=== PATIENT | female | born 1960 | race American Indian/Alaskan Native ===

== ENCOUNTER 2019-03-24 11:59 | Inpatient (IN) | payer MEDICARE ==
[2019-03-24] MEDS ORDERED: ASPIRIN PO ONE (12:19)
--- NOTE | 2019-03-24 13:04 | XRay Report ---
CHEST 1 VIEW INDICATION: Chest Pain COMPARISON: 08/04/2016 FINDINGS: Support devices: None Heart: Mild cardiomegaly, unchanged. Lungs/Pleura: Mild interstitial disease with small bilateral pleural effusions, suggesting mild conge stive failure. IMPRESSION: 1. Mild cardiomegaly and congestive failure. Signer Name: Dave Hinojosa MD Signed: 03/24/2019 12:59 PM Workstation Name: [id number]
[2019-03-24 13:16] LABS: Basophils % (Auto) 0.3 % (0.0-1.8); Eosinophils % (Auto) 1.4 % (0.0-4.3); Hemoglobin 8.3 gm/dl (10.1-14.3); Lymphocytes # (Auto) 0.3 K/mm3 (1.2-5.4); Lymphocytes % (Auto) 8.9 % (13.4-35.0); Mean Corpuscular HGB Conc 32 % (30-34); Mean Corpuscular Volume 93 fl (79-97); Monocytes # (Auto) 0.3 K/mm3 (0.0-0.8); Monocytes % (Auto) 7.6 % (0.0-7.3); Platelet Count 116 K/mm3 (140-440); Red Blood Count 2.79 M/mm3 (3.65-5.03); Red Cell Distribution Width 15.9 % (13.2-15.2)
--- NOTE | 2019-03-24 13:36 | Emergency Department Report ---
ED Chest Pain HPI - General Chief Complaint: Chest Pain Stated Complaint: CHEST PAIN Time Seen by Provider: 03/24/19 13:03 Source: patient Mode of arrival: Stretcher Limitations: No Limitations - History of Present Illness Initial Comments: 59-year-old female with ESRD, CHF, CAD with stents presents to ED with complaint of chest pain. Patient reports onset of chest pain this morning while she was in the shower. States it was sharp, became worse at dialysis. Patient states she received one hour of dialysis and was sent to the ER. Patient states chest pain currently resolved, also reports shortness of breath. Patient reports she was last dialyzed 4 days ago. Renal: Dr Richar SCHRADER Complaint: chest pain -: This morning Onset: other (while taking a shower) Pain Location: left chest Pain Radiation: none Severity: moderate Severity scale (0 -10): 10 Quality: sharp Consistency: now resolved Improves With: nothing Worsens With: nothing re: dyspnea. denies: nausea, vomting - Related Data Home Medications Medication Instructions Recorded Confirmed Last Taken Gabapentin [Neurontin] 300 mg PO TID 08/20/13 06/17/16 10/09/15 Sertraline [Zoloft] 50 mg PO DAILY 03/09/14 06/17/16 10/09/15 Aspirin [Aspirin BABY CHEW TAB] 81 mg PO QDAY 08/21/15 06/17/16 10/09/15 Insulin Aspart [NovoLOG Flexpen] 10 unit SQ TID 08/21/15 06/17/16 10/09/15 Insulin Glargine,Hum.rec.anlog 20 unit SQ QHS 08/21/15 06/17/16 10/09/15 [Lantus Solostar] Carvedilol [Coreg] 6.25 mg PO BID 10/09/15 06/17/16 10/09/15 Gemfibrozil [Lopid] 600 mg PO BID 10/09/15 06/17/16 10/09/15 Simvastatin [Zocor TAB] 40 mg PO QHS 10/09/15 06/17/16 10/09/15 Losartan [Cozaar] 100 mg PO QDAY 06/17/16 06/17/16 Unknown Previous Rx's Medication Instructions Recorded Last Taken Type levETIRAcetam [Keppra TAB] 500 mg PO BID tablet 08/24/15 10/09/15 Rx NIFEdipine XL [Procardia Xl] 60 mg PO QDAY #30 tablet 06/28/16 Unknown Rx hydrALAZINE [Apresoline TAB] 100 mg PO TID #90 tab 06/28/16 Unknown Rx predniSONE [Deltasone] 20 mg PO QDAY #10 tab 06/28/16 Unknown Rx oxyCODONE /ACETAMINOPHEN [Percocet 1 tab PO Q6HR PRN #20 tablet 08/04/16 Unknown Rx 5/325 mg] Allergies Allergy/AdvReac Type Severity Reaction Status Date / Time No Known Allergies Allergy Unverified 10/09/15 20:10 Heart Score - HEART Score History: Slightly suspicious EKG: Non-specific Age: 45-65 Risk factors: > 3 risk factors or hx of atherosclerotic disease Troponin: 1-3x normal limit HEART Score: 5 ED Review of Systems ROS: Stated complaint: CHEST PAIN Other details as noted in HPI Comment: All other systems reviewed and negative Constitutional: denies: chills, fever Respiratory: shortness of breath Cardiovascular: chest pain Gastrointestinal: denies: nausea, vomiting ED Past Medical Hx - Past Medical History Hx Hypertension: Yes (2011) Hx CVA: Yes (x4, 8 TIAs) Hx Congestive Heart Failure: Yes Hx Diabetes: Yes Hx Renal Disease: Yes (dialysis) Hx Arthritis: Yes Hx Headaches / Migraines: Yes Hx Seizures: Yes Hx Asthma: Yes Hx COPD: No Hx HIV: No - Surgical History Hx Breast Surgery: Yes (reduction (1979)) Additional Surgical History: breast reduction 1979, av fistula left arm - Social History Smoking Status: Unknown if ever smoked - Medications Home Medications: Home Medications Medication Instructions Recorded Confirmed Last Taken Type Gabapentin [Neurontin] 300 mg PO TID 08/20/13 06/17/16 10/09/15 History Sertraline [Zoloft] 50 mg PO DAILY 03/09/14 06/17/16 10/09/15 History Aspirin [Aspirin BABY CHEW TAB] 81 mg PO QDAY 08/21/15 06/17/16 10/09/15 History Insulin Aspart [NovoLOG Flexpen] 10 unit SQ TID 08/21/15 06/17/16 10/09/15 History Insulin Glargine,Hum.rec.anlog 20 unit SQ QHS 08/21/15 06/17/16 10/09/15 History [Lantus Solostar] levETIRAcetam [Keppra TAB] 500 mg PO BID tablet 08/24/15 06/17/16 10/09/15 Rx Carvedilol [Coreg] 6.25 mg PO BID 10/09/15 06/17/16 10/09/15 History Gemfibrozil [Lopid] 600 mg PO BID 10/09/15 06/17/16 10/09/15 History Simvastatin [Zocor TAB] 40 mg PO QHS 10/09/15 06/17/16 10/09/15 History Losartan [Cozaar] 100 mg PO QDAY 06/17/16 06/17/16 Unknown History NIFEdipine XL [Procardia Xl] 60 mg PO QDAY #30 tablet 06/28/16 Unknown Rx hydrALAZINE [Apresoline TAB] 100 mg PO TID #90 tab 06/28/16 Unknown Rx predniSONE [Deltasone] 20 mg PO QDAY #10 tab 06/28/16 Unknown Rx oxyCODONE /ACETAMINOPHEN [Percocet 1 tab PO Q6HR PRN #20 tablet 08/04/16 Unknown Rx 5/325 mg] ED Physical Exam - General Limitations: No Limitations General appearance: alert, in no apparent distress - Head Head exam: Present: atraumatic, normocephalic - Eye Eye exam: Present: normal appearance, PERRL, EOMI - ENT ENT exam: Present: mucous membranes moist - Neck Neck exam: Present: normal inspection - Respiratory Respiratory exam: Present: normal lung sounds bilaterally. Absent: respiratory distress - Cardiovascular Cardiovascular Exam: Present: regular rate, normal rhythm - GI/Abdominal GI/Abdominal exam: Present: soft. Absent: distended, tenderness - Extremities Exam Extremities exam: Present: normal inspection - Neurological Exam Neurological exam: Present: alert, oriented X3 - Psychiatric Psychiatric exam: Present: normal affect, normal mood - Skin Skin exam: Present: warm, dry, intact, normal color ED Course Vital Signs 03/24/19 03/24/19 03/24/19 12:15 13:15 14:15 Temperature 97.7 F Pulse Rate 85 80 Respiratory 19 16 16 Rate Blood Pressure 154/58 144/68 135/66 [Right] O2 Sat by Pulse 100 100 100 Oximetry 03/24/19 03/24/19 03/24/19 15:15 17:33 18:00 Temperature 98.2 F Pulse Rate 82 92 H 78 Respiratory 16 14 16 Rate Blood Pressure 151/72 133/103 145/88 [Right] O2 Sat by Pulse 100 100 100 Oximetry 03/24/19 19:15 Temperature 98.2 F Pulse Rate 84 Respiratory 13 Rate Blood Pressure 140/61 [Right] O2 Sat by Pulse 100 Oximetry ED Medical Decision Making - Lab Data Result diagrams: 03/24/19 13:04 03/24/19 13:04 - EKG Data -: EKG Interpreted by Me EKG shows normal: sinus rhythm, intervals, QRS complexes, ST-T waves Rate: normal - EKG Data Interpretation: no acute changes - Radiology Data Radiology results: report reviewed, image reviewed - Medical Decision Making - chest pain today, sent from dialysis, dialyzed x 1 hr - no resp distress, O2 sats normal - EKG shows no ST changes, trop elevated, however could also be due to renal function - remainder of labs unremarkable, including potassium - will admit to hospitalist for further workup - Differential Diagnosis ACS, pulm edema, pneumonia Critical care attestation.: If time is entered above; I have spent that time in minutes in the direct care of this critically ill patient, excluding procedure time. ED Disposition Clinical Impression: Acute chest pain, Pulmonary edema, ESRD (end stage renal disease) Disposition: OP ADMIT IP TO THIS HOSP Is pt being admited?: Yes Condition: Stable Time of Disposition: 16:24
[2019-03-24] MEDS ORDERED: BABY ASPIRIN PO ONE (14:17)
[2019-03-24] MEDS ORDERED: BABY ASPIRIN ONE (14:21)
[2019-03-24 14:24] LABS: Chol/HDL Ratio 2.41 %
[2019-03-24] MEDS ORDERED: PERCOCET 5/325 PO PRN ×2 (20:46→20:48)
[2019-03-24] MEDS ORDERED: ZOFRAN IV PRN (20:48)
[2019-03-24] MEDS ORDERED: REGLAN IV PRN (20:48)
[2019-03-24] MEDS ORDERED: DILAUDID IV PRN (20:48)
[2019-03-24] MEDS ORDERED: SODIUM CHLORIDE FLUSH SYRINGE 10 ML IV PRN (20:48)
[2019-03-24] MEDS ORDERED: TYLENOL PO PRN (20:48)
[2019-03-24] MEDS: ZOLOFT PO SCH (22:45)
[2019-03-24] MEDS: COREG PO SCH (22:45)
[2019-03-24] MEDS: LOPID PO SCH (22:45)
[2019-03-24] MEDS: PEPCID IV SCH (22:45)
[2019-03-24] MEDS: KEPPRA PO SCH (22:45)
[2019-03-24] MEDS: COZAAR PO SCH (22:45)
[2019-03-24] MEDS: NEURONTIN PO SCH (22:51)
[2019-03-24] MEDS ORDERED: HEPARIN/ 0.45% NACL-25,000 UNIT/500 ML 25,000 UNIT/500 ML BAG IV SCH (23:45)
[2019-03-25] MEDS: SODIUM CHLORIDE FLUSH SYRINGE 10 ML IV SCH ×3 (00:33→22:25)
[2019-03-25 00:41] LABS: Hematocrit 24.9 % (30.3-42.9); Hemoglobin 7.9 gm/dl (10.1-14.3)
[2019-03-25 00:54] LABS: INR 1.12 (0.87-1.13)
--- NOTE | 2019-03-25 03:36 | Event Note ---
Date: 03/24/19 See H/p in reports Chest pain r/o [place]
[2019-03-25] MEDS ORDERED: PROAIR IH PRN (03:39)
[2019-03-25] MEDS ORDERED: PROVENTIL IH PRN (03:51)
--- NOTE | 2019-03-25 03:51 | History and Physical Report ---
CHIEF COMPLAINT: Left-sided chest pain, 1-day duration. HISTORY OF PRESENT ILLNESS: A 59-year-old female with history of end-stage renal disease, CHF, coronary artery disease with stents, presents with chest pain of 1-day duration. Chest pain is sharp, became worse at dialysis center and the dialysis was stopped and was sent to the Emergency Room. No diaphoresis, no palpitations. No radiation. Pain is 6 on a scale of 1-10. No recent travel. No orthopnea. PAST MEDICAL HISTORY: As mentioned, peripheral neuropathy, insulin-dependent diabetes, hypertension, hyperlipidemia. PAST SURGICAL HISTORY: Breast reduction in 1979; AV fistula, left arm. SOCIAL HISTORY: Does not smoke. FAMILY HISTORY: Hypertension. CURRENT MEDICATIONS: On the chart including Lantus and regular insulin. Also, Keppra 500 b.i.d. REVIEW OF SYSTEMS: Significant for chest pain on the left side. Otherwise, review of systems negative. PHYSICAL EXAMINATION: GENERAL: Young elderly female, cooperative during examination. VITAL SIGNS: Blood pressure is 128/62, temperature is 97.9, pulse is 89, sats are 96%. HEENT: Unremarkable. Pupils equal and reactive. NECK: Supple, no lymphadenopathy, no thyromegaly. LUNGS: Clear to auscultation and percussion. Good air entry. CARDIOVASCULAR: S1, S2 heard. No gallop, no murmur, no rub. Apical impulse in left fifth intercostal space and midclavicular line. ABDOMEN: Soft and benign. No hepatosplenomegaly. No guarding, no rigidity. Hernial orifices are normal. EXTREMITIES: Good pedal pulses. No pedal edema. CENTRAL NERVOUS SYSTEM: Alert and oriented x 4, nonfocal exam. SKIN: Normal. LABORATORY DATA: Chest x-ray shows mild cardiomegaly and congestive failure. Otherwise, negative. EKG shows sinus tachycardia, no acute ST-T wave changes. Labs are significant for hemoglobin of 8.3, hematocrit of 26. White count of 3.3, platelet count of 115,000. Electrolytes are normal. BUN and creatinine is 42 and 6.3. Troponin is elevated at 0.123. BNP is more than 35,000. ASSESSMENT AND PLAN: 1. Chest pain, rule out myocardial infarction, chest pain protocol. 2. End-stage renal disease, on dialysis. Continue hemodialysis. 3. Insulin-dependent diabetes. Continue home insulin and coverage. 4. Chronic obstructive pulmonary disease. Continue albuterol. 5. Hyperlipidemia. Continue atorvastatin. 6. Coronary artery disease. Continue Plavix. 7. Congestive heart failure. The patient may need extra ultrafiltration. 8. Muscle spasms. Continue tizanidine. 9. Glaucoma. Continue Travatan eyedrops. 10. Deep venous thrombosis prophylaxis, 5000 q. 12. In summary, the patient has chest pain, rule out myocardial infarction, chest pain protocol. JOB# [id number] VSM/NTS
[2019-03-25 06:14] LABS: Hematocrit 22.4 % (30.3-42.9); Hemoglobin 7.3 gm/dl (10.1-14.3); Mean Corpuscular HGB Conc 33 % (30-34); Mean Corpuscular Volume 93 fl (79-97); Red Blood Count 2.42 M/mm3 (3.65-5.03); Red Cell Distribution Width 15.6 % (13.2-15.2)
[2019-03-25 06:27] LABS: Albumin 3.1 g/dL (3.9-5); Calcium 8.5 mg/dL (8.4-10.2)
[2019-03-25 06:44] LABS: Platelet Count 90 K/mm3 (140-440)
[2019-03-25] MEDS ORDERED: PERCOCET 5/325 PO PRN (07:00)
[2019-03-25] MEDS ORDERED: LEXISCAN IV ONE (07:12)
[2019-03-25] MEDS ORDERED: APRESOLINE PO SCH (08:00)
[2019-03-25] MEDS: HumaLOG SUB-Q SCH ×3 (08:09→17:22)
[2019-03-25 08:49] LABS: Basophils % (Manual) 0 % (0.0-1.8); Total Cells Counted 100
[2019-03-25 08:50] LABS: Anisocytosis Few; Ovalocytes Few; Platelet Estimate Consistent w Auto
[2019-03-25] MEDS ORDERED: ZOFRAN ONE (09:57)
[2019-03-25] MEDS ORDERED: PLAVIX PO SCH (10:00)
[2019-03-25] MEDS ORDERED: AMPHOJEL PO SCH (10:00)
[2019-03-25] MEDS ORDERED: DORZOLAMIDE OP SCH (10:00)
[2019-03-25] MEDS ORDERED: TIMOLOL OP SCH (10:00)
[2019-03-25] MEDS ORDERED: HEPARIN SUB-Q SCH (10:00)
[2019-03-25] MEDS: LOPID PO SCH ×2 (11:13→22:24)
[2019-03-25] MEDS: ROCALTROL PO SCH (11:13)
[2019-03-25] MEDS: DELTASONE PO SCH (11:14)
[2019-03-25] MEDS: BABY ASPIRIN PO SCH (11:15)
[2019-03-25] MEDS: PHOSLO PO SCH ×3 (11:16→18:30)
[2019-03-25] MEDS: KEPPRA PO SCH (11:16)
[2019-03-25] MEDS: NEURONTIN PO SCH ×3 (11:16→22:29)
[2019-03-25] MEDS: ZOLOFT PO SCH (11:17)
[2019-03-25] MEDS: PEPCID IV SCH (11:18)
--- NOTE | 2019-03-25 11:31 | Event Note ---
Date: 03/25/19 Stress test reviewed - EF of 42% and negative for ischemia or infarct. Vida Bennett NP / Elenita Snyder MD
[2019-03-25] MEDS: APRESOLINE PO SCH ×2 (12:34→22:24)
[2019-03-25] MEDS: COREG PO SCH ×2 (12:34→22:24)
[2019-03-25] MEDS: COZAAR PO SCH (12:34)
[2019-03-25] MEDS: PROCARDIA XL PO SCH (12:34)
--- NOTE | 2019-03-25 14:57 | Progress Note ---
Assessment and Plan Assessment and plan: Patient is a 59 yo woman with a history of ESRD on HD, diastolic CHF, CVA, CAD with shents, hypertension, IDDM, hypertension, dyslipidemia and peripheral neuropathy who presented with chest pains. Chest pains: negative stress but EF 42%, normal EF 50-55% on prior ECHO Suspected Acute Systolic heart failure with new Cardiomyopathy: consult Cardiology ESRD on HD: Nephrology consulted, needing HD Diarrhea: Ordered Imodium Suspected non onset nonischemic Cardiomyopathy New pancytopenia: consult Dr. Byrne, d/c heparin sq h/o Seizures but patient taken off keppra by pcp h/o CVA Disposition: continue inpatient care, evaluate the pancytopenia, evaluate the new onset Cardiomyopathy, Anticipate discharge in 1-2 days History Interval history: Patient was seen and examined. Follow-up on current diagnosis CP. No overnight events reported to me. Patient denies any chest pain, shortness breath, nausea/vomiting or severe headaches. Imaging, nursing note, chart, labs and old chart reviewed. Discussed with patient. She c/o diarrhea Gen: thin frail, chronic disable appearing, NAD, Awake, Alert, Orientated HEENT: NCAT, EOMI, PERRL, OP Clear Neck: supple, no adenopathy, no thyromegaly, no JVD CVS/Heart: RRR, normal S1S2, pulses present bilaterally Chest/Lungs: CTA B, Symmetrical chest expansion, good air entry bilaterally GI/Abdomen: soft, NTND, good bowel sounds, no guarding or rebound /Bladder: no suprapubic tenderness, no CVA or paraspinal tenderness Extermity/Skin: no c/c/e, no obvious rash MSK: FROM x 4 Neuro: CN 2-12 grossly intact, no new focal deficits Psych: calm Hospitalist Physical - Constitutional Vitals: Temp Pulse Resp BP Pulse Ox 97.3 F L 78 18 139/64 98 03/25/19 11:24 03/25/19 11:24 03/25/19 11:24 03/25/19 11:24 03/25/19 11:24 Results - Labs CBC & Chem 7: 03/25/19 04:59 03/25/19 04:59 Labs: Laboratory Last Values WBC 1.8 K/mm3 (4.5-11.0) L* 03/25/19 04:59 RBC 2.42 M/mm3 (3.65-5.03) L 03/25/19 04:59 Hgb 7.3 gm/dl (10.1-14.3) L 03/25/19 04:59 Hct 22.4 % (30.3-42.9) L 03/25/19 04:59 MCV 93 fl (79-97) 03/25/19 04:59 MCH 30 pg (28-32) 03/25/19 04:59 MCHC 33 % (30-34) 03/25/19 04:59 RDW 15.6 % (13.2-15.2) H 03/25/19 04:59 Plt Count 90 K/mm3 (140-440) L 03/25/19 04:59 Lymph % (Auto) 8.9 % (13.4-35.0) L 03/24/19 13:04 Sunflower % (Auto) 7.6 % (0.0-7.3) H 03/24/19 13:04 Eos % (Auto) 1.4 % (0.0-4.3) 03/24/19 13:04 Baso % (Auto) 0.3 % (0.0-1.8) 03/24/19 13:04 Lymph # 0.3 K/mm3 (1.2-5.4) L 03/24/19 13:04 Sunflower # 0.3 K/mm3 (0.0-0.8) 03/24/19 13:04 Eos # 0.0 K/mm3 (0.0-0.4) 03/24/19 13:04 Baso # 0.0 K/mm3 (0.0-0.1) 03/24/19 13:04 Add Manual Diff Complete 03/25/19 04:59 Total Counted 100 03/25/19 04:59 Seg Neutrophils % 81.8 % (40.0-70.0) H 03/24/19 13:04 Seg Neuts % (Manual) 76.0 % (40.0-70.0) H 03/25/19 04:59 0 % 03/25/19 04:59 16.0 % (13.4-35.0) 03/25/19 04:59 Reactive Lymphs % (Man) 0 % 03/25/19 04:59 4.0 % (0.0-7.3) 03/25/19 04:59 3.0 % (0.0-4.3) 03/25/19 04:59 0 % (0.0-1.8) 03/25/19 04:59 1.0 % 03/25/19 04:59 0 % 03/25/19 04:59 0 % 03/25/19 04:59 0 % 03/25/19 04:59 Nucleated RBC % Not Reportable 03/25/19 04:59 Seg Neutrophils # 2.7 K/mm3 (1.8-7.7) 03/24/19 13:04 Seg Neutrophils # Man 1.4 K/mm3 (1.8-7.7) L 03/25/19 04:59 Band Neutrophils # 0.0 K/mm3 03/25/19 04:59 0.3 K/mm3 (1.2-5.4) L 03/25/19 04:59 Abs React Lymphs (Man) 0.0 K/mm3 03/25/19 04:59 0.1 K/mm3 (0.0-0.8) 03/25/19 04:59 0.1 K/mm3 (0.0-0.4) 03/25/19 04:59 0.0 K/mm3 (0.0-0.1) 03/25/19 04:59 0.0 K/mm3 03/25/19 04:59 0.0 K/mm3 03/25/19 04:59 0.0 K/mm3 03/25/19 04:59 Blast Cells # 0.0 K/mm3 03/25/19 04:59 WBC Morphology Not Reportable 03/25/19 04:59 Hypersegmented Neuts Not Reportable 03/25/19 04:59 Hyposegmented Neuts Not Reportable 03/25/19 04:59 Hypogranular Neuts Not Reportable 03/25/19 04:59 Not Reportable 03/25/19 04:59 Not Reportable 03/25/19 04:59 Not Reportable 03/25/19 04:59 Not Reportable 03/25/19 04:59 Not Reportable 03/25/19 04:59 Not Reportable 03/25/19 04:59 Consistent w auto 03/25/19 04:59 Not Reportable 03/25/19 04:59 Plt Clumps, EDTA Not Reportable 03/25/19 04:59 Not Reportable 03/25/19 04:59 Not Reportable 03/25/19 04:59 Not Reportable 03/25/19 04:59 Plt Morphology Comment Not Reportable 03/25/19 04:59 RBC Morphology Not Reportable 03/25/19 04:59 Dimorphic RBCs Not Reportable 03/25/19 04:59 Not Reportable 03/25/19 04:59 Not Reportable 03/25/19 04:59 Not Reportable 03/25/19 04:59 Few 03/25/19 04:59 Not Reportable 03/25/19 04:59 Not Reportable 03/25/19 04:59 Not Reportable 03/25/19 04:59 Not Reportable 03/25/19 04:59 Not Reportable 03/25/19 04:59 Not Reportable 03/25/19 04:59 Not Reportable 03/25/19 04:59 Few 03/25/19 04:59 Not Reportable 03/25/19 04:59 Not Reportable 03/25/19 04:59 Not Reportable 03/25/19 04:59 Not Reportable 03/25/19 04:59 Not Reportable 03/25/19 04:59 Not Reportable 03/25/19 04:59 Not Reportable 03/25/19 04:59 Acanthocytes (Spur) Not Reportable 03/25/19 04:59 Rouleaux Not Reportable 03/25/19 04:59 Not Reportable 03/25/19 04:59 Not Reportable 03/25/19 04:59 Not Reportable 03/25/19 04:59 Not Reportable 03/25/19 04:59 Hem Pathologist Commnt No 03/25/19 04:59 PT 14.1 Sec. (12.2-14.9) 03/25/19 00:15 INR 1.12 (0.87-1.13) 03/25/19 00:15 APTT 29.0 Sec. (24.2-36.6) 03/25/19 00:15 Sodium 143 mmol/L (137-145) 03/25/19 04:59 Potassium 4.2 mmol/L (3.6-5.0) 03/25/19 04:59 Chloride 102.5 mmol/L (98-107) 03/25/19 04:59 Carbon Dioxide 25 mmol/L (22-30) 03/25/19 04:59 20 mmol/L 03/25/19 04:59 BUN 51 mg/dL (7-17) H 03/25/19 04:59 7.5 mg/dL (0.7-1.2) H 03/25/19 04:59 Estimated GFR 7 ml/min 03/25/19 04:59 7 % 03/25/19 04:59 Glucose 142 mg/dL (65-100) H 03/25/19 04:59 POC Glucose 131 (70-105) H 03/24/19 21:59 4.5 % (4-6) 03/24/19 13:04 Calcium 8.5 mg/dL (8.4-10.2) 03/25/19 04:59 0.30 mg/dL (0.1-1.2) 03/25/19 04:59 AST 11 units/L (5-40) 03/25/19 04:59 ALT 9 units/L (7-56) 03/25/19 04:59 109 units/L (35-129) 03/25/19 04:59 0.150 ng/mL (0.00-0.029) H* 03/25/19 04:59 NT-Pro-B Natriuret Pep > 55100 pg/mL (0-900) H 03/24/19 13:04 5.6 g/dL (6.3-8.2) L 03/25/19 04:59 3.1 g/dL (3.9-5) L 03/25/19 04:59 1.2 % 03/25/19 04:59 Triglycerides 112 mg/dL (2-149) 03/24/19 13:04 Cholesterol 128 mg/dL (50-199) 03/24/19 13:04 68 mg/dL (50-130) 03/24/19 13:04 53 mg/dL (40-59) 03/24/19 13:04 2.41 % 03/24/19 13:04 Active Medications - Current Medications Current Medications: Generic Name Dose Route Start Last Admin Trade Name Freq PRN Reason Stop Dose Admin Acetaminophen 650 mg 03/24/19 20:48 Tylenol PO Q4H PRN Pain MILD(1-3)/Fever >100.5/MCDANIEL Albuterol 2.5 mg 03/25/19 03:51 Proventil IH QIDRT PRN Shortness Of Breath Aspirin 81 mg 03/25/19 10:00 03/25/19 11:15 Baby Aspirin PO 81 mg QDAY LENCHO Administration Atorvastatin Calcium 10 mg 03/25/19 22:00 Lipitor PO QHS LENCHO Calcitriol 0.5 mcg 03/25/19 10:00 03/25/19 11:13 Rocaltrol PO 0.5 mcg DAILY LENCHO Administration Calcium Acetate 1,334 mg 03/25/19 08:00 03/25/19 13:31 Phoslo PO 1,334 mg TIDWM LENCHO Administration Carvedilol 6.25 mg 03/24/19 22:00 03/25/19 12:34 Coreg PO Not Given BID LENCHO Clopidogrel Bisulfate 75 mg 03/25/19 10:00 03/25/19 11:16 Plavix PO 75 mg QDAY LENCHO Administration Famotidine 20 mg 03/24/19 22:00 03/25/19 11:18 Pepcid IV 20 mg QAM LENCHO Administration Gabapentin 300 mg 03/24/19 23:30 03/25/19 13:32 Neurontin PO 300 mg TID LENCHO Administration Gemfibrozil 600 mg 03/24/19 22:00 03/25/19 11:13 Lopid PO 600 mg BID LENCHO Administration Hydralazine HCl 50 mg 03/25/19 10:00 03/25/19 12:34 Apresoline PO Not Given BID [facility] Hydromorphone HCl 0.5 mg 03/24/19 20:48 Dilaudid IV Q3H PRN Pain , Severe (7-10) Insulin Glargine 20 units 03/25/19 22:00 Lantus SUB-Q QHS [facility] Insulin Human Lispro 10 unit 03/25/19 08:00 03/25/19 12:35 Humalog SUB-Q Not Given TIDDIAB [facility] Latanoprost 1 drops 03/25/19 22:00 Latanoprost 0.005% OU QHS [facility] Loperamide HCl 4 mg 03/25/19 14:41 Imodium A-D PO 03/25/19 14:42 ONCE ONE Losartan Potassium 100 mg 08/13/19 21:00 03/25/19 12:34 Cozaar PO Not Given QDAY LENCHO Metoclopramide HCl 5 mg 03/24/19 20:48 Reglan IV Q6H PRN Nausea And Vomiting Miscellaneous Medication 1 each 03/25/19 10:00 Dorzolamide/Timolol/Pf [Dorzolamide-Timolol 2%-0.5%] OP BID LENCHO Nifedipine 60 mg 03/25/19 10:00 03/25/19 12:34 Procardia Xl PO Not Given QDAY [facility] Ondansetron HCl 4 mg 03/24/19 20:48 03/25/19 09:58 Zofran IV 4 mg Q8H PRN Administration Nausea And Vomiting Oxycodone/Acetaminophen 1 tab 03/25/19 07:00 Percocet 5/325 PO Q6H PRN Pain (4-6) Prednisone 20 mg 03/25/19 10:00 03/25/19 11:14 Deltasone PO 20 mg QDAY LENCHO Administration Sertraline HCl 50 mg 03/24/19 21:00 03/25/19 11:17 Zoloft PO 50 mg DAILY LENCHO Administration Sodium Chloride 10 ml 03/24/19 22:00 03/25/19 11:27 Sodium Chloride Flush Syringe 10 Ml IV 10 ml BID LENCHO Administration Sodium Chloride 10 ml 03/24/19 20:48 Sodium Chloride Flush Syringe 10 Ml IV PRN PRN LINE FLUSH
--- NOTE | 2019-03-25 15:21 | Consultation ---
History of Present Illness - Reason for Consult Consult date: 03/25/19 Medications and Allergies Allergies Allergy/AdvReac Type Severity Reaction Status Date / Time No Known Allergies Allergy Unverified 10/09/15 20:10 Home Medications Medication Instructions Recorded Confirmed Last Taken Type Gabapentin [Neurontin] 300 mg PO BID PRN 08/20/13 03/24/19 10/09/15 History Aspirin [Aspirin BABY CHEW TAB] 81 mg PO QDAY 08/21/15 03/24/19 03/23/19 08:00 History Carvedilol [Coreg] 6.25 mg PO BID 10/09/15 03/24/19 10/09/15 History ALBUTEROL Inhaler (OR & NICU) 2 puff IH QID PRN 03/24/19 03/24/19 Unknown History [Proair] Aluminum Hydroxide [Amphojel] 320 mg PO BID 03/24/19 03/24/19 Unknown History AtorvaSTATin [Lipitor] 10 mg PO QHS 03/24/19 03/24/19 Unknown History Calcitriol [Rocaltrol] 0.5 mcg PO DAILY 03/24/19 03/24/19 Unknown History Calcium Acetate 1,334 mg PO TID 03/24/19 03/25/19 Unknown History Clopidogrel [Plavix] 75 mg PO QDAY 03/24/19 03/25/19 Unknown History Dorzolamide/Timolol/Pf 1 each OP BID 03/24/19 03/25/19 Unknown History [Dorzolamide-Timolol 2%-0.5%] Hydralazine HCl 50 mg PO BID 03/24/19 03/25/19 Unknown History Omeprazole 40 mg PO DAILY 03/24/19 03/25/19 Unknown History Travoprost [Travatan Z] 5 ml OP QHS 03/24/19 03/25/19 Unknown History tiZANidine [Zanaflex 4mg TAB] 4 mg PO QHS 03/24/19 03/25/19 Unknown History Active Meds: Active Medications Acetaminophen (Tylenol) 650 mg PO Q4H PRN PRN Reason: Pain MILD(1-3)/Fever >100.5/MCDANIEL Albuterol (Proventil) 2.5 mg IH QIDRT PRN PRN Reason: Shortness Of Breath Aspirin (Baby Aspirin) 81 mg PO QDAY LENCHO Last Admin: 03/25/19 11:15 Dose: 81 mg Documented by: Atorvastatin Calcium (Lipitor) 10 mg PO QHS [facility] Calcitriol (Rocaltrol) 0.5 mcg PO DAILY [facility] Last Admin: 03/25/19 11:13 Dose: 0.5 mcg Documented by: Calcium Acetate (Phoslo) 1,334 mg PO TIDWM [facility] Last Admin: 03/25/19 13:31 Dose: 1,334 mg Documented by: Carvedilol (Coreg) 6.25 mg PO BID [facility] Last Admin: 03/25/19 12:34 Dose: Not Given Documented by: Clopidogrel Bisulfate (Plavix) 75 mg PO QDAY [facility] Last Admin: 03/25/19 11:16 Dose: 75 mg Documented by: Famotidine (Pepcid) 20 mg IV QAM [facility] Last Admin: 03/25/19 11:18 Dose: 20 mg Documented by: Gabapentin (Neurontin) 300 mg PO TID [facility] Last Admin: 03/25/19 13:32 Dose: 300 mg Documented by: Gemfibrozil (Lopid) 600 mg PO BID [facility] Last Admin: 03/25/19 11:13 Dose: 600 mg Documented by: Hydralazine HCl (Apresoline) 50 mg PO BID [facility] Last Admin: 03/25/19 12:34 Dose: Not Given Documented by: Hydromorphone HCl (Dilaudid) 0.5 mg IV Q3H PRN PRN Reason: Pain , Severe (7-10) Insulin Glargine (Lantus) 20 units SUB-Q QHS [facility] Insulin Human Lispro ([facility]) [facility] Last Admin: 03/25/19 12:35 Dose: Not Given Documented by: Latanoprost (Latanoprost 0.005%) 1 drops OU QHS [facility] Loperamide HCl (Imodium A-D) 4 mg PO ONCE ONE Stop: 03/25/19 15:31 Losartan Potassium (Cozaar) 100 mg PO QDAY [facility] Last Admin: 03/25/19 12:34 Dose: Not Given Documented by: Metoclopramide HCl (Reglan) 5 mg IV Q6H PRN PRN Reason: Nausea And Vomiting Miscellaneous Medication (Dorzolamide/Timolol/Pf [Dorzolamide-Timolol 2%-0.5%]) 1 each OP BID [facility] Nifedipine (Procardia Xl) 60 mg PO QDAY [facility] Last Admin: 03/25/19 12:34 Dose: Not Given Documented by: Ondansetron HCl (Zofran) 4 mg IV Q8H PRN PRN Reason: Nausea And Vomiting Last Admin: 03/25/19 09:58 Dose: 4 mg Documented by: Oxycodone/Acetaminophen (Percocet 5/325) 1 tab PO Q6H PRN PRN Reason: Pain (4-6) Prednisone (Deltasone) 20 mg PO QDAY [facility] Last Admin: 03/25/19 11:14 Dose: 20 mg Documented by: Sertraline HCl (Zoloft) 50 mg PO DAILY [facility] Last Admin: 03/25/19 11:17 Dose: 50 mg Documented by: Sodium Chloride (Sodium Chloride Flush Syringe 10 Ml) 10 ml IV BID [facility] Last Admin: 03/25/19 11:27 Dose: 10 ml Documented by: Sodium Chloride (Sodium Chloride Flush Syringe 10 Ml) 10 ml IV PRN PRN PRN Reason: LINE FLUSH Exam - Vital Signs Vital signs: Vital Signs Temp Pulse Resp BP Pulse Ox 97.7 F 85 19 154/58 100 03/24/19 12:15 03/24/19 12:15 03/24/19 12:15 03/24/19 12:15 03/24/19 12:15 Results - Lab Results 03/25/19 04:59 03/25/19 04:59 Most recent lab results Calcium 8.5 mg/dL (8.4-10.2) 03/25/19 04:59
[2019-03-25] MEDS ORDERED: IMODIUM A-D PO ONE (15:30)
--- NOTE | 2019-03-25 16:04 | Event Note ---
Date: 03/25/[address] Batista regarding patient and surgical consult. Patient with hx of ESRD now on HD. Previously on PD which was placed by [facility]. Pt was to follow up for removal of catheter. At some point however, PD catheter tubing was cut or broken and clamp was placed on it at outside hospital ER. Pt came to [facility] with chest pain and is being evaluated for this. She has hx of CAD with stenting. Stress test negative and EF 45%. Currently on plavix. PD catheter needs to be removed. Will need to hold plavix for at least 5 days prior to removal. Discussed with Dr. Rice. Will see and examine patient in am.
[2019-03-25] MEDS ORDERED: NACL 0.9% 100 ML IV PRN (16:10)
[2019-03-25 19:00] LABS: Hepatitis B Surface Antigen Non-Reactive (Negative); Hepatitis C Virus Antibody Non-Reactive (NonReactive)
[2019-03-25] MEDS ORDERED: ZANAFLEX PO SCH (22:00)
[2019-03-25] MEDS ORDERED: PRAVACHOL PO SCH (22:00)
[2019-03-25] MEDS ORDERED: LANTUS SUB-Q SCH (22:00)
[2019-03-25] MEDS: LATANOPROST 0.005% OU SCH (22:25)
--- NOTE | 2019-03-26 02:17 | Treadmill Report ---
CARDIAC IMAGING REPORT INDICATION FOR PROCEDURE: Chest pain. Informed consent was obtained. Rest and stress nuclear cardiac images were performed following the intravenous administration of technetium-99m Myoview per protocol. Vasodilator stress was achieved with the intravenous administration of 0.4 mg of Lexiscan per protocol. Images were acquired in a 180-degree arc from 45 degrees CORBIN to 45 degrees LPO. After data acquisition and reconstruction, the images were processed and reoriented into the vertical long, horizontal long, and horizontal short axis slices. A polar color map of the horizontal short axis slices was generated and reviewed. The rotating planar images reviewed in cinematic format on the computer console. Gated SPECT imaging demonstrates a post-stress left ventricular ejection fraction of 42%. The left ventricle is diffusely mildly hypokinetic. Left ventricular systolic thickening appears grossly normal. Myocardial perfusion imaging demonstrates no significant cavity change between stress and rest. No significant stress induced perfusion defects are seen. Nuclear cardiac imaging demonstrates mild post-stress left ventricular systolic dysfunction with no significant evidence for myocardial ischemia or necrosis. JOB# [id number] IFEOMA/SHANNAN
--- NOTE | 2019-03-26 07:36 | Consultation ---
History of Present Illness Consult date: 03/26/19 Chief complaint: PD catheter - History of present illness History of present illness: 59 yo F with ESRD now on HD, CAD with stents who presented to hospital with chest pain, fluid overload. The patient was on PD since 2017 but has been transitioned to HD and no longer is using peritoneal dialysis catheter. She states that last week she was trying to remove the steristrip around the tubing and cut the tubing by mistake. She has a clamp on the catheter since. She states the skin near the catheter exit site is sore. She denies abdominal pain, n/v. Surgery consulted to evaluate patient for PD catheter removal. She states she has been off of plavix for at least 1 year and it was stopped by her conveyor tender. She did get one dose yesterday. Past History Past Medical History: CAD, COPD, dialysis, ESRD Past Surgical History: Other (cardiac cath with stents, PD catheter, fistula) Social history: no significant social history Family history: no significant family history Medications and Allergies Allergies Allergy/AdvReac Type Severity Reaction Status Date / Time No Known Allergies Allergy Unverified 10/09/15 20:10 Home Medications Medication Instructions Recorded Confirmed Last Taken Type Gabapentin [Neurontin] 300 mg PO BID PRN 08/20/13 03/24/19 10/09/15 History Aspirin [Aspirin BABY CHEW TAB] 81 mg PO QDAY 08/21/15 03/24/19 03/23/19 08:00 History Carvedilol [Coreg] 6.25 mg PO BID 10/09/15 03/24/19 10/09/15 History ALBUTEROL Inhaler (OR & NICU) 2 puff IH QID PRN 03/24/19 03/24/19 Unknown History [Proair] Aluminum Hydroxide [Amphojel] 320 mg PO BID 03/24/19 03/24/19 Unknown History AtorvaSTATin [Lipitor] 10 mg PO QHS 03/24/19 03/24/19 Unknown History Calcitriol [Rocaltrol] 0.5 mcg PO DAILY 03/24/19 03/24/19 Unknown History Calcium Acetate 1,334 mg PO TID 03/24/19 03/25/19 Unknown History Clopidogrel [Plavix] 75 mg PO QDAY 03/24/19 03/25/19 Unknown History Dorzolamide/Timolol/Pf 1 each OP BID 03/24/19 03/25/19 Unknown History [Dorzolamide-Timolol 2%-0.5%] Hydralazine HCl 50 mg PO BID 03/24/19 03/25/19 Unknown History Omeprazole 40 mg PO DAILY 03/24/19 03/25/19 Unknown History Travoprost [Travatan Z] 5 ml OP QHS 03/24/19 03/25/19 Unknown History tiZANidine [Zanaflex 4mg TAB] 4 mg PO QHS 03/24/19 03/25/19 Unknown History Active Meds: Active Medications Acetaminophen (Tylenol) 650 mg PO Q4H PRN PRN Reason: Pain MILD(1-3)/Fever >100.5/MCDANIEL Albuterol (Proventil) 2.5 mg IH QIDRT PRN PRN Reason: Shortness Of Breath Aspirin (Baby Aspirin) 81 mg PO QDAY [facility] Last Admin: 03/25/19 11:15 Dose: 81 mg Documented by: Atorvastatin Calcium (Lipitor) 10 mg PO QHS [facility] Last Admin: 03/25/19 22:24 Dose: 10 mg Documented by: Calcitriol (Rocaltrol) 0.5 mcg PO DAILY [facility] Last Admin: 03/25/19 11:13 Dose: 0.5 mcg Documented by: Calcium Acetate (Phoslo) 1,334 mg PO TIDWM [facility] Last Admin: 03/25/19 18:30 Dose: Not Given Documented by: Carvedilol (Coreg) 6.25 mg PO BID [facility] Last Admin: 03/25/19 22:24 Dose: 6.25 mg Documented by: Clopidogrel Bisulfate (Plavix) 75 mg PO QDAY [facility] Last Admin: 03/25/19 11:16 Dose: 75 mg Documented by: Famotidine (Pepcid) 20 mg IV QAM [facility] Last Admin: 03/25/19 11:18 Dose: 20 mg Documented by: Gabapentin (Neurontin) 300 mg PO TID [facility] Last Admin: 03/25/19 22:29 Dose: 300 mg Documented by: Gemfibrozil (Lopid) 600 mg PO BID [facility] Last Admin: 03/25/19 22:24 Dose: 600 mg Documented by: Hydralazine HCl (Apresoline) 50 mg PO BID [facility] Last Admin: 03/25/19 22:24 Dose: 50 mg Documented by: Hydromorphone HCl (Dilaudid) 0.5 mg IV Q3H PRN PRN Reason: Pain , Severe (7-10) Sodium Chloride (Nacl 0.9%) 100 mls @ 999 mls/hr IV GREY PRN PRN Reason: Hypotension Insulin Glargine (Lantus) 20 units SUB-Q QHS [facility] Last Admin: 03/25/19 22:25 Dose: Not Given Documented by: Insulin Human Lispro (Humalog) 10 unit SUB-Q TIDDIAB [facility] Last Admin: 03/25/19 17:22 Dose: Not Given Documented by: Latanoprost (Latanoprost 0.005%) 1 drops OU QHS [facility] Last Admin: 03/25/19 22:25 Dose: Not Given Documented by: Losartan Potassium (Cozaar) 100 mg PO QDAY [facility] Last Admin: 03/25/19 12:34 Dose: Not Given Documented by: Metoclopramide HCl (Reglan) 5 mg IV Q6H PRN PRN Reason: Nausea And Vomiting Miscellaneous Medication (Dorzolamide/Timolol/Pf [Dorzolamide-Timolol 2%-0.5%]) 1 each OP BID [facility] Nifedipine (Procardia Xl) 60 mg PO QDAY [facility] Last Admin: 03/25/19 12:34 Dose: Not Given Documented by: Ondansetron HCl (Zofran) 4 mg IV Q8H PRN PRN Reason: Nausea And Vomiting Last Admin: 03/25/19 09:58 Dose: 4 mg Documented by: Oxycodone/Acetaminophen (Percocet 5/325) 1 tab PO Q6H PRN PRN Reason: Pain (4-6) Prednisone (Deltasone) 20 mg PO QDAY [facility] Last Admin: 03/25/19 11:14 Dose: 20 mg Documented by: Sertraline HCl (Zoloft) 50 mg PO DAILY [facility] Last Admin: 03/25/19 11:17 Dose: 50 mg Documented by: Sodium Chloride (Sodium Chloride Flush Syringe 10 Ml) 10 ml IV BID [facility] Last Admin: 03/25/19 22:25 Dose: 10 ml Documented by: Sodium Chloride (Sodium Chloride Flush Syringe 10 Ml) 10 ml IV PRN PRN PRN Reason: LINE FLUSH Review of Systems All systems: negative (10 pt ROS performed and negative except for that listed in HPI) Exam Vital Signs Temp Pulse Resp BP Pulse Ox 97.7 F 85 19 154/58 100 03/24/19 12:15 03/24/19 12:15 03/24/19 12:15 03/24/19 12:15 03/24/19 12:15 Narrative exam: Gen: AAOx3. NAD ENT: no scleral icterus or conjunctival pallor CV: S1, S2+ Resp; even and unlabored Abd; soft, NT, ND. PD catheter exit site LLQ with clamp on tubing. No erythema or drainage from tract. Ext: no c/c/e Results - Labs 03/25/19 04:59 03/25/19 04:59 Abnormal lab results 03/25/19 Range/Units 04:59 Seg Neuts % (Manual) 76.0 H (40.0-70.0) % Seg Neutrophils # Man 1.4 L (1.8-7.7) K/mm3 Lymphocytes # (Manual) 0.3 L (1.2-5.4) K/mm3 Assessment and Plan 59 yo F with 1. broken PD catheter 2. ESRD on HD 3. CAD Plan: 1. stress test negative, EF 42% 2. on plavix in hospital, only one dose received yesterday. Will need to be held prior to any surgical intervention. Discussed with Dr. Rice 3. HD per nephro 4. Timing of removal of PD catheter will depend on if plavix can be held and if medically stable to undergo anesthesia. Thank you, please call with questions.
[2019-03-26] MEDS: PHOSLO PO SCH ×3 (08:27→17:39)
[2019-03-26] MEDS: NEURONTIN PO SCH ×3 (08:28→21:49)
[2019-03-26] MEDS: HumaLOG SUB-Q SCH ×2 (08:29→14:02)
--- NOTE | 2019-03-26 08:39 | Event Note ---
Date: 03/26/19 [id number]
--- NOTE | 2019-03-26 08:56 | Progress Note ---
Assessment and Plan Impression: * End stage renal disease on hemodialysis * Pulmonary edema * Chest pain * Malfunctioning PD catheter * Anemia secondary to ESRD * Secondary hyperPTH Plan: * Patient is s/p HD yesterday. Will plan for HD again today * UF as tolerated * Surgery following - needs PD cathteter removed prior to discharge * Cardiology recommendations reviewed * Dose medications for renal function * Epogen TIW prn * Renal diet Subjective Date of service: 03/26/19 Interval history: Patient reports breathing has improved Objective - Vital Signs Vital signs: Vital Signs - 12hr 03/25/19 03/25/19 03/25/19 21:25 21:42 22:00 Temperature 98.0 F 98.8 F Pulse Rate 80 81 73 Respiratory 16 16 20 Rate Blood Pressure 147/71 162/70 O2 Sat by Pulse 92 98 Oximetry 03/25/19 03/26/19 22:24 03:45 Temperature 97.8 F Pulse Rate 80 71 Respiratory 16 Rate Blood Pressure 147/71 112/57 O2 Sat by Pulse 96 Oximetry - General Appearance General appearance: well-developed, well-nourished EENT: ATNC Respiratory: Present: Clear to Ascultation Cardiology: regular Gastrointestinal: normal, no tenderness, no distended Integumentary: no rash, warm and dry Psychiatric: cooperative - Lab 03/27/19 04:10 03/25/19 04:59 Most recent lab results Calcium 8.5 mg/dL (8.4-10.2) 03/25/19 04:59 Medications & Allergies - Medications Allergies/Adverse Reactions: Allergies No Known Allergies Allergy (Unverified 10/09/15 20:10) Home Medications: Home Medications Medication Instructions Recorded Confirmed Last Taken Type Gabapentin [Neurontin] 300 mg PO BID PRN 08/20/13 03/24/19 10/09/15 History Aspirin [Aspirin BABY CHEW TAB] 81 mg PO QDAY 08/21/15 03/24/19 03/23/19 08:00 History Carvedilol [Coreg] 6.25 mg PO BID 10/09/15 03/24/19 10/09/15 History ALBUTEROL Inhaler (OR & NICU) 2 puff IH QID PRN 03/24/19 03/24/19 Unknown History [Proair] Aluminum Hydroxide [Amphojel] 320 mg PO BID 03/24/19 03/24/19 Unknown History AtorvaSTATin [Lipitor] 10 mg PO QHS 03/24/19 03/24/19 Unknown History Calcitriol [Rocaltrol] 0.5 mcg PO DAILY 03/24/19 03/24/19 Unknown History Calcium Acetate 1,334 mg PO TID 03/24/19 03/25/19 Unknown History Clopidogrel [Plavix] 75 mg PO QDAY 03/24/19 03/25/19 Unknown History Dorzolamide/Timolol/Pf 1 each OP BID 03/24/19 03/25/19 Unknown History [Dorzolamide-Timolol 2%-0.5%] Hydralazine HCl 50 mg PO BID 03/24/19 03/25/19 Unknown History Omeprazole 40 mg PO DAILY 03/24/19 03/25/19 Unknown History Travoprost [Travatan Z] 5 ml OP QHS 03/24/19 03/25/19 Unknown History tiZANidine [Zanaflex 4mg TAB] 4 mg PO QHS 03/24/19 03/25/19 Unknown History Active Medications: Generic Name Dose Route Start Last Admin Trade Name Freq PRN Reason Stop Dose Admin Acetaminophen 650 mg 03/24/19 20:48 Tylenol PO Q4H PRN Pain MILD(1-3)/Fever >100.5/MCDANIEL Albuterol 2.5 mg 03/25/19 03:51 Proventil IH QIDRT PRN Shortness Of Breath Aspirin 81 mg 03/25/19 10:00 03/25/19 11:15 Baby Aspirin PO 81 mg QDAY [facility] Administration Atorvastatin Calcium 10 mg 03/25/19 22:00 03/25/19 22:24 Lipitor PO 10 mg QHS [facility] Administration Calcitriol 0.5 mcg 03/25/19 10:00 03/25/19 11:13 Rocaltrol PO 0.5 mcg DAILY [facility] Administration Calcium Acetate 1,334 mg 03/25/19 08:00 03/26/19 08:27 Phoslo PO 1,334 mg TIDWM [facility] Administration Carvedilol 6.25 mg 03/24/19 22:00 03/25/19 22:24 Coreg PO 6.25 mg BID [facility] Administration Clopidogrel Bisulfate 75 mg 03/25/19 10:00 03/25/19 11:16 Plavix PO 75 mg QDAY [facility] Administration Famotidine 20 mg 03/24/19 22:00 03/25/19 11:18 Pepcid IV 20 mg QAM [facility] Administration Gabapentin 300 mg 03/24/19 23:30 03/26/19 08:28 Neurontin PO 300 mg TID [facility] Administration Gemfibrozil 600 mg 03/24/19 22:00 03/25/19 22:24 Lopid PO 600 mg BID [facility] Administration Hydralazine HCl 50 mg 03/25/19 10:00 03/25/19 22:24 Apresoline PO 50 mg BID [facility] Administration Hydromorphone HCl 0.5 mg 03/24/19 20:48 Dilaudid IV Q3H PRN Pain , Severe (7-10) Sodium Chloride 100 mls @ 999 mls/hr 03/25/19 16:10 Nacl 0.9% IV GREY PRN Hypotension Insulin Glargine 20 units 03/25/19 22:00 03/25/19 22:25 Lantus SUB-Q Not Given QHS [facility] Insulin Human Lispro 10 unit 03/25/19 08:00 03/26/19 08:29 Humalog SUB-Q Not Given [facility] Latanoprost 1 drops 03/25/19 22:00 03/25/19 22:25 Latanoprost 0.005% OU Not Given QHS [facility] Losartan Potassium 100 mg 03/24/19 21:00 03/25/19 12:34 Cozaar PO Not Given QDAY [facility] Metoclopramide HCl 5 mg 03/24/19 20:48 Reglan IV Q6H PRN Nausea And Vomiting Miscellaneous Medication 1 each 03/25/19 10:00 Dorzolamide/Timolol/Pf [Dorzolamide-Timolol 2%-0.5%] OP BID [facility] Nifedipine 60 mg 03/25/19 10:00 03/25/19 12:34 Procardia Xl PO Not Given QDAY [facility] Ondansetron HCl 4 mg 03/24/19 20:48 03/25/19 09:58 Zofran IV 4 mg Q8H PRN Administration Nausea And Vomiting Oxycodone/Acetaminophen 1 tab 03/25/19 07:00 Percocet 5/325 PO Q6H PRN Pain (4-6) Prednisone 20 mg 03/25/19 10:00 03/25/19 11:14 Deltasone PO 20 mg QDAY [facility] Administration Sertraline HCl 50 mg 03/24/19 21:00 03/25/19 11:17 Zoloft PO 50 mg DAILY [facility] Administration Sodium Chloride 10 ml 03/24/19 22:00 03/25/19 22:25 Sodium Chloride Flush Syringe 10 Ml IV 10 ml BID [facility] Administration Sodium Chloride 10 ml 03/24/19 20:48 Sodium Chloride Flush Syringe 10 Ml IV PRN PRN LINE FLUSH
[2019-03-26] MEDS ORDERED: NACL 0.9% 100 ML IV PRN (10:00)
--- NOTE | 2019-03-26 12:49 | Consultation ---
History of Present Illness Consult date: 03/26/19 Consult reason: pre op evaluation History of present illness: This is a 59-year old woman with a of coronary artery disease status post PCI at [facility] in 2017, ejection fraction 45% by cardiac cath. Patient also has hypertension and end stage renal disease. She is now admitted chest pain. In addition, while hospitalized, patient complained of soreness near the PD catheter exit site. Patient was on peritoneal dialysis but has been transitioned to HD and no longer is using peritoneal dialysis catheter. She awaits PD catheter removal. A cardiac consultation has been requested for recommendation of plavix stoppage before surgical intervention. Patient reports she no longer takes Plavix. In fact, patient reports this was stopped by her electric relay tester over a year ago. She is currently chest pain free. She denies unusual shortness of breath and palpitations. A stress thallium done this admission reports no ischemia with an ejection fraction of 42%. Past History Past Medical History: CAD, COPD, dialysis, ESRD Past Surgical History: Other (cardiac cath with stents, PD catheter, fistula) Social history: no significant social history Family history: no significant family history Medications and Allergies Allergies Allergy/AdvReac Type Severity Reaction Status Date / Time No Known Allergies Allergy Unverified 10/09/15 20:10 Home Medications Medication Instructions Recorded Confirmed Last Taken Type Gabapentin [Neurontin] 300 mg PO BID PRN 08/20/13 03/24/19 10/09/15 History Aspirin [Aspirin BABY CHEW TAB] 81 mg PO QDAY 08/21/15 03/24/19 03/23/19 08:00 History Carvedilol [Coreg] 6.25 mg PO BID 10/09/15 03/24/19 10/09/15 History ALBUTEROL Inhaler (OR & NICU) 2 puff IH QID PRN 03/24/19 03/24/19 Unknown History [Proair] Aluminum Hydroxide [Amphojel] 320 mg PO BID 03/24/19 03/24/19 Unknown History AtorvaSTATin [Lipitor] 10 mg PO QHS 03/24/19 03/24/19 Unknown History Calcitriol [Rocaltrol] 0.5 mcg PO DAILY 03/24/19 03/24/19 Unknown History Calcium Acetate 1,334 mg PO TID 03/24/19 03/25/19 Unknown History Clopidogrel [Plavix] 75 mg PO QDAY 03/24/19 03/25/19 Unknown History Dorzolamide/Timolol/Pf 1 each OP BID 03/24/19 03/25/19 Unknown History [Dorzolamide-Timolol 2%-0.5%] Hydralazine HCl 50 mg PO BID 03/24/19 03/25/19 Unknown History Omeprazole 40 mg PO DAILY 03/24/19 03/25/19 Unknown History Travoprost [Travatan Z] 5 ml OP QHS 03/24/19 03/25/19 Unknown History tiZANidine [Zanaflex 4mg TAB] 4 mg PO QHS 03/24/19 03/25/19 Unknown History Active Meds: Active Medications Acetaminophen (Tylenol) 650 mg PO Q4H PRN PRN Reason: Pain MILD(1-3)/Fever >100.5/MCDANIEL Albuterol (Proventil) 2.5 mg IH QIDRT PRN PRN Reason: Shortness Of Breath Aspirin (Baby Aspirin) 81 mg PO QDAY [facility] Last Admin: 03/25/19 11:15 Dose: 81 mg Documented by: Atorvastatin Calcium (Lipitor) 10 mg PO QHS [facility] Last Admin: 03/25/19 22:24 Dose: 10 mg Documented by: Calcitriol (Rocaltrol) 0.5 mcg PO DAILY [facility] Last Admin: 03/25/19 11:13 Dose: 0.5 mcg Documented by: Calcium Acetate (Phoslo) 1,334 mg PO TIDWM [facility] Last Admin: 03/26/19 08:27 Dose: 1,334 mg Documented by: Carvedilol (Coreg) 6.25 mg PO BID [facility] Last Admin: 03/25/19 22:24 Dose: 6.25 mg Documented by: Famotidine (Pepcid) 20 mg IV QAM [facility] Last Admin: 03/25/19 11:18 Dose: 20 mg Documented by: Gabapentin (Neurontin) 300 mg PO TID [facility] Last Admin: 03/26/19 08:28 Dose: 300 mg Documented by: Gemfibrozil (Lopid) 600 mg PO BID [facility] Last Admin: 03/25/19 22:24 Dose: 600 mg Documented by: Hydralazine HCl (Apresoline) 50 mg PO BID [facility] Last Admin: 03/25/19 22:24 Dose: 50 mg Documented by: Hydromorphone HCl (Dilaudid) 0.5 mg IV Q3H PRN PRN Reason: Pain , Severe (7-10) Sodium Chloride (Nacl 0.9%) 100 mls @ 999 mls/hr IV GREY PRN PRN Reason: Hypotension Insulin Glargine (Lantus) 20 units SUB-Q QHS [facility] Last Admin: 03/25/19 22:25 Dose: Not Given Documented by: Insulin Human Lispro (Humalog) 10 unit SUB-Q TIDDIAB [facility] Last Admin: 03/26/19 08:29 Dose: Not Given Documented by: Latanoprost (Latanoprost 0.005%) 1 drops OU QHS [facility] Last Admin: 03/25/19 22:25 Dose: Not Given Documented by: Losartan Potassium (Cozaar) 100 mg PO QDAY [facility] Last Admin: 03/25/19 12:34 Dose: Not Given Documented by: Metoclopramide HCl (Reglan) 5 mg IV Q6H PRN PRN Reason: Nausea And Vomiting Miscellaneous Medication (Dorzolamide/Timolol/Pf [Dorzolamide-Timolol 2%-0.5%]) 1 each OP BID [facility] Nifedipine (Procardia Xl) 60 mg PO QDAY [facility] Last Admin: 03/25/19 12:34 Dose: Not Given Documented by: Ondansetron HCl (Zofran) 4 mg IV Q8H PRN PRN Reason: Nausea And Vomiting Last Admin: 03/25/19 09:58 Dose: 4 mg Documented by: Oxycodone/Acetaminophen (Percocet 5/325) 1 tab PO Q6H PRN PRN Reason: Pain (4-6) Prednisone (Deltasone) 20 mg PO QDAY [facility] Last Admin: 03/25/19 11:14 Dose: 20 mg Documented by: Sertraline HCl (Zoloft) 50 mg PO DAILY [facility] Last Admin: 03/25/19 11:17 Dose: 50 mg Documented by: Sodium Chloride (Sodium Chloride Flush Syringe 10 Ml) 10 ml IV BID [facility] Last Admin: 03/25/19 22:25 Dose: 10 ml Documented by: Sodium Chloride (Sodium Chloride Flush Syringe 10 Ml) 10 ml IV PRN PRN PRN Reason: LINE FLUSH Physical Examination Vital Signs Temp Pulse Resp BP Pulse Ox 97.7 F 85 19 154/58 100 03/24/19 12:15 03/24/19 12:15 03/24/19 12:15 03/24/19 12:15 03/24/19 12:15 General appearance: no acute distress HEENT: Positive: PERRL Neck: Positive: trachea midline Cardiac: Positive: Reg Rate and Rhythm Lungs: Positive: Decreased Breath Sounds Neuro: Positive: Grossly Intact Results 03/25/19 04:59 03/25/19 04:59 Assessment and Plan Chest pain MPI done this admission reports no ischemia with an ejection fraction of 42%. ESRD on HD Broken PD catheter Hx of CAD Hypertension
--- NOTE | 2019-03-26 13:31 | Event Note ---
Date: 03/26/19 Patient is a 59-year-old woman with end-stage renal disease, previously on peritoneal dialysis, but now on hemodialysis. She was admitted to the hospital 3 days ago with symptoms of headache, atypical chest pain and shortness of breath. A thallium myocardial perfusion scan ordered by the medical service was completed and was negative. Cardiology consultation is requested today, to comment on stoppage of patient's Plavix therapy in anticipation of removal of her peritoneal dialysis catheter. On my history taken from the patient, she states that she no longer takes Plavix, it was discontinued more than a year ago by her director of recruitment and admissions at [place]. She has a history of coronary artery disease and underwent coronary stent placement to the right coronary artery in 2017. Presumably Plavix was stopped after she completed a guideline directed duration of therapy. Currently, she takes only a baby aspirin and no anticoagulants. Recommendations: No cardiac contraindications to removal of PD catheter, patient is not on Plavix therapy, continue other recommended therapies for her coronary disease.
[2019-03-26] MEDS: COZAAR PO SCH (14:01)
[2019-03-26] MEDS: BABY ASPIRIN PO SCH (14:01)
[2019-03-26] MEDS: APRESOLINE PO SCH ×2 (14:01→21:49)
[2019-03-26] MEDS: COREG PO SCH ×2 (14:01→21:48)
[2019-03-26] MEDS: SODIUM CHLORIDE FLUSH SYRINGE 10 ML IV SCH ×2 (14:02→21:50)
[2019-03-26] MEDS: ZOLOFT PO SCH (14:02)
[2019-03-26] MEDS: LOPID PO SCH (14:02)
[2019-03-26] MEDS: DELTASONE PO SCH (14:02)
[2019-03-26] MEDS: PROCARDIA XL PO SCH (14:02)
[2019-03-26] MEDS: ROCALTROL PO SCH (14:02)
[2019-03-26] MEDS: PEPCID IV SCH (14:02)
--- NOTE | 2019-03-26 15:10 | Progress Note ---
Assessment and Plan Assessment and plan: Patient is a 59 yo woman with a history of ESRD on HD, diastolic CHF, CVA, CAD with shents, hypertension, prior IDDM, hypertension, dyslipidemia and peripheral neuropathy who presented with chest pains. Chest pains, suspected costochondritis: negative stress but EF 42%, normal EF 50-55% on prior ECHO Acute Systolic heart failure with new Cardiomyopathy and h/o chronic diastolic heart failure: consult Cardiology, input noted ESRD on HD: Nephrology consulted, needing HD PD catheter malfunction, pt cut it and PHH clamped it was scissors: to be removed tomorrow Diarrhea: Ordered Imodium x 1, helped Non onset nonischemic Cardiomyopathy: medical management per Cardiology New pancytopenia: consult Dr. Byrne, d/c heparin sq h/o Seizures but patient taken off keppra by pcp h/o CVA Disposition: continue inpatient care, evaluate the pancytopenia, await Heme/Onc recommendation, repeat CBC, remove PD catheter tomorrow and Anticipate discharge soon after [facility], we went over her med list. Patient has admitted in the past of giving her medication to her brother. Home health went into the home and wasn't comfortable with that situation. It appears she shares medication with different family members History Interval history: Patient was seen and examined. Follow-up on current diagnosis CP. No overnight events reported to me. Patient denies any chest pain, shortness breath, nausea/vomiting or severe headaches. Imaging, nursing note, chart, labs and old chart reviewed. Discussed with patient. She c/o diarrhea resolved Hospitalist Physical - Physical exam Narrative exam: Gen: thin frail, chronic disable appearing, NAD, Awake, Alert, Orientated HEENT: NCAT, EOMI, PERRL, OP Clear Neck: supple, no adenopathy, no thyromegaly, no JVD CVS/Heart: RRR, normal S1S2, pulses present bilaterally Chest/Lungs: CTA B, Symmetrical chest expansion, good air entry bilaterally GI/Abdomen: soft, NTND, good bowel sounds, no guarding or rebound /Bladder: no suprapubic tenderness, no CVA or paraspinal tenderness Extermity/Skin: no c/c/e, no obvious rash MSK: FROM x 4 Neuro: CN 2-12 grossly intact, no new focal deficits Psych: calm - Constitutional Vitals: Temp Pulse Resp BP Pulse Ox 122.0 F H 81 16 136/66 99 03/26/19 09:24 03/26/19 09:24 03/26/19 09:24 03/26/19 09:24 03/26/19 09:24 General appearance: Present: no acute distress Results - Labs CBC & Chem 7: 03/25/19 04:59 03/25/19 04:59 Labs: Laboratory Last Values WBC 1.8 K/mm3 (4.5-11.0) L* 03/25/19 04:59 RBC 2.42 M/mm3 (3.65-5.03) L 03/25/19 04:59 Hgb 7.3 gm/dl (10.1-14.3) L 03/25/19 04:59 Hct 22.4 % (30.3-42.9) L 03/25/19 04:59 MCV 93 fl (79-97) 03/25/19 04:59 MCH 30 pg (28-32) 03/25/19 04:59 MCHC 33 % (30-34) 03/25/19 04:59 RDW 15.6 % (13.2-15.2) H 03/25/19 04:59 Plt Count 90 K/mm3 (140-440) L 03/25/19 04:59 Lymph % (Auto) 8.9 % (13.4-35.0) L 03/24/19 13:04 [place] % (Auto) 7.6 % (0.0-7.3) H 03/24/19 13:04 Eos % (Auto) 1.4 % (0.0-4.3) 03/24/19 13:04 Baso % (Auto) 0.3 % (0.0-1.8) 03/24/19 13:04 Lymph # 0.3 K/mm3 (1.2-5.4) L 03/24/19 13:04 [place] # 0.3 K/mm3 (0.0-0.8) 03/24/19 13:04 Eos # 0.0 K/mm3 (0.0-0.4) 03/24/19 13:04 Baso # 0.0 K/mm3 (0.0-0.1) 03/24/19 13:04 Add Manual Diff Complete 03/25/19 04:59 Total Counted 100 03/25/19 04:59 Seg Neutrophils % 81.8 % (40.0-70.0) H 03/24/19 13:04 Seg Neuts % (Manual) 76.0 % (40.0-70.0) H 03/25/19 04:59 0 % 03/25/19 04:59 16.0 % (13.4-35.0) 03/25/19 04:59 Reactive Lymphs % (Man) 0 % 03/25/19 04:59 4.0 % (0.0-7.3) 03/25/19 04:59 3.0 % (0.0-4.3) 03/25/19 04:59 0 % (0.0-1.8) 03/25/19 04:59 1.0 % 03/25/19 04:59 0 % 03/25/19 04:59 0 % 03/25/19 04:59 0 % 03/25/19 04:59 Nucleated RBC % Not Reportable 03/25/19 04:59 Seg Neutrophils # 2.7 K/mm3 (1.8-7.7) 03/24/19 13:04 Seg Neutrophils # Man 1.4 K/mm3 (1.8-7.7) L 03/25/19 04:59 Band Neutrophils # 0.0 K/mm3 03/25/19 04:59 0.3 K/mm3 (1.2-5.4) L 03/25/19 04:59 Abs React Lymphs (Man) 0.0 K/mm3 03/25/19 04:59 0.1 K/mm3 (0.0-0.8) 03/25/19 04:59 0.1 K/mm3 (0.0-0.4) 03/25/19 04:59 0.0 K/mm3 (0.0-0.1) 03/25/19 04:59 0.0 K/mm3 03/25/19 04:59 0.0 K/mm3 03/25/19 04:59 0.0 K/mm3 03/25/19 04:59 Blast Cells # 0.0 K/mm3 03/25/19 04:59 WBC Morphology Not Reportable 03/25/19 04:59 Hypersegmented Neuts Not Reportable 03/25/19 04:59 Hyposegmented Neuts Not Reportable 03/25/19 04:59 Hypogranular Neuts Not Reportable 03/25/19 04:59 Not Reportable 03/25/19 04:59 Not Reportable 03/25/19 04:59 Not Reportable 03/25/19 04:59 Not Reportable 03/25/19 04:59 Not Reportable 03/25/19 04:59 Not Reportable 03/25/19 04:59 Consistent w auto 03/25/19 04:59 Not Reportable 03/25/19 04:59 Plt Clumps, EDTA Not Reportable 03/25/19 04:59 Not Reportable 03/25/19 04:59 Not Reportable 03/25/19 04:59 Not Reportable 03/25/19 04:59 Plt Morphology Comment Not Reportable 03/25/19 04:59 RBC Morphology Not Reportable 03/25/19 04:59 Dimorphic RBCs Not Reportable 03/25/19 04:59 Not Reportable 03/25/19 04:59 Not Reportable 03/25/19 04:59 Not Reportable 03/25/19 04:59 Few 03/25/19 04:59 Not Reportable 03/25/19 04:59 Not Reportable 03/25/19 04:59 Not Reportable 03/25/19 04:59 Not Reportable 03/25/19 04:59 Not Reportable 03/25/19 04:59 Not Reportable 03/25/19 04:59 Not Reportable 03/25/19 04:59 Few 03/25/19 04:59 Not Reportable 03/25/19 04:59 Not Reportable 03/25/19 04:59 Not Reportable 03/25/19 04:59 Not Reportable 03/25/19 04:59 Not Reportable 03/25/19 04:59 Not Reportable 03/25/19 04:59 Not Reportable 03/25/19 04:59 Acanthocytes (Spur) Not Reportable 03/25/19 04:59 Rouleaux Not Reportable 03/25/19 04:59 Not Reportable 03/25/19 04:59 Not Reportable 03/25/19 04:59 Not Reportable 03/25/19 04:59 Not Reportable 03/25/19 04:59 Hem Pathologist Commnt No 03/25/19 04:59 PT 14.1 Sec. (12.2-14.9) 03/25/19 00:15 INR 1.12 (0.87-1.13) 03/25/19 00:15 APTT 29.0 Sec. (24.2-36.6) 03/25/19 00:15 Sodium 143 mmol/L (137-145) 03/25/19 04:59 Potassium 4.2 mmol/L (3.6-5.0) 03/25/19 04:59 Chloride 102.5 mmol/L (98-107) 03/25/19 04:59 Carbon Dioxide 25 mmol/L (22-30) 03/25/19 04:59 20 mmol/L 03/25/19 04:59 BUN 51 mg/dL (7-17) H 03/25/19 04:59 7.5 mg/dL (0.7-1.2) H 03/25/19 04:59 Estimated GFR 7 ml/min 03/25/19 04:59 7 % 03/25/19 04:59 Glucose 142 mg/dL (65-100) H 03/25/19 04:59 POC Glucose 116 (70-105) H 03/26/19 07:50 4.5 % (4-6) 03/24/19 13:04 Calcium 8.5 mg/dL (8.4-10.2) 03/25/19 04:59 0.30 mg/dL (0.1-1.2) 03/25/19 04:59 AST 11 units/L (5-40) 03/25/19 04:59 ALT 9 units/L (7-56) 03/25/19 04:59 109 units/L (35-129) 03/25/19 04:59 0.150 ng/mL (0.00-0.029) H* 03/25/19 04:59 NT-Pro-B Natriuret Pep > 85879 pg/mL (0-900) H 03/24/19 13:04 5.6 g/dL (6.3-8.2) L 03/25/19 04:59 3.1 g/dL (3.9-5) L 03/25/19 04:59 1.2 % 03/25/19 04:59 Triglycerides 112 mg/dL (2-149) 03/24/19 13:04 Cholesterol 128 mg/dL (50-199) 03/24/19 13:04 68 mg/dL (50-130) 03/24/19 13:04 53 mg/dL (40-59) 03/24/19 13:04 2.41 % 03/24/19 13:04 Hepatitis A IgM Ab Non-reactive (NonReactive) 03/25/19 17:55 Hep Bs Antigen Non-reactive (Negative) 03/25/19 17:55 Hep B Core IgM Ab Non-reactive (NonReactive) 03/25/19 17:55 Non-reactive (NonReactive) 03/25/19 17:55 Active Medications - Current Medications Current Medications: Generic Name Dose Route Start Last Admin Trade Name Freq PRN Reason Stop Dose Admin Acetaminophen 650 mg 03/24/19 20:48 Tylenol PO Q4H PRN Pain MILD(1-3)/Fever >100.5/MCDANIEL Albuterol 2.5 mg 03/25/19 03:51 Proventil IH QIDRT PRN Shortness Of Breath Aspirin 81 mg 03/25/19 10:00 03/26/19 14:01 Baby Aspirin PO Not Given QDAY [facility] Atorvastatin Calcium 10 mg 03/25/19 22:00 03/25/19 22:24 Lipitor PO 10 mg QHS [facility] Administration Calcitriol 0.5 mcg 03/25/19 10:00 03/26/19 14:02 Rocaltrol PO Not Given DAILY [facility] Calcium Acetate 1,334 mg 03/25/19 08:00 03/26/19 14:35 Phoslo PO 1,334 mg TIDWM [facility] Administration Carvedilol 6.25 mg 03/24/19 22:00 03/26/19 14:01 Coreg PO Not Given BID [facility] Gabapentin 300 mg 03/24/19 23:30 03/26/19 14:35 Neurontin PO 300 mg TID [facility] Administration Hydralazine HCl 50 mg 03/25/19 10:00 03/26/19 14:01 Apresoline PO Not Given BID [facility] Hydromorphone HCl 0.5 mg 03/24/19 20:48 Dilaudid IV Q3H PRN Pain , Severe (7-10) Sodium Chloride 100 mls @ 999 mls/hr 03/26/19 10:00 Nacl 0.9% IV GREY PRN Hypotension Latanoprost 1 drops 03/25/19 22:00 03/25/19 22:25 Latanoprost 0.005% OU Not Given QHS [facility] Metoclopramide HCl 5 mg 03/24/19 20:48 Reglan IV Q6H PRN Nausea And Vomiting Miscellaneous Medication 1 each 03/25/19 10:00 Dorzolamide/Timolol/Pf [Dorzolamide-Timolol 2%-0.5%] OP BID [facility] Ondansetron HCl 4 mg 03/24/19 20:48 03/25/19 09:58 Zofran IV 4 mg Q8H PRN Administration Nausea And Vomiting Oxycodone/Acetaminophen 1 tab 03/25/19 07:00 Percocet 5/325 PO Q6H PRN Pain (4-6) Sodium Chloride 10 ml 03/24/19 22:00 03/26/19 14:02 Sodium Chloride Flush Syringe 10 Ml IV Not Given BID [facility] Sodium Chloride 10 ml 03/24/19 20:48 Sodium Chloride Flush Syringe 10 Ml IV PRN PRN LINE FLUSH
[2019-03-26 16:07] LABS: Hematocrit 25.5 % (30.3-42.9); Hemoglobin 8.1 gm/dl (10.1-14.3); Mean Corpuscular Volume 94 fl (79-97); Red Blood Count 2.72 M/mm3 (3.65-5.03)
[2019-03-26 16:08] LABS: Mean Corpuscular HGB Conc 32 % (30-34); Platelet Count 79 K/mm3 (140-440); Red Cell Distribution Width 15.7 % (13.2-15.2)
[2019-03-26] MEDS ORDERED: NACL 0.9 (PRIMING MACHINE ONLY DIALYSIS) MC ONE (19:26)
[2019-03-26] MEDS: LATANOPROST 0.005% OU SCH (21:49)
--- NOTE | 2019-03-27 00:22 | Consultation ---
REFERRED BY: Dr. Rice. REASON FOR CONSULTATION: Anemia, leukopenia, thrombocytopenia. HISTORY OF PRESENT ILLNESS: I saw the patient, a 59-year-old female in the medical floor. The patient came to the hospital. The patient has end-stage renal disease, heart failure, coronary artery disease with stents. She came to the hospital with chest pain while at dialysis center. Dialysis was stopped and she was sent here. The patient in the past was on PD and now she is on hemodialysis. The patient says she has been on dialysis since 2016. The patient told me that a few months ago she was found to have low blood count, but she has not seen a leadite heater. The labs from 2018 showed mild thrombocytopenia. Otherwise, white cell hemoglobin were normal. During this admission, the patient has been seen by Nephrology team and surgical team. The patient also had shortness of breath. At this time, no headache, no visual disturbances, no ear discharge. The patient had nausea issues. No abdominal pain, no diarrhea, no dysuria. No seizure or syncope or loss of consciousness. No fever. Chest pain and shortness of breath present. At this time, no nausea. ALLERGIES: None. HOME MEDICATIONS: Include Neurontin, Zoloft, aspirin, insulin, gemfibrozil, simvastatin, losartan. PAST MEDICAL HISTORY: The patient was on Keppra and hydralazine. PAST MEDICAL HISTORY: As above. Neuropathy, diabetes, hypertension, hyperlipidemia. SURGICAL HISTORY: Breast reduction surgery in 1979. PAST SURGICAL HISTORY: AV fistula, left arm. SOCIAL HISTORY: Does not smoke. FAMILY HISTORY: Hypertension. PHYSICAL EXAMINATION: VITAL SIGNS: Temperature 97, pulse 71, respirations 16, BP 112/57. HEENT: Pallor present. No icterus. NECK: No neck lymph nodes. HEART: S1, S2. LUNGS: Clear to auscultation anteriorly. ABDOMEN: Soft. PD catheter seen. Left arm dialysis access seen. No calf tenderness. NEUROLOGIC: Alert, awake. LABORATORY DATA: White cell 1.8, hemoglobin 7.3, MCV 93, platelet 90. Potassium 4.2, creatinine 7.5, calcium 8.5, bilirubin 0.3. Trend of white cell count shows white cell count was normal in July 2016, it was 3.6 on April 2018. Hemoglobin was 11 in 2018. Before that she was anemic and then again she is anemic at this admission. Platelet count was 174 in July 2016 and 120 in April 2018. RADIOLOGY: Chest x-ray was done. ASSESSMENT AND PLAN: 1. Anemia, leukopenia, thrombocytopenia. As per the patient, this has been present for a few months when I reviewed the notes. There has been some cytopenias since 2018. The patient with end-stage renal disease, usually gets Procrit with dialysis. This may be a marrow issue. This needs to be investigated as an inpatient or an outpatient. 2. At this time, neutrophil count is 1.4. We will follow. 3. History of chest pain being treated for same. The patient has a history of myocardial infarction. 4. Diabetes. 5. Chronic obstructive pulmonary disease. 6. Hyperlipidemia. 7. End-stage renal disease, on dialysis. 8. Congestive heart failure. 9. Glaucoma. 10. We will do deficiency investigations for the anemia and follow the patient. JOB# [id number] ANN-MARIE/SHANNAN
[2019-03-27 05:08] LABS: Hematocrit 28.2 % (30.3-42.9); Hemoglobin 9.1 gm/dl (10.1-14.3); Mean Corpuscular HGB Conc 32 % (30-34); Mean Corpuscular Volume 93 fl (79-97); Platelet Count 100 K/mm3 (140-440); Red Blood Count 3.03 M/mm3 (3.65-5.03); Red Cell Distribution Width 15.5 % (13.2-15.2)
[2019-03-27 05:12] LABS: INR 1.1 (0.87-1.13)
[2019-03-27 05:45] LABS: Iron 57 ug/dL (37-170); Total Iron Binding Capacity 210 mcg/dL (250-450)
--- NOTE | 2019-03-27 06:59 | Hem/Onc Progress Note ---
Assessment and Plan 1. Anemia, leukopenia, thrombocytopenia. As per the patient, this has been present for a few months when I reviewed the notes. There has been some cytopenias since 2018. The patient with end-stage renal disease, usually gets Procrit with dialysis. This may be a marrow issue. This needs to be investigated as an inpatient or an outpatient. 2. At this time, neutrophil count is 1.4. We will follow. 3. History of chest pain being treated for same. The patient has a history of myocardial infarction. 4. Diabetes. 5. Chronic obstructive pulmonary disease. 6. Hyperlipidemia. 7. End-stage renal disease, on dialysis. 8. Congestive heart failure. 9. Glaucoma. plan for PD cath procedure CT in 2018 had shown splenomegaly - Patient Problems (1) Thrombocytopenia Current Visit: Yes Status: Acute Subjective Date of service: 03/27/19 Objective - Exam Narrative Exam: Pain - none General appearance appears better Performance status limited self care Eyes - no icterus ENT no thrush LNs cervical not palpable Neck - normal ROM Respiratory SOB Breath sounds - CTA CVS S1 S2 + Extremities normal temperature General GI Soft Rectal deferred female - deferred Skin warm Musculoskeletal moving normal Neurologically no focal deficit - Constitutional Vitals: Last Vital Signs Temp 98.3 F 03/27/19 04:37 Pulse 82 03/27/19 04:36 Resp 18 03/27/19 04:36 BP 118/89 03/27/19 04:36 Pulse Ox 98 03/27/19 04:36 - Labs Lab Results: Laboratory Results - last 24 hr 03/25/19 03/25/19 03/25/19 08:07 12:40 21:35 WBC RBC Hgb Hct MCV MCH MCHC RDW Plt Count PT INR POC Glucose 108 H 115 H 110 H Iron TIBC Ferritin Vitamin B12 03/26/19 03/26/19 03/26/19 07:50 15:27 16:12 WBC 2.4 L RBC 2.72 L Hgb 8.1 L Hct 25.5 L MCV 94 MCH 30 MCHC 32 RDW 15.7 H Plt Count 79 L PT INR POC Glucose 116 H 125 H Iron TIBC Ferritin Vitamin B12 03/26/19 03/27/19 03/27/19 21:22 04:10 04:10 WBC RBC Hgb Hct MCV MCH MCHC RDW Plt Count PT INR POC Glucose 126 H Iron 57 TIBC 210 L Ferritin 1084.0 H Vitamin B12 03/27/19 03/27/19 03/27/19 04:10 04:10 04:10 WBC 2.1 L RBC 3.03 L Hgb 9.1 L Hct 28.2 L MCV 93 MCH 30 MCHC 32 RDW 15.5 H Plt Count 100 L PT 13.9 INR 1.10 POC Glucose Iron TIBC Ferritin Vitamin B12 2000 H Medications & Allergies - Medications Allergies/Adverse Reactions: Allergies No Known Allergies Allergy (Unverified 10/09/15 20:10) Home Medications: Home Medications Medication Instructions Recorded Confirmed Last Taken Type RX: Gabapentin [Neurontin] 300 mg PO BID PRN 08/20/13 03/24/19 10/09/15 History RX: Aspirin [Aspirin BABY CHEW TAB] 81 mg PO QDAY 08/21/15 03/24/19 03/23/19 08:00 History RX: Carvedilol [Coreg] 6.25 mg PO BID 10/09/15 03/24/19 10/09/15 History ALBUTEROL Inhaler (OR & NICU) 2 puff IH QID PRN 03/24/19 03/24/19 Unknown History [Proair] Aluminum Hydroxide [Amphojel] 320 mg PO BID 03/24/19 03/24/19 Unknown History AtorvaSTATin [Lipitor] 10 mg PO QHS 03/24/19 03/24/19 Unknown History Calcitriol [Rocaltrol] 0.5 mcg PO DAILY 03/24/19 03/24/19 Unknown History Clopidogrel [Plavix] 75 mg PO QDAY 03/24/19 03/25/19 Unknown History Dorzolamide/Timolol/Pf 1 each OP BID 03/24/19 03/25/19 Unknown History [Dorzolamide-Timolol 2%-0.5%] RX: Calcium Acetate 1,334 mg PO TID 03/24/19 03/25/19 Unknown History RX: Hydralazine HCl 50 mg PO BID 03/24/19 03/25/19 Unknown History RX: Omeprazole 40 mg PO DAILY 03/24/19 03/25/19 Unknown History Travoprost [Travatan Z] 5 ml OP QHS 03/24/19 03/25/19 Unknown History tiZANidine [Zanaflex 4mg TAB] 4 mg PO QHS 03/24/19 03/25/19 Unknown History Active Medications: Generic Name Dose Route Start Last Admin Trade Name Freq PRN Reason Stop Dose Admin Acetaminophen 650 mg 03/24/19 20:48 Tylenol PO Q4H PRN Pain MILD(1-3)/Fever >100.5/MCDANIEL Albuterol 2.5 mg 03/25/19 03:51 Proventil IH QIDRT PRN Shortness Of Breath Aspirin 81 mg 03/25/19 10:00 03/26/19 14:01 Baby Aspirin PO Not Given QDAY [facility] Atorvastatin Calcium 10 mg 03/25/19 22:00 03/26/19 21:49 Lipitor PO 10 mg QHS [facility] Administration Calcitriol 0.5 mcg 03/25/19 10:00 03/26/19 14:02 Rocaltrol PO Not Given DAILY [facility] Calcium Acetate 1,334 mg 03/25/19 08:00 03/26/19 17:39 Phoslo PO 1,334 mg TIDWM [facility] Administration Carvedilol 6.25 mg 03/24/19 22:00 03/26/19 21:48 Coreg PO 6.25 mg BID [facility] Administration Gabapentin 300 mg 03/24/19 23:30 03/26/19 21:49 Neurontin PO 300 mg TID [facility] Administration Hydralazine HCl 50 mg 03/25/19 10:00 03/26/19 21:49 Apresoline PO 50 mg BID [facility] Administration Hydromorphone HCl 0.5 mg 03/24/19 20:48 Dilaudid IV Q3H PRN Pain , Severe (7-10) Sodium Chloride 100 mls @ 999 mls/hr 03/26/19 10:00 Nacl 0.9% IV GREY PRN Hypotension Latanoprost 1 drops 03/25/19 22:00 03/26/19 21:49 Latanoprost 0.005% OU 1 drops QHS [facility] Administration Metoclopramide HCl 5 mg 03/24/19 20:48 Reglan IV Q6H PRN Nausea And Vomiting Miscellaneous Medication 1 each 03/25/19 10:00 Dorzolamide/Timolol/Pf [Dorzolamide-Timolol 2%-0.5%] OP BID [facility] Ondansetron HCl 4 mg 03/24/19 20:48 03/25/19 09:58 Zofran IV 4 mg Q8H PRN Administration Nausea And Vomiting Oxycodone/Acetaminophen 1 tab 03/25/19 07:00 Percocet 5/325 PO Q6H PRN Pain (4-6) Sodium Chloride 10 ml 03/24/19 22:00 03/26/19 21:50 Sodium Chloride Flush Syringe 10 Ml IV 10 ml BID [facility] Administration Sodium Chloride 10 ml 03/24/19 20:48 Sodium Chloride Flush Syringe 10 Ml IV PRN PRN LINE FLUSH
[2019-03-27] MEDS: NEURONTIN PO SCH ×3 (07:32→21:04)
[2019-03-27] MEDS: PHOSLO PO SCH ×3 (07:32→18:20)
--- NOTE | 2019-03-27 08:24 | Ultrasound Report ---
ULTRASOUND ABDOMEN, COMPLETE INDICATION: pancytopenai - for liver ans spleen eval. COMPARISON: CT abdomen pelvis without contrast dated 2017. FINDINGS: Pancreas: No significant abnormality. Abdominal Aorta: No significant abnormality. IVC: No significant abnormality. Liver: The liver measures 16.3 cm in length. No significant abnormality. Normal hepatopedal blood fl ow in the main portal vein. Gallbladder: A small amount of sludge and at least one gallstone measuring up to 1 cm is identified w ithin the gallbladder. There is mild nonspecific gallbladder wall thickening measuring 3.7 mm which i s probably secondary to ascites.. Bile ducts: No significant abnormality. Common bile duct measures 5.5 mm. Kidneys: Right: 7.8 cm in length. The right kidney is atrophic but no focal lesion or obstruction. Left: 7.2 cm in length. The left kidney is atrophic but no focal lesion or obstruction. Spleen: There is borderline to mild splenomegaly measuring up to 13 cm in length.. Free fluid: Small ascites is identified.. Additional Findings: Small right pleural effusion is partially imaged.. IMPRESSION: Cholelithiasis. No convincing findings of acute cholecystitis. Chronic renal parenchymal disease. Small ascites and small right pleural effusion. Borderline to mild splenomegaly.. Signer Name: Torey Pierson Jr, MD Signed: 03/27/2019 8:20 AM Workstation Name: [id number]
[2019-03-27] MEDS: ROCALTROL PO SCH (09:46)
[2019-03-27] MEDS: BABY ASPIRIN PO SCH (09:46)
[2019-03-27] MEDS: COREG PO SCH ×2 (09:46→21:03)
[2019-03-27] MEDS: APRESOLINE PO SCH ×2 (09:46→21:04)
[2019-03-27] MEDS: SODIUM CHLORIDE FLUSH SYRINGE 10 ML IV SCH ×2 (09:58→21:05)
--- NOTE | 2019-03-27 10:16 | Progress Note ---
Assessment and Plan Chest pain, atypical MPI done this admission reports no ischemia with an ejection fraction of 42%. Pancytopenia ESRD on previously on peritoneal dialysis but now on hemodialysis Broken PD catheter Hx of CAD Hypertension Recommend: No cardiac contraindications to removal of PD catheter. Patient is not on Plavix therapy. Continue other recommended therapies for her coronary disease. Subjective Date of service: 03/27/19 Interval history: Patient has no cardiac complaints. Objective Vital Signs Temp Pulse Resp BP Pulse Ox 03/27/19 07:58 18 100 03/27/19 07:19 98.4 F 79 16 134/57 96 03/27/19 04:37 98.3 F 03/27/19 04:36 82 18 118/89 98 03/26/19 22:44 98.5 F 03/26/19 22:43 74 18 130/57 97 03/26/19 22:00 74 03/26/19 20:34 98.7 F 03/26/19 20:33 82 20 138/57 99 03/26/19 15:59 75 96 03/26/19 13:25 98.2 F 78 18 119/62 03/26/19 13:00 80 112/60 03/26/19 12:45 82 110/60 03/26/19 12:30 80 102/59 03/26/19 12:15 68 104/58 03/26/19 12:00 68 104/56 03/26/19 11:45 74 122/69 03/26/19 11:30 76 120/62 03/26/19 11:15 73 128/66 03/26/19 11:00 69 125/62 03/26/19 10:45 71 135/76 03/26/19 10:30 72 140/73 - Physical Examination General: No Apparent Distress HEENT: Positive: PERRL Neck: Positive: trachea midline Cardiac: Positive: Reg Rate and Rhythm Lungs: Positive: Decreased Breath Sounds Neuro: Positive: Grossly Intact Extremities: Absent: edema - Labs and Meds Coagulation 03/27/19 Range/Units 04:10 PT 13.9 (12.2-14.9) Sec. INR 1.10 (0.87-1.13) CBC 03/26/19 03/27/19 Range/Units 15:27 04:10 WBC 2.4 L 2.1 L (4.5-11.0) K/mm3 RBC 2.72 L 3.03 L (3.65-5.03) M/mm3 Hgb 8.1 L 9.1 L (10.1-14.3) gm/dl Hct 25.5 L 28.2 L (30.3-42.9) % Plt Count 79 L 100 L (140-440) K/mm3
[2019-03-27] MEDS ORDERED: ceFAZolin 2 GM in NACL 0.9% 100 ML IV ONE (11:30)
--- NOTE | 2019-03-27 11:50 | Anesthesia Consultation ---
Anesthesia Consult and Med Hx Date of service: 03/27/19 - Airway Anesthetic Teeth Evaluation: Dentures, Partials ROM Head & Neck: Adequate Mental/Hyoid Distance: Adequate Mallampati Class: Class III Intubation Access Assessment: Possibly Difficult - Pulmonary Exam CTA: Yes - Cardiac Exam Cardiac Exam: RRR - Pre-Operative Health Status ASA Pre-Surgery Classification: ASA3 Proposed Anesthetic Plan: General - Pulmonary Hx Smoking: Yes (Quit 2011) Hx Respiratory Symptoms: No COPD: Yes (inhalers prn) - Cardiovascular System Hx Hypertension: Yes Hx Coronary Artery Disease: Yes Hx Heart Attack/AMI: Yes (2017) Hx Percutaneous Transluminal Coronary Angioplasty (PTCA): Yes (x3 in 2017) Hx Cardia Arrhythmia: No Hx Pacemaker: No Hx Internal Defibrillator: No - Central Nervous System Hx Seizures: Yes (last seizure 2015; no longer on AEDs) CVA: Yes (x 3; most recent 1988 with residual L sided weakness) Hx Back Pain: Yes - Endocrine Hx End Stage Renal Disease: Yes (last HD 03/25/19) Hx Liver Disease: No Hx Non-Insulin Dependent Diabetes: Yes Hx Thyroid Disease: No - Hematic Hx Anemia: Yes (pancytopenia; followed by heme/onc) - Other Systems Hx Obesity: No - Additional Comments Anesthesia Medical History Comments: No hx anesthetic complications. Presented with CP this admission which was determined to be noncardiac in nature. Stress test this admission negative for ischemia with EF 42%.
--- NOTE | 2019-03-27 11:50 | Anesthesia Day of Surgery ---
Anesthesia Day of Surgery - Day of Surgery Patient Examined: Yes Patient H&P Reviewed: Yes Patient is NPO: Yes Beta Blockers: Yes
[2019-03-27] MEDS ORDERED: NACL 0.9% 1000 ML 1,000 ML IV SCH (12:00)
[2019-03-27] MEDS ORDERED: SUBLIMAZE IV PRN (12:00)
[2019-03-27] MEDS ORDERED: NACL 0.9% 1000 ML 1,000 ML ONE (12:18)
[2019-03-27 12:26] LABS: Calcium 9.2 mg/dL (8.4-10.2)
[2019-03-27] MEDS ORDERED: XYLOCAINE 1%/ EPI 1:100,000 INFILTRATI ONE ×3 (13:09→13:52)
[2019-03-27] MEDS ORDERED: MARCAINE 0.5% INFILTRATI ONE ×3 (13:09→13:52)
[2019-03-27] MEDS ORDERED: DIPRIVAN 10 MG/ML IV ONE (13:23)
[2019-03-27] MEDS ORDERED: XYLOCAINE MPF 2% ONE (13:23)
[2019-03-27] MEDS ORDERED: SUBLIMAZE ONE (13:23)
[2019-03-27] MEDS ORDERED: VERSED ONE (13:40)
[2019-03-27] MEDS ORDERED: NACL 0.9% IR ONE (13:52)
[2019-03-27] MEDS ORDERED: ZOFRAN ONE (13:54)
--- NOTE | 2019-03-27 13:59 | Progress Note ---
Assessment and Plan Impression: * End stage renal disease on hemodialysis * Pulmonary edema * Chest pain * Malfunctioning PD catheter * Anemia secondary to ESRD * Secondary hyperPTH Plan: * Patient is s/p HD on Sat and * No acute indication for HD today * Will plan for HD tomorrow - UF as tolerated * Surgery to remove PD catheter today * Cardiology recommendations reviewed * Dose medications for renal function * Epogen TIW prn * Renal diet Subjective Date of service: 03/27/19 Interval history: Patient off the floor at time of visit. Vital signs, labs, nursing notes, MD notes reviewed. Objective - Vital Signs Vital signs: Vital Signs - 12hr 03/27/19 03/27/19 03/27/19 04:36 04:37 07:19 Temperature 98.3 F 98.4 F Pulse Rate 82 79 Respiratory 18 16 Rate Blood Pressure 118/89 134/57 O2 Sat by Pulse 98 96 Oximetry 03/27/19 03/27/19 03/27/19 07:58 10:00 11:56 Temperature 97.3 F L Pulse Rate 75 79 Respiratory 18 18 Rate Blood Pressure 148/67 O2 Sat by Pulse 100 96 Oximetry 03/27/19 12:20 Temperature 97.3 F L Pulse Rate 79 Respiratory 18 Rate Blood Pressure 148/67 O2 Sat by Pulse 96 Oximetry - Lab 03/28/19 03:46 03/28/19 03:46 Most recent lab results Calcium 9.2 mg/dL (8.4-10.2) 03/27/19 11:27 Medications & Allergies - Medications Allergies/Adverse Reactions: Allergies No Known Allergies Allergy (Unverified 10/09/15 20:10) Home Medications: Home Medications Medication Instructions Recorded Confirmed Last Taken Type Gabapentin [Neurontin] 300 mg PO BID PRN 08/20/13 03/24/19 10/09/15 History Aspirin [Aspirin BABY CHEW TAB] 81 mg PO QDAY 08/21/15 03/24/19 03/23/19 08:00 History Carvedilol [Coreg] 6.25 mg PO BID 10/09/15 03/24/19 10/09/15 History ALBUTEROL Inhaler (OR & NICU) 2 puff IH QID PRN 03/24/19 03/24/19 Unknown History [Proair] Aluminum Hydroxide [Amphojel] 320 mg PO BID 03/24/19 03/24/19 Unknown History AtorvaSTATin [Lipitor] 10 mg PO QHS 03/24/19 03/24/19 Unknown History Calcitriol [Rocaltrol] 0.5 mcg PO DAILY 03/24/19 03/24/19 Unknown History Calcium Acetate 1,334 mg PO TID 03/24/19 03/25/19 Unknown History Clopidogrel [Plavix] 75 mg PO QDAY 03/24/19 03/25/19 Unknown History Dorzolamide/Timolol/Pf 1 each OP BID 03/24/19 03/25/19 Unknown History [Dorzolamide-Timolol 2%-0.5%] Hydralazine HCl 50 mg PO BID 03/24/19 03/25/19 Unknown History Omeprazole 40 mg PO DAILY 03/24/19 03/25/19 Unknown History Travoprost [Travatan Z] 5 ml OP QHS 03/24/19 03/25/19 Unknown History tiZANidine [Zanaflex 4mg TAB] 4 mg PO QHS 03/24/19 03/25/19 Unknown History Active Medications: Generic Name Dose Route Start Last Admin Trade Name Freq PRN Reason Stop Dose Admin Acetaminophen 650 mg 03/24/19 20:48 Tylenol PO Q4H PRN Pain MILD(1-3)/Fever >100.5/MCDANIEL Albuterol 2.5 mg 03/25/19 03:51 Proventil IH QIDRT PRN Shortness Of Breath Aspirin 81 mg 03/25/19 10:00 03/27/19 09:46 Baby Aspirin PO Not Given QDAY [facility] Atorvastatin Calcium 10 mg 03/25/19 22:00 03/26/19 21:49 Lipitor PO 10 mg QHS [facility] Administration Calcitriol 0.5 mcg 03/25/19 10:00 03/27/19 09:46 Rocaltrol PO Not Given DAILY [facility] Calcium Acetate 1,334 mg 03/25/19 08:00 03/27/19 07:32 Phoslo PO Not Given TIDWM [facility] Carvedilol 6.25 mg 03/24/19 22:00 03/27/19 09:46 Coreg PO Not Given BID [facility] Fentanyl 50 mcg 03/27/19 12:00 Sublimaze IV 03/27/19 18:00 Q5MIN PRN Pain , Severe (7-10) Gabapentin 300 mg 03/24/19 23:30 03/27/19 07:32 Neurontin PO Not Given TID [facility] Hydralazine HCl 50 mg 03/25/19 10:00 03/27/19 09:46 Apresoline PO Not Given BID [facility] Hydromorphone HCl 0.5 mg 03/24/19 20:48 Dilaudid IV Q3H PRN Pain , Severe (7-10) Sodium Chloride 100 mls @ 999 mls/hr 03/26/19 10:00 Nacl 0.9% IV GREY PRN Hypotension Sodium Chloride 1,000 mls @ 42 mls/hr 03/27/19 12:00 Nacl 0.9% 1000 Ml IV DIRECT [facility] Latanoprost 1 drops 03/25/19 22:00 03/26/19 21:49 Latanoprost 0.005% OU 1 drops QHS [facility] Administration Metoclopramide HCl 5 mg 03/24/19 20:48 Reglan IV Q6H PRN Nausea And Vomiting Miscellaneous Medication 1 each 03/25/19 10:00 Dorzolamide/Timolol/Pf [Dorzolamide-Timolol 2%-0.5%] OP BID [facility] Ondansetron HCl 4 mg 03/24/19 20:48 03/25/19 09:58 Zofran IV 4 mg Q8H PRN Administration Nausea And Vomiting Oxycodone/Acetaminophen 1 tab 03/25/19 07:00 Percocet 5/325 PO Q6H PRN Pain (4-6) Sodium Chloride 10 ml 03/24/19 22:00 03/27/19 09:58 Sodium Chloride Flush Syringe 10 Ml IV 10 ml BID [facility] Administration Sodium Chloride 10 ml 03/24/19 20:48 Sodium Chloride Flush Syringe 10 Ml IV PRN PRN LINE FLUSH
--- NOTE | 2019-03-27 15:22 | Post Operative Note ---
Date of procedure: 03/27/19 Pre-op diagnosis: malfunctioning peritoneal dialysis catheter Post-op diagnosis: same Findings: complete removal of peritoneal dialysis catheter in 3 pieces Procedure: removal of peritoneal dialysis catheter Anesthesia: RACHA, local Surgeon: SUGAR BEAR Community Living Coach: MOMO MARSHALL Estimated blood loss: other (200cc) Pathology: list (peritoneal dialysis catheter - 3 parts) Specimen disposition: to lab Condition: stable Disposition: PACU
--- NOTE | 2019-03-27 17:25 | Progress Note ---
Assessment and Plan Assessment and plan: Patient is a 59 yo woman with a history of ESRD on HD, diastolic CHF, CVA, CAD with shents, hypertension, prior IDDM, hypertension, dyslipidemia and peripheral neuropathy who presented with chest pains. Chest pains, suspected costochondritis: negative stress but EF 42%, normal EF 50-55% on prior ECHO Acute Systolic heart failure with new Cardiomyopathy and h/o chronic diastolic heart failure: consult Cardiology, input noted ESRD on HD: Nephrology consulted, needing HD PD catheter malfunction, pt cut it and PHH clamped it was scissors: to be removed tomorrow Diarrhea: Ordered Imodium x 1, helped Non onset nonischemic Cardiomyopathy: medical management per Cardiology Pancytopenia: consult Dr. Byrne, input noted, not new, needs bone marrow biopsy, I called PCP, to follow up outpatient h/o Seizures but patient taken off keppra by pcp h/o CVA Disposition: continue inpatient care, evaluate the pancytopenia, await Heme/Onc recommendation, repeat CBC, remove PD catheter tomorrow and Anticipate discharge soon after d/w her PCP from [phone] Freed, we went over her med list. Patient has admitted in the past of giving her medication to her brother. Home health went into the home and wasn't comfortable with that situation. It appears she shares medication with different family members History Interval history: Patient was seen and examined. Follow-up on current diagnosis CP. No overnight events reported to me. Patient denies any chest pain, shortness breath, nausea/vomiting or severe headaches. Imaging, nursing note, chart, labs and old chart reviewed. Discussed with patient. She c/o diarrhea resolved Hospitalist Physical - Physical exam Narrative exam: Gen: thin frail, chronic disable appearing, NAD, Awake, Alert, Orientated HEENT: NCAT, EOMI, PERRL, OP Clear Neck: supple, no adenopathy, no thyromegaly, no JVD CVS/Heart: RRR, normal S1S2, pulses present bilaterally Chest/Lungs: CTA B, Symmetrical chest expansion, good air entry bilaterally GI/Abdomen: soft, NTND, good bowel sounds, no guarding or rebound /Bladder: no suprapubic tenderness, no CVA or paraspinal tenderness Extermity/Skin: no c/c/e, no obvious rash MSK: FROM x 4 Neuro: CN 2-12 grossly intact, no new focal deficits Psych: calm - Constitutional Vitals: Temp Pulse Resp BP Pulse Ox 97.4 F L 73 13 160/71 100 03/27/19 15:29 03/27/19 16:00 03/27/19 16:00 03/27/19 16:00 03/27/19 16:00 General appearance: Present: no acute distress Results - Labs CBC & Chem 7: 03/27/19 04:10 03/27/19 11:27 Labs: Laboratory Last Values WBC 2.1 K/mm3 (4.5-11.0) L 03/27/19 04:10 RBC 3.03 M/mm3 (3.65-5.03) L 03/27/19 04:10 Hgb 9.1 gm/dl (10.1-14.3) L 03/27/19 04:10 POC Hgb 8.5 (12-17) L 03/27/19 12:23 Hct 28.2 % (30.3-42.9) L 03/27/19 04:10 POC Hct 25 (38-51) L 03/27/19 12:23 MCV 93 fl (79-97) 03/27/19 04:10 MCH 30 pg (28-32) 03/27/19 04:10 MCHC 32 % (30-34) 03/27/19 04:10 RDW 15.5 % (13.2-15.2) H 03/27/19 04:10 Plt Count 100 K/mm3 (140-440) L 03/27/19 04:10 Lymph % (Auto) 8.9 % (13.4-35.0) L 03/24/19 13:04 [place] % (Auto) 7.6 % (0.0-7.3) H 03/24/19 13:04 Eos % (Auto) 1.4 % (0.0-4.3) 03/24/19 13:04 Baso % (Auto) 0.3 % (0.0-1.8) 03/24/19 13:04 Lymph # 0.3 K/mm3 (1.2-5.4) L 03/24/19 13:04 [place] # 0.3 K/mm3 (0.0-0.8) 03/24/19 13:04 Eos # 0.0 K/mm3 (0.0-0.4) 03/24/19 13:04 Baso # 0.0 K/mm3 (0.0-0.1) 03/24/19 13:04 Add Manual Diff Complete 03/25/19 04:59 Total Counted 100 03/25/19 04:59 Seg Neutrophils % 81.8 % (40.0-70.0) H 03/24/19 13:04 Seg Neuts % (Manual) 76.0 % (40.0-70.0) H 03/25/19 04:59 0 % 03/25/19 04:59 16.0 % (13.4-35.0) 03/25/19 04:59 Reactive Lymphs % (Man) 0 % 03/25/19 04:59 4.0 % (0.0-7.3) 03/25/19 04:59 3.0 % (0.0-4.3) 03/25/19 04:59 0 % (0.0-1.8) 03/25/19 04:59 1.0 % 03/25/19 04:59 0 % 03/25/19 04:59 0 % 03/25/19 04:59 0 % 03/25/19 04:59 Nucleated RBC % Not Reportable 03/25/19 04:59 Seg Neutrophils # 2.7 K/mm3 (1.8-7.7) 03/24/19 13:04 Seg Neutrophils # Man 1.4 K/mm3 (1.8-7.7) L 03/25/19 04:59 Band Neutrophils # 0.0 K/mm3 03/25/19 04:59 0.3 K/mm3 (1.2-5.4) L 03/25/19 04:59 Abs React Lymphs (Man) 0.0 K/mm3 03/25/19 04:59 0.1 K/mm3 (0.0-0.8) 03/25/19 04:59 0.1 K/mm3 (0.0-0.4) 03/25/19 04:59 0.0 K/mm3 (0.0-0.1) 03/25/19 04:59 0.0 K/mm3 03/25/19 04:59 0.0 K/mm3 03/25/19 04:59 0.0 K/mm3 03/25/19 04:59 Blast Cells # 0.0 K/mm3 03/25/19 04:59 WBC Morphology Not Reportable 03/25/19 04:59 Hypersegmented Neuts Not Reportable 03/25/19 04:59 Hyposegmented Neuts Not Reportable 03/25/19 04:59 Hypogranular Neuts Not Reportable 03/25/19 04:59 Not Reportable 03/25/19 04:59 Not Reportable 03/25/19 04:59 Not Reportable 03/25/19 04:59 Not Reportable 03/25/19 04:59 Not Reportable 03/25/19 04:59 Not Reportable 03/25/19 04:59 Consistent w auto 03/25/19 04:59 Not Reportable 03/25/19 04:59 Plt Clumps, EDTA Not Reportable 03/25/19 04:59 Not Reportable 03/25/19 04:59 Not Reportable 03/25/19 04:59 Not Reportable 03/25/19 04:59 Plt Morphology Comment Not Reportable 03/25/19 04:59 RBC Morphology Not Reportable 03/25/19 04:59 Dimorphic RBCs Not Reportable 03/25/19 04:59 Not Reportable 03/25/19 04:59 Not Reportable 03/25/19 04:59 Not Reportable 03/25/19 04:59 Few 03/25/19 04:59 Not Reportable 03/25/19 04:59 Not Reportable 03/25/19 04:59 Not Reportable 03/25/19 04:59 Not Reportable 03/25/19 04:59 Not Reportable 03/25/19 04:59 Not Reportable 03/25/19 04:59 Not Reportable 03/25/19 04:59 Few 03/25/19 04:59 Not Reportable 03/25/19 04:59 Not Reportable 03/25/19 04:59 Not Reportable 03/25/19 04:59 Not Reportable 03/25/19 04:59 Not Reportable 03/25/19 04:59 Not Reportable 03/25/19 04:59 Not Reportable 03/25/19 04:59 Acanthocytes (Spur) Not Reportable 03/25/19 04:59 Rouleaux Not Reportable 03/25/19 04:59 Not Reportable 03/25/19 04:59 Not Reportable 03/25/19 04:59 Not Reportable 03/25/19 04:59 Not Reportable 03/25/19 04:59 Hem Pathologist Commnt No 03/25/19 04:59 PT 13.9 Sec. (12.2-14.9) 03/27/19 04:10 INR 1.10 (0.87-1.13) 03/27/19 04:10 APTT 29.0 Sec. (24.2-36.6) 03/25/19 00:15 POC Sodium 141 mmol/L (138-146) 03/27/19 12:23 POC Potassium 4.7 (3.5-4.9) 03/27/19 12:23 POC Chloride 101 (98-109) 03/27/19 12:23 Sodium 142 mmol/L (137-145) 03/27/19 11:27 Potassium 5.0 mmol/L (3.6-5.0) 03/27/19 11:27 Chloride 101.1 mmol/L (98-107) 03/27/19 11:27 Carbon Dioxide 30 mmol/L (22-30) 03/27/19 11:27 16 mmol/L 03/27/19 11:27 POC BUN 33 mg/dl (8-26) H 03/27/19 12:23 BUN 32 mg/dL (7-17) H 03/27/19 11:27 6.1 mg/dL (0.7-1.2) H 03/27/19 11:27 Estimated GFR 8 ml/min 03/27/19 11:27 5 % 03/27/19 11:27 Glucose 83 mg/dL (65-100) 03/27/19 11:27 POC Glucose 89 (70-105) 03/27/19 16:48 4.5 % (4-6) 03/24/19 13:04 Calcium 9.2 mg/dL (8.4-10.2) 03/27/19 11:27 Iron 57 ug/dL (37-170) 03/27/19 04:10 TIBC 210 mcg/dL (250-450) L 03/27/19 04:10 1084.0 ng/mL (13.0-400.0) H 03/27/19 04:10 0.30 mg/dL (0.1-1.2) 03/25/19 04:59 AST 11 units/L (5-40) 03/25/19 04:59 ALT 9 units/L (7-56) 03/25/19 04:59 109 units/L (35-129) 03/25/19 04:59 0.150 ng/mL (0.00-0.029) H* 03/25/19 04:59 NT-Pro-B Natriuret Pep > 53556 pg/mL (0-900) H 03/24/19 13:04 5.6 g/dL (6.3-8.2) L 03/25/19 04:59 3.1 g/dL (3.9-5) L 03/25/19 04:59 1.2 % 03/25/19 04:59 Triglycerides 112 mg/dL (2-149) 03/24/19 13:04 Cholesterol 128 mg/dL (50-199) 03/24/19 13:04 68 mg/dL (50-130) 03/24/19 13:04 53 mg/dL (40-59) 03/24/19 13:04 2.41 % 03/24/19 13:04 Vitamin B12 2000 pg/mL (211-911) H 03/27/19 04:10 3.82 ng/mL (7.3-26.0) L 03/27/19 04:10 Hepatitis A IgM Ab Non-reactive (NonReactive) 03/25/19 17:55 Hep Bs Antigen Non-reactive (Negative) 03/25/19 17:55 Hep B Core IgM Ab Non-reactive (NonReactive) 03/25/19 17:55 Non-reactive (NonReactive) 03/25/19 17:55 Blood Type O POSITIVE 03/27/19 04:10 Antibody Screen Negative 03/27/19 04:10 Active Medications - Current Medications Current Medications: Generic Name Dose Route Start Last Admin Trade Name Freq PRN Reason Stop Dose Admin Acetaminophen 650 mg 03/24/19 20:48 Tylenol PO Q4H PRN Pain MILD(1-3)/Fever >100.5/MCDANIEL Albuterol 2.5 mg 03/25/19 03:51 Proventil IH QIDRT PRN Shortness Of Breath Aspirin 81 mg 03/25/19 10:00 03/27/19 09:46 Baby Aspirin PO Not Given QDAY [facility] Atorvastatin Calcium 10 mg 03/25/19 22:00 03/26/19 21:49 Lipitor PO 10 mg QHS [facility] Administration Calcitriol 0.5 mcg 03/25/19 10:00 03/27/19 09:46 Rocaltrol PO Not Given DAILY [facility] Calcium Acetate 1,334 mg 03/25/19 08:00 03/27/19 16:46 Phoslo PO Not Given TIDWM [facility] Carvedilol 6.25 mg 03/24/19 22:00 03/27/19 09:46 Coreg PO Not Given BID [facility] Fentanyl 50 mcg 03/27/19 12:00 Sublimaze IV 03/27/19 18:00 Q5MIN PRN Pain , Severe (7-10) Gabapentin 300 mg 03/24/19 23:30 03/27/19 16:47 Neurontin PO Not Given TID [facility] Hydralazine HCl 50 mg 03/25/19 10:00 03/27/19 09:46 Apresoline PO Not Given BID [facility] Hydromorphone HCl 0.5 mg 03/24/19 20:48 Dilaudid IV Q3H PRN Pain , Severe (7-10) Sodium Chloride 100 mls @ 999 mls/hr 03/26/19 10:00 Nacl 0.9% IV GREY PRN Hypotension Sodium Chloride 1,000 mls @ 42 mls/hr 03/27/19 12:00 03/27/19 12:17 Nacl 0.9% 1000 Ml IV 42 mls/hr DIRECT [facility] Administration Latanoprost 1 drops 03/25/19 22:00 03/26/19 21:49 Latanoprost 0.005% OU 1 drops QHS [facility] Administration Metoclopramide HCl 5 mg 03/24/19 20:48 Reglan IV Q6H PRN Nausea And Vomiting Miscellaneous Medication 1 each 03/25/19 10:00 Dorzolamide/Timolol/Pf [Dorzolamide-Timolol 2%-0.5%] OP BID [facility] Ondansetron HCl 4 mg 03/24/19 20:48 03/25/19 09:58 Zofran IV 4 mg Q8H PRN Administration Nausea And Vomiting Oxycodone/Acetaminophen 1 tab 03/25/19 07:00 Percocet 5/325 PO Q6H PRN Pain (4-6) Sodium Chloride 10 ml 03/24/19 22:00 03/27/19 09:58 Sodium Chloride Flush Syringe 10 Ml IV 10 ml BID [facility] Administration Sodium Chloride 10 ml 03/24/19 20:48 Sodium Chloride Flush Syringe 10 Ml IV PRN PRN LINE FLUSH
--- NOTE | 2019-03-27 17:36 | Operative Report ---
PREOPERATIVE DIAGNOSIS: Malfunctioning peritoneal dialysis catheter. POSTOPERATIVE DIAGNOSIS: Malfunctioning peritoneal dialysis catheter. FINDINGS: Complete removal of peritoneal dialysis catheter in 3 pieces. PROCEDURE: Removal of peritoneal dialysis catheter. ANESTHESIA: LMA and local. SURGEON: Tete Suárez DO. CUE WORKER: Jorge Rodriguez MD ESTIMATED BLOOD LOSS: 200 mL. PATHOLOGY: Peritoneal dialysis catheter 3 parts. SPECIMEN DISPOSITION: To lab. CONDITION ON DISPOSITION: The patient is stable to PACU. HISTORY OF PRESENT ILLNESS AND INDICATION: The patient is a 59-year-old female who has end-stage renal disease, previously on peritoneal dialysis. The patient was switched over to hemodialysis via a fistula and therefore is no longer using her PD catheter. Upon trying to redress the area and remove some Steri-Strips, the patient accidentally cut the PD catheter near the skin and since then it has been clamped. She was admitted to the hospital with fluid overload and chest pain and has been worked up for this and treated for it appropriately. She had a stress test, which was negative and showed an EF of 42%. Surgery was consulted for removal of the peritoneal dialysis catheter once the patient was medically optimized and stable. The risk was deemed acceptable to proceed with removal of PD catheter. All risks, benefits, and alternatives of surgery were discussed with the patient. Consent obtained. PROCEDURE IN DETAIL: The patient was identified in preoperative area and taken back to the operating room and placed on the operating table in supine position. After anesthesia was induced, the abdomen was prepped and draped in the usual sterile fashion. A timeout was performed. The peritoneal dialysis catheter was prepped into our field with Betadine. After timeout was performed, a hemostat was applied to the catheter that was coming out of the skin and it was cut in order to remove the clamp from the field. A local anesthetic was infiltrated into the skin and subcutaneous tissue at the intended incision site just below the umbilicus where the peritoneal cuff was. An incision was made at this area using a 15 blade through which dissection was carried down through the skin and subcutaneous tissue using Bovie electrocautery. Once the tissue was cleared away from the catheter, it was followed down to the subcutaneous cuff. This was freed from the surrounding tissue using electrocautery. Two clamps were placed on the catheter and the catheter cut in between. The catheter that was coming out of the skin was then removed completely and passed off the table as a specimen. The peritoneal cuff was then slowly and meticulously dissected from the surrounding tissue and the remainder of the intraabdominal portion of the catheter was then removed completely and passed off table as specimen. Upon removing the entire catheter, there was bleeding from inside the wound. A very thorough inspection revealed that the bleeding was coming from below the fascia from the muscle. Therefore, the incision was extended by approximately 4 cm and the fascia opened in order to better visualize the bleeding. At first attempts were made to use Surgicel and pressure to control the bleeding because 1 specific location could not be identified; however, this did not completely stop the bleeding. Therefore, a meticulous search was carried on to find the source of bleeding, which was found to be a vein located running along the muscle fibers. This was grasped with a right angle and ligated using a 2-0 Vicryl suture LigaSure. The bleeding had completely stopped. The wound was irrigated until the irrigant returned clear. Fibrillar was placed over top of the muscle and the fascia closed over this using a running 0 Vicryl stitch. The subcutaneous tissue was irrigated and the irrigant returned clear. There was no bleeding seen in subcutaneous tissue or skin. Fibrillar was placed above the fascia as well. The skin was then closed in a layered fashion with the deep dermal layer closed with interrupted 3-0 Vicryl sutures and the skin closed with 4-0 Monocryl subcuticular running stitch and skin glue. The catheter exit site in the skin in the left lower quadrant was covered with 4 x 4 gauze and a Tegaderm. At the end of the case, all sponge, instrument, sharp counts were correct x 2. The patient remained stable for the entire procedure. The patient was taken to the PACU in stable condition. JOB# [id number] VERONICA/SHANNAN
--- NOTE | 2019-03-27 18:06 | Post Anesthesia Evaluation ---
- Post Anesthesia Evaluation Patient Participated: Yes Airway Patent: Yes Stable Respiratory Function: Yes Nausea/Vomiting: No Temp > 96.8F: Yes Pain Manageable: Yes Adequeate Hydration: Yes Anesthesia Complications: No
[2019-03-27] MEDS: LATANOPROST 0.005% OU SCH (21:04)
--- NOTE | 2019-03-27 23:41 | Progress Note ---
Assessment and Plan Chest pain, atypical MPI done this admission reports no ischemia with an ejection fraction of 42%. Pancytopenia ESRD on previously on peritoneal dialysis but now on hemodialysis Broken PD catheter Hx of CAD Hypertension Recommend: Continue other recommended therapies for her coronary disease. No further cardiac recommendations at this time. Thank you for the consult. Please re-consult as needed. Subjective Date of service: 03/28/19 Interval history: No acute events. Resting comfortably. No chest pain or SOB. Objective Vital Signs Temp Pulse Resp BP Pulse Ox 03/27/19 22:00 18 03/27/19 20:11 97.9 F 78 16 116/55 100 03/27/19 16:36 72 15 125/51 100 03/27/19 16:00 73 13 160/71 100 03/27/19 15:50 73 12 164/67 100 03/27/19 15:45 75 13 159/68 100 03/27/19 15:40 74 12 157/68 100 03/27/19 15:35 75 14 164/70 100 03/27/19 15:29 97.4 F L 76 16 157/64 100 03/27/19 12:20 97.3 F L 79 18 148/67 96 03/27/19 11:56 97.3 F L 79 18 148/67 96 03/27/19 10:00 75 03/27/19 07:58 18 100 03/27/19 07:19 98.4 F 79 16 134/57 96 03/27/19 04:37 98.3 F 03/27/19 04:36 82 18 118/89 98 - Physical Examination General: No Apparent Distress HEENT: Positive: PERRL Neck: Positive: trachea midline Neuro: Positive: Grossly Intact Extremities: Absent: edema - Labs and Meds Coagulation 03/27/19 Range/Units 04:10 PT 13.9 (12.2-14.9) Sec. INR 1.10 (0.87-1.13) CBC 03/27/19 Range/Units 04:10 WBC 2.1 L (4.5-11.0) K/mm3 RBC 3.03 L (3.65-5.03) M/mm3 Hgb 9.1 L (10.1-14.3) gm/dl Hct 28.2 L (30.3-42.9) % Plt Count 100 L (140-440) K/mm3 Comprehensive Metabolic Panel 03/27/19 Range/Units 11:27 Sodium 142 (137-145) mmol/L Potassium 5.0 (3.6-5.0) mmol/L Chloride 101.1 (98-107) mmol/L Carbon Dioxide 30 (22-30) mmol/L BUN 32 H (7-17) mg/dL Creatinine 6.1 H (0.7-1.2) mg/dL Glucose 83 (65-100) mg/dL Calcium 9.2 (8.4-10.2) mg/dL
[2019-03-28 05:13] LABS: Hematocrit 23.6 % (30.3-42.9); Hemoglobin 7.5 gm/dl (10.1-14.3); Mean Corpuscular HGB Conc 32 % (30-34); Mean Corpuscular Volume 94 fl (79-97); Red Blood Count 2.51 M/mm3 (3.65-5.03); Red Cell Distribution Width 15.3 % (13.2-15.2)
[2019-03-28 05:27] LABS: Calcium 8.9 mg/dL (8.4-10.2); Platelet Count 97 K/mm3 (140-440)
[2019-03-28] MEDS ORDERED: NACL 0.9% 100 ML IV PRN (06:32)
[2019-03-28] MEDS: PHOSLO PO SCH ×3 (08:00→17:00)
[2019-03-28] MEDS: NEURONTIN PO SCH ×2 (08:00→14:00)
[2019-03-28] MEDS: SODIUM CHLORIDE FLUSH SYRINGE 10 ML IV SCH (10:00)
[2019-03-28] MEDS: APRESOLINE PO SCH (10:19)
[2019-03-28] MEDS: BABY ASPIRIN PO SCH (10:19)
[2019-03-28] MEDS: COREG PO SCH (10:19)
[2019-03-28] MEDS: ROCALTROL PO SCH (10:20)
--- NOTE | 2019-03-28 13:50 | Progress Note ---
Assessment and Plan Impression: * End stage renal disease on hemodialysis * Pulmonary edema * Chest pain * Malfunctioning PD catheter s/p removal * Anemia secondary to ESRD * Secondary hyperPTH Plan: * Will plan for HD today - UF as tolerated * Resume MWF schedule next week * Cardiology recommendations reviewed * Dose medications for renal function * Epogen TIW prn * Renal diet Subjective Date of service: 03/28/19 Interval history: Patient reports abdominal tenderness s/p PD catheter removal. Otherwise, she has no complaints. Breathing is better. Objective - Vital Signs Vital signs: Vital Signs - 12hr 03/28/19 03/28/19 03/28/19 03:59 04:03 07:59 Temperature 98.9 F 99.5 F 98.1 F Pulse Rate 75 106 H 78 Respiratory 16 16 16 Rate Blood Pressure 124/59 112/73 130/62 O2 Sat by Pulse 100 100 92 Oximetry 03/28/19 03/28/19 03/28/19 10:00 12:26 12:51 Temperature 98.0 F Pulse Rate 74 79 Respiratory 20 16 20 Rate Blood Pressure 144/63 O2 Sat by Pulse 99 Oximetry - General Appearance General appearance: well-developed, well-nourished EENT: ATNC Neck: supple Respiratory: Present: Clear to Ascultation Cardiology: regular, S1S2 Gastrointestinal: no distended Integumentary: no rash Neurologic: no focal deficit, alert and oriented x3 Psychiatric: cooperative - Lab 03/28/19 03:46 03/28/19 03:46 Most recent lab results Calcium 8.9 mg/dL (8.4-10.2) 03/28/19 03:46 Medications & Allergies - Medications Allergies/Adverse Reactions: Allergies No Known Allergies Allergy (Unverified 10/09/15 20:10) Home Medications: Home Medications Medication Instructions Recorded Confirmed Last Taken Type Gabapentin [Neurontin] 300 mg PO BID PRN 08/20/13 03/24/19 10/09/15 History Aspirin [Aspirin BABY CHEW TAB] 81 mg PO QDAY 08/21/15 03/24/19 03/23/19 08:00 History Carvedilol [Coreg] 6.25 mg PO BID 10/09/15 03/24/19 10/09/15 History ALBUTEROL Inhaler (OR & NICU) 2 puff IH QID PRN 03/24/19 03/24/19 Unknown History [Proair] Aluminum Hydroxide [Amphojel] 320 mg PO BID 03/24/19 03/24/19 Unknown History AtorvaSTATin [Lipitor] 10 mg PO QHS 03/24/19 03/24/19 Unknown History Calcitriol [Rocaltrol] 0.5 mcg PO DAILY 03/24/19 03/24/19 Unknown History Calcium Acetate 1,334 mg PO TID 03/24/19 03/25/19 Unknown History Clopidogrel [Plavix] 75 mg PO QDAY 03/24/19 03/25/19 Unknown History Dorzolamide/Timolol/Pf 1 each OP BID 03/24/19 03/25/19 Unknown History [Dorzolamide-Timolol 2%-0.5%] Hydralazine HCl 50 mg PO BID 03/24/19 03/25/19 Unknown History Omeprazole 40 mg PO DAILY 03/24/19 03/25/19 Unknown History Travoprost [Travatan Z] 5 ml OP QHS 03/24/19 03/25/19 Unknown History tiZANidine [Zanaflex 4mg TAB] 4 mg PO QHS 03/24/19 03/25/19 Unknown History Active Medications: Generic Name Dose Route Start Last Admin Trade Name Freq PRN Reason Stop Dose Admin Acetaminophen 650 mg 03/24/19 20:48 Tylenol PO Q4H PRN Pain MILD(1-3)/Fever >100.5/MCDANIEL Albuterol 2.5 mg 03/25/19 03:51 Proventil IH QIDRT PRN Shortness Of Breath Aspirin 81 mg 03/25/19 10:00 03/28/19 10:19 Baby Aspirin PO Not Given QDAY LENCHO Atorvastatin Calcium 10 mg 03/25/19 22:00 03/27/19 21:03 Lipitor PO 10 mg QHS LENCHO Administration Calcitriol 0.5 mcg 03/25/19 10:00 03/28/19 10:20 Rocaltrol PO Not Given DAILY [facility] Calcium Acetate 1,334 mg 03/25/19 08:00 03/28/19 12:52 Phoslo PO Not Given TIDWM [facility] Carvedilol 6.25 mg 03/24/19 22:00 03/28/19 10:19 Coreg PO Not Given BID [facility] Gabapentin 300 mg 03/24/19 23:30 03/28/19 08:00 Neurontin PO Not Given TID LENCHO Hydralazine HCl 50 mg 03/25/19 10:00 03/28/19 10:19 Apresoline PO Not Given BID LENCHO Hydromorphone HCl 0.5 mg 03/24/19 20:48 Dilaudid IV Q3H PRN Pain , Severe (7-10) Sodium Chloride 100 mls @ 999 mls/hr 03/26/19 10:00 Nacl 0.9% IV GREY PRN Hypotension Sodium Chloride 1,000 mls @ 42 mls/hr 03/27/19 12:00 03/27/19 12:17 Nacl 0.9% 1000 Ml IV 42 mls/hr DIRECT LENCHO Administration Latanoprost 1 drops 03/25/19 22:00 03/27/19 21:04 Latanoprost 0.005% OU 1 drops QHS LENCHO Administration Metoclopramide HCl 5 mg 03/24/19 20:48 Reglan IV Q6H PRN Nausea And Vomiting Miscellaneous Medication 1 each 03/25/19 10:00 Dorzolamide/Timolol/Pf [Dorzolamide-Timolol 2%-0.5%] OP BID LENCHO Ondansetron HCl 4 mg 03/24/19 20:48 03/25/19 09:58 Zofran IV 4 mg Q8H PRN Administration Nausea And Vomiting Oxycodone/Acetaminophen 1 tab 03/25/19 07:00 03/28/19 12:51 Percocet 5/325 PO 1 tab Q6H PRN Administration Pain (4-6) Sodium Chloride 10 ml 03/24/19 22:00 03/28/19 10:00 Sodium Chloride Flush Syringe 10 Ml IV 10 ml BID LENCHO Administration Sodium Chloride 10 ml 03/24/19 20:48 Sodium Chloride Flush Syringe 10 Ml IV PRN PRN LINE FLUSH
--- NOTE | 2019-03-28 15:37 | Discharge Summary ---
Providers - Providers Date of Admission: 03/25/19 14:15 Date of discharge: 03/28/19 Attending physician: CONSTANCE RIVERA 03/24/19 20:51 Consult to Physician [CONS] Routine Comment: Consulting Provider: SUZAN LOGAN Physician Instructions: Reason For Exam: esrd 03/25/19 14:42 Consult to Physician [CONS] Routine Comment: Consulting Provider: KAMALJIT BYRNE Physician Instructions: Reason For Exam: pancytopenia 03/25/19 16:01 Consult to Physician [CONS] Routine Comment: Consulting Provider: ADRIANNE DIAMOND Physician Instructions: Reason For Exam: new CMP? Can we stop plavix to remove PD cath? 03/25/19 16:09 Consult to Physician [CONS] Routine Comment: Consulting Provider: SUGAR BEAR Physician Instructions: Reason For Exam: PD Catheter removal Hospitalization Condition: Stable Hospital course: Patient is a 59 yo woman with a history of ESRD on HD, diastolic CHF, CVA, CAD with shents, hypertension, prior IDDM, hypertension, dyslipidemia and peripheral neuropathy who presented with chest pains. Chest pains, suspected costochondritis: negative stress but EF 42%, normal EF 50-55% on prior ECHO Acute Systolic heart failure with new Cardiomyopathy and h/o chronic diastolic heart failure: consult Cardiology, input noted ESRD on HD: Nephrology consulted, needing HD PD catheter malfunction, s/p Removal 03/27/19 Diarrhea: Ordered Imodium x 1, helped Non onset nonischemic Cardiomyopathy: medical management per Cardiology Pancytopenia: consult Dr. Byrne, input noted, not new, needs bone marrow biopsy, I called PCP, and pt can walk-in on Saturday between 7-10am h/o Seizures but patient taken off keppra by pcp h/o CVA Disposition: home d/w [phone] [address], we went over her med list. Patient has admitted in the past of giving her medication to her brother. Home health went into the home and wasn't comfortable with that situation. It appears she shares medication with different family members Bone Marrow biopsy to be set up thru PCP Disposition: TO HOME OR SELFCARE Time spent for discharge: 35 minutes Core Measure Documentation - Palliative Care Palliative Care/ Comfort Measures: Not Applicable - Core Measures Any of the following diagnoses?: none - VTE Discharge Requirements Deep Vein Thrombosis/Pulmonary Embolism Present on Admission: No Has pt received <5 days of overlap therapy or INR<2.0: No Anticoagulant overlap therapy prescribed at discharge: No Contraindication No Overlap Therapy order at DC: Not Indicated Exam - Physical Exam Narrative exam: Gen: thin frail, chronic disable appearing, NAD, Awake, Alert, Orientated HEENT: NCAT, EOMI, PERRL, OP Clear Neck: supple, no adenopathy, no thyromegaly, no JVD CVS/Heart: RRR, normal S1S2, pulses present bilaterally Chest/Lungs: CTA B, Symmetrical chest expansion, good air entry bilaterally GI/Abdomen: soft, NTND, good bowel sounds, no guarding or rebound /Bladder: no suprapubic tenderness, no CVA or paraspinal tenderness Extermity/Skin: no c/c/e, no obvious rash MSK: FROM x 4 Neuro: CN 2-12 grossly intact, no new focal deficits Psych: calm - Constitutional Vitals: Temp Pulse Resp BP Pulse Ox 98.4 F 80 18 121/63 99 03/28/19 13:40 03/28/19 14:30 03/28/19 13:40 03/28/19 14:30 03/28/19 12:26 Plan Activity: other (no strenous activities) Diet: low salt Follow up with: JACQUES SAPP [Other] - 3-5 Days Prescriptions: oxyCODONE /ACETAMINOPHEN [Percocet 5/325 mg] 1 tab PO Q6H PRN #15 tablet PRN Reason: Pain , Severe (7-10)
[2019-03-28 17:23] VITALS: BP 163/66
== END 2019-03-28 19:29 | disposition home or self-care (01) | DRG 981 ==
LOC: ED 11:59 → 4A 16:28 → INTOOBSV 16:28 → 4A 18:14 → OBSVTOIN 03-25 14:15
PROVIDERS: ADMIT Internal Medicine; ATTEND Internal Medicine
PROC: 5A1D70Z Performance of Urinary Filtration, Intermittent, Less than 6 Hours Per Day (ICD-10-PCS; 2019-03-25)
PROC: 5A1D70Z Performance of Urinary Filtration, Intermittent, Less than 6 Hours Per Day (ICD-10-PCS; 2019-03-26)
PROC: 0WPG03Z Removal of Infusion Device from Peritoneal Cavity, Open Approach (ICD-10-PCS; principal; 2019-03-27)
PROC: 5A1D70Z Performance of Urinary Filtration, Intermittent, Less than 6 Hours Per Day (ICD-10-PCS; 2019-03-27)
DX: T85.611A Breakdown (mechanical) of intraperitoneal dialysis catheter, initial encounter (principal); N18.6 End stage renal disease; I50.43 Acute on chronic combined systolic (congestive) and diastolic (congestive) heart failure; I13.2 Hypertensive heart and chronic kidney disease with heart failure and with stage 5 chronic kidney disease, or end stage renal disease; D61.818 Other pancytopenia; I42.8 Other cardiomyopathies; N25.81 Secondary hyperparathyroidism of renal origin; I69.354 Hemiplegia and hemiparesis following cerebral infarction affecting left non-dominant side; M94.0 Chondrocostal junction syndrome [Tietze]; J44.9 Chronic obstructive pulmonary disease, unspecified; I25.10 Atherosclerotic heart disease of native coronary artery without angina pectoris; M19.90 Unspecified osteoarthritis, unspecified site; G43.909 Migraine, unspecified, not intractable, without status migrainosus; E78.5 Hyperlipidemia, unspecified; M62.838 Other muscle spasm; Y83.8 Other surgical procedures as the cause of abnormal reaction of the patient, or of later complication, without mention of misadventure at the time of the procedure; H40.9 Unspecified glaucoma; E11.40 Type 2 diabetes mellitus with diabetic neuropathy, unspecified; E11.22 Type 2 diabetes mellitus with diabetic chronic kidney disease; D63.1 Anemia in chronic kidney disease; I27.20 Pulmonary hypertension, unspecified; D72.818 Other decreased white blood cell count; Z99.2 Dependence on renal dialysis; Z87.891 Personal history of nicotine dependence; I25.2 Old myocardial infarction; Z95.5 Presence of coronary angioplasty implant and graft; Z79.82 Long term (current) use of aspirin; Z79.899 Other long term (current) drug therapy; Z79.4 Long term (current) use of insulin; Z82.49 Family history of ischemic heart disease and other diseases of the circulatory system; Y92.89 Other specified places as the place of occurrence of the external cause
CPT/HCPCS: 36415; 71045; 76700; 78452; 80048; 80053; 80061; 80074; 82607; 82728; 82747; 82803; 82962; 83036; 83550; 83880; 84484; 85007; 85014; 85018; 85025; 85027; 85049; 85610; 85730; 86850; 86900; 86901; 88302; 93005; 93010; 93017; 94640; 96374; G0378; A9270-GY; A9502; J0690; J1644; J1815; J2250; J2405; J2704; J2785; J3010; J7030; J7512

== ENCOUNTER 2019-04-20 13:25 | Emergency (ER) | payer MEDICARE ==
[2019-04-20 14:27] LABS: Basophils % (Auto) 0.5 % (0.0-1.8); Eosinophils # (Auto) 0.1 K/mm3 (0.0-0.4); Hemoglobin 9.1 gm/dl (10.1-14.3); Lymphocytes # (Auto) 0.3 K/mm3 (1.2-5.4); Lymphocytes % (Auto) 7.6 % (13.4-35.0); Mean Corpuscular HGB Conc 32 % (30-34); Mean Corpuscular Volume 93 fl (79-97); Monocytes # (Auto) 0.4 K/mm3 (0.0-0.8); Monocytes % (Auto) 11.1 % (0.0-7.3); Red Blood Count 3.02 M/mm3 (3.65-5.03); Red Cell Distribution Width 16.4 % (13.2-15.2)
[2019-04-20 14:28] LABS: Platelet Count 93 K/mm3 (140-440)
--- NOTE | 2019-04-20 14:32 | Emergency Department Report ---
ED Chest Pain HPI - General Chief Complaint: Chest Pain Stated Complaint: CHEST PAIN N/V Time Seen by Provider: 04/20/19 14:04 Source: patient, EMS Mode of arrival: Stretcher Limitations: No Limitations - History of Present Illness Initial Comments: 59-year-old female with history of CHF, ESRD presents to ED with chest pain during dialysis. Patient states she began having sharp chest pains was in dialysis. Patient states she had 15 minutes of dialysis remaining. Patient reports chest pain lasted for approximately 20 minutes, however solved after they discontinued dialysis. Patient states this is happened multiple times during dialysis, believes she had too much fluid removed. Patient currently denies chest pain at this time. Denies any shortness of breath, nausea, vomiting, diaphoresis. MD Complaint: chest pain -: This afternoon Onset: during rest (while undergoing dialysis) Pain Location: left chest Pain Radiation: none Severity: moderate Severity scale (0 -10): 7 Quality: sharp Consistency: now resolved Improves With: nothing Worsens With: nothing re: denies: nausea, vomting, diaphoresis, dyspnea - Related Data Home Medications Medication Instructions Recorded Confirmed Last Taken Gabapentin [Neurontin] 300 mg PO BID PRN 08/20/13 04/20/19 04/20/19 Aspirin [Aspirin BABY CHEW TAB] 81 mg PO QDAY 08/21/15 04/20/19 04/20/19 Carvedilol [Coreg] 6.25 mg PO BID 10/09/15 04/20/19 04/20/19 AtorvaSTATin [Lipitor] 10 mg PO QHS 03/24/19 04/20/19 04/20/19 Calcitriol [Rocaltrol] 0.5 mcg PO DAILY 03/24/19 04/20/19 04/20/19 Calcium Acetate 1,334 mg PO TID 03/24/19 04/20/19 04/20/19 Clopidogrel [Plavix] 75 mg PO QDAY 03/24/19 04/20/19 04/20/19 Dorzolamide/Timolol/Pf 1 each OP BID 03/24/19 04/20/19 04/19/19 [Dorzolamide-Timolol 2%-0.5%] Hydralazine HCl 50 mg PO BID 03/24/19 04/20/19 04/20/19 Omeprazole 40 mg PO DAILY 08/04/20/19 04/20/19 Travoprost [Travatan Z 0.004%] 5 ml OP QHS 03/24/19 04/20/19 04/20/19 Previous Rx's Medication Instructions Recorded Last Taken Type Acetaminophen [Acetaminophen TAB] 2 tab PO Q4H PRN #15 tablet 03/28/19 04/19/19 Rx Allergies Allergy/AdvReac Type Severity Reaction Status Date / Time No Known Allergies Allergy Unverified 10/09/15 20:10 Heart Score - HEART Score History: Slightly suspicious EKG: Normal Age: 45-65 Risk factors: > 3 risk factors or hx of atherosclerotic disease Troponin: 1-3x normal limit HEART Score: 4 ED Review of Systems ROS: Stated complaint: CHEST PAIN N/V Other details as noted in HPI Comment: All other systems reviewed and negative Constitutional: denies: chills, fever Respiratory: denies: shortness of breath Cardiovascular: chest pain Gastrointestinal: denies: nausea, vomiting ED Past Medical Hx - Past Medical History Previous Medical History?: Yes Hx Hypertension: Yes Hx CVA: Yes (x4, 8 TIAs) Hx Heart Attack/AMI: Yes (2017) Hx Congestive Heart Failure: Yes Hx Diabetes: Yes Hx Liver Disease: No Hx Renal Disease: Yes Hx Arthritis: Yes Hx Headaches / Migraines: Yes Hx Seizures: Yes Hx Asthma: Yes Hx COPD: Yes (inhalers prn) Hx HIV: No - Surgical History Hx Coronary Stent: Yes (x 3) Hx Pacemaker: No Hx Internal Defibrillator: No Hx Breast Surgery: Yes (reduction (1979)) Additional Surgical History: breast reduction 1979, av fistula left arm - Social History Smoking Status: Never Smoker Substance Use Type: None - Medications Home Medications: Home Medications Medication Instructions Recorded Confirmed Last Taken Type Gabapentin [Neurontin] 300 mg PO BID PRN 08/20/13 04/20/19 04/20/19 History Aspirin [Aspirin BABY CHEW TAB] 81 mg PO QDAY 08/21/15 04/20/19 04/20/19 History Carvedilol [Coreg] 6.25 mg PO BID 10/09/15 04/20/19 04/20/19 History AtorvaSTATin [Lipitor] 10 mg PO QHS 03/24/19 04/20/19 04/20/19 History Calcitriol [Rocaltrol] 0.5 mcg PO DAILY 03/24/19 04/20/19 04/20/19 History Calcium Acetate 1,334 mg PO TID 03/24/19 04/20/19 04/20/19 History Clopidogrel [Plavix] 75 mg PO QDAY 03/24/19 04/20/19 04/20/19 History Dorzolamide/Timolol/Pf 1 each OP BID 03/24/19 04/20/19 04/19/19 History [Dorzolamide-Timolol 2%-0.5%] Hydralazine HCl 50 mg PO BID 03/24/19 04/20/19 04/20/19 History Omeprazole 40 mg PO DAILY 03/24/19 04/20/19 04/20/19 History Travoprost [Travatan Z 0.004%] 5 ml OP QHS 03/24/19 04/20/19 04/20/19 History Acetaminophen [Acetaminophen TAB] 2 tab PO Q4H PRN #15 tablet 03/28/19 04/20/19 04/19/19 Rx ED Physical Exam - General Limitations: No Limitations General appearance: alert, in no apparent distress - Head Head exam: Present: atraumatic, normocephalic - Eye Eye exam: Present: normal appearance, PERRL, EOMI - ENT ENT exam: Present: mucous membranes moist - Neck Neck exam: Present: normal inspection - Respiratory Respiratory exam: Present: normal lung sounds bilaterally. Absent: respiratory distress - Cardiovascular Cardiovascular Exam: Present: regular rate, normal rhythm - GI/Abdominal GI/Abdominal exam: Present: soft. Absent: distended, tenderness - Extremities Exam Extremities exam: Present: normal inspection - Neurological Exam Neurological exam: Present: alert, oriented X3 - Psychiatric Psychiatric exam: Present: normal affect, normal mood - Skin Skin exam: Present: warm, dry, intact, normal color ED Course Vital Signs 04/20/19 04/20/19 04/20/19 13:46 13:49 14:00 Temperature 98.1 F Pulse Rate 92 H 92 H 89 Respiratory 15 20 18 Rate Blood Pressure 169/71 Blood Pressure 169/71 [Right] O2 Sat by Pulse 100 86 Oximetry 04/20/19 04/20/19 04/20/19 14:16 14:30 14:46 Temperature Pulse Rate 89 89 89 Respiratory 18 18 19 Rate Blood Pressure 168/78 168/78 168/78 Blood Pressure [Right] O2 Sat by Pulse 86 85 Oximetry 04/20/19 04/20/19 04/20/19 15:00 15:15 15:30 Temperature Pulse Rate 86 88 85 Respiratory 15 19 17 Rate Blood Pressure 174/80 168/78 153/77 Blood Pressure [Right] O2 Sat by Pulse 99 99 93 Oximetry 04/20/19 04/20/19 04/20/19 15:45 16:00 16:15 Temperature Pulse Rate 85 89 86 Respiratory 19 20 18 Rate Blood Pressure 153/77 158/78 158/78 Blood Pressure [Right] O2 Sat by Pulse 88 92 88 Oximetry 04/20/19 04/20/19 04/20/19 16:30 16:45 17:00 Temperature Pulse Rate 86 89 88 Respiratory 18 21 18 Rate Blood Pressure 161/75 161/75 144/69 Blood Pressure [Right] O2 Sat by Pulse 91 90 93 Oximetry 04/20/19 04/20/19 04/20/19 17:15 17:30 17:45 Temperature Pulse Rate 85 84 91 H Respiratory 17 18 25 H Rate Blood Pressure 144/69 153/69 153/69 Blood Pressure [Right] O2 Sat by Pulse 90 94 95 Oximetry ED Medical Decision Making - Lab Data Result diagrams: 04/20/19 14:01 04/20/19 14:01 - EKG Data -: EKG Interpreted by Mi EKG shows normal: sinus rhythm, axis, QRS complexes, ST-T waves Rate: normal - EKG Data Interpretation: no acute changes, LVH - Radiology Data Radiology results: report reviewed, image reviewed - Medical Decision Making 59-year-old female with chest pain during dialysis. Chest pain currently resolved. EKG shows ST changes. Patient had same occurrence of chest pain last month. At that time she underwent stress testing on 03/25/19 which was normal. Troponin was elevated at that time, similar to today's levels. Troponin elevation likely due to patient's renal disease given her normal stress test last month. Patient has history of CAD with stents. States today's pain was not similar character to what she experienced when she had to have her stents placed. Since patient is pain-free, vitals are stable, and she had a normal stress test less than one month ago with discharge at this time. Patient advised to follow with her hand engraver at [facility]. - Differential Diagnosis atypical chest pain, ACS, pulm edema Critical care attestation.: If time is entered above; I have spent that time in minutes in the direct care of this critically ill patient, excluding procedure time. ED Disposition Clinical Impression: Chest pain Disposition: DC-01 TO HOME OR SELFCARE Is pt being admited?: No Condition: Stable Instructions: Chest Pain (ED) Referrals: PRIMARY CARE, [Primary Care Provider] - 3-5 Days Time of Disposition: 17:28
[2019-04-20 14:46] LABS: Calcium 8.9 mg/dL (8.4-10.2)
--- NOTE | 2019-04-20 15:00 | XRay Report ---
CHEST 1 VIEW INDICATION: chest pain. COMPARISON: 03/24/2019 FINDINGS: Support devices: None. Heart: Mild cardiomegaly is stable. Lungs/Pleura: Bilateral pulmonary venous congestion has decreased by 50%. No evidence for pleural eff usion, infiltrate or pneumothorax. Additional findings: None. IMPRESSION: Mild cardiomegaly and pulmonary venous congestion which has improved slightly since 03/24/2019. Signer Name: Torey Pierson Jr, MD Signed: 04/20/2019 2:56 PM Workstation Name: [id number]
[2019-04-20 15:02] LABS: Chol/HDL Ratio 2.84 %
[2019-04-20 18:00] VITALS: BP 153/69
== END 2019-04-20 18:00 | disposition home or self-care (01) ==
LOC: ED 13:25
DX: R07.89 Other chest pain (principal); I11.0 Hypertensive heart disease with heart failure; I50.9 Heart failure, unspecified; I25.2 Old myocardial infarction; M19.90 Unspecified osteoarthritis, unspecified site; G43.909 Migraine, unspecified, not intractable, without status migrainosus; J44.9 Chronic obstructive pulmonary disease, unspecified; Z95.5 Presence of coronary angioplasty implant and graft; Z98.890 Other specified postprocedural states; Z86.73 Personal history of transient ischemic attack (TIA), and cerebral infarction without residual deficits; Z79.899 Other long term (current) drug therapy
CPT/HCPCS: 36415; 71045; 80048; 80061; 84484; 85025; 93005; 93010

== ENCOUNTER 2019-07-15 10:29 | Observation (INO) | payer MEDICARE ==
--- NOTE | 2019-07-15 10:40 | Emergency Department Report ---
HPI - General Time Seen by Provider: 07/15/19 10:35 - HPI HPI: 59-year-old -[place] female presents to the emergency department via EMS from her dialysis center after the patient had a fall out of bed this morning and subsequently the dialysis center would not perform her dialysis. The patient's that she fell from the bed to the floor while she was sleeping. She says that she did hit her head but denies any loss of consciousness. She also hit her neck and her left hip and says that she has some mild discomfort in these areas. The neck pain only occurs when the patient is turning her head. She has a past medical history of hypertension, diabetes, CHF and end-stage renal disease on hemodialysis on Saturday/Saturday/Saturday. She did not have dialysis on Saturday. Her mechanic assistant is Dr. Batista. ED Past Medical Hx - Past Medical History Hx Hypertension: Yes Hx CVA: Yes (x4, 8 TIAs) Hx Heart Attack/AMI: Yes (2017) Hx Congestive Heart Failure: Yes Hx Diabetes: Yes Hx Liver Disease: No Hx Renal Disease: Yes Hx Arthritis: Yes Hx Headaches / Migraines: Yes Hx Seizures: Yes Hx Asthma: Yes Hx COPD: Yes (inhalers prn) Hx HIV: No - Surgical History Hx Coronary Stent: Yes (x 3) Hx Pacemaker: No Hx Internal Defibrillator: No Hx Breast Surgery: Yes (reduction (1979)) Additional Surgical History: breast reduction 1979, av fistula left arm - Social History Smoking Status: Never Smoker Substance Use Type: None - Medications Home Medications: Home Medications Medication Instructions Recorded Confirmed Last Taken Type Aspirin EC [Halfprin EC] 81 mg PO QDAY 07/15/19 07/15/19 Unknown History Calcium Acetate 667 mg PO TID 07/15/19 07/15/19 Unknown History Clopidogrel [Plavix] 75 mg PO QDAY 07/15/19 07/15/19 Unknown History Ipratropium (Nf) [Atrovent] 2 puff IH Q6HR 07/15/19 07/15/19 Unknown History Sertraline [Zoloft] 50 mg PO QDAY 07/15/19 07/15/19 Unknown History Simvastatin 40 mg PO QHS 07/15/19 07/15/19 Unknown History Torsemide [Demadex] 20 mg PO QDAY 07/15/19 07/15/19 Unknown History carvediloL [Coreg] 12.5 mg PO BID 07/15/19 07/15/19 Unknown History hydrALAZINE [Apresoline] 25 mg PO BID 07/15/19 07/15/19 Unknown History oxyCODONE /ACETAMINOPHEN [Percocet 1 tab PO Q6HR PRN 07/15/19 07/15/19 Unknown History 5/325] ED Review of Systems ROS: Stated complaint: NECK AND SHOULDER PAIN Other details as noted in HPI Comment: All other systems reviewed and negative Constitutional: denies: chills, fever Eyes: denies: eye pain, vision change Respiratory: denies: cough, shortness of breath Cardiovascular: denies: chest pain, palpitations Gastrointestinal: denies: abdominal pain, vomiting Genitourinary: denies: dysuria, discharge Musculoskeletal: arthralgia. denies: back pain, joint swelling Skin: denies: rash, lesions Neurological: denies: headache, weakness, numbness, paresthesias Physical Exam - Physical Exam Physical Exam: GENERAL: The patient is well-developed well-nourished. HENT: Normocephalic. Atraumatic. Patient has moist mucous membranes. EYES: Extraocular motions are intact. Pupils equal reactive to light bilaterally. NECK: Supple. Trachea is midline. There is no midline tenderness to palpation, step-off or deformity. CHEST/LUNGS: Clear to auscultation. There is no respiratory distress noted. HEART/CARDIOVASCULAR: Regular. There is no tachycardia. There is no murmur. ABDOMEN: Abdomen is soft, nontender. Patient has normal bowel sounds. SKIN: Skin is warm and dry. NEURO: The patient is awake, alert, and oriented. The patient is cooperative. The patient has no focal neurologic deficits. Normal speech. Cranial nerves II through XII grossly intact. MUSCULOSKELETAL: There is some tenderness to palpation to the left hip but no obvious deformity. There is no limitation range of motion. There is a patent left upper extremity dialysis fistula. ED Course - Consultations Consultation #1: I spoke to the patient's mechanic assistant, Dr. Batista, who will arrange for the patient to have dialysis and has requested for the patient to receive a CT scan of the head without contrast. 07/15/19 14:03 ED Medical Decision Making - Lab Data Result diagrams: 07/15/19 11:05 07/15/19 11:05 - Radiology Data Radiology results: report reviewed, image reviewed interpreted by me: X-ray of the cervical spine does not show any fracture, subluxation, or any acute process. X-ray of the left hip does not show any fracture, dislocation, or any acute process. CT HEAD WITHOUT CONTRAST INDICATION / CLINICAL INFORMATION: head trauma, fall. TECHNIQUE: All CT scans at this location are performed using CT dose reduction for ALARA by means of automated exposure control. COMPARISON: Head CT 05/03/2018. FINDINGS: HEMORRHAGE: No evidence of intracranial hemorrhage or extra-axial fluid collection. EXTRA-AXIAL SPACES: Cortical sulci, sylvian fissures and basilar cisterns have an unremarkable appearance. VENTRICULAR SYSTEM: The ventricular system is of normal size and configuration. CEREBRAL PARENCHYMA: No areas of abnormal brain parenchymal attenuation are identified. There is no indication of recent infarction. MIDLINE SHIFT OR HERNIATION: There is no mass effect. CEREBELLUM / BRAINSTEM: Brainstem and cerebellum have an unremarkable appearance. INTRACRANIAL VESSELS:No abnormalities are identified on this noncontrast head CT. ORBITS: visualized portions of the orbits have an unremarkable appearance. SOFT TISSUES of HEAD: No significant abnormality. CA LVARIUM: Evaluation of bone windows reveals no abnormalities. PARANASAL SINUSES / MASTOID AIR CELLS: Paranasal sinuses are free from inflammatory mucosal disease. Mastoid air cells are normally pneumatized. ADDITIONAL FINDINGS: None. IMPRESSION: 1. No abnormality identified on head CT without contrast. No interval change. Evaluation neurologist with - Medical Decision Making This patient presents to the emergency department after she fell out of bed onto the floor and hit her head, neck and hip. She went to get dialysis but would not receive dialysis secondary to her fall. She presents awake, alert, oriented, with complaints of some left lateral neck pain and left hip pain. X- rays were done of the cervical spine and left hip that did not show any fracture, subluxation, dislocation or any acute process. Patient's labs show renal failure with hyperkalemia with potassium 6.1. Hyperkalemia cocktail, minus Kayexalate, was given to the patient. Nephrology was contacted and consult. The patient did have a CT scan of the head without contrast that did not show any bleed, shift, mass, ischemia, or any other acute process. The patient was accepted for admission by the hospitalist, Dr. Coyle. - Differential Diagnosis hip fracture, contusion, hyperkalemia, muscle strain Critical Care Time: No Critical care attestation.: If time is entered above; I have spent that time in minutes in the direct care of this critically ill patient, excluding procedure time. ED Disposition Clinical Impression: ESRD needing dialysis, Hyperkalemia Fall from bed Qualifiers: Encounter type: initial encounter Qualified Code(s): W06.XXXA - Fall from bed, initial encounter Hypertension Qualifiers: Hypertension type: essential hypertension Qualified Code(s): I10 - Essential (primary) hypertension Disposition: OP ADMIT IP TO THIS HOSP Is pt being admited?: Yes Condition: Fair Time of Disposition: 14:07
--- NOTE | 2019-07-15 11:39 | XRay Report ---
CERVICAL SPINE, 4 VIEWS INDICATION: neck pain, fall. COMPARISON: None. IMPRESSION: Normal alignment. Mild degenerative disc disease is identified at C3-4 and C4-5. Modera te degenerative disc disease is identified at C5-6. No acute osseous or soft tissue abnormality. Inc idental left C7 cervical rib is noted measuring approximately 4-5 cm in length. LEFT HIP, 2 VIEWS INDICATION: neck pain, fall. COMPARISON: None. IMPRESSION: No acute osseous or soft tissue abnormality. No significant DJD. Signer Name: Torey Pierson Jr, MD Signed: 07/15/2019 11:35 AM Workstation Name: [id number]
[2019-07-15 11:41] LABS: Basophils % (Auto) 0.7 % (0.0-1.8); Eosinophils # (Auto) 0.1 K/mm3 (0.0-0.4); Eosinophils % (Auto) 1.6 % (0.0-4.3); Hematocrit 35.2 % (30.3-42.9); Lymphocytes # (Auto) 0.3 K/mm3 (1.2-5.4); Lymphocytes % (Auto) 6.5 % (13.4-35.0); Mean Corpuscular HGB Conc 31 % (30-34); Mean Corpuscular Volume 91 fl (79-97); Monocytes # (Auto) 0.4 K/mm3 (0.0-0.8); Monocytes % (Auto) 7.6 % (0.0-7.3); Platelet Count 153 K/mm3 (140-440); Red Blood Count 3.86 M/mm3 (3.65-5.03); Red Cell Distribution Width 17.4 % (13.2-15.2)
[2019-07-15 11:58] LABS: Calcium 9.3 mg/dL (8.4-10.2)
[2019-07-15] MEDS ORDERED: INSULIN REGULAR, HUMAN 100 UNITS/1 ML IV ONE (12:09)
[2019-07-15] MEDS ORDERED: DEXTROSE 50% IN WATER (25GM) 50 ML SYRINGE IV ONE (12:10)
[2019-07-15] MEDS ORDERED: ALBUTEROL 2.5 MG/3 ML NEBU IH ONE (12:10)
[2019-07-15] MEDS ORDERED: SODIUM CHLORIDE 0.9% 100 ML IV PRN (12:40)
--- NOTE | 2019-07-15 12:43 | Consultation ---
History of Present Illness - Reason for Consult Consult date: 07/15/19 end stage renal disease - History of Present Illness Mrs. Walker is a 59yo with ESRD on HD TTS who presented to the ED w/ hx of fall w/ head injury. Patient fell out of bed, hitting her head, neck and left hip. Labs in the ED were notable BUN 92, K 6.1. Her last dialysis treatment was on Saturday. Past History Past Medical History: anemia, CAD, ESRD, hypertension Past Surgical History: Other (PD catheter placement/removal, AV access creation) Social history: no significant social history Family history: no significant family history Medications and Allergies Allergies Allergy/AdvReac Type Severity Reaction Status Date / Time No Known Allergies Allergy Unverified 10/09/15 20:10 Home Medications Medication Instructions Recorded Confirmed Last Taken Type Aspirin EC [Halfprin EC] 81 mg PO QDAY 07/15/19 07/15/19 Unknown History Calcium Acetate 667 mg PO TID 07/15/19 07/15/19 Unknown History Clopidogrel [Plavix] 75 mg PO QDAY 07/15/19 07/15/19 Unknown History Ipratropium (Nf) [Atrovent] 2 puff IH Q6HR 07/15/19 07/15/19 Unknown History Sertraline [Zoloft] 50 mg PO QDAY 07/15/19 07/15/19 Unknown History Simvastatin 40 mg PO QHS 07/15/19 07/15/19 Unknown History Torsemide [Demadex] 20 mg PO QDAY 07/15/19 07/15/19 Unknown History carvediloL [Coreg] 12.5 mg PO BID 07/15/19 07/15/19 Unknown History hydrALAZINE [Apresoline] 25 mg PO BID 07/15/19 07/15/19 Unknown History oxyCODONE /ACETAMINOPHEN [Percocet 1 tab PO Q6HR PRN 07/15/19 07/15/19 Unknown History 5/325] Active Meds: Active Medications Calcium Gluconate 1,000 mg/ (Sodium Chloride) 110 mls @ 660 mls/hr IV ONCE ONE Stop: 07/15/19 13:18 Review of Systems All systems: negative Exam - Vital Signs Vital signs: Vital Signs Resp BP Pulse Ox 16 160/100 98 07/15/19 10:38 07/15/19 10:38 07/15/19 10:38 - General Appearance General appearance: well-developed, well-nourished EENT: ATNC Respiratory: Clear to Ascultation Heart: regular, S1S2 Gastrointestinal: Present: normal. Absent: tenderness, distended Integumentary: no rash, warm and dry Neurologic: no focal deficit, alert and oriented x3 Musculoskeletal: Present: other (no edema) Psychiatric: cooperative Results - Lab Results 07/15/19 11:05 07/15/19 11:05 Most recent lab results Calcium 9.3 mg/dL (8.4-10.2) 07/15/19 11:05 Assessment and Plan Impression: * End stage renal disease on hemodialysis * Hyperkalemia * Azotemia * Metabolic acidosis * Hypertension * Hx of CAD * Anemia secondary to ESRD * Secondary hyperPTH Plan: * Will plan for HD today - UF as tolerated * Resume TTS schedule tomorrow * Cardiology recommendations reviewed * Dose medications for renal function * Epogen TIW prn * Renal diet * Need for compliance addressed with patient
[2019-07-15] MEDS ORDERED: CALCIUM GLUCONATE 1,000 MG in SODIUM CHLORIDE 0.9% 100 ML IV ONE (13:09)
--- NOTE | 2019-07-15 13:53 | Cat Scan Report ---
CT HEAD WITHOUT CONTRAST INDICATION / CLINICAL INFORMATION: head trauma, fall. TECHNIQUE: All CT scans at this location are performed using CT dose reduction for ALARA by means of automated e xposure control. COMPARISON: Head CT 05/03/2018. FINDINGS: HEMORRHAGE: No evidence of intracranial hemorrhage or extra-axial fluid collection. EXTRA-AXIAL SPACES: Cortical sulci, sylvian fissures and basilar cisterns have an unremarkable appear ance. VENTRICULAR SYSTEM: The ventricular system is of normal size and configuration. CEREBRAL PARENCHYMA: No areas of abnormal brain parenchymal attenuation are identified. There is no i ndication of recent infarction. MIDLINE SHIFT OR HERNIATION: There is no mass effect. CEREBELLUM / BRAINSTEM: Brainstem and cerebellum have an unremarkable appearance. INTRACRANIAL VESSELS:No abnormalities are identified on this noncontrast head CT. ORBITS: visualized portions of the orbits have an unremarkable appearance. SOFT TISSUES of HEAD: No significant abnormality. CALVARIUM: Evaluation of bone windows reveals no abnormalities. PARANASAL SINUSES / MASTOID AIR CELLS: Paranasal sinuses are free from inflammatory mucosal disease. Mastoid air cells are normally pneumatized. ADDITIONAL FINDINGS: None. IMPRESSION: 1. No abnormality identified on head CT without contrast. No interval change. Signer Name: Chris Vargas MD Signed: 07/15/2019 1:48 PM Workstation Name: [id number] / [email or web address]
[2019-07-15 14:27] LABS: Hepatitis C Virus Antibody Non-Reactive (NonReactive)
[2019-07-15 15:15] LABS: Hepatitis B Surface Antigen Non-Reactive (Negative)
--- NOTE | 2019-07-15 20:15 | History and Physical Report ---
History of Present Illness Date of examination: 07/15/19 Date of admission: 07/15/19 12:53 Chief complaint: Shortness of breath secondary to missed hemodialysis Fall from bed this morning History of present illness: 59-year-old -[place] male comes to the emergency room for Missed dialysis. Patient apparently had dialysis on 07/10/2019. Missed hemo dialysis on 07/13/2019. Patient went to the dialysis center and because of her missed dialysis was sent here for medical clearance. Patient also fell from the bed while she was sleeping and hit her head. No loss of consciousness. Has some pain in the neck region.Shortness of breath present. No chest pain. No recent travel. Patient undergoes hemodialysis on Saturday. Patient has history of cerebrovascular accident, coronary artery disease,congestive heart failure and end-stage renal disease. Past Medical History Hypertension: Yes CVA: Yes (x4, 8 TIAs) Heart Attack/AMI: Yes (2017) Congestive Heart Failure: Yes Diabetes: Yes Renal Disease: Yes Arthritis: Yes Headaches / Migraines: Yes Seizures: Yes Asthma: Yes COPD: Yes (inhalers prn) Surgical History Coronary Stent: Yes (x 3) Breast Surgery: Yes (reduction (1979)) Additional Surgical History: breast reduction 1979, av fistula left arm Social History Smoking Status: Never Smoker Substance Use Type: None Family history Htn Medications Home Medications: Home Medications Medication Instructions Recorded Confirmed Last Taken Type Aspirin EC [Halfprin EC] 81 mg PO QDAY 07/15/19 07/15/19 Unknown History Calcium Acetate 667 mg PO TID 07/15/19 07/15/19 Unknown History Clopidogrel [Plavix] 75 mg PO QDAY 07/15/19 07/15/19 Unknown History Ipratropium (Nf) [Atrovent] 2 puff IH Q6HR 07/15/19 07/15/19 Unknown History Sertraline [Zoloft] 50 mg PO QDAY 07/15/19 07/15/19 Unknown History Simvastatin 40 mg PO QHS 07/15/19 07/15/19 Unknown History Torsemide [Demadex] 20 mg PO QDAY 07/15/19 07/15/19 Unknown History carvediloL [Coreg] 12.5 mg PO BID 07/15/19 07/15/19 Unknown History hydrALAZINE [Apresoline] 25 mg PO BID 07/15/19 07/15/19 Unknown History oxyCODONE /ACETAMINOPHEN [Percocet 1 tab PO Q6HR PRN 07/15/19 07/15/19 Unknown History ] Review of Systems ROS: Stated complaint: NECK AND SHOULDER PAIN Other details as noted in HPI Comment: All other systems reviewed and negative Constitutional: denies: chills, fever Eyes: denies: eye pain, vision change Respiratory: denies: cough, shortness of breath Cardiovascular: denies: chest pain, palpitations Gastrointestinal: denies: abdominal pain, vomiting Genitourinary: denies: dysuria, discharge Musculoskeletal: arthralgia. denies: back pain, joint swelling Skin: denies: rash, lesions Neurological: denies: headache, weakness, numbness, paresthesias Past History Past Medical History: anemia, CAD, ESRD, hypertension Past Surgical History: Other (PD catheter placement/removal, AV access creation) Social history: no significant social history Family history: no significant family history Medications and Allergies Allergies Allergy/AdvReac Type Severity Reaction Status Date / Time No Known Allergies Allergy Unverified 10/09/15 20:10 Home Medications Medication Instructions Recorded Confirmed Last Taken Type Aspirin EC [Halfprin EC] 81 mg PO QDAY 07/15/19 07/15/19 Unknown History Calcium Acetate 667 mg PO TID 07/15/19 07/15/19 Unknown History Clopidogrel [Plavix] 75 mg PO QDAY 07/15/19 07/15/19 Unknown History Ipratropium (Nf) [Atrovent] 2 puff IH Q6HR 07/15/19 07/15/19 Unknown History Sertraline [Zoloft] 50 mg PO QDAY 07/15/19 07/15/19 Unknown History Simvastatin 40 mg PO QHS 07/15/19 07/15/19 Unknown History Torsemide [Demadex] 20 mg PO QDAY 07/15/19 07/15/19 Unknown History carvediloL [Coreg] 12.5 mg PO BID 07/15/19 07/15/19 Unknown History hydrALAZINE [Apresoline] 25 mg PO BID 07/15/19 07/15/19 Unknown History oxyCODONE /ACETAMINOPHEN [Percocet 1 tab PO Q6HR PRN 07/15/19 07/15/19 Unknown History 5/325] Active Meds: Active Medications Sodium Chloride (Nacl 0.9%) 100 mls @ 999 mls/hr IV GREY PRN PRN Reason: Hypotension Exam - Constitutional Vitals: Temp Pulse Resp BP Pulse Ox 98.0 F 88 18 162/75 94 07/15/19 19:18 07/15/19 19:18 07/15/19 19:18 07/15/19 19:18 07/15/19 12:30 General appearance: Present: mild distress, well-nourished - EENT Eyes: Present: PERRL ENT: hearing intact, clear oral mucosa - Neck Neck: Present: supple, normal ROM - Respiratory Respiratory effort: normal Respiratory: bilateral: CTA - Cardiovascular Heart rate: 78 Rhythm: regular Heart Sounds: Present: S1 & S2. Absent: rub, click - Extremities Extremities: pulses symmetrical, No edema Peripheral Pulses: within normal limits - Abdominal General gastrointestinal: Present: soft, non-tender, non-distended, normal bowel sounds Female genitourinary: Present: normal - Rectal Rectal Exam: deferred - Integumentary Integumentary: Present: clear, warm, dry - Musculoskeletal Musculoskeletal: gait normal, strength equal bilaterally - Psychiatric Psychiatric: appropriate mood/affect, intact judgment & insight - Neurologic Neurologic: CNII-XII intact, moves all extremities - Allied Health Allied health notes reviewed: nursing, case management Results - Labs CBC & Chem 7: 07/15/19 11:05 07/15/19 11:05 Labs: Laboratory Last Values WBC 5.3 K/mm3 (4.5-11.0) 07/15/19 11:05 RBC 3.86 M/mm3 (3.65-5.03) 07/15/19 11:05 Hgb 11.0 gm/dl (10.1-14.3) 07/15/19 11:05 Hct 35.2 % (30.3-42.9) 07/15/19 11:05 MCV 91 fl (79-97) 07/15/19 11:05 MCH 28 pg (28-32) 07/15/19 11:05 MCHC 31 % (30-34) 07/15/19 11:05 RDW 17.4 % (13.2-15.2) H 07/15/19 11:05 Plt Count 153 K/mm3 (140-440) 07/15/19 11:05 Lymph % (Auto) 6.5 % (13.4-35.0) L 07/15/19 11:05 [place] % (Auto) 7.6 % (0.0-7.3) H 07/15/19 11:05 Eos % (Auto) 1.6 % (0.0-4.3) 07/15/19 11:05 Baso % (Auto) 0.7 % (0.0-1.8) 07/15/19 11:05 Lymph # 0.3 K/mm3 (1.2-5.4) L 07/15/19 11:05 [place] # 0.4 K/mm3 (0.0-0.8) 07/15/19 11:05 Eos # 0.1 K/mm3 (0.0-0.4) 07/15/19 11:05 Baso # 0.0 K/mm3 (0.0-0.1) 07/15/19 11:05 Seg Neutrophils % 83.6 % (40.0-70.0) H 07/15/19 11:05 Seg Neutrophils # 4.4 K/mm3 (1.8-7.7) 07/15/19 11:05 Sodium 141 mmol/L (137-145) 07/15/19 11:05 Potassium 6.1 mmol/L (3.6-5.0) H* 07/15/19 11:05 Chloride 97.7 mmol/L (98-107) L 07/15/19 11:05 Carbon Dioxide 14 mmol/L (22-30) L 07/15/19 11:05 Anion Gap 35 mmol/L 07/15/19 11:05 BUN 92 mg/dL (7-17) H 07/15/19 11:05 Creatinine 13.8 mg/dL (0.7-1.2) H 07/15/19 11:05 Estimated GFR 3 ml/min 07/15/19 11:05 BUN/Creatinine Ratio 7 % 07/15/19 11:05 Glucose 100 mg/dL (65-100) 07/15/19 11:05 Calcium 9.3 mg/dL (8.4-10.2) 07/15/19 11:05 Hepatitis A IgM Ab Non-reactive (NonReactive) 07/15/19 13:31 Hep Bs Antigen Non-reactive (Negative) 07/15/19 13:31 Hep B Core IgM Ab Non-reactive (NonReactive) 07/15/19 13:31 Hepatitis C Antibody Non-reactive (NonReactive) 07/15/19 13:31 Short CBC 07/15/19 Range/Units 11:05 WBC 5.3 (4.5-11.0) K/mm3 Hgb 11.0 (10.1-14.3) gm/dl Hct 35.2 (30.3-42.9) % Plt Count 153 (140-440) K/mm3 BMP 07/15/19 11:05 Sodium 141 Potassium 6.1 H* Chloride 97.7 L Carbon Dioxide 14 L BUN 92 H Creatinine 13.8 H Glucose 100 Calcium 9.3 - Imaging and Cardiology Imaging and Cardiology: CT head No acute findings Hip x-ray No acute findings C-spine x-rays No acute findings Assessment and Plan Advance Directives: Yes (full code) VTE prophylaxis?: Chemical Plan of care discussed with patient/family: Yes - Patient Problems (1) Volume overload Current Visit: Yes Status: Acute Plan to address problem: Secondary to missed hemodialysis Patient admitted because of the shortness of breath and outpatient hemodialysis not doing the dialysis and needing medical clearance. (2) Hyperkalemia Current Visit: Yes Status: Acute Plan to address problem: Patient going for emergent hemodialysis Patient also received IV calcium gluconate Check BMP after hemodialysis for potassium level (3) ESRD needing dialysis Current Visit: Yes Status: Acute Plan to address problem: Patient going for emergent hemodialysis Nephrology consulted (4) Fall from bed Current Visit: Yes Status: Acute Qualifiers: Encounter type: initial encounter Qualified Code(s): W06.XXXA - Fall from bed, initial encounter Plan to address problem: No fractures. Patient had multiple imaging studies and all are negative (5) Hypertension Current Visit: Yes Status: Chronic Qualifiers: Hypertension type: essential hypertension Qualified Code(s): I10 - Essential (primary) hypertension Plan to address problem: Continue antihypertensives Continue blood pressure medications as necessary (6) Acute exacerbation of CHF (congestive heart failure) Current Visit: Yes Status: Acute Qualifiers: Heart failure type: diastolic Qualified Code(s): I50.33 - Acute on chronic diastolic (congestive) heart failure Plan to address problem: Diastolic failure secondary to volume overload Echo was not ordered (7) COPD (chronic obstructive pulmonary disease) Current Visit: Yes Status: Chronic Qualifiers: Emphysema type: unspecified Plan to address problem: Continue duo nebs (8) Coronary artery disease Current Visit: Yes Status: Chronic Qualifiers: Coronary Disease-Associated Artery/Lesion type: [place] artery [place] vs. transplanted heart: [place] heart Plan to address problem: Continue Plavix (9) Hyperlipidemia Current Visit: Yes Status: Chronic Qualifiers: Hyperlipidemia type: mixed hyperlipidemia Qualified Code(s): E78.2 - Mixed hyperlipidemia Plan to address problem: Continue simvastatin 40 mg by mouth daily at bedtime (10) Depression Current Visit: Yes Status: Chronic Qualifiers: Depression Type: unspecified Qualified Code(s): F32.9 - Major depressive disorder, single episode, unspecified Plan to address problem: Continue Seroquel 50 mg once a day (11) DVT prophylaxis Current Visit: Yes Status: Acute Plan to address problem: On heparin 5000 every 12 and GI prophylaxis
[2019-07-15] MEDS ORDERED: oxyCODONE /ACETAMINOPHEN 5-325MG TAB PO PRN (20:33)
[2019-07-15] MEDS ORDERED: ONDANSETRON 4 MG/2 ML INJ IV PRN (20:36)
[2019-07-15] MEDS ORDERED: HYDROmorphone 1 MG/1 ML INJ IV PRN (20:36)
[2019-07-15] MEDS ORDERED: METOCLOPRAMIDE 10 MG/2 ML INJ IV PRN (20:36)
[2019-07-15] MEDS ORDERED: ACETAMINOPHEN 325 MG TAB PO PRN (20:36)
[2019-07-15] MEDS ORDERED: NON-FORMULARY EACH (Torsemide [Demadex] 20 MG) PO SCH (20:45)
[2019-07-15] MEDS ORDERED: NON-FORMULARY EACH (Ipratropium (Nf) 2 PUFF) IH SCH (20:45)
[2019-07-15] MEDS ORDERED: NON-FORMULARY EACH (Simvastatin [Simvastatin] 40 MG) PO SCH (22:00)
[2019-07-15] MEDS ORDERED: PRAVASTATIN 80 MG TAB PO SCH (22:00)
[2019-07-15] MEDS: CLOPIDOGREL 75 MG TAB PO SCH (22:18)
[2019-07-15] MEDS: ASPIRIN EC 81 MG TAB PO SCH (22:18)
[2019-07-15] MEDS: hydrALAZINE 25 MG TAB PO SCH (22:19)
[2019-07-15] MEDS: SERTRALINE 50 MG TAB PO SCH (22:19)
[2019-07-15] MEDS: carvediloL 12.5 MG TAB PO SCH (22:20)
[2019-07-15] MEDS: TORSEMIDE 10 MG TAB PO SCH (22:21)
[2019-07-16 05:49] LABS: Basophils % (Auto) 0.7 % (0.0-1.8); Eosinophils # (Auto) 0.1 K/mm3 (0.0-0.4); Eosinophils % (Auto) 2.3 % (0.0-4.3); Hematocrit 32.6 % (30.3-42.9); Hemoglobin 10.4 gm/dl (10.1-14.3); Lymphocytes # (Auto) 0.3 K/mm3 (1.2-5.4); Lymphocytes % (Auto) 8.7 % (13.4-35.0); Mean Corpuscular HGB Conc 32 % (30-34); Mean Corpuscular Volume 88 fl (79-97); Monocytes # (Auto) 0.5 K/mm3 (0.0-0.8); Monocytes % (Auto) 11.5 % (0.0-7.3); Platelet Count 156 K/mm3 (140-440); Red Cell Distribution Width 17.2 % (13.2-15.2)
[2019-07-16 06:14] LABS: Albumin 3.8 g/dL (3.9-5); BUN/Creatinine Ratio 5; Blood Urea Nitrogen 34 mg/dL (7-17); Hemolysis Index 2
[2019-07-16] MEDS: IPRATROPIUM 0.02% NEBU 2.5 ML IH SCH ×3 (06:18→13:34)
[2019-07-16 06:19] LABS: Alanine Aminotransferase < 5 units/L (7-56)
[2019-07-16] MEDS: TORSEMIDE 10 MG TAB PO SCH (06:42)
[2019-07-16] MEDS ORDERED: CALCIUM ACETATE 667 MG PO SCH (08:00)
[2019-07-16] MEDS: CALCIUM ACETATE 667 MG CAP PO SCH ×2 (08:30→14:02)
--- NOTE | 2019-07-16 09:32 | Progress Note ---
Assessment and Plan Impression: * End stage renal disease on hemodialysis * Hyperkalemia * Azotemia * Metabolic acidosis * Hypertension * Hx of CAD * Anemia secondary to ESRD * Secondary hyperPTH Plan: * Will plan for HD today - UF as tolerated * Continue TTS schedule * Dose medications for renal function * Epogen TIW prn * Renal diet * Need for compliance addressed with patient Subjective Date of service: 07/16/19 Interval history: Patient seen on dialysis. She has no complaints today. Objective - Vital Signs Vital signs: Vital Signs - 12hr 07/15/19 07/15/19 07/15/19 22:09 22:19 22:20 Temperature 98.1 F Pulse Rate 92 H 92 H Respiratory 16 Rate Blood Pressure 102/53 102/53 102/53 O2 Sat by Pulse 94 Oximetry 07/16/19 04:59 Temperature 99.2 F Pulse Rate Respiratory 16 Rate Blood Pressure 139/77 O2 Sat by Pulse Oximetry - General Appearance General appearance: well-developed, well-nourished EENT: ATNC Respiratory: Present: Clear to Ascultation Cardiology: regular, S1S2 Gastrointestinal: normal, no tenderness, no distended Integumentary: no rash, warm and dry Neurologic: no focal deficit, alert and oriented x3 Musculoskeletal: other (no edema) Psychiatric: cooperative - Lab 07/16/19 05:06 07/16/19 05:06 Most recent lab results Calcium 9.0 mg/dL (8.4-10.2) 07/16/19 05:06 Medications & Allergies - Medications Allergies/Adverse Reactions: Allergies No Known Allergies Allergy (Unverified 10/09/15 20:10) Home Medications: Home Medications Medication Instructions Recorded Confirmed Last Taken Type Aspirin EC [Halfprin EC] 81 mg PO QDAY 07/15/19 07/15/19 Unknown History Calcium Acetate 667 mg PO TID 07/15/19 07/15/19 Unknown History Clopidogrel [Plavix] 75 mg PO QDAY 07/15/19 07/15/19 Unknown History Ipratropium (Nf) [Atrovent] 2 puff IH Q6HR 07/15/19 07/15/19 Unknown History Sertraline [Zoloft] 50 mg PO QDAY 07/15/19 07/15/19 Unknown History carvediloL [Coreg] 12.5 mg PO BID 07/15/19 07/15/19 Unknown History hydrALAZINE [Apresoline] 25 mg PO BID 07/15/19 07/15/19 Unknown History oxyCODONE /ACETAMINOPHEN [Percocet 1 tab PO Q6HR PRN 07/15/19 07/15/19 Unknown History 5/325] Active Medications: Generic Name Dose Route Start Last Admin Trade Name Freq PRN Reason Stop Dose Admin Acetaminophen 650 mg 07/15/19 20:36 Tylenol PO Q4H PRN Pain MILD(1-3)/Fever >100.5/MCDANIEL Aspirin 81 mg 07/15/19 21:00 07/15/19 22:18 Halfprin Ec PO 81 mg QDAY [facility] Administration Calcium Acetate 667 mg 07/16/19 08:00 07/16/19 08:30 Phoslo PO 667 mg TID LENCHO Administration Carvedilol 12.5 mg 07/15/19 22:00 07/15/19 22:20 Coreg PO Not Given BID [facility] Clopidogrel Bisulfate 75 mg 07/15/19 21:00 07/15/19 22:18 Plavix PO 75 mg QDAY LENCHO Administration Hydralazine HCl 25 mg 07/15/19 22:00 07/15/19 22:19 Apresoline PO Not Given BID LENCHO Hydromorphone HCl 0.5 mg 07/15/19 20:36 Dilaudid IV Q3H PRN Pain , Severe (7-10) Sodium Chloride 100 mls @ 999 mls/hr 07/15/19 12:40 Nacl 0.9% IV GREY PRN Hypotension Ipratropium [place] 0.5 mg 07/15/19 22:00 07/16/19 08:11 Atrovent IH 0.5 mg Q6HRT LENCHO Administration Metoclopramide HCl 10 mg 07/15/19 20:36 Reglan IV Q6H PRN Nausea And Vomiting Ondansetron HCl 4 mg 07/15/19 20:36 Zofran IV Q3H PRN Nausea And Vomiting Oxycodone/Acetaminophen 1 tab 07/15/19 20:33 Percocet 5/325 PO Q6HR PRN PAIN Pravastatin Sodium 80 mg 07/15/19 22:00 07/15/19 22:18 Pravachol PO 80 mg QHS LENCHO Administration Sertraline HCl 50 mg 07/15/19 21:00 07/15/19 22:19 Zoloft PO Not Given QDAY LENCHO Sodium Chloride 10 ml 07/15/19 22:00 07/15/19 22:29 Sodium Chloride Flush Syringe 10 Ml IV 10 ml BID LENCHO Administration Sodium Chloride 10 ml 07/15/19 20:36 Sodium Chloride Flush Syringe 10 Ml IV PRN PRN LINE FLUSH Torsemide 20 mg 07/15/19 22:00 07/16/19 06:42 Demadex PO Not Given DAILY@0600 LENCHO
[2019-07-16] MEDS ORDERED: SODIUM CHLORIDE 0.9% 100 ML IV PRN (10:00)
--- NOTE | 2019-07-16 13:53 | Discharge Summary ---
Providers - Providers Date of Admission: 07/15/19 12:53 Date of discharge: 07/16/19 Attending physician: DAREN CONROY 07/15/19 Consult to Physician [CONS] Routine Comment: Consulting Provider: SUZAN LOGAN Physician Instructions: Reason For Exam: ESRD Hospitalization Reason for admission: Shortness of breath/Missed HD/Fall Condition: Fair Pertinent studies: CT head, Hip xray CXR Cervical spine Xray Hospital course: 59-year-old -[place] male comes to the emergency room for Missed dialysis. Patient apparently had dialysis on 07/10/2019. Missed hemodialysis on 07/13/2019. Patient went to the dialysis center and because of her missed dialysis was sent here for medical clearance. Patient also fell from the bed while she was sleeping and hit her head. No loss of consciousness. Has some pain in the neck region.Shortness of breath present. No chest pain. No recent travel. Patient undergoes hemodialysis on Saturday. Patient has history of cerebrovascular accident, coronary artery disease,congestive heart failure and end-stage renal disease. Patient was evaluated by nephrology,received emergency HD. Had h/o fall,no external injuries, Xrays and CT scans neg for acute injury. Stable at discharge. Discharge Diagnosis: --Volume overload Current Visit: Yes Status: Acute Secondary to missed hemodialysis Received HD --Hyperkalemia: resolved Current Visit: Yes Status: Acute Patient received emergent hemodialysis Patient also received IV calcium gluconate --ESRD needing dialysis Current Visit: Yes Status: Acute Patient received emergent hemodialysis Nephrology evaluated --Fall from bed Current Visit: Yes Status: Acute No fractures. Patient had multiple imaging studies and all are negative -- Hypertension Current Visit: Yes Status: Chronic Continue antihypertensives Continue blood pressure medications --Acute exacerbation of CHF (congestive heart failure) Current Visit: Yes Status: Acute Diastolic failure secondary to volume overload cont current management --COPD (chronic obstructive pulmonary disease) Current Visit: Yes Status: Chronic Continue duo nebs --Coronary artery disease Current Visit: Yes Status: Chronic Continue Plavix --Hyperlipidemia Current Visit: Yes Status: Chronic Continue simvastatin 40 mg daily at bedtime --Depression Current Visit: Yes Status: Chronic Continue Seroquel 50 mg once a day -- DVT prophylaxis Current Visit: Yes Status: Acute On heparin 5000 every 12 and GI prophylaxis Stable at discharge Disposition: TO HOME OR SELFCARE Time spent for discharge: 32min Core Measure Documentation - Palliative Care Palliative Care/ Comfort Measures: Not Applicable - Core Measures Any of the following diagnoses?: none Exam - Constitutional Vitals: Temp Pulse Resp BP Pulse Ox 98.7 F 93 H 18 147/83 94 07/16/19 09:15 07/16/19 11:30 07/16/19 09:15 07/16/19 11:30 07/15/19 22:09 General appearance: Present: no acute distress, well-nourished - EENT Eyes: Present: PERRL, EOM intact - Neck Neck: Present: supple, normal ROM - Respiratory Respiratory effort: normal Respiratory: bilateral: diminished, negative: rales, rhonchi, wheezing - Cardiovascular Rhythm: regular Heart Sounds: Present: S1 & S2 - Extremities Extremities: no ischemia, No edema - Abdominal General gastrointestinal: Present: soft, non-tender, non-distended, normal bowel sounds - Integumentary Integumentary: Present: clear, warm - Musculoskeletal Musculoskeletal: strength equal bilaterally - Psychiatric Psychiatric: appropriate mood/affect, cooperative - Neurologic Neurologic: CNII-XII intact, moves all extremities Plan Activity: advance as tolerated Diet: renal Additional Instructions: Follow Nephrology and hemodialysis per schedule. Advised to comply with dialysis, follow-up visits and diet Follow up with: OLLIE POLLOCK [Other] - 3-5 Days Prescriptions: Torsemide [Demadex] 20 mg PO DAILY@0600 #30 tablet Simvastatin 40 mg PO QHS #30 tablet
[2019-07-16] MEDS: carvediloL 12.5 MG TAB PO SCH (14:02)
[2019-07-16] MEDS: CLOPIDOGREL 75 MG TAB PO SCH (14:02)
[2019-07-16] MEDS: ASPIRIN EC 81 MG TAB PO SCH (14:02)
[2019-07-16] MEDS: SERTRALINE 50 MG TAB PO SCH (14:03)
[2019-07-16] MEDS: hydrALAZINE 25 MG TAB PO SCH (14:03)
[2019-07-16 14:04] VITALS: BP 120/64
== END 2019-07-16 16:30 | disposition home or self-care (01) ==
LOC: ED 10:29 → 3A 12:53
PROVIDERS: ADMIT Internal Medicine; ATTEND Internal Medicine
DX: I13.2 Hypertensive heart and chronic kidney disease with heart failure and with stage 5 chronic kidney disease, or end stage renal disease (principal); E11.22 Type 2 diabetes mellitus with diabetic chronic kidney disease; N18.6 End stage renal disease; I50.9 Heart failure, unspecified; D63.1 Anemia in chronic kidney disease; E87.5 Hyperkalemia; E78.5 Hyperlipidemia, unspecified; R79.89 Other specified abnormal findings of blood chemistry; I25.10 Atherosclerotic heart disease of native coronary artery without angina pectoris; E87.70 Fluid overload, unspecified; I25.2 Old myocardial infarction; M19.90 Unspecified osteoarthritis, unspecified site; G43.909 Migraine, unspecified, not intractable, without status migrainosus; J44.9 Chronic obstructive pulmonary disease, unspecified; E87.2 Acidosis; Z86.73 Personal history of transient ischemic attack (TIA), and cerebral infarction without residual deficits; Z99.2 Dependence on renal dialysis; Z95.5 Presence of coronary angioplasty implant and graft; Z79.82 Long term (current) use of aspirin; Z79.899 Other long term (current) drug therapy; W06.XXXA Fall from bed, initial encounter; Y92.89 Other specified places as the place of occurrence of the external cause; Y93.89 Activity, other specified
CPT/HCPCS: 36415; 70450; 72040; 73502; 80048; 80053; 80074; 82962; 85025; 94640; 96374; 96375; 99284; A9270; G0378; J0610; G0257; J1815

== ENCOUNTER 2019-08-05 20:48 | Inpatient (IN) | payer MEDICARE ==
[2019-08-05] MEDS ORDERED: ONDANSETRON 4 MG/2 ML INJ IV ONE ×2 (21:00→23:11)
[2019-08-05] MEDS ORDERED: ONDANSETRON 4 MG/2 ML INJ ONE ×2 (21:02→23:42)
[2019-08-05 21:19] LABS: Basophils % (Auto) 0.6 % (0.0-1.8); Eosinophils # (Auto) 0.1 K/mm3 (0.0-0.4); Eosinophils % (Auto) 3.1 % (0.0-4.3); Hematocrit 35.5 % (30.3-42.9); Hemoglobin 11.2 gm/dl (10.1-14.3); Lymphocytes # (Auto) 0.3 K/mm3 (1.2-5.4); Lymphocytes % (Auto) 9.1 % (13.4-35.0); Mean Corpuscular HGB Conc 32 % (30-34); Mean Corpuscular Volume 89 fl (79-97); Monocytes # (Auto) 0.3 K/mm3 (0.0-0.8); Monocytes % (Auto) 8.8 % (0.0-7.3); Platelet Count 139 K/mm3 (140-440); Red Blood Count 3.99 M/mm3 (3.65-5.03); Red Cell Distribution Width 18.2 % (13.2-15.2)
--- NOTE | 2019-08-05 21:28 | XRay Report ---
CHEST 1 VIEW INDICATION: Weakness. COMPARISON: 04/20/2019. FINDINGS: Support devices: None. Heart: Stable cardiomegaly. Lungs/Pleura: Lung volumes are diminished. No significant edema, effusion or infiltrate. Additional findings: None. IMPRESSION: 1. Stable cardiomegaly. 2. Diminished lung volumes. Signer Name: Dheeraj Fink MD Signed: 08/05/2019 9:24 PM Workstation Name: [id number]
[2019-08-05 21:30] LABS: INR 1.12 (0.87-1.13); Partial Thromboplastin Time 30.8 Sec. (24.2-36.6)
[2019-08-05 21:36] LABS: Creatine Kinase MB 2.6 ng/mL (0.0-4.0)
[2019-08-05 21:37] LABS: Albumin 4.2 g/dL (3.9-5); BUN/Creatinine Ratio 5; Blood Urea Nitrogen 31 mg/dL (7-17); Calcium 9.7 mg/dL (8.4-10.2); Hemolysis Index 1
--- NOTE | 2019-08-05 21:43 | Emergency Department Report ---
HPI - General Chief Complaint: Nausea/Vomiting/Diarrhea Time Seen by Provider: 08/05/19 20:59 - HPI HPI: 59 year-old female presents to the emergency department by EMS from home with nausea, vomiting and lethargy. The patient is oriented to person, place, time but she is immediately sleeping if not continuously stimulated or redirected. Originally EMS found her sitting up on the side of the bed vomiting, which was what the call was for originally. The patient has a past history of end-stage renal disease on hemodialysis on Saturday/ Saturday/Saturday. The patient has not had dialysis since at least last Saturday. She did not receive anything for her symptoms and round. She denies any chest pain, shortness of breath, abdominal pain. There is some report that the patient took some baclofen for some chronic back pain. ED Past Medical Hx - Past Medical History Previous Medical History?: Yes Hx Hypertension: Yes Hx CVA: Yes (x4, 8 TIAs) Hx Heart Attack/AMI: Yes (2017) Hx Congestive Heart Failure: Yes Hx Diabetes: Yes Hx Liver Disease: No Hx Renal Disease: Yes Hx Arthritis: Yes Hx Headaches / Migraines: Yes Hx Seizures: Yes Hx Asthma: Yes Hx COPD: Yes (inhalers prn) Hx HIV: No - Surgical History Past Surgical History?: Yes Hx Coronary Stent: Yes (x 3) Hx Pacemaker: No Hx Internal Defibrillator: No Hx Breast Surgery: Yes (reduction (1979)) Additional Surgical History: breast reduction 1979, av fistula left arm - Social History Smoking Status: Unknown if ever smoked Substance Use Type: None - Medications Home Medications: Home Medications Medication Instructions Recorded Confirmed Last Taken Type Aspirin EC [Halfprin EC] 81 mg PO QDAY 07/15/19 08/05/19 Unknown History Calcium Acetate 667 mg PO TID 07/15/19 07/15/19 Unknown History Clopidogrel [Plavix] 75 mg PO QDAY 07/15/19 08/05/19 Unknown History Ipratropium (Nf) [Atrovent HFA 2 puff IH Q6HR 07/15/19 07/15/19 Unknown History 17MCG/PUFF] Sertraline [Zoloft] 50 mg PO QDAY 07/15/19 08/05/19 Unknown History carvediloL [Coreg] 12.5 mg PO BID 07/15/19 08/05/19 Unknown History hydrALAZINE [Apresoline TAB] 25 mg PO BID 07/15/19 08/05/19 Unknown History oxyCODONE /ACETAMINOPHEN [Percocet 1 tab PO Q6HR PRN 07/15/19 07/15/19 Unknown History 5/325 mg] Simvastatin 40 mg PO QHS #30 tablet 07/16/19 08/05/19 Unknown Rx Torsemide [Demadex] 20 mg PO DAILY@0600 #30 tablet 07/16/19 Unknown Rx ED Review of Systems ROS: Stated complaint: N/A LETHARGIC Other details as noted in HPI Comment: All other systems reviewed and negative Constitutional: denies: chills, fever Eyes: denies: eye pain ENT: denies: ear pain, throat pain Respiratory: denies: cough, shortness of breath Cardiovascular: denies: chest pain, palpitations Gastrointestinal: nausea, vomiting Genitourinary: denies: dysuria, discharge Skin: denies: rash, lesions Neurological: other (lethargy). denies: headache Physical Exam - Physical Exam Physical Exam: GENERAL: The patient is well-developed well-nourished. HEENT: Normocephalic. Atraumatic. Patient has moist mucous membranes. EYES: Pupils equal and reactive to light bilaterally. NECK: Supple. Trachea is midline CHEST/LUNGS: Clear to auscultation. There is no respiratory distress noted. HEART/CARDIOVASCULAR: Regular. There is no tachycardia. ABDOMEN: Abdomen is soft, nontender. Patient has normal bowel sounds. There is no abdominal distention. SKIN: Skin is warm and dry. NEURO: The patient is very sleepy and lethargic. She is arousable and once aw kyrie she is oriented to person place and time. However she will immediately fall back asleep if not continuously stimulated. Withdraws from painful stimuli. MUSCULOSKELETAL: There is no obvious deformity. There is no evidence of acute injury. ED Course - Consultations Consultation #1: The patient was seen by the telemedicine neurologist, Dr. Macias, immediately after the patient had a CT of the head without contrast. He did his evaluation and did not find any focal deficits and agrees that the patient could be showing signs of some type of metabolic process or could be secondary to sedation from her baclofen. He does not recommend TPA at this time. 08/06/19 03:01 Consultation #2: I spoke to the instrument adjuster executive relations specialist for the heart, Dr. Brady, who agrees with the plan for trending troponins after the patient had a elevated troponin level. No immediate intervention necessary. 08/06/19 03:02 ED Medical Decision Making - Lab Data Result diagrams: 08/05/19 21:09 08/05/19 21:09 - EKG Data -: EKG Interpreted by Me EKG shows normal: sinus rhythm, axis (left axis deviation), intervals, QRS complexes (LVH), ST-T waves Rate: tachycardia (104 bpm) - EKG Data When compared to previous EKG there are: previous EKG unavailable Interpretation: other (sinus tachycardia at 104 bpm, left axis deviation, LVH) - Radiology Data Radiology results: report reviewed, image reviewed interpreted by me: Chest x-ray does not show any pneumonia, pneumothorax, focal consolidation, pleural effusions, or any other acute process. CT head/brain wo con INDICATION / CLINICAL INFORMATION: Stroke symptoms. TECHNIQUE: All CT scans at this location are performed using CT dose reduction for ALARA by means of automated exposure control. COMPARISON: 07/15/2019 F INDINGS: No intracranial hemorrhage or abnormal extra-axial fluid collection. No evidence of territorial infarction or mass effect. The ventricular system and basilar cisterns are normal. Brainstem appears normal. Visualized paranasal sinuses and osseous structures are normal. IMPRESSION: 1. No acute intracranial abnormality. - Medical Decision Making This patient presents with the complaint of nausea and vomiting but appears very sleepy and lethargic. The patient is arousable and once awake she is oriented but will immediately follow back asleep if not stimulated. EMS had reported the patient had some type of change in mental status that occurred within the past hour prior to presentation. For this reason a code stroke was ordered. CT scan of the head without contrast did not show any bleed or large territorial infarct. As per the consultation section, the patient was seen by telemedicine neurology. No TPA and symptoms are more likely to be from a metabolic process or from the patient taking some baclofen without the ability to renally excrete this medication. The patient's labs are mostly unremarkable except for the end- stage renal disease and a positive troponin level. There is no complaint of any chest pain. EKG did not show any ST elevation VT. The patient had a negative stress test 3 months ago. Cardiology was contacted and they agree with the plan for trending troponins. Vital signs stable throughout her ED course including being afebrile. Patient will be admitted hospital for further evaluation and treatment was accepted for admission by the hospitalist, Dr Dean. - Differential Diagnosis CVA, Uremia, Hyperammonemia, Hypoglycemia Critical Care Time: No Critical care attestation.: If time is entered above; I have spent that time in minutes in the direct care of this critically ill patient, excluding procedure time. ED Disposition Clinical Impression: ESRD (end stage renal disease), Intractable nausea and vomiting Altered mental state Qualifiers: Altered mental status type: unspecified Qualified Code(s): R41.82 - Altered mental status, unspecified Disposition: [id number] OP ADMIT IP TO THIS HOSP Is pt being admited?: Yes Condition: Fair Time of Disposition: 23:13
[2019-08-05 21:52] LABS: Alanine Aminotransferase < 5 units/L (7-56)
--- NOTE | 2019-08-05 21:53 | Cat Scan Report ---
CT head/brain wo con INDICATION / CLINICAL INFORMATION: Stroke symptoms. TECHNIQUE: All CT scans at this location are performed using CT dose reduction for ALARA by means of automated e xposure control. COMPARISON: 07/15/2019 FINDINGS: No intracranial hemorrhage or abnormal extra-axial fluid collection. No evidence of territorial infarction or mass effect. The ventricular system and basilar cisterns are normal. Brainstem appears normal. Visualized paranasal sinuses and osseous structures are normal. IMPRESSION: 1. No acute intracranial abnormality. COMMUNICATION: Time of Communication: 2045 Licensed Practitioner Receiving Report: Dr Lopez Signer Name: Allan Patel MD Signed: 08/05/2019 9:49 PM Workstation Name: [id number]
[2019-08-05 22:05] LABS: LDL Cholesterol,Direct 109 mg/dL (50-130)
--- NOTE | 2019-08-05 22:20 | Emergency Department Report ---
ED Neuro Deficit HPI - General Chief Complaint: Nausea/Vomiting/Diarrhea Stated Complaint: N/V LETHARGIC Time Seen by Provider: 08/05/19 20:59 Source: patient, RN/MD, EMS Mode of arrival: Stretcher Limitations: Other - History of Present Illness Initial Comments: [facility] TeleStroke Metrics: LKW: Reportedly 1930 Door Time: 2047 [facility] Contacted: 2057 [facility] at Bedside: 2115 NIHSS: 2130 Decision on Alteplase: Not to give as her presentation is not classic for an acute ischemic stroke. There could be more of an underlying toxic metabolic process occurring. Interventional Candidate: Not a candidate as her symptoms are not consistent with a large vessel proximal occlusion. Chief Complaint: Altered mental status and nausea/vomiting HPI: Asked to see this patient in emergent telemedicine consultation utilizing interactive audio and video technologies. Consultation was performed with assistance of ancillary / medical staff at bedside. Verbal consent to perform the examination with telemedicine was obtained. Patient agreed to proceed with the consultation for acute stroke protocol. 59-year-old right-handed -[place]oz[place] female who was brought to the emergency room by EMS for lethargy, weakness, and nausea and vomiting. Patient currently takes aspirin and Plavix. She reports a history of 3 strokes and 6 TIAs in the past that has left her with some chronic left-sided weakness. Patient also reports a history of possible seizures, but is currently not taking any seizure medications. Review of the medical records showed that the patient had a similar presentation of shortness of breath and fall back on 07/15/2019. She had missed her dialysis. She was subsequently discharged the next day. According to the ER team, EMS was called after family was concerned about the patient having lethargy, weakness, and nausea and vomiting. When EMS initially arrived, she was alert oriented x3. As she was coming into the ER, she became progressively more lethargic. They noted that at baseline, she is alert oriented x3 and is very sharp. Upon initial evaluation by the ER attending, the patient was globally weak but appeared to have more weakness on the left side. She continued to be lethargic. Therefore, a stroke alert was initiated. ER team also reported that family had noted the patient recently taking baclofen within the last 8 hours. Patient also noted that she did not go to dialysis today. Her last dialysis was apparently on Saturday. Upon my examination, the patient was lethargic but arousable. She required repeated stimulation in order to keep her awake for a few minutes. She would quickly fall back asleep. She was able to tell me the year and that she is in the hospital. With appropriate and aggressive stimulation, she was eventually able to lift up her left arm and left leg. She is globally weak symmetrically on the right side and left side. She also has mild slurred speech. Head CT is negative. Blood pressure is elevated in the 190s. Case was discussed with Dr. Lopez of the emergency room. At this point, given the patient's nonfocal exam and clinical history, it was decided not to give the patient IV alteplase as her presentation could be more due to a toxic metabolic process rather than an acute ischemic stroke. PMH: Patient reports 3 strokes and 6 TIAs in the past that has left her with some chronic left-sided weakness; possible seizure disorder; diabetes mellitus; hypertension; hyperlipidemia; depression; COPD; coronary artery disease with prior [place]; end-stage renal disease with hemodialysis on Saturday/Saturday/Saturday. SOC: Negative x3. Patient smoked before in the past. She lives with family. FMH: Significant for hypertension. ROS: 13 point review of systems were reviewed with the patient, and are all negative with the exception of the aforementioned in the history of present illness. VS: Pulse 94, respiration 15, blood pressure 190/91, weight 72 kg Exam: Patient is in no apparent distress. Patient appears as stated age. No obvious acute respiratory or cardiac distress. Patient is well groomed and well-nourished. 1a- LOC: Not keenly responsive - 2 1b- LOC questions: Answers both questions correctly - 0 1c- LOC commands- Performs both tasks correctly- 0 2- Gaze: Normal; no gaze paresis or gaze deviation - 0 3- Visual Alberto: normal, no Visual field deficit - 0 4- Facial movements: no facial palsy - 0 5- Upper limb motor bilateral arm drifts - 4 6- Lower limb motor bilateral leg drifts - 4 7- Limb Coordination: absent ataxia - 0 8- Sensory: no sensory loss - 0 9- Language - No aphasia - 0 10- Speech - Mild dysarthria - 1 11- Neglect / Extinction - none found - 0 NIHSS score: 11 Diagnostic Data: CT of the head showed no acute intracranial process WBC 3.6, hemoglobin 9.2, platelets 139, coagulation studies within normal limits, sodium 140, potassium 3.9, BUN 31, creatinine 6.7, glucose 125 Medical Data Reviewed: 1.Data?reviewed include clinical labs, radiology,?and medical tests; 2.Tests?results discussed w/performing or interpreting physician; 3.Obtaining/reviewing old medical records; 4.Obtaining?case history from another source; 5.Independent?review of image, tracing, or specimen. Medical Decision Making: - Extensive number of diagnosis or management options are considered below. - Extensive amount of complex data reviewed. - High risk of complication and/or morbidity or mortality are associated with differential diagnostic considerations below. - There may be?uncertain?outcome and increased probability of prolonged functional impairment or high probability of severe prolonged functional impairment associated with some of these differential diagnosis. Differential Diagnosis for Stroke: 1.?Cardioembolic?stroke 2. Small vessel disease/lacune 3. Thromboembolic, [id number] mechanism 4.?Hypercoagulable?state-related infarct 5. Transient ischemic attack 6. Thrombotic mechanism, large artery disease Assessment: 1. Altered mental status 2. End-stage renal disease 3. Hypertension 4. Chronic systolic congestive heart failure 5. COPD 6. Coronary artery disease with prior [place] 7. Hyperlipidemia 8. Depression 9. Diabetes mellitus 10. Prior stroke and TIAs 11. Possible seizure disorder Recommendations: Patient can be admitted to the hospital for further work-up of her symptoms. To consider the possibility of baclofen toxicity as family noted she did take some baclofen today. Patient's lethargy could be due to her baclofen in the setting of her end-stage renal disease. She also did not go to dialysis today. Check MRI brain without contrast to rule out any acute intracranial process. Check echocardiogram to gauge her cardiac function. Maintain the patient on telemetry to look for paroxysmal atrial fibrillation. Check carotid ultrasound. Continue the patient on a baby aspirin and Plavix. Further metabolic and infectious work-up per primary team. Continue supportive care. Plan of care was discussed with the patient. Thank you for allowing [facility] to participate in the care of your patient. Please call me, Dr. Macias, with any questions at [phone]. Case discussed with the ER staff and Dr. Lopez. Critical Care notation: I was called to see this critical patient emergently. I personally evaluated this critical patient for acute stroke evaluation, and determining their eligibility for IV Alteplase and interventional therapies. I have spent approximately 35 minutes with the patient, including time at bedside, time discussing the case with other physicians, reviewing plan of care, and time independently reviewing the records and scans. - Related Data Home Medications: Home Medications Medication Instructions Recorded Confirmed Last Taken Aspirin EC [Halfprin EC] 81 mg PO QDAY 07/15/19 08/05/19 Unknown Calcium Acetate 667 mg PO TID 07/15/19 07/15/19 Unknown Clopidogrel [Plavix] 75 mg PO QDAY 07/15/19 08/05/19 Unknown Ipratropium (Nf) [Atrovent HFA 2 puff IH Q6HR 07/15/19 07/15/19 Unknown 17MCG/PUFF] Sertraline [Zoloft] 50 mg PO QDAY 07/15/19 08/05/19 Unknown carvediloL [Coreg] 12.5 mg PO BID 07/15/19 08/05/19 Unknown hydrALAZINE [Apresoline TAB] 25 mg PO BID 07/15/19 08/05/19 Unknown oxyCODONE /ACETAMINOPHEN [Percocet 1 tab PO Q6HR PRN 07/15/19 07/15/19 Unknown 5/325 mg] Previous Rx's Medication Instructions Recorded Last Taken Type Simvastatin 40 mg PO QHS #30 tablet 07/16/19 Unknown Rx Torsemide [Demadex] 20 mg PO DAILY@0600 #30 tablet 07/16/19 Unknown Rx Allergies/Adverse Reactions: Allergies Allergy/AdvReac Type Severity Reaction Status Date / Time No Known Allergies Allergy Unverified 10/09/15 20:10 ED Review of Systems ROS: Stated complaint: N/A LETHARGIC Other details as noted in HPI Constitutional: denies: chills, fever Eyes: denies: eye pain ENT: denies: ear pain, throat pain Respiratory: denies: cough, shortness of breath Cardiovascular: denies: chest pain, palpitations Gastrointestinal: nausea, vomiting Genitourinary: denies: dysuria, discharge Skin: denies: rash, lesions Neurological: other (lethargy). denies: headache ED Past Medical Hx - Past Medical History Previous Medical History?: Yes Hx Hypertension: Yes Hx CVA: Yes (x4, 8 TIAs) Hx Heart Attack/AMI: Yes (2017) Hx Congestive Heart Failure: Yes Hx Diabetes: Yes Hx Liver Disease: No Hx Renal Disease: Yes Hx Arthritis: Yes Hx Headaches / Migraines: Yes Hx Seizures: Yes Hx Asthma: Yes Hx COPD: Yes (inhalers prn) Hx HIV: No - Surgical History Past Surgical History?: Yes Hx Coronary Stent: Yes (x 3) Hx Pacemaker: No Hx Internal Defibrillator: No Hx Breast Surgery: Yes (reduction (1979)) Additional Surgical History: breast reduction 1979, av fistula left arm - Social History Smoking Status: Unknown if ever smoked Substance Use Type: None - Medications Home Medications: Home Medications Medication Instructions Recorded Confirmed Last Taken Type Aspirin EC [Halfprin EC] 81 mg PO QDAY 07/15/19 08/05/19 Unknown History Calcium Acetate 667 mg PO TID 07/15/19 07/15/19 Unknown History Clopidogrel [Plavix] 75 mg PO QDAY 07/15/19 08/05/19 Unknown History Ipratropium (Nf) [Atrovent HFA 2 puff IH Q6HR 07/15/19 07/15/19 Unknown History 17MCG/PUFF] Sertraline [Zoloft] 50 mg PO QDAY 07/15/19 08/05/19 Unknown History carvediloL [Coreg] 12.5 mg PO BID 07/15/19 08/05/19 Unknown History hydrALAZINE [Apresoline TAB] 25 mg PO BID 07/15/19 08/05/19 Unknown History oxyCODONE /ACETAMINOPHEN [Percocet 1 tab PO Q6HR PRN 07/15/19 07/15/19 Unknown History 5/325 mg] Simvastatin 40 mg PO QHS #30 tablet 07/16/19 08/05/19 Unknown Rx Torsemide [Demadex] 20 mg PO DAILY@0600 #30 tablet 07/16/19 Unknown Rx ED Neuro Physical Exam - General Limitations: Other Suspected Stroke: No - Lab Data Result diagrams: 08/05/19 21:09 08/05/19 21:09 Lab Results 08/05/19 08/05/19 08/05/19 Range/Units 21:09 21:09 21:09 WBC 3.6 L (4.5-11.0) K/mm3 RBC 3.99 (3.65-5.03) M/mm3 Hgb 11.2 (10.1-14.3) gm/dl Hct 35.5 (30.3-42.9) % MCV 89 (79-97) fl MCH 28 (28-32) pg MCHC 32 (30-34) % RDW 18.2 H (13.2-15.2) % Plt Count 139 L (140-440) K/mm3 Lymph % (Auto) 9.1 L (13.4-35.0) % [place] % (Auto) 8.8 H (0.0-7.3) % Eos % (Auto) 3.1 (0.0-4.3) % Baso % (Auto) 0.6 (0.0-1.8) % Lymph # 0.3 L (1.2-5.4) K/mm3 [place] # 0.3 (0.0-0.8) K/mm3 Eos # 0.1 (0.0-0.4) K/mm3 Baso # 0.0 (0.0-0.1) K/mm3 Seg Neutrophils % 78.4 H (40.0-70.0) % Seg Neutrophils # 2.9 (1.8-7.7) K/mm3 PT 14.6 (12.2-14.9) Sec. INR 1.12 (0.87-1.13) APTT 30.8 (24.2-36.6) Sec. Sodium 140 (137-145) mmol/L Potassium 3.9 (3.6-5.0) mmol/L Chloride 95.6 L (98-107) mmol/L Carbon Dioxide 26 (22-30) mmol/L Anion Gap 22 mmol/L BUN 31 H (7-17) mg/dL Creatinine 6.7 H (0.7-1.2) mg/dL Estimated GFR 8 ml/min BUN/Creatinine Ratio 5 % Glucose 125 H (65-100) mg/dL Lactic Acid (0.7-2.0) mmol/L Calcium 9.7 (8.4-10.2) mg/dL Total Bilirubin 0.50 (0.1-1.2) mg/dL AST 12 (5-40) units/L ALT < 5 L (7-56) units/L Alkaline Phosphatase 77 (35-129) units/L Ammonia (25-60) umol/L Total Creatine Kinase 41 (30-135) units/L CK-MB (CK-2) 2.6 (0.0-4.0) ng/mL CK-MB (CK-2) Rel Index 6.3 H (0-4) Troponin T 0.178 H* (0.00-0.029) ng/mL Total Protein 7.9 (6.3-8.2) g/dL Albumin 4.2 (3.9-5) g/dL Albumin/Globulin Ratio 1.1 % Triglycerides 146 (2-149) mg/dL Cholesterol 178 (50-199) mg/dL LDL Cholesterol Direct 109 (50-130) mg/dL TSH (0.270-4.200) mlU/mL 08/05/19 08/05/19 08/05/19 Range/Units 21:09 21:09 21:09 WBC (4.5-11.0) K/mm3 RBC (3.65-5.03) M/mm3 Hgb (10.1-14.3) gm/dl Hct (30.3-42.9) % MCV (79-97) fl MCH (28-32) pg MCHC (30-34) % RDW (13.2-15.2) % Plt Count (140-440) K/mm3 Lymph % (Auto) (13.4-35.0) % [place] % (Auto) (0.0-7.3) % Eos % (Auto) (0.0-4.3) % Baso % (Auto) (0.0-1.8) % Lymph # (1.2-5.4) K/mm3 [place] # (0.0-0.8) K/mm3 Eos # (0.0-0.4) K/mm3 Baso # (0.0-0.1) K/mm3 Seg Neutrophils % (40.0-70.0) % Seg Neutrophils # (1.8-7.7) K/mm3 PT (12.2-14.9) Sec. INR (0.87-1.13) APTT (24.2-36.6) Sec. Sodium (137-145) mmol/L Potassium (3.6-5.0) mmol/L Chloride (98-107) mmol/L Carbon Dioxide (22-30) mmol/L Anion Gap mmol/L BUN (7-17) mg/dL Creatinine (0.7-1.2) mg/dL Estimated GFR ml/min BUN/Creatinine Ratio % Glucose (65-100) mg/dL Lactic Acid 0.90 (0.7-2.0) mmol/L Calcium (8.4-10.2) mg/dL Total Bilirubin (0.1-1.2) mg/dL AST (5-40) units/L ALT (7-56) units/L Alkaline Phosphatase (35-129) units/L Ammonia 46.0 (25-60) umol/L Total Creatine Kinase (30-135) units/L CK-MB (CK-2) (0.0-4.0) ng/mL CK-MB (CK-2) Rel Index (0-4) Troponin T (0.00-0.029) ng/mL Total Protein (6.3-8.2) g/dL Albumin (3.9-5) g/dL Albumin/Globulin Ratio % Triglycerides (2-149) mg/dL Cholesterol (50-199) mg/dL LDL Cholesterol Direct (50-130) mg/dL TSH 4.530 H (0.270-4.200) mlU/mL Critical care attestation.: If time is entered above; I have spent that time in minutes in the direct care o f this critically ill patient, excluding procedure time. ED Disposition Clinical Impression: Altered mental state Disposition: OP ADMIT IP TO THIS HOSP Is pt being admited?: Yes Does the pt Need Aspirin: Yes Condition: Stable Referrals: LB LUCIO MD [Primary Care Provider] - 3-5 Days
[2019-08-06] MEDS ORDERED: ACETAMINOPHEN 325 MG TAB PO PRN (00:25)
[2019-08-06] MEDS ORDERED: MORPHINE 2 MG/1 ML INJ IV PRN ×2 (00:25)
[2019-08-06] MEDS ORDERED: MAGNESIUM HYDROXIDE (MOM) ORAL LIQD UDC PO PRN (00:25)
[2019-08-06] MEDS ORDERED: DEXTROSE 50% IN WATER (25GM) 50 ML SYRINGE IV PRN (00:25)
[2019-08-06] MEDS ORDERED: NITROGLYCERIN 0.4 MG TAB SUBL SL PRN (00:25)
--- NOTE | 2019-08-06 01:34 | History and Physical Report ---
History of Present Illness Date of examination: 08/05/19 Date of admission: 08/05/19 23:14 Chief complaint: Nausea and vomiting History of present illness: 59-year-old -Maldivian female with known history of end-stage renal disease on dialysis Saturday and Saturday was brought into the emergency room today with complaints of nausea and vomiting. Patient appears confused and could not give a very good history because of her mental status. She has been lethargic, there has been no history of fever or chills, there has been no history of chest pain. She has not had a dialysis since Saturday. There is remote history that she took some baclofen for chronic back pain. Family members were not available during the course of this history and physical. Past History Past Medical History: arthritis, COPD, diabetes, dialysis, ESRD, heart failure, stroke Past Surgical History: Other (Breast reduction, coronary stent placement, AV fistula placement in the left arm) Social history: no significant social history Family history: no significant family history Medications and Allergies Allergies Allergy/AdvReac Type Severity Reaction Status Date / Time No Known Allergies Allergy Unverified 10/09/15 20:10 Home Medications Medication Instructions Recorded Confirmed Last Taken Type Aspirin EC [Halfprin EC] 81 mg PO QDAY 07/15/19 08/05/19 Unknown History Calcium Acetate 667 mg PO TID 07/15/19 07/15/19 Unknown History Clopidogrel [Plavix] 75 mg PO QDAY 07/15/19 08/05/19 Unknown History Ipratropium (Nf) [Atrovent HFA 2 puff IH Q6HR 07/15/19 07/15/19 Unknown History 17MCG/PUFF] Sertraline [Zoloft] 50 mg PO QDAY 07/15/19 08/05/19 Unknown History carvediloL [Coreg] 12.5 mg PO BID 07/15/19 08/05/19 Unknown History hydrALAZINE [Apresoline TAB] 25 mg PO BID 07/15/19 08/05/19 Unknown History oxyCODONE /ACETAMINOPHEN [Percocet 1 tab PO Q6HR PRN 07/15/19 07/15/19 Unknown History 5/325 mg] Simvastatin 40 mg PO QHS #30 tablet 07/16/19 08/05/19 Unknown Rx Torsemide [Demadex] 20 mg PO DAILY@0600 #30 tablet 07/16/19 Unknown Rx Active Meds: Active Medications Acetaminophen (Tylenol) 650 mg PO Q4H PRN PRN Reason: Pain MILD(1-3)/Fever >100.5/MCDANIEL Aspirin (Ecotrin) 325 mg PO QDAY [facility] Dextrose (D50w (25gm) Syringe) 50 ml IV Q30MIN PRN; Protocol PRN Reason: Hypoglycemia Insulin Human Lispro (Humalog) 0 unit SUB-Q ACHS LENCHO; Protocol Magnesium Hydroxide (Milk Of Magnesia) 30 ml PO Q4H PRN PRN Reason: Constipation Morphine Sulfate (Morphine) 2 mg IV Q5MIN PRN PRN Reason: Chest Pain unrelieved by NTG Morphine Sulfate (Morphine) 2 mg IV Q4H PRN PRN Reason: Pain, Moderate (4-6) Nitroglycerin (Nitrostat) 0.4 mg SL Q5M PRN PRN Reason: Chest Pain Ondansetron HCl (Zofran) 4 mg IV Q8H PRN PRN Reason: Nausea And Vomiting Sodium Chloride (Sodium Chloride Flush Syringe 10 Ml) 10 ml IV PRN PRN PRN Reason: LINE FLUSH Sodium Chloride (Sodium Chloride Flush Syringe 10 Ml) 10 ml IV BID LENCHO Sodium Chloride (Sodium Chloride Flush Syringe 10 Ml) 10 ml IV PRN PRN PRN Reason: LINE FLUSH Review of Systems ROS unobtainable: due to mental status Gastrointestinal: abdominal pain, nausea, vomiting Exam - Constitutional Vitals: Temp Pulse Resp BP Pulse Ox 84 13 167/83 93 08/06/19 00:15 08/06/19 00:15 08/06/19 00:15 08/06/19 00:15 General appearance: Present: no acute distress, well-nourished - EENT Eyes: Present: PERRL, EOM intact ENT: hearing intact, clear oral mucosa, dentition normal - Neck Neck: Present: supple, normal ROM - Respiratory Respiratory effort: normal Respiratory: bilateral: CTA - Cardiovascular Rhythm: regular Heart Sounds: Present: S1 & S2 - Extremities Extremities: no ischemia, pulses intact, pulses symmetrical, No edema, Full ROM Peripheral Pulses: within normal limits - Abdominal General gastrointestinal: Present: soft, non-tender, non-distended - Integumentary Integumentary: Present: clear, warm, dry - Musculoskeletal Musculoskeletal: strength equal bilaterally - Psychiatric Psychiatric: appropriate mood/affect, cooperative, other (Appears slightly confused) - Neurologic Neurologic: CNII-XII intact, moves all extremities Results - Labs CBC & Chem 7: 08/05/19 21:09 08/05/19 21:09 Labs: Abnormal lab results 08/05/19 08/05/19 08/05/19 Range/Units 21:09 21:09 21:09 WBC 3.6 L (4.5-11.0) K/mm3 RDW 18.2 H (13.2-15.2) % Plt Count 139 L (140-440) K/mm3 Lymph % (Auto) 9.1 L (13.4-35.0) % [place] % (Auto) 8.8 H (0.0-7.3) % Lymph # 0.3 L (1.2-5.4) K/mm3 Seg Neutrophils % 78.4 H (40.0-70.0) % Chloride 95.6 L (98-107) mmol/L BUN 31 H (7-17) mg/dL Creatinine 6.7 H (0.7-1.2) mg/dL Glucose 125 H (65-100) mg/dL ALT < 5 L (7-56) units/L CK-MB (CK-2) Rel Index 6.3 H (0-4) Troponin T 0.178 H* (0.00-0.029) ng/mL TSH 4.530 H (0.270-4.200) mlU/mL Assessment and Plan - Patient Problems (1) Altered mental state Current Visit: Yes Status: Acute Qualifiers: Altered mental status type: unspecified Qualified Code(s): R41.82 - Altered mental status, unspecified (2) ESRD (end stage renal disease) Current Visit: Yes Status: Acute Plan to address problem: We will place a consult to nephrology for dialysis. (3) Intractable nausea and vomiting Current Visit: Yes Status: Acute Plan to address problem: Etiology is unclear however patient has been placed on IV Zofran as needed. (4) Elevated troponin Current Visit: No Status: Acute Plan to address problem: Patient has chronically elevated troponin. There has been no EKG changes. Results were discussed with the on-call cultural historian by the ER physician and recommendation is to trend the troponin levels. (5) Hypertension Current Visit: No Status: Chronic Qualifiers: Hypertension type: essential hypertension Qualified Code(s): I10 - Esse ntial (primary) hypertension Plan to address problem: We will monitor vital signs closely and continue routine home medications. 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 (7) DVT prophylaxis Current Visit: No Status: Acute Plan to address problem: Patient placed on subcutaneous heparin. (8) Full code status Current Visit: Yes Status: Acute
[2019-08-06 05:43] LABS: Chol/HDL Ratio 4.04 %; HDL Cholesterol 44 mg/dL (40-59)
[2019-08-06] MEDS: ONDANSETRON 4 MG/2 ML INJ IV PRN ×2 (06:55→23:06)
[2019-08-06] MEDS ORDERED: CALCIUM ACETATE 667 MG PO SCH (08:00)
[2019-08-06 10:17] LABS: Calcium 9.7 mg/dL (8.4-10.2)
--- NOTE | 2019-08-06 10:50 | Consultation ---
History of Present Illness - Reason for Consult end stage renal disease - History of Present Illness 59-year-old lady with medical history significant for end-stage renal disease on hemodialysis Saturday via a left arm AV fistula admitted with confusion and there was some concern that she had taken baclofen. Apparently has also missed dialysis Review of systems unobtainable as patient is confused Past History Past Medical History: arthritis, COPD, diabetes, dialysis, ESRD, heart failure, stroke Past Surgical History: Other (Breast reduction, coronary stent placement, AV fistula placement in the left arm) Social history: no significant social history Family history: no significant family history Medications and Allergies Allergies Allergy/AdvReac Type Severity Reaction Status Date / Time No Known Allergies Allergy Unverified 10/09/15 20:10 Home Medications Medication Instructions Recorded Confirmed Last Taken Type Aspirin EC [Halfprin EC] 81 mg PO QDAY 07/15/19 08/05/19 Unknown History Calcium Acetate 667 mg PO TID 07/15/19 07/15/19 Unknown History Clopidogrel [Plavix] 75 mg PO QDAY 07/15/19 08/05/19 Unknown History Ipratropium (Nf) [Atrovent HFA 2 puff IH Q6HR 07/15/19 07/15/19 Unknown History 17MCG/PUFF] Sertraline [Zoloft] 50 mg PO QDAY 07/15/19 08/05/19 Unknown History carvediloL [Coreg] 12.5 mg PO BID 07/15/19 08/05/19 Unknown History hydrALAZINE [Apresoline TAB] 25 mg PO BID 07/15/19 08/05/19 Unknown History oxyCODONE /ACETAMINOPHEN [Percocet 1 tab PO Q6HR PRN 07/15/19 07/15/19 Unknown History 5/325 mg] Simvastatin 40 mg PO QHS #30 tablet 07/16/19 08/05/19 Unknown Rx Torsemide [Demadex] 20 mg PO DAILY@0600 #30 tablet 07/16/19 Unknown Rx Active Meds: Active Medications Acetaminophen (Tylenol) 650 mg PO Q4H PRN PRN Reason: Pain MILD(1-3)/Fever >100.5/MCDANIEL Aspirin (Halfprin Ec) 81 mg PO QDAY [facility] Calcium Acetate (Phoslo) 667 mg PO TIDWM [facility] Carvedilol (Coreg) .5 mg PO BID [facility] Clopidogrel Bisulfate (Plavix) 75 mg PO QDAY [facility] Dextrose (D50w (25gm) Syringe) 50 ml IV Q30MIN PRN; Protocol PRN Reason: Hypoglycemia Heparin Sodium (Porcine) (Heparin) 5,000 unit SUB-Q Q8HR [facility] Hydralazine HCl (Apresoline) 25 mg PO BID [facility] Insulin Human Lispro (Humalog) 0 unit SUB-Q ACHS [facility]; Protocol Magnesium Hydroxide (Milk Of Magnesia) 30 ml PO Q4H PRN PRN Reason: Constipation Morphine Sulfate (Morphine) 2 mg IV Q5MIN PRN PRN Reason: Chest Pain unrelieved by NTG Morphine Sulfate (Morphine) 2 mg IV Q4H PRN PRN Reason: Pain, Moderate (4-6) Nitroglycerin (Nitrostat) 0.4 mg SL Q5M PRN PRN Reason: Chest Pain Ondansetron HCl (Zofran) 4 mg IV Q8H PRN PRN Reason: Nausea And Vomiting Last Admin: 08/06/19 06:55 Dose: 4 mg Documented by: Pravastatin Sodium (Pravachol) 80 mg PO QHS [facility] Sertraline HCl (Zoloft) 50 mg PO QDAY [facility] Sodium Chloride (Sodium Chloride Flush Syringe 10 Ml) 10 ml IV PRN PRN PRN Reason: LINE FLUSH Sodium Chloride (Sodium Chloride Flush Syringe 10 Ml) 10 ml IV BID [facility] Review of Systems ROS unobtainable: due to mental status Exam - Vital Signs Vital signs: Vital Signs Resp Pulse Ox 18 97 08/05/19 21:04 08/05/19 21:04 - General Appearance General appearance: chronically ill, frail EENT: ATNC, PERRL, mucous membranes dry Respiratory: Clear to Ascultation Heart: regular Gastrointestinal: Present: normal, normoactive bowel sounds Neurologic: alert and oriented x3, CN 3-12 intact Psychiatric: mood/affect appropriate Results - Lab Results 08/05/19 21:09 08/06/19 09:06 Most recent lab results Calcium 9.7 mg/dL (8.4-10.2) 08/06/19 09:06 Assessment and Plan - Patient Problems (1) ESRD needing dialysis Current Visit: No Status: Acute Plan to address problem: end-stage renal disease We'll initiate dialysis (2) Type 2 diabetes mellitus Onset Date: 04/03/16 Current Visit: No Status: Chronic Qualifiers: Diabetes mellitus 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
--- NOTE | 2019-08-06 13:20 | Consultation ---
History of Present Illness Consult date: 08/06/19 Consult reason: elevated troponin History of present illness: Patient is a 59-year-old woman with end-stage renal disease on hemodialysis. She was admitted to this hospital with chief complaints of persistent nausea and vomiting and weakness. In the emergency room, she was reported as have been actively vomiting. There was no chest pain, no shortness of breath, no palpitations, no lower extremity edema. No active cardiac complaints. Cardiology consultation was requested for the finding of an isolated, mild increase in troponin level of 0.17. On review of the patient's records, the troponin has been persistently elevated at a similar level on all hospital visits since 2016. The patient's creatinine is 6.7, end-stage renal disease on hemodialysis. Previous cardiac workup includes a recent Lexiscan thallium stress test done just 4 months ago, reported negative. Prior to that an echocardiogram in January 2016 showed well preserved left ventricle systolic function with ejection fraction 55-60%. ECG on presentation showed normal sinus rhythm, with left ventricular hypertrophy by voltage criteria, with mild repolarization T-wave abnormalities. Past History Past Medical History: arthritis, COPD, diabetes, dialysis, ESRD, heart failure, hypertension, stroke Past Surgical History: Other (Breast reduction, coronary stent placement, AV fistula placement in the left arm) Social history: no significant social history Family history: no significant family history Medications and Allergies Allergies Allergy/AdvReac Type Severity Reaction Status Date / Time No Known Allergies Allergy Unverified 10/09/15 20:10 Home Medications Medication Instructions Recorded Confirmed Last Taken Type Aspirin EC [Halfprin EC] 81 mg PO QDAY 07/15/19 08/05/19 Unknown History Calcium Acetate 667 mg PO TID 07/15/19 07/15/19 Unknown History Clopidogrel [Plavix] 75 mg PO QDAY 07/15/19 08/05/19 Unknown History Ipratropium (Nf) [Atrovent HFA 2 puff IH Q6HR 07/15/19 07/15/19 Unknown History 17MCG/PUFF] Sertraline [Zoloft] 50 mg PO QDAY 07/15/19 08/05/19 Unknown History carvediloL [Coreg] 12.5 mg PO BID 07/15/19 08/05/19 Unknown History hydrALAZINE [Apresoline TAB] 25 mg PO BID 07/15/19 08/05/19 Unknown History oxyCODONE /ACETAMINOPHEN [Percocet 1 tab PO Q6HR PRN 07/15/19 07/15/19 Unknown History 5/325 mg] Simvastatin 40 mg PO QHS #30 tablet 07/16/19 08/05/19 Unknown Rx Torsemide [Demadex] 20 mg PO DAILY@0600 #30 tablet 07/16/19 Unknown Rx Active Meds: Active Medications Acetaminophen (Tylenol) 650 mg PO Q4H PRN PRN Reason: Pain MILD(1-3)/Fever >100.5/MCDANIEL Aspirin (Halfprin Ec) 81 mg PO QDAY [facility] Calcium Acetate (Phoslo) 667 mg PO TIDWM [facility] Carvedilol (Coreg) 12.5 mg PO BID [facility] Clopidogrel Bisulfate (Plavix) 75 mg PO QDAY [facility] Dextrose (D50w (25gm) Syringe) 50 ml IV Q30MIN PRN; Protocol PRN Reason: Hypoglycemia Heparin Sodium (Porcine) (Heparin) 5,000 unit SUB-Q Q8HR [facility] Hydralazine HCl (Apresoline) 25 mg PO BID [facility] Insulin Human Lispro (Humalog) 0 unit SUB-Q ACHS [facility]; Protocol Magnesium Hydroxide (Milk Of Magnesia) 30 ml PO Q4H PRN PRN Reason: Constipation Morphine Sulfate (Morphine) 2 mg IV Q5MIN PRN PRN Reason: Chest Pain unrelieved by NTG Morphine Sulfate (Morphine) 2 mg IV Q4H PRN PRN Reason: Pain, Moderate (4-6) Nitroglycerin (Nitrostat) 0.4 mg SL Q5M PRN PRN Reason: Chest Pain Ondansetron HCl (Zofran) 4 mg IV Q8H PRN PRN Reason: Nausea And Vomiting Last Admin: 08/06/19 06:55 Dose: 4 mg Documented by: Pravastatin Sodium (Pravachol) 80 mg PO QHS [facility] Sertraline HCl (Zoloft) 50 mg PO QDAY [facility] Sodium Chloride (Sodium Chloride Flush Syringe 10 Ml) 10 ml IV PRN PRN PRN Reason: LINE FLUSH Sodium Chloride (Sodium Chloride Flush Syringe 10 Ml) 10 ml IV BID [facility] Review of Systems Cardiovascular: no chest pain, no orthopnea, no palpitations, no rapid/irregular heart beat, no edema, no syncope, no lightheadedness, no shortness of breath Physical Examination Vital Signs Resp Pulse Ox 18 97 08/05/19 21:04 08/05/19 21:04 General appearance: no acute distress HEENT: Positive: PERRL Neck: Positive: neck supple Cardiac: Positive: Reg Rate and Rhythm Lungs: Positive: Decreased Breath Sounds Neuro: Positive: Grossly Intact, Weakness Abdomen: Positive: Soft Female genitourinary: deferred Extremities: Absent: normal Results 08/05/19 21:09 08/06/19 09:06 Cardiac Enzymes 08/05/19 Range/Units 21:09 AST 12 (5-40) units/L CK-MB (CK-2) 2.6 (0.0-4.0) ng/mL Coagulation 08/05/19 Range/Units 21:09 PT 14.6 (12.2-14.9) Sec. INR 1.12 (0.87-1.13) APTT 30.8 (24.2-36.6) Sec. Lipids 08/05/19 Range/Units 21:09 Triglycerides 146 (2-149) mg/dL Cholesterol 178 (50-199) mg/dL HDL Cholesterol 44 (40-59) mg/dL Cholesterol/HDL Ratio 4.04 % CBC 08/05/19 Range/Units 21:09 WBC 3.6 L (4.5-11.0) K/mm3 RBC 3.99 (3.65-5.03) M/mm3 Hgb 11.2 (10.1-14.3) gm/dl Hct 35.5 (30.3-42.9) % Plt Count 139 L (140-440) K/mm3 Lymph # 0.3 L (1.2-5.4) K/mm3 [place] # 0.3 (0.0-0.8) K/mm3 Eos # 0.1 (0.0-0.4) K/mm3 Baso # 0.0 (0.0-0.1) K/mm3 Comprehensive Metabolic Panel 08/05/19 08/06/19 Range/Units 21:09 09:06 Sodium 140 145 (137-145) mmol/L Potassium 3.9 4.5 (3.6-5.0) mmol/L Chloride 95.6 L 96.5 L (98-107) mmol/L Carbon Dioxide 26 26 (22-30) mmol/L BUN 31 H 38 H (7-17) mg/dL Creatinine 6.7 H 7.5 H (0.7-1.2) mg/dL Glucose 125 H 90 (65-100) mg/dL Calcium 9.7 9.7 (8.4-10.2) mg/dL AST 12 (5-40) units/L ALT < 5 L (7-56) units/L Alkaline Phosphatase 77 (35-129) units/L Total Protein 7.9 (6.3-8.2) g/dL Albumin 4.2 (3.9-5) g/dL EKG interpretations - Telemetry EKG Rhythm: Sinus Rhythm Assessment and Plan - Patient Problems (1) Elevated troponin Current Visit: Yes Status: Acute Plan to address problem: Patient has a chronic mild elevation in troponin levels, likely due to underlying end-stage renal disease. On this presentation with nausea and vomiting, there are no cardiac complaints and no active clinical cardiac issues. No further cardiac workup is indicated, we'll follow intermittently.
--- NOTE | 2019-08-06 14:29 | Progress Note ---
Assessment and Plan / Acute toxic encephalopathy senia from baclofen, cont to provide supportive care /ESRD (end stage renal disease) placed a consult to nephrology for dialysis - HD today / Intractable nausea and vomiting Etiology is unclear however patient has been placed on IV Zofran as needed. GI consulted / Elevated troponin Patient has chronically elevated troponin. There has been no EKG changes. Results were discussed with the on-call weekend caregiver by the ER physician and recommendation is to trend the troponin levels. / Hypertension We will monitor vital signs closely and continue routine home medications. / Type 2 diabetes mellitus We will monitor Accu-Cheks. /DVT prophylaxis Patient placed on subcutaneous heparin. / Full code status Subjective Date of service: 08/06/19 Interval history: patient sen and examined appears lethargic, does not respond Objective - Exam Narrative Exam: General appearance: Present: no acute distress, sleepy - EENT Eyes: Present: PERRL, EOM intact ENT: hearing intact, clear oral mucosa, dentition normal - Neck Neck: Present: supple, normal ROM - Respiratory Respiratory effort: normal Respiratory: bilateral: CTA - Cardiovascular Rhythm: regular Heart Sounds: Present: S1 & S2 - Extremities Extremities: no ischemia, pulses intact, pulses symmetrical, No edema, Full ROM Peripheral Pulses: within normal limits - Abdominal General gastrointestinal: Present: soft, non-tender, non-distended - Integumentary Integumentary: Present: clear, warm, dry - Musculoskeletal Musculoskeletal: strength equal bilaterally - Psychiatric Psychiatric: unable to assess - Neurologic Neurologic: moves all extremities, drowsy - Constitutional Vitals: Vital Signs - 12hr 08/06/19 08/06/19 08/06/19 02:34 03:01 05:05 Temperature 98 F Pulse Rate 75 78 Respiratory 20 Rate Blood Pressure Blood Pressure 208/96 [Left] Blood Pressure [Right] O2 Sat by Pulse 98 94 Oximetry 08/06/19 08/06/19 08/06/19 06:20 08:23 10:00 Temperature 98.2 F Pulse Rate 72 70 Respiratory 18 Rate Blood Pressure Blood Pressure [Left] Blood Pressure 188/92 170/71 [Right] O2 Sat by Pulse 99 Oximetry 08/06/19 14:00 Temperature Pulse Rate 84 Respiratory Rate Blood Pressure 125/80 Blood Pressure [Left] Blood Pressure [Right] O2 Sat by Pulse Oximetry - Labs CBC & Chem 7: 08/07/19 07:23 08/06/19 09:06 Labs: Abnormal lab results 08/05/19 08/05/19 08/05/19 Range/Units 21:09 21:09 21:09 WBC 3.6 L (4.5-11.0) K/mm3 RDW 18.2 H (13.2-15.2) % Plt Count 139 L (140-440) K/mm3 Lymph % (Auto) 9.1 L (13.4-35.0) % [place] % (Auto) 8.8 H (0.0-7.3) % Lymph # 0.3 L (1.2-5.4) K/mm3 Seg Neutrophils % 78.4 H (40.0-70.0) % Chloride 95.6 L (98-107) mmol/L BUN 31 H (7-17) mg/dL Creatinine 6.7 H (0.7-1.2) mg/dL Glucose 125 H (65-100) mg/dL ALT < 5 L (7-56) units/L CK-MB (CK-2) Rel Index 6.3 H (0-4) Troponin T 0.178 H* (0.00-0.029) ng/mL TSH 4.530 H (0.270-4.200) mlU/mL 08/06/19 08/06/19 Range/Units 09:06 09:06 WBC (4.5-11.0) K/mm3 RDW (13.2-15.2) % Plt Count (140-440) K/mm3 Lymph % (Auto) (13.4-35.0) % [place] % (Auto) (0.0-7.3) % Lymph # (1.2-5.4) K/mm3 Seg Neutrophils % (40.0-70.0) % Chloride 96.5 L (98-107) mmol/L BUN 38 H (7-17) mg/dL Creatinine 7.5 H (0.7-1.2) mg/dL Glucose (65-100) mg/dL ALT (7-56) units/L CK-MB (CK-2) Rel Index (0-4) Troponin T 0.172 H* (0.00-0.029) ng/mL TSH (0.270-4.200) mlU/mL
[2019-08-06] MEDS ORDERED: NON-FORMULARY EACH (Simvastatin [Simvastatin] 40 MG) PO SCH (22:00)
[2019-08-06] MEDS: INSULIN LISPRO 100 UNIT/ML SUB-Q SCH (22:07)
[2019-08-06] MEDS ORDERED: PANTOPRAZOLE 80 MG in SODIUM CHLORIDE 0.9% 100 ML IV SCH (23:45)
[2019-08-07] MEDS: HEPARIN 5,000 UNIT/1 ML VIAL SUB-Q SCH ×3 (00:47→21:52)
[2019-08-07] MEDS: hydrALAZINE 25 MG TAB PO SCH ×4 (01:47→21:54)
[2019-08-07] MEDS: carvediloL 12.5 MG TAB PO SCH ×3 (01:48→21:53)
[2019-08-07] MEDS: PRAVASTATIN 80 MG TAB PO SCH ×2 (01:49→21:51)
[2019-08-07] MEDS: CALCIUM ACETATE 667 MG CAP PO SCH ×4 (08:35→18:13)
[2019-08-07] MEDS: INSULIN LISPRO 100 UNIT/ML SUB-Q SCH ×4 (08:35→21:53)
[2019-08-07 08:44] LABS: Basophils % (Auto) 0.5 % (0.0-1.8); Eosinophils # (Auto) 0.1 K/mm3 (0.0-0.4); Eosinophils % (Auto) 2.8 % (0.0-4.3); Hematocrit 32.7 % (30.3-42.9); Hemoglobin 10.4 gm/dl (10.1-14.3); Lymphocytes # (Auto) 0.5 K/mm3 (1.2-5.4); Lymphocytes % (Auto) 11.1 % (13.4-35.0); Mean Corpuscular HGB Conc 32 % (30-34); Mean Corpuscular Volume 88 fl (79-97); Monocytes # (Auto) 0.4 K/mm3 (0.0-0.8); Monocytes % (Auto) 9.7 % (0.0-7.3); Platelet Count 140 K/mm3 (140-440); Red Blood Count 3.73 M/mm3 (3.65-5.03); Red Cell Distribution Width 18.5 % (13.2-15.2)
[2019-08-07 08:54] LABS: INR 1.15 (0.87-1.13); Partial Thromboplastin Time 30.1 Sec. (24.2-36.6)
--- NOTE | 2019-08-07 09:14 | Progress Note ---
Assessment and Plan ESRD on HD Nausea, vomiting on IV protonix Chronic non-specific troponin elevation in the setting of renal failure Mariam 2019 - no ischemia Echo 07/2016 - normal LVEF Abnormal ECG Recommendations: Continue current management No need for further cardiac work-up Subjective Date of service: 08/07/19 Principal diagnosis: Nausea and vomiting Interval history: Patient denies chest pain or shortness of breath this morning No cardiac events overnight Objective Vital Signs Temp Pulse Resp BP BP Pulse Ox 08/07/19 05:05 98.0 F 90 18 155/80 100 08/07/19 01:48 88 151/72 08/07/19 01:47 88 151/72 08/06/19 23:09 83 18 148/78 97 08/06/19 21:40 100 08/06/19 20:00 98.3 F 88 18 151/72 100 08/06/19 19:48 89 08/06/19 18:00 72 08/06/19 17:59 98 08/06/19 16:50 97.9 F 72 18 164/84 08/06/19 16:30 73 132/70 08/06/19 16:15 70 130/65 08/06/19 16:00 78 155/78 08/06/19 15:45 88 161/87 08/06/19 15:30 76 87/58 08/06/19 15:15 80 101/71 08/06/19 15:00 81 128/75 08/06/19 14:45 77 86/53 08/06/19 14:30 80 130/78 08/06/19 14:00 84 125/80 08/06/19 12:55 97.8 F 87 20 213/100 08/06/19 10:00 70 - Physical Examination HEENT: Positive: PERRL Neck: Positive: neck supple Cardiac: Positive: Reg Rate and Rhythm, Systolic Murmur Lungs: Positive: Normal Exam Neuro: Positive: Grossly Intact, Weakness Abdomen: Positive: Soft Extremities: Absent: normal - Labs and Meds Coagulation 08/07/19 Range/Units 07:22 PT 14.9 (12.2-14.9) Sec. INR 1.15 H (0.87-1.13) APTT 30.1 (24.2-36.6) Sec. CBC 08/07/19 Range/Units 07:23 WBC 4.4 L (4.5-11.0) K/mm3 RBC 3.73 (3.65-5.03) M/mm3 Hgb 10.4 (10.1-14.3) gm/dl Hct 32.7 (30.3-42.9) % Plt Count 140 (140-440) K/mm3 Lymph # 0.5 L (1.2-5.4) K/mm3 [place] # 0.4 (0.0-0.8) K/mm3 Eos # 0.1 (0.0-0.4) K/mm3 Baso # 0.0 (0.0-0.1) K/mm3 Comprehensive Metabolic Panel 08/06/19 Range/Units 09:06 Sodium 145 (137-145) mmol/L Potassium 4.5 (3.6-5.0) mmol/L Chloride 96.5 L (98-107) mmol/L Carbon Dioxide 26 (22-30) mmol/L BUN 38 H (7-17) mg/dL Creatinine 7.5 H (0.7-1.2) mg/dL Glucose 90 (65-100) mg/dL Calcium 9.7 (8.4-10.2) mg/dL
[2019-08-07] MEDS ORDERED: ASPIRIN EC 325 MG TAB PO SCH (10:00)
[2019-08-07] MEDS: SERTRALINE 50 MG TAB PO SCH (11:10)
[2019-08-07] MEDS: ASPIRIN EC 81 MG TAB PO SCH (11:10)
[2019-08-07] MEDS: CLOPIDOGREL 75 MG TAB PO SCH (11:10)
--- NOTE | 2019-08-07 11:33 | Gastroenterology Consultation ---
<LAURIE ALICIA - Last Filed: 08/07/19 12:11> History of Present Illness - Reason for Consult Consult date: 08/07/19 coffee-ground emesis Requesting physician: FLOR CADENA - History of Present Illness Patient is a 59y/o female with PMH of ESRD on HD, arthritis, COPD, CAD, CHF, HTN, DM, seizure disorder, and CVA/TIAs who presented to ED with AMS and N/V. She was admitted and currently being treated for acute encephalopathy and elevated troponin (cardiology following). GI has been consulted for coffee- ground emesis. This morning patient was resting in bed w/o acute distress. Noted to be somnolent but oriented upon exam. Admits to N/V yesterday to which she states she believes was associated with her having seizures while at home with black emesis which has now resolved with no episodes of vomiting today or signs of bleeding. Denies abdominal pain, hematemesis, melena, or hematochezia. Takes Plavix and ASA at home but no reported hx of GI bleeding, PUD, or liver disease. No prior EGD. Patient is previously known to our group from a colon cancer screening in 2017 with colonoscopy revealing polyps. Past History Past Medical History: other (as per HPI) Past Surgical History: Other (Breast reduction, coronary stent placement, AV fistula placement in the left arm) Social history: no significant social history Family history: hypertension Medications and Allergies Allergies Allergy/AdvReac Type Severity Reaction Status Date / Time No Known Allergies Allergy Unverified 10/09/15 20:10 Home Medications Medication Instructions Recorded Confirmed Last Taken Type Aspirin EC [Halfprin EC] 81 mg PO QDAY 07/15/19 08/05/19 Unknown History Calcium Acetate 667 mg PO TID 07/15/19 07/15/19 Unknown History Clopidogrel [Plavix] 75 mg PO QDAY 07/15/19 08/05/19 Unknown History Ipratropium (Nf) [Atrovent HFA 2 puff IH Q6HR 07/15/19 07/15/19 Unknown History 17MCG/PUFF] Sertraline [Zoloft] 50 mg PO QDAY 07/15/19 08/05/19 Unknown History carvediloL [Coreg] 12.5 mg PO BID 07/15/19 08/05/19 Unknown History hydrALAZINE [Apresoline TAB] 25 mg PO BID 07/15/19 08/05/19 Unknown History oxyCODONE /ACETAMINOPHEN [Percocet 1 tab PO Q6HR PRN 07/15/19 07/15/19 Unknown History 5/325 mg] Simvastatin 40 mg PO QHS #30 tablet 07/16/19 08/05/19 Unknown Rx Torsemide [Demadex] 20 mg PO DAILY@0600 #30 tablet 07/16/19 Unknown Rx Active Meds: Active Medications Acetaminophen (Tylenol) 650 mg PO Q4H PRN PRN Reason: Pain MILD(1-3)/Fever >100.5/MCDANIEL Aspirin (Halfprin Ec) 81 mg PO QDAY [facility] Last Admin: 08/07/19 11:10 Dose: 81 mg Documented by: Calcium Acetate (Phoslo) 667 mg PO TIDWM [facility] Last Admin: 08/07/19 11:30 Dose: 667 mg Documented by: Carvedilol (Coreg) 12.5 mg PO BID [facility] Last Admin: 08/07/19 11:16 Dose: 12.5 mg Documented by: Clopidogrel Bisulfate (Plavix) 75 mg PO QDAY [facility] Last Admin: 08/07/19 11:10 Dose: 75 mg Documented by: Dextrose (D50w (25gm) Syringe) 50 ml IV Q30MIN PRN; Protocol PRN Reason: Hypoglycemia Heparin Sodium (Porcine) (Heparin) 5,000 unit SUB-Q Q8HR [facility] Last Admin: 08/07/19 00:47 Dose: 5,000 unit Documented by: Hydralazine HCl (Apresoline) 25 mg PO BID [facility] Last Admin: 08/07/19 11:20 Dose: 25 mg Documented by: Pantoprazole Sodium 80 mg/ (Sodium Chloride) 100 mls @ 10 mls/hr IV DIRECT [facility] Last Admin: 08/07/19 00:40 Dose: 8 mg/hr, 10 mls/hr Documented by: Insulin Human Lispro (Humalog) 0 unit SUB-Q ACHS [facility]; Protocol Last Admin: 08/07/19 08:35 Dose: Not Given Documented by: Magnesium Hydroxide (Milk Of Magnesia) 30 ml PO Q4H PRN PRN Reason: Constipation Morphine Sulfate (Morphine) 2 mg IV Q5MIN PRN PRN Reason: Chest Pain unrelieved by NTG Morphine Sulfate (Morphine) 2 mg IV Q4H PRN PRN Reason: Pain, Moderate (4-6) Nitroglycerin (Nitrostat) 0.4 mg SL Q5M PRN PRN Reason: Chest Pain Ondansetron HCl (Zofran) 4 mg IV Q8H PRN PRN Reason: Nausea And Vomiting Last Admin: 08/06/19 23:06 Dose: 4 mg Documented by: Pravastatin Sodium (Pravachol) 80 mg PO QHS [facility] Last Admin: 08/07/19 01:49 Dose: Not Given Documented by: Sertraline HCl (Zoloft) 50 mg PO QDAY [facility] Last Admin: 08/07/19 11:10 Dose: 50 mg Documented by: Sodium Chloride (Sodium Chloride Flush Syringe 10 Ml) 10 ml IV PRN PRN PRN Reason: LINE FLUSH Last Admin: 08/07/19 01:01 Dose: 10 ml Documented by: Sodium Chloride (Sodium Chloride Flush Syringe 10 Ml) 10 ml IV BID [facility] Last Admin: 08/07/19 11:11 Dose: 10 ml Documented by: medications reviewed/updated as required Review of Systems - Review of Systems All systems: negative Gastrointestinal: coffee ground emesis Exam - Constitutional Vital Signs: Temp Pulse Resp BP Pulse Ox 98.2 F 90 20 149/79 100 08/07/19 11:15 08/07/19 11:20 08/07/19 11:15 08/07/19 11:20 08/07/19 11:15 General appearance: no acute distress, other (somnolent) - EENT ENT: hearing intact - Respiratory Respiratory effort: normal Respiratory: bilateral: diminished - Cardiovascular Rhythm: regular - Gastrointestinal General gastrointestinal: Present: soft, non-tender, non-distended, normal bowel sounds - Integumentary Integumentary: Present: warm, dry - Neurologic Neurological: alert and oriented x3 - Labs CBC & Chem 7: 08/07/19 07:23 08/06/19 09:06 Lab Results: Laboratory Results - last 24 hr 08/06/19 08/07/19 08/07/19 22:11 07:22 07:23 WBC 4.4 L RBC 3.73 Hgb 10.4 Hct 32.7 MCV 88 MCH 28 MCHC 32 RDW 18.5 H Plt Count 140 Lymph % (Auto) 11.1 L [place] % (Auto) 9.7 H Eos % (Auto) 2.8 Baso % (Auto) 0.5 Lymph # 0.5 L [place] # 0.4 Eos # 0.1 Baso # 0.0 Seg Neutrophils % 75.9 H Seg Neutrophils # 3.3 PT 14.9 INR 1.15 H APTT 30.1 POC Glucose 88 08/07/19 07:59 WBC RBC Hgb Hct MCV MCH MCHC RDW Plt Count Lymph % (Auto) [place] % (Auto) Eos % (Auto) Baso % (Auto) Lymph # [place] # Eos # Baso # Seg Neutrophils % Seg Neutrophils # PT INR APTT POC Glucose 86 Assessment and Plan 1.coffee-ground emesis -H/H WNL; continue to monitor H/H and transfuse as needed (currently on plavix and ASA) -patient reports N/V yesterday associated with having seizures at home with black colored emesis. N/V has now resolved with no episodes of vomiting or signs of bleeding today. Denies abdominal pain, hematemesis, melena, or hematochezia. -no plan for EGD at this time, will consider based on clinical course -okay to start on liquids today, advance diet as tolerated -okay to d/c protonix drip and transition to BID -continue supportive care -will follow <PAIGE CALHOUN - Last Filed: 08/07/19 17:56> Medications and Allergies Active Meds: Active Medications Acetaminophen (Tylenol) 650 mg PO Q4H PRN PRN Reason: Pain MILD(1-3)/Fever >100.5/MCDANIEL Aspirin (Halfprin Ec) 81 mg PO QDAY [facility] Last Admin: 08/07/19 11:10 Dose: 81 mg Documented by: Calcium Acetate (Phoslo) 667 mg PO TIDWM [facility] Last Admin: 08/07/19 11:30 Dose: 667 mg Documented by: Carvedilol (Coreg) 12.5 mg PO BID [facility] Last Admin: 08/07/19 11:16 Dose: 12.5 mg Documented by: Clopidogrel Bisulfate (Plavix) 75 mg PO QDAY [facility] Last Admin: 08/07/19 11:10 Dose: 75 mg Documented by: Dextrose (D50w (25gm) Syringe) 50 ml IV Q30MIN PRN; Protocol PRN Reason: Hypoglycemia Heparin Sodium (Porcine) (Heparin) 5,000 unit SUB-Q Q8HR [facility] Last Admin: 08/07/19 14:20 Dose: 5,000 unit Documented by: Hydralazine HCl (Apresoline) 25 mg PO BID [facility] Last Admin: 08/07/19 11:20 Dose: 25 mg Documented by: Insulin Human Lispro (Humalog) 0 unit SUB-Q ACHS [facility]; Protocol Last Admin: 08/07/19 13:17 Dose: Not Given Documented by: Levetiracetam (Keppra) 500 mg PO BID [facility] Loperamide HCl (Imodium A-D) 2 mg PO Q2H PRN PRN Reason: Diarrhea Magnesium Hydroxide (Milk Of Magnesia) 30 ml PO Q4H PRN PRN Reason: Constipation Morphine Sulfate (Morphine) 2 mg IV Q5MIN PRN PRN Reason: Chest Pain unrelieved by NTG Morphine Sulfate (Morphine) 2 mg IV Q4H PRN PRN Reason: Pain, Moderate (4-6) Nitroglycerin (Nitrostat) 0.4 mg SL Q5M PRN PRN Reason: Chest Pain Ondansetron HCl (Zofran) 4 mg IV Q8H PRN PRN Reason: Nausea And Vomiting Last Admin: 08/06/19 23:06 Dose: 4 mg Documented by: Pantoprazole Sodium (Protonix) 40 mg IV BID [facility] Pravastatin Sodium (Pravachol) 80 mg PO QHS [facility] Last Admin: 08/07/19 01:49 Dose: Not Given Documented by: Sertraline HCl (Zoloft) 50 mg PO QDAY [facility] Last Admin: 08/07/19 11:10 Dose: 50 mg Documented by: Sodium Chloride (Sodium Chloride Flush Syringe 10 Ml) 10 ml IV PRN PRN PRN Reason: LINE FLUSH Last Admin: 08/07/19 01:01 Dose: 10 ml Documented by: Sodium Chloride (Sodium Chloride Flush Syringe 10 Ml) 10 ml IV BID [facility] Last Admin: 08/07/19 11:11 Dose: 10 ml Documented by: Exam - Constitutional Vital Signs: Temp Pulse Resp BP Pulse Ox 98.2 F 90 20 149/79 100 08/07/19 11:15 08/07/19 11:20 08/07/19 12:00 08/07/19 11:20 08/07/19 15:44 - Labs CBC & Chem 7: 08/07/19 07:23 08/06/19 09:06 Lab Results: Laboratory Results - last 24 hr 08/06/19 08/07/19 08/07/19 22:11 07:22 07:23 WBC 4.4 L RBC 3.73 Hgb 10.4 Hct 32.7 MCV 88 MCH 28 MCHC 32 RDW 18.5 H Plt Count 140 Lymph % (Auto) 11.1 L [place] % (Auto) 9.7 H Eos % (Auto) 2.8 Baso % (Auto) 0.5 Lymph # 0.5 L [place] # 0.4 Eos # 0.1 Baso # 0.0 Seg Neutrophils % 75.9 H Seg Neutrophils # 3.3 PT 14.9 INR 1.15 H APTT 30.1 POC Glucose 88 08/07/19 08/07/19 08/07/19 07:59 11:24 17:09 WBC RBC Hgb Hct MCV MCH MCHC RDW Plt Count Lymph % (Auto) [place] % (Auto) Eos % (Auto) Baso % (Auto) Lymph # [place] # Eos # Baso # Seg Neutrophils % Seg Neutrophils # PT INR APTT POC Glucose 86 71 103 Assessment and Plan Patient seen and examined, agree with the advanced practitioners assessment and plan with the following additions: Patient clinically improving in terms of upper GI symptoms EGD not required she is reporting significant diarrhea, will order stool studies to rule out infection
[2019-08-07] MEDS ORDERED: LOPERAMIDE 2 MG/10 ML ORAL LIQD PO PRN (17:00)
--- NOTE | 2019-08-07 17:01 | Progress Note ---
Assessment and Plan / Acute toxic encephalopathy - resolved likely from baclofen, cont to provide supportive care /ESRD (end stage renal disease) placed a consult to nephrology for dialysis s/p HD / Intractable nausea and vomiting Etiology is unclear however patient has been placed on IV Zofran as needed. GI consulted, now tolerating diet /diarrhea, stool study ordered, doubt infectious / Elevated troponin Patient has chronically elevated troponin. There has been no EKG changes. Results were discussed with the on-call nuclear medicine physician by the ER physician and recommendation is to trend the troponin levels. / Hypertension We will monitor vital signs closely and continue routine home medications. / Type 2 diabetes mellitus We will monitor Accu-Cheks with SSI. /H/o seizure, cannot tell home meds, will place on keppra /DVT prophylaxis Patient placed on subcutaneous heparin. /moderate malnutrition - dietary advice given / Full code status Disposition: home when PT clears and medically remains stable tomorrow Subjective Date of service: 08/07/19 Principal diagnosis: Nausea and vomiting Interval history: patient sen and examined Alert and oriented today tolerating diet, but c/o loose stool PT eval pending Objective - Exam Narrative Exam: General appearance: Present: no acute distress, malnourished - EENT Eyes: Present: PERRL, EOM intact ENT: hearing intact, clear oral mucosa, dentition normal - Neck Neck: Present: supple, normal ROM - Respiratory Respiratory effort: normal Respiratory: bilateral: CTA - Cardiovascular Rhythm: regular Heart Sounds: Present: S1 & S2 - Extremities Extremities: no ischemia, pulses intact, pulses symmetrical, No edema, Full ROM Peripheral Pulses: within normal limits - Abdominal General gastrointestinal: Present: soft, non-tender, non-distended - Integumentary Integumentary: Present: clear, warm, dry - Musculoskeletal Musculoskeletal: strength equal bilaterally - Psychiatric Psychiatric: cooperative - Neurologic Neurologic: moves all extremities, AAOx 3 - Constitutional Vitals: Vital Signs - 12hr 08/07/19 08/07/19 08/07/19 05:05 08:46 10:00 Temperature 98.0 F 97.0 F L Pulse Rate 90 89 89 Respiratory 18 20 Rate Blood Pressure 155/80 142/72 O2 Sat by Pulse 100 98 Oximetry 08/07/19 08/07/19 08/07/19 11:11 11:15 11:16 Temperature 98.2 F Pulse Rate 90 90 90 Respiratory 20 Rate Blood Pressure 149/79 149/79 149/79 O2 Sat by Pulse 100 Oximetry 08/07/19 08/07/19 08/07/19 11:20 12:00 15:44 Temperature Pulse Rate 90 Respiratory 20 Rate Blood Pressure 149/79 O2 Sat by Pulse 100 Oximetry - Labs CBC & Chem 7: 08/07/19 07:23 08/06/19 09:06 Labs: Abnormal lab results 08/07/19 08/07/19 Range/Units 07:22 07:23 WBC 4.4 L (4.5-11.0) K/mm3 RDW 18.5 H (13.2-15.2) % Lymph % (Auto) 11.1 L (13.4-35.0) % [place] % (Auto) 9.7 H (0.0-7.3) % Lymph # 0.5 L (1.2-5.4) K/mm3 Seg Neutrophils % 75.9 H (40.0-70.0) % INR 1.15 H (0.87-1.13)
[2019-08-07] MEDS ORDERED: LOPERAMIDE 2 MG/10 ML ORAL LIQD ONE (18:00)
--- NOTE | 2019-08-07 18:02 | Progress Note ---
Assessment and Plan - Patient Problems (1) ESRD needing dialysis Current Visit: No Status: Acute Plan to address problem: end-stage renal disease Continue hemodialysis Saturday (2) Type 2 diabetes mellitus Onset Date: 04/03/16 Current Visit: No Status: Chronic Qualifiers: Diabetes mellitus terminologist insulin use: with terminologist use Diabetes mellitus complication detail: with nephropathy Plan to address problem: Diabetes mellitus type 2 Continue medications Monitor fingerstick (3) Hypertension Current Visit: No Status: Chronic Qualifiers: Hypertension type: essential hypertension Qualified Code(s): I10 - Essential (primary) hypertension Plan to address problem: Hypertension uncontrolled Optimize volume status Continue medications (4) Encephalopathy Current Visit: Yes Status: Acute Plan to address problem: Encephalopathy query related to baclofen Much improved continue dialysis Subjective Principal diagnosis: Nausea and vomiting Interval history: 59-year-old lady with medical history significant for end-stage renal disease on hemodialysis Saturday via a left arm AV fistula admitted with confusion and there was some concern that she had taken baclofen. Apparently has also missed dialysis Review of systems unobtainable as patient is confused Patient since been much more appropriate mental status much improved family at bedside family at bedside denies any shortness of breath denies any orthopnea Objective - Vital Signs Vital signs: Vital Signs - 12hr 08/07/19 08/07/19 08/07/19 08:46 10:00 11:11 Temperature 97.0 F L Pulse Rate 89 89 90 Respiratory 20 Rate Blood Pressure 142/72 149/79 O2 Sat by Pulse 98 Oximetry 08/07/19 08/07/19 08/07/19 11:15 11:16 11:20 Temperature 98.2 F Pulse Rate 90 90 90 Respiratory 20 Rate Blood Pressure 149/79 149/79 149/79 O2 Sat by Pulse 100 Oximetry 08/07/19 08/07/19 12:00 15:44 Temperature Pulse Rate Respiratory 20 Rate Blood Pressure O2 Sat by Pulse 100 Oximetry - General Appearance General appearance: well-developed, well-nourished EENT: ATNC, PERRL Neck: no JVD Respiratory: Present: Clear to Ascultation Cardiology: regular, S1S2 Gastrointestinal: normal, normoactive bowel sounds Integumentary: no rash Neurologic: alert and oriented x3, CN 3-12 intact Psychiatric: mood/affect appropriate - Lab 08/07/19 07:23 08/06/19 09:06 Most recent lab results Calcium 9.7 mg/dL (8.4-10.2) 08/06/19 09:06 - Imaging Chest x-ray: image reviewed (chest x-ray reviewed) Medications & Allergies - Medications Allergies/Adverse Reactions: Allergies No Known Allergies Allergy (Unverified 10/09/15 20:10) Home Medications: Home Medications Medication Instructions Recorded Confirmed Last Taken Type Aspirin EC [Halfprin EC] 81 mg PO QDAY 07/15/19 08/05/19 Unknown History Calcium Acetate 667 mg PO TID 07/15/19 07/15/19 Unknown History Clopidogrel [Plavix] 75 mg PO QDAY 07/15/19 08/05/19 Unknown History Ipratropium (Nf) [Atrovent HFA 2 puff IH Q6HR 07/15/19 07/15/19 Unknown History 17MCG/PUFF] Sertraline [Zoloft] 50 mg PO QDAY 07/15/19 08/05/19 Unknown History carvediloL [Coreg] 12.5 mg PO BID 07/15/19 08/05/19 Unknown History hydrALAZINE [Apresoline TAB] 25 mg PO BID 07/15/19 08/05/19 Unknown History oxyCODONE /ACETAMINOPHEN [Percocet 1 tab PO Q6HR PRN 07/15/19 07/15/19 Unknown History 5/325 mg] Simvastatin 40 mg PO QHS #30 tablet 07/16/19 08/05/19 Unknown Rx Torsemide [Demadex] 20 mg PO DAILY@0600 #30 tablet 07/16/19 Unknown Rx Active Medications: Generic Name Dose Route Start Last Admin Trade Name Freq PRN Reason Stop Dose Admin Acetaminophen 650 mg 08/06/19 00:25 Tylenol PO Q4H PRN Pain MILD(1-3)/Fever >100.5/MCDANIEL Aspirin 81 mg 08/06/19 10:00 08/07/19 11:10 Halfprin Ec PO 81 mg QDAY [facility] Administration Calcium Acetate 667 mg 08/06/19 08:00 08/07/19 11:30 Phoslo PO 667 mg TIDWM [facility] Administration Carvedilol 12.5 mg 08/06/19 10:00 08/07/19 11:16 Coreg PO 12.5 mg BID [facility] Administration Clopidogrel Bisulfate 75 mg 08/06/19 10:00 08/07/19 11:10 Plavix PO 75 mg QDAY [facility] Administration Dextrose 50 ml 08/06/19 00:25 D50w (25gm) Syringe IV Q30MIN PRN Hypoglycemia Protocol Heparin Sodium (Porcine) 5,000 unit 08/06/19 14:00 08/07/19 14:20 Heparin SUB-Q 5,000 unit Q8HR [facility] Administration Hydralazine HCl 25 mg 08/06/19 10:00 08/07/19 11:20 Apresoline PO 25 mg BID [facility] Administration Insulin Human Lispro 0 unit 08/06/19 07:30 08/07/19 13:17 Humalog SUB-Q Not Given ACHS [facility] Protocol Levetiracetam 500 mg 08/07/19 22:00 Keppra PO BID [facility] Loperamide HCl 2 mg 08/07/19 17:00 Imodium A-D PO Q2H PRN Diarrhea Magnesium Hydroxide 30 ml 08/06/19 00:25 Milk Of Magnesia PO Q4H PRN Constipation Morphine Sulfate 2 mg 08/06/19 00:25 Morphine IV Q5MIN PRN Chest Pain unrelieved by NTG Morphine Sulfate 2 mg 08/06/19 00:25 Morphine IV Q4H PRN Pain, Moderate (4-6) Nitroglycerin 0.4 mg 08/06/19 00:25 Nitrostat SL Q5M PRN Chest Pain Ondansetron HCl 4 mg 08/06/19 00:25 08/06/19 23:06 Zofran IV 4 mg Q8H PRN Administration Nausea And Vomiting Pantoprazole Sodium 40 mg 08/07/19 22:00 Protonix IV BID [facility] Pravastatin Sodium 80 mg 08/06/19 22:00 08/07/19 01:49 Pravachol PO Not Given QHS [facility] Sertraline HCl 50 mg 08/06/19 10:00 08/07/19 11:10 Zoloft PO 50 mg QDAY [facility] Administration Sodium Chloride 10 ml 08/06/19 00:25 08/07/19 01:01 Sodium Chloride Flush Syringe 10 Ml IV 10 ml PRN PRN Administration LINE FLUSH Sodium Chloride 10 ml 08/06/19 10:00 08/07/19 11:11 Sodium Chloride Flush Syringe 10 Ml IV 10 ml BID [facility] Administration
[2019-08-07] MEDS: levETIRAcetam 500 MG TAB PO SCH (21:51)
[2019-08-07] MEDS ORDERED: PANTOPRAZOLE 40 MG INJ IV SCH (22:00)
[2019-08-08] MEDS: HEPARIN 5,000 UNIT/1 ML VIAL SUB-Q SCH ×3 (05:27→14:52)
[2019-08-08] MEDS: CALCIUM ACETATE 667 MG CAP PO SCH ×3 (08:00→17:53)
[2019-08-08] MEDS: INSULIN LISPRO 100 UNIT/ML SUB-Q SCH ×3 (08:00→17:26)
[2019-08-08] MEDS ORDERED: PANTOPRAZOLE 40 MG TAB PO SCH (10:00)
[2019-08-08] MEDS: hydrALAZINE 25 MG TAB PO SCH (10:00)
[2019-08-08] MEDS ORDERED: MORPHINE 2 MG/1 ML INJ IV PRN (10:01)
--- NOTE | 2019-08-08 10:06 | Gastroenterology Progress Note ---
Assessment and Plan - Patient Problems (1) Coffee ground emesis Current Visit: Yes Status: Acute Plan to address problem: - Resolved with stable hct; no indication for EGD. - OK to continue ASA and plavix with daily protonix. - Will advance to renal diet. (2) Diarrhea Current Visit: Yes Status: Acute Plan to address problem: - Colonoscopy 2017 negative; C diff ordered but not collected. - Unclear amount (patient not a good historian). - Would continue to hold abx since afebrile with normal WBC. - Will re-assess after being on regular diet. Subjective Date of service: 08/08/19 Principal diagnosis: CGE, Diarrhea Interval history: The patient's N/V has resolved, and she tolerated a liquid diet. She has no blood in the stools, but says she continues to have diarrhea. No blood in the stools, and she can not quantify amount. C diff not collected yet. Objective - Constitutional Vitals: Temp Pulse Resp BP Pulse Ox 98.2 F 83 18 114/60 84 08/08/19 08:05 08/08/19 08:05 08/08/19 08:05 08/08/19 08:05 08/08/19 08:05 General appearance: no acute distress - Respiratory Respiratory effort: normal Respiratory: bilateral: CTA - Cardiovascular Rhythm: regular Heart Sounds: Present: S1 & S2 - Gastrointestinal General gastrointestinal: Present: soft, non-tender, non-distended - Labs CBC & Chem 7: 08/07/19 07:23 08/06/19 09:06 Labs: Laboratory Results - last 24 hr 08/07/19 08/07/19 08/07/19 11:24 17:09 20:17 POC Glucose 71 103 104 08/08/19 08:14 POC Glucose 88
[2019-08-08] MEDS: ASPIRIN EC 81 MG TAB PO SCH ×2 (14:57→14:59)
[2019-08-08] MEDS: levETIRAcetam 500 MG TAB PO SCH (14:57)
[2019-08-08] MEDS: CLOPIDOGREL 75 MG TAB PO SCH ×2 (14:57→14:59)
[2019-08-08] MEDS: SERTRALINE 50 MG TAB PO SCH ×2 (14:57→14:59)
[2019-08-08] MEDS: carvediloL 12.5 MG TAB PO SCH ×2 (14:57→14:58)
--- NOTE | 2019-08-08 16:20 | Discharge Summary ---
Providers - Providers Date of Admission: 08/06/19 14:00 Date of discharge: 08/08/19 Attending physician: DIYA LO 08/06/19 00:25 Consult to Physician [CONS] Routine Comment: Consulting Provider: GILDA HENSLEY Physician Instructions: Reason For Exam: ESRD ON DIALYSIS M,W,F. 08/06/19 00:27 Consult to Cardiology [CONS] Routine Consulting Provider: ADRIANNE DIAMOND Reason For Exam: ELEVATED TROPONIN 08/06/19 23:36 Consult to Physician [CONS] Routine Comment: Consulting Provider: ALEC CADENA Physician Instructions: Reason For Exam: coffee ground emesis Primary care physician: LI ROSENBAUM Hospitalization Condition: Fair Hospital course: Discharge diagnosis: / Acute toxic encephalopathy - resolved likely from baclofen, cont to provide supportive care CT head unremarkable /ESRD (end stage renal disease) placed a consult to nephrology for dialysis s/p HD / Intractable nausea and vomiting Etiology is unclear however patient has been placed on IV Zofran as needed. GI consulted, now tolerating diet /diarrhea, stool study ordered, doubt infectious / Elevated troponin Patient has chronically elevated troponin. There has been no EKG changes. Results were discussed with the on-call screen cutter and trimmer by the ER physician and recommendation is to trend the troponin levels. / Hypertension We will monitor vital signs closely and continue routine home medications. / Type 2 diabetes mellitus We will monitor Accu-Cheks with SSI. /H/o seizure, cannot tell home meds, will place on keppra /DVT prophylaxis Patient placed on subcutaneous heparin. /moderate malnutrition - dietary advice given / Full code status Disposition: home with Physical exam General appearance: Present: no acute distress, malnourished - EENT Eyes: Present: PERRL, EOM intact ENT: hearing intact, clear oral mucosa, dentition normal - Neck Neck: Present: supple, normal ROM - Respiratory Respiratory effort: normal Respiratory: bilateral: CTA - Cardiovascular Rhythm: regular Heart Sounds: Present: S1 & S2 - Extremities Extremities: no ischemia, pulses intact, pulses symmetrical, No edema, Full ROM Peripheral Pulses: within normal limits - Abdominal General gastrointestinal: Present: soft, non-tender, non-distended - Integumentary Integumentary: Present: clear, warm, dry - Musculoskeletal Musculoskeletal: strength equal bilaterally - Psychiatric Psychiatric: cooperative - Neurologic Neurologic: moves all extremities, AAOx 3 Disposition: DC/TX-06 HOME UNDER HOME [facility] Time spent for discharge: 34 minutes Core Measure Documentation - Palliative Care Palliative Care/ Comfort Measures: Not Applicable - Core Measures Any of the following diagnoses?: none Exam - Physical Exam Narrative exam: General appearance: Present: no acute distress, malnourished - EENT Eyes: Present: PERRL, EOM intact ENT: hearing intact, clear oral mucosa, dentition normal - Neck Neck: Present: supple, normal ROM - Respiratory Respiratory effort: normal Respiratory: bilateral: CTA - Cardiovascular Rhythm: regular Heart Sounds: Present: S1 & S2 - Extremities Extremities: no ischemia, pulses intact, pulses symmetrical, No edema, Full ROM Peripheral Pulses: within normal limits - Abdominal General gastrointestinal: Present: soft, non-tender, non-distended - Integumentary Integumentary: Present: clear, warm, dry - Musculoskeletal Musculoskeletal: strength equal bilaterally - Psychiatric Psychiatric: cooperative - Neurologic Neurologic: moves all extremities, AAOx 3 - Constitutional Vitals: Temp Pulse Resp BP Pulse Ox 98.4 F 72 18 138/75 98 08/08/19 09:28 08/08/19 13:00 08/08/19 09:28 08/08/19 13:00 08/08/19 10:00 Plan Activity: advance as tolerated Weight Bearing Status: Weight Bear as Tolerated Diet: renal Special Instructions: restrict fluid intake to (1.2 L daily) Follow up with: LB LUCIO MD [Referring] - 3-5 Days EDWIN PORTILLO MD [Staff Physician] - 7 Days Prescriptions: levETIRAcetam [Keppra TAB] 500 mg PO BID #60 tablet
--- NOTE | 2019-08-08 16:32 | Progress Note ---
Assessment and Plan - Patient Problems (1) ESRD needing dialysis Current Visit: No Status: Acute Plan to address problem: end-stage renal disease Continue hemodialysis Saturday (2) Type 2 diabetes mellitus Onset Date: 04/03/16 Current Visit: No Status: Chronic Qualifiers: Diabetes mellitus vegetable cutter insulin use: with vegetable cutter use Diabetes mellitus complication detail: with nephropathy Plan to address problem: Diabetes mellitus type 2 Continue medications Monitor fingerstick (3) Hypertension Current Visit: No Status: Chronic Qualifiers: Hypertension type: essential hypertension Qualified Code(s): I10 - Essential (primary) hypertension Plan to address problem: Hypertension uncontrolled Optimize volume status Continue medications (4) Encephalopathy Current Visit: Yes Status: Acute Plan to address problem: Encephalopathy query related to baclofen Much improved continue dialysis Subjective Principal diagnosis: Nausea and vomiting Interval history: 59-year-old lady with medical history significant for end-stage renal disease on hemodialysis Saturday via a left arm AV fistula admitted with confusion and there was some concern that she had taken baclofen. Apparently has also missed dialysis Review of systems unobtainable as patient is confused Patient since been much more appropriate mental status much improved Tolerated dialysis today Denies any shortness of breath Objective - Vital Signs Vital signs: Vital Signs - 12hr 08/08/19 08/08/19 08/08/19 04:51 08:05 09:28 Temperature 97.9 F 98.2 F 98.4 F Pulse Rate 83 83 82 Respiratory 18 18 18 Rate Blood Pressure 149/71 114/60 152/75 O2 Sat by Pulse 99 84 Oximetry 08/08/19 08/08/19 08/08/19 09:45 10:00 10:15 Temperature Pulse Rate 81 83 75 Respiratory Rate Blood Pressure 143/72 139/76 119/63 O2 Sat by Pulse 98 Oximetry 08/08/19 08/08/19 08/08/19 10:30 10:45 11:00 Temperature Pulse Rate 75 76 76 Respiratory Rate Blood Pressure 129/69 138/73 129/72 O2 Sat by Pulse Oximetry 08/08/19 08/08/19 08/08/19 11:15 11:30 11:45 Temperature Pulse Rate 73 76 75 Respiratory Rate Blood Pressure 136/73 142/74 134/73 O2 Sat by Pulse Oximetry 08/08/19 08/08/19 08/08/19 12:00 12:15 12:30 Temperature Pulse Rate 82 73 75 Respiratory Rate Blood Pressure 105/64 131/69 119/64 O2 Sat by Pulse Oximetry 08/08/19 08/08/19 12:45 13:00 Temperature Pulse Rate 76 72 Respiratory Rate Blood Pressure 114/61 138/75 O2 Sat by Pulse Oximetry - General Appearance General appearance: well-developed, well-nourished EENT: ATNC, PERRL, mucous membranes moist Neck: no JVD Respiratory: Present: Clear to Ascultation Cardiology: regular, S1S2 Gastrointestinal: normal, normoactive bowel sounds Integumentary: no rash Neurologic: alert and oriented x3, CN 3-12 intact Psychiatric: mood/affect appropriate - Lab 08/07/19 07:23 08/06/19 09:06 Most recent lab results Calcium 9.7 mg/dL (8.4-10.2) 08/06/19 09:06 - Imaging Chest x-ray: image reviewed (reviewed chest x-ray ) Medications & Allergies - Medications Allergies/Adverse Reactions: Allergies No Known Allergies Allergy (Unverified 10/09/15 20:10) Home Medications: Home Medications Medication Instructions Recorded Confirmed Last Taken Type Aspirin EC [Halfprin EC] 81 mg PO QDAY 07/15/19 08/05/19 Unknown History Calcium Acetate 667 mg PO TID 07/15/19 08/08/19 Unknown History Clopidogrel [Plavix] 75 mg PO QDAY 07/15/19 08/05/19 Unknown History Ipratropium (Nf) [Atrovent HFA 2 puff IH Q6HR 07/15/19 08/08/19 Unknown History 17MCG/PUFF] Sertraline [Zoloft] 50 mg PO QDAY 07/15/19 08/05/19 Unknown History carvediloL [Coreg] 12.5 mg PO BID 07/15/19 08/05/19 Unknown History hydrALAZINE [Apresoline TAB] 25 mg PO BID 07/15/19 08/05/19 Unknown History Simvastatin 40 mg PO QHS #30 tablet 07/16/19 08/05/19 Unknown Rx levETIRAcetam [Keppra TAB] 500 mg PO BID #60 tablet 08/08/19 Unknown Rx Active Medications: Generic Name Dose Route Start Last Admin Trade Name Freq PRN Reason Stop Dose Admin Acetaminophen 650 mg 08/06/19 00:25 Tylenol PO Q4H PRN Pain MILD(1-3)/Fever >100.5/MCDANIEL Aspirin 81 mg 08/06/19 10:00 08/08/19 14:59 Halfprin Ec PO 81 mg QDAY [facility] Administration Calcium Acetate 667 mg 08/06/19 08:00 08/08/19 12:56 Phoslo PO Not Given TIDWM [facility] Carvedilol 12.5 mg 08/06/19 10:00 08/08/19 14:58 Coreg PO 12.5 mg BID [facility] Administration Clopidogrel Bisulfate 75 mg 08/06/19 10:00 08/08/19 14:59 Plavix PO 75 mg QDAY [facility] Administration Dextrose 50 ml 08/06/19 00:25 D50w (25gm) Syringe IV Q30MIN PRN Hypoglycemia Protocol Heparin Sodium (Porcine) 5,000 unit 08/06/19 14:00 08/08/19 14:52 Heparin SUB-Q Not Given Q8HR [facility] Hydralazine HCl 25 mg 08/06/19 10:00 08/08/19 10:00 Apresoline PO Not Given BID [facility] Insulin Human Lispro 0 unit 08/06/19 07:30 08/08/19 12:43 Humalog SUB-Q Not Given [facility] Protocol Levetiracetam 500 mg 08/07/19 22:00 08/08/19 14:57 Keppra PO 500 mg BID [facility] Administration Loperamide HCl 2 mg 08/07/19 17:00 08/07/19 18:12 Imodium A-D PO 2 mg Q2H PRN Administration Diarrhea Magnesium Hydroxide 30 ml 08/06/19 00:25 Milk Of Magnesia PO Q4H PRN Constipation Morphine Sulfate 2 mg 08/06/19 00:25 Morphine IV Q5MIN PRN Chest Pain unrelieved by NTG Morphine Sulfate 1 mg 08/08/19 10:01 Morphine IV Q6H PRN Pain, Moderate (4-6) Nitroglycerin 0.4 mg 08/06/19 00:25 Nitrostat SL Q5M PRN Chest Pain Ondansetron HCl 4 mg 08/06/19 00:25 08/06/19 23:06 Zofran IV 4 mg Q8H PRN Administration Nausea And Vomiting Pantoprazole Sodium 40 mg 08/08/19 10:00 08/08/19 14:57 Protonix PO 40 mg QDAY [facility] Administration Pravastatin Sodium 80 mg 08/06/19 22:00 08/07/19 21:51 Pravachol PO 80 mg QHS [facility] Administration Sertraline HCl 50 mg 08/06/19 10:00 08/08/19 14:59 Zoloft PO 50 mg QDAY [facility] Administration Sodium Chloride 10 ml 08/06/19 00:25 08/07/19 01:01 Sodium Chloride Flush Syringe 10 Ml IV 10 ml PRN PRN Administration LINE FLUSH Sodium Chloride 10 ml 08/06/19 10:00 08/08/19 14:58 Sodium Chloride Flush Syringe 10 Ml IV 10 ml BID [facility] Administration
[2019-08-08 16:34] VITALS: BP 99/59
[2019-08-08] MEDS ORDERED: SODIUM CHLORIDE*PRIMING MACHINE ONLY FOR DIALYSIS MC ONE (23:26)
== END 2019-08-08 18:31 | disposition home health service (06) | DRG 91 ==
LOC: ED 20:48 → 4A 23:14 → OBSVTOIN 08-06 14:00
PROVIDERS: ADMIT Internal Medicine Geriatric Medicine; ATTEND Internal Medicine
PROC: 5A1D70Z Performance of Urinary Filtration, Intermittent, Less than 6 Hours Per Day (ICD-10-PCS; principal; 2019-08-06)
PROC: 5A1D70Z Performance of Urinary Filtration, Intermittent, Less than 6 Hours Per Day (ICD-10-PCS; 2019-08-08)
DX: G92 Toxic encephalopathy (principal); N18.6 End stage renal disease; I13.2 Hypertensive heart and chronic kidney disease with heart failure and with stage 5 chronic kidney disease, or end stage renal disease; E44.0 Moderate protein-calorie malnutrition; M19.90 Unspecified osteoarthritis, unspecified site; J44.9 Chronic obstructive pulmonary disease, unspecified; E11.22 Type 2 diabetes mellitus with diabetic chronic kidney disease; I50.9 Heart failure, unspecified; G40.909 Epilepsy, unspecified, not intractable, without status epilepticus; T42.8X5A Adverse effect of antiparkinsonism drugs and other central muscle-tone depressants, initial encounter; G89.29 Other chronic pain; R94.31 Abnormal electrocardiogram [ECG] [EKG]; E78.5 Hyperlipidemia, unspecified; F32.9 Major depressive disorder, single episode, unspecified; G43.909 Migraine, unspecified, not intractable, without status migrainosus; M54.9 Dorsalgia, unspecified; Z86.73 Personal history of transient ischemic attack (TIA), and cerebral infarction without residual deficits; Z95.5 Presence of coronary angioplasty implant and graft; Z99.2 Dependence on renal dialysis; Z79.82 Long term (current) use of aspirin; Z79.899 Other long term (current) drug therapy; Z82.49 Family history of ischemic heart disease and other diseases of the circulatory system; Y92.9 Unspecified place or not applicable; Z68.27 Body mass index [BMI] 27.0-27.9, adult; I25.2 Old myocardial infarction
CPT/HCPCS: 36415; 70450; 71045; 80048; 80053; 80061; 80320; 82140; 82550; 82553; 82962; 84443; 84484; 85025; 85610; 85730; 93005; 93010; 94760; G0378; A9270-GY; C9113; G0480; J1644; J2405; J7030

== ENCOUNTER 2019-10-23 12:39 | Emergency (ER) | payer MEDICARE ==
[2019-10-23 13:12] VITALS: BP 157/75
--- NOTE | 2019-10-23 13:18 | Event Note ---
Date: 10/23/19 Medical screening note: 59-year-old female, end-stage renal disease on hemodialysis, history of ascites, coming in with 1 to 2 weeks of abdominal swelling and reported pain. On initial assessment she is afebrile, with reassuring vital signs, speaking on a cellular phone, with no obvious crackles or rales, not hypoxic, with no abdominal tender ness. She does appear to have ascites in her abdomen clinically, but it is not tense and it is not tender. Check basic laboratory studies, EKG, x-ray of the chest, reassess. Nephrology: Dr. Batista Vital Signs 10/23/19 13:08 Temperature 97.6 F Pulse Rate 85 Respiratory 21 Rate Blood Pressure 157/75 Blood Pressure 157/75 [Right] O2 Sat by Pulse 100 Oximetry
--- NOTE | 2019-10-23 13:37 | XRay Report ---
CHEST 1 VIEW 10/23/2019 1:13 PM INDICATION / CLINICAL INFORMATION: chronic ascites, fluid overload. COMPARISON: One view of the chest from 08/05/2019. FINDINGS: SUPPORT DEVICES: None. HEART / MEDIASTINUM: Cardiomegaly has improved. LUNGS / PLEURA: No significant pulmonary or pleural abnormality. No pneumothorax. ADDITIONAL FINDINGS: No significant additional findings. IMPRESSION: 1. No acute abnormality of the chest. 2. Interval improvement of cardiomegaly. Signer Name: Kei Cesar MD Signed: 10/23/2019 1:32 PM Workstation Name: [id number]
[2019-10-23 13:45] LABS: Hematocrit 36.7 % (30.3-42.9); Hemoglobin 11.7 gm/dl (10.1-14.3); Mean Corpuscular HGB Conc 32 % (30-34); Mean Corpuscular Volume 88 fl (79-97); Red Blood Count 4.16 M/mm3 (3.65-5.03); Red Cell Distribution Width 17.4 % (13.2-15.2)
[2019-10-23 13:54] LABS: Platelet Count 93 K/mm3 (140-440)
[2019-10-23 13:56] LABS: INR 1.1 (0.87-1.13)
[2019-10-23] MEDS ORDERED: oxyCODONE /ACETAMINOPHEN 5-325MG TAB PO ONE (13:56)
[2019-10-23 13:57] LABS: Partial Thromboplastin Time 32.1 Sec. (24.2-36.6)
[2019-10-23 14:07] LABS: Albumin 3.8 g/dL (3.9-5); BUN/Creatinine Ratio 4; Blood Urea Nitrogen 29 mg/dL (7-17); Calcium 9.2 mg/dL (8.4-10.2); Hemolysis Index 1
[2019-10-23 14:08] LABS: Alanine Aminotransferase < 5 units/L (7-56)
--- NOTE | 2019-10-23 14:17 | Emergency Department Report ---
ED Abdominal Pain HPI - General Chief Complaint: Abdominal Pain Stated Complaint: ABD PAIN/N/V Time Seen by Provider: 10/23/19 13:30 Source: EMS Mode of arrival: Ambulatory Limitations: No Limitations - History of Present Illness Initial Comments: 59-year-old female with past medical history of end-stage renal disease on dialysis Saturday, Saturday, Saturday, CHF, COPD, CAD with stent, and other chronic medical conditions presents to the hospital complaining of abdominal distention and needing to have a paracentesis. Patient has had recurrent ascites requiring paracentesis this year. This is her third episode currently. Last paracentesis was done 3 weeks ago by [facility] and then it was performed at [place] prior to that. Patient states they are currently investigating the cause of her paracentesis and she is scheduled to have more tests performed. Patient received all but 30 minutes of her dialysis today. She complains of generalized abdominal pain and dyspnea on exertion. No fever reported. City Driver: Dr. Batista Severity scale (0 -10): 8 - Related Data Home Medications Medication Instructions Recorded Confirmed Last Taken Aspirin EC [Halfprin EC] 81 mg PO QDAY 07/15/19 08/05/19 Unknown Calcium Acetate 667 mg PO TID 07/15/19 08/08/19 Unknown Clopidogrel [Plavix] 75 mg PO QDAY 07/15/19 08/05/19 Unknown Ipratropium (Nf) [Atrovent HFA 2 puff IH Q6HR 07/15/19 08/08/19 Unknown 17MCG/PUFF] Sertraline [Zoloft] 50 mg PO QDAY 07/15/19 08/05/19 Unknown carvediloL [Coreg] 12.5 mg PO BID 07/15/19 08/05/19 Unknown hydrALAZINE [Apresoline TAB] 25 mg PO BID 07/15/19 08/05/19 Unknown Previous Rx's Medication Instructions Recorded Last Taken Type Simvastatin 40 mg PO QHS #30 tablet 07/16/19 Unknown Rx levETIRAcetam [Keppra TAB] 500 mg PO BID #60 tablet 08/08/19 Unknown Rx Allergies Allergy/AdvReac Type Severity Reaction Status Date / Time No Known Allergies Allergy Unverified 10/09/15 20:10 ED Review of Systems ROS: Stated complaint: ABD PAIN/N/V Other details as noted in HPI Comment: All other systems reviewed and negative ED Past Medical Hx - Past Medical History Previous Medical History?: Yes Hx Hypertension: Yes Hx CVA: Yes (x4, 8 TIAs) Hx Heart Attack/AMI: Yes (2017) Hx Congestive Heart Failure: Yes Hx Diabetes: Yes Hx Liver Disease: No Hx Renal Disease: Yes Hx Arthritis: Yes Hx Headaches / Migraines: Yes Hx Seizures: Yes Hx Asthma: Yes Hx COPD: Yes (inhalers prn) Hx HIV: No - Surgical History Past Surgical History?: Yes Hx Coronary Stent: Yes (x 3) Hx Pacemaker: No Hx Internal Defibrillator: No Hx Breast Surgery: Yes (reduction (1979)) Additional Surgical History: breast reduction 1979, av fistula left arm - Social History Smoking Status: Former Smoker Substance Use Type: None - Medications Home Medications: Home Medications Medication Instructions Recorded Confirmed Last Taken Type Aspirin EC [Halfprin EC] 81 mg PO QDAY 07/15/19 08/05/19 Unknown History Calcium Acetate 667 mg PO TID 07/15/19 08/08/19 Unknown History Clopidogrel [Plavix] 75 mg PO QDAY 07/15/19 08/05/19 Unknown History Ipratropium (Nf) [Atrovent HFA 2 puff IH Q6HR 07/15/19 08/08/19 Unknown History 17MCG/PUFF] Sertraline [Zoloft] 50 mg PO QDAY 07/15/19 08/05/19 Unknown History carvediloL [Coreg] 12.5 mg PO BID 07/15/19 08/05/19 Unknown History hydrALAZINE [Apresoline TAB] 25 mg PO BID 07/15/19 08/05/19 Unknown History Simvastatin 40 mg PO QHS #30 tablet 07/16/19 08/05/19 Unknown Rx levETIRAcetam [Keppra TAB] 500 mg PO BID #60 tablet 08/08/19 Unknown Rx ED Physical Exam - General Limitations: No Limitations - Other Other exam information: General: No acute distress Head: Atraumatic Eyes: normal appearance ENT: Moist mucous membranes Neck: Normal appearance, no midline tenderness Chest: Clear to auscultation bilaterally CV: Regular rate and rhythm Abdomen: Soft, distended abdomen, generalized tenderness, no rebound or guarding Back: Normal inspection Extremity: Normal inspection, full range of motion Neuro: Alert O x 3, no facial asymmetry, speech clear, no gross motor sensory deficit Psych: Appropriate behavior Skin: No rash ED Course Vital Signs 10/23/19 10/23/19 10/23/19 13:08 13:38 14:09 Temperature 97.6 F Pulse Rate 85 Respiratory 21 18 18 Rate Blood Pressure 157/75 Blood Pressure 157/75 [Right] O2 Sat by Pulse 100 99 Oximetry ED Medical Decision Making - Lab Data Result diagrams: 10/23/19 13:24 10/23/19 13:24 Lab Results 10/23/19 10/23/19 10/23/19 Range/Units 13:24 13:24 13:24 WBC 2.7 L (4.5-11.0) K/mm3 RBC 4.16 (3.65-5.03) M/mm3 Hgb 11.7 (10.1-14.3) gm/dl Hct 36.7 (30.3-42.9) % MCV 88 (79-97) fl MCH 28 (28-32) pg MCHC 32 (30-34) % RDW 17.4 H (13.2-15.2) % Plt Count 93 L (140-440) K/mm3 PT 14.3 (12.2-14.9) Sec. INR 1.10 (0.87-1.13) APTT 32.1 (24.2-36.6) Sec. Sodium 139 (137-145) mmol/L Potassium 3.6 (3.6-5.0) mmol/L Chloride 96.4 L (98-107) mmol/L Carbon Dioxide 28 (22-30) mmol/L Anion Gap 18 mmol/L BUN 29 H (7-17) mg/dL Creatinine 7.3 H (0.7-1.2) mg/dL Estimated GFR 7 ml/min BUN/Creatinine Ratio 4 % Glucose 89 (65-100) mg/dL Calcium 9.2 (8.4-10.2) mg/dL Magnesium 1.90 (1.7-2.3) mg/dL Total Bilirubin 0.80 (0.1-1.2) mg/dL AST 10 (5-40) units/L ALT < 5 L (7-56) units/L Alkaline Phosphatase 63 (35-129) units/L Total Creatine Kinase 37 (30-135) units/L Total Protein 7.0 (6.3-8.2) g/dL Albumin 3.8 L (3.9-5) g/dL Albumin/Globulin Ratio 1.2 % - Medical Decision Making pt feeling better after paracentesis and states 5.4 L was removed. Patient was given 1 dose of Percocet prior to procedure. Post paracentesis vitals are stable and patient will be discharged pt has chronic intermittent thrombocytopenia - Differential Diagnosis Ascites, liver failure, CHF, renal failure Critical Care Time: No Critical care attestation.: If time is entered above; I have spent that time in minutes in the direct care of this critically ill patient, excluding procedure time. ED Disposition Clinical Impression: Ascites, S/P abdominal paracentesis, End stage renal disease on dialysis Disposition: - TO HOME OR SELFCARE Is pt being admited?: No Does the pt Need Aspirin: No Condition: Stable Instructions: Ascites (ED) Additional Instructions: Follow-up with your doctor or doctor/clinic provided. Return if symptoms worsen as indicated by your discharge instructions. Referrals: JORJE SCHULZ MD [Primary Care Provider] - 3-5 Days Time of Disposition: 17:05
--- NOTE | 2019-10-23 15:51 | Procedure Note ---
Date of procedure: 10/23/19 Pre-op diagnosis: ascites Post-op diagnosis: same Procedure: US paracentesis Findings: ascites Anesthesia: local Surgeon: JOSÉ MIGUEL CHAVIS Estimated blood loss: none Pathology: none Specimen disposition: discarded Condition: stable Disposition: other (back to ER)
--- NOTE | 2019-10-28 12:00 | Ultrasound Report ---
ULTRASOUND-GUIDED PARACENTESIS HISTORY: abd distention, hx of recurrent ascities. PROCEDURE: The risks (including but not limited to bleeding, infection, and bowel injury) and benefi ts were explained to the patient and informed consent was obtained. A time out procedure was perform ed. Ultrasound was used to evaluate the abdomen and locate the largest ascites fluid pocket. Once the sk in was marked, the procedure site was prepped and draped in the usual sterile fashion and lidocaine w as used for local anesthesia. A skin fuad was made and a 5 Portuguese centesis catheter was placed. The patient was monitored closely throughout the procedure, and a total of 4900 mL of clear yellow fluid was aspirated. No labs were ordered. The patient tolerated the procedure well with no complications. IMPRESSION: Successful ultrasound-guided paracentesis as described. Signer Name: Torey Pierson Jr, MD Signed: 10/23/2019 4:07 PM Workstation Name: [id number]
== END 2019-10-23 17:45 | disposition home or self-care (01) ==
LOC: ED 12:39
DX: R18.8 Other ascites (principal); E13.22 Other specified diabetes mellitus with diabetic chronic kidney disease; I13.2 Hypertensive heart and chronic kidney disease with heart failure and with stage 5 chronic kidney disease, or end stage renal disease; I50.9 Heart failure, unspecified; N18.6 End stage renal disease; Z99.2 Dependence on renal dialysis; J44.9 Chronic obstructive pulmonary disease, unspecified; G43.909 Migraine, unspecified, not intractable, without status migrainosus; M19.90 Unspecified osteoarthritis, unspecified site; Z95.818 Presence of other cardiac implants and grafts; Z79.899 Other long term (current) drug therapy
CPT/HCPCS: 36415; 49083; 71045; 80053; 82550; 83735; 85027; 85610; 85730

== ENCOUNTER 2019-11-03 22:59 | Observation (INO) | payer MEDICARE ==
[2019-11-03] MEDS ORDERED: ASPIRIN 325 MG TAB PO ONE (23:23)
[2019-11-04 00:19] LABS: Basophils % (Auto) 1.1 % (0.0-1.8); Eosinophils # (Auto) 0.4 K/mm3 (0.0-0.4); Eosinophils % (Auto) 9.4 % (0.0-4.3); Hematocrit 35.2 % (30.3-42.9); Hemoglobin 11.1 gm/dl (10.1-14.3); Lymphocytes # (Auto) 0.5 K/mm3 (1.2-5.4); Lymphocytes % (Auto) 12.6 % (13.4-35.0); Mean Corpuscular HGB Conc 32 % (30-34); Mean Corpuscular Volume 89 fl (79-97); Monocytes # (Auto) 0.4 K/mm3 (0.0-0.8); Monocytes % (Auto) 10.7 % (0.0-7.3); Platelet Count 126 K/mm3 (140-440); Red Blood Count 3.95 M/mm3 (3.65-5.03); Red Cell Distribution Width 17.7 % (13.2-15.2)
--- NOTE | 2019-11-04 00:30 | XRay Report ---
CHEST 1 VIEW 11/03/2019 11:15 PM INDICATION / CLINICAL INFORMATION: Chest Pain. COMPARISON: 10/23/19 FINDINGS: SUPPORT DEVICES: None. HEART / MEDIASTINUM: Heart is upper normal size for AP portable technique. LUNGS / PLEURA: No significant pulmonary or pleural abnormality. No pneumothorax. ADDITIONAL FINDINGS: No significant additional findings. IMPRESSION: 1. No acute findings. No change. Signer Name: Dior Mccauley MD Signed: 11/04/2019 12:26 AM Workstation Name: [id number]
[2019-11-04 00:43] LABS: Calcium 9.1 mg/dL (8.4-10.2)
[2019-11-04 01:38] LABS: Chol/HDL Ratio 3.65 %
--- NOTE | 2019-11-04 03:21 | Emergency Department Report ---
ED Shortness of Breath HPI - General Chief Complaint: Dyspnea/Respdistress Stated Complaint: SOB Time Seen by Provider: 11/04/19 03:10 Source: patient Mode of arrival: Wheelchair Limitations: No Limitations - History of Present Illness Initial Comments: Patient is a 15-year-old female that presents emergency room with complaints of shortness of breath and abdominal distention and swelling. Patient states she has a history of ascites and feels like she needs to be tapped. Patient states that her shortness of breath and abdominal pain are better with rest and worse with palpation and movement. Patient states she has a past medical history of CHF, CT, hypertension, ascites, kidney disease on dialysis, seizures, arthritis, asthma, COPD, CVA, TIA, diabetes. Patient states her dialysis goes Saturday and she is compliant with her dialysis schedule. Patient states her abdominal pain is a 10 out of 10. Patient states her pain is worsening. Patient states that the pain is intolerable and generally when the pain gets this back she needs to be tapped. Patient denies fever. Patient denies cough. Patient denies chest pain. Patient denies recent travel. Patient denies recent international travel. Patient denies exposure to the novel coronavirus. Patient denies sick contacts. Patient denies fever and chills. Patient denies cough. Patient denies diarrhea. Patient denies coming in contact with anybody with symptoms of the novel coronavirus. Complaint: shortness of breath -: Sudden Severity: severe Pain Scale: 10 Quality: stabbing Consistency: constant Improves With: rest Worsens With: exertion, movement, other Known History Of: congestive heart failure Associated Symptoms: orhopnia Treatments Prior to Arrival: none - Related Data Home Oxygen Therapy: No Home Medications Medication Instructions Recorded Confirmed Last Taken Aspirin EC [Halfprin EC] 81 mg PO QDAY 07/15/19 08/05/19 Unknown Calcium Acetate 667 mg PO TID 07/15/19 08/08/19 Unknown Clopidogrel [Plavix] 75 mg PO QDAY 07/15/19 08/05/19 Unknown Ipratropium (Nf) [Atrovent HFA 2 puff IH Q6HR 07/15/19 08/08/19 Unknown 17MCG/PUFF] Sertraline [Zoloft] 50 mg PO QDAY 07/15/19 08/05/19 Unknown carvediloL [Coreg] 12.5 mg PO BID 07/15/19 08/05/19 Unknown hydrALAZINE [Apresoline TAB] 25 mg PO BID 07/15/19 08/05/19 Unknown Previous Rx's Medication Instructions Recorded Last Taken Type Simvastatin 40 mg PO QHS #30 tablet 07/16/19 Unknown Rx levETIRAcetam [Keppra TAB] 500 mg PO BID #60 tablet 08/08/19 Unknown Rx Allergies Allergy/AdvReac Type Severity Reaction Status Date / Time No Known Allergies Allergy Unverified 10/09/15 20:10 ED Review of Systems ROS: Stated complaint: SOB Other details as noted in HPI Constitutional: denies: chills, fever Eyes: denies: eye pain, eye discharge, vision change ENT: denies: ear pain, throat pain Respiratory: shortness of breath, SOB with exertion, SOB at rest. denies: cough, wheezing Cardiovascular: denies: chest pain, palpitations Endocrine: no symptoms reported Gastrointestinal: abdominal pain. denies: nausea, vomiting, diarrhea Genitourinary: denies: urgency, dysuria, discharge Musculoskeletal: denies: back pain, joint swelling, arthralgia Skin: denies: rash, lesions Neurological: denies: headache, weakness, paresthesias Psychiatric: denies: anxiety, depression Hematological/Lymphatic: denies: easy bleeding, easy bruising ED Past Medical Hx - Past Medical History Previous Medical History?: Yes Hx Hypertension: Yes Hx CVA: Yes (x4, 8 TIAs) Hx Heart Attack/AMI: Yes (2017) Hx Congestive Heart Failure: Yes Hx Diabetes: Yes Hx Liver Disease: No Hx Renal Disease: Yes Hx Arthritis: Yes Hx Headaches / Migraines: Yes Hx Seizures: Yes Hx Asthma: Yes Hx COPD: Yes (inhalers prn) Hx HIV: No - Surgical History Past Surgical History?: Yes Hx Coronary Stent: Yes (x 3) Hx Pacemaker: No Hx Internal Defibrillator: No Hx Breast Surgery: Yes (reduction (1979)) Additional Surgical History: breast reduction 1979, av fistula left arm - Family History Family history: no significant - Social History Smoking Status: Never Smoker Substance Use Type: None - Medications Home Medications: Home Medications Medication Instructions Recorded Confirmed Last Taken Type Aspirin EC [Halfprin EC] 81 mg PO QDAY 07/15/19 08/05/19 Unknown History Calcium Acetate 667 mg PO TID 07/15/19 08/08/19 Unknown History Clopidogrel [Plavix] 75 mg PO QDAY 07/15/19 08/05/19 Unknown History Ipratropium (Nf) [Atrovent HFA 2 puff IH Q6HR 07/15/19 08/08/19 Unknown History 17MCG/PUFF] Sertraline [Zoloft] 50 mg PO QDAY 07/15/19 08/05/19 Unknown History carvediloL [Coreg] 12.5 mg PO BID 07/15/19 08/05/19 Unknown History hydrALAZINE [Apresoline TAB] 25 mg PO BID 07/15/19 08/05/19 Unknown History Simvastatin 40 mg PO QHS #30 tablet 07/16/19 08/05/19 Unknown Rx levETIRAcetam [Keppra TAB] 500 mg PO BID #60 tablet 08/08/19 Unknown Rx ED Physical Exam - General Limitations: No Limitations General appearance: alert, in no apparent distress - Head Head exam: Present: atraumatic, normocephalic - Eye Eye exam: Present: normal appearance - ENT ENT exam: Present: mucous membranes moist - Neck Neck exam: Present: normal inspection - Respiratory Respiratory exam: Present: normal lung sounds bilaterally. Absent: respiratory distress - Cardiovascular Cardiovascular Exam: Present: regular rate, normal rhythm. Absent: systolic murmur, diastolic murmur, rubs, gallop - GI/Abdominal GI/Abdominal exam: Present: soft, distended, tenderness, normal bowel sounds - Extremities Exam Extremities exam: Present: normal inspection - Back Exam Back exam: Present: normal inspection - Neurological Exam Neurological exam: Present: alert, oriented X3 - Psychiatric Psychiatric exam: Present: normal affect, normal mood - Skin Skin exam: Present: warm, dry, intact, normal color. Absent: rash ED Course Vital Signs 11/03/19 11/04/19 11/04/19 23:17 03:34 03:46 Temperature 98.6 F Pulse Rate 87 81 Respiratory 18 15 15 Rate Blood Pressure 160/80 Blood Pressure 191/91 [Left] O2 Sat by Pulse 96 98 99 Oximetry - Reevaluation(s) Reevaluation #1: I discussed all results with patient. I discussed plan of care with patient. Patient agrees with plan of care and admission. Patient to be admitted to the hospitalist service. Patient still complaining of severe pain. Patient will be given Dilaudid and have an IV placed. 11/04/19 03:57 Reevaluation #2: Patient states the pain is improved. 11/04/19 04:42 - Consultations Consultation #1: Hospitalist consulted for admission. Hospitalist to admit patient. Bridge orders placed. 11/04/19 03:57 ED Medical Decision Making - Lab Data Result diagrams: 11/03/19 23:51 11/03/19 23:51 - EKG Data -: EKG Interpreted by Me EKG shows normal: sinus rhythm, axis, intervals, QRS complexes, ST-T waves Rate: normal - Radiology Data Radiology results: report reviewed, image reviewed CHEST 1 VIEW 11/03/2019 11:15 PM INDICATION / CLINICAL INFORMATION: Chest Pain. COMPARISON: 10/23/19 FINDINGS: SUPPORT DEVICES: None. HEART / MEDIASTINUM: Heart is upper normal size for AP portable technique. LUNGS / PLEURA: No significant pulmonary or pleural abnormality. No pneumothorax. ADDITIONAL FINDINGS: No significant additional findings. IMPRESSION: 1. No acute findings. No change. - Medical Decision Making Patient is a 59-year-old female that presents emergency room with complaints of shortness of breath, abdominal pain and abdominal distention. Patient by request for fluid volume overload in the abdominal cavity and ascites. Patient admitted to the hospitalist service. Patient's chest x-ray is negative for CHF findings. Patient chest x-ray negative for acute findings. Patient's EKG is within normal limits. Patient's labs are consistent with end-stage renal disease. Patient admitted to the hospitalist service for therapeutic and ultrasound-guided paracentesis. - Differential Diagnosis Ascites, shortness of breath, CHF, ACS, abdominal pain Critical Care Time: Yes Critical care time in (mins) excluding proc time.: 35 Critical care attestation.: If time is entered above; I have spent that time in minutes in the direct care of this critically ill patient, excluding procedure time. Critical Care Time: 35 minutes ED Disposition Clinical Impression: ESRD (end stage renal disease), SOB (shortness of breath) Ascites Qualifiers: Ascites type: other type Qualified Code(s): R18.8 - Other ascites Volume overload Qualifiers: Hypervolemia type: unspecified Qualified Code(s): E87.70 - Fluid overload, unspecified Abdominal pain Qualifiers: Abdominal location: generalized Qualified Code(s): R10.84 - Generalized abdominal pain Disposition: DC-09 OP ADMIT IP TO THIS HOSP Is pt being admited?: Yes Does the pt Need Aspirin: No Condition: Critical Time of Disposition: 03:57
[2019-11-04] MEDS ORDERED: HYDROmorphone 1 MG/1 ML INJ IV ONE (03:53)
[2019-11-04] MEDS ORDERED: ONDANSETRON 4 MG/2 ML INJ IV PRN (05:24)
[2019-11-04] MEDS ORDERED: ACETAMINOPHEN 325 MG TAB PO PRN (05:24)
[2019-11-04] MEDS ORDERED: DEXTROSE 50% IN WATER (25GM) 50 ML SYRINGE IV PRN (05:24)
--- NOTE | 2019-11-04 05:30 | History and Physical Report ---
History of Present Illness History of present illness: 59-year-old woman with multiple medical problems including end-stage renal disease on dialysis, CHF, hypertension, diabetes, coronary artery disease, seizure, CVA comes emergency room for evaluation. She stated she had increased abdominal girth, discomfort over the last few days and needs to be tapped. Last time she was tapped was 1/2 weeks ago. Patient will be admitted for paracentesi s currently evaluation of elevated cardiac enzymes Review Of Systems: Constitutional: no weight loss, fever, chills Ears, eyes, nose, mouth and throat: no nasal congestion, no nasal discharge, no sinus pressure, blurry vision, diplopia Neck: No neck pain or rigidity. Cardiovascular: No palpitations, chest pain Respiratory: No shortness of breath, cough Gastrointestinal: No hematochezia Genitourinary : no dysuria, frequency Musculoskeletal: no muscle ache , joint pain Integumentary: no rash, no pruritis Neurological: no parathesias, focal weakness Endocrine: no cold or heat intolerance, no polyuria or polydipsia Hematologic/Lymphatic: no easy bruising, no easy bleeding, no gland swelling Allergic/Immunologic: no urticaria, no angioedema. PAST MEDICAL HISTORY: End-stage renal disease on dialysis, CHF, hypertension, diabetes, coronary artery disease, seizure, CVA PAST SURGICAL HISTORY: AV fistula, cataract extraction, breast reduction SOCIAL HISTORY: Denies alcohol, tobacco, drugs FAMILY HISTORY: Hypertension Medications and Allergies Allergies Allergy/AdvReac Type Severity Reaction Status Date / Time No Known Allergies Allergy Unverified 10/09/15 20:10 Home Medications Medication Instructions Recorded Confirmed Last Taken Type Aspirin EC [Halfprin EC] 81 mg PO QDAY 07/15/19 08/05/19 Unknown History Calcium Acetate 667 mg PO TID 07/15/19 08/08/19 Unknown History Clopidogrel [Plavix] 75 mg PO QDAY 07/15/19 08/05/19 Unknown History Ipratropium (Nf) [Atrovent HFA 2 puff IH Q6HR 07/15/19 08/08/19 Unknown History 17MCG/PUFF] Sertraline [Zoloft] 50 mg PO QDAY 07/15/19 08/05/19 Unknown History carvediloL [Coreg] 12.5 mg PO BID 07/15/19 08/05/19 Unknown History hydrALAZINE [Apresoline TAB] 25 mg PO BID 07/15/19 08/05/19 Unknown History Simvastatin 40 mg PO QHS #30 tablet 07/16/19 08/05/19 Unknown Rx levETIRAcetam [Keppra TAB] 500 mg PO BID #60 tablet 08/08/19 Unknown Rx Active Meds: Active Medications Acetaminophen (Tylenol) 650 mg PO Q4H PRN PRN Reason: Pain MILD(1-3)/Fever >100.5/MCDANIEL Dextrose (D50w (25gm) Syringe) 50 ml IV Q30MIN PRN; Protocol PRN Reason: Hypoglycemia Enoxaparin Sodium (Enoxaparin) 30 mg SUB-Q QDAY LENCHO Hydralazine HCl (Apresoline) 5 mg IV Q6H PRN PRN Reason: Hypertension Insulin Human Lispro (Humalog) 0 unit SUB-Q ACHS LENCHO; Protocol Ondansetron HCl (Zofran) 4 mg IV Q8H PRN PRN Reason: Nausea And Vomiting Oxycodone/Acetaminophen (Percocet 5/325) 1 tab PO Q6H PRN PRN Reason: Pain, Moderate (4-6) Sodium Chloride (Sodium Chloride Flush Syringe 10 Ml) 10 ml IV BID LENCHO Sodium Chloride (Sodium Chloride Flush Syringe 10 Ml) 10 ml IV PRN PRN PRN Reason: LINE FLUSH Exam - Physical Exam Narrative exam: Gen. appearance: Patient lying in bed, no apparent distress HEENT: Normocephalic, atraumatic, pupils equally round and reactive to light, extraocular movement intact, and no sclericterus,. No JVD or thyromegaly or nodule,neck supple, no carotid bruit ,mucous membranes moist, no exudate or erythema Heart: S1, S2, regular rate and rhythm Lungs: Clear bilaterally, breathing comfortable Abdomen: Positive bowel sounds, nontender, nondistended, no organomegaly Extremity: no edema, cyanosis, clubbing Skin: No rash, nodules, warm, dry Neuro: Cranial nerves II to XII intact, speech is fluent, moves extremities, sensory intact - Constitutional Vitals: Temp Pulse Resp BP Pulse Ox 98.6 F 81 15 191/91 99 11/03/19 23:17 11/04/19 03:34 11/04/19 03:46 11/04/19 03:34 11/04/19 03:46 Results - Labs CBC & Chem 7: 11/03/19 23:51 11/03/19 23:51 Labs: Abnormal lab results 11/03/19 11/03/19 11/04/19 Range/Units 23:51 23:51 02:21 WBC 3.8 L (4.5-11.0) K/mm3 RDW 17.7 H (13.2-15.2) % Plt Count 126 L (140-440) K/mm3 Lymph % (Auto) 12.6 L (13.4-35.0) % [place] % (Auto) 10.7 H (0.0-7.3) % Eos % (Auto) 9.4 H (0.0-4.3) % Lymph # 0.5 L (1.2-5.4) K/mm3 BUN 48 H (7-17) mg/dL Creatinine 9.6 H (0.7-1.2) mg/dL Troponin T 0.181 H* 0.178 H* (0.00-0.029) ng/mL Triglycerides 203 H (2-149) mg/dL - Imaging and Cardiology EKG: image reviewed Chest x-ray: report reviewed Assessment and Plan Assessment Abdominal discomfort with ascites Check ultrasound of the abdomen, consult interventional radiology for paracentesis Percocet for pain End-stage renal disease Consult nephrology for dialysis Elevated troponin, chronic Check cardiac enzymes, status post stress test last year which was negative Hypertension IV hydralazine for blood pressure control, restart outpatient medication diabetes mellitus We will monitor Accu-Cheks, start sliding scale seizure, restart outpatient medications DVT prophylaxis
[2019-11-04 06:16] LABS: Creatine Kinase MB 3.2 ng/mL (0.0-4.0)
--- NOTE | 2019-11-04 06:52 | Ultrasound Report ---
ULTRASOUND ABDOMEN, COMPLETE INDICATION / CLINICAL INFORMATION: pain. History of recurrent ascites. COMPARISON: Ultrasound dated 10/23/19 FINDINGS: PANCREAS: Not well visualized due to bowel gas. ABDOMINAL AORTA: No significant abnormality. IVC: No significant abnormality. LIVER: No significant abnormality. GALLBLADDER: Small gallstone, unchanged. No definite gallbladder wall thickening. BILE DUCTS: No significant abnormality. Common bile duct measures 1.7 mm. KIDNEYS: Right: Small and echogenic. No hydronephrosis. Left: Small and echogenic. No hydronephrosis. SPLEEN: Borderline splenomegaly measuring 12.6 cm in length. FREE FLUID: Small amount of free fluid in the abdomen. ADDITIONAL FINDINGS: None. IMPRESSION: 1. Borderline splenomegaly with small amount of ascites, unchanged. 2. Cholelithiasis, unchanged. 3. Small, echogenic kidneys characteristic of medical renal disease. No hydronephrosis. Signer Name: Dior Mccauley MD Signed: 11/04/2019 6:48 AM Workstation Name: [id number]
[2019-11-04] MEDS ORDERED: ASPIRIN 325 MG TAB ONE (07:08)
[2019-11-04] MEDS: INSULIN LISPRO 100 UNIT/ML SUB-Q SCH ×4 (07:53→23:53)
[2019-11-04] MEDS ORDERED: ENOXAPARIN 30 MG/0.3 ML INJ SUB-Q SCH (10:00)
[2019-11-04] MEDS: hydrALAZINE 20 MG/1 ML INJ IV PRN (10:56)
[2019-11-04] MEDS ORDERED: SODIUM CHLORIDE 0.9% 100 ML IV PRN (11:12)
--- NOTE | 2019-11-04 11:20 | Consultation ---
History of Present Illness - Reason for Consult end stage renal disease - History of Present Illness This is a 59 year-old woman with ESRD who presents for shortness of breath, ascites. Patient usually dialyzes MWF at [facility]. Last HD 11/01. Denies any recent issues with HD, including dizziness, lightheadedness, cramping, chest pain on HD. Currently, patient denies any new issues including access issues, nausea, vomiting, headaches. Does have shortness of breath and abdominal swelling, no lower extremity swelling noted. Past History Past Medical History: CAD, ESRD Past Surgical History: No surgical history Social history: no significant social history Family history: no significant family history Medications and Allergies Allergies Allergy/AdvReac Type Severity Reaction Status Date / Time No Known Allergies Allergy Unverified 10/09/15 20:10 Home Medications Medication Instructions Recorded Confirmed Last Taken Type Aspirin EC [Halfprin EC] 81 mg PO QDAY 07/15/19 11/04/19 11/03/19 History Calcium Acetate 667 mg PO TID 07/15/19 11/04/19 11/03/19 History Clopidogrel [Plavix] 75 mg PO QDAY 07/15/19 11/04/19 11/03/19 History Ipratropium (Nf) [Atrovent HFA 2 puff IH Q6HR 07/15/19 11/04/19 Unknown History 17MCG/PUFF] Sertraline [Zoloft] 50 mg PO QDAY 07/15/19 11/04/19 11/03/19 History carvediloL [Coreg] 12.5 mg PO BID 07/15/19 11/04/19 11/03/19 History hydrALAZINE [Apresoline TAB] 25 mg PO BID 07/15/19 11/04/19 11/03/19 History Simvastatin 40 mg PO QHS #30 tablet 07/16/19 11/04/19 11/02/19 Rx levETIRAcetam [Keppra TAB] 500 mg PO BID #60 tablet 08/08/19 11/04/19 11/03/19 Rx Active Meds: Active Medications Acetaminophen (Tylenol) 650 mg PO Q4H PRN PRN Reason: Pain MILD(1-3)/Fever >100.5/MCDANIEL Dextrose (D50w (25gm) Syringe) 0 ml IV Q30MIN PRN; Protocol PRN Reason: Hypoglycemia Hydralazine HCl (Apresoline) 5 mg IV Q6H PRN PRN Reason: Hypertension Last Admin: 11/04/19 10:56 Dose: 5 mg Documented by: Sodium Chloride (Nacl 0.9%) 100 mls @ 999 mls/hr IV GREY PRN PRN Reason: Hypotension Insulin Human Lispro (Humalog) 0 unit SUB-Q ACHS LENCHO; Protocol Last Admin: 11/04/19 07:53 Dose: Not Given Documented by: Ondansetron HCl (Zofran) 4 mg IV Q8H PRN PRN Reason: Nausea And Vomiting Oxycodone/Acetaminophen (Percocet 5/325) 1 tab PO Q6H PRN PRN Reason: Pain, Moderate (4-6) Sodium Chloride (Sodium Chloride Flush Syringe 10 Ml) 10 ml IV BID [facility] Last Admin: 11/04/19 10:56 Dose: 10 ml Documented by: Sodium Chloride (Sodium Chloride Flush Syringe 10 Ml) 10 ml IV PRN PRN PRN Reason: LINE FLUSH Review of Systems All systems: negative (as per HPI) Exam - Vital Signs Vital signs: Vital Signs Temp Pulse Resp BP Pulse Ox 98.6 F 87 18 160/80 96 11/03/19 23:17 11/03/19 23:17 11/03/19 23:17 11/03/19 23:17 11/03/19 23:17 - Physical Exam Narrative exam: Constitutional: no acute distress Head: NC/AT Neck: supple Lungs: clear to auscultation CV: RRR, no M/R/G Abdomen: soft, non-tender, bowel sounds present, ascites noted Back: nontender Extremities: no edema, pulses WNL Skin: intact Neuro: no focal deficits, alert and oriented x4 Results - Lab Results 11/03/19 23:51 11/03/19 23:51 Most recent lab results Calcium 9.1 mg/dL (8.4-10.2) 11/03/19 23:51 Assessment and Plan This is a 59 year old woman who presents with ascites, shortness of breath # ESRD: will continue HD today per MWF schedule; no known cardiac abnormality noted with HD, but will monitor closely - daily labs - renally dose meds - avoid nephrotoxins - renal diet # Anemia: last hemoglobin 11.1, no CAITLYN indication # Tropinemia: follow, hold HD if concern for acute coronary syndrome prn # Ascites: potential paracentesis, appreciate IR # HTN: UF as tolerated. BP high, continue home meds # Secondary Hyperparathyroidism: continue home binders as needed
--- NOTE | 2019-11-04 11:22 | Progress Note ---
Assessment and Plan Assessment and plan: --Worsening ascites Follow abdominal ultrasound, CT/US-guided paracentesis Pain management --End-stage renal disease; on hemodialysis HD per schedule nephrology consulted --Elevated troponin, chronic/NSTEMI 2 Nonspecific elevation of troponins, stress test negative last year Closely monitor consult cardiology if needed --Hypertension; moderate control Continue current antihypertensives and PRN medications --Type II diabetes mellitus Accu-Chek sliding scale coverage ADA diet Insulin as needed --History of seizure disorder; Seizure precautions, resume antiepileptic medications Supportive care --DVT prophylaxis; SCDs, Lovenox held pending procedure Monitor closely and adjust management as needed Advance care 35 minutes History Interval history: Patient seen and examined medical records reviewed Patient was admitted with worsening ascites Scheduled for ultrasound-guided abdominal paracentesis today Patient complains of mild shortness of breath Hospitalist Physical - Constitutional Vitals: Temp Pulse Resp BP Pulse Ox 97.6 F 81 21 195/88 98 11/04/19 10:23 11/04/19 10:23 11/04/19 10:23 11/04/19 10:23 11/04/19 10:23 General appearance: Present: mild distress, well-nourished - EENT Eyes: Present: PERRL, EOM intact - Neck Neck: Present: supple, normal ROM - Respiratory Respiratory effort: normal Respiratory: bilateral: diminished, rales, negative: rhonchi, wheezing - Cardiovascular Rhythm: regular Heart Sounds: Present: S1 & S2 - Extremities Extremities: no ischemia Extremity abnormal: edema - Abdominal General gastrointestinal: soft, non-tender, distended, normal bowel sounds, other (Ascites) - Integumentary Integumentary: Present: clear, warm - Psychiatric Psychiatric: appropriate mood/affect, cooperative - Neurologic Neurologic: moves all extremities Results - Labs CBC & Chem 7: 11/03/19 23:51 11/03/19 23:51 Labs: Laboratory Last Values WBC 3.8 K/mm3 (4.5-11.0) L 11/03/19 23:51 RBC 3.95 M/mm3 (3.65-5.03) 11/03/19 23:51 Hgb 11.1 gm/dl (10.1-14.3) 11/03/19 23:51 Hct 35.2 % (30.3-42.9) 11/03/19 23:51 MCV 89 fl (79-97) 11/03/19 23:51 MCH 28 pg (28-32) 11/03/19 23:51 MCHC 32 % (30-34) 11/03/19 23:51 RDW 17.7 % (13.2-15.2) H 11/03/19 23:51 Plt Count 126 K/mm3 (140-440) L 11/03/19 23:51 Lymph % (Auto) 12.6 % (13.4-35.0) L 11/03/19 23:51 [place] % (Auto) 10.7 % (0.0-7.3) H 11/03/19 23:51 Eos % (Auto) 9.4 % (0.0-4.3) H 11/03/19 23:51 Baso % (Auto) 1.1 % (0.0-1.8) 11/03/19 23:51 Lymph # 0.5 K/mm3 (1.2-5.4) L 11/03/19 23:51 [place] # 0.4 K/mm3 (0.0-0.8) 11/03/19 23:51 Eos # 0.4 K/mm3 (0.0-0.4) 11/03/19 23:51 Baso # 0.0 K/mm3 (0.0-0.1) 11/03/19 23:51 Seg Neutrophils % 66.2 % (40.0-70.0) 11/03/19 23:51 Seg Neutrophils # 2.5 K/mm3 (1.8-7.7) 11/03/19 23:51 Sodium 141 mmol/L (137-145) 11/03/19 23:51 Potassium 4.8 mmol/L (3.6-5.0) 11/03/19 23:51 Chloride 99.2 mmol/L (98-107) 11/03/19 23:51 Carbon Dioxide 25 mmol/L (22-30) 11/03/19 23:51 Anion Gap 22 mmol/L 11/03/19 23:51 BUN 48 mg/dL (7-17) H 11/03/19 23:51 Creatinine 9.6 mg/dL (0.7-1.2) H 11/03/19 23:51 Estimated GFR 5 ml/min 11/03/19 23:51 BUN/Creatinine Ratio 5 % 11/03/19 23:51 Glucose 98 mg/dL (65-100) 11/03/19 23:51 POC Glucose 81 (70-105) 11/04/19 08:03 Calcium 9.1 mg/dL (8.4-10.2) 11/03/19 23:51 Total Creatine Kinase 46 units/L (30-135) 11/04/19 05:30 CK-MB (CK-2) 3.2 ng/mL (0.0-4.0) 11/04/19 05:30 CK-MB (CK-2) Rel Index 6.9 (0-4) H 11/04/19 05:30 Troponin T 0.180 ng/mL (0.00-0.029) H* 11/04/19 05:30 Triglycerides 203 mg/dL (2-149) H 11/03/19 23:51 Cholesterol 168 mg/dL (50-199) 11/03/19 23:51 LDL Cholesterol Direct 104 mg/dL (50-130) 11/03/19 23:51 HDL Cholesterol 46 mg/dL (40-59) 11/03/19 23:51 Cholesterol/HDL Ratio 3.65 % 11/03/19 23:51 [place]/IV: Voiding Method Toilet Active Medications - Current Medications Current Medications: Generic Name Dose Route Start Last Admin Trade Name Freq PRN Reason Stop Dose Admin Acetaminophen 650 mg 11/04/19 05:24 Tylenol PO Q4H PRN Pain MILD(1-3)/Fever >100.5/MCDANIEL Dextrose 0 ml 11/04/19 05:24 D50w (25gm) Syringe IV Q30MIN PRN Hypoglycemia Protocol Hydralazine HCl 5 mg 11/04/19 05:28 11/04/19 10:56 Apresoline IV 5 mg Q6H PRN Administration Hypertension Sodium Chloride 100 mls @ 999 mls/hr 11/04/19 11:12 Nacl 0.9% IV GREY PRN Hypotension Insulin Human Lispro 0 unit 11/04/19 07:30 11/04/19 07:53 Humalog SUB-Q Not Given ACHS LENCHO Protocol Ondansetron HCl 4 mg 11/04/19 05:24 Zofran IV Q8H PRN Nausea And Vomiting Oxycodone/Acetaminophen 1 tab 11/04/19 05:24 Percocet 5/325 PO Q6H PRN Pain, Moderate (4-6) Sodium Chloride 10 ml 11/04/19 10:00 11/04/19 10:56 Sodium Chloride Flush Syringe 10 Ml IV 10 ml BID LENCHO Administration Sodium Chloride 10 ml 11/04/19 05:24 Sodium Chloride Flush Syringe 10 Ml IV PRN PRN LINE FLUSH
[2019-11-04 13:50] LABS: Creatine Kinase MB 3.1 ng/mL (0.0-4.0)
[2019-11-04 13:53] LABS: Hepatitis B Surface Antigen Non-Reactive (Negative); Hepatitis C Virus Antibody Non-Reactive (NonReactive)
[2019-11-04] MEDS ORDERED: SODIUM CHLORIDE*PRIMING MACHINE ONLY FOR DIALYSIS MC ONE (19:02)
[2019-11-04] MEDS: oxyCODONE /ACETAMINOPHEN 5-325MG TAB PO PRN (22:25)
[2019-11-05 06:43] LABS: Basophils % (Auto) 1.4 % (0.0-1.8); Eosinophils # (Auto) 0.3 K/mm3 (0.0-0.4); Eosinophils % (Auto) 10.3 % (0.0-4.3); Hematocrit 31.8 % (30.3-42.9); Hemoglobin 10.2 gm/dl (10.1-14.3); Lymphocytes # (Auto) 0.5 K/mm3 (1.2-5.4); Lymphocytes % (Auto) 16.7 % (13.4-35.0); Mean Corpuscular HGB Conc 32 % (30-34); Mean Corpuscular Volume 89 fl (79-97); Monocytes # (Auto) 0.4 K/mm3 (0.0-0.8); Monocytes % (Auto) 12.3 % (0.0-7.3); Platelet Count 101 K/mm3 (140-440); Red Blood Count 3.58 M/mm3 (3.65-5.03); Red Cell Distribution Width 17.2 % (13.2-15.2)
[2019-11-05 07:05] LABS: Calcium 8.7 mg/dL (8.4-10.2)
[2019-11-05] MEDS: INSULIN LISPRO 100 UNIT/ML SUB-Q SCH ×2 (08:00→13:27)
[2019-11-05] MEDS: oxyCODONE /ACETAMINOPHEN 5-325MG TAB PO PRN (09:31)
--- NOTE | 2019-11-05 11:41 | Progress Note ---
Assessment and Plan Assessment and plan: Abdominal paracentesis today --Worsening ascites Follow abdominal ultrasound, CT/US-guided paracentesis Pain management --End-stage renal disease; on hemodialysis HD per schedule nephrology consulted --Elevated troponin, chronic/NSTEMI 2 Nonspecific elevation of troponins, stress test negative last year Closely monitor consult cardiology if needed --Hypertension; moderate control Continue current antihypertensives and PRN medications --Type II diabetes mellitus Accu-Chek sliding scale coverage ADA diet Insulin as needed --History of seizure disorder; Seizure precautions, resume antiepileptic medications Supportive care --DVT prophylaxis; SCDs, Lovenox held pending procedure Monitor closely and adjust management as needed Advance care 35 minutes Hospitalist Physical - Constitutional Vitals: Temp Pulse Resp BP Pulse Ox 98.4 F 89 18 164/91 97 11/05/19 08:16 11/05/19 08:16 11/05/19 08:16 11/05/19 08:16 11/05/19 09:48 General appearance: Present: mild distress, well-nourished Results - Labs CBC & Chem 7: 11/05/19 05:24 11/05/19 05:24 Labs: Laboratory Last Values WBC 2.9 K/mm3 (4.5-11.0) L 11/05/19 05:24 RBC 3.58 M/mm3 (3.65-5.03) L 11/05/19 05:24 Hgb 10.2 gm/dl (10.1-14.3) 11/05/19 05:24 Hct 31.8 % (30.3-42.9) 11/05/19 05:24 MCV 89 fl (79-97) 11/05/19 05:24 MCH 29 pg (28-32) 11/05/19 05:24 MCHC 32 % (30-34) 11/05/19 05:24 RDW 17.2 % (13.2-15.2) H 11/05/19 05:24 Plt Count 101 K/mm3 (140-440) L 11/05/19 05:24 Lymph % (Auto) 16.7 % (13.4-35.0) 11/05/19 05:24 [place] % (Auto) 12.3 % (0.0-7.3) H 11/05/19 05:24 Eos % (Auto) 10.3 % (0.0-4.3) H 11/05/19 05:24 Baso % (Auto) 1.4 % (0.0-1.8) 11/05/19 05:24 Lymph # 0.5 K/mm3 (1.2-5.4) L 11/05/19 05:24 [place] # 0.4 K/mm3 (0.0-0.8) 11/05/19 05:24 Eos # 0.3 K/mm3 (0.0-0.4) 11/05/19 05:24 Baso # 0.0 K/mm3 (0.0-0.1) 11/05/19 05:24 Seg Neutrophils % 59.3 % (40.0-70.0) 11/05/19 05:24 Seg Neutrophils # 1.7 K/mm3 (1.8-7.7) L 11/05/19 05:24 Sodium 142 mmol/L (137-145) 11/05/19 05:24 Potassium 4.4 mmol/L (3.6-5.0) 11/05/19 05:24 Chloride 99.8 mmol/L (98-107) 11/05/19 05:24 Carbon Dioxide 24 mmol/L (22-30) 11/05/19 05:24 Anion Gap 23 mmol/L 11/05/19 05:24 BUN 29 mg/dL (7-17) H 11/05/19 05:24 Creatinine 7.1 mg/dL (0.7-1.2) H 11/05/19 05:24 Estimated GFR 7 ml/min 11/05/19 05:24 BUN/Creatinine Ratio 4 % 11/05/19 05:24 Glucose 77 mg/dL (65-100) 11/05/19 05:24 POC Glucose 92 (70-105) 11/04/19 22:14 Calcium 8.7 mg/dL (8.4-10.2) 11/05/19 05:24 Total Creatine Kinase 37 units/L (30-135) 11/04/19 12:57 CK-MB (CK-2) 3.1 ng/mL (0.0-4.0) 11/04/19 12:57 CK-MB (CK-2) Rel Index 8.3 (0-4) H 11/04/19 12:57 Troponin T 0.163 ng/mL (0.00-0.029) H* 11/04/19 12:57 Triglycerides 203 mg/dL (2-149) H 11/03/19 23:51 Cholesterol 168 mg/dL (50-199) 11/03/19 23:51 LDL Cholesterol Direct 104 mg/dL (50-130) 11/03/19 23:51 HDL Cholesterol 46 mg/dL (40-59) 11/03/19 23:51 Cholesterol/HDL Ratio 3.65 % 11/03/19 23:51 Hepatitis A IgM Ab Non-reactive (NonReactive) 11/04/19 12:57 Hep Bs Antigen Non-reactive (Negative) 11/04/19 12:57 Hep B Core IgM Ab Non-reactive (NonReactive) 11/04/19 12:57 Hepatitis C Antibody Non-reactive (NonReactive) 11/04/19 12:57 [place]/IV: Voiding Method Toilet IV Catheter Type [Left Upper INT / Saline Lock arm] IV Catheter Type [Right AV fistula Forearm] Active Medications - Current Medications Current Medications: Generic Name Dose Route Start Last Admin Trade Name Freq PRN Reason Stop Dose Admin Acetaminophen 650 mg 11/04/19 05:24 Tylenol PO Q4H PRN Pain MILD(1-3)/Fever >100.5/MCDANIEL Dextrose 0 ml 11/04/19 05:24 D50w (25gm) Syringe IV Q30MIN PRN Hypoglycemia Protocol Hydralazine HCl 5 mg 11/04/19 05:28 11/04/19 10:56 Apresoline IV 5 mg Q6H PRN Administration Hypertension Sodium Chloride 100 mls @ 999 mls/hr 11/04/19 11:12 Nacl 0.9% IV GREY PRN Hypotension Insulin Human Lispro 0 unit 11/04/19 07:30 11/05/19 08:00 Humalog SUB-Q Not Given ACHS [facility] Protocol Ondansetron HCl 4 mg 11/04/19 05:24 Zofran IV Q8H PRN Nausea And Vomiting Oxycodone/Acetaminophen 1 tab 11/04/19 05:24 11/05/19 09:31 Percocet 5/325 PO 1 tab Q6H PRN Administration Pain, Moderate (4-6) Sodium Chloride 10 ml 11/04/19 10:00 11/05/19 09:33 Sodium Chloride Flush Syringe 10 Ml IV 10 ml BID LENCHO Administration Sodium Chloride 10 ml 11/04/19 05:24 Sodium Chloride Flush Syringe 10 Ml IV PRN PRN LINE FLUSH Nutrition/Malnutrition Assess - Dietary Evaluation Nutrition/Malnutrition Findings: Nutrition Notes Start: 11/04/19 12:36 Freq: Status: Active Protocol: Document 11/04/19 12:36 LM (Rec: 11/04/19 12:42 LM [id number]) Nutrition Notes Need for Assessment generated from: MD Order,automatic driller and reamer,MST Initial or Follow up Brief Note Current Diagnosis CKD (stage V CKD),Diabetes, Heart Failure,Stroke Other Pertinent Diagnosis seizures, ascites Current Diet cardiac/consisent CHO and renal Labs/Tests BG 83 Pertinent Medications Reviewed Height 5 ft 9 in Weight 63.957 kg [place] Body Weight (kg) 65.90 BMI 20.8 Weight change and time frame 49% wt loss in 3 years Weight Status Appropriate Subjective/Other Information MD consult for decreased PO intakes, ONS. RN screen for difficulty chewing and MST. 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 Pt stated she has had no recent wt loss but weighed 275 in 2016. Pt stated she has maintained her current wt and no longer losing wt. Pt denied any difficulty chewing or swallowing. Per chart, pt ate 100% of breakfast this AM. Nutrition Intervention Change Diet Order: Renal/cardiac Revisit per MD consult or patient Sign Off request:
--- NOTE | 2019-11-05 12:36 | Procedure Note ---
Date of procedure: 11/05/19 Pre-op diagnosis: ascites Post-op diagnosis: same Procedure: US paracentesis Findings: moderate ascites Anesthesia: local Surgeon: JOSÉ MIGUEL CHAVIS Estimated blood loss: none Pathology: none Specimen disposition: discarded Condition: stable Disposition: floor
[2019-11-05] MEDS: hydrALAZINE 20 MG/1 ML INJ IV PRN (13:00)
--- NOTE | 2019-11-05 13:18 | Progress Note ---
Objective - Vital Signs Vital signs: Vital Signs - 12hr 11/05/19 11/05/19 11/05/19 01:43 01:44 08:16 Temperature 98.4 F 98.4 F Pulse Rate 78 78 89 Respiratory 18 18 Rate Blood Pressure 132/72 164/91 O2 Sat by Pulse 98 99 98 Oximetry 11/05/19 11/05/19 09:00 09:48 Temperature Pulse Rate Respiratory Rate Blood Pressure O2 Sat by Pulse 98 97 Oximetry - Lab 11/05/19 05:24 11/05/19 05:24 Most recent lab results Calcium 8.7 mg/dL (8.4-10.2) 11/05/19 05:24 Medications & Allergies - Medications Allergies/Adverse Reactions: Allergies No Known Allergies Allergy (Unverified 10/09/15 20:10) Home Medications: Home Medications Medication Instructions Recorded Confirmed Last Taken Type Aspirin EC [Halfprin EC] 81 mg PO QDAY 07/15/19 11/04/19 11/03/19 History Calcium Acetate 667 mg PO TID 07/15/19 11/04/19 11/03/19 History Clopidogrel [Plavix] 75 mg PO QDAY 07/15/19 11/04/19 11/03/19 History Ipratropium (Nf) [Atrovent HFA 2 puff IH Q6HR 07/15/19 11/04/19 Unknown History 17MCG/PUFF] Sertraline [Zoloft] 50 mg PO QDAY 07/15/19 11/04/19 11/03/19 History carvediloL [Coreg] 12.5 mg PO BID 07/15/19 11/04/19 11/03/19 History hydrALAZINE [Apresoline TAB] 25 mg PO BID 07/15/19 11/04/19 11/03/19 History Simvastatin 40 mg PO QHS #30 tablet 07/16/19 11/04/19 11/02/19 Rx levETIRAcetam [Keppra TAB] 500 mg PO BID #60 tablet 08/08/19 11/04/19 11/03/19 Rx Active Medications: Generic Name Dose Route Start Last Admin Trade Name Freq PRN Reason Stop Dose Admin Acetaminophen 650 mg 11/04/19 05:24 Tylenol PO Q4H PRN Pain MILD(1-3)/Fever >100.5/MCDANIEL Dextrose 0 ml 11/04/19 05:24 D50w (25gm) Syringe IV Q30MIN PRN Hypoglycemia Protocol Hydralazine HCl 5 mg 11/04/19 05:28 11/04/19 10:56 Apresoline IV 5 mg Q6H PRN Administration Hypertension Sodium Chloride 100 mls @ 999 mls/hr 11/04/19 11:12 Nacl 0.9% IV GREY PRN Hypotension Insulin Human Lispro 0 unit 11/04/19 07:30 11/05/19 08:00 Humalog SUB-Q Not Given ACHS [facility] Protocol Ondansetron HCl 4 mg 11/04/19 05:24 Zofran IV Q8H PRN Nausea And Vomiting Oxycodone/Acetaminophen 1 tab 11/04/19 05:24 11/05/19 09:31 Percocet 5/325 PO 1 tab Q6H PRN Administration Pain, Moderate (4-6) Sodium Chloride 10 ml 11/04/19 10:00 11/05/19 09:33 Sodium Chloride Flush Syringe 10 Ml IV 10 ml BID LENCHO Administration Sodium Chloride 10 ml 11/04/19 05:24 Sodium Chloride Flush Syringe 10 Ml IV PRN PRN LINE FLUSH
--- NOTE | 2019-11-05 13:28 | Discharge Summary ---
Providers - Providers Date of Admission: 11/04/19 04:20 Date of discharge: 11/05/19 Attending physician: DAREN CONROY 11/04/19 05:24 Consult to Physician [CONS] Routine Comment: Consulting Provider: KERRY BURROWS Physician Instructions: Reason For Exam: hd 11/04/19 05:27 Consult to Interventional Radiology [CONS] Routine Consulting Provider: PAIGE PACHECO Reason For Exam: paracentesis Place consult to:: Dr. Pacheco Notified:: Lucy Phone number called:: Was contact made?: Yes If yes, spoke with:: Darinel-office Time called:: 09:47 11/04/19 11:17 Consult to Dietitian/Nutrition [CONS] Routine Physician Instructions: Reason For Exam: Reason for Consult: decreased PO intake Primary care physician: [facility] Hospitalization Reason for admission: Worsening ascites/fluid overload Condition: Stable Pertinent studies: Abdominal ultrasound; borderline splenomegaly small amount of ascites cholelithiasis echogenic kidneys medical renal disease no hydronephrosis Procedures: Ultrasound-guided paracentesis; removal of 5.1 L peritoneal fluid Hospital course: 59-year-old woman with multiple medical problems including end-stage renal disease on dialysis, CHF, hypertension, diabetes, coronary artery disease, seizure, CVA comes emergency room for evaluation. She stated she had increased abdominal girth, discomfort over the last few days and needs to be tapped. Last time she was tapped was 1/2 weeks ago. Patient will be admitted for paracentesis currently evaluation of elevated cardiac enzymes Patient was admitted evaluated by nephrology had hemodialysis, patient underwent ultrasound-guided abdominal paracentesis and removal of 5.1 L of peritoneal fluid, tolerated the procedure well Today patient is comfortable no new complaints vital signs stable physical examination unremarkable Hemodynamically stable at discharge advised to follow primary care physician, nephrology, GI per schedule Discharge diagnosis: and management --Worsening ascites/fluid overload Follow abdominal ultrasound, US-guided paracentesis therapeutic removal of 5.1 L peritoneal fluid --End-stage renal disease; on hemodialysis HD per schedule nephrology consulted --Elevated troponin, chronic/NSTEMI 2 Nonspecific elevation of troponins, stress test negative last year Closely monitor consult cardiology if needed --Hypertension; moderate control Continue current antihypertensives and PRN medications --Type II diabetes mellitus Accu-Chek sliding scale coverage ADA diet Insulin as needed --History of seizure disorder; Seizure precautions, resume antiepileptic medications Supportive care --DVT prophylaxis; SCDs, Lovenox held pending procedure Stable at discharge Disposition: JALEN TO HOME OR SELFCARE Time spent for discharge: 32 min Core Measure Documentation - Palliative Care Palliative Care/ Comfort Measures: Not Applicable - Core Measures Any of the following diagnoses?: none Exam - Constitutional Vitals: Temp Pulse Resp BP Pulse Ox 98.4 F 89 18 164/91 97 11/05/19 08:16 11/05/19 08:16 11/05/19 08:16 11/05/19 08:16 11/05/19 09:48 General appearance: Present: no acute distress, well-nourished - EENT Eyes: Present: PERRL, EOM intact - Neck Neck: Present: supple, normal ROM - Respiratory Respiratory effort: normal Respiratory: bilateral: diminished, negative: rales, rhonchi, wheezing - Cardiovascular Rhythm: regular Heart Sounds: Present: S1 & S2 - Extremities Extremities: no ischemia, No edema - Abdominal General gastrointestinal: Present: soft, non-tender, non-distended, normal bowel sounds, other (Ascites ) - Integumentary Integumentary: Present: clear, warm - Musculoskeletal Musculoskeletal: strength equal bilaterally - Psychiatric Psychiatric: appropriate mood/affect, cooperative - Neurologic Neurologic: CNII-XII intact, moves all extremities Plan Activity: advance as tolerated Diet: low salt Additional Instructions: Follow renal, hemodialysis per schedule MWF. Advised to follow primary care physician, GI per schedule Follow up with: JORJE SCHULZ MD [Primary Care Provider] - 3-5 Days NIDIA WATSON MD [Staff Physician] - 7 Days
--- NOTE | 2019-11-05 13:57 | Ultrasound Report ---
ULTRASOUND-GUIDED PARACENTESIS HISTORY: Ascites. PROCEDURE: The risks (including but not limited to bleeding, infection, and bowel injury) and benefi ts were explained to the patient and informed consent was obtained. A time out procedure was perform ed. Ultrasound was used to evaluate the abdomen and locate the largest ascites fluid pocket. Once the sk in was marked, the procedure site was prepped and draped in the usual sterile fashion and lidocaine w as used for local anesthesia. A skin fuad was made and a 5 [place] centesis catheter was placed. The patient was monitored closely throughout the procedure, and a total of 5100 mL of clear yellow fluid was aspirated. No labs were ordered. The patient tolerated the procedure well with no complications. IMPRESSION: Successful ultrasound-guided paracentesis as described. Signer Name: Torey Pierson Jr, MD Signed: 11/05/2019 1:53 PM Workstation Name: [id number]
[2019-11-05 16:09] VITALS: BP 151/66
== END 2019-11-05 16:18 | disposition home or self-care (01) ==
LOC: ED 22:59 → INTOOBSV 11-04 04:20 → 3A 11-04 04:20 → 4A 11-04 09:00
PROVIDERS: ADMIT Internal Medicine; ATTEND Internal Medicine
DX: R18.8 Other ascites (principal); E87.70 Fluid overload, unspecified; I13.2 Hypertensive heart and chronic kidney disease with heart failure and with stage 5 chronic kidney disease, or end stage renal disease; E11.22 Type 2 diabetes mellitus with diabetic chronic kidney disease; N18.6 End stage renal disease; I50.9 Heart failure, unspecified; R79.89 Other specified abnormal findings of blood chemistry; R56.9 Unspecified convulsions; I25.10 Atherosclerotic heart disease of native coronary artery without angina pectoris; M19.90 Unspecified osteoarthritis, unspecified site; J44.9 Chronic obstructive pulmonary disease, unspecified; Z86.73 Personal history of transient ischemic attack (TIA), and cerebral infarction without residual deficits; Z98.49 Cataract extraction status, unspecified eye; Z95.5 Presence of coronary angioplasty implant and graft; Z79.82 Long term (current) use of aspirin; Z79.899 Other long term (current) drug therapy
CPT/HCPCS: 36415; 49083; 71045; 76700; 80048; 80061; 80074; 82550; 82553; 82962; 84484; 85025; 93005; 93010; 96374; 96375; 96376; 99291; G0257; G0378; J0360; J1170; J7030

== ENCOUNTER 2019-11-14 21:58 | Emergency (ER) | payer MEDICARE ==
[2019-11-14] MEDS ORDERED: oxyCODONE /ACETAMINOPHEN 5-325MG TAB PO ONE (22:37)
--- NOTE | 2019-11-14 23:00 | XRay Report ---
CHEST 1 VIEW INDICATION / CLINICAL INFORMATION: esrd abd pain. COMPARISON: 11/04/2019 FINDINGS: SUPPORT DEVICES: None. HEART / MEDIASTINUM: No significant abnormality. LUNGS / PLEURA: No significant pulmonary or pleural abnormality. No pneumothorax. ADDITIONAL FINDINGS: No significant additional findings. IMPRESSION: 1. No acute findings. Signer Name: Allan Patel MD Signed: 11/14/2019 10:55 PM Workstation Name: [id number]
[2019-11-14 23:13] LABS: Calcium 8.9 mg/dL (8.4-10.2)
--- NOTE | 2019-11-14 23:28 | Emergency Department Report ---
ED General Adult HPI - General Chief complaint: Dyspnea/Respdistress Stated complaint: ABD SWELLING Time Seen by Provider: 11/14/19 22:28 Source: patient, EMS ( EMS documentation not available at time of chart dictation ), RN notes reviewed, old records reviewed Mode of arrival: Ambulatory Limitations: No Limitations - History of Present Illness Initial comments: Nephrology: Dr. Batista The patient is a 59-year-old female. I have evaluated her in the past. Her past medical history includes end-stage renal disease on hemodialysis, CHF, hypertension, diabetes, heart disease, seizure, stroke,. She was admitted to this hospital at the end of October for fluid overload requiring ultrasound-guided paracentesis. Please see her discharge summary. The patient receives hemodialysis currently Saturday, Saturday, Saturday, received hemodialysis yesterday, which was of normal length and duration. She comes in today with a complaint of gradual abdominal swelling, pressure and discomfort, present for approximately the past day and a half. She denies additional injuries, and denies additional complaints. There is no complaint of cough, fever, or exposure to coronavirus. I contacted her private priest, Dr. Batista, And she informed me that the patient was set up to follow-up with outpatient gastroenterology, Dr. Calhoun, for elective outpatient paracenteses. For unclear reasons, the patient was informed by her primary care doctor that she did not need to follow-up, and therefore, the patient canceled her appointment. -: days(s) Location: abdomen Severity scale (0 -10): 6 Quality: aching Consistency: constant Improves with: medication, rest, other (Paracentesis) Worsens with: other (Palpation) - Related Data Home Medications Medication Instructions Recorded Confirmed Last Taken Aspirin EC [Halfprin EC] 81 mg PO QDAY 07/15/19 11/04/19 11/03/19 Calcium Acetate 667 mg PO TID 07/15/19 11/04/19 11/03/19 Clopidogrel [Plavix] 75 mg PO QDAY 07/15/19 11/04/19 11/03/19 Ipratropium (Nf) [Atrovent HFA 2 puff IH Q6HR 07/15/19 11/04/19 Unknown 17MCG/PUFF] Sertraline [Zoloft] 50 mg PO QDAY 07/15/19 11/04/19 11/03/19 carvediloL [Coreg] 12.5 mg PO BID 07/15/19 11/04/19 11/03/19 hydrALAZINE [Apresoline TAB] 25 mg PO BID 07/15/19 11/04/19 11/03/19 Previous Rx's Medication Instructions Recorded Last Taken Type Simvastatin 40 mg PO QHS #30 tablet 07/16/19 11/02/19 Rx levETIRAcetam [Keppra TAB] 500 mg PO BID #60 tablet 08/08/19 11/03/19 Rx Allergies Allergy/AdvReac Type Severity Reaction Status Date / Time No Known Allergies Allergy Unverified 10/09/15 20:10 ED Review of Systems ROS: Stated complaint: ABD SWELLING Other details as noted in HPI Constitutional: denies: fever Eyes: denies: eye discharge ENT: denies: congestion Respiratory: denies: wheezing Cardiovascular: denies: syncope Gastrointestinal: abdominal pain. denies: nausea, vomiting, diarrhea, constipation, hematemesis, melena Genitourinary: as per HPI. denies: urgency Musculoskeletal: as per HPI Skin: as per HPI Neurological: as per HPI Psychiatric: as per HPI Hematological/Lymphatic: as per HPI ED Past Medical Hx - Past Medical History Previous Medical History?: Yes Hx Hypertension: Yes Hx CVA: Yes (x4, 8 TIAs) Hx Heart Attack/AMI: Yes (2017) Hx Congestive Heart Failure: Yes Hx Diabetes: Yes Hx Liver Disease: No Hx Renal Disease: Yes (dialysis 2015) Hx Arthritis: Yes Hx Headaches / Migraines: Yes Hx Seizures: Yes Hx Asthma: Yes Hx COPD: Yes (inhalers prn) Hx HIV: No - Surgical History Past Surgical History?: Yes Hx Coronary Stent: Yes (x 3) Hx Pacemaker: No Hx Internal Defibrillator: No Hx Breast Surgery: Yes (reduction (1979)) Additional Surgical History: breast reduction 1979, av fistula left arm - Social History Smoking Status: Never Smoker Substance Use Type: None - Medications Home Medications: Home Medications Medication Instructions Recorded Confirmed Last Taken Type Aspirin EC [Halfprin EC] 81 mg PO QDAY 07/15/19 11/04/19 11/03/19 History Calcium Acetate 667 mg PO TID 07/15/19 11/04/19 11/03/19 History Clopidogrel [Plavix] 75 mg PO QDAY 07/15/19 11/04/19 11/03/19 History Ipratropium (Nf) [Atrovent HFA 2 puff IH Q6HR 07/15/19 11/04/19 Unknown History 17MCG/PUFF] Sertraline [Zoloft] 50 mg PO QDAY 07/15/19 11/04/19 11/03/19 History carvediloL [Coreg] 12.5 mg PO BID 07/15/19 11/04/19 11/03/19 History hydrALAZINE [Apresoline TAB] 25 mg PO BID 07/15/19 11/04/19 11/03/19 History Simvastatin 40 mg PO QHS #30 tablet 07/16/19 11/04/19 11/02/19 Rx levETIRAcetam [Keppra TAB] 500 mg PO BID #60 tablet 08/08/19 11/04/19 11/03/19 Rx ED Physical Exam - General Limitations: No Limitations General appearance: alert - Head Head exam: Present: atraumatic, normocephalic - Eye Eye exam: Present: normal appearance, EOMI. Absent: nystagmus - ENT ENT exam: Present: normal exam, normal orophraynx, mucous membranes moist, normal external ear exam - Neck Neck exam: Present: normal inspection, full ROM - Respiratory Respiratory exam: Present: normal lung sounds bilaterally. Absent: respiratory distress, wheezes, stridor, decreased breath sounds - Cardiovascular Cardiovascular Exam: Present: regular rate, normal rhythm, normal heart sounds. Absent: bradycardia, tachycardia, irregular rhythm, systolic murmur, diastolic murmur, rubs, gallop - GI/Abdominal GI/Abdominal exam: Present: soft, distended. Absent: tenderness, guarding, rebound, rigid, pulsatile mass - Extremities Exam Extremities exam: Present: normal inspection (Left upper extremity fistula, without redness, pus or streaking), full ROM, other (2+ pulses noted in the bilateral upper and lower extremities. There is no palpable cord. negative Homans sign. Muscular compartments are soft. The pelvis is stable.). Absent: pedal edema, calf tenderness - Back Exam Back exam: Present: normal inspection. Absent: tenderness, CVA tenderness (R), CVA tenderness (L), paraspinal tenderness, vertebral tenderness - Neurological Exam Neurological exam: Present: alert, other (There is no facial droop. The tongue is midline. Extraocular movements are intact bilaterally. There is 5 out of 5 strength in bilateral upper and lower extremities. Sensation is intact to light touch bilateral upper and lower extremities. ). Absent: motor sensory deficit - Psychiatric Psychiatric exam: Present: anxious - Skin Skin exam: Present: warm, dry, intact, normal color. Absent: rash ED Course Vital Signs 11/14/19 11/14/19 11/14/19 22:24 22:43 22:44 Temperature Pulse Rate 90 88 Respiratory 18 21 21 Rate Blood Pressure 190/90 O2 Sat by Pulse 95 99 98 Oximetry 11/14/19 11/14/19 11/14/19 22:45 23:15 23:36 Temperature 98.3 F Pulse Rate 86 Respiratory 17 13 Rate Blood Pressure 189/91 171/79 O2 Sat by Pulse 98 96 Oximetry - Reevaluation(s) Reevaluation #1: 11/14/19 23:37 Feeling improved. Blood pressure improved, 153/75. Discussed need to follow-up as an outpatient with gastroenterology. Patient endorsed understanding. ED Medical Decision Making - Lab Data Result diagrams: 11/14/19 22:42 Vital Signs 11/14/19 11/14/19 11/14/19 22:24 22:43 22:44 Pulse Rate 90 88 Respiratory 18 21 21 Rate Blood Pressure 190/90 O2 Sat by Pulse 95 99 98 Oximetry 11/14/19 22:45 Pulse Rate 86 Respiratory 17 Rate Blood Pressure 189/91 O2 Sat by Pulse 98 Oximetry - EKG Data -: EKG Interpreted by Ak EKG shows normal: sinus rhythm Rate: normal - EKG Data When compared to previous EKG there are: no significant change 11/14/19 23:23 The EKG today shows a sinus rhythm, 84 bpm, normal axis, QTC 466 ms, left ventricular hypertrophy, atrial enlargement, unchanged from prior EKG from October 2019. This EKG is not a STEMI. - Radiology Data Radiology results: report reviewed, image reviewed Print Report Referring Physician: RAYNE ROCHA Patient Name: JOSE MCNAIR Date of : 1960 Sex: Female Report Date: 2019-11-14 Report Status: Finalized Findings [address] [place] [address] XRay Report Signed Patient: JOSE MCNAIR MR#: [id number] : 1960 Acct:[id number] Age/Sex: 59 / F ADM Date: 11/14/19 Loc: ED Attending Dr: Ordering Physician: RAYNE ROCHA MD Date of Service: 11/14/19 Procedure(s): XR chest 1V ap Accession Number(s): [id number] cc: RAYNE ROCHA MD Fluoro Time In Minutes: CHEST 1 VIEW INDICATION / CLINICAL INFORMATION: esrd abd pain. COMPARISON: 11/04/2019 FINDINGS: SUPPORT DEVICES: None. HEART / MEDIASTINUM: No significant abnormality. LUNGS / PLEURA: No significant pulmonary or pleural abnormality. No pneumothorax. ADDITIONAL FINDINGS: No significant additional fi ndings. IMPRESSION: 1. No acute findings. Signer Name: Allan Patel MD Signed: 11/14/2019 10:55 PM Workstation Name: [id number] Transcribed By: [place] Dictated By: Allan Patel MD Electronically Authenticated By: Allan Patel MD Signed Date/Time: 11/14/192254 DD/ 54 TD/TT: - Medical Decision Making Differential diagnosis, including but not limited to: Recurrent ascites, end- stage renal disease Assessment and plan: 59-year-old female who is afebrile with reassuring vital signs with the exception of chronic hypertension, please reference the [employer] clinical policy on hypertension which is not acutely symptomatic, presenting with recurrent abdominal ascites. She does not have significant tenderness, rebound or guarding. Her exam is very unlikely to be consistent with spontaneous bacterial periton itis, and therefore, she does not require an emergent paracentesis. Patient arrived after hours, and at the moment, interventional radiology is not available to perform a large-volume paracentesis. She is saturating well, not hypoxic, with clear lungs, does not require emergent paracentesis or meet criteria for hospitalization at this time. The patient will be provided with the contact information of the local gastroenterology practice, and she will need to arrange outpatient follow-up for semi-elective paracentesis. Critical care attestation.: If time is entered above; I have spent that time in minutes in the direct care of this critically ill patient, excluding procedure time. ED Disposition Clinical Impression: ESRD (end stage renal disease) Ascites Qualifiers: Ascites type: other type Qualified Code(s): R18.8 - Other ascites Disposition: TO HOME OR SELFCARE Is pt being admited?: No Does the pt Need Aspirin: No Condition: Stable Additional Instructions: Continue current outpatient medications. Contact gastroenterology practice on Saturday to arrange outpatient follow-up for outpatient paracentesis/fluid drainage. Rest, avoid heavy lifting, and avoid strenuous physical activities. Return to the emergency room right away with new, worsened or different symptoms, or symptoms not present on the initial emergency room evaluation. Referrals: PAIGE CALHOUN MD [Staff Physician] - 3-5 Days [facility] [Provider Group] - 3-5 Days
[2019-11-14 23:30] VITALS: BP 171/79
== END 2019-11-15 | disposition home or self-care (01) ==
LOC: ED 21:58
DX: E11.22 Type 2 diabetes mellitus with diabetic chronic kidney disease (principal); I13.2 Hypertensive heart and chronic kidney disease with heart failure and with stage 5 chronic kidney disease, or end stage renal disease; I50.9 Heart failure, unspecified; N18.6 End stage renal disease; G40.909 Epilepsy, unspecified, not intractable, without status epilepticus; R18.8 Other ascites; J45.909 Unspecified asthma, uncomplicated; K21.9 Gastro-esophageal reflux disease without esophagitis; Z90.49 Acquired absence of other specified parts of digestive tract; Z79.82 Long term (current) use of aspirin; Z79.899 Other long term (current) drug therapy
CPT/HCPCS: 36415; 71045; 80048; 82550; 83735; 93005; 93010

== ENCOUNTER 2019-12-01 07:00 | Emergency (ER) | payer MEDICARE ==
--- NOTE | 2019-12-01 07:56 | Emergency Department Report ---
HPI - General Chief Complaint: Abdominal Pain Time Seen by Provider: 12/01/19 07:43 - HPI HPI: 59-year-old -[place] female presents to the emergency department via EMS from dialysis with a complaint of some abdominal pain and "I think I need to get another tap." Patient has a history of abdominal ascites and says that she last got a paracentesis done here. The patient says she thought it was about 2 weeks ago but it appears to be at the end of October. There is some record that the patient has been told to follow-up outpatient with gastroenterology for elective paracentesis but she has not done so. The patient completed about 1 hour of di alysis today. She also has a past medical history of CHF, COPD, CVA, diabetes, migraine headaches, coronary artery disease with MS, hypertension and is end- stage renal disease on hemodialysis on Saturday/Saturday/Saturday. Her athletic scout is Dr. Batista. ED Past Medical Hx - Past Medical History Hx Hypertension: Yes Hx CVA: Yes (x4, 8 TIAs) Hx Heart Attack/AMI: Yes (2017) Hx Congestive Heart Failure: Yes Hx Diabetes: Yes Hx Liver Disease: No Hx Renal Disease: Yes (dialysis 2015) Hx Arthritis: Yes Hx Headaches / Migraines: Yes Hx Seizures: Yes Hx Asthma: Yes Hx COPD: Yes (inhalers prn) Hx HIV: No - Surgical History Hx Coronary Stent: Yes (x 3) Hx Pacemaker: No Hx Internal Defibrillator: No Hx Breast Surgery: Yes (reduction (1979)) Additional Surgical History: breast reduction 1979, av fistula left arm - Social History Smoking Status: Never Smoker - Medications Home Medications: Home Medications Medication Instructions Recorded Confirmed Last Taken Type Albuterol Sulfate [Proair 90 mcg IH Q6HR 12/01/19 12/01/19 Unknown History Digihaler] Aspirin EC [Halfprin EC] 81 mg PO QDAY 12/01/19 12/01/19 Unknown History AtorvaSTATin [Lipitor] 20 mg PO QHS 12/01/19 12/01/19 Unknown History Brimonidine Tartrate/Timolol 10 ml OP BID 12/01/19 12/01/19 Unknown History [Combigan 0.2%-0.5% Eye Drops] Calcium Acetate 2,001 mg PO TID 12/01/19 12/01/19 Unknown History Calcium Carbonate [Tums 500MG CHEW] 750 mg PO QHS 12/01/19 12/01/19 Unknown History Clopidogrel [Plavix] 75 mg PO QDAY 12/01/19 12/01/19 Unknown History Fluticasone [Flonase] 1 spray NS QDAY 12/01/19 12/01/19 Unknown History Gabapentin [Neurontin] 600 mg PO TID 12/01/19 12/01/19 Unknown History Hydralazine HCl 50 mg PO BID 12/01/19 12/01/19 Unknown History Losartan [Cozaar] 25 mg PO QDAY 12/01/19 12/01/19 Unknown History Mirtazapine [Remeron 15mg TAB] 15 mg PO QHS 12/01/19 12/01/19 Unknown History Omeprazole 40 mg PO QDAY 12/01/19 12/01/19 Unknown History Ondansetron [Zofran ODT TAB] 8 mg PO Q8HR PRN 12/01/19 12/01/19 Unknown History Torsemide [Demadex] 20 mg PO QDAY 12/01/19 12/01/19 Unknown History calcitrioL [Rocaltrol] 1 mcg PO QDAY 12/01/19 12/01/19 Unknown History carvediloL [Coreg] 12.5 mg PO BID 12/01/19 12/01/19 Unknown History levETIRAcetam [Keppra XR TAB] 500 mg PO QDAY 12/01/19 12/01/19 Unknown History traMADoL [Ultram 50 MG tab] 50 mg PO Q6HR PRN #10 tablet 12/01/19 Unknown Rx ED Review of Systems ROS: Stated complaint: ABD PAIN Other details as noted in HPI Comment: All other systems reviewed and negative Constitutional: denies: chills, fever Eyes: denies: eye pain, vision change ENT: denies: ear pain, throat pain Respiratory: denies: cough, shortness of breath Cardiovascular: denies: chest pain, palpitations Gastrointestinal: abdominal pain. denies: vomiting Genitourinary: denies: dysuria, discharge Musculoskeletal: denies: back pain, arthralgia Skin: denies: rash, lesions Neurological: denies: headache, weakness Physical Exam - Physical Exam Vital Signs: Vital Signs 12/01/19 12/01/19 07:30 07:33 Temperature 97.7 F Pulse Rate 78 88 Respiratory 18 18 Rate Blood Pressure 145/79 129/77 [Right] O2 Sat by Pulse 100 95 Oximetry Physical Exam: GENERAL: The patient is well-developed well-nourished. HENT: Normocephalic. Atraumatic. Patient has moist mucous membranes. EYES: Extraocular motions are intact. NECK: Supple. Trachea is midline. CHEST/LUNGS: Clear to auscultation. There is no respiratory distress noted. HEART/CARDIOVASCULAR: Regular. There is no tachycardia. ABDOMEN: Abdomen is soft. Mild generalized tenderness to palpation. No guarding. Patient has normal bowel sounds. Fluid heard to auscultation of the abdomen concerning for ascites. SKIN: Skin is warm and dry. NEURO: The patient is awake, alert, and oriented. The patient is cooperative. The patient has no focal neurologic deficits. Normal speech. MUSCULOSKELETAL: There is no tenderness or deformity. There is no evidence of acute injury. ED Course Vital Signs 12/01/19 12/01/19 07:30 07:33 Temperature 97.7 F Pulse Rate 78 88 Respiratory 18 18 Rate Blood Pressure 145/79 129/77 [Right] O2 Sat by Pulse 100 95 Oximetry - Consultations Consultation #1: 12/01/19 11:[address] Clemons, the athletic scout on-call for [facility] nephrology. He is familiar with this patient. He agrees that the patient does not appear to require emergent dialysis and can follow-up outpatient with her normal dialysis schedule. He also is aware that the patient has been noncompliant with her outpatient follow-up with gastroenterology for recurrent paracentesis. ED Medical Decision Making - Lab Data Result diagrams: 12/01/19 Unknown 12/01/19 Unknown - Radiology Data Radiology results: report reviewed, image reviewed interpreted by me: Abdominal x-ray shows nonspecific nonobstructive bowel gas. ULTRASOUND ABDOMEN, COMPLETE INDICATION: abd pain. COMPARISON: None available. FINDINGS: Pancreas: Normal. Abdominal Aorta: Normal. IVC: Normal. Liver: Measures 14 cm in length and is heterogeneous in texture and slightly nodular. No focal liver mass seen. Gallbladder: Wall is slightly thickened at 4 mm. A gallstone is present. Bile ducts: Normal. Common Bile Duct measures 3.1 mm. Right Kidney: Markedly atrophic Left Kidney: Markedly atrophic as well. Spleen: Only measures 10 cm and is unremarkable. Free fluid: Large volume ascites is s een. Additional Findings: None. IMPRESSION: 1. Findings suggest cirrhosis with portal hypertension although the spleen is nonenlarged. Gallstone is seen and I suspect the wall thickening may be due to the surrounding ascites. Kidneys are atrophic as well. - Medical Decision Making This patient presents to the emergency department with complaint of some abdom inal pain that started while she was getting dialysis this morning and the complaint of needing a paracentesis for her cirrhosis with recurrent ascites. Patient's labs have been unremarkable except for the renal insufficiency consistent with her end-stage renal disease. No hyperkalemia. Abdominal x-ray was read as concern for some ascites. Abdominal ultrasound once again shows liver cirrhosis with ascites. I spoke to the patient's athletic scout who does not feel that the patient needs emergent dialysis at this point and can follow- up outpatient from a nephrology standpoint. The patient has a history of noncompliance with follow-up with gastroenterology for elective outpatient paracentesis. At first, I was going to attempt to get a ultrasound paracentesis completed through the emergency department. However the interventional radiologist did not feel comfortable doing the ultrasound at this time secondary to the patient's thrombocytopenia and history of being on Plavix. The patient had said that she thought she was off Plavix for the past week but we could not confirm this. Although patient does have the apparent ascites, she does not appear to require any emergent paracentesis and can follow-up outpatient. She has once again been given the referral information for [facility]. She is also been instructed to return to the emergency department immediately with any worsening of her symptoms or with any acute distress. The patient acknowledges understanding and agrees with the plan. Critical Care Time: No Critical care attestation.: If time is entered above; I have spent that time in minutes in the direct care of this critically ill patient, excluding procedure time. ED Disposition Clinical Impression: ESRD on dialysis, Thrombocytopenia Abdominal ascites Qualifiers: Ascites type: other type Qualified Code(s): R18.8 - Other ascites Disposition: DC-01 TO HOME OR SELFCARE Is pt being admited?: No Condition: Stable Instructions: Ascites (ED), Abdominal Pain (ED), Thrombocytopenia (ED), End- Stage Kidney Disease (ED) Additional Instructions: Please follow-up with your primary care physician in the next few days. Please follow-up with Dr. Calhoun and/or 1 of the physicians at [facility] for outpatient paracentesis and further evaluation of your cirrhosis. Return to the emergency department immediately with any worsening of your symptoms or any acute distress. You have been prescribed a medication that is sedating and therefore should not be taken prior to driving, working, and responsible for children and in no way should be mixed with alcohol of any quantity. Prescriptions: traMADoL [Ultram 50 MG tab] 50 mg PO Q6HR PRN #10 tablet PRN Reason: Pain Referrals: PAIGE CALHOUN MD [Staff Physician] - 2-3 Days Time of Disposition: 11:14
[2019-12-01 08:10] LABS: Basophils % (Auto) 0.8 % (0.0-1.8); Eosinophils # (Auto) 0.1 K/mm3 (0.0-0.4); Hematocrit 41.9 % (30.3-42.9); Hemoglobin 13.6 gm/dl (10.1-14.3); Lymphocytes # (Auto) 0.3 K/mm3 (1.2-5.4); Lymphocytes % (Auto) 11.8 % (13.4-35.0); Mean Corpuscular HGB Conc 33 % (30-34); Mean Corpuscular Volume 88 fl (79-97); Monocytes # (Auto) 0.2 K/mm3 (0.0-0.8); Red Blood Count 4.75 M/mm3 (3.65-5.03); Red Cell Distribution Width 16.7 % (13.2-15.2)
[2019-12-01 08:14] LABS: Platelet Count 88 K/mm3 (140-440)
--- NOTE | 2019-12-01 08:24 | XRay Report ---
ABDOMEN 3 VIEW(S) INDICATION / CLINICAL INFORMATION: Abd pain. COMPARISON: 11/14/2019 FINDINGS: TUBES / LINES: None. BOWEL GAS PATTERN: General paucity of bowel gas with suggestion of ascites. Nonobstructive bowel gas pattern. FREE AIR / EXTRALUMINAL GAS: None seen. ADDITIONAL FINDINGS: No significant additional findings. IMPRESSION: 1. Findings suggestive of ascites with nonobstructive bowel gas pattern. Signer Name: Rui Landis MD Signed: 12/01/2019 8:20 AM Workstation Name: [id number]
[2019-12-01 08:33] LABS: Albumin 3.2 g/dL (3.9-5); BUN/Creatinine Ratio 3; Bilirubin,Direct 0.2 mg/dL (0-0.2); Blood Urea Nitrogen 21 mg/dL (7-17); Calcium 9.1 mg/dL (8.4-10.2); Hemolysis Index 7
[2019-12-01 08:58] LABS: Alanine Aminotransferase < 5 units/L (7-56)
[2019-12-01] MEDS ORDERED: oxyCODONE /ACETAMINOPHEN 5-325MG TAB PO ONE (09:31)
--- NOTE | 2019-12-01 11:07 | Ultrasound Report ---
ULTRASOUND ABDOMEN, COMPLETE INDICATION: abd pain. COMPARISON: None available. FINDINGS: Pancreas: Normal. Abdominal Aorta: Normal. IVC: Normal. Liver: Measures 14 cm in length and is heterogeneous in texture and slightly nodular. No focal liver mass seen. Gallbladder: Wall is slightly thickened at 4 mm. A gallstone is present. Bile ducts: Normal. Common Bile Duct measures 3.1 mm. Right Kidney: Markedly atrophic Left Kidney: Markedly atrophic as well. Spleen: Only measures 10 cm and is unremarkable. Free fluid: Large volume ascites is seen. Additional Findings: None. IMPRESSION: 1. Findings suggest cirrhosis with portal hypertension although the spleen is nonenlarged. Gallstone is seen and I suspect the wall thickening may be due to the surrounding ascites. Kidneys are atrophic as well. Signer Name: Lewis Perales MD Signed: 12/01/2019 11:03 AM Workstation Name: [id number]
[2019-12-01 11:49] VITALS: BP 138/80
== END 2019-12-01 12:11 | disposition home or self-care (01) ==
LOC: ED 07:00
DX: I13.2 Hypertensive heart and chronic kidney disease with heart failure and with stage 5 chronic kidney disease, or end stage renal disease (principal); N18.6 End stage renal disease; E11.22 Type 2 diabetes mellitus with diabetic chronic kidney disease; I50.9 Heart failure, unspecified; R18.8 Other ascites; D69.6 Thrombocytopenia, unspecified; M19.90 Unspecified osteoarthritis, unspecified site; J44.9 Chronic obstructive pulmonary disease, unspecified; G43.909 Migraine, unspecified, not intractable, without status migrainosus; Z86.69 Personal history of other diseases of the nervous system and sense organs; Z98.890 Other specified postprocedural states; Z86.73 Personal history of transient ischemic attack (TIA), and cerebral infarction without residual deficits; Z79.899 Other long term (current) drug therapy; Z99.2 Dependence on renal dialysis
CPT/HCPCS: 36415; 74019; 76700; 80048; 80076; 83690; 85025

== ENCOUNTER 2020-04-19 13:50 | Observation (INO) | payer MEDICARE ==
[2020-04-19 14:58] LABS: Basophils % (Auto) 0.5 % (0.0-1.8); Eosinophils % (Auto) 0.3 % (0.0-4.3); Hematocrit 22.4 % (30.3-42.9); Hemoglobin 7.2 gm/dl (10.1-14.3); Lymphocytes # (Auto) 0.3 K/mm3 (1.2-5.4); Lymphocytes % (Auto) 7.3 % (13.4-35.0); Mean Corpuscular HGB Conc 32 % (30-34); Mean Corpuscular Volume 86 fl (79-97); Monocytes # (Auto) 0.3 K/mm3 (0.0-0.8); Platelet Count 265 K/mm3 (140-440); Red Blood Count 2.61 M/mm3 (3.65-5.03); Red Cell Distribution Width 16.5 % (13.2-15.2)
[2020-04-19 15:17] LABS: Albumin 1.7 g/dL (3.9-5); Blood Urea Nitrogen 70 mg/dL (7-17); Hemolysis Index 3
[2020-04-19 15:29] LABS: Alanine Aminotransferase < 5 units/L (7-56); BUN/Creatinine Ratio 5
[2020-04-19] MEDS ORDERED: ONDANSETRON 4 MG/2 ML INJ IV ONE (17:25)
--- NOTE | 2020-04-19 17:29 | Emergency Department Report ---
ED General Adult HPI - General Chief complaint: Medical Clearance Stated complaint: DIALYSIS Time Seen by Provider: 04/19/20 17:16 Source: patient Mode of arrival: Ambulatory Limitations: No Limitations - History of Present Illness Initial comments: Patient is 60 years old female with history of end-stage renal disease on hemodialysis. Patient presented to the ER stating that she missed 2 dialysis session because she had history of nausea vomiting and diarrhea. Patient stated that she went to her dialysis center today and they asked her to come to the ER. Patient denied any fever or chills. No chest pain but she is having some shortness of breath. - Related Data Home Medications Medication Instructions Recorded Confirmed Last Taken Brimonidine Tartrate/Timolol 10 ml OP BID 12/01/19 02/21/20 01/18/20 [Combigan 0.2%-0.5% Eye Drops] Fluticasone [Flonase] 1 spray NS QDAY 12/01/19 02/21/20 01/18/20 Previous Rx's Medication Instructions Recorded Last Taken Type Albuterol Sulfate [Proair 90 mcg IH Q6HR 30 Days 02/02/20 Unknown Rx Digihaler] Aspirin EC [Halfprin EC] 81 mg PO QDAY #30 tablet 02/02/20 02/20/20 Rx AtorvaSTATin [Lipitor] 40 mg PO QHS #30 tablet 02/02/20 02/20/20 Rx Calcium Acetate 2,001 mg PO TID #90 02/02/20 02/20/20 Rx Calcium Carbonate [Tums 500MG CHEW] 750 mg PO QHS #30 02/02/20 02/20/20 Rx Clopidogrel [Plavix] 75 mg PO QDAY #30 02/02/20 02/19/20 Rx Gabapentin [Neurontin] 800 mg PO TID #90 tab 02/02/20 02/20/20 Rx Hydralazine HCl 50 mg PO BID #60 tab 02/02/20 02/20/20 Rx Losartan [Cozaar] 50 mg PO QDAY #30 tablet 02/02/20 02/20/20 Rx Metoprolol [Lopressor TAB] 25 mg PO BID #60 tablet 02/02/20 02/20/20 Rx Mirtazapine [Remeron 15mg TAB] 15 mg PO QHS #30 tab 02/02/20 02/20/20 Rx Ondansetron [Zofran ODT TAB] 8 mg PO Q8HR PRN #20 tab 02/02/20 02/20/20 Rx Torsemide [Demadex] 20 mg PO QDAY #30 tab 02/02/20 02/20/20 Rx calcitrioL [Rocaltrol] 1 mcg PO QDAY #30 cap 02/02/20 02/20/20 Rx levETIRAcetam [Keppra TAB] 500 mg PO BID #60 tablet 02/02/20 02/20/20 Rx Allergies Allergy/AdvReac Type Severity Reaction Status Date / Time No Known Allergies Allergy Verified 01/19/20 05:43 ED Review of Systems ROS: Stated complaint: DIALYSIS Other details as noted in HPI Comment: All other systems reviewed and negative Constitutional: denies: chills, fever Respiratory: shortness of breath. denies: cough, SOB with exertion Cardiovascular: denies: chest pain Gastrointestinal: nausea, vomiting, diarrhea. denies: abdominal pain Musculoskeletal: denies: back pain Neurological: denies: headache, weakness, numbness, paresthesias, confusion, abnormal gait ED Past Medical Hx - Past Medical History Hx Hypertension: Yes Hx CVA: Yes (x4, 6TIAs) Hx Heart Attack/AMI: Yes Hx Congestive Heart Failure: Yes Hx Diabetes: Yes Hx Liver Disease: No Hx Renal Disease: Yes (dialysis 2015, , and Sat) Hx Arthritis: Yes Hx Headaches / Migraines: Yes Hx Seizures: Yes Hx Asthma: Yes Hx COPD: Yes Hx HIV: No - Surgical History Hx Coronary Stent: Yes Hx Pacemaker: No Hx Internal Defibrillator: No Hx Breast Surgery: Yes (breast reduction 1979) Additional Surgical History: breast reduction 1979, av fistula left arm - Social History Smoking Status: Never Smoker - Medications Home Medications: Home Medications Medication Instructions Recorded Confirmed Last Taken Type Brimonidine Tartrate/Timolol 10 ml OP BID 12/01/19 02/21/20 01/18/20 History [Combigan 0.2%-0.5% Eye Drops] Fluticasone [Flonase] 1 spray NS QDAY 12/01/19 02/21/20 01/18/20 History Albuterol Sulfate [Proair 90 mcg IH Q6HR 30 Days 02/02/20 02/21/20 Unknown Rx Digihaler] Aspirin EC [Halfprin EC] 81 mg PO QDAY #30 tablet 02/02/20 02/21/20 02/20/20 Rx AtorvaSTATin [Lipitor] 40 mg PO QHS #30 tablet 02/02/20 02/21/20 02/20/20 Rx Calcium Acetate 2,001 mg PO TID #90 02/02/20 02/21/20 02/20/20 Rx Calcium Carbonate [Tums 500MG CHEW] 750 mg PO QHS #30 02/02/20 02/21/20 02/20/20 Rx Clopidogrel [Plavix] 75 mg PO QDAY #30 02/02/20 02/21/20 02/19/20 Rx Gabapentin [Neurontin] 800 mg PO TID #90 tab 02/02/20 02/21/20 02/20/20 Rx Hydralazine HCl 50 mg PO BID #60 tab 02/02/20 02/21/20 02/20/20 Rx Losartan [Cozaar] 50 mg PO QDAY #30 tablet 02/02/20 02/21/20 02/20/20 Rx Metoprolol [Lopressor TAB] 25 mg PO BID #60 tablet 02/02/20 02/21/20 02/20/20 Rx Mirtazapine [Remeron 15mg TAB] 15 mg PO QHS #30 tab 02/02/20 02/21/20 02/20/20 Rx Ondansetron [Zofran ODT TAB] 8 mg PO Q8HR PRN #20 tab 02/02/20 02/21/20 02/20/20 Rx Torsemide [Demadex] 20 mg PO QDAY #30 tab 02/02/20 02/21/20 02/20/20 Rx calcitrioL [Rocaltrol] 1 mcg PO QDAY #30 cap 02/02/20 02/21/20 02/20/20 Rx levETIRAcetam [Keppra TAB] 500 mg PO BID #60 tablet 02/02/20 02/21/20 02/20/20 Rx ED Physical Exam - General Limitations: No Limitations General appearance: alert, in no apparent distress - Head Head exam: Present: atraumatic, normocephalic, normal inspection - Eye Eye exam: Present: normal appearance, PERRL - ENT ENT exam: Present: normal exam, normal orophraynx, mucous membranes moist - Neck Neck exam: Present: normal inspection, full ROM. Absent: tenderness, meningismus, lymphadenopathy, thyromegaly - Respiratory Respiratory exam: Present: normal lung sounds bilaterally - Cardiovascular Cardiovascular Exam: Present: regular rate, normal rhythm, normal heart sounds - GI/Abdominal GI/Abdominal exam: Present: soft, normal bowel sounds. Absent: distended, tenderness, guarding, rebound, rigid, organomegaly, mass, bruit, pulsatile mass, hernia - Extremities Exam Extremities exam: Present: normal inspection, full ROM, normal capillary refill. Absent: pedal edema, calf tenderness - Back Exam Back exam: Present: normal inspection, full ROM. Absent: CVA tenderness (R), CVA tenderness (L) - Neurological Exam Neurological exam: Present: alert, oriented X3, CN II-XII intact, normal gait, reflexes normal - Psychiatric Psychiatric exam: Present: normal mood - Skin Skin exam: Present: warm, intact, normal color ED Course Vital Signs 04/19/20 13:55 Temperature 98.0 F Pulse Rate 89 Respiratory 16 Rate Blood Pressure 145/71 O2 Sat by Pulse 100 Oximetry ED Medical Decision Making - Lab Data Result diagrams: 04/19/20 14:41 04/19/20 14:41 - Medical Decision Making Patient is 60 years old female with history of end-stage renal disease on hemodialysis. Patient presented to the ER stating that she missed 2 dialysis session because she had history of nausea vomiting and diarrhea. Patient stated that she went to her dialysis center today and they asked her to come to the ER. Patient denied any fever or chills. No chest pain but she is having some shortness of breath. Patient is symptomatic with shortness of breath. Patient given Zofran for nausea and vomiting. I discussed the patient with Dr. 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 I discussed the patient with Dr. Coyle, he agreed to admit the patient to medical service for further management. Critical Care Time: Yes Critical care time in (mins) excluding proc time.: 30 Critical care attestation.: If time is entered above; I have spent that time in minutes in the direct care of this critically ill patient, excluding procedure time. ED Disposition Clinical Impression: End-stage renal disease needing dialysis, Volume overload, Shortness of breath, Acute hyperkalemia Disposition: DC-[id number] OP ADMIT IP TO THIS HOSP Is pt being admited?: Yes Condition: Stable
[2020-04-19] MEDS ORDERED: SODIUM CHLORIDE 0.9% 100 ML IV PRN (18:27)
[2020-04-19] MEDS ORDERED: ONDANSETRON 8 MG ODT TAB PO PRN (19:11)
[2020-04-19] MEDS ORDERED: oxyCODONE /ACETAMINOPHEN 5-325MG TAB PO PRN (19:13)
[2020-04-19] MEDS ORDERED: ALBUTEROL SULFATE 90 MCG IH SCH (19:15)
[2020-04-19] MEDS ORDERED: NON-FORMULARY EACH (Torsemide [Demadex] 20 MG) PO SCH (19:15)
[2020-04-19] MEDS: LOSARTAN 50 MG TAB PO SCH (19:38)
[2020-04-19] MEDS ORDERED: ALBUTEROL 2.5 MG/3 ML NEBU IH PRN (19:56)
[2020-04-19] MEDS ORDERED: NON-FORMULARY EACH (Gabapentin [Neurontin] 800 MG) PO SCH (20:00)
[2020-04-19] MEDS ORDERED: CALCIUM ACETATE 2001 MG PO SCH (20:00)
[2020-04-19 20:21] LABS: Hepatitis B Surface Antigen Non-Reactive (Negative); Hepatitis C Virus Antibody Non-Reactive (NonReactive)
[2020-04-19] MEDS ORDERED: NON-FORMULARY EACH (Hydralazine Hcl [Hydralazine Hcl] 50 MG) PO SCH (22:00)
[2020-04-19] MEDS: TORSEMIDE 10 MG TAB PO SCH (23:49)
[2020-04-19] MEDS: MIRTAZAPINE 15 MG TAB PO SCH (23:50)
[2020-04-19] MEDS: FAMOTIDINE 10 MG TAB PO SCH (23:50)
[2020-04-19] MEDS: levETIRAcetam 500 MG TAB PO SCH (23:50)
[2020-04-19] MEDS: hydrALAZINE 25 MG TAB PO SCH (23:51)
[2020-04-19] MEDS: METOPROLOL TARTRATE 25 MG TAB PO SCH (23:51)
[2020-04-19] MEDS: GABAPENTIN 400 MG CAP PO SCH (23:56)
[2020-04-19] MEDS: COMBIGAN 0.2-0.5% OPHTH SOLN OU SCH (23:56)
[2020-04-20] MEDS: ONDANSETRON 4 MG/2 ML INJ IV PRN ×2 (00:02→21:34)
[2020-04-20] MEDS: ACETAMINOPHEN 325 MG TAB PO PRN ×2 (04:34→23:52)
[2020-04-20 07:30] LABS: Basophils % (Auto) 0.4 % (0.0-1.8); Eosinophils % (Auto) 0.2 % (0.0-4.3); Hemoglobin 6.5 gm/dl (10.1-14.3); Lymphocytes # (Auto) 0.2 K/mm3 (1.2-5.4); Lymphocytes % (Auto) 4.8 % (13.4-35.0); Mean Corpuscular HGB Conc 33 % (30-34); Mean Corpuscular Volume 85 fl (79-97); Monocytes # (Auto) 0.4 K/mm3 (0.0-0.8); Monocytes % (Auto) 7.1 % (0.0-7.3); Platelet Count 231 K/mm3 (140-440); Red Blood Count 2.34 M/mm3 (3.65-5.03); Red Cell Distribution Width 16.3 % (13.2-15.2)
--- NOTE | 2020-04-20 07:40 | History and Physical Report ---
History of Present Illness Date of examination: 04/19/20 Date of admission: 04/19/20 18:23 Chief complaint: Shortness of breath and orthopnea for 1 day History of present illness: 60-year-old female comes in for shortness of breath. Patient has missed 2 dialysis sessions. Patient missed her dialysis because of nausea vomiting and diarrhea. Patient went to her dialysis center and they requested her to come to the emergency room for emergent hemodialysis and for medical clearance. No chest pain. Shortness of breath on exertion and orthopnea present. No fever or chills. No exposure to coronavirus. - Past Medical History Hx Hypertension: Yes Hx CVA: Yes (x4, 6TIAs) Hx Heart Attack/AMI: Yes Hx Congestive Heart Failure: Yes Hx Diabetes: Yes Hx Renal Disease: Yes (dialysis 2015, , and Sat) Hx Arthritis: Yes Hx Headaches / Migraines: Yes Hx Seizures: Yes Hx Asthma: Yes Hx COPD: Yes - Surgical History Coronary Stent: Yes Breast Surgery: Yes (breast reduction 1979) Additional Surgical History: breast reduction 1979, av fistula left arm - Social History Smoking Status: Never Smoker Family history Htn - Medications Home Medications: Home Medications Medication Instructions Recorded Confirmed Last Taken Type Brimonidine Tartrate/Timolol 10 ml OP BID 12/01/19 02/21/20 01/18/20 History [Combigan 0.2%-0.5% Eye Drops] Fluticasone [Flonase] 1 spray NS QDAY 12/01/19 02/21/20 01/18/20 History Albuterol Sulfate [Proair 90 mcg IH Q6HR 30 Days 02/02/20 02/21/20 Unknown Rx Digihaler] Aspirin EC [Halfprin EC] 81 mg PO QDAY #30 tablet 02/02/20 02/21/20 02/20/20 Rx AtorvaSTATin [Lipitor] 40 mg PO QHS #30 tablet 02/02/20 02/21/20 02/20/20 Rx Calcium Acetate 2,001 mg PO TID #90 02/02/20 02/21/20 02/20/20 Rx Calcium Carbonate [Tums 500MG CHEW] 750 mg PO QHS #30 02/02/20 02/21/20 02/20/20 Rx Clopidogrel [Plavix] 75 mg PO QDAY #30 02/02/20 02/21/20 02/19/20 Rx Gabapentin [Neurontin] 800 mg PO TID #90 tab 02/02/20 02/21/20 02/20/20 Rx Hydralazine HCl 50 mg PO BID #60 tab 02/02/20 02/21/20 02/20/20 Rx Losartan [Cozaar] 50 mg PO QDAY #30 tablet 02/02/20 02/21/20 02/20/20 Rx Metoprolol [Lopressor TAB] 25 mg PO BID #60 tablet 02/02/20 02/21/20 02/20/20 Rx Mirtazapine [Remeron 15mg TAB] 15 mg PO QHS #30 tab 02/02/20 02/21/20 02/20/20 Rx Ondansetron [Zofran ODT TAB] 8 mg PO Q8HR PRN #20 tab 02/02/20 02/21/20 02/20/20 Rx Torsemide [Demadex] 20 mg PO QDAY #30 tab 02/02/20 02/21/20 02/20/20 Rx calcitrioL [Rocaltrol] 1 mcg PO QDAY #30 cap 02/02/20 02/21/20 02/20/20 Rx levETIRAcetam [Keppra TAB] 500 mg PO BID #60 tablet 02/02/20 02/21/20 02/20/20 Rx Review of Systems ROS: Stated complaint: DIALYSIS Other details as noted in HPI Comment: All other systems reviewed and negative Constitutional: denies: chills, fever Respiratory: shortness of breath. denies: cough, SOB with exertion Cardiovascular: denies: chest pain Gastrointestinal: nausea, vomiting, diarrhea. denies: abdominal pain Musculoskeletal: denies: back pain Neurological: denies: headache, weakness, numbness, paresthesias, confusion, abnormal gait Medications and Allergies Allergies Allergy/AdvReac Type Severity Reaction Status Date / Time No Known Allergies Allergy Verified 01/19/20 05:43 Home Medications Medication Instructions Recorded Confirmed Last Taken Type Brimonidine Tartrate/Timolol 10 ml OP BID 12/01/19 04/20/20 01/18/20 History [Combigan 0.2%-0.5% Eye Drops] Fluticasone [Flonase] 1 spray NS QDAY 12/01/19 04/20/20 01/18/20 History Albuterol Sulfate [Proair 90 mcg IH Q6HR 30 Days 02/02/20 04/20/20 Unknown Rx Digihaler] Aspirin EC [Halfprin EC] 81 mg PO QDAY #30 tablet 02/02/20 04/20/20 02/20/20 Rx AtorvaSTATin [Lipitor] 40 mg PO QHS #30 tablet 02/02/20 04/20/20 02/20/20 Rx Calcium Acetate 2,001 mg PO TID #90 02/02/20 04/20/20 02/20/20 Rx Calcium Carbonate [Tums 500MG CHEW] 750 mg PO QHS #30 02/02/20 04/20/20 02/20/20 Rx Clopidogrel [Plavix] 75 mg PO QDAY #30 02/02/20 04/20/20 02/19/20 Rx Gabapentin [Neurontin] 800 mg PO TID #90 tab 02/02/20 04/20/20 02/20/20 Rx Hydralazine HCl 50 mg PO BID #60 tab 02/02/20 04/20/20 02/20/20 Rx Losartan [Cozaar] 50 mg PO QDAY #30 tablet 02/02/20 04/20/20 02/20/20 Rx Metoprolol [Lopressor TAB] 25 mg PO BID #60 tablet 02/02/20 04/20/20 02/20/20 Rx Mirtazapine [Remeron 15mg TAB] 15 mg PO QHS #30 tab 02/02/20 04/20/20 02/20/20 Rx Ondansetron [Zofran ODT TAB] 8 mg PO Q8HR PRN #20 tab 02/02/20 04/20/20 02/20/20 Rx Torsemide [Demadex] 20 mg PO QDAY #30 tab 02/02/20 04/20/20 02/20/20 Rx calcitrioL [Rocaltrol] 1 mcg PO QDAY #30 cap 02/02/20 04/20/20 02/20/20 Rx levETIRAcetam [Keppra TAB] 500 mg PO BID #60 tablet 02/02/20 04/20/20 02/20/20 Rx Active Meds: Active Medications Acetaminophen (Tylenol) 650 mg PO Q4H PRN PRN Reason: Pain MILD(1-3)/Fever >100.5/MCDANIEL Last Admin: 04/20/20 04:34 Dose: 650 mg Documented by: Albuterol (Proventil) 2.5 mg IH Q4HRT PRN PRN Reason: Shortness Of Breath Aspirin (Halfprin Ec) 81 mg PO QDAY [facility] Atorvastatin Calcium (Lipitor) 40 mg PO QHS [facility] Last Admin: 04/19/20 23:48 Dose: 40 mg Documented by: Brimonidine/Timolol (Combigan 0.2-0.5%) 1 drops OU BID [facility] Last Admin: 04/19/20 23:56 Dose: 1 drops Documented by: Calcitriol (Rocaltrol) 1 mcg PO QDAY [facility] Calcium Acetate (Phoslo) 2,001 mg PO TIDWM [facility] Clopidogrel Bisulfate (Plavix) 75 mg PO QDAY [facility] Famotidine (Pepcid) 10 mg PO BID [facility] Last Admin: 04/19/20 23:50 Dose: 10 mg Documented by: Fluticasone Propionate (Flonase) 50 mcg NS QDAY [facility] Gabapentin (Gabapentin) 800 mg PO TID [facility] Last Admin: 04/19/20 23:56 Dose: 800 mg Documented by: Hydralazine HCl (Apresoline) 50 mg PO BID [facility] Last Admin: 04/19/20 23:51 Dose: 50 mg Documented by: Hydromorphone HCl (Dilaudid) 0.5 mg IV Q3H PRN PRN Reason: Pain , Severe (7-10) Sodium Chloride (Nacl 0.9%) 100 mls @ 999 mls/hr IV GREY PRN PRN Reason: Hypotension Levetiracetam (Keppra) 500 mg PO BID [facility] Last Admin: 04/19/20 23:50 Dose: 500 mg Documented by: Losartan Potassium (Cozaar) 50 mg PO QDAY [facility] Last Admin: 04/19/20 19:38 Dose: Not Given Documented by: Metoprolol Tartrate (Metoprolol) 25 mg PO BID [facility] Last Admin: 04/19/20 23:51 Dose: 25 mg Documented by: Mirtazapine (Remeron) 15 mg PO QHS [facility] Last Admin: 04/19/20 23:50 Dose: 15 mg Documented by: Ondansetron HCl (Zofran Odt) 8 mg PO Q8HR PRN PRN Reason: Nausea Ondansetron HCl (Zofran) 4 mg IV Q8H PRN PRN Reason: Nausea And Vomiting Last Admin: 04/20/20 00:02 Dose: 4 mg Documented by: Oxycodone/Acetaminophen (Percocet 5/325) 1 tab PO Q6H PRN PRN Reason: Pain, Moderate (4-6) Sodium Chloride (Sodium Chloride Flush Syringe 10 Ml) 10 ml IV BID [facility] Last Admin: 04/19/20 23:50 Dose: 10 ml Documented by: Sodium Chloride (Sodium Chloride Flush Syringe 10 Ml) 10 ml IV PRN PRN PRN Reason: LINE FLUSH Torsemide (Demadex) 20 mg PO QDAY [facility] Last Admin: 04/19/20 23:49 Dose: 20 mg Documented by: Exam - Constitutional Vitals: Temp Pulse Resp BP Pulse Ox 100.1 F H 101 H 18 110/60 97 04/20/20 04:03 04/20/20 04:03 04/20/20 05:34 04/20/20 04:03 04/20/20 04:03 General appearance: Present: mild distress, well-nourished - EENT Eyes: Present: PERRL ENT: hearing intact, clear oral mucosa - Neck Neck: Present: supple, normal ROM - Respiratory Respiratory effort: normal Respiratory: bilateral: CTA, rales - Cardiovascular Heart rate: 78 Rhythm: regular Heart Sounds: Present: S1 & S2. Absent: rub, click - Extremities Extremities: pulses symmetrical, No edema Peripheral Pulses: within normal limits - Abdominal General gastrointestinal: Present: soft, non-tender, non-distended, normal bowel sounds Female genitourinary: Present: normal - Integumentary Integumentary: Present: clear, warm, dry - Musculoskeletal Musculoskeletal: gait normal, strength equal bilaterally - Psychiatric Psychiatric: appropriate mood/affect, intact judgment & insight - Neurologic Neurologic: CNII-XII intact, moves all extremities - Allied Health Allied health notes reviewed: nursing, case management HEART Score - HEART Score History: Highly suspicious Age: 45-65 Troponin: 1-3x normal limit - Critical Actions Critical Actions: 4-6 pts:12-16.6% risk of adverse cardiac event. Should be admitted Results - Labs CBC & Chem 7: 04/20/20 06:38 04/19/20 14:41 Labs: Laboratory Last Values WBC 5.1 K/mm3 (4.5-11.0) 04/20/20 06:38 RBC 2.34 M/mm3 (3.65-5.03) L 04/20/20 06:38 Hgb 6.5 gm/dl (10.1-14.3) L 04/20/20 06:38 Hct 22.4 % (30.3-42.9) L 04/19/20 14:41 MCV 85 fl (79-97) 04/20/20 06:38 MCH 28 pg (28-32) 04/20/20 06:38 MCHC 33 % (30-34) 04/20/20 06:38 RDW 16.3 % (13.2-15.2) H 04/20/20 06:38 Plt Count 231 K/mm3 (140-440) 04/20/20 06:38 Lymph % (Auto) 4.8 % (13.4-35.0) L 04/20/20 06:38 [place] % (Auto) 7.1 % (0.0-7.3) 04/20/20 06:38 Eos % (Auto) 0.2 % (0.0-4.3) 04/20/20 06:38 Baso % (Auto) 0.4 % (0.0-1.8) 04/20/20 06:38 Lymph # 0.2 K/mm3 (1.2-5.4) L 04/20/20 06:38 [place] # 0.4 K/mm3 (0.0-0.8) 04/20/20 06:38 Eos # 0.0 K/mm3 (0.0-0.4) 04/20/20 06:38 Baso # 0.0 K/mm3 (0.0-0.1) 04/20/20 06:38 Seg Neutrophils % 87.5 % (40.0-70.0) H 04/20/20 06:38 Seg Neutrophils # 4.5 K/mm3 (1.8-7.7) 04/20/20 06:38 Sodium 137 mmol/L (137-145) 04/19/20 14:41 Potassium 5.4 mmol/L (3.6-5.0) H 04/19/20 14:41 Chloride 95.6 mmol/L (98-107) L 04/19/20 14:41 Carbon Dioxide 25 mmol/L (22-30) 04/19/20 14:41 Anion Gap 22 mmol/L 04/19/20 14:41 BUN 70 mg/dL (7-17) H 04/19/20 14:41 Creatinine 13.9 mg/dL (0.6-1.2) H 04/19/20 14:41 Estimated GFR 3 ml/min 04/19/20 14:41 BUN/Creatinine Ratio 5 % 04/19/20 14:41 Glucose 93 mg/dL (65-100) 04/19/20 14:41 Calcium 8.0 mg/dL (8.4-10.2) L 04/19/20 14:41 Total Bilirubin 0.40 mg/dL (0.1-1.2) 04/19/20 14:41 AST 9 units/L (5-40) 04/19/20 14:41 ALT < 5 units/L (7-56) L 04/19/20 14:41 Alkaline Phosphatase 68 units/L (35-129) 04/19/20 14:41 Total Protein 5.8 g/dL (6.3-8.2) L 04/19/20 14:41 Albumin 1.7 g/dL (3.9-5) L 04/19/20 14:41 Albumin/Globulin Ratio 0.4 % 04/19/20 14:41 Hepatitis A IgM Ab Non-reactive (NonReactive) 04/19/20 19:02 Hep Bs Antigen Non-reactive (Negative) 04/19/20 19:02 Hep B Core IgM Ab Non-reactive (NonReactive) 04/19/20 19:02 Hepatitis C Antibody Non-reactive (NonReactive) 04/19/20 19:02 - Imaging and Cardiology EKG: report reviewed [place]/IV: IV Catheter Type [Left Upper INT / Saline Lock arm] Assessment and Plan Advance Directives: Yes (Full code) VTE prophylaxis?: Chemical Plan of care discussed with patient/family: Yes - Patient Problems (1) Acute exacerbation of CHF (congestive heart failure) Current Visit: No Status: Acute Qualifiers: Heart failure type: diastolic Qualified Code(s): I50.33 - Acute on chronic diastolic (congestive) heart failure Plan to address problem: Secondary to volume overload and missed hemodialysis Increase ultrafiltration during hemodialysis Counseled about compliance with hemodialysis Echocardiogram was not ordered (2) Volume overload Current Visit: Yes Status: Acute Qualifiers: Hypervolemia type: unspecified Qualified Code(s): E87.70 - Fluid overload, unspecified Plan to address problem: Secondary to missed hemodialysis Increase ultrafiltration during hemodialysis Nephrology consulted (3) Acute hyperkalemia Current Visit: Yes Status: Acute Plan to address problem: Patient is going for hemodialysis Also IV calcium gluconate (4) DVT prophylaxis Current Visit: No Status: Acute Plan to address problem: Heparin and GI prophylaxis (5) Hyperlipidemia Current Visit: No Status: Chronic Qualifiers: Hyperlipidemia type: mixed hyperlipidemia Qualified Code(s): E78.2 - Mixed hyperlipidemia Plan to address problem: Continue statins (6) Hypertension Current Visit: Yes Status: Chronic Qualifiers: Hypertension type: essential hypertension Qualified Code(s): I10 - Essential (primary) hypertension Plan to address problem: Continue antihypertensives (7) Seizure disorder Current Visit: Yes Status: Chronic Plan to address problem: Continue Keppra (8) ESRD needing dialysis Current Visit: Yes Status: Chronic Plan to address problem: Continue hemodialysis
[2020-04-20 07:48] LABS: Albumin 1.8 g/dL (3.9-5); Blood Urea Nitrogen 30 mg/dL (7-17); Calcium 7.6 mg/dL (8.4-10.2); Hemolysis Index 3
[2020-04-20 07:54] LABS: Hematocrit 19.8 % (30.3-42.9)
[2020-04-20 07:55] LABS: Alanine Aminotransferase < 5 units/L (7-56); BUN/Creatinine Ratio 4
[2020-04-20] MEDS ORDERED: SODIUM CHLORIDE 0.9% 500 ML 500 ML IV NR (08:03)
[2020-04-20] MEDS ORDERED: CALCIUM GLUCONATE 2,000 MG in SODIUM CHLORIDE 0.9% 100 ML IV ONE (08:30)
[2020-04-20] MEDS ORDERED: FUROSEMIDE 40 MG/4 ML INJ IV SCH (09:00)
[2020-04-20] MEDS: FLUTICASONE PROPIONATE NASAL SPRAY 16 GM NS SCH (09:26)
[2020-04-20] MEDS: COMBIGAN 0.2-0.5% OPHTH SOLN OU SCH ×2 (09:26→22:43)
[2020-04-20] MEDS: GABAPENTIN 400 MG CAP PO SCH ×3 (09:27→22:43)
[2020-04-20] MEDS: ASPIRIN EC 81 MG TAB PO SCH (09:28)
[2020-04-20] MEDS: FAMOTIDINE 10 MG TAB PO SCH ×2 (09:28→22:44)
[2020-04-20] MEDS: levETIRAcetam 500 MG TAB PO SCH ×2 (09:29→22:43)
[2020-04-20] MEDS: TORSEMIDE 10 MG TAB PO SCH (09:29)
[2020-04-20] MEDS: CALCIUM ACETATE 667 MG CAP PO SCH ×3 (09:29→17:27)
[2020-04-20] MEDS: CALCITRIOL 0.5 MCG CAP PO SCH (09:29)
[2020-04-20] MEDS: CLOPIDOGREL 75 MG TAB PO SCH (09:29)
[2020-04-20] MEDS: LOSARTAN 50 MG TAB PO SCH (09:30)
[2020-04-20] MEDS: hydrALAZINE 25 MG TAB PO SCH ×2 (09:30→22:41)
--- NOTE | 2020-04-20 12:31 | Consultation ---
History of Present Illness - Reason for Consult Consult date: 04/20/20 end stage renal disease - History of Present Illness This is a 60 year-old woman with ESRD who presents for missed HD, presented with dyspnea, uremia. Patient usually dialyzes // at [facility]. Last HD 04/12/2020. Denies any recent issues with HD, including dizziness, lightheadedness, cramping, chest pain on HD. Missed several sessions and began feeling poorly, was sent to ED by HD unit as she had missed so many sessions and was unstable. Had ED last night without issues. Currently, patient denies any issues including dyspnea, edema, access issues, nausea, vomiting, headaches. Past History Past Medical History: diabetes, ESRD, hypertension Past Surgical History: No surgical history Social history: no significant social history Family history: no significant family history Medications and Allergies Allergies Allergy/AdvReac Type Severity Reaction Status Date / Time No Known Allergies Allergy Verified 01/19/20 05:43 Home Medications Medication Instructions Recorded Confirmed Last Taken Type Brimonidine Tartrate/Timolol 10 ml OP BID 12/01/19 04/20/20 01/18/20 History [Combigan 0.2%-0.5% Eye Drops] Fluticasone [Flonase] 1 spray NS QDAY 12/01/19 04/20/20 01/18/20 History Albuterol Sulfate [Proair 90 mcg IH Q6HR 30 Days 02/02/20 04/20/20 Unknown Rx Digihaler] Aspirin EC [Halfprin EC] 81 mg PO QDAY #30 tablet 02/02/20 04/20/20 02/20/20 Rx AtorvaSTATin [Lipitor] 40 mg PO QHS #30 tablet 02/02/20 04/20/20 02/20/20 Rx Calcium Acetate 2,001 mg PO TID #90 02/02/20 04/20/20 02/20/20 Rx Calcium Carbonate [Tums 500MG CHEW] 750 mg PO QHS #30 02/02/20 04/20/20 02/20/20 Rx Clopidogrel [Plavix] 75 mg PO QDAY #30 02/02/20 04/20/20 02/19/20 Rx Gabapentin [Neurontin] 800 mg PO TID #90 tab 02/02/20 04/20/20 02/20/20 Rx Hydralazine HCl 50 mg PO BID #60 tab 02/02/20 04/20/20 02/20/20 Rx Losartan [Cozaar] 50 mg PO QDAY #30 tablet 02/02/20 04/20/20 02/20/20 Rx Metoprolol [Lopressor TAB] 25 mg PO BID #60 tablet 02/02/20 04/20/20 02/20/20 Rx Mirtazapine [Remeron 15mg TAB] 15 mg PO QHS #30 tab 02/02/20 04/20/20 02/20/20 Rx Ondansetron [Zofran ODT TAB] 8 mg PO Q8HR PRN #20 tab 02/02/20 04/20/20 02/20/20 Rx Torsemide [Demadex] 20 mg PO QDAY #30 tab 02/02/20 04/20/20 02/20/20 Rx calcitrioL [Rocaltrol] 1 mcg PO QDAY #30 cap 02/02/20 04/20/20 02/20/20 Rx levETIRAcetam [Keppra TAB] 500 mg PO BID #60 tablet 02/02/20 04/20/20 02/20/20 Rx Active Meds: Active Medications Acetaminophen (Tylenol) 650 mg PO Q4H PRN PRN Reason: Pain MILD(1-3)/Fever >100.5/MCDANIEL Last Admin: 04/20/20 04:34 Dose: 650 mg Documented by: Albuterol (Proventil) 2.5 mg IH Q4HRT PRN PRN Reason: Shortness Of Breath Aspirin (Halfprin Ec) 81 mg PO QDAY [facility] Last Admin: 04/20/20 09:28 Dose: 81 mg Documented by: Atorvastatin Calcium (Lipitor) 40 mg PO QHS [facility] Last Admin: 04/19/20 23:48 Dose: 40 mg Documented by: Brimonidine/Timolol (Combigan 0.2-0.5%) 1 drops OU BID [facility] Last Admin: 04/20/20 09:26 Dose: 1 drops Documented by: Calcitriol (Rocaltrol) 1 mcg PO QDAY [facility] Last Admin: 04/20/20 09:29 Dose: 1 mcg Documented by: Calcium Acetate (Phoslo) 2,001 mg PO TIDWM [facility] Last Admin: 04/20/20 09:29 Dose: Not Given Documented by: Clopidogrel Bisulfate (Plavix) 75 mg PO QDAY [facility] Last Admin: 04/20/20 09:29 Dose: 75 mg Documented by: Famotidine (Pepcid) 10 mg PO BID [facility] Last Admin: 04/20/20 09:28 Dose: 10 mg Documented by: Fluticasone Propionate (Flonase) 50 mcg NS QDAY [facility] Last Admin: 04/20/20 09:26 Dose: 50 mcg Documented by: Gabapentin (Gabapentin) 800 mg PO TID [facility] Last Admin: 04/20/20 09:27 Dose: 800 mg Documented by: Hydralazine HCl (Apresoline) 50 mg PO BID [facility] Last Admin: 04/20/20 09:30 Dose: Not Given Documented by: Hydromorphone HCl (Dilaudid) 0.5 mg IV Q3H PRN PRN Reason: Pain , Severe (7-10) Sodium Chloride (Nacl 0.9%) 100 mls @ 999 mls/hr IV GREY PRN PRN Reason: Hypotension Sodium Chloride (Nacl 0.9% 500 Ml) 500 mls @ 0 mls/hr IV ONCE NR Stop: 04/20/20 15:00 Levetiracetam (Keppra) 500 mg PO BID [facility] Last Admin: 04/20/20 09:29 Dose: 500 mg Documented by: Losartan Potassium (Cozaar) 50 mg PO QDAY [facility] Last Admin: 04/20/20 09:30 Dose: Not Given Documented by: Metoprolol Tartrate (Metoprolol) 25 mg PO BID [facility] Last Admin: 04/19/20 23:51 Dose: 25 mg Documented by: Mirtazapine (Remeron) 15 mg PO QHS [facility] Last Admin: 04/19/20 23:50 Dose: 15 mg Documented by: Ondansetron HCl (Zofran Odt) 8 mg PO Q8HR PRN PRN Reason: Nausea Ondansetron HCl (Zofran) 4 mg IV Q8H PRN PRN Reason: Nausea And Vomiting Last Admin: 04/20/20 00:02 Dose: 4 mg Documented by: Oxycodone/Acetaminophen (Percocet 5/325) 1 tab PO Q6H PRN PRN Reason: Pain, Moderate (4-6) Sodium Chloride (Sodium Chloride Flush Syringe 10 Ml) 10 ml IV BID [facility] Last Admin: 04/20/20 09:30 Dose: 10 ml Documented by: Sodium Chloride (Sodium Chloride Flush Syringe 10 Ml) 10 ml IV PRN PRN PRN Reason: LINE FLUSH Torsemide (Demadex) 20 mg PO QDAY [facility] Last Admin: 04/20/20 09:29 Dose: 20 mg Documented by: Review of Systems All systems: negative (as per HPI) Exam - Vital Signs Vital signs: Vital Signs Temp Pulse Resp BP Pulse Ox 98.0 F 89 16 145/71 100 04/19/20 13:55 04/19/20 13:55 04/19/20 13:55 04/19/20 13:55 04/19/20 13:55 - Physical Exam Narrative exam: Constitutional: no acute distress, sleeping but arousable Head: NC/AT Neck: supple Lungs: clear to auscultation CV: RRR, no M/R/G Abdomen: soft, non-tender, bowel sounds present Back: nontender Extremities: no edema, pulses WNL Skin: intact Neuro: no focal deficits, alert and oriented x4 Results - Lab Results 04/20/20 06:38 04/20/20 06:38 Most recent lab results Calcium 7.6 mg/dL (8.4-10.2) L 04/20/20 06:38 Assessment and Plan This is a 60 year old woman who presents with shortness of breath after missed HD. # ESRD: s/p emergently last evening for hyperkalemia, volume overload, uremia. Lytes improved. Continue HD // or prn, no need for additional HD today - daily labs - renally dose meds - avoid nephrotoxins - renal diet # Anemia: last hemoglobin 7.2->6.5, continue ESAs with HD. PRBCs prn per primary # HTN: UF as tolerated. BP reasonable, borderline soft today # Secondary Hyperparathyroidism: continue home binders as needed
[2020-04-20] MEDS: METOPROLOL TARTRATE 25 MG TAB PO SCH ×2 (13:30→22:41)
[2020-04-20 13:39] LABS: Hematocrit 21.3 % (30.3-42.9)
--- NOTE | 2020-04-20 14:22 | Progress Note ---
Assessment and Plan - Patient Problems (1) Anemia in chronic kidney disease Current Visit: Yes Status: Chronic Qualifiers: Chronic kidney disease stage: on chronic dialysis Qualified Code(s): N18.6 - End stage renal disease; D63.1 - Anemia in chronic kidney disease; Z99.2 - Dependence on renal dialysis Plan to address problem: -Anemia noted on 04/20 of hemoglobin of 6.5 -Stat type and cross and transfusion of 1 unit PRBC -We will obtain post transfusion hemoglobin -Trend CBC -Nephrology restarted on Epogen (2) Acute hyperkalemia Current Visit: Yes Status: Resolved Plan to address problem: - s/p emergent diet dialysis 04/20 and IV calcium gluconate -Trend BMP -Treat as needed (3) Volume overload Current Visit: Yes Status: Acute Qualifiers: Hypervolemia type: unspecified Qualified Code(s): E87.70 - Fluid overload, unspecified Plan to address problem: - Secondary to missed hemodialysis - s/p emergent dialysis overnight on 04/20 - Nephrology consulted (4) ESRD needing dialysis Current Visit: Yes Status: Chronic Plan to address problem: -Nephrology consulted -Patient receives HD Saturday, , Saturday -HD per renal team -Restarted on calcium binders and Epogen (5) Diarrhea Current Visit: No Status: Chronic Plan to address problem: -Patient complains of diarrhea which has been ongoing for several months. -Lomotil as needed started (6) Hypertension Current Visit: Yes Status: Chronic Qualifiers: Hypertension type: essential hypertension Qualified Code(s): I10 - Essential (primary) hypertension Plan to address problem: -Resume home antihypertensives -Blood pressure monitoring per protocol -IV labetalol as needed for SBP greater than 160 (7) Seizure disorder Current Visit: Yes Status: Chronic Plan to address problem: -Continue home antiepileptic regimen -Seizure precautions (8) CHF (congestive heart failure) Current Visit: No Status: Acute Plan to address problem: -Acute exacerbation secondary to volume overload and missed hemodialysis -Received emergent HD overnight on 04/20 -Echocardiogram not needed at this time -Restarted on BB, diuretic, ARB (9) Hyperlipidemia Current Visit: No Status: Chronic Qualifiers: Hyperlipidemia type: mixed hyperlipidemia Qualified Code(s): E78.2 - Mixed hyperlipidemia Plan to address problem: -Continue statin therapy (10) DVT prophylaxis Current Visit: No Status: Acute Plan to address problem: -Heparin subcu -SCDs to bilateral lower extremities while in bed History Interval history: 60-year-old female with HTN, CVA x4, TIAs, CHF with coronary stents, DM, CKD on HD TThS, arthritis, seizures, asthma, COPD presents the emergency department on 04/19 for shortness of breath after missing 2 HD sessions due to nausea, vomiting and diarrhea. She arrived for dialysis on 04/19 and the dialysis center requested for the patient to present to the emergency department for emergent dialysis and medical clearance. Work-up in the emergency department revealed hyperkalemia and she was giving IV calcium gluconate and received emergent dialysis. Nephrology was consulted in the emergency department and she received emergent HD overnight on 04/20. This morning she is anemic with a hemoglobin of 6.5 and she will be transfused was used with 1 unit PRBC. Posttransfusion hemoglobin to be obtained by RN. On exam she complains of diarrhea as she had 2 loose bowel movements this morning however this diarrhea has been going on for several months and her PCP was aware. 04/20: Emergent dialysis, calcium gluconate Hospitalist Physical - Constitutional Vitals: Temp Pulse Resp BP Pulse Ox 98.7 F 94 H 18 134/69 96 04/20/20 07:37 04/20/20 13:30 04/20/20 10:00 04/20/20 13:30 04/20/20 10:00 General appearance: Present: mild distress, cachectic - EENT Eyes: Present: PERRL ENT: hearing intact - Neck Neck: Present: supple, normal ROM - Respiratory Respiratory effort: normal Respiratory: bilateral: CTA - Cardiovascular Rhythm: regular Heart Sounds: Present: S1 & S2. Absent: systolic murmur, diastolic murmur - Extremities Extremities: no ischemia, pulses intact, pulses symmetrical, normal temperature, normal color, Full ROM Extremity abnormal: edema (trace) Peripheral Pulses: within normal limits - Abdominal General gastrointestinal: non-tender, non-distended, normal bowel sounds - Integumentary Integumentary: Present: clear, warm, dry - Psychiatric Psychiatric: cooperative - Neurologic Neurologic: CNII-XII intact, no focal deficits, moves all extremities HEART Score - HEART Score Age: 45-65 Troponin: 1-3x normal limit - Critical Actions Critical Actions: 4-6 pts:12-16.6% risk of adverse cardiac event. Should be admitted Results - Labs CBC & Chem 7: 04/20/20 13:14 04/20/20 06:38 Labs: Laboratory Last Values WBC 5.1 K/mm3 (4.5-11.0) 04/20/20 06:38 RBC 2.34 M/mm3 (3.65-5.03) L 04/20/20 06:38 Hgb 7.0 gm/dl (10.1-14.3) L 04/20/20 13:14 Hct 21.3 % (30.3-42.9) L 04/20/20 13:14 MCV 85 fl (79-97) 04/20/20 06:38 MCH 28 pg (28-32) 04/20/20 06:38 MCHC 33 % (30-34) 04/20/20 06:38 RDW 16.3 % (13.2-15.2) H 04/20/20 06:38 Plt Count 231 K/mm3 (140-440) 04/20/20 06:38 Lymph % (Auto) 4.8 % (13.4-35.0) L 04/20/20 06:38 [place] % (Auto) 7.1 % (0.0-7.3) 04/20/20 06:38 Eos % (Auto) 0.2 % (0.0-4.3) 04/20/20 06:38 Baso % (Auto) 0.4 % (0.0-1.8) 04/20/20 06:38 Lymph # 0.2 K/mm3 (1.2-5.4) L 04/20/20 06:38 [place] # 0.4 K/mm3 (0.0-0.8) 04/20/20 06:38 Eos # 0.0 K/mm3 (0.0-0.4) 04/20/20 06:38 Baso # 0.0 K/mm3 (0.0-0.1) 04/20/20 06:38 Seg Neutrophils % 87.5 % (40.0-70.0) H 04/20/20 06:38 Seg Neutrophils # 4.5 K/mm3 (1.8-7.7) 04/20/20 06:38 Sodium 142 mmol/L (137-145) 04/20/20 06:38 Potassium 4.3 mmol/L (3.6-5.0) D 04/20/20 06:38 Chloride 101.2 mmol/L (98-107) 04/20/20 06:38 Carbon Dioxide 30 mmol/L (22-30) 04/20/20 06:38 Anion Gap 15 mmol/L 04/20/20 06:38 BUN 30 mg/dL (7-17) H 04/20/20 06:38 Creatinine 7.9 mg/dL (0.6-1.2) H 04/20/20 06:38 Estimated GFR 6 ml/min 04/20/20 06:38 BUN/Creatinine Ratio 4 % 04/20/20 06:38 Glucose 108 mg/dL (65-100) H 04/20/20 06:38 Calcium 7.6 mg/dL (8.4-10.2) L 04/20/20 06:38 Total Bilirubin 0.50 mg/dL (0.1-1.2) 04/20/20 06:38 AST 8 units/L (5-40) 04/20/20 06:38 ALT < 5 units/L (7-56) L 04/20/20 06:38 Alkaline Phosphatase 61 units/L (35-129) 04/20/20 06:38 Total Protein 4.7 g/dL (6.3-8.2) L 04/20/20 06:38 Albumin 1.8 g/dL (3.9-5) L 04/20/20 06:38 Albumin/Globulin Ratio 0.6 % 04/20/20 06:38 Hepatitis A IgM Ab Non-reactive (NonReactive) 04/19/20 19:02 Hep Bs Antigen Non-reactive (Negative) 04/19/20 19:02 Hep B Core IgM Ab Non-reactive (NonReactive) 04/19/20 19:02 Hepatitis C Antibody Non-reactive (NonReactive) 04/19/20 19:02 Blood Type O POSITIVE 04/20/20 13:08 Crossmatch See Detail 04/20/20 13:08 [place]/IV: IV Catheter Type [Left Upper INT / Saline Lock arm] Active Medications - Current Medications Current Medications: Generic Name Dose Route Start Last Admin Trade Name Freq PRN Reason Stop Dose Admin Acetaminophen 650 mg 04/19/20 19:13 04/20/20 04:34 Tylenol PO 650 mg Q4H PRN Administration Pain MILD(1-3)/Fever >100.5/MCDANIEL Albuterol 2.5 mg 04/19/20 19:56 Proventil IH Q4HRT PRN Shortness Of Breath Aspirin 81 mg 04/20/20 10:00 04/20/20 09:28 Halfprin Ec PO 81 mg QDAY LENCHO Administration Atorvastatin Calcium 40 mg 04/19/20 22:00 04/19/20 23:48 Lipitor PO 40 mg QHS LENCHO Administration Brimonidine/Timolol 1 drops 04/19/20 22:00 04/20/20 09:26 Combigan 0.2-0.5% OU 1 drops BID LENCHO Administration Calcitriol 1 mcg 04/20/20 10:00 04/20/20 09:29 Rocaltrol PO 1 mcg QDAY LENCHO Administration Calcium Acetate 2,001 mg 04/20/20 08:00 04/20/20 13:00 Phoslo PO 2,001 mg TIDWM LENCHO Administration Clopidogrel Bisulfate 75 mg 04/20/20 10:00 04/20/20 09:29 Plavix PO 75 mg QDAY LENCHO Administration Famotidine 10 mg 04/19/20 22:00 04/20/20 09:28 Pepcid PO 10 mg BID LENCHO Administration Fluticasone Propionate 50 mcg 04/20/20 10:00 04/20/20 09:26 Flonase NS 50 mcg QDAY LENCHO Administration Gabapentin 800 mg 04/19/20 22:00 04/20/20 13:30 Gabapentin PO 800 mg TID LENCHO Administration Hydralazine HCl 50 mg 04/19/20 22:00 04/20/20 09:30 Apresoline PO Not Given BID LENCHO Hydromorphone HCl 0.5 mg 04/19/20 19:13 Dilaudid IV Q3H PRN Pain , Severe (7-10) Sodium Chloride 100 mls @ 999 mls/hr 04/19/20 18:27 Nacl 0.9% IV GREY PRN Hypotension Sodium Chloride 500 mls @ 0 mls/hr 04/20/20 08:03 Nacl 0.9% 500 Ml IV 04/20/20 15:00 ONCE NR As Directed Levetiracetam 500 mg 04/19/20 22:00 04/20/20 09:29 Keppra PO 500 mg BID LENCHO Administration Losartan Potassium 50 mg 04/19/20 20:00 04/20/20 09:30 Cozaar PO Not Given QDAY LENCHO Metoprolol Tartrate 25 mg 04/19/20 22:00 04/20/20 13:30 Metoprolol PO 25 mg BID LENCHO Administration Mirtazapine 15 mg 04/19/20 22:00 04/19/20 23:50 Remeron PO 15 mg QHS LENCHO Administration Ondansetron HCl 8 mg 04/19/20 19:11 Zofran Odt PO Q8HR PRN Nausea Ondansetron HCl 4 mg 04/19/20 19:13 04/20/20 00:02 Zofran IV 4 mg Q8H PRN Administration Nausea And Vomiting Oxycodone/Acetaminophen 1 tab 04/19/20 19:13 Percocet 5/325 PO Q6H PRN Pain, Moderate (4-6) Sodium Chloride 10 ml 04/19/20 22:00 04/20/20 09:30 Sodium Chloride Flush Syringe 10 Ml IV 10 ml BID LENCHO Administration Sodium Chloride 10 ml 04/19/20 19:13 Sodium Chloride Flush Syringe 10 Ml IV PRN PRN LINE FLUSH Torsemide 20 mg 04/19/20 22:00 04/20/20 09:29 Demadex PO 20 mg QDAY LENCHO Administration
[2020-04-20] MEDS ORDERED: LOPERAMIDE 2 MG CAP PO PRN (15:00)
[2020-04-20] MEDS ORDERED: SODIUM CHLORIDE 0.9% 500 ML 500 ML IV ONE (16:29)
[2020-04-20] MEDS: MIRTAZAPINE 15 MG TAB PO SCH (22:45)
[2020-04-20 22:53] LABS: % Iron Saturation 32.98 %
[2020-04-21] MEDS ORDERED: SODIUM CHLORIDE 0.9% 500 ML 500 ML IV ONE (04:30)
[2020-04-21] MEDS ORDERED: SODIUM CHLORIDE 0.9% 500 ML 500 ML ONE (04:42)
[2020-04-21 06:27] LABS: Hematocrit 20.9 % (30.3-42.9); Hemoglobin 6.8 gm/dl (10.1-14.3); Mean Corpuscular HGB Conc 32 % (30-34); Mean Corpuscular Volume 87 fl (79-97); Platelet Count 197 K/mm3 (140-440); Red Cell Distribution Width 15.9 % (13.2-15.2)
[2020-04-21 06:42] LABS: Calcium 7.8 mg/dL (8.4-10.2)
[2020-04-21] MEDS ORDERED: SODIUM CHLORIDE 0.9% 500 ML 500 ML IV SCH (08:00)
--- NOTE | 2020-04-21 08:31 | Progress Note ---
Subjective Interval history: Patient was seen today for follow-up of multiple renal related issues around 9:30 in the morning No complaints of any chest pain pressure or shortness of breath Interdisciplinary notes that also reviewed Events of 24 hours vitals labs intake output medications were reviewed Past medical history: Reviewed Family history: Reviewed Social history: Reviewed Allergies: Reviewed Physical examination: Vitals: Reviewed HEENT: No pallor or icterus oral mucosa moist patient uses a wig Neck: Supple no JVD no thyromegaly Chest: Bilateral clear to auscultation anteriorly Heart: Regular rate and rhythm S1-S2 heard no S3-S4 Abdomen: Soft nontender no voluntary guarding rigidity rebound Extremity: Dry skin less than 1+ peripheral edema fistula appears to be normal no swelling Psychiatric: No evidence of agitation and aggression noted Dermatology: No petechial rashes Labs and x-rays: Reviewed from today Assessment and plan End-stage renal disease: Patient is currently on maintenance hemodialysis on Saturday schedule patients last dialysis was on April 12 and hence missed several days of dialysis , she will continue a Saturday dialysis while here Issues with noncompliance with dialysis: Adequately counseled and educated, rn social work needs to follow up with dialysis facility Hemodialysis nurse to ultrafiltrate as tolerated, systolic blood pressure must be kept above 100, heart rate below 100 Anemia in end-stage renal disease to monitor hemoglobin and hematocrit pe riodically erythropoietin as needed, further workup may be required depending on the hemoglobin, her hemoglobin is currently at 6.5 which could be due to dialysis status, nutritional, rule out any deficiency of iron B12 folic acid Bone mineral disorder and secondary hyperparathyroidism: Monitor phosphorus and PTH level periodically Dialysis Access: Currently working well no acute issues noted Diet and nutrition: Patient advised to maintain 1200 cc fluid restriction needs to be on protein: She will benefit from dietitian evaluation Mild hyperkalemia potassium was 5.4 repeat potassium was 4.3 after dialysis Current lab results were explained to the patient at length in simple Swazi and patient does have clear understanding All dialysis-related questions have been answered to the patient More than 35 minutes were spent in direct patient care today at the bedside, Patient was adequately counseled and educated regarding all the renal related issues Laboratory studies, have been explained to the patient All questions were answered and simple [place] We'll continue to follow and make recommendation for renal standpoint Objective - Vital Signs Vital signs: Vital Signs - 12hr 04/20/20 04/20/20 04/20/20 20:45 23:42 23:52 Temperature 98.0 F 100.4 F H Pulse Rate 96 H 89 Respiratory 18 18 18 Rate Blood Pressure 148/80 Blood Pressure 117/62 [Right] O2 Sat by Pulse 96 96 Oximetry 04/21/20 04/21/20 04/21/20 04:32 04:52 05:02 Temperature 98.4 F 98.1 F Pulse Rate 89 83 80 Respiratory 18 16 18 Rate Blood Pressure Blood Pressure 68/48 90/56 101/57 [Right] O2 Sat by Pulse 91 100 100 Oximetry 04/21/20 05:33 Temperature Pulse Rate 77 Respiratory 16 Rate Blood Pressure Blood Pressure 91/56 [Right] O2 Sat by Pulse 100 Oximetry - Lab 04/21/20 15:03 04/21/20 05:45 Most recent lab results Calcium 7.8 mg/dL (8.4-10.2) L 04/21/20 05:45 Medications & Allergies - Medications Allergies/Adverse Reactions: Allergies No Known Allergies Allergy (Verified 01/19/20 05:43) Home Medications: Home Medications Medication Instructions Recorded Confirmed Last Taken Type Brimonidine Tartrate/Timolol 10 ml OP BID 12/01/19 04/20/20 01/18/20 History [Combigan 0.2%-0.5% Eye Drops] Fluticasone [Flonase] 1 spray NS QDAY 12/01/19 04/20/20 01/18/20 History Albuterol Sulfate [Proair 90 mcg IH Q6HR 30 Days 02/02/20 04/20/20 Unknown Rx Digihaler] Calcium Acetate 2,001 mg PO TID #90 02/02/20 04/20/20 02/20/20 Rx Calcium Carbonate [Tums 500MG CHEW] 750 mg PO QHS #30 02/02/20 04/20/20 02/20/20 Rx Gabapentin [Neurontin] 800 mg PO TID #90 tab 02/02/20 04/20/20 02/20/20 Rx Hydralazine HCl 50 mg PO BID #60 tab 02/02/20 04/20/20 02/20/20 Rx Mirtazapine [Remeron 15mg TAB] 15 mg PO QHS #30 tab 02/02/20 04/20/2002/19/20 Rx Ondansetron [Zofran ODT TAB] 8 mg PO Q8HR PRN #20 tab 02/02/20 04/20/20 02/20/20 Rx Torsemide [Demadex] 20 mg PO QDAY #30 tab 02/02/20 04/20/20 02/20/20 Rx Acetaminophen [Acetaminophen TAB] 650 mg PO Q4H PRN tablet 04/21/20 Unknown Rx Aspirin EC [Halfprin EC] 81 mg PO QDAY #30 tablet 04/21/20 Unknown Rx AtorvaSTATin [Lipitor] 40 mg PO QHS #30 tablet 04/21/20 Unknown Rx Calcium Acetate [Phoslo] 2,001 mg PO TIDWM #30 capsule 04/21/20 Unknown Rx Clopidogrel [Plavix] 75 mg PO QDAY #30 tab 04/21/20 Unknown Rx Epoetin Hiro 20,000 Unit [Procrit] 20,000 unit IV GREY vial 04/21/20 Unknown Rx Gabapentin 800 mg PO TID #120 capsule 04/21/20 Unknown Rx Loperamide [Imodium] 2 mg PO Q4HR PRN #24 capsule 04/21/20 Unknown Rx Losartan [Cozaar] 50 mg PO QDAY #30 tablet 04/21/20 Unknown Rx Metoprolol [Lopressor TAB] 12.5 mg PO BID #60 tablet 04/21/20 Unknown Rx Torsemide [Demadex] 20 mg PO QDAY tablet 04/21/20 Unknown Rx calcitrioL [Rocaltrol] 1 mcg PO QDAY #30 cap 04/21/20 Unknown Rx hydrALAZINE [Apresoline TAB] 50 mg PO BID #120 tablet 04/21/20 Unknown Rx levETIRAcetam [Keppra TAB] 500 mg PO BID #60 tablet 04/21/20 Unknown Rx Active Medications: Generic Name Dose Route Start Last Admin Trade Name Freq PRN Reason Stop Dose Admin Acetaminophen 650 mg 04/19/20 19:13 04/20/20 23:52 Tylenol PO 650 mg Q4H PRN Administration Pain MILD(1-3)/Fever >100.5/MCDANIEL Albuterol 2.5 mg 04/19/20 19:56 Proventil IH Q4HRT PRN Shortness Of Breath Aspirin 81 mg 04/20/20 10:00 04/20/20 09:28 Halfprin Ec PO 81 mg QDAY LENCHO Administration Atorvastatin Calcium 40 mg 04/19/20 22:00 04/20/20 22:44 Lipitor PO 40 mg QHS LENCHO Administration Brimonidine/Timolol 1 drops 04/19/20 22:00 04/20/20 22:43 Combigan 0.2-0.5% OU 1 drops BID LENCHO Administration Calcitriol 1 mcg 04/20/20 10:00 04/20/20 09:29 Rocaltrol PO 1 mcg QDAY LENCHO Administration Calcium Acetate 2,001 mg 04/20/20 08:00 04/20/20 17:27 Phoslo PO 2,001 mg TIDWM LENCHO Administration Clopidogrel Bisulfate 75 mg 04/20/20 10:00 04/20/20 09:29 Plavix PO 75 mg QDAY LENCHO Administration Epoetin Hiro 20,000 unit 04/21/20 15:00 Procrit IV GREY LENCHO Famotidine 10 mg 04/19/20 22:00 04/20/20 22:44 Pepcid PO 10 mg BID LENCHO Administration Fluticasone Propionate 50 mcg 04/20/20 10:00 04/20/20 09:26 Flonase NS 50 mcg QDAY LENCHO Administration Gabapentin 800 mg 04/19/20 22:00 04/20/20 22:43 Gabapentin PO 800 mg TID LENCHO Administration Hydralazine HCl 50 mg 04/19/20 22:00 04/20/20 22:41 Apresoline PO 50 mg BID LENCHO Administration Hydromorphone HCl 0.5 mg 04/19/20 19:13 Dilaudid IV Q3H PRN Pain , Severe (7-10) Sodium Chloride 100 mls @ 999 mls/hr 04/19/20 18:27 Nacl 0.9% IV GREY PRN Hypotension Sodium Chloride 500 mls @ 0 mls/hr 04/21/20 08:00 Nacl 0.9% 500 Ml IV 04/21/20 18:00 ONCE LENCHO As Directed Labetalol HCl 10 mg 04/20/20 15:00 Labetalol IV Q4H PRN Hypertension Levetiracetam 500 mg 04/19/20 22:00 04/20/20 22:43 Keppra PO 500 mg BID LENCHO Administration Loperamide HCl 2 mg 04/20/20 15:00 Imodium PO Q2H PRN Diarrhea Losartan Potassium 50 mg 04/19/20 20:00 04/20/20 09:30 Cozaar PO Not Given QDAY LENCHO Metoprolol Tartrate 12.5 mg 04/21/20 10:00 Metoprolol PO BID LENCHO Mirtazapine 15 mg 04/19/20 22:00 04/20/20 22:45 Remeron PO 15 mg QHS LENCHO Administration Ondansetron HCl 8 mg 04/19/20 19:11 Zofran Odt PO Q8HR PRN Nausea Ondansetron HCl 4 mg 04/19/20 19:13 04/20/20 21:34 Zofran IV 4 mg Q8H PRN Administration Nausea And Vomiting Oxycodone/Acetaminophen 1 tab 04/19/20 19:13 Percocet 5/325 PO Q6H PRN Pain, Moderate (4-6) Sodium Chloride 10 ml 04/19/20 22:00 04/20/20 22:45 Sodium Chloride Flush Syringe 10 Ml IV 10 ml BID LENCHO Administration Sodium Chloride 10 ml 04/19/20 19:13 Sodium Chloride Flush Syringe 10 Ml IV PRN PRN LINE FLUSH Torsemide 20 mg 04/19/20 22:00 04/20/20 09:29 Demadex PO 20 mg QDAY LENCHO Administration
[2020-04-21] MEDS: HYDROmorphone 1 MG/1 ML INJ IV PRN ×2 (09:10→15:50)
[2020-04-21] MEDS: METOPROLOL TARTRATE 25 MG TAB PO SCH ×2 (09:10→22:32)
[2020-04-21] MEDS: ASPIRIN EC 81 MG TAB PO SCH (09:10)
[2020-04-21] MEDS: FAMOTIDINE 10 MG TAB PO SCH ×2 (09:10→22:32)
[2020-04-21] MEDS: levETIRAcetam 500 MG TAB PO SCH ×2 (09:10→22:33)
[2020-04-21] MEDS: FLUTICASONE PROPIONATE NASAL SPRAY 16 GM NS SCH (09:10)
[2020-04-21] MEDS: TORSEMIDE 10 MG TAB PO SCH (09:30)
[2020-04-21] MEDS: LOSARTAN 50 MG TAB PO SCH (09:30)
[2020-04-21] MEDS: hydrALAZINE 25 MG TAB PO SCH ×2 (09:30→22:31)
[2020-04-21] MEDS: COMBIGAN 0.2-0.5% OPHTH SOLN OU SCH ×2 (09:30→22:33)
[2020-04-21] MEDS ORDERED: EPOETIN ALFA 20,000 UNIT/1 ML INJ IV SCH (11:00)
[2020-04-21] MEDS ORDERED: EPOETIN ALFA 20,000 UNIT/1 ML INJ ONE (11:11)
[2020-04-21] MEDS ORDERED: SODIUM CHLORIDE 0.9% 250ML 250 ML ONE (11:31)
[2020-04-21 15:36] LABS: Hematocrit 31.4 % (30.3-42.9); Hemoglobin 10.1 gm/dl (10.1-14.3)
--- NOTE | 2020-04-21 15:42 | Discharge Summary ---
Providers - Providers Date of Admission: 04/19/20 18:23 Attending physician: DAREN CONROY 04/19/20 18:19 Consult to Physician [CONS] Stat Comment: Consulting Provider: VIVEK HANLEY Physician Instructions: Reason For Exam: End-stage renal disease needing dialysis Primary care physician: F[employer]ER[employer] FINISHER Hospitalization Reason for admission: Volume overload Condition: Stable Hospital course: 60-year-old female with HTN, CVA x4, TIAs, CHF with coronary stents, DM, CKD on HD TThS, arthritis, seizures, asthma, COPD presents the emergency department on 04/19 for shortness of breath after missing 2 HD sessions due to nausea, vomiting and diarrhea. She arrived for dialysis on 04/19 and the dialysis center requested for the patient to present to the emergency department for emergent dialysis and medical clearance. Work-up in the emergency department revealed hyperkalemia and she was giving IV calcium gluconate and received emergent dialysis. Nephrology was consulted in the emergency department and she received emergent HD overnight on 04/20. In the morning on 04/20 her H&H was 6.5/19.8. She received 1 unit PRBC and her posttransfusion H&H was 7.0/21.3. However on 04/21 her H&H is back down to 6.8/20.9 and she received 1 unit PRBC with HD. Posttransfusion H&H is ----. She has remained hemodynamically stable despite he r persistent anemia which is likely iron deficiency anemia coupled with anemia of chronic disease. Patient was restarted on her home Epogen. She will be discharged and resume her Saturday, , Saturday hemodialysis schedule. Please follow-up with your primary care physician within 1 to 2 weeks of discharge and follow-up with the transport driver and hemodialysis clinic as scheduled. (1) Anemia in chronic kidney disease Current Visit: Yes Status: Chronic Qualifiers: Chronic kidney disease stage: on chronic dialysis Qualified Code(s): N18.6 - End stage renal disease; D63.1 - Anemia in chronic kidney disease; Z99.2 - Dependence on renal dialysis Plan to address problem: -Anemia noted on 04/20 of hemoglobin of 6.5 and s/p transfusion of 1 unit PRBC and posttransfusion hemoglobin is 7.0 -On 04/21 hemoglobin and hematocrit 6.8/20.9 and status post transfusion of 1 unit PRBC -Anemia likely iron deficiency anemia superimposed on anemia of chronic disease and will continue her Epogen (2) Acute hyperkalemia Current Visit: Yes Status: Resolved Plan to address problem: - s/p emergent diet dialysis 04/20 and IV calcium gluconate (3) Volume overload Current Visit: Yes Status: Solved Qualifiers: Hypervolemia type: unspecified Qualified Code(s): E87.70 - Fluid overload, unspecified Plan to address problem: - Secondary to missed hemodialysis s/p emergent dialysis overnight on 04/20 - Will be discharged and reassume her outpatient Saturday, , Saturday hemodialysis schedule (4) ESRD needing dialysis Current Visit: Yes Status: Chronic Plan to address problem: - We will be discharged to assume her Saturday, , Saturday hemodialysis schedule - Restarted on calcium binders and Epogen (5) Diarrhea Current Visit: No Status: Chronic Plan to address problem: - Patient complains of diarrhea which has been ongoing for several months. - Lomotil as needed - Follow-up with primary care physician within 1 to 2 weeks of discharge (6) Hypertension Current Visit: Yes Status: Chronic Qualifiers: Hypertension type: essential hypertension Qualified Code(s): I10 - Essential (primary) hypertension Plan to address problem: - Please resume your antihypertensive regimen - Blood pressure monitoring per primary care physician (7) Seizure disorder Current Visit: Yes Status: Chronic Plan to address problem: - Continue home antiepileptic regimen (8) CHF (congestive heart failure) Current Visit: No Status: Acute Plan to address problem: - Acute exacerbation secondary to volume overload and missed hemodialysis - Received emergent HD overnight on 04/20 - Echocardiogram not needed at this time - Restarted on BB, diuretic, ARB (9) Hyperlipidemia Current Visit: No Status: Chronic Qualifiers: Hyperlipidemia type: mixed hyperlipidemia Qualified Code(s): E78.2 - Mixed hyperlipidemia Plan to address problem: - Continue statin therapy Disposition: - TO HOME OR SELFCARE Time spent for discharge: 40 Core Measure Documentation - Palliative Care Palliative Care/ Comfort Measures: Not Applicable - Core Measures Any of the following diagnoses?: history only Exam - Constitutional Vitals: Temp Pulse Resp BP Pulse Ox 98.2 F 85 20 133/63 100 04/21/20 14:00 04/21/20 14:00 04/21/20 14:00 04/21/20 14:00 04/21/20 05:33 General appearance: Present: no acute distress - EENT Eyes: Present: PERRL, EOM intact ENT: hearing intact, poor dentition - Neck Neck: Present: normal ROM - Respiratory Respiratory effort: normal Respiratory: bilateral: CTA - Cardiovascular Rhythm: regular Heart Sounds: Present: S1 & S2. Absent: systolic murmur, diastolic murmur - Extremities Extremities: no ischemia, pulses intact, pulses symmetrical, No edema, normal temperature, normal color, Full ROM Peripheral Pulses: within normal limits - Abdominal General gastrointestinal: Present: non-tender, non-distended, normal bowel sounds - Integumentary Integumentary: Present: clear, warm, dry - Musculoskeletal Musculoskeletal: strength equal bilaterally - Psychiatric Psychiatric: appropriate mood/affect, cooperative - Neurologic Neurologic: CNII-XII intact, no focal deficits, moves all extremities Plan Activity: advance as tolerated Diet: renal Special Instructions: record daily weights, record daily BP diary Additional Instructions: Please report to your nearest emergency department or contact your primary care physician if you experience worsening symptoms. Please resume your HD schedule. Please follow-up with your primary care physician with in 1 to 2 weeks of discharge. Follow-up with your transport driver as needed. Follow up with: PRIMARY CARE, [Primary Care Provider] - 7 Days NIDIA WATSON MD [Staff Physician] - 7 Days Prescriptions: AtorvaSTATin [Lipitor] 40 mg PO QHS #30 tablet hydrALAZINE [Apresoline TAB] 50 mg PO BID #120 tablet Losartan [Cozaar] 50 mg PO QDAY #30 tablet Gabapentin 800 mg PO TID #120 capsule Aspirin EC [Halfprin EC] 81 mg PO QDAY #30 tablet Loperamide [Imodium] 2 mg PO Q4HR PRN #24 capsule PRN Reason: Diarrhea levETIRAcetam [Keppra TAB] 500 mg PO BID #60 tablet Metoprolol [Lopressor TAB] 12.5 mg PO BID #60 tablet Calcium Acetate [Phoslo] 2,001 mg PO TIDWM #30 capsule Clopidogrel [Plavix] 75 mg PO QDAY #30 tab calcitrioL [Rocaltrol] 1 mcg PO QDAY #30 cap
[2020-04-21] MEDS: CALCITRIOL 0.5 MCG CAP PO SCH (15:50)
[2020-04-21] MEDS: CLOPIDOGREL 75 MG TAB PO SCH (15:50)
[2020-04-21] MEDS: CALCIUM ACETATE 667 MG CAP PO SCH ×3 (18:00→19:18)
[2020-04-21] MEDS: GABAPENTIN 400 MG CAP PO SCH ×2 (19:17→22:32)
[2020-04-21 22:09] VITALS: BP 103/58
[2020-04-21] MEDS: MIRTAZAPINE 15 MG TAB PO SCH (22:32)
== END 2020-04-21 23:35 | disposition home or self-care (01) ==
LOC: ED 13:50 → 4A 18:23
PROVIDERS: ADMIT Internal Medicine; ATTEND Internal Medicine
DX: I13.2 Hypertensive heart and chronic kidney disease with heart failure and with stage 5 chronic kidney disease, or end stage renal disease (principal); E11.22 Type 2 diabetes mellitus with diabetic chronic kidney disease; N18.6 End stage renal disease; I50.33 Acute on chronic diastolic (congestive) heart failure; D63.1 Anemia in chronic kidney disease; E87.70 Fluid overload, unspecified; E87.5 Hyperkalemia; E78.2 Mixed hyperlipidemia; N25.81 Secondary hyperparathyroidism of renal origin; G40.909 Epilepsy, unspecified, not intractable, without status epilepticus; J44.9 Chronic obstructive pulmonary disease, unspecified; R19.7 Diarrhea, unspecified; M19.90 Unspecified osteoarthritis, unspecified site; I25.2 Old myocardial infarction; G43.909 Migraine, unspecified, not intractable, without status migrainosus; Z86.73 Personal history of transient ischemic attack (TIA), and cerebral infarction without residual deficits; Z91.15 Patient's noncompliance with renal dialysis; Z99.2 Dependence on renal dialysis; Z79.82 Long term (current) use of aspirin; Z79.51 Long term (current) use of inhaled steroids; Z79.02 Long term (current) use of antithrombotics/antiplatelets; Z79.899 Other long term (current) drug therapy
CPT/HCPCS: 36415; 36430; 80048; 80053; 80074; 82607; 82728; 82747; 83540; 83550; 85018; 85025; 85027; 85045; 86850; 86900; 86901; 86920; 96374; 96375; 96376; 99291; A9270; G0257; G0378; J0610; J1170; J2405; J7040; J7050; P9016; J0885

== ENCOUNTER 2020-05-17 05:56 | Observation (INO) | payer MEDICARE ==
[2020-05-17 06:53] LABS: Hematocrit 22.5 % (30.3-42.9); Hemoglobin 7.3 gm/dl (10.1-14.3); Mean Corpuscular HGB Conc 33 % (30-34); Mean Corpuscular Volume 85 fl (79-97); Platelet Count 110 K/mm3 (140-440); Red Blood Count 2.66 M/mm3 (3.65-5.03); Red Cell Distribution Width 19.3 % (13.2-15.2)
[2020-05-17 07:07] LABS: INR 1.23 (0.87-1.13)
[2020-05-17 07:08] LABS: Partial Thromboplastin Time 34.6 Sec. (24.2-36.6)
[2020-05-17 07:15] LABS: Albumin 2.6 g/dL (3.9-5); Blood Urea Nitrogen 67 mg/dL (7-17); Calcium 8.3 mg/dL (8.4-10.2); Hemolysis Index 11
[2020-05-17 07:18] LABS: Alanine Aminotransferase < 5 units/L (7-56); BUN/Creatinine Ratio 6
--- NOTE | 2020-05-17 11:57 | Emergency Department Report ---
ED General Adult HPI - General Chief complaint: Nausea/Vomiting/Diarrhea Stated complaint: VOMITING X'S 3 DAYS Time Seen by Provider: 05/17/20 09:41 Source: patient Mode of arrival: Wheelchair Limitations: Physical Limitation - History of Present Illness Initial comments: The patient presents to the emergency department with a chief complaint of nausea and vomiting that has been present for the last 4 days. Patient denies any abdominal pain, chest pain, or shortness of breath. Patient states that her last dialysis treatment was last Saturday which would be the 11 May. -: days(s) (5) Severity scale (0 -10): 0 Consistency: constant, now resolved Improves with: none Worsens with: none Associated Symptoms: denies other symptoms Treatments Prior to Arrival: none - Related Data Home Medications Medication Instructions Recorded Confirmed Last Taken Brimonidine Tartrate/Timolol 10 ml OP BID 12/01/19 04/20/20 01/18/20 [Combigan 0.2%-0.5% Eye Drops] Fluticasone [Flonase] 1 spray NS QDAY 12/01/19 04/20/20 01/18/20 Previous Rx's Medication Instructions Recorded Last Taken Type Albuterol Sulfate [Proair 90 mcg IH Q6HR 30 Days 02/02/20 Unknown Rx Digihaler] Calcium Acetate 2,001 mg PO TID #90 02/02/20 02/20/20 Rx Calcium Carbonate [Tums 500MG CHEW] 750 mg PO QHS #30 02/02/20 02/20/20 Rx Gabapentin [Neurontin] 800 mg PO TID #90 tab 02/02/20 02/20/20 Rx Hydralazine HCl 50 mg PO BID #60 tab 02/02/20 02/20/20 Rx Mirtazapine [Remeron 15mg TAB] 15 mg PO QHS #30 tab 02/02/20 02/20/20 Rx Ondansetron [Zofran ODT TAB] 8 mg PO Q8HR PRN #20 tab 02/02/20 02/20/20 Rx Torsemide [Demadex] 20 mg PO QDAY #30 tab 02/02/20 02/20/20 Rx Acetaminophen [Acetaminophen TAB] 650 mg PO Q4H PRN tablet 04/21/20 Unknown Rx Aspirin EC [Halfprin EC] 81 mg PO QDAY #30 tablet 04/21/20 Unknown Rx AtorvaSTATin [Lipitor] 40 mg PO QHS #30 tablet 04/21/20 Unknown Rx Calcium Acetate [Phoslo] 2,001 mg PO TIDWM #30 capsule 04/21/20 Unknown Rx Clopidogrel [Plavix] 75 mg PO QDAY #30 tab 04/21/20 Unknown Rx Epoetin Hiro 20,000 Unit [Procrit] 20,000 unit IV GREY vial 04/21/20 Unknown Rx Gabapentin 800 mg PO TID #120 capsule 04/21/20 Unknown Rx Loperamide [Imodium] 2 mg PO Q4HR PRN #24 capsule 04/21/20 Unknown Rx Losartan [Cozaar] 50 mg PO QDAY #30 tablet 04/21/20 Unknown Rx Metoprolol [Lopressor TAB] 12.5 mg PO BID #60 tablet 04/21/20 Unknown Rx Torsemide [Demadex] 20 mg PO QDAY tablet 04/21/20 Unknown Rx calcitrioL [Rocaltrol] 1 mcg PO QDAY #30 cap 04/21/20 Unknown Rx hydrALAZINE [Apresoline TAB] 50 mg PO BID #120 tablet 04/21/20 Unknown Rx levETIRAcetam [Keppra TAB] 500 mg PO BID #60 tablet 04/21/20 Unknown Rx Allergies Allergy/AdvReac Type Severity Reaction Status Date / Time No Known Allergies Allergy Verified 01/19/20 05:43 ED Review of Systems ROS: Stated complaint: VOMITING X'S 3 DAYS Other details as noted in HPI Comment: All other systems reviewed and negative Constitutional: denies: chills, fever Eyes: denies: eye pain, eye discharge, vision change ENT: denies: ear pain, throat pain Respiratory: denies: cough, shortness of breath, wheezing Cardiovascular: denies: chest pain, palpitations Endocrine: no symptoms reported Gastrointestinal: nausea. denies: abdominal pain, diarrhea Genitourinary: denies: urgency, dysuria, discharge Musculoskeletal: denies: back pain, joint swelling, arthralgia Skin: denies: rash, lesions Neurological: denies: headache, weakness, paresthesias Psychiatric: denies: anxiety, depression Hematological/Lymphatic: denies: easy bleeding, easy bruising ED Past Medical Hx - Past Medical History Previous Medical History?: Yes Hx Hypertension: Yes Hx CVA: Yes (x4, 6TIAs) Hx Heart Attack/AMI: Yes Hx Congestive Heart Failure: Yes Hx Diabetes: Yes Hx Liver Disease: No Hx Renal Disease: Yes (dialysis 2015, , and Sat) Hx Arthritis: Yes Hx Headaches / Migraines: Yes Hx Seizures: Yes Hx Asthma: Yes Hx COPD: Yes Hx HIV: No - Surgical History Past Surgical History?: Yes Hx Coronary Stent: Yes Hx Pacemaker: No Hx Internal Defibrillator: No Hx Breast Surgery: Yes (breast reduction 1979) Additional Surgical History: breast reduction 1979, av fistula left arm - Social History Smoking Status: Former Smoker Substance Use Type: None - Medications Home Medications: Home Medications Medication Instructions Recorded Confirmed Last Taken Type Brimonidine Tartrate/Timolol 10 ml OP BID 12/01/19 04/20/20 01/18/20 History [Combigan 0.2%-0.5% Eye Drops] Fluticasone [Flonase] 1 spray NS QDAY 12/01/19 04/20/20 01/18/20 History Albuterol Sulfate [Proair 90 mcg IH Q6HR 30 Days 02/02/20 04/20/20 Unknown Rx Digihaler] Calcium Acetate 2,001 mg PO TID #90 02/02/20 04/20/20 02/20/20 Rx Calcium Carbonate [Tums 500MG CHEW] 750 mg PO QHS #30 02/02/20 04/20/20 02/20/20 Rx Gabapentin [Neurontin] 800 mg PO TID #90 tab 02/02/20 04/20/20 02/20/20 Rx Hydralazine HCl 50 mg PO BID #60 tab 02/02/20 04/20/20 02/20/20 Rx Mirtazapine [Remeron 15mg TAB] 15 mg PO QHS #30 tab 02/02/20 04/20/20 02/20/20 Rx Ondansetron [Zofran ODT TAB] 8 mg PO Q8HR PRN #20 tab 02/02/20 04/20/20 02/20/20 Rx Torsemide [Demadex] 20 mg PO QDAY #30 tab 02/02/20 04/20/20 02/20/20 Rx Acetaminophen [Acetaminophen TAB] 650 mg PO Q4H PRN tablet 04/21/20 Unknown Rx Aspirin EC [Halfprin EC] 81 mg PO QDAY #30 tablet 04/21/20 Unknown Rx AtorvaSTATin [Lipitor] 40 mg PO QHS #30 tablet 04/21/20 Unknown Rx Calcium Acetate [Phoslo] 2,001 mg PO TIDWM #30 capsule 04/21/20 Unknown Rx Clopidogrel [Plavix] 75 mg PO QDAY #30 tab 04/21/20 Unknown Rx Epoetin Hiro 20,000 Unit [Procrit] 20,000 unit IV GREY vial 04/21/20 Unknown Rx Gabapentin 800 mg PO TID #120 capsule 04/21/20 Unknown Rx Loperamide [Imodium] 2 mg PO Q4HR PRN #24 capsule 04/21/20 Unknown Rx Losartan [Cozaar] 50 mg PO QDAY #30 tablet 04/21/20 Unknown Rx Metoprolol [Lopressor TAB] 12.5 mg PO BID #60 tablet 04/21/20 Unknown Rx Torsemide [Demadex] 20 mg PO QDAY tablet 04/21/20 Unknown Rx calcitrioL [Rocaltrol] 1 mcg PO QDAY #30 cap 04/21/20 Unknown Rx hydrALAZINE [Apresoline TAB] 50 mg PO BID #120 tablet 04/21/20 Unknown Rx levETIRAcetam [Keppra TAB] 500 mg PO BID #60 tablet 04/21/20 Unknown Rx ED Physical Exam - General Limitations: Physical Limitation General appearance: alert, in no apparent distress - Head Head exam: Present: atraumatic, normocephalic - Eye Eye exam: Present: normal appearance, PERRL, EOMI - ENT ENT exam: Present: mucous membranes moist - Neck Neck exam: Present: normal inspection - Respiratory Respiratory exam: Present: normal lung sounds bilaterally, rales. Absent: respiratory distress - Cardiovascular Cardiovascular Exam: Present: regular rate, normal rhythm. Absent: systolic murmur, diastolic murmur, rubs, gallop - GI/Abdominal GI/Abdominal exam: Present: soft, normal bowel sounds. Absent: distended, tenderness - Extremities Exam Extremities exam: Present: normal inspection - Back Exam Back exam: Present: normal inspection - Neurological Exam Neurological exam: Present: alert, oriented X3, CN II-XII intact. Absent: motor sensory deficit - Psychiatric Psychiatric exam: Present: normal affect, normal mood - Skin Skin exam: Present: warm, dry, intact, normal color. Absent: rash ED Course Vital Signs 05/17/20 05/17/20 05:59 09:16 Temperature 97.7 F Pulse Rate 90 81 Respiratory 18 18 Rate Blood Pressure 171/81 Blood Pressure 173/85 [Right] O2 Sat by Pulse 98 99 Oximetry ED Medical Decision Making - Lab Data Result diagrams: 05/17/20 06:39 05/17/20 06:39 Lab Results 05/17/20 05/17/20 05/17/20 Range/Units 06:39 06:39 06:39 WBC 3.7 L (4.5-11.0) K/mm3 RBC 2.66 L (3.65-5.03) M/mm3 Hgb 7.3 L (10.1-14.3) gm/dl Hct 22.5 L (30.3-42.9) % MCV 85 (79-97) fl MCH 28 (28-32) pg MCHC 33 (30-34) % RDW 19.3 H (13.2-15.2) % Plt Count 110 L (140-440) K/mm3 PT 15.8 H (12.2-14.9) Sec. INR 1.23 H (0.87-1.13) APTT 34.6 (24.2-36.6) Sec. Sodium 140 (137-145) mmol/L Potassium 3.4 L (3.6-5.0) mmol/L Chloride 102.6 (98-107) mmol/L Carbon Dioxide 23 (22-30) mmol/L Anion Gap 18 mmol/L BUN 67 H (7-17) mg/dL Creatinine 11.0 H (0.6-1.2) mg/dL Estimated GFR 4 ml/min BUN/Creatinine Ratio 6 % Glucose 91 (65-100) mg/dL Calcium 8.3 L (8.4-10.2) mg/dL Total Bilirubin 0.50 (0.1-1.2) mg/dL AST 10 (5-40) units/L ALT < 5 L (7-56) units/L Alkaline Phosphatase 87 (35-129) units/L Total Protein 6.7 (6.3-8.2) g/dL Albumin 2.6 L (3.9-5) g/dL Albumin/Globulin Ratio 0.6 % - Radiology Data Radiology results: report reviewed - Medical Decision Making Discussed plan of care with patient Spoke to the nurse practitioner from nephrology and orders will be placed for dialysis Critical care attestation.: If time is entered above; I have spent that time in minutes in the direct care of this critically ill patient, excluding procedure time. ED Disposition Clinical Impression: Volume overload, End stage renal disease on dialysis Disposition: OP ADMIT IP TO THIS HOSP Is pt being admited?: Yes Does the pt Need Aspirin: No Condition: Fair Referrals: REGGIE MOJICA MD [Primary Care Provider] - 3-5 Days
--- NOTE | 2020-05-17 12:10 | XRay Report ---
CHEST 1 VIEW INDICATION / CLINICAL INFORMATION: cough. COMPARISON: 02/22/2020 FINDINGS: SUPPORT DEVICES: None. HEART / MEDIASTINUM: No significant abnormality. LUNGS / PLEURA: Pleural-parenchymal disease in the right lung base. Subsegmental atelectasis in the l eft lung base No pneumothorax. ADDITIONAL FINDINGS: No significant additional findings. 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
[2020-05-17] MEDS ORDERED: SODIUM CHLORIDE 0.9% 100 ML IV PRN (12:30)
[2020-05-17] MEDS ORDERED: LOPERAMIDE 2 MG CAP PO PRN ×2 (20:00→22:35)
[2020-05-17] MEDS ORDERED: FLUTICASONE PROPIONATE NASAL SPRAY 16 GM NS PRN (22:35)
[2020-05-17] MEDS ORDERED: ALBUTEROL SULFATE 90 MCG IH PRN (22:35)
[2020-05-17] MEDS ORDERED: ONDANSETRON 8 MG ODT TAB PO PRN (22:35)
[2020-05-17] MEDS ORDERED: ACETAMINOPHEN 325 MG TAB PO PRN ×2 (22:35→22:43)
[2020-05-17] MEDS ORDERED: ONDANSETRON 4 MG/2 ML INJ IV PRN (22:43)
[2020-05-17] MEDS ORDERED: oxyCODONE /ACETAMINOPHEN 5-325MG TAB PO PRN (22:43)
[2020-05-17] MEDS ORDERED: HYDROmorphone 1 MG/1 ML INJ IV PRN (22:43)
--- NOTE | 2020-05-17 22:51 | History and Physical Report ---
History of Present Illness Date of examination: 05/17/20 Date of admission: 05/17/20 12:17 Chief complaint: Nausea and vomiting for 4 days History of present illness: 60-year-old female with history of end-stage renal disease comes in for nausea and vomiting for 4 days. Patient missed dialysis for 1 week. Last dialysis was last Saturday. Which was 11 May. Shortness of breath present. Orthopnea present. No fever or chills. No exposure to coronavirus. No syncope or seizures. No abdominal pain. - Past Medical History Previous Medical History?: Yes Hx Hypertension: Yes Hx CVA: Yes (x4, 6TIAs) Hx Heart Attack/AMI: Yes Hx Congestive Heart Failure: Yes Hx Diabetes: Yes Hx Renal Disease: Yes (dialysis 2015, , and Sat) Hx Arthritis: Yes Hx Headaches / Migraines: Yes Hx Seizures: Yes Hx Asthma: Yes Hx COPD: Yes - Surgical History Past Surgical History?: Yes Hx Coronary Stent: Yes Hx Internal Defibrillator: No Hx Breast Surgery: Yes (breast reduction 1979) Additional Surgical History: breast reduction 1979, av fistula left arm - Social History Smoking Status: Former Smoker Substance Use Type: None Family history Htn Review of Systems ROS: Stated complaint: VOMITING X'S 3 DAYS Other details as noted in HPI Comment: All other systems reviewed and negative Constitutional: denies: chills, fever Eyes: denies: eye pain, eye discharge, vision change ENT: denies: ear pain, throat pain Respiratory: denies: cough, shortness of breath, wheezing Cardiovascular: denies: chest pain, palpitations Endocrine: no symptoms reported Gastrointestinal: nausea. denies: abdominal pain, diarrhea Genitourinary: denies: urgency, dysuria, discharge Musculoskeletal: denies: back pain, joint swelling, arthralgia Skin: denies: rash, lesions Neurological: denies: headache, weakness, paresthesias Psychiatric: denies: anxiety, depression Hematological/Lymphatic: denies: easy bleeding, easy bruising Medications and Allergies Allergies Allergy/AdvReac Type Severity Reaction Status Date / Time No Known Allergies Allergy Verified 01/19/20 05:43 Home Medications Medication Instructions Recorded Confirmed Last Taken Type Fluticasone [Flonase] 1 spray NS QDAY PRN 12/01/19 05/17/20 01/18/20 History Calcium Carbonate [Tums 500MG CHEW] 750 mg PO QHS #30 02/02/20 05/17/20 02/20/20 Rx Gabapentin [Neurontin] 800 mg PO TID #90 tab 02/02/20 05/17/20 02/20/20 Rx Mirtazapine [Remeron 15mg TAB] 15 mg PO QHS #30 tab 02/02/20 05/17/20 02/20/20 Rx Acetaminophen [Acetaminophen TAB] 650 mg PO Q4H PRN tablet 04/21/20 05/17/20 Unknown Rx Aspirin EC [Halfprin EC] 81 mg PO QDAY #30 tablet 04/21/20 05/17/20 Unknown Rx AtorvaSTATin [Lipitor] 40 mg PO QHS #30 tablet 04/21/20 05/17/20 Unknown Rx Calcium Acetate [Phoslo] 2,001 mg PO TIDWM #30 capsule 04/21/20 05/17/20 Unknown Rx Clopidogrel [Plavix] 75 mg PO QDAY #30 tab 04/21/20 05/17/20 Unknown Rx Epoetin Hiro 20,000 Unit [Procrit] 20,000 unit IV GREY vial 04/21/20 05/17/20 Unknown Rx Loperamide [Imodium] 2 mg PO Q4HR PRN #24 capsule 04/21/20 05/17/20 Unknown Rx Losartan [Cozaar] 50 mg PO QDAY #30 tablet 04/21/20 05/17/20 Unknown Rx Metoprolol [Lopressor TAB] 12.5 mg PO BID #60 tablet 04/21/20 05/17/20 Unknown Rx Torsemide [Demadex] 20 mg PO QDAY tablet 04/21/20 05/17/20 Unknown Rx calcitrioL [Rocaltrol] 1 mcg PO QDAY #30 cap 04/21/20 05/17/20 Unknown Rx hydrALAZINE [Apresoline TAB] 50 mg PO BID #120 tablet 04/21/20 05/17/20 Unknown Rx levETIRAcetam [Keppra TAB] 500 mg PO BID #60 tablet 04/21/20 05/17/20 Unknown Rx Albuterol Sulfate [Proair 90 mcg IH Q6HR PRN 05/17/20 05/17/20 Unknown History Digihaler] Ondansetron [Zofran ODT TAB] 8 mg PO Q8HR PRN 05/17/20 05/17/20 Unknown History Active Meds: Active Medications Acetaminophen (Tylenol) 650 mg PO Q4H PRN PRN Reason: Pain MILD(1-3)/Fever >100.5/MCDANIEL Acetaminophen (Tylenol) 650 mg PO Q4H PRN PRN Reason: Pain MILD(1-3)/Fever >100.5/MCDANIEL Aspirin (Halfprin Ec) 81 mg PO QDAY COUNT [facility]CLUDES [facility] Atorvastatin Calcium (Lipitor) 40 mg PO QHS COUNT INCLUDES [facility] Calcitriol (Rocaltrol) 1 mcg PO QDAY COUNT INCLUDES [facility] Calcium Acetate (Phoslo) 2,001 mg PO TIDWM COUNT INCLUDES [facility] Calcium Carbonate/Glycine (Tums) 750 mg PO QHS COUNT INCLUDES [facility] Clopidogrel Bisulfate (Plavix) 75 mg PO QDAY COUNT INCLUDES [facility] Famotidine (Pepcid) 10 mg PO BID COUNT INCLUDES [facility] Fluticasone Propionate (Flonase) 50 mcg NS QDAY PRN PRN Reason: Nasal Congestion Heparin Sodium (Porcine) (Heparin) 5,000 unit SUB-Q Q12HR COUNT INCLUDES [facility] Hydralazine HCl (Apresoline) 50 mg PO BID COUNT INCLUDES [facility] Hydromorphone HCl (Dilaudid) 0.5 mg IV Q3H PRN PRN Reason: Pain , Severe (7-10) Sodium Chloride (Nacl 0.9%) 100 mls @ 999 mls/hr IV GREY PRN PRN Reason: Hypotension Levetiracetam (Keppra) 500 mg PO BID COUNT INCLUDES [facility] Loperamide HCl (Imodium) 2 mg PO Q12HR PRN PRN Reason: Diarrhea Last Admin: 05/17/20 21:45 Dose: 2 mg Documented by: Loperamide HCl (Imodium) 2 mg PO Q4HR PRN PRN Reason: Diarrhea Losartan Potassium (Cozaar) 50 mg PO QDAY COUNT INCLUDES [facility] Metoprolol Tartrate (Metoprolol) 12.5 mg PO BID COUNT INCLUDES [facility] Mirtazapine (Remeron) 15 mg PO QHS COUNT INCLUDES [facility] Miscellaneous Medication (Albuterol Sulfate [Proair Digihaler]) 90 mcg IH Q6HR PRN PRN Reason: Congestion Miscellaneous Medication (Gabapentin [Neurontin]) 800 mg PO TID COUNT INCLUDES [facility] Ondansetron HCl (Zofran Odt) 8 mg PO Q8HR PRN PRN Reason: Nausea Ondansetron HCl (Zofran) 4 mg IV Q8H PRN PRN Reason: Nausea And Vomiting Oxycodone/Acetaminophen (Percocet 5/325) 1 tab PO Q6H PRN PRN Reason: Pain, Moderate (4-6) Sodium Chloride (Sodium Chloride Flush Syringe 10 Ml) 10 ml IV BID [facility] Sodium Chloride (Sodium Chloride Flush Syringe 10 Ml) 10 ml IV PRN PRN PRN Reason: LINE FLUSH Torsemide (Demadex) 20 mg PO QDAY [facility] Exam - Constitutional Vitals: Temp Pulse Resp BP Pulse Ox 98.1 F 86 20 146/71 99 05/17/20 21:25 05/17/20 21:25 05/17/20 21:25 05/17/20 21:25 05/17/20 21:25 General appearance: Present: mild distress, well-nourished - EENT Eyes: Present: PERRL ENT: hearing intact, clear oral mucosa - Neck Neck: Present: supple, normal ROM - Respiratory Respiratory effort: normal Respiratory: bilateral: CTA, rales - Cardiovascular Heart rate: 78 Rhythm: regular Heart Sounds: Present: S1 & S2. Absent: rub, click - Extremities Extremities: pulses symmetrical, No edema Peripheral Pulses: within normal limits - Abdominal General gastrointestinal: Present: soft, non-tender, non-distended, normal bowel sounds Female genitourinary: Present: normal - Integumentary Integumentary: Present: clear, warm, dry - Musculoskeletal Musculoskeletal: gait normal, strength equal bilaterally - Psychiatric Psychiatric: appropriate mood/affect, intact judgment & insight - Neurologic Neurologic: CNII-XII intact, moves all extremities - Allied Health Allied health notes reviewed: nursing, case management HEART Score - HEART Score History: Moderately suspicious Age: > 65 Risk factors: > 3 risk factors or hx of atherosclerotic disease Troponin: 1-3x normal limit - Critical Actions Critical Actions: 4-6 pts:12-16.6% risk of adverse cardiac event. Should be admitted Results - Labs CBC & Chem 7: 05/17/20 06:39 05/17/20 06:39 Labs: Laboratory Last Values WBC 3.7 K/mm3 (4.5-11.0) L 05/17/20 06:39 RBC 2.66 M/mm3 (3.65-5.03) L 05/17/20 06:39 Hgb 7.3 gm/dl (10.1-14.3) L 05/17/20 06:39 Hct 22.5 % (30.3-42.9) L 05/17/20 06:39 MCV 85 fl (79-97) 05/17/20 06:39 MCH 28 pg (28-32) 05/17/20 06:39 MCHC 33 % (30-34) 05/17/20 06:39 RDW 19.3 % (13.2-15.2) H 05/17/20 06:39 Plt Count 110 K/mm3 (140-440) L 05/17/20 06:39 PT 15.8 Sec. (12.2-14.9) H 05/17/20 06:39 INR 1.23 (0.87-1.13) H 05/17/20 06:39 APTT 34.6 Sec. (24.2-36.6) 05/17/20 06:39 Sodium 140 mmol/L (137-145) 05/17/20 06:39 Potassium 3.4 mmol/L (3.6-5.0) L 05/17/20 06:39 Chloride 102.6 mmol/L (98-107) 05/17/20 06:39 Carbon Dioxide 23 mmol/L (22-30) 05/17/20 06:39 Anion Gap 18 mmol/L 05/17/20 06:39 BUN 67 mg/dL (7-17) H 05/17/20 06:39 Creatinine 11.0 mg/dL (0.6-1.2) H 05/17/20 06:39 Estimated GFR 4 ml/min 05/17/20 06:39 BUN/Creatinine Ratio 6 % 05/17/20 06:39 Glucose 91 mg/dL (65-100) 05/17/20 06:39 Calcium 8.3 mg/dL (8.4-10.2) L 05/17/20 06:39 Total Bilirubin 0.50 mg/dL (0.1-1.2) 05/17/20 06:39 AST 10 units/L (5-40) 05/17/20 06:39 ALT < 5 units/L (7-56) L 05/17/20 06:39 Alkaline Phosphatase 87 units/L (35-129) 05/17/20 06:39 Total Protein 6.7 g/dL (6.3-8.2) 05/17/20 06:39 Albumin 2.6 g/dL (3.9-5) L 05/17/20 06:39 Albumin/Globulin Ratio 0.6 % 05/17/20 06:39 Short CBC 05/17/20 Range/Units 06:39 WBC 3.7 L (4.5-11.0) K/mm3 Hgb 7.3 L (10.1-14.3) gm/dl Hct 22.5 L (30.3-42.9) % Plt Count 110 L (140-440) K/mm3 BMP 05/17/20 06:39 Sodium 140 Potassium 3.4 L Chloride 102.6 Carbon Dioxide 23 BUN 67 H Creatinine 11.0 H Glucose 91 Calcium 8.3 L Liver Function 05/17/20 Range/Units 06:39 Total Bilirubin 0.50 (0.1-1.2) mg/dL AST 10 (5-40) units/L ALT < 5 L (7-56) units/L Alkaline Phosphatase 87 (35-129) units/L Albumin 2.6 L (3.9-5) g/dL - Imaging and Cardiology EKG: report reviewed Chest x-ray: report reviewed Imaging and Cardiology: Chest x-ray IMPRESSION: Pleural-parenchymal disease has developed in the right lung base since 02/22/2020 with subsegmental atelectasis in the left lung base [place]/IV: IV Catheter Type [Right INT / Saline Lock Antecubital] Assessment and Plan Advance Directives: Yes (Full code) VTE prophylaxis?: Chemical Plan of care discussed with patient/family: Yes - Patient Problems (1) Acute exacerbation of CHF (congestive heart failure) Current Visit: No Status: Chronic Qualifiers: Heart failure type: combined systolic and diastolic Qualified Code(s): I50.43 - Acute on chronic combined systolic (congestive) and diastolic (congestive) heart failure Plan to address problem: Secondary to volume overload Hemodialysis for increased ultrafiltration (2) Volume overload Current Visit: Yes Status: Acute Qualifiers: Plan to address problem: Patient to get emergent hemodialysis today (3) End stage renal disease on dialysis Current Visit: Yes Status: Chronic Plan to address problem: Continue hemodialysis (4) Hypertension Current Visit: No Status: Chronic Qualifiers: Hypertension type: essential hypertension Qualified Code(s): I10 - Essential (primary) hypertension Plan to address problem: Continue antihypertensives (5) Seizure disorder Current Visit: No Status: Chronic Plan to address problem: Continue antibiotics epileptic drugs (6) COPD (chronic obstructive pulmonary disease) Current Visit: Yes Status: Chronic Qualifiers: COPD type: unspecified COPD Qualified Code(s): J44.9 - Chronic obstructive pulmonary disease, unspecified Plan to address problem: Continue bronchodilators (7) Peripheral neuropathy Current Visit: Yes Status: Chronic Qualifiers: Peripheral neuropathy type: polyneuropathy, unspecified Qualified Code(s): G62.9 - Polyneuropathy, unspecified Plan to address problem: Continue gabapentin (8) Coronary artery disease Current Visit: Yes Status: Chronic Qualifiers: Coronary Disease-Associated Artery/Lesion type: [place] artery [place] vs. transplanted heart: [place] heart Plan to address problem: Continue Plavix and isosorbide (9) DVT prophylaxis Current Visit: Yes Status: Acute Plan to address problem: On heparin and GI prophylaxis (10) Discharge planning issues Current Visit: Yes Status: Acute Plan to address problem: Patient in observation status If not discharged tomorrow-changed to inpatient status
[2020-05-17] MEDS ORDERED: ALBUTEROL 8.5 GM MDI INHALATION IH PRN (23:08)
[2020-05-17] MEDS: levETIRAcetam 500 MG TAB PO SCH (23:11)
[2020-05-17] MEDS: hydrALAZINE 25 MG TAB PO SCH (23:12)
[2020-05-17] MEDS: HEPARIN 5,000 UNIT/1 ML VIAL SUB-Q SCH (23:15)
[2020-05-18] MEDS ORDERED: ALBUTEROL 2.5 MG/3 ML NEBU IH PRN (07:53)
[2020-05-18] MEDS ORDERED: GABAPENTIN 400 MG CAP PO SCH (08:00)
[2020-05-18] MEDS ORDERED: METOPROLOL TARTRATE 25 MG TAB PO SCH (08:00)
--- NOTE | 2020-05-18 08:51 | Consultation ---
History of Present Illness - Reason for Consult Consult date: 05/18/20 end stage renal disease Medications and Allergies Allergies Allergy/AdvReac Type Severity Reaction Status Date / Time No Known Allergies Allergy Verified 01/19/20 05:43 Home Medications Medication Instructions Recorded Confirmed Last Taken Type Fluticasone [Flonase] 1 spray NS QDAY PRN 12/01/19 05/17/20 01/18/20 History Calcium Carbonate [Tums 500MG CHEW] 750 mg PO QHS #30 02/02/20 05/17/20 02/20/20 Rx Gabapentin [Neurontin] 800 mg PO TID #90 tab 02/02/20 05/17/20 02/20/20 Rx Mirtazapine [Remeron 15mg TAB] 15 mg PO QHS #30 tab 02/02/20 05/17/20 02/20/20 Rx Acetaminophen [Acetaminophen TAB] 650 mg PO Q4H PRN tablet 04/21/20 05/17/20 Unknown Rx Aspirin EC [Halfprin EC] 81 mg PO QDAY #30 tablet 04/21/20 05/17/20 Unknown Rx AtorvaSTATin [Lipitor] 40 mg PO QHS #30 tablet 04/21/20 05/17/20 Unknown Rx Calcium Acetate [Phoslo] 2,001 mg PO TIDWM #30 capsule 04/21/20 05/17/20 Unknown Rx Clopidogrel [Plavix] 75 mg PO QDAY #30 tab 04/21/20 05/17/20 Unknown Rx Epoetin Hiro 20,000 Unit [Procrit] 20,000 unit IV GREY vial 04/21/20 05/17/20 Unknown Rx Loperamide [Imodium] 2 mg PO Q4HR PRN #24 capsule 04/21/20 05/17/20 Unknown Rx Losartan [Cozaar] 50 mg PO QDAY #30 tablet 04/21/20 05/17/20 Unknown Rx Metoprolol [Lopressor TAB] 12.5 mg PO BID #60 tablet 04/21/20 05/17/20 Unknown Rx Torsemide [Demadex] 20 mg PO QDAY tablet 04/21/20 05/17/20 Unknown Rx calcitrioL [Rocaltrol] 1 mcg PO QDAY #30 cap 04/21/20 05/17/20 Unknown Rx hydrALAZINE [Apresoline TAB] 50 mg PO BID #120 tablet 04/21/20 05/17/20 Unknown Rx levETIRAcetam [Keppra TAB] 500 mg PO BID #60 tablet 04/21/20 05/17/20 Unknown Rx Albuterol Sulfate [Proair 90 mcg IH Q6HR PRN 05/17/20 05/17/20 Unknown History Digihaler] Ondansetron [Zofran ODT TAB] 8 mg PO Q8HR PRN 05/17/20 05/17/20 Unknown History Active Meds: Active Medications Acetaminophen (Tylenol) 650 mg PO Q4H PRN PRN Reason: Pain MILD(1-3)/Fever >100.5/MCDANIEL Albuterol (Proventil) 2.5 mg IH Q6HRT PRN PRN Reason: Shortness Of Breath Aspirin (Halfprin Ec) 81 mg PO QDAY [facility] Atorvastatin Calcium (Lipitor) 40 mg PO QHS [facility] Calcitriol (Rocaltrol) 1 mcg PO QDAY [facility] Calcium Acetate (Phoslo) 2,001 mg PO TIDWM [facility] Calcium Carbonate/Glycine (Tums) 750 mg PO QHS [facility] Clopidogrel Bisulfate (Plavix) 75 mg PO QDAY [facility] Famotidine (Pepcid) 10 mg PO BID [facility] Fluticasone Propionate (Flonase) 50 mcg NS QDAY PRN PRN Reason: Nasal Congestion Gabapentin (Gabapentin) 800 mg PO TID [facility] Heparin Sodium (Porcine) (Heparin) 5,000 unit SUB-Q Q12HR [facility] Last Admin: 05/17/20 23:15 Dose: Not Given Documented by: Hydralazine HCl (Apresoline) 50 mg PO BID [facility] Last Admin: 05/17/20 23:12 Dose: 50 mg Documented by: Hydromorphone HCl (Dilaudid) 0.5 mg IV Q3H PRN PRN Reason: Pain , Severe (7-10) Sodium Chloride (Nacl 0.9%) 100 mls @ 999 mls/hr IV GREY PRN PRN Reason: Hypotension Levetiracetam (Keppra) 500 mg PO BID [facility] Last Admin: 05/17/20 23:11 Dose: 500 mg Documented by: Loperamide HCl (Imodium) 2 mg PO Q4H PRN PRN Reason: Diarrhea Losartan Potassium (Cozaar) 50 mg PO QDAY [facility] Metoprolol Tartrate (Metoprolol) 12.5 mg PO BID@0800,1700 [facility] Mirtazapine (Remeron) 15 mg PO QHS [facility] Ondansetron HCl (Zofran Odt) 8 mg PO Q8H PRN PRN Reason: Nausea Ondansetron HCl (Zofran) 4 mg IV Q8H PRN PRN Reason: Nausea And Vomiting Oxycodone/Acetaminophen (Percocet 5/325) 1 tab PO Q6H PRN PRN Reason: Pain, Moderate (4-6) Sodium Chloride (Sodium Chloride Flush Syringe 10 Ml) 10 ml IV BID [facility] Sodium Chloride (Sodium Chloride Flush Syringe 10 Ml) 10 ml IV PRN PRN PRN Reason: LINE FLUSH Torsemide (Demadex) 20 mg PO QDAY [facility] Exam - Vital Signs Vital signs: Vital Signs Temp Pulse Resp BP Pulse Ox 97.7 F 90 18 171/81 98 05/17/20 05:59 05/17/20 05:59 05/17/20 05:59 05/17/20 05:59 05/17/20 05:59 Results - Lab Results 05/17/20 06:39 05/17/20 06:39 Most recent lab results Calcium 8.3 mg/dL (8.4-10.2) L 05/17/20 06:39
[2020-05-18] MEDS: CALCIUM ACETATE 667 MG CAP PO SCH ×2 (09:45→12:52)
[2020-05-18] MEDS: hydrALAZINE 25 MG TAB PO SCH (09:46)
[2020-05-18] MEDS: levETIRAcetam 500 MG TAB PO SCH (09:46)
[2020-05-18] MEDS: HEPARIN 5,000 UNIT/1 ML VIAL SUB-Q SCH (09:46)
[2020-05-18 09:50] LABS: Hematocrit 21.1 % (30.3-42.9); Mean Corpuscular HGB Conc 33 % (30-34); Mean Corpuscular Volume 83 fl (79-97); Red Blood Count 2.53 M/mm3 (3.65-5.03); Red Cell Distribution Width 19.2 % (13.2-15.2)
[2020-05-18 09:57] LABS: Platelet Count 91 K/mm3 (140-440)
[2020-05-18] MEDS ORDERED: FAMOTIDINE 10 MG TAB PO SCH (10:00)
[2020-05-18] MEDS ORDERED: CALCITRIOL 0.5 MCG CAP PO SCH (10:00)
[2020-05-18] MEDS ORDERED: LOSARTAN 50 MG TAB PO SCH (10:00)
[2020-05-18] MEDS ORDERED: ASPIRIN EC 81 MG TAB PO SCH (10:00)
[2020-05-18] MEDS ORDERED: CLOPIDOGREL 75 MG TAB PO SCH (10:00)
[2020-05-18] MEDS ORDERED: TORSEMIDE 10 MG TAB PO SCH (10:00)
[2020-05-18 10:07] LABS: Alanine Aminotransferase < 5 units/L (7-56); Albumin 2.8 g/dL (3.9-5); BUN/Creatinine Ratio 5; Blood Urea Nitrogen 30 mg/dL (7-17); Calcium 8.3 mg/dL (8.4-10.2); Hemolysis Index 0
--- NOTE | 2020-05-18 10:07 | Discharge Summary ---
Providers - Providers Date of Admission: 05/17/20 12:17 Date of discharge: 05/18/20 Attending physician: DIYA LO 05/17/20 12:04 Consult to Physician [CONS] Routine Comment: Consulting Provider: VIVEK HANLEY Physician Instructions: Reason For Exam: esrd/dialysis Primary care physician: REGGIE JEFFERSON MD Hospitalization Condition: Fair Disposition: DC-01 TO HOME OR SELFCARE Time spent for discharge: 34 minutes Core Measure Documentation - Palliative Care Palliative Care/ Comfort Measures: Not Applicable Exam - Constitutional Vitals: Temp Pulse Resp BP Pulse Ox 98.5 F 88 20 124/63 98 05/18/20 04:15 05/18/20 04:15 05/18/20 04:15 05/18/20 04:15 05/18/20 04:15 Plan Activity: advance as tolerated Weight Bearing Status: Non-Weight Bearing Diet: renal Special Instructions: restrict fluid intake to (1.5 l perday) Follow up with: REGGIE MOJICA MD [Primary Care Provider] - 3-5 Days
[2020-05-18 11:49] LABS: Anisocytosis Few; Basophils % (Manual) 0 % (0.0-1.8); Hypochromasia 1+; Platelet Estimate Consistent w Auto; Total Cells Counted 100
--- NOTE | 2020-05-18 12:46 | XRay Report ---
XR chest 1V ap INDICATION / CLINICAL INFORMATION: SOB. COMPARISON: Radiograph from yesterday. FINDINGS: SUPPORT DEVICES: Unchanged. HEART / MEDIASTINUM: Unchanged. LUNGS / PLEURA: Persistent but improving effusions. Persistent pulmonary vascular congestion. Right b asilar parenchymal opacity. No pneumothorax. ADDITIONAL FINDINGS: No significant additional findings. IMPRESSION: 1. Persistent but improving effusions 2. Bibasilar opacity is likely atelectasis versus airspace disease. Signer Name: Stef Magana MD Signed: 05/18/2020 12:42 PM Workstation Name: [id number]
[2020-05-18 14:00] VITALS: BP 119/64
[2020-05-18 15:27] LABS: Hepatitis B Surface Antigen Non-Reactive (Negative); Hepatitis C Virus Antibody Non-Reactive (NonReactive)
[2020-05-18] MEDS ORDERED: CALCIUM CARBONATE 500 MG TAB CHEW PO SCH (22:00)
[2020-05-18] MEDS ORDERED: MIRTAZAPINE 15 MG TAB PO SCH (22:00)
== END 2020-05-18 14:48 | disposition home or self-care (01) ==
LOC: ED 05:56 → 3A 12:17
PROVIDERS: ADMIT Internal Medicine; ATTEND Internal Medicine
DX: I13.2 Hypertensive heart and chronic kidney disease with heart failure and with stage 5 chronic kidney disease, or end stage renal disease (principal); I50.9 Heart failure, unspecified; N18.6 End stage renal disease; E87.70 Fluid overload, unspecified; J44.9 Chronic obstructive pulmonary disease, unspecified; G40.909 Epilepsy, unspecified, not intractable, without status epilepticus; I25.10 Atherosclerotic heart disease of native coronary artery without angina pectoris; G62.9 Polyneuropathy, unspecified; M19.90 Unspecified osteoarthritis, unspecified site; G43.909 Migraine, unspecified, not intractable, without status migrainosus; Z86.73 Personal history of transient ischemic attack (TIA), and cerebral infarction without residual deficits; Z99.2 Dependence on renal dialysis; Z98.890 Other specified postprocedural states; Z95.1 Presence of aortocoronary bypass graft; Z87.891 Personal history of nicotine dependence; Z79.82 Long term (current) use of aspirin; Z79.899 Other long term (current) drug therapy
CPT/HCPCS: 36415; 71045; 80053; 80074; 83036; 85007; 85025; 85027; 85610; 85730; 87641; 96372; 99284; G0378; J1644; Q0162

== ENCOUNTER 2020-10-28 12:38 | Emergency (ER) | payer MEDICARE ==
--- NOTE | 2020-10-28 13:08 | Emergency Department Report ---
ED Shortness of Breath HPI - General Stated Complaint: ABD PAIN Time Seen by Provider: 10/28/20 12:48 - History of Present Illness Initial Comments: 60-year-old female, history of ESRD ([facility] dialysis), CHF (EF less than 35%), pulmonary hypertension, depression, diabetes, CAD with stents, COPD (not on home oxygen), chronic diarrhea, presents to ED with shortness of breath. Patient was seen at her PCPs office today and sent to the ER for shortness of breath. Patient normally gets scheduled paracentesis every 2 weeks, however she missed her appointment 3 days ago. She also missed her dialysis appointment on yesterday because she states she was in too much pain secondary to her abdominal distention, so she did not go to dialysis. Patient was last dialyzed 3 days ago. Patient reports she feels short of breath because "there is too much fluid on my stomach." PCP called EMS for evaluation of shortness of breath. She was given nitroglycerin in the office by PCP for possible ACS. Patient denies any fever or cough, chest pain, known exposure to anyone who is tested positive for COVID-19. Patient states she has not yet received her COVID-19 vaccine. Complaint: shortness of breath -: days(s) (2) Severity: moderate Quality: other (Fullness) Consistency: constant Improves With: nothing Worsens With: nothing Known History Of: COPD Treatments Prior to Arrival: oxygen, nitroglycerin - Related Data Home Oxygen Therapy: No Home Medications Medication Instructions Recorded Confirmed Last Taken Fluticasone [Flonase] 1 spray NS QDAY PRN 12/01/19 05/17/20 01/18/20 Albuterol Sulfate [Proair 90 mcg IH Q6HR PRN 05/17/20 05/17/20 Unknown Digihaler] Previous Rx's Medication Instructions Recorded Last Taken Type Calcium Carbonate [Tums 500MG CHEW] 750 mg PO QHS #30 02/02/20 02/20/20 Rx Gabapentin [Neurontin] 800 mg PO TID #90 tab 02/02/20 02/20/20 Rx Mirtazapine [Remeron 15mg TAB] 15 mg PO QHS #30 tab 02/02/20 02/20/20 Rx Acetaminophen [Acetaminophen TAB] 650 mg PO Q4H PRN tablet 04/21/20 Unknown Rx Aspirin EC [Halfprin EC] 81 mg PO QDAY #30 tablet 04/21/20 Unknown Rx AtorvaSTATin [Lipitor] 40 mg PO QHS #30 tablet 04/21/20 Unknown Rx Calcium Acetate [Phoslo] 2,001 mg PO TIDWM #30 capsule 04/21/20 Unknown Rx Clopidogrel [Plavix] 75 mg PO QDAY #30 tab 04/21/20 Unknown Rx Epoetin Hiro 20,000 Unit [Procrit] 20,000 unit IV GREY vial 04/21/20 Unknown Rx Loperamide [Imodium] 2 mg PO Q4HR PRN #24 capsule 04/21/20 Unknown Rx Losartan [Cozaar] 50 mg PO QDAY #30 tablet 04/21/20 Unknown Rx Metoprolol [Lopressor TAB] 12.5 mg PO BID #60 tablet 04/21/20 Unknown Rx Torsemide [Demadex] 20 mg PO QDAY tablet 04/21/20 Unknown Rx calcitrioL [Rocaltrol] 1 mcg PO QDAY #30 cap 04/21/20 Unknown Rx hydrALAZINE [Apresoline TAB] 50 mg PO BID #120 tablet 04/21/20 Unknown Rx levETIRAcetam [Keppra TAB] 500 mg PO BID #60 tablet 04/21/20 Unknown Rx Azithromycin [Zithromax Z-TIMOTHY] 250 mg PO DAILY #6 tab 05/18/20 Unknown Rx Ondansetron [Zofran ODT TAB] 8 mg PO Q8HR PRN #10 05/18/20 Unknown Rx oxyCODONE /ACETAMINOPHEN [Percocet 1 tab PO Q6H PRN #10 tablet 05/18/20 Unknown Rx 5/325 mg] Allergies Allergy/AdvReac Type Severity Reaction Status Date / Time No Known Allergies Allergy Verified 01/19/20 05:43 ED Review of Systems ROS: Stated complaint: ABD PAIN Other details as noted in HPI Comment: All other systems reviewed and negative Constitutional: denies: chills, fever Respiratory: shortness of breath. denies: cough Cardiovascular: denies: chest pain Gastrointestinal: abdominal pain. denies: nausea, vomiting Musculoskeletal: other (Denies lower extremity swelling) ED Past Medical Hx - Past Medical History Hx Hypertension: Yes Hx CVA: Yes (x4, 6TIAs) Hx Heart Attack/AMI: Yes Hx Congestive Heart Failure: Yes Hx Diabetes: Yes Hx Liver Disease: No Hx Renal Disease: Yes (dialysis 2015 Tue, Thur, and Sat) Hx Sickle Cell Disease: No Hx Arthritis: Yes Hx Headaches / Migraines: Yes Hx Seizures: Yes Hx Asthma: Yes Hx COPD: Yes Hx HIV: No - Surgical History Hx Coronary Stent: Yes Hx Pacemaker: No Hx Internal Defibrillator: No Hx Breast Surgery: Yes (breast reduction 1979) Additional Surgical History: breast reduction 1979, av fistula left arm - Social History Smoking Status: Former Smoker - Medications Home Medications: Home Medications Medication Instructions Recorded Confirmed Last Taken Type Fluticasone [Flonase] 1 spray NS QDAY PRN 12/01/19 05/17/20 01/18/20 History Calcium Carbonate [Tums 500MG CHEW] 750 mg PO QHS #30 02/02/20 05/17/20 02/20/20 Rx Gabapentin [Neurontin] 800 mg PO TID #90 tab 02/02/20 05/17/20 02/20/20 Rx Mirtazapine [Remeron 15mg TAB] 15 mg PO QHS #30 tab 02/02/20 05/17/20 02/20/20 Rx Acetaminophen [Acetaminophen TAB] 650 mg PO Q4H PRN tablet 04/21/20 05/17/20 Unknown Rx Aspirin EC [Halfprin EC] 81 mg PO QDAY #30 tablet 04/21/20 05/17/20 Unknown Rx AtorvaSTATin [Lipitor] 40 mg PO QHS #30 tablet 04/21/20 05/17/20 Unknown Rx Calcium Acetate [Phoslo] 2,001 mg PO TIDWM #30 capsule 04/21/20 05/17/20 Unknown Rx Clopidogrel [Plavix] 75 mg PO QDAY #30 tab 04/21/20 05/17/20 Unknown Rx Epoetin Hiro 20,000 Unit [Procrit] 20,000 unit IV GREY vial 04/21/20 05/17/20 Unknown Rx Loperamide [Imodium] 2 mg PO Q4HR PRN #24 capsule 04/21/20 05/17/20 Unknown Rx Losartan [Cozaar] 50 mg PO QDAY #30 tablet 04/21/20 05/17/20 Unknown Rx Metoprolol [Lopressor TAB] 12.5 mg PO BID #60 tablet 04/21/20 05/17/20 Unknown Rx Torsemide [Demadex] 20 mg PO QDAY tablet 04/21/20 05/17/20 Unknown Rx calcitrioL [Rocaltrol] 1 mcg PO QDAY #30 cap 04/21/20 05/17/20 Unknown Rx hydrALAZINE [Apresoline TAB] 50 mg PO BID #120 tablet 04/21/20 05/17/20 Unknown Rx levETIRAcetam [Keppra TAB] 500 mg PO BID #60 tablet 04/21/20 05/17/20 Unknown Rx Albuterol Sulfate [Proair 90 mcg IH Q6HR PRN 05/17/20 05/17/20 Unknown History Digihaler] Azithromycin [Zithromax Z-TIMOTHY] 250 mg PO DAILY #6 tab 05/18/20 Unknown Rx Ondansetron [Zofran ODT TAB] 8 mg PO Q8HR PRN #10 05/18/20 Unknown Rx oxyCODONE /ACETAMINOPHEN [Percocet 1 tab PO Q6H PRN #10 tablet 05/18/20 Unknown Rx 5/325 mg] ED Physical Exam - General General appearance: alert, in no apparent distress - Head Head exam: Present: atraumatic, normocephalic - Eye Eye exam: Present: normal appearance, EOMI - ENT ENT exam: Present: mucous membranes moist - Neck Neck exam: Present: normal inspection - Respiratory Respiratory exam: Present: normal lung sounds bilaterally. Absent: respiratory distress - Cardiovascular Cardiovascular Exam: Present: regular rate, normal rhythm - GI/Abdominal GI/Abdominal exam: Present: soft, distended (Mild distention noted). Absent: tenderness - Extremities Exam Extremities exam: Present: normal inspection. Absent: pedal edema, calf tenderness - Neurological Exam Neurological exam: Present: alert, oriented X3 - Psychiatric Psychiatric exam: Present: normal affect, normal mood - Skin Skin exam: Present: warm, dry, intact, normal color ED Course Vital Signs 10/28/20 10/28/20 13:00 14:31 Temperature 98.2 F Pulse Rate 77 83 Respiratory 23 15 Rate Blood Pressure 156/77 160/77 O2 Sat by Pulse 99 97 Oximetry ED Medical Decision Making - Lab Data Result diagrams: 10/28/20 13:33 10/28/20 13:33 - EKG Data -: EKG Interpreted by Tn EKG shows normal: sinus rhythm, axis, intervals, QRS complexes Rate: normal - EKG Data Interpretation: other (old inferior infarct; T wave inversions I, aVL) - Radiology Data Radiology results: report reviewed, image reviewed - Medical Decision Making 60-year-old female with end-stage renal disease and ascites presents to ED with shortness of breath. Patient reports she has been feeling short of breath due to some abdominal distention since she was unable to have her scheduled paracentesis 3 days ago. Patient has some mild abdominal distention on exam. Abdomen is nontender. Chest x-ray shows small to moderate right pleural effusion, however, patient is in no respiratory distress, O2 sats are normal. Patient reports that she has a dialysis appointment tomorrow and says she usually feels much better after dialysis. Patient does not meet criteria for emergent dialysis at this time as her O2 sats are normal, she is in no respiratory distress, and her potassium is normal. Patient does have elevated troponin, however, patient has chronically elevated troponin ranging from 0.16- 0.18. Her level today is within her baseline troponin level. This is likely secondary to her renal failure. EKG shows no ST changes. Patient has no chest pain. Patient is comfortable with discharge at this time, in fact, she is asking to go home. Patient advised not to miss dialysis tomorrow. Advised patient to contact her PCP to reschedule her paracentesis. Return precautions given. - Differential Diagnosis Pulmonary edema, ACS, ascites Critical care attestation.: If time is entered above; I have spent that time in minutes in the direct care of this critically ill patient, excluding procedure time. ED Disposition Clinical Impression: Dyspnea, End stage renal disease on dialysis Disposition: TO HOME OR SELFCARE Is pt being admited?: No Condition: Stable Referrals: REGGIE MOJICA MD [Primary Care Provider] - 3-5 Days
--- NOTE | 2020-10-28 13:48 | XRay Report ---
CHEST 1 VIEW 10/28/2020 1:12 PM INDICATION / CLINICAL INFORMATION: SOB. COMPARISON: One view of the chest from 05/18/2020. FINDINGS: SUPPORT DEVICES: None. HEART / MEDIASTINUM: Stable. LUNGS / PLEURA: Small to moderate right pleural effusion with associated atelectasis. The lungs are o therwise clear. No pneumothorax. ADDITIONAL FINDINGS: No significant additional findings. IMPRESSION: Small to moderate right pleural effusion with associated atelectasis. Signer Name: Kei Cesar MD Signed: 10/28/2020 1:43 PM Workstation Name: [id number]
[2020-10-28 14:07] LABS: Hematocrit 29.3 % (30.3-42.9); Hemoglobin 9.2 gm/dl (10.1-14.3); Mean Corpuscular HGB Conc 31 % (30-34); Mean Corpuscular Volume 83 fl (79-97); Red Blood Count 3.55 M/mm3 (3.65-5.03)
[2020-10-28 14:08] LABS: Platelet Count 90 K/mm3 (140-440); Red Cell Distribution Width 21.6 % (13.2-15.2)
[2020-10-28 14:10] LABS: INR 1.24 (0.87-1.13)
[2020-10-28 14:11] LABS: Partial Thromboplastin Time 32.6 Sec. (24.2-36.6)
[2020-10-28 14:23] LABS: Calcium 8.7 mg/dL (8.4-10.2)
[2020-10-28 14:27] LABS: Albumin 3.8 g/dL (3.9-5); Bilirubin,Direct 0.3 mg/dL (0-0.2)
[2020-10-28 14:52] LABS: Alanine Aminotransferase < 5 units/L (7-56)
[2020-10-28 15:21] VITALS: BP 153/73
[2020-10-28 15:23] LABS: Chol/HDL Ratio 2.58 %; HDL Cholesterol 43 mg/dL (40-59); LDL Cholesterol,Direct 63 mg/dL (50-130)
[2020-10-28 17:34] LABS: Anisocytosis 1+; Hypochromasia 1+; Total Cells Counted 100
[2020-10-28 17:36] LABS: Large Platelets Rare
[2020-10-28 17:37] LABS: Ovalocytes Few; Tear Drop Cells Rare
[2020-10-28 17:38] LABS: Helmet Cells Rare; Platelet Estimate Consistent w Auto
--- NOTE | 2020-10-29 10:36 | Electrocardiograph Report ---
[facility] Test Date: 2020-10-28 Test Time: 14:56:54 Pat Name: JOSE MCNAIR Department: Room: Gender: F Supervisor Pastry: GERMÁN : 1960 Requested By: CURTIS LUDWIG Order Number: [id number] Reading MD: Ariel Cisse Measurements Intervals [place] Rate: 86 P: 32 GA: 203 QRS: -13 QRSD: 104 T: 121 QT: 398 QTc: 476 Interpretive Statements Sinus rhythm Inferior infarct, old Nonspecific T abnormalities, lateral leads No previous ECG available for comparison Electronically Signed On 10-29-2020 7:35:44 PDT by Ariel Cisse
== END 2020-10-28 15:21 | disposition home or self-care (01) ==
LOC: ED 12:38
DX: E11.22 Type 2 diabetes mellitus with diabetic chronic kidney disease (principal); I13.2 Hypertensive heart and chronic kidney disease with heart failure and with stage 5 chronic kidney disease, or end stage renal disease; I50.9 Heart failure, unspecified; N18.6 End stage renal disease; R06.00 Dyspnea, unspecified; I25.2 Old myocardial infarction; R56.9 Unspecified convulsions; M19.91 Primary osteoarthritis, unspecified site; J44.9 Chronic obstructive pulmonary disease, unspecified; Z99.2 Dependence on renal dialysis; Z98.890 Other specified postprocedural states; Z87.891 Personal history of nicotine dependence; Z79.2 Long term (current) use of antibiotics; Z79.899 Other long term (current) drug therapy
CPT/HCPCS: 36415; 71045; 80048; 80061; 80076; 83880; 84484; 85007; 85025; 85610; 85730; 93005

== ENCOUNTER 2021-01-05 20:40 | Inpatient (IN) | payer MEDICARE ==
--- NOTE | 2021-01-05 21:02 | Emergency Department Report ---
HPI - General Time Seen by Provider: 01/05/21 20:52 - HPI HPI: This is a 60-year-old -Luxembourger female who presents to the emergency department via EMS from home with a complaint of shortness of breath, generalized weakness, lower extremity and abdominal swelling, after missing her last 3 dialysis appointments. The patient has a past medical history of end- stage renal disease on hemodialysis on Saturday//Saturday, COPD on 2 L oxygen via nasal cannula, CHF, hypertension, seizures, CAD, peripheral neuropathy. Patient says that she was discharged from [facility] a few weeks ago and since discharge she has been feeling too weak to move and therefore missed dialysis. She denies any fever, chest pain, nausea, vomiting. Her odd ticket clerk is Dr Batista. ED Past Medical Hx - Past Medical History Hx Hypertension: Yes Hx CVA: Yes (x4, 6TIAs) Hx Heart Attack/AMI: Yes Hx Congestive Heart Failure: Yes Hx Diabetes: Yes Hx Liver Disease: No Hx Renal Disease: Yes (dialysis 2015, , and Sat) Hx Sickle Cell Disease: No Hx Arthritis: Yes Hx Headaches / Migraines: Yes Hx Seizures: Yes Hx Asthma: Yes Hx COPD: Yes Hx HIV: No - Surgical History Hx Coronary Stent: Yes Hx Pacemaker: No Hx Internal Defibrillator: No Hx Breast Surgery: Yes (breast reduction 1979) Additional Surgical History: breast reduction 1979, av fistula left arm - Social History Smoking Status: Former Smoker - Medications Home Medications: Home Medications Medication Instructions Recorded Confirmed Last Taken Type Fluticasone [Flonase] 1 spray NS QDAY PRN 12/01/19 05/17/20 01/18/20 History Calcium Carbonate [Tums 500MG CHEW] 750 mg PO QHS #30 02/02/20 05/17/20 02/20/20 Rx Gabapentin [Neurontin] 800 mg PO TID #90 tab 02/02/20 05/17/20 02/20/20 Rx Mirtazapine [Remeron 15mg TAB] 15 mg PO QHS #30 tab 02/02/20 05/17/20 02/20/20 Rx Acetaminophen [Acetaminophen TAB] 650 mg PO Q4H PRN tablet 04/21/20 05/17/20 Unknown Rx Aspirin EC [Halfprin EC] 81 mg PO QDAY #30 tablet 04/21/20 05/17/20 Unknown Rx AtorvaSTATin [Lipitor] 40 mg PO QHS #30 tablet 04/21/20 05/17/20 Unknown Rx Calcium Acetate [Phoslo] 2,001 mg PO TIDWM #30 capsule 04/21/20 05/17/20 Unknown Rx Clopidogrel [Plavix] 75 mg PO QDAY #30 tab 04/21/20 05/17/20 Unknown Rx Epoetin Hiro 20,000 Unit [Procrit] 20,000 unit IV GREY vial 04/21/20 05/17/20 Unknown Rx Loperamide [Imodium] 2 mg PO Q4HR PRN #24 capsule 04/21/20 05/17/20 Unknown Rx Losartan [Cozaar] 50 mg PO QDAY #30 tablet 04/21/20 05/17/20 Unknown Rx Metoprolol [Lopressor TAB] 12.5 mg PO BID #60 tablet 04/21/20 05/17/20 Unknown Rx Torsemide [Demadex] 20 mg PO QDAY tablet 04/21/20 05/17/20 Unknown Rx calcitrioL [Rocaltrol] 1 mcg PO QDAY #30 cap 04/21/20 05/17/20 Unknown Rx hydrALAZINE [Apresoline TAB] 50 mg PO BID #120 tablet 04/21/20 05/17/20 Unknown Rx levETIRAcetam [Keppra TAB] 500 mg PO BID #60 tablet 04/21/20 05/17/20 Unknown Rx Albuterol Sulfate [Proair 90 mcg IH Q6HR PRN 05/17/20 05/17/20 Unknown History Digihaler] Azithromycin [Zithromax Z-TIMOTHY] 250 mg PO DAILY #6 tab 05/18/20 Unknown Rx Ondansetron [Zofran ODT TAB] 8 mg PO Q8HR PRN #10 05/18/20 Unknown Rx oxyCODONE /ACETAMINOPHEN [Percocet 1 tab PO Q6H PRN #10 tablet 05/18/20 Unknown Rx 5/325 mg] ED Review of Systems ROS: Stated complaint: SOB/MISS DIALYSIS Other details as noted in HPI Comment: All other systems reviewed and negative Constitutional: denies: chills, fever Eyes: denies: eye pain, vision change ENT: denies: ear pain, throat pain Respiratory: orthopnea, shortness of breath. denies: cough Cardiovascular: denies: chest pain, palpitations Gastrointestinal: abdominal pain. denies: vomiting Genitourinary: denies: dysuria, discharge Musculoskeletal: denies: back pain, arthralgia Skin: denies: rash, lesions Neurological: denies: headache, numbness, paresthesias Physical Exam - Physical Exam Physical Exam: GENERAL: The patient is well-developed well-nourished. HENT: Normocephalic. Atraumatic. Patient has moist mucous membranes. EYES: Extraocular motions are intact. NECK: Supple. Trachea is midline. CHEST/LUNGS: Coarse breaths sounds throughout the chest. There is no respiratory distress noted. HEART/CARDIOVASCULAR: Regular. There is no tachycardia. There is no murmur. ABDOMEN: Abdomen is soft, nontender. Bowel sounds are heard but there also sounds consistent with ascites. Mild abdominal distention. SKIN: Skin is warm and dry. NEURO: The patient is awake, alert, and cooperative. The patient has no focal neurologic deficits. Normal speech. MUSCULOSKELETAL: There is no tenderness or deformity. There is no limitation range of motion. ED Course - Consultations Consultation #1: 01/05/21 21:56 I spoke to the patient's odd ticket clerk, Dr. Batista, who would like the patient admitted to the hospitalist service and they will provide dialysis tomorrow. ED Medical Decision Making - Lab Data Result diagrams: 01/05/21 21:12 01/05/21 21:12 Lab Results 01/05/21 01/05/21 Range/Units 21:12 21:12 WBC 1.9 L* (4.5-11.0) K/mm3 RBC 2.69 L (3.65-5.03) M/mm3 Hgb 7.6 L (10.1-14.3) gm/dl Hct 23.3 L (30.3-42.9) % MCV 87 (79-97) fl MCH 28 (28-32) pg MCHC 32 (30-34) % RDW 21.3 H (13.2-15.2) % Plt Count 81 L (140-440) K/mm3 Add Manual Diff Complete Total Counted 100 Seg Neuts % (Manual) 63.0 (40.0-70.0) % Lymphocytes % (Manual) 21.0 (13.4-35.0) % Monocytes % (Manual) 10.0 H (0.0-7.3) % Eosinophils % (Manual) 4.0 (0.0-4.3) % Basophils % (Manual) 2.0 H (0.0-1.8) % Nucleated RBC % Not Reportable Seg Neutrophils # Man 1.2 L (1.8-7.7) K/mm3 Band Neutrophils # 0.0 K/mm3 Lymphocytes # (Manual) 0.4 L (1.2-5.4) K/mm3 Abs React Lymphs (Man) 0.0 K/mm3 Monocytes # (Manual) 0.2 (0.0-0.8) K/mm3 Eosinophils # (Manual) 0.1 (0.0-0.4) K/mm3 Basophils # (Manual) 0.0 (0.0-0.1) K/mm3 Metamyelocytes # 0.0 K/mm3 Myelocytes # 0.0 K/mm3 Promyelocytes # 0.0 K/mm3 Blast Cells # 0.0 K/mm3 WBC Morphology Not Reportable Hypersegmented Neuts Not Reportable Hyposegmented Neuts Not Reportable Hypogranular Neuts Not Reportable Smudge Cells Not Reportable Toxic Granulation Not Reportable Toxic Vacuolation Not Reportable Dohle Bodies Not Reportable Pelger-Huet Anomaly Not Reportable Graciela Rods Not Reportable Platelet Estimate Not Reportable Clumped Platelets Not Reportable Plt Clumps, EDTA Not Reportable Large Platelets Rare Giant Platelets Not Reportable Platelet Satelliting Not Reportable Plt Morphology Comment Not Reportable RBC Morphology Not Reportable Dimorphic RBCs Not Reportable Polychromasia Not Reportable Hypochromasia 1+ Poikilocytosis Not Reportable Anisocytosis 1+ Microcytosis Rare Macrocytosis Not Reportable Spherocytes Not Reportable Pappenheimer Bodies Not Reportable Sickle Cells Not Reportable Target Cells Not Reportable Tear Drop Cells Rare Ovalocytes Few Helmet Cells Not Reportable [place] Bodies Not Reportable [place] Rings Not Reportable [place] Cells Not Reportable Bite Cells Not Reportable Crenated Cell Not Reportable Elliptocytes Not Reportable Acanthocytes (Spur) Not Reportable Rouleaux Not Reportable Hemoglobin C Crystals Not Reportable Schistocytes Not Reportable Malaria parasites Not Reportable Enrrique Bodies Not Reportable Hem Pathologist Commnt No Sodium 137 (137-145) mmol/L Potassium 4.2 (3.6-5.0) mmol/L Chloride 96.3 L (98-107) mmol/L Carbon Dioxide 23 (22-30) mmol/L Anion Gap 22 mmol/L BUN 51 H (7-17) mg/dL Creatinine 13.3 H (0.6-1.2) mg/dL Estimated GFR 3 ml/min BUN/Creatinine Ratio 4 % Glucose 80 (65-100) mg/dL Calcium 7.9 L (8.4-10.2) mg/dL Magnesium 2.00 (1.7-2.3) mg/dL Total Bilirubin 0.40 (0.1-1.2) mg/dL AST 10 (5-40) units/L ALT < 5 L (7-56) units/L Alkaline Phosphatase 96 (35-129) units/L Total Protein 7.1 (6.3-8.2) g/dL Albumin 3.2 L (3.9-5) g/dL Albumin/Globulin Ratio 0.8 % - EKG Data -: EKG Interpreted by Me EKG shows normal: sinus rhythm, axis (Left axis deviation), intervals (Slightly prolonged QTC), QRS complexes (Q waves to the inferior and anterior leads), ST-T waves (Some flattening of the T waves) Rate: normal - EKG Data When compared to previous EKG there are: no significant change Interpretation: unchanged when compared t (10/28/20) - Radiology Data Radiology results: image reviewed interpreted by me: Chest x-ray shows some pulmonary vascular congestion and bilateral pleural effusions. No pneumothorax. - Medical Decision Making This patient presents to the emergency department with a complaint of some shortness of breath and generalized weakness after missing her last 3 dialysis sessions. Chest x-ray shows pulmonary vascular congestion and bilateral pleural effusions. On examination the patient also has coarse breath sounds, as well as some sounds of fluid within the abdomen most likely consistent with some ascites. She does not appear in any respiratory or acute distress. Patient's labs shows leukopenia, thrombocytopenia, and renal insufficiency consistent with her end-stage renal disease on hemodialysis. No hyperkalemia at this time. Nephrology was contacted and consulted. She does not require emergent dialysis this evening but will get dialysis tomorrow. Patient was accepted for admission by the hospitalist, Dr. Mcgrath. Critical Care Time: No Critical care attestation.: If time is entered above; I have spent that time in minutes in the direct care of this critically ill patient, excluding procedure time. ED Disposition Clinical Impression: ESRD needing dialysis, Pancytopenia, Pleural effusion Anemia in CKD (chronic kidney disease) Qualifiers: Chronic kidney disease stage: on chronic dialysis Qualified Code(s): N18.6 - End stage renal disease; D63.1 - Anemia in chronic kidney disease; Z99.2 - Dependence on renal dialysis Volume overload Qualifiers: Hypervolemia type: unspecified Qualified Code(s): E87.70 - Fluid overload, unspecified Hypertension Qualifiers: Hypertension type: renovascular hypertension Qualified Code(s): I15.0 - Renovascular hypertension Disposition: -09 OP ADMIT IP TO THIS HOSP Is pt being admited?: Yes Condition: Fair Time of Disposition: 22:15
[2021-01-05 21:39] LABS: Hematocrit 23.3 % (30.3-42.9); Hemoglobin 7.6 gm/dl (10.1-14.3); Mean Corpuscular HGB Conc 32 % (30-34); Mean Corpuscular Volume 87 fl (79-97); Red Blood Count 2.69 M/mm3 (3.65-5.03)
[2021-01-05 21:44] LABS: Albumin 3.2 g/dL (3.9-5); BUN/Creatinine Ratio 4; Blood Urea Nitrogen 51 mg/dL (7-17); Calcium 7.9 mg/dL (8.4-10.2); Hemolysis Index 3
[2021-01-05 21:45] LABS: Alanine Aminotransferase < 5 units/L (7-56)
--- NOTE | 2021-01-05 21:46 | XRay Report ---
CHEST / ABDOMEN 3 VIEW INDICATION / CLINICAL INFORMATION: SOB, Abd Pain. COMPARISON: Prior chest radiograph 10/28/2020. FINDINGS: SUPPORT DEVICES: None. HEART / MEDIASTINUM: Stable. LUNGS / PLEURA: Minimally improved right lung base pleural parenchymal opacification. New small left pleural effusion. No confluent infiltrates. No pneumothorax. Linear line over the right upper hemitho rax felt to represent overlying skin fold. TUBES / LINES: None. BOWEL GAS PATTERN: Nonobstructive bowel gas pattern. There is a paucity of bowel gas. FREE AIR / EXTRALUMINAL GAS: None seen. ADDITIONAL FINDINGS: Vascular calcifications are noted over the abdomen and pelvis. Moderate/severe l umbar spondylosis. IMPRESSION: 1. Persistent moderate-sized right-sided pleural effusion with associated compressive atelectasis, mi nimally improved since prior exam. 2. New small left pleural effusion and associated compressive atelectasis. 3. Nonobstructive bowel gas pattern. Signer Name: Ld Marquis MD Signed: 01/05/2021 9:41 PM Workstation Name: [id number]
[2021-01-05 22:04] LABS: Platelet Count 81 K/mm3 (140-440); Red Cell Distribution Width 21.3 % (13.2-15.2)
[2021-01-05] MEDS ORDERED: ACETAMINOPHEN 325 MG TAB PO PRN (22:28)
[2021-01-05] MEDS ORDERED: ONDANSETRON 4 MG/2 ML INJ IV PRN (22:28)
[2021-01-05] MEDS ORDERED: hydrALAZINE 20 MG/1 ML INJ IV PRN (22:31)
[2021-01-05] MEDS ORDERED: FLUTICASONE PROPIONATE NASAL SPRAY 16 GM NS PRN (22:31)
[2021-01-05] MEDS ORDERED: NON-FORMULARY EACH (Albuterol Sulfate [Proair Digihaler] 90 MCG Aer.Pw.Bas) IH PRN (22:31)
[2021-01-05] MEDS ORDERED: oxyCODONE /ACETAMINOPHEN 5-325MG TAB PO PRN (22:31)
--- NOTE | 2021-01-05 22:38 | History and Physical Report ---
History of Present Illness Date of examination: 01/05/21 Date of admission: 01/05/21 Chief complaint: Shortness of breath Generalized weakness Lower extremity swelling History of present illness: 60-year-old -[place] female with past medical history of hypertension, end-stage renal disease on dialysis diabetes congestive heart failure seizures, CAD, peripheral neuropathy CVA was brought to the emergency department via EMS from home with a complaint of shortness of breath, generalized weakness, lower extremity and abdominal swelling, after missing her last 3 dialysis appointments. Patient says that she was discharged from [facility] a few weeks ago and since discharge she has been feeling too weak to move and therefore missed dialysis. She denies any fever, chest pain, nausea, vomiting. Her filling machine tender is Dr Batista. \ The emergency room patient is found to have BUN of 51 and creatinine 13.3. Patient WBC is 1.9, hemoglobin 7.6 Past History Past Medical History: arthritis, COPD, diabetes, ESRD, heart failure, hypertension, renal failure, seizures, stroke, other (Asthma) Medications and Allergies Allergies Allergy/AdvReac Type Severity Reaction Status Date / Time No Known Allergies Allergy Verified 01/19/20 05:43 Home Medications Medication Instructions Recorded Confirmed Last Taken Type Fluticasone [Flonase] 1 spray NS QDAY PRN 12/01/19 05/17/20 01/18/20 History Calcium Carbonate [Tums 500MG CHEW] 750 mg PO QHS #30 02/02/20 05/17/20 02/20/20 Rx Gabapentin [Neurontin] 800 mg PO TID #90 tab 02/02/20 05/17/20 02/20/20 Rx Mirtazapine [Remeron 15mg TAB] 15 mg PO QHS #30 tab 02/02/20 05/17/20 02/20/20 Rx Acetaminophen [Acetaminophen TAB] 650 mg PO Q4H PRN tablet 04/21/20 05/17/20 Unknown Rx Aspirin EC [Halfprin EC] 81 mg PO QDAY #30 tablet 04/21/20 05/17/20 Unknown Rx AtorvaSTATin [Lipitor] 40 mg PO QHS #30 tablet 04/21/20 05/17/20 Unknown Rx Calcium Acetate [Phoslo] 2,001 mg PO TIDWM #30 capsule 04/21/20 05/17/20 Unknown Rx Clopidogrel [Plavix] 75 mg PO QDAY #30 tab 04/21/20 05/17/20 Unknown Rx Epoetin Malaika 20,000 Unit [Procrit] 20,000 unit IV GREY vial 04/21/20 05/17/20 Unknown Rx Loperamide [Imodium] 2 mg PO Q4HR PRN #24 capsule 04/21/20 05/17/20 Unknown Rx Losartan [Cozaar] 50 mg PO QDAY #30 tablet 04/21/20 05/17/20 Unknown Rx Metoprolol [Lopressor TAB] 12.5 mg PO BID #60 tablet 04/21/20 05/17/20 Unknown Rx Torsemide [Demadex] 20 mg PO QDAY tablet 04/21/20 05/17/20 Unknown Rx calcitrioL [Rocaltrol] 1 mcg PO QDAY #30 cap 04/21/20 05/17/20 Unknown Rx hydrALAZINE [Apresoline TAB] 50 mg PO BID #120 tablet 04/21/20 05/17/20 Unknown Rx levETIRAcetam [Keppra TAB] 500 mg PO BID #60 tablet 04/21/20 05/17/20 Unknown Rx Albuterol Sulfate [Proair 90 mcg IH Q6HR PRN 05/17/20 05/17/20 Unknown History Digihaler] Azithromycin [Zithromax Z-TIMOTHY] 250 mg PO DAILY #6 tab 05/18/20 Unknown Rx Ondansetron [Zofran ODT TAB] 8 mg PO Q8HR PRN #10 05/18/20 Unknown Rx oxyCODONE /ACETAMINOPHEN [Percocet 1 tab PO Q6H PRN #10 tablet 05/18/20 Unknown Rx 5/325 mg] Active Meds: Active Medications Acetaminophen (Acetaminophen 325 Mg Tab) 650 mg PO Q4H PRN PRN Reason: Pain MILD(1-3)/Fever >100.5/MCDANIEL Aspirin (Aspirin Ec 81 Mg Tab) 81 mg PO QDAY LENCHO Atorvastatin Calcium (Atorvastatin 40 Mg Tab) 40 mg PO QHS LENCHO Azithromycin (Azithromycin 250 Mg Tab) 250 mg PO DAILY LENCHO; Protocol Calcitriol (Calcitriol 0.5 Mcg Cap) 1 mcg PO QDAY [facility] Calcium Acetate (Calcium Acetate 667 Mg Cap) 2,001 mg PO TIDWM [facility] Calcium Carbonate/Glycine (Calcium Carbonate 500 Mg Tab Chew) 750 mg PO QHS LNECHO Clopidogrel Bisulfate (Clopidogrel 75 Mg Tab) 75 mg PO QDAY LENCHO Famotidine (Famotidine 20 Mg Tab) 20 mg PO BID [facility] Heparin Sodium (Porcine) (Heparin 5,000 Unit/1 Ml Vial) 5,000 unit SUB-Q Q8HR LENCHO Hydralazine HCl (Hydralazine 20 Mg/1 Ml Inj) 10 mg IV Q6H PRN PRN Reason: htn Miscellaneous Medication (Albuterol Sulfate [Proair Digihaler]) 90 mcg IH Q6HR PRN PRN Reason: Congestion Miscellaneous Medication (Epoetin Malaika 20,000 Unit [Procrit]) 20,000 unit IV GREY LENCHO Ondansetron HCl (Ondansetron 4 Mg/2 Ml Inj) 4 mg IV Q8H PRN PRN Reason: Nausea And Vomiting Sodium Chloride (Sodium Chloride 0.9% 10 Ml Flush Syringe) 10 ml IV BID LENCHO Sodium Chloride (Sodium Chloride 0.9% 10 Ml Flush Syringe) 10 ml IV PRN PRN PRN Reason: LINE FLUSH Review of Systems Cardiovascular: edema, shortness of breath, dyspnea on exertion Respiratory: shortness of breath, dyspnea on exertion Gastrointestinal: other (Abdominal swelling) Exam - Constitutional Vitals: Temp Pulse Resp BP Pulse Ox 98.1 F 84 20 153/73 98 01/05/21 20:58 01/05/21 21:48 01/05/21 21:46 01/05/21 21:46 01/05/21 21:46 General appearance: Present: no acute distress, well-nourished - EENT Eyes: Present: PERRL ENT: hearing intact, clear oral mucosa - Neck Neck: Present: supple, normal ROM - Respiratory Respiratory effort: normal Respiratory: bilateral: rales - Cardiovascular Heart Sounds: Present: S1 & S2. Absent: rub, click - Extremities Extremities: pulses symmetrical, No edema Extremity abnormal: edema Peripheral Pulses: within normal limits - Abdominal General gastrointestinal: Present: soft, non-tender, non-distended, normal bowel sounds Female genitourinary: Present: normal - Integumentary Integumentary: Present: clear, warm, dry - Musculoskeletal Musculoskeletal: gait normal, strength equal bilaterally - Psychiatric Psychiatric: appropriate mood/affect, intact judgment & insight - Neurologic Neurologic: CNII-XII intact, moves all extremities Results - Labs CBC & Chem 7: 01/05/21 21:12 01/05/21 21:12 Labs: Laboratory Last Values WBC 1.9 K/mm3 (4.5-11.0) L* 01/05/21 21:12 RBC 2.69 M/mm3 (3.65-5.03) L 01/05/21 21:12 Hgb 7.6 gm/dl (10.1-14.3) L 01/05/21 21:12 Hct 23.3 % (30.3-42.9) L 01/05/21 21:12 MCV 87 fl (79-97) 01/05/21 21:12 MCH 28 pg (28-32) 01/05/21 21:12 MCHC 32 % (30-34) 01/05/21 21:12 RDW 21.3 % (13.2-15.2) H 01/05/21 21:12 Plt Count 81 K/mm3 (140-440) L 01/05/21 21:12 Sodium 137 mmol/L (137-145) 01/05/21 21:12 Potassium 4.2 mmol/L (3.6-5.0) 01/05/21 21:12 Chloride 96.3 mmol/L (98-107) L 01/05/21 21:12 Carbon Dioxide 23 mmol/L (22-30) 01/05/21 21:12 Anion Gap 22 mmol/L 01/05/21 21:12 BUN 51 mg/dL (7-17) H 01/05/21 21:12 Creatinine 13.3 mg/dL (0.6-1.2) H 01/05/21 21:12 Estimated GFR 3 ml/min 01/05/21 21:12 BUN/Creatinine Ratio 4 % 01/05/21 21:12 Glucose 80 mg/dL (65-100) 01/05/21 21:12 Calcium 7.9 mg/dL (8.4-10.2) L 01/05/21 21:12 Magnesium 2.00 mg/dL (1.7-2.3) 01/05/21 21:12 Total Bilirubin 0.40 mg/dL (0.1-1.2) 01/05/21 21:12 AST 10 units/L (5-40) 01/05/21 21:12 ALT < 5 units/L (7-56) L 01/05/21 21:12 Alkaline Phosphatase 96 units/L (35-129) 01/05/21 21:12 Total Protein 7.1 g/dL (6.3-8.2) 01/05/21 21:12 Albumin 3.2 g/dL (3.9-5) L 01/05/21 21:12 Albumin/Globulin Ratio 0.8 % 01/05/21 21:12 - Imaging and Cardiology Chest x-ray: report reviewed Abdominal x-ray: report reviewed Assessment and Plan VTE prophylaxis?: Chemical Plan of care discussed with patient/family: Yes - Patient Problems (1) ESRD needing dialysis Current Visit: Yes Status: Chronic Plan to address problem: Admit the patient to the medical telemetry. Put the patient on renal diet. Oxygen per nasal cannula 3 to per minute. DuoNeb by nebulizer every 4 hours as needed. Will consult nephrology for dialysis in the morning. Recheck BMP in the morning (2) Volume overload Current Visit: Yes Status: Acute Qualifiers: Plan to address problem: Oxygen per nasal cannula 3 to per minute. DuoNeb by nebulizer every 4 hours as needed. Demadex 20 mg p.o. daily consult nephrology for dialysis in the morning. Recheck BMP in the morning (3) Pleural effusion Current Visit: Yes Status: Acute Plan to address problem: Demadex 20 mg p.o. daily consult nephrology for dialysis in the morning. Rec heck BMP in the morning. If needed will consult pulmonary in the morning (4) Pancytopenia Current Visit: Yes Status: Acute Plan to address problem: Patient is pancytopenic. Which is chronic. We will monitor the patient closely. Recheck CBC in the morning (5) Abdominal pain Current Visit: No Status: Acute Qualifiers: Abdominal location: generalized Qualified Code(s): R10.84 - Generalized abdominal pain Plan to address problem: Tylenol 650 mg p.o. every 6 as needed. Pepcid 20 mg p.o. twice daily. Oxycodone 1 tablet p.o. every 6 hours as needed (6) SOB (shortness of breath) Current Visit: No Status: Acute Plan to address problem: Oxygen per nasal cannula 3 to per minute. DuoNeb by nebulizer every 4 hours as needed. Demadex 20 mg p.o. daily consult nephrology for dialysis in the morning. (7) CHF (congestive heart failure) Current Visit: No Status: Acute Plan to address problem: Demadex 20 mg p.o. daily. Fluid restriction consult nephrology for dialysis in the morning. Recheck BMP in the morning (8) Anemia in chronic kidney disease Current Visit: Yes Status: Chronic Qualifiers: Plan to address problem: Anemia most likely from the chronic kidney disease. Epoetin malaika 20,000 unit IV with dialysis. Recheck CBC in the morning (9) CVA (cerebral vascular accident) Current Visit: Yes Status: Acute Plan to address problem: Stable. Aspirin 81 mg p.o. daily, Plavix 75 mg p.o. daily. Lipitor 40 mg p.o. daily (10) Hypertension Current Visit: Yes Status: Chronic Qualifiers: Plan to address problem: Hydralazine 50 mg p.o. twice daily, hydralazine 10 mg IV every 6 hours as needed. Metoprolol 12.5 mg p.o. twice daily losartan 50 mg p.o. daily. We will monitor the blood pressure closely (11) DVT prophylaxis Current Visit: Yes Status: Acute
[2021-01-05 22:56] LABS: Anisocytosis 1+; Hypochromasia 1+; Large Platelets Rare; Ovalocytes Few; Tear Drop Cells Rare; Total Cells Counted 100
[2021-01-06] MEDS ORDERED: ALBUTEROL 2.5 MG/3 ML NEBU IH PRN (02:00)
[2021-01-06] MEDS ORDERED: ALBUMIN HUMAN 25% (25 GM/100 ML) INJ IV PRN (05:12)
[2021-01-06] MEDS ORDERED: EPOETIN ALFA-EPBX 20,000 UNIT/1 ML VIAL IV PRN (05:12)
[2021-01-06] MEDS ORDERED: SODIUM CHLORIDE 0.9% 100 ML IV PRN (05:12)
[2021-01-06] MEDS: HEPARIN 5,000 UNIT/1 ML VIAL SUB-Q SCH ×3 (05:30→22:03)
--- NOTE | 2021-01-06 06:30 | Consultation ---
History of Present Illness - Reason for Consult Consult date: 01/06/21 end stage renal disease Requesting physician: THEODORA GAITAN - History of Present Illness This is a 60-year-old -[place] female who presents to the emergency department via EMS from home with a complaint of shortness of breath, generalized weakness, lower extremity and abdominal swelling, after missing her last 3 dialysis appointments. The patient has a past medical history of end- stage renal disease on hemodialysis on Saturday//Saturday, COPD on 2 L oxygen via nasal cannula, CHF, hypertension, seizures, CAD, peripheral neuropathy. Patient says that she was discharged from [facility] a few weeks ago and since discharge she has been feeling too weak to move and t herefore missed dialysis. She denies any fever, chest pain, nausea, vomiting. Her peanut vendor is Dr Batista. - Past Medical History Hx Hypertension: Yes Hx CVA: Yes (x4, 6TIAs) Hx Heart Attack/AMI: Yes Hx Congestive Heart Failure: Yes Hx Diabetes: Yes Hx Liver Disease: No Hx Renal Disease: Yes (dialysis 2015, , and Sat) Hx Sickle Cell Disease: No Hx Arthritis: Yes Hx Headaches / Migraines: Yes Hx Seizures: Yes Hx Asthma: Yes Hx COPD: Yes Hx HIV: No - Surgical History Hx Coronary Stent: Yes Hx Pacemaker: No Hx Internal Defibrillator: No Hx Breast Surgery: Yes (breast reduction 1979) Additional Surgical History: breast reduction 1979, av fistula left arm - Social History Smoking Status: Former Smoker ROS: Stated complaint: SOB/MISS DIALYSIS Other details as noted in HPI Comment: All other systems reviewed and negative Constitutional: denies: chills, fever Eyes: denies: eye pain, vision change ENT: denies: ear pain, throat pain Respiratory: orthopnea, shortness of breath. denies: cough Cardiovascular: denies: chest pain, palpitations Gastrointestinal: abdominal pain. denies: vomiting Genitourinary: denies: dysuria, discharge Musculoskeletal: denies: back pain, arthralgia Skin: denies: rash, lesions Neurological: denies: headache, numbness, paresthesias Past History Past Medical History: arthritis, COPD, diabetes, ESRD, heart failure, hypertension, renal failure, seizures, stroke, other (Asthma) Medications and Allergies Allergies Allergy/AdvReac Type Severity Reaction Status Date / Time No Known Allergies Allergy Verified 01/19/20 05:43 Home Medications Medication Instructions Recorded Confirmed Last Taken Type Fluticasone [Flonase] 1 spray NS QDAY PRN 12/01/19 05/17/20 01/18/20 History Calcium Carbonate [Tums 500MG CHEW] 750 mg PO QHS #30 02/02/20 05/17/20 02/20/20 Rx Gabapentin [Neurontin] 800 mg PO TID #90 tab 02/02/20 05/17/20 02/20/20 Rx Mirtazapine [Remeron 15mg TAB] 15 mg PO QHS #30 tab 02/02/20 05/17/20 02/20/20 Rx Acetaminophen [Acetaminophen TAB] 650 mg PO Q4H PRN tablet 04/21/20 05/17/20 Unknown Rx Aspirin EC [Halfprin EC] 81 mg PO QDAY #30 tablet 04/21/20 05/17/20 Unknown Rx AtorvaSTATin [Lipitor] 40 mg PO QHS #30 tablet 04/21/20 05/17/20 Unknown Rx Calcium Acetate [Phoslo] 2,001 mg PO TIDWM #30 capsule 04/21/20 05/17/20 Unknown Rx Clopidogrel [Plavix] 75 mg PO QDAY #30 tab 04/21/20 05/17/20 Unknown Rx Epoetin Hiro 20,000 Unit [Procrit] 20,000 unit IV GREY vial 04/21/20 05/17/20 Unknown Rx Loperamide [Imodium] 2 mg PO Q4HR PRN #24 capsule 04/21/20 05/17/20 Unknown Rx Losartan [Cozaar] 50 mg PO QDAY #30 tablet 04/21/20 05/17/20 Unknown Rx Metoprolol [Lopressor TAB] 12.5 mg PO BID #60 tablet 04/21/20 05/17/20 Unknown Rx Torsemide [Demadex] 20 mg PO QDAY tablet 04/21/20 05/17/20 Unknown Rx calcitrioL [Rocaltrol] 1 mcg PO QDAY #30 cap 04/21/20 05/17/20 Unknown Rx hydrALAZINE [Apresoline TAB] 50 mg PO BID #120 tablet 04/21/20 05/17/20 Unknown Rx levETIRAcetam [Keppra TAB] 500 mg PO BID #60 tablet 04/21/20 05/17/20 Unknown Rx Albuterol Sulfate [Proair 90 mcg IH Q6HR PRN 05/17/20 05/17/20 Unknown History Digihaler] Azithromycin [Zithromax Z-TIMOTHY] 250 mg PO DAILY #6 tab 05/18/20 Unknown Rx Ondansetron [Zofran ODT TAB] 8 mg PO Q8HR PRN #10 05/18/20 Unknown Rx oxyCODONE /ACETAMINOPHEN [Percocet 1 tab PO Q6H PRN #10 tablet 05/18/20 Unknown Rx 5/325 mg] Active Meds: Active Medications Acetaminophen (Acetaminophen 325 Mg Tab) 650 mg PO Q4H PRN PRN Reason: Pain MILD(1-3)/Fever >100.5/MCDANIEL Albumin Human (Albumin Human 25% (25 Gm/100 Ml) Inj) 25 gm IV GREY PRN PRN Reason: Hypotension Albuterol (Albuterol 2.5 Mg/3 Ml Nebu) 2.5 mg IH Q6HRT PRN PRN Reason: Shortness Of Breath Aspirin (Aspirin Ec 81 Mg Tab) 81 mg PO QDAY [facility] Atorvastatin Calcium (Atorvastatin 40 Mg Tab) 40 mg PO QHS [facility] Azithromycin (Azithromycin 250 Mg Tab) 250 mg PO DAILY LENCHO; Protocol Calcitriol (Calcitriol 0.5 Mcg Cap) 1 mcg PO QDAY [facility] Calcium Acetate (Calcium Acetate 667 Mg Cap) 2,001 mg PO TIDWM [facility] Calcium Carbonate/Glycine (Calcium Carbonate 500 Mg Tab Chew) 750 mg PO QHS [facility] Clopidogrel Bisulfate (Clopidogrel 75 Mg Tab) 75 mg PO QDAY [facility] Famotidine (Famotidine 20 Mg Tab) 20 mg PO QAM [facility] Fluticasone Propionate (Fluticasone Propionate Nasal [place] 16 Gm) 50 mcg NS QDAY PRN PRN Reason: Nasal Congestion Gabapentin (Gabapentin 400 Mg Cap) 800 mg PO TID [facility] Heparin Sodium (Porcine) (Heparin 5,000 Unit/1 Ml Vial) 5,000 unit SUB-Q Q8HR [facility] Last Admin: 01/06/21 05:30 Dose: 5,000 unit Documented by: Hydralazine HCl (Hydralazine 20 Mg/1 Ml Inj) 10 mg IV Q6H PRN PRN Reason: htn Hydralazine HCl (Hydralazine 25 Mg Tab) 50 mg PO BID [facility] Sodium Chloride (Nacl 0.9%) 100 mls @ 999 mls/hr IV GREY PRN PRN Reason: Hypotension Levetiracetam (Levetiracetam 500 Mg Tab) 500 mg PO BID [facility] Loperamide HCl (Loperamide 2 Mg Cap) 2 mg PO Q4H PRN PRN Reason: Diarrhea Losartan Potassium (Losartan 50 Mg Tab) 50 mg PO QDAY [facility] Metoprolol Tartrate (Metoprolol Tartrate 25 Mg Tab) 12.5 mg PO BID@0800,1700 [facility] Mirtazapine (Mirtazapine 15 Mg Tab) 15 mg PO QHS [facility] Ondansetron HCl (Ondansetron 4 Mg/2 Ml Inj) 4 mg IV Q8H PRN PRN Reason: Nausea And Vomiting Last Admin: 01/06/21 05:29 Dose: 4 mg Documented by: Oxycodone/Acetaminophen (Oxycodone /Acetaminophen 5-325mg Tab) 1 tab PO Q6H PRN PRN Reason: Pain, Moderate (4-6) Sodium Chloride (Sodium Chloride 0.9% 10 Ml Flush Syringe) 10 ml IV BID LENCHO Sodium Chloride (Sodium Chloride 0.9% 10 Ml Flush Syringe) 10 ml IV PRN PRN PRN Reason: LINE FLUSH Torsemide (Torsemide 10 Mg Tab) 20 mg PO QDAY [facility] Exam - Vital Signs Vital signs: Vital Signs Temp Pulse Resp BP Pulse Ox 98.1 F 88 18 159/96 97 01/05/21 20:58 01/05/21 20:58 01/05/21 20:58 01/05/21 20:58 01/05/21 20:58 - Physical Exam Narrative exam: GENERAL: The patient is well-developed well-nourished. HENT: Normocephalic. Atraumatic. Patient has moist mucous membranes. EYES: Extraocular motions are intact. NECK: Supple. Trachea is midline. CHEST/LUNGS: Coarse breaths sounds throughout the chest. There is no respiratory distress noted. HEART/CARDIOVASCULAR: Regular. There is no tachycardia. There is no murmur. ABDOMEN: Abdomen is soft, nontender. Bowel sounds are heard but there also sounds consistent with ascites. Mild abdominal distention. SKIN: Skin is warm and dry. NEURO: The patient is awake, alert, and cooperative. The patient has no focal neurologic deficits. Normal speech. MUSCULOSKELETAL: There is no tenderness or deformity. There is no limitation range of motion. Results - Lab Results 01/05/21 21:12 01/05/21 21:12 Most recent lab results Calcium 7.9 mg/dL (8.4-10.2) L 01/05/21 21:12 Magnesium 2.00 mg/dL (1.7-2.3) 01/05/21 21:12 Assessment and Plan Impression: * End stage renal disease * Anemia secondary to ESRD * htn * shortness of breath * Secondary hyperparathyroidism * Medical noncompliance Plan: * Continue hemodialysis today and q TTHST * stress compliance with medical therapy * UF as tolerated * Epogen TIW prn * neurontin dose is too high, reduced to 100mg tid * Renal diet * ok to dc after hd from renal standpoint
[2021-01-06 06:50] LABS: Hematocrit 21.7 % (30.3-42.9); Hemoglobin 7.1 gm/dl (10.1-14.3); Mean Corpuscular HGB Conc 32 % (30-34); Mean Corpuscular Volume 87 fl (79-97); Red Blood Count 2.51 M/mm3 (3.65-5.03)
[2021-01-06 06:56] LABS: Platelet Count 75 K/mm3 (140-440); Red Cell Distribution Width 21.2 % (13.2-15.2)
[2021-01-06 07:09] LABS: Calcium 7.7 mg/dL (8.4-10.2)
[2021-01-06] MEDS ORDERED: GABAPENTIN 400 MG CAP PO SCH (08:00)
[2021-01-06] MEDS: LOPERAMIDE 2 MG CAP PO PRN ×2 (09:06→12:43)
[2021-01-06] MEDS ORDERED: AZITHROMYCIN 250 MG TAB PO SCH (10:00)
[2021-01-06 10:58] LABS: Hepatitis B Surface Antigen Non-Reactive (Negative); Hepatitis C Virus Antibody Non-Reactive (NonReactive)
[2021-01-06 11:50] LABS: Anisocytosis 1+; Hypochromasia 1+; Platelet Estimate Consistent w Auto; Total Cells Counted 100
[2021-01-06] MEDS: CALCIUM ACETATE 667 MG CAP PO SCH ×3 (12:32→17:06)
[2021-01-06] MEDS: hydrALAZINE 25 MG TAB PO SCH ×2 (12:32→22:17)
[2021-01-06] MEDS: GABAPENTIN 100 MG CAP PO SCH ×3 (12:32→22:02)
[2021-01-06] MEDS: TORSEMIDE 10 MG TAB PO SCH (12:32)
[2021-01-06] MEDS: LOSARTAN 50 MG TAB PO SCH (12:32)
[2021-01-06] MEDS: FAMOTIDINE 20 MG TAB PO SCH (12:33)
[2021-01-06] MEDS: METOPROLOL TARTRATE 25 MG TAB PO SCH ×2 (12:33→17:06)
[2021-01-06] MEDS: ASPIRIN EC 81 MG TAB PO SCH (12:33)
[2021-01-06] MEDS: CLOPIDOGREL 75 MG TAB PO SCH (12:33)
[2021-01-06] MEDS: levETIRAcetam 500 MG TAB PO SCH ×2 (12:33→22:02)
--- NOTE | 2021-01-06 13:37 | Electrocardiograph Report ---
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
[2021-01-06] MEDS: CALCITRIOL 0.5 MCG CAP PO SCH (15:22)
--- NOTE | 2021-01-06 17:00 | Progress Note ---
Assessment and Plan Assessment and plan: --Severe leukopenia; WBC 1.7 Severe pancytopenia, patient is symptomatic Generalized weakness unable to get up Severe cachexia, not feeling well Supportive care Hematology consult[in-house cardiology coordinator not available] closely monitor serial numbers, adjust as needed Neupogen and blood transfusion if needed Neutropenia precautions --ESRD needing dialysis Current Visit: Yes Status: Chronic Hemodialysis per schedule, Nephrology following Patient strongly counseled the importance of wearing to the treatment plan specially dialysis patient verbalized understanding --Volume overload missed dialysis Current Visit: Yes Status: Acute oxygen titrate O2 sats to more than 90% Treat underlying cause dialysis per schedule -- Pleural effusion Current Visit: Yes Status: Acute . Diuretics Demadex 20 mg p.o. daily consult nephrology for dialysis in the morning. Recheck BMP in the morning. If needed will consult pulmonary in the morning -- Abdominal pain Current Visit: No Status: Acute Tylenol 650 mg p.o. every 6 as needed. Pepcid 20 mg p.o. twice daily. Oxycodone 1 tablet p.o. every 6 hours as needed -- SOB (shortness of breath) Current Visit: No Status: Acute Oxygen per nasal cannula 3 to per minute. DuoNeb by nebulizer every 4 hours as needed. Demadex 20 mg p.o. daily consult nephrology for dialysis in the morning. --History of CHF (congestive heart failure) Current Visit: No Status: Acute Demadex 20 mg p.o. daily. Fluid restriction consult nephrology for dialysis in the morning. Recheck BMP in the morning -- Anemia in chronic kidney disease Current Visit: Yes Status: Chronic Closely monitor H&H, transfuse as needed, Epogen during dialysis --History of CVA (cerebral vascular accident) Current Visit: Yes Status: Subacute Plan to address problem: Aspirin Plavix and Lipitor Neuro work-up if needed --Hypertension Current Visit: Yes Status: Chronic Hydralazine 50 mg p.o. twice daily, hydralazine 10 mg IV every 6 hours as needed. Metoprolol 12.5 mg p.o. twice daily losartan 50 mg p.o. daily. We will monitor the blood pressure closely -- DVT prophylaxis Current Visit: Yes Status: Acute Closely monitor the patient and adjust the management as needed Plan of care reviewed with the patient and her nurse Note ; patient has severe pancytopenia, severe neutropenia Associated with severe weakness and dizziness Patient is chronically ill looking, may need more than 2 nights of observation Evaluation and management Please neutropenia precautions Consult hematology if telemetry cardiology coordinator are available History Interval history: I have seen and examined the patient at the bedside Patient's chart and medications reviewed Patient complains of severe generalized weakness, unable to get out of the bed Patient has severe leukopenia, neutropenia Patient is cachectic chronically ill looking In mild distress Vital signs noted Hospitalist Physical - Constitutional Vitals: Temp Pulse Resp BP Pulse Ox 98.6 F 99 H 19 128/63 84 01/06/21 15:54 01/06/21 15:54 01/06/21 15:54 01/06/21 15:54 01/06/21 15:54 General appearance: Present: mild distress, cachectic, other (Complaints of severe generalized weakness) - EENT Eyes: Present: PERRL ( cachexia), EOM intact - Neck Neck: Present: supple, normal ROM - Respiratory Respiratory effort: normal Respiratory: bilateral: diminished, negative: rales, rhonchi, wheezing - Cardiovascular Rhythm: regular Heart Sounds: Present: S1 & S2 - Extremities Extremities: no ischemia, No edema - Abdominal General gastrointestinal: soft, non-tender, non-distended, normal bowel sounds - Integumentary Integumentary: Present: clear, warm - Psychiatric Psychiatric: appropriate mood/affect, cooperative - Neurologic Neurologic: CNII-XII intact, moves all extremities Results - Labs CBC & Chem 7: 01/06/21 06:36 01/06/21 06:36 Labs: Laboratory Last Values WBC 1.7 K/mm3 (4.5-11.0) L* 01/06/21 06:36 RBC 2.51 M/mm3 (3.65-5.03) L 01/06/21 06:36 Hgb 7.1 gm/dl (10.1-14.3) L 01/06/21 06:36 Hct 21.7 % (30.3-42.9) L 01/06/21 06:36 MCV 87 fl (79-97) 01/06/21 06:36 MCH 28 pg (28-32) 01/06/21 06:36 MCHC 32 % (30-34) 01/06/21 06:36 RDW 21.2 % (13.2-15.2) H 01/06/21 06:36 Plt Count 75 K/mm3 (140-440) L 01/06/21 06:36 Add Manual Diff Complete 01/06/21 06:36 Total Counted 100 01/06/21 06:36 Seg Neuts % (Manual) 73.0 % (40.0-70.0) H 01/06/21 06:36 Lymphocytes % (Manual) 13.0 % (13.4-35.0) L 01/06/21 06:36 Reactive Lymphs % (Man) 1.0 % 01/06/21 06:36 Monocytes % (Manual) 4.0 % (0.0-7.3) 01/06/21 06:36 Eosinophils % (Manual) 9.0 % (0.0-4.3) H 01/06/21 06:36 Basophils % (Manual) 2.0 % (0.0-1.8) H 01/05/21 21:12 Nucleated RBC % Not Reportable 01/06/21 06:36 Seg Neutrophils # Man 1.2 K/mm3 (1.8-7.7) L 01/06/21 06:36 Band Neutrophils # 0.0 K/mm3 01/06/21 06:36 Lymphocytes # (Manual) 0.2 K/mm3 (1.2-5.4) L 01/06/21 06:36 Abs React Lymphs (Man) 0.0 K/mm3 01/06/21 06:36 Monocytes # (Manual) 0.1 K/mm3 (0.0-0.8) 01/06/21 06:36 Eosinophils # (Manual) 0.2 K/mm3 (0.0-0.4) 01/06/21 06:36 Basophils # (Manual) 0.0 K/mm3 (0.0-0.1) 01/06/21 06:36 Metamyelocytes # 0.0 K/mm3 01/06/21 06:36 Myelocytes # 0.0 K/mm3 01/06/21 06:36 Promyelocytes # 0.0 K/mm3 01/06/21 06:36 Blast Cells # 0.0 K/mm3 01/06/21 06:36 WBC Morphology Not Reportable 01/06/21 06:36 Hypersegmented Neuts Not Reportable 01/06/21 06:36 Hyposegmented Neuts Not Reportable 01/06/21 06:36 Hypogranular Neuts Not Reportable 01/06/21 06:36 Smudge Cells Not Reportable 01/06/21 06:36 Toxic Granulation Not Reportable 01/06/21 06:36 Toxic Vacuolation Not Reportable 01/06/21 06:36 Dohle Bodies Not Reportable 01/06/21 06:36 Pelger-Huet Anomaly Not Reportable 01/06/21 06:36 Graciela Rods Not Reportable 01/06/21 06:36 Platelet Estimate Consistent w auto 01/06/21 06:36 Clumped Platelets Not Reportable 01/06/21 06:36 Plt Clumps, EDTA Not Reportable 01/06/21 06:36 Large Platelets Not Reportable 01/06/21 06:36 Giant Platelets Not Reportable 01/06/21 06:36 Platelet Satelliting Not Reportable 01/06/21 06:36 Plt Morphology Comment Not Reportable 01/06/21 06:36 RBC Morphology Not Reportable 01/06/21 06:36 Dimorphic RBCs Not Reportable 01/06/21 06:36 Polychromasia Not Reportable 01/06/21 06:36 Hypochromasia 1+ 01/06/21 06:36 Poikilocytosis Not Reportable 01/06/21 06:36 Anisocytosis 1+ 01/06/21 06:36 Microcytosis Few 01/06/21 06:36 Macrocytosis Not Reportable 01/06/21 06:36 Spherocytes Not Reportable 01/06/21 06:36 Pappenheimer Bodies Not Reportable 01/06/21 06:36 Sickle Cells Not Reportable 01/06/21 06:36 Target Cells Not Reportable 01/06/21 06:36 Tear Drop Cells Not Reportable 01/06/21 06:36 Ovalocytes Not Reportable 01/06/21 06:36 Helmet Cells Not Reportable 01/06/21 06:36 [place] Bodies Not Reportable 01/06/21 06:36 [place] Rings Not Reportable 01/06/21 06:36 [place] Cells Not Reportable 01/06/21 06:36 Bite Cells Not Reportable 01/06/21 06:36 Crenated Cell Not Reportable 01/06/21 06:36 Elliptocytes Not Reportable 01/06/21 06:36 Acanthocytes (Spur) Not Reportable 01/06/21 06:36 Rouleaux Not Reportable 01/06/21 06:36 Hemoglobin C Crystals Not Reportable 01/06/21 06:36 Schistocytes Not Reportable 01/06/21 06:36 Malaria parasites Not Reportable 01/06/21 06:36 Enrrique Bodies Not Reportable 01/06/21 06:36 Hem Pathologist Commnt No 01/06/21 06:36 Sodium 139 mmol/L (137-145) 01/06/21 06:36 Potassium 4.2 mmol/L (3.6-5.0) 01/06/21 06:36 Chloride 99.0 mmol/L (98-107) 01/06/21 06:36 Carbon Dioxide 25 mmol/L (22-30) 01/06/21 06:36 Anion Gap 19 mmol/L 01/06/21 06:36 BUN 52 mg/dL (7-17) H 01/06/21 06:36 Creatinine 13.1 mg/dL (0.6-1.2) H 01/06/21 06:36 Estimated GFR 4 ml/min 01/06/21 06:36 BUN/Creatinine Ratio 4 % 01/06/21 06:36 Glucose 81 mg/dL (65-100) 01/06/21 06:36 Calcium 7.7 mg/dL (8.4-10.2) L 01/06/21 06:36 Magnesium 2.00 mg/dL (1.7-2.3) 01/05/21 21:12 Total Bilirubin 0.40 mg/dL (0.1-1.2) 01/05/21 21:12 AST 10 units/L (5-40) 01/05/21 21:12 ALT < 5 units/L (7-56) L 01/05/21 21:12 Alkaline Phosphatase 96 units/L (35-129) 01/05/21 21:12 Total Protein 7.1 g/dL (6.3-8.2) 01/05/21 21:12 Albumin 3.2 g/dL (3.9-5) L 01/05/21 21:12 Albumin/Globulin Ratio 0.8 % 01/05/21 21:12 Nasal Screen MRSA (PCR) Negative (Negative) 01/06/21 Unknown Hepatitis A IgM Ab Non-reactive (NonReactive) 01/06/21 09:01 Hep Bs Antigen Non-reactive (Negative) 01/06/21 09:01 Hep B Core IgM Ab Non-reactive (NonReactive) 01/06/21 09:01 Hepatitis C Antibody Non-reactive (NonReactive) 01/06/21 09:01 Active Medications - Current Medications Current Medications: Generic Name Dose Route Start Last Admin Trade Name Freq PRN Reason Stop Dose Admin Acetaminophen 650 mg 01/05/21 22:28 Acetaminophen 325 Mg Tab PO Q4H PRN Pain MILD(1-3)/Fever >100.5/MCDANIEL Albumin Human 25 gm 01/06/21 05:12 Albumin Human 25% (25 Gm/100 Ml) Inj IV GREY PRN Hypotension Albuterol 2.5 mg 01/06/21 02:00 Albuterol 2.5 Mg/3 Ml Nebu IH Q6HRT PRN Shortness Of Breath Aspirin 81 mg 01/06/21 10:00 01/06/21 12:33 Aspirin Ec 81 Mg Tab PO 81 mg QDAY LENCHO Administration Atorvastatin Calcium 40 mg 01/06/21 22:00 Atorvastatin 40 Mg Tab PO QHS LENCHO Azithromycin 250 mg 01/07/21 10:00 Azithromycin 250 Mg Tab PO 01/10/21 10:01 DAILY LENCHO Protocol Calcitriol 1 mcg 01/06/21 10:00 01/06/21 15:22 Calcitriol 0.5 Mcg Cap PO 1 mcg QDAY LENCHO Administration Calcium Acetate 2,001 mg 01/06/21 08:00 01/06/21 15:23 Calcium Acetate 667 Mg Cap PO Not Given TIDWM LENCHO Calcium Carbonate/Glycine 750 mg 01/06/21 22:00 Calcium Carbonate 500 Mg Tab Chew PO QHS LENCHO Clopidogrel Bisulfate 75 mg 01/06/21 10:00 01/06/21 12:33 Clopidogrel 75 Mg Tab PO 75 mg QDAY LENCHO Administration Diphenoxylate HCl/Atropine 2 tab 01/06/21 08:56 Diphenoxylate/Atropine Tab PO Q4H PRN Diarrhea Famotidine 20 mg 01/06/21 10:00 01/06/21 12:33 Famotidine 20 Mg Tab PO 20 mg QAM LENCHO Administration Fluticasone Propionate 50 mcg 01/05/21 22:31 Fluticasone Propionate Nasal [place] 16 Gm NS QDAY PRN Nasal Congestion Gabapentin 100 mg 01/06/21 14:00 01/06/21 15:23 Gabapentin 100 Mg Cap PO Not Given Q8HR LENCHO Heparin Sodium (Porcine) 5,000 unit 01/06/21 06:00 01/06/21 15:23 Heparin 5,000 Unit/1 Ml Vial SUB-Q 5,000 unit Q8HR LENCHO Administration Hydralazine HCl 10 mg 01/05/21 22:31 Hydralazine 20 Mg/1 Ml Inj IV Q6H PRN htn Hydralazine HCl 50 mg 01/06/21 10:00 01/06/21 12:32 Hydralazine 25 Mg Tab PO 50 mg BID LENCHO Administration Sodium Chloride 100 mls @ 999 mls/hr 01/06/21 05:12 Nacl 0.9% IV GREY PRN Hypotension Levetiracetam 500 mg 01/06/21 10:00 01/06/21 12:33 Levetiracetam 500 Mg Tab PO 500 mg BID LENCHO Administration Loperamide HCl 2 mg 01/05/21 22:31 01/06/21 12:43 Loperamide 2 Mg Cap PO 2 mg Q4H PRN Administration Diarrhea Losartan Potassium 50 mg 01/06/21 10:00 01/06/21 12:32 Losartan 50 Mg Tab PO 50 mg QDAY LENCHO Administration Metoprolol Tartrate 12.5 mg 01/06/21 08:00 01/06/21 12:33 Metoprolol Tartrate 25 Mg Tab PO 12.5 mg BID@0800,1700 LENCHO Administration Mirtazapine 15 mg 01/06/21 22:00 Mirtazapine 15 Mg Tab PO QHS LENCHO Ondansetron HCl 4 mg 01/05/21 22:28 01/06/21 05:29 Ondansetron 4 Mg/2 Ml Inj IV 4 mg Q8H PRN Administration Nausea And Vomiting Oxycodone/Acetaminophen 1 tab 01/05/21 22:31 Oxycodone /Acetaminophen 5-325mg Tab PO Q6H PRN Pain, Moderate (4-6) Sodium Chloride 10 ml 01/06/21 10:00 01/06/21 15:23 Sodium Chloride 0.9% 10 Ml Flush Syringe IV 10 ml BID LENCHO Administration Sodium Chloride 10 ml 01/05/21 22:28 Sodium Chloride 0.9% 10 Ml Flush Syringe IV PRN PRN LINE FLUSH Torsemide 20 mg 01/06/21 10:00 01/06/21 12:32 Torsemide 10 Mg Tab PO 20 mg QDAY LENCHO Administration Nutrition/Malnutrition Assess - Dietary Evaluation Nutrition/Malnutrition Findings: Nutrition Notes Start: 01/06/21 08:59 Freq: Status: Active Protocol: Document 01/06/21 08:59 CW (Rec: 01/06/21 09:06 CW [id number]) Nutrition Notes Need for Assessment generated from: MST Initial or Follow up Brief Note Current Diagnosis CKD (stage V CKD),COPD, Coronary Artery Disease, Diabetes,Hypertension,Heart Failure,Hyperlipidemia Other Pertinent Diagnosis on HD, h/o CVA Current Diet Renal diet Labs/Tests BUN 52 Cr 13.1 Pertinent Medications Zofran Height 5 ft 9 in Weight 71.5 kg [place] Body Weight (kg) 65.90 BMI 23.3 Weight change and time frame weight stable from last visit on 10/28/2020 (69kg) Weight Status Appropriate Subjective/Other Information RN screen for MST. Pt OOB at time of visit for HD. RN reports that pt is having nausea and diarrhea but ate 50 % of breakfast prior to HD. GI Symptoms Nausea,Diarrhea Skin Integrity/Comment Intact Minimum of two criteria No Reduced [employer] Strength Measurably Reduced (severe) Is patient on ventilator? No Is Patient Ambulatory and/or Out of Bed Yes REE-([facility]-ambulatory/OOB) [ [id number]] Calculation Used for Recommendations [facility] Additional Notes protein needs: 86g (>1.2 g/ kgBW) fluid needs: 1000 - 1500 ml or per MD order Nutrition Intervention Change Diet Order: Continue Renal diet Goal #1 Meet at least 75% of kcal and protein needs via PO Anticipated Discharge Needs: Renal Consistent Carbohydrate Diet Follow-Up By: 01/09/21 Additional Comments F/U for MST assessment and intakes
[2021-01-06] MEDS ORDERED: MIRTAZAPINE 15 MG TAB PO SCH (22:00)
[2021-01-06] MEDS ORDERED: CALCIUM CARBONATE 500 MG TAB CHEW PO SCH (22:00)
[2021-01-06] MEDS: DIPHENOXYLATE/ATROPINE TAB PO PRN (22:01)
[2021-01-07] MEDS: GABAPENTIN 100 MG CAP PO SCH ×2 (05:02→16:58)
[2021-01-07] MEDS: HEPARIN 5,000 UNIT/1 ML VIAL SUB-Q SCH ×2 (05:02→16:58)
[2021-01-07 06:16] LABS: Basophils % (Auto) 0.4 % (0.0-1.8); Eosinophils % (Auto) 1.3 % (0.0-4.3); Hematocrit 25.1 % (30.3-42.9); Lymphocytes # (Auto) 0.4 K/mm3 (1.2-5.4); Lymphocytes % (Auto) 10.7 % (13.4-35.0); Mean Corpuscular HGB Conc 32 % (30-34); Mean Corpuscular Volume 87 fl (79-97); Monocytes # (Auto) 0.3 K/mm3 (0.0-0.8); Monocytes % (Auto) 8.8 % (0.0-7.3); Red Blood Count 2.88 M/mm3 (3.65-5.03)
[2021-01-07 06:30] LABS: Platelet Count 77 K/mm3 (140-440); Red Cell Distribution Width 21.8 % (13.2-15.2)
[2021-01-07 06:32] LABS: Albumin 3.6 g/dL (3.9-5); Blood Urea Nitrogen 35 mg/dL (7-17); Calcium 8.7 mg/dL (8.4-10.2); Hemolysis Index 1
[2021-01-07 06:35] LABS: Alanine Aminotransferase < 5 units/L (7-56); BUN/Creatinine Ratio 4
[2021-01-07] MEDS: CALCIUM ACETATE 667 MG CAP PO SCH ×3 (08:43→18:09)
[2021-01-07] MEDS: METOPROLOL TARTRATE 25 MG TAB PO SCH ×2 (08:44→16:59)
[2021-01-07] MEDS: DIPHENOXYLATE/ATROPINE TAB PO PRN (08:50)
--- NOTE | 2021-01-07 09:37 | Progress Note ---
Assessment and Plan Assessment and plan: --Febrile illness; T-max 101.2 in the setting of pancytopenia Closely monitor for any new episodes of fever Oliveira PCR test requested Continue symptomatic management Follow cultures, if patient has persistent fever None empiric antibiotics and cultures --Severe leukopenia; WBC 1.7 -improved to 3.2 Severe pancytopenia, Patient received Neupogen yesterday 1 dose We will closely monitor cell counts Patient will see stapler machine upon discharge as outpatient Generalized weakness unable to get up Severe cachexia, not feeling well --ESRD needing dialysis Current Visit: Yes Status: Chronic Hemodialysis per schedule, Nephrology following Patient strongly counseled the importance of wearing to the treatment plan specially dialysis patient verbalized understanding --Volume overload missed dialysis Current Visit: Yes Status: Acute oxygen titrate O2 sats to more than 90% Treat underlying cause dialysis per schedule -- Pleural effusion Current Visit: Yes Status: Acute . Diuretics Demadex 20 mg p.o. daily consult nephrology for dialysis in the morning. Recheck BMP in the morning. If needed will consult pulmonary in the morning -- Abdominal pain Current Visit: No Status: Acute Tylenol 650 mg p.o. every 6 as needed. Pepcid 20 mg p.o. twice daily. Oxycodone 1 tablet p.o. every 6 hours as needed -- SOB (shortness of breath) Current Visit: No Status: Acute Oxygen per nasal cannula 3 to per minute. DuoNeb by nebulizer every 4 hours as needed. Demadex 20 mg p.o. daily consult nephrology for dialysis in the morning. --History of CHF (congestive heart failure) Current Visit: No Status: Acute Demadex 20 mg p.o. daily. Fluid restriction consult nephrology for dialysis in the morning. Recheck BMP in the morning -- Anemia in chronic kidney disease Current Visit: Yes Status: Chronic Closely monitor H&H, transfuse as needed, Epogen during dialysis --History of CVA (cerebral vascular accident) Current Visit: Yes Status: Subacute Plan to address problem: Aspirin Plavix and Lipitor Neuro work-up if needed --Hypertension Current Visit: Yes Status: Chronic Hydralazine 50 mg p.o. twice daily, hydralazine 10 mg IV every 6 hours as need ed. Metoprolol 12.5 mg p.o. twice daily losartan 50 mg p.o. daily. We will monitor the blood pressure closely -- DVT prophylaxis Current Visit: Yes Status: Acute Closely monitor the patient and adjust the management as needed Plan of care reviewed with the patient and her nurse Note ; patient has severe pancytopenia, severe neutropenia Associated with severe weakness and dizziness Patient is chronically ill looking, may need more than 2 nights of observation Evaluation and management Please neutropenia precautions Consult hematology if telemetry stapler machine are available 01/07/2021; patient spiked temperature of 101.2 Leukocytosis improved after Neupogen We will closely monitor the patient follow cultures Possible discharge in 1 to 2 days if stable History Interval history: Patient is scheduled for hemodialysis in the dialysis unit No overnight events reported by the nursing staff Vital signs reviewed Hospitalist Physical - Constitutional Vitals: Temp Pulse Resp BP Pulse Ox 101.5 F H 113 H 20 131/74 94 01/07/21 03:35 01/07/21 03:35 01/07/21 03:59 01/07/21 03:35 01/07/21 03:35 General appearance: Present: mild distress, cachectic, other (Complaints of severe generalized weakness) - EENT Eyes: Present: PERRL, EOM intact - Neck Neck: Present: supple, normal ROM - Respiratory Respiratory effort: normal Respiratory: bilateral: diminished, negative: rales, rhonchi, wheezing - Cardiovascular Rhythm: regular Heart Sounds: Present: S1 & S2 - Extremities Extremities: no ischemia, No edema - Abdominal General gastrointestinal: soft, non-tender, non-distended, normal bowel sounds - Integumentary Integumentary: Present: clear, warm - Psychiatric Psychiatric: appropriate mood/affect, cooperative - Neurologic Neurologic: moves all extremities Results - Labs CBC & Chem 7: 01/07/21 04:59 01/07/21 04:59 Labs: Laboratory Last Values WBC 3.7 K/mm3 (4.5-11.0) L 01/07/21 04:59 RBC 2.88 M/mm3 (3.65-5.03) L 01/07/21 04:59 Hgb 8.0 gm/dl (10.1-14.3) L 01/07/21 04:59 Hct 25.1 % (30.3-42.9) L 01/07/21 04:59 MCV 87 fl (79-97) 01/07/21 04:59 MCH 28 pg (28-32) 01/07/21 04:59 MCHC 32 % (30-34) 01/07/21 04:59 RDW 21.8 % (13.2-15.2) H 01/07/21 04:59 Plt Count 77 K/mm3 (140-440) L 01/07/21 04:59 Lymph % (Auto) 10.7 % (13.4-35.0) L 01/07/21 04:59 [place] % (Auto) 8.8 % (0.0-7.3) H 01/07/21 04:59 Eos % (Auto) 1.3 % (0.0-4.3) 01/07/21 04:59 Baso % (Auto) 0.4 % (0.0-1.8) 01/07/21 04:59 Lymph # (Auto) 0.4 K/mm3 (1.2-5.4) L 01/07/21 04:59 [place] # (Auto) 0.3 K/mm3 (0.0-0.8) 01/07/21 04:59 Eos # (Auto) 0.0 K/mm3 (0.0-0.4) 01/07/21 04:59 Baso # (Auto) 0.0 K/mm3 (0.0-0.1) 01/07/21 04:59 Add Manual Diff Complete 01/06/21 06:36 Total Counted 100 01/06/21 06:36 Seg Neutrophils % 78.8 % (40.0-70.0) H 01/07/21 04:59 Seg Neuts % (Manual) 73.0 % (40.0-70.0) H 01/06/21 06:36 Lymphocytes % (Manual) 13.0 % (13.4-35.0) L 01/06/21 06:36 Reactive Lymphs % (Man) 1.0 % 01/06/21 06:36 Monocytes % (Manual) 4.0 % (0.0-7.3) 01/06/21 06:36 Eosinophils % (Manual) 9.0 % (0.0-4.3) H 01/06/21 06:36 Basophils % (Manual) 2.0 % (0.0-1.8) H 01/05/21 21:12 Nucleated RBC % Not Reportable 01/06/21 06:36 Seg Neutrophils # 2.9 K/mm3 (1.8-7.7) 01/07/21 04:59 Seg Neutrophils # Man 1.2 K/mm3 (1.8-7.7) L 01/06/21 06:36 Band Neutrophils # 0.0 K/mm3 01/06/21 06:36 Lymphocytes # (Manual) 0.2 K/mm3 (1.2-5.4) L 01/06/21 06:36 Abs React Lymphs (Man) 0.0 K/mm3 01/06/21 06:36 Monocytes # (Manual) 0.1 K/mm3 (0.0-0.8) 01/06/21 06:36 Eosinophils # (Manual) 0.2 K/mm3 (0.0-0.4) 01/06/21 06:36 Basophils # (Manual) 0.0 K/mm3 (0.0-0.1) 01/06/21 06:36 Metamyelocytes # 0.0 K/mm3 01/06/21 06:36 Myelocytes # 0.0 K/mm3 01/06/21 06:36 Promyelocytes # 0.0 K/mm3 01/06/21 06:36 Blast Cells # 0.0 K/mm3 01/06/21 06:36 WBC Morphology Not Reportable 01/06/21 06:36 Hypersegmented Neuts Not Reportable 01/06/21 06:36 Hyposegmented Neuts Not Reportable 01/06/21 06:36 Hypogranular Neuts Not Reportable 01/06/21 06:36 Smudge Cells Not Reportable 01/06/21 06:36 Toxic Granulation Not Reportable 01/06/21 06:36 Toxic Vacuolation Not Reportable 01/06/21 06:36 Dohle Bodies Not Reportable 01/06/21 06:36 Pelger-Huet Anomaly Not Reportable 01/06/21 06:36 Graciela Rods Not Reportable 01/06/21 06:36 Platelet Estimate Consistent w auto 01/06/21 06:36 Clumped Platelets Not Reportable 01/06/21 06:36 Plt Clumps, EDTA Not Reportable 01/06/21 06:36 Large Platelets Not Reportable 01/06/21 06:36 Giant Platelets Not Reportable 01/06/21 06:36 Platelet Satelliting Not Reportable 01/06/21 06:36 Plt Morphology Comment Not Reportable 01/06/21 06:36 RBC Morphology Not Reportable 01/06/21 06:36 Dimorphic RBCs Not Reportable 01/06/21 06:36 Polychromasia Not Reportable 01/06/21 06:36 Hypochromasia 1+ 01/06/21 06:36 Poikilocytosis Not Reportable 01/06/21 06:36 Anisocytosis 1+ 01/06/21 06:36 Microcytosis Few 01/06/21 06:36 Macrocytosis Not Reportable 01/06/21 06:36 Spherocytes Not Reportable 01/06/21 06:36 Pappenheimer Bodies Not Reportable 01/06/21 06:36 Sickle Cells Not Reportable 01/06/21 06:36 Target Cells Not Reportable 01/06/21 06:36 Tear Drop Cells Not Reportable 01/06/21 06:36 Ovalocytes Not Reportable 01/06/21 06:36 Helmet Cells Not Reportable 01/06/21 06:36 [place] Bodies Not Reportable 01/06/21 06:36 [place] Rings Not Reportable 01/06/21 06:36 [place] Cells Not Reportable 01/06/21 06:36 Bite Cells Not Reportable 01/06/21 06:36 Crenated Cell Not Reportable 01/06/21 06:36 Elliptocytes Not Reportable 01/06/21 06:36 Acanthocytes (Spur) Not Reportable 01/06/21 06:36 Rouleaux Not Reportable 01/06/21 06:36 Hemoglobin C Crystals Not Reportable 01/06/21 06:36 Schistocytes Not Reportable 01/06/21 06:36 Malaria parasites Not Reportable 01/06/21 06:36 Enrrique Bodies Not Reportable 01/06/21 06:36 Hem Pathologist Commnt No 01/06/21 06:36 Sodium 139 mmol/L (137-145) 01/07/21 04:59 Potassium 4.0 mmol/L (3.6-5.0) 01/07/21 04:59 Chloride 98.5 mmol/L (98-107) 01/07/21 04:59 Carbon Dioxide 28 mmol/L (22-30) 01/07/21 04:59 Anion Gap 17 mmol/L 01/07/21 04:59 BUN 35 mg/dL (7-17) H 01/07/21 04:59 Creatinine 9.4 mg/dL (0.6-1.2) H 01/07/21 04:59 Estimated GFR 5 ml/min 01/07/21 04:59 BUN/Creatinine Ratio 4 % 01/07/21 04:59 Glucose 102 mg/dL (65-100) H 01/07/21 04:59 Calcium 8.7 mg/dL (8.4-10.2) 01/07/21 04:59 Magnesium 1.70 mg/dL (1.7-2.3) 01/07/21 04:59 Total Bilirubin 0.50 mg/dL (0.1-1.2) 01/07/21 04:59 AST 11 units/L (5-40) 01/07/21 04:59 ALT < 5 units/L (7-56) L 01/07/21 04:59 Alkaline Phosphatase 90 units/L (35-129) 01/07/21 04:59 Total Protein 7.4 g/dL (6.3-8.2) 01/07/21 04:59 Albumin 3.6 g/dL (3.9-5) L 01/07/21 04:59 Albumin/Globulin Ratio 0.9 % 01/07/21 04:59 Nasal Screen MRSA (PCR) Negative (Negative) 01/06/21 Unknown Hepatitis A IgM Ab Non-reactive (NonReactive) 01/06/21 09:01 Hep Bs Antigen Non-reactive (Negative) 01/06/21 09:01 Hep B Core IgM Ab Non-reactive (NonReactive) 01/06/21 09:01 Hepatitis C Antibody Non-reactive (NonReactive) 01/06/21 09:01 Microbiology: Microbiology 01/07/21 04:59 Peripheral/Venous Blood Culture - Preliminary Culture in Progress 01/07/21 05:30 Peripheral/Venous Blood Culture - Preliminary Culture in Progress Active Medications - Current Medications Current Medications: Generic Name Dose Route Start Last Admin Trade Name Freq PRN Reason Stop Dose Admin Acetaminophen 650 mg 01/05/21 22:28 01/07/21 03:59 Acetaminophen 325 Mg Tab PO 650 mg Q4H PRN Administration Pain MILD(1-3)/Fever >100.5/MCDANIEL Albumin Human 25 gm 05/28/21 05:12 Albumin Human 25% (25 Gm/100 Ml) Inj IV GREY PRN Hypotension Albuterol 2.5 mg 01/06/21 02:00 Albuterol 2.5 Mg/3 Ml Nebu IH Q6HRT PRN Shortness Of Breath Aspirin 81 mg 01/06/21 10:00 01/06/21 12:33 Aspirin Ec 81 Mg Tab PO 81 mg QDAY LENCHO Administration Atorvastatin Calcium 40 mg 01/06/21 22:00 01/06/21 22:01 Atorvastatin 40 Mg Tab PO 40 mg QHS LENCHO Administration Azithromycin 250 mg 01/07/21 10:00 Azithromycin 250 Mg Tab PO 01/10/21 10:01 DAILY [facility] Protocol Calcitriol 1 mcg 01/06/21 10:00 01/06/21 15:22 Calcitriol 0.5 Mcg Cap PO 1 mcg QDAY LENCHO Administration Calcium Acetate 2,001 mg 01/06/21 08:00 01/07/21 08:43 Calcium Acetate 667 Mg Cap PO 2,001 mg TIDWM LENCHO Administration Calcium Carbonate/Glycine 750 mg 01/06/21 22:00 01/06/21 22:03 Calcium Carbonate 500 Mg Tab Chew PO 750 mg QHS LENCHO Administration Clopidogrel Bisulfate 75 mg 01/06/21 10:00 01/06/21 12:33 Clopidogrel 75 Mg Tab PO 75 mg QDAY LENCHO Administration Diphenoxylate HCl/Atropine 2 tab 01/06/21 08:56 01/07/21 08:50 Diphenoxylate/Atropine Tab PO 2 tab Q4H PRN Administration Diarrhea Famotidine 20 mg 01/06/21 10:00 01/06/21 12:33 Famotidine 20 Mg Tab PO 20 mg QAM LENCHO Administration Fluticasone Propionate 50 mcg 01/05/21 22:31 Fluticasone Propionate Nasal [place] 16 Gm NS QDAY PRN Nasal Congestion Gabapentin 100 mg 01/06/21 14:00 01/07/21 05:02 Gabapentin 100 Mg Cap PO 100 mg Q8HR LENCHO Administration Heparin Sodium (Porcine) 5,000 unit 01/06/21 06:00 01/07/21 05:02 Heparin 5,000 Unit/1 Ml Vial SUB-Q 5,000 unit Q8HR LENCHO Administration Hydralazine HCl 10 mg 01/05/21 22:31 Hydralazine 20 Mg/1 Ml Inj IV Q6H PRN htn Hydralazine HCl 50 mg 01/06/21 10:00 01/06/21 22:17 Hydralazine 25 Mg Tab PO 50 mg BID LENCHO Administration Sodium Chloride 100 mls @ 999 mls/hr 01/06/21 05:12 Nacl 0.9% IV GREY PRN Hypotension Levetiracetam 500 mg 01/06/21 10:00 01/06/21 22:02 Levetiracetam 500 Mg Tab PO 500 mg BID LENCHO Administration Loperamide HCl 2 mg 01/05/21 22:31 01/06/21 12:43 Loperamide 2 Mg Cap PO 2 mg Q4H PRN Administration Diarrhea Losartan Potassium 50 mg 01/06/21 10:00 01/06/21 12:32 Losartan 50 Mg Tab PO 50 mg QDAY LENCHO Administration Metoprolol Tartrate 12.5 mg 01/06/21 08:00 01/07/21 08:44 Metoprolol Tartrate 25 Mg Tab PO 12.5 mg BID@0800,1700 LENCHO Administration Mirtazapine 15 mg 01/06/21 22:00 01/06/21 22:01 Mirtazapine 15 Mg Tab PO 15 mg QHS LENCHO Administration Ondansetron HCl 4 mg 01/05/21 22:28 01/06/21 05:29 Ondansetron 4 Mg/2 Ml Inj IV 4 mg Q8H PRN Administration Nausea And Vomiting Oxycodone/Acetaminophen 1 tab 01/05/21 22:31 Oxycodone /Acetaminophen 5-325mg Tab PO Q6H PRN Pain, Moderate (4-6) Sodium Chloride 10 ml 01/06/21 10:00 01/06/21 22:09 Sodium Chloride 0.9% 10 Ml Flush Syringe IV 10 ml BID LENCHO Administration Sodium Chloride 10 ml 01/05/21 22:28 Sodium Chloride 0.9% 10 Ml Flush Syringe IV PRN PRN LINE FLUSH Tbo-Filgrastim 480 mcg 01/07/21 10:00 Tbo-Filgrastim 480 Mcg/0.8 Ml SUB-Q DAILY LENCHO Torsemide 20 mg 01/06/21 10:00 01/06/21 12:32 Torsemide 10 Mg Tab PO 20 mg QDAY LENCHO Administration Nutrition/Malnutrition Assess - Dietary Evaluation Nutrition/Malnutrition Findings: Nutrition Notes Start: 01/06/21 08:59 Freq: Status: Active Protocol: Document 01/06/21 08:59 CW (Rec: 01/06/21 09:06 CW [id number]) Nutrition Notes Need for Assessment generated from: MST Initial or Follow up Brief Note Current Diagnosis CKD (stage V CKD),COPD, Coronary Artery Disease, Diabetes,Hypertension,Heart Failure,Hyperlipidemia Other Pertinent Diagnosis on HD, h/o CVA Current Diet Renal diet Labs/Tests BUN 52 Cr 13.1 Pertinent Medications Zofran Height 5 ft 9 in Weight 71.5 kg [place] Body Weight (kg) 65.90 BMI 23.3 Weight change and time frame weight stable from last visit on 10/28/2020 (69kg) Weight Status Appropriate Subjective/Other Information RN screen for MST. Pt OOB at time of visit for HD. RN reports that pt is having nausea and diarrhea but ate 50 % of breakfast prior to HD. GI Symptoms Nausea,Diarrhea Skin Integrity/Comment Intact Minimum of two criteria No Reduced [employer] Analyst Strength Measurably Reduced (severe) Is patient on ventilator? No Is Patient Ambulatory and/or Out of Bed Yes REE-(Rose-St. Jeor-ambulatory/OOB) [ [id number] [id number]] Calculation Used for Recommendations Rose-St Jeor Additional Notes protein needs: 86g (>1.2 g/ kgBW) fluid needs: 1000 - 1500 ml or per MD order Nutrition Intervention Change Diet Order: Continue Renal diet Goal #1 Meet at least 75% of kcal and protein needs via PO Anticipated Discharge Needs: Renal Consistent Carbohydrate Diet Follow-Up By: 01/09/21 Additional Comments F/U for MST assessment and intakes
--- NOTE | 2021-01-07 09:47 | Event Note ---
Date: 01/07/21 I called patient's NOK/Daughter: Alicia Romeoj luis: [phone]. Discussed in detail tests and reports patient's condition, 101 temperature this morning, and her pancytopenia , treatment and discharge planning. In the setting of 101 degrees fever and pancytopenia, we would like to closely monitor next 24 hours and if stable plan discharge tomorrow. Ms. Vargas agreed with the plan, I also encouraged her to call back if she has any new questions or concerns
[2021-01-07] MEDS ORDERED: TBO-FILGRASTIM 480 MCG/0.8 ML SUB-Q SCH (10:00)
[2021-01-07] MEDS ORDERED: AZITHROMYCIN 250 MG TAB PO SCH (10:00)
--- NOTE | 2021-01-07 10:46 | Progress Note ---
Assessment and Plan Impression: * End stage renal disease * Anemia secondary to ESRD * htn * fever * shortness of breath * Secondary hyperparathyroidism * Medical noncompliance Plan: * Continue hemodialysis q TTHST * stress compliance with medical therapy * fever noted, workup per primary team * abx for PNA vs pleural effusion * rec covid testing * UF as tolerated * Epogen TIW prn * neurontin dose is too high, reduced to 100mg tid * Renal diet Subjective Date of service: 01/07/21 Principal diagnosis: esrd Interval history: resting in bed today Objective - Exam Narrative Exam: GENERAL: The patient is well-developed well-nourished. HENT: Normocephalic. Atraumatic. Patient has moist mucous membranes. EYES: Extraocular motions are intact. NECK: Supple. Trachea is midline. CHEST/LUNGS: Coarse breaths sounds throughout the chest. There is no respiratory distress noted. HEART/CARDIOVASCULAR: Regular. There is no tachycardia. There is no murmur. ABDOMEN: Abdomen is soft, nontender. Bowel sounds are heard but there also sounds consistent with ascites. Mild abdominal distention. SKIN: Skin is warm and dry. NEURO: The patient is awake, alert, and cooperative. The patient has no focal neurologic deficits. Normal speech. MUSCULOSKELETAL: There is no tenderness or deformity. There is no limitation range of motion. - Vital Signs Vital signs: Vital Signs - 12hr 01/07/21 01/07/21 03:35 03:59 Temperature 101.5 F H Pulse Rate 113 H Respiratory 18 20 Rate Blood Pressure 131/74 O2 Sat by Pulse 94 Oximetry - Lab 01/07/21 04:59 01/07/21 04:59 Most recent lab results Calcium 8.7 mg/dL (8.4-10.2) 01/07/21 04:59 Magnesium 1.70 mg/dL (1.7-2.3) 01/07/21 04:59 Medications & Allergies - Medications Allergies/Adverse Reactions: Allergies No Known Allergies Allergy (Verified 01/19/20 05:43) Home Medications: Home Medications Medication Instructions Recorded Confirmed Last Taken Type Fluticasone [Flonase] 1 spray NS QDAY PRN 12/01/19 01/06/21 01/18/20 History Calcium Carbonate [Tums 500MG CHEW] 750 mg PO QHS #30 02/02/20 01/06/21 02/20/20 Rx Gabapentin [Neurontin] 800 mg PO TID #90 tab 02/02/20 01/06/21 02/20/20 Rx Mirtazapine [Remeron 15mg TAB] 15 mg PO QHS #30 tab 02/02/20 01/06/21 02/20/20 Rx Acetaminophen [Acetaminophen TAB] 650 mg PO Q4H PRN tablet 04/21/20 01/06/21 Unknown Rx Aspirin EC [Halfprin EC] 81 mg PO QDAY #30 tablet 04/21/20 01/06/21 Unknown Rx AtorvaSTATin [Lipitor] 40 mg PO QHS #30 tablet 04/21/20 01/06/21 Unknown Rx Calcium Acetate [Phoslo] 2,001 mg PO TIDWM #30 capsule 04/21/20 01/06/21 Unknown Rx Clopidogrel [Plavix] 75 mg PO QDAY #30 tab 04/21/20 01/06/21 Unknown Rx Epoetin Hiro 20,000 Unit [Procrit] 20,000 unit IV GREY vial 04/21/20 01/06/21 Unknown Rx Loperamide [Imodium] 2 mg PO Q4HR PRN #24 capsule 04/21/20 01/06/21 Unknown Rx Losartan [Cozaar] 50 mg PO QDAY #30 tablet 04/21/20 01/06/21 Unknown Rx Metoprolol [Lopressor TAB] 12.5 mg PO BID #60 tablet 04/21/20 01/06/21 Unknown Rx Torsemide [Demadex] 20 mg PO QDAY tablet 04/21/20 01/06/21 Unknown Rx calcitrioL [Rocaltrol] 1 mcg PO QDAY #30 cap 04/21/20 01/06/21 Unknown Rx hydrALAZINE [Apresoline TAB] 50 mg PO BID #120 tablet 04/21/20 01/06/21 Unknown Rx levETIRAcetam [Keppra TAB] 500 mg PO BID #60 tablet 04/21/20 01/06/21 Unknown Rx Albuterol Sulfate [Proair 90 mcg IH Q6HR PRN 05/17/20 01/06/21 Unknown History Digihaler] Azithromycin [Zithromax Z-TIMOTHY] 250 mg PO DAILY #6 tab 05/18/20 01/06/21 Unknown Rx Ondansetron [Zofran ODT TAB] 8 mg PO Q8HR PRN #10 05/18/20 01/06/21 Unknown Rx oxyCODONE /ACETAMINOPHEN [Percocet 1 tab PO Q6H PRN #10 tablet 05/18/20 01/06/21 Unknown Rx 5/325 mg] Active Medications: Generic Name Dose Route Start Last Admin Trade Name Freq PRN Reason Stop Dose Admin Acetaminophen 650 mg 01/05/21 22:28 01/07/21 03:59 Acetaminophen 325 Mg Tab PO 650 mg Q4H PRN Administration Pain MILD(1-3)/Fever >100.5/MCDANIEL Albumin Human 25 gm 01/06/21 05:12 Albumin Human 25% (25 Gm/100 Ml) Inj IV GREY PRN Hypotension Albuterol 2.5 mg 01/06/21 02:00 Albuterol 2.5 Mg/3 Ml Nebu IH Q6HRT PRN Shortness Of Breath Aspirin 81 mg 01/06/21 10:00 01/06/21 12:33 Aspirin Ec 81 Mg Tab PO 81 mg QDAY LENCHO Administration Atorvastatin Calcium 40 mg 01/06/21 22:00 01/06/21 22:01 Atorvastatin 40 Mg Tab PO 40 mg QHS LENCHO Administration Azithromycin 250 mg 01/07/21 10:00 Azithromycin 250 Mg Tab PO 01/10/21 10:01 DAILY [facility] Protocol Calcitriol 1 mcg 01/06/21 10:00 01/06/21 15:22 Calcitriol 0.5 Mcg Cap PO 1 mcg QDAY LENCHO Administration Calcium Acetate 2,001 mg 01/06/21 08:00 01/07/21 08:43 Calcium Acetate 667 Mg Cap PO 2,001 mg TIDWM LENCHO Administration Calcium Carbonate/Glycine 750 mg 01/06/21 22:00 01/06/21 22:03 Calcium Carbonate 500 Mg Tab Chew PO 750 mg QHS LENCHO Administration Clopidogrel Bisulfate 75 mg 01/06/21 10:00 01/06/21 12:33 Clopidogrel 75 Mg Tab PO 75 mg QDAY LENCHO Administration Diphenoxylate HCl/Atropine 2 tab 01/06/21 08:56 01/07/21 08:50 Diphenoxylate/Atropine Tab PO 2 tab Q4H PRN Administration Diarrhea Famotidine 20 mg 01/06/21 10:00 01/06/21 12:33 Famotidine 20 Mg Tab PO 20 mg QAM LENCHO Administration Fluticasone Propionate 50 mcg 01/05/21 22:31 Fluticasone Propionate Nasal [place] 16 Gm NS QDAY PRN Nasal Congestion Gabapentin 100 mg 01/06/21 14:00 01/07/21 05:02 Gabapentin 100 Mg Cap PO 100 mg Q8HR LENCHO Administration Heparin Sodium (Porcine) 5,000 unit 01/06/21 06:00 01/07/21 05:02 Heparin 5,000 Unit/1 Ml Vial SUB-Q 5,000 unit Q8HR LENCHO Administration Hydralazine HCl 10 mg 01/05/21 22:31 Hydralazine 20 Mg/1 Ml Inj IV Q6H PRN htn Hydralazine HCl 50 mg 01/06/21 10:00 01/06/21 22:17 Hydralazine 25 Mg Tab PO 50 mg BID LENCHO Administration Sodium Chloride 100 mls @ 999 mls/hr 01/06/21 05:12 Nacl 0.9% IV GREY PRN Hypotension Levetiracetam 500 mg 01/06/21 10:00 01/06/21 22:02 Levetiracetam 500 Mg Tab PO 500 mg BID LENCHO Administration Loperamide HCl 2 mg 01/05/21 22:31 01/06/21 12:43 Loperamide 2 Mg Cap PO 2 mg Q4H PRN Administration Diarrhea Losartan Potassium 50 mg 01/06/21 10:00 01/06/21 12:32 Losartan 50 Mg Tab PO 50 mg QDAY LENCHO Administration Metoprolol Tartrate 12.5 mg 01/06/21 08:00 01/07/21 08:44 Metoprolol Tartrate 25 Mg Tab PO 12.5 mg BID@0800,1700 LENCHO Administration Mirtazapine 15 mg 01/06/21 22:00 01/06/21 22:01 Mirtazapine 15 Mg Tab PO 15 mg QHS LENCHO Administration Ondansetron HCl 4 mg 01/05/21 22:28 01/06/21 05:29 Ondansetron 4 Mg/2 Ml Inj IV 4 mg Q8H PRN Administration Nausea And Vomiting Oxycodone/Acetaminophen 1 tab 01/05/21 22:31 Oxycodone /Acetaminophen 5-325mg Tab PO Q6H PRN Pain, Moderate (4-6) Sodium Chloride 10 ml 01/06/21 10:00 01/06/21 22:09 Sodium Chloride 0.9% 10 Ml Flush Syringe IV 10 ml BID LENCHO Administration Sodium Chloride 10 ml 01/05/21 22:28 Sodium Chloride 0.9% 10 Ml Flush Syringe IV PRN PRN LINE FLUSH Tbo-Filgrastim 480 mcg 01/07/21 10:00 Tbo-Filgrastim 480 Mcg/0.8 Ml SUB-Q DAILY LENCHO Torsemide 20 mg 01/06/21 10:00 01/06/21 12:32 Torsemide 10 Mg Tab PO 20 mg QDAY LENCHO Administration
[2021-01-07] MEDS: hydrALAZINE 25 MG TAB PO SCH (12:27)
[2021-01-07] MEDS: LOSARTAN 50 MG TAB PO SCH (16:55)
[2021-01-07] MEDS: TORSEMIDE 10 MG TAB PO SCH (16:56)
[2021-01-07] MEDS ORDERED: EPOETIN ALFA-EPBX 20,000 UNIT/1 ML VIAL IV SCH (18:00)
[2021-01-07] MEDS: CLOPIDOGREL 75 MG TAB PO SCH (18:06)
[2021-01-07] MEDS: FAMOTIDINE 20 MG TAB PO SCH (18:06)
[2021-01-07] MEDS: ASPIRIN EC 81 MG TAB PO SCH (18:06)
[2021-01-07] MEDS: CALCITRIOL 0.5 MCG CAP PO SCH (18:07)
[2021-01-07] MEDS: levETIRAcetam 500 MG TAB PO SCH (18:07)
[2021-01-07 22:21] VITALS: BP 144/74
[2021-01-10] MEDS ORDERED: EPOETIN ALFA-EPBX 20,000 UNIT/1 ML VIAL IV SCH (18:00)
[2021-01-12] MEDS ORDERED: EPOETIN ALFA-EPBX 20,000 UNIT/1 ML VIAL IV SCH (18:00)
== END 2021-01-07 21:45 | disposition left against medical advice (07) | DRG 640 ==
LOC: ED 20:40 → 3A 22:15 → OBSVTOIN 01-06 12:09
PROVIDERS: ADMIT Hospitalist; ATTEND Internal Medicine
PROC: 5A1D70Z Performance of Urinary Filtration, Intermittent, Less than 6 Hours Per Day (ICD-10-PCS; principal; 2021-01-06)
PROC: 5A1D70Z Performance of Urinary Filtration, Intermittent, Less than 6 Hours Per Day (ICD-10-PCS; 2021-01-06)
DX: E87.70 Fluid overload, unspecified (principal); N18.6 End stage renal disease; D61.818 Other pancytopenia; J90 Pleural effusion, not elsewhere classified; I13.0 Hypertensive heart and chronic kidney disease with heart failure and stage 1 through stage 4 chronic kidney disease, or unspecified chronic kidney disease; N25.81 Secondary hyperparathyroidism of renal origin; J44.9 Chronic obstructive pulmonary disease, unspecified; I50.9 Heart failure, unspecified; M19.90 Unspecified osteoarthritis, unspecified site; E11.22 Type 2 diabetes mellitus with diabetic chronic kidney disease; G43.909 Migraine, unspecified, not intractable, without status migrainosus; D72.819 Decreased white blood cell count, unspecified; D63.1 Anemia in chronic kidney disease; E11.42 Type 2 diabetes mellitus with diabetic polyneuropathy; I25.10 Atherosclerotic heart disease of native coronary artery without angina pectoris; J45.909 Unspecified asthma, uncomplicated; Z95.5 Presence of coronary angioplasty implant and graft; Z87.891 Personal history of nicotine dependence; Z79.899 Other long term (current) drug therapy; Z91.15 Patient's noncompliance with renal dialysis; Z99.2 Dependence on renal dialysis; Z86.73 Personal history of transient ischemic attack (TIA), and cerebral infarction without residual deficits; I25.2 Old myocardial infarction; Z79.891 Long term (current) use of opiate analgesic; Z79.82 Long term (current) use of aspirin
CPT/HCPCS: 36415; 74022; 80048; 80053; 80074; 83735; 85007; 85025; 87040; 87641; 93005; G0378; J0885; J1644; J2405; U0003

== ENCOUNTER 2021-02-06 05:50 | Emergency (ER) | payer MEDICARE ==
[2021-02-06] MEDS ORDERED: IPRATROPIUM/ALBUTEROL SULFATE 3 ML AMPUL.NEB IH ONE ×2 (06:37→09:04)
--- NOTE | 2021-02-06 06:41 | Emergency Department Report ---
HPI - General Chief Complaint: Altered Mental Status Time Seen by Provider: 02/06/21 06:19 - HPI HPI: 61-year-old female with past medical history significant for hypertension, DM 2, seizure disorder, ESRD on hemodialysis //, CHF, COPD on 2L via NC, and history of multiple prior strokes with frequent visits related to medication nonadherence brought in by EMS for altered mental state and shortness of breath. According to the EMS report, the patient was normal last night at about 11 PM. According to her son she became very confused and barely responsive this morning and this is why EMS was called. She has not missed any of her dialysis appo intments and her last hemodialysis session was Saturday. When EMS arrived, the patient was very somnolent and arousable only to pain. She was noted to have oxygen saturation in the 70s but was found without her home oxygen on. The rest of her vital signs were normal. She was put on nonrebreather with improvement of her O2 sats to 100%. After a period of approximately 10 minutes on nonrebreather, the patient became very responsive and her altered mental state resolved. The patient keeps saying "my ass is hurting" and only intermittently answers my questions. Therefore further details of the HPI are limited due to her current clinical condition. ED Past Medical Hx - Past Medical History Hx Hypertension: Yes Hx CVA: Yes (x4, 6TIAs) Hx Heart Attack/AMI: Yes Hx Congestive Heart Failure: Yes Hx Diabetes: Yes Hx Liver Disease: No Hx Renal Disease: Yes (dialysis 2015, , and Sat) Hx Sickle Cell Disease: No Hx Arthritis: Yes Hx Headaches / Migraines: Yes Hx Seizures: Yes Hx Asthma: Yes Hx COPD: Yes Hx HIV: No - Surgical History Hx Coronary Stent: Yes Hx Pacemaker: No Hx Internal Defibrillator: No Hx Breast Surgery: Yes (breast reduction 1979) Additional Surgical History: breast reduction 1979, av fistula left arm - Social History Smoking Status: Former Smoker - Medications Home Medications: Home Medications Medication Instructions Recorded Confirmed Last Taken Type Fluticasone [Flonase] 1 spray NS QDAY PRN 12/01/19 01/06/21 01/18/20 History Calcium Carbonate [Tums 500MG CHEW] 750 mg PO QHS #30 02/02/20 01/06/21 02/20/20 Rx Gabapentin [Neurontin] 800 mg PO TID #90 tab 02/02/20 01/06/21 02/20/20 Rx Mirtazapine [Remeron 15mg TAB] 15 mg PO QHS #30 tab 02/02/20 01/06/21 02/20/20 Rx Acetaminophen [Acetaminophen TAB] 650 mg PO Q4H PRN tablet 04/21/20 01/06/21 Unknown Rx Aspirin EC [Halfprin EC] 81 mg PO QDAY #30 tablet 04/21/20 01/06/21 Unknown Rx AtorvaSTATin [Lipitor] 40 mg PO QHS #30 tablet 04/21/20 01/06/21 Unknown Rx Calcium Acetate [Phoslo] 2,001 mg PO TIDWM #30 capsule 04/21/20 01/06/21 Unknown Rx Clopidogrel [Plavix] 75 mg PO QDAY #30 tab 04/21/20 01/06/21 Unknown Rx Epoetin Hiro 20,000 Unit [Procrit] 20,000 unit IV GREY vial 04/21/20 01/06/21 Unknown Rx Loperamide [Imodium] 2 mg PO Q4HR PRN #24 capsule 04/21/20 01/06/21 Unknown Rx Losartan [Cozaar] 50 mg PO QDAY #30 tablet 04/21/20 01/06/21 Unknown Rx Metoprolol [Lopressor TAB] 12.5 mg PO BID #60 tablet 04/21/20 01/06/21 Unknown Rx Torsemide [Demadex] 20 mg PO QDAY tablet 04/21/20 01/06/21 Unknown Rx calcitrioL [Rocaltrol] 1 mcg PO QDAY #30 cap 04/21/20 01/06/21 Unknown Rx hydrALAZINE [Apresoline TAB] 50 mg PO BID #120 tablet 04/21/20 01/06/21 Unknown Rx levETIRAcetam [Keppra TAB] 500 mg PO BID #60 tablet 04/21/20 01/06/21 Unknown Rx Albuterol Sulfate [Proair 90 mcg IH Q6HR PRN 05/17/20 01/06/21 Unknown History Digihaler] Azithromycin [Zithromax Z-TIMOTHY] 250 mg PO DAILY #6 tab 05/18/20 01/06/21 Unknown Rx Ondansetron [Zofran ODT TAB] 8 mg PO Q8HR PRN #10 05/18/20 01/06/21 Unknown Rx oxyCODONE /ACETAMINOPHEN [Percocet 1 tab PO Q6H PRN #10 tablet 05/18/20 01/06/21 Unknown Rx 5/325 mg] ED Review of Systems ROS: Stated complaint: MIGUEL,AMS Other details as noted in HPI Comment: Unobtainable due to pts medical conditions Physical Exam - Physical Exam Physical Exam: GENERAL: Patient is lying in a stretcher in the hallway in no acute distress. She does not appear uncomfortable. HEENT: Normocephalic. No obvious signs of trauma. Slightly dry mucous membranes. EYES: Extraocular movements are grossly intact. NECK: Supple. Trachea is midline. LUNGS: Nonlabored breathing. Equal chest rise bilaterally. Globally decreased air entry throughout. HEART/CARDIOVASCULAR: Regular rate and rhythm. No murmurs or rubs. VASCULAR: 2+ peripheral pulses. Cap refill < 2 seconds. LUE fistula with bruit/thrill ABDOMEN: Abdomen is soft and nondistended. There is no significant tenderness, guarding or rebound. SKIN: Skin is warm and dry. Band-Aids noted to the right forearm and right knee NEURO: Patient is awake and alert. She is oriented to self and place but will not answer questions about time and situation. Uncooperative with neuro examination and therefore difficult to discern although emergency dispatcher II-XII appear to be grossly intact. Seen moving all 4 extremities but unable to assess strength. Unable to assess sensory function. Normal speech. MUSCULOSKELETAL: No obvious deformities. No significant tenderness. Normal ROM throughout. SPINE/BACK/SACRUM: Deferred until patient is placed in a room. ED Medical Decision Making - Lab Data Result diagrams: 02/06/21 07:52 02/06/21 07:52 Lab Results 02/06/21 02/06/21 02/06/21 Range/Units 07:52 07:52 07:52 WBC 6.4 (4.5-11.0) K/mm3 RBC 2.85 L (3.65-5.03) M/mm3 Hgb 8.3 L (10.1-14.3) gm/dl Hct 25.9 L (30.3-42.9) % MCV 91 (79-97) fl MCH 29 (28-32) pg MCHC 32 (30-34) % RDW 20.2 H (13.2-15.2) % Plt Count 85 L (140-440) K/mm3 Lymph % (Auto) 7.8 L (13.4-35.0) % [place] % (Auto) 12.0 H (0.0-7.3) % Eos % (Auto) 0.4 (0.0-4.3) % Baso % (Auto) 0.5 (0.0-1.8) % Lymph # (Auto) 0.5 L (1.2-5.4) K/mm3 [place] # (Auto) 0.8 (0.0-0.8) K/mm3 Eos # (Auto) 0.0 (0.0-0.4) K/mm3 Baso # (Auto) 0.0 (0.0-0.1) K/mm3 Seg Neutrophils % 79.3 H (40.0-70.0) % Seg Neutrophils # 5.1 (1.8-7.7) K/mm3 PT 21.9 H (12.2-14.9) Sec. INR 1.85 H (0.87-1.13) APTT 44.5 H (24.2-36.6) Sec. Sodium 136 L (137-145) mmol/L Potassium 4.5 (3.6-5.0) mmol/L Chloride 95.9 L (98-107) mmol/L Carbon Dioxide 24 (22-30) mmol/L Anion Gap 21 mmol/L BUN 51 H (7-17) mg/dL Creatinine 8.2 H (0.6-1.2) mg/dL Estimated GFR 6 ml/min BUN/Creatinine Ratio 6 % Glucose 103 H (65-100) mg/dL Calcium 8.6 (8.4-10.2) mg/dL Magnesium 2.00 (1.7-2.3) mg/dL Total Bilirubin 1.20 (0.1-1.2) mg/dL Direct Bilirubin 0.7 H (0-0.2) mg/dL Indirect Bilirubin 0.5 mg/dL AST 31 (5-40) units/L ALT 17 (7-56) units/L Alkaline Phosphatase 116 (35-129) units/L Troponin T 0.625 H* (0.00-0.029) ng/mL NT-Pro-B Natriuret Pep 87362 H (0-900) pg/mL Total Protein 6.9 (6.3-8.2) g/dL Albumin 3.1 L (3.9-5) g/dL Albumin/Globulin Ratio 0.8 % Triglycerides 86 (2-149) mg/dL Cholesterol 74 (50-199) mg/dL LDL Cholesterol Direct 24 L (50-130) mg/dL HDL Cholesterol 36 L (40-59) mg/dL Cholesterol/HDL Ratio 2.05 % - EKG Data -: EKG Interpreted by Me - EKG Data When compared to previous EKG there are: no significant change 02/06/21 09:32 Normal sinus rhythm. Left axis deviation. Intervals. No ectopy. There are T wave inversions noted in leads I, aVL, and V5-V6, unchanged from prior EKG - Radiology Data XR chest 1V ap INDICATION / CLINICAL INFORMATION: sob. COMPARISON: 01/05/2021 FINDINGS: SUPPORT DEVICES: None HEART /PULMONARY VASCULATURE: Unchanged. LUNGS / PLEURA: Small-moderate right pleural effusion and adjacent atelectasis are unchanged. Left basilar volume loss. No pneumothorax. IMPRESSION: Small- moderate right pleural effusion with adjacent volume loss, unchanged in appearance from prior study from 01/05/2021. Signer Name: Lewis Davis MD Signed: 02/06/2021 7:04 AM Workstation Name: [id number] CT HEAD WITHOUT CONTRAST INDICATION / CLINICAL INFORMATION: AMS came in by EMS.. TECHNIQUE: Axial imaging performed from the skull apex through the skull base without the use of contrast. Sagittal and coronal reformatted images. All CT scans at this location are performed using CT dose reduction for ALARA by means of automated exposure control. COMPARISON: 01/31/2020 FINDINGS: CEREBRAL PARENCHYMA: No significant abnormality. No acute territorial infarct. Minimal nonspecific chronic periventricular white matter changes are stable. No chronic infarct. HEMORRHAGE: None. EXTRA-AXIAL SPACES: Normal in size and morphology for the patient's age. VENTRICULAR SYSTEM: Normal in size and morphology for the patient's age. MIDLINE SHIFT OR HERNIATION: None. CEREBELLUM / BRAINSTEM: No significant abnormality. CALVARIUM: No significant abnormality. ORBITS: Normal as visualized. PARANASAL SINUSES / MASTOID AIR CELLS: Normal as visualized. SOFT TISSUES of HEAD: No significant abnormality. ADDITIONAL FINDINGS: None. IMPRESSION: No acute intracranial abnormality. No change since 01/30/2020. Signer Name: Torey Pierson Jr, MD Signed: 02/06/2021 7:36 AM Workstation Name: [id number] - Medical Decision Making 61-year-old female with very complex medical history including ESRD on HD, multiple prior strokes, and CHF/COPD on 2 L of home oxygen brought in by EMS for altered mental state and shortness of breath. Patient was very altered but was found to be hypoxic with an oxygen saturation in the 70s. Patient was not using her home O2 as prescribed. Patient's mental state improved drastically upon application of nonrebreather with improvement in her O2 sats to the high 90s to 100% after approximately 10 minutes. Fingerstick blood glucose according to EMS was 102. Other than the hypoxia her vitals were normal. On my assessment, the patient is on a stretcher in the hallway awaiting bed placement. She is in no acute distress. Lung auscultation reveals globally decreased air entry throughout. The patient is only answering some of my questions. She keeps repeating "my ass is hurting". Patient is uncooperative with neuro examination although she is oriented to self and place but will not answer questions about time and situation. emergency dispatcher II-XII appear to be grossly intact. Seen moving all 4 extremities but unable to assess strength. Unable to assess sensory function. Normal speech. Given that the patient is acutely alert and responsive now on 2 L nasal cannula, I suspect that her altered mental state earlier today was related to her hypoxia. Nevertheless, because I cannot confirm this because calls to the patient's family are unanswered at this time, we will perform broad work-up including a full set of labs, EKG, chest x-ray, and CT of the head. We will administer duo nebs and continue to monitor closely. At 7:35 AM, I was able to speak with the patient's daughter, Alicia over the telephone. She provides further history. She states that the patient does have baseline dementia and her baseline mental status is slightly confused but she only becomes very confused if her oxygen is low. She stated that the patient was in the hospital ([facility]) 1.5 weeks ago and was diagnosed with a possible heart attack, although she is unsure of the actual diagnosis and the results of the test that were conducted. She says the patient's clinical recruiter is Dr. Whitman but does not remember her electric motor analyst. She states that the patient always complains of her buttock area hurting and this is not abnormal for her. She stated that the patient recently has had no physical symptoms other than this morning when her oxygen was low and she was very confused. It appears as though she is back to her baseline mental state, although we will follow-up with the results of the diagnostic studies. When I went to reassess the patient at 7:48 PM, she is resting comfortably in the bed. She now is answering my questions and is A&O x 4. She is moving all 4 of her extremities equally with appropriate strength for her age although she is globally weak. She denies any physical complaints including recent chest pain, shortness of breath, cough, fever, abdominal pain, or any other physical complaints. The patient's blood pressure is in the 90s systolic. Review of the patient's prior medical records reveals that she has very labile blood pressure ranging anywhere from the 70s systolic to the 150s depending on when measured. We will continue to monitor closely and follow up diagnostic studies to determine appropriate disposition at that time. The patient's chest x-ray reveals cardiomegaly and unchanged right pleural effusion. CT of the head reveals no acute abnormalities. Labs have only partially resulted and reveal slightly elevated coagulation factors. We will follow up remaining results. All labs have resulted with the exception of the CBC at this time. The patient's creatinine is expectedly elevated at 8.2 with BUN of 51. She is noted to have elevated coagulation factors with INR of 1.8, although review of the patient's medical records reveals that it has ran high in the past, 1.2. Nonetheless, this finding would not explain the patient's presentation and it is much better explained by her nonadherence/not using home oxygen resulting in hy poxia. Given that the patient's altered mental status has resolved since she arrived to the emergency department and is satting normally on 2 L nasal cannula, it is unlikely that she will require admission given that she has no physical complaints. The patient's troponin is elevated at 0.625, however, this could be related to renal insufficiency and an episode of prolonged hypoxia. At 9:20 AM, I spoke with Dr. Mixon of cardiology regarding the case. He states that in the context of her having no complaints, and unchanged EKG from prior, he does not feel that this elevated troponin requires further work-up. CBC is resulted in reveals no significant leukocytosis or leukopenia. The patie nt's hemoglobin is at 8.3 which is her baseline. The patient wants to go home. I discussed with the patient's daughter who also agrees that the patient should go home. I informed them about the patient's elevated INR and recommended that she will follow up with her regular doctor in 1 to 2 days. She will be given strict return precautions. Critical Care Time: Yes (35 mins) Critical care time in (mins) excluding proc time.: 35 Critical care attestation.: If time is entered above; I have spent that time in minutes in the direct care of this critically ill patient, excluding procedure time. Critical care time was spent in the evaluation/assessment of critical hypoxemia and altered mental state as well as coordination of care between multiple specialists, review of medical records, request for outside medical records, and discussion with specialists. ED Disposition Clinical Impression: Hypoxemia, Altered mental state, Elevated INR, COPD (chronic obstructive pulmonary disease), Chronic systolic CHF (congestive heart failure) Disposition: DC-01 TO HOME OR SELFCARE Is pt being admited?: No Condition: Stable Instructions: Hypoxia, Hypoxemia, Heart Failure, Self Care, Chronic Obstructive Pulmonary Disease (ED) Additional Instructions: Please always keep home oxygen in place via nasal cannula. Labs revealed an elevated INR of 1.8. Please follow-up with your regular doctor in 1 to 2 days. Return to the emergency department should you develop chest pain, shortness of breath, or any other new concerns. Referrals: PRIMARY CARE, [Primary Care Provider] - 24 Hours
[2021-02-06] MEDS ORDERED: SODIUM CHLORIDE 0.9% 250ML 250 ML IV ONE (07:55)
--- NOTE | 2021-02-06 08:08 | XRay Report ---
XR chest 1V ap INDICATION / CLINICAL INFORMATION: sob. COMPARISON: 01/05/2021 FINDINGS: SUPPORT DEVICES: None HEART /PULMONARY VASCULATURE: Unchanged. LUNGS / PLEURA: Small-moderate right pleural effusion and adjacent atelectasis are unchanged. Left ba silar volume loss. No pneumothorax. IMPRESSION: Small-moderate right pleural effusion with adjacent volume loss, unchanged in appearance from prior s tudy from 01/05/2021. Signer Name: Lewis Davis MD Signed: 02/06/2021 8:04 AM Workstation Name: [id number]
[2021-02-06 08:18] LABS: Basophils % (Auto) 0.5 % (0.0-1.8); Eosinophils % (Auto) 0.4 % (0.0-4.3); Hematocrit 25.9 % (30.3-42.9); Hemoglobin 8.3 gm/dl (10.1-14.3); Lymphocytes # (Auto) 0.5 K/mm3 (1.2-5.4); Lymphocytes % (Auto) 7.8 % (13.4-35.0); Mean Corpuscular HGB Conc 32 % (30-34); Mean Corpuscular Volume 91 fl (79-97); Monocytes # (Auto) 0.8 K/mm3 (0.0-0.8); Red Blood Count 2.85 M/mm3 (3.65-5.03)
[2021-02-06 08:28] LABS: INR 1.85 (0.87-1.13)
[2021-02-06 08:29] LABS: Partial Thromboplastin Time 44.5 Sec. (24.2-36.6)
--- NOTE | 2021-02-06 08:40 | Cat Scan Report ---
CT HEAD WITHOUT CONTRAST INDICATION / CLINICAL INFORMATION: AMS came in by EMS.. TECHNIQUE: Axial imaging performed from the skull apex through the skull base without the use of cont rast. Sagittal and coronal reformatted images. All CT scans at this location are performed using CT dose reduction for ALARA by means of automated exposure control. COMPARISON: 01/31/2020 FINDINGS: CEREBRAL PARENCHYMA: No significant abnormality. No acute territorial infarct. Minimal nonspecific ch ronic periventricular white matter changes are stable. No chronic infarct. HEMORRHAGE: None. EXTRA-AXIAL SPACES: Normal in size and morphology for the patient's age. VENTRICULAR SYSTEM: Normal in size and morphology for the patient's age. MIDLINE SHIFT OR HERNIATION: None. CEREBELLUM / BRAINSTEM: No significant abnormality. CALVARIUM: No significant abnormality. ORBITS: Normal as visualized. PARANASAL SINUSES / MASTOID AIR CELLS: Normal as visualized. SOFT TISSUES of HEAD: No significant abnormality. ADDITIONAL FINDINGS: None. IMPRESSION: No acute intracranial abnormality. No change since 01/30/2020. Signer Name: Torey Pierson Jr, MD Signed: 02/06/2021 8:36 AM Workstation Name: [id number]
[2021-02-06 08:44] LABS: Albumin 3.1 g/dL (3.9-5); Bilirubin,Direct 0.7 mg/dL (0-0.2); Calcium 8.6 mg/dL (8.4-10.2)
[2021-02-06 09:21] LABS: Chol/HDL Ratio 2.05 %
[2021-02-06 09:41] LABS: Platelet Count 85 K/mm3 (140-440); Red Cell Distribution Width 20.2 % (13.2-15.2)
[2021-02-06 10:45] VITALS: BP 113/75
--- NOTE | 2021-02-07 11:13 | Electrocardiograph Report ---
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
== END 2021-02-06 10:45 | disposition home or self-care (01) ==
LOC: ED 05:50
DX: I13.2 Hypertensive heart and chronic kidney disease with heart failure and with stage 5 chronic kidney disease, or end stage renal disease (principal); N18.6 End stage renal disease; E11.22 Type 2 diabetes mellitus with diabetic chronic kidney disease; I50.9 Heart failure, unspecified; J44.9 Chronic obstructive pulmonary disease, unspecified; R09.02 Hypoxemia; R79.1 Abnormal coagulation profile; R41.82 Altered mental status, unspecified; Z79.899 Other long term (current) drug therapy; Z87.891 Personal history of nicotine dependence; Z98.890 Other specified postprocedural states; Z86.73 Personal history of transient ischemic attack (TIA), and cerebral infarction without residual deficits; Z86.69 Personal history of other diseases of the nervous system and sense organs
CPT/HCPCS: 36415; 70450; 71045; 80048; 80061; 80076; 83735; 83880; 84484; 85025; 85610; 85730; 93005; 94640

== ENCOUNTER 2021-02-17 18:11 | Emergency (ER) | payer MEDICARE ==
--- NOTE | 2021-02-17 19:56 | Emergency Department Report ---
ED General Adult HPI - General Chief complaint: Nausea/Vomiting/Diarrhea Stated complaint: NEEDS DIALYSIS Time Seen by Provider: 02/17/21 19:03 Source: EMS Mode of arrival: Stretcher Limitations: No Limitations - History of Present Illness Initial comments: The patient presents to the emergency department chief complaint of shortness of breath that has been present for the last couple of days. Patient states that she receives dialysis on Tuesdays, , Saturdays. Patient states that she has not gone to dialysis for last 2 therapies because of diarrhea. Patient states her shortness of breath has become worse especially with movement. She denies chest pain or abdominal pain. Patient is in no acute distress physically or from a respiratory standpoint during my history -: Gradual Severity scale (0 -10): 1 Quality: aching Consistency: constant Improves with: none Worsens with: none Associated Symptoms: denies other symptoms Treatments Prior to Arrival: none - Related Data Home Medications Medication Instructions Recorded Confirmed Last Taken Fluticasone [Flonase] 1 spray NS QDAY PRN 12/01/19 01/06/21 01/18/20 Albuterol Sulfate [Proair 90 mcg IH Q6HR PRN 05/17/20 01/06/21 Unknown Digihaler] Previous Rx's Medication Instructions Recorded Last Taken Type Calcium Carbonate [Tums 500MG CHEW] 750 mg PO QHS #30 02/02/20 02/20/20 Rx Gabapentin [Neurontin] 800 mg PO TID #90 tab 02/02/20 02/20/20 Rx Mirtazapine [Remeron 15mg TAB] 15 mg PO QHS #30 tab 02/02/20 02/20/20 Rx Acetaminophen [Acetaminophen TAB] 650 mg PO Q4H PRN tablet 04/21/20 Unknown Rx Aspirin EC [Halfprin EC] 81 mg PO QDAY #30 tablet 04/21/20 Unknown Rx AtorvaSTATin [Lipitor] 40 mg PO QHS #30 tablet 04/21/20 Unknown Rx Calcium Acetate [Phoslo] 2,001 mg PO TIDWM #30 capsule 04/21/20 Unknown Rx Clopidogrel [Plavix] 75 mg PO QDAY #30 tab 04/21/20 Unknown Rx Epoetin Hiro 20,000 Unit [Procrit] 20,000 unit IV GREY vial 04/21/20 Unknown Rx Loperamide [Imodium] 2 mg PO Q4HR PRN #24 capsule 04/21/20 Unknown Rx Losartan [Cozaar] 50 mg PO QDAY #30 tablet 04/21/20 Unknown Rx Metoprolol [Lopressor TAB] 12.5 mg PO BID #60 tablet 04/21/20 Unknown Rx Torsemide [Demadex] 20 mg PO QDAY tablet 04/21/20 Unknown Rx calcitrioL [Rocaltrol] 1 mcg PO QDAY #30 cap 04/21/20 Unknown Rx hydrALAZINE [Apresoline TAB] 50 mg PO BID #120 tablet 04/21/20 Unknown Rx levETIRAcetam [Keppra TAB] 500 mg PO BID #60 tablet 04/21/20 Unknown Rx Azithromycin [Zithromax Z-TIMOTHY] 250 mg PO DAILY #6 tab 05/18/20 Unknown Rx Ondansetron [Zofran ODT TAB] 8 mg PO Q8HR PRN #10 05/18/20 Unknown Rx oxyCODONE /ACETAMINOPHEN [Percocet 1 tab PO Q6H PRN #10 tablet 05/18/20 Unknown Rx 5/325 mg] Allergies Allergy/AdvReac Type Severity Reaction Status Date / Time No Known Allergies Allergy Verified 02/06/21 07:54 ED Review of Systems ROS: Stated complaint: NEEDS DIALYSIS Other details as noted in HPI Comment: All other systems reviewed and negative Constitutional: denies: chills, fever Eyes: denies: eye pain, eye discharge, vision change ENT: denies: ear pain, throat pain Respiratory: shortness of breath. denies: cough, wheezing Cardiovascular: denies: chest pain, palpitations Endocrine: no symptoms reported Gastrointestinal: denies: abdominal pain, nausea, diarrhea Genitourinary: denies: urgency, dysuria, discharge Musculoskeletal: denies: back pain, joint swelling, arthralgia Skin: denies: rash, lesions Neurological: denies: headache, weakness, paresthesias Psychiatric: denies: anxiety, depression Hematological/Lymphatic: denies: easy bleeding, easy bruising ED Past Medical Hx - Past Medical History Previous Medical History?: Yes Hx Hypertension: Yes Hx CVA: Yes (x4, 6TIAs) Hx Heart Attack/AMI: Yes Hx Congestive Heart Failure: Yes Hx Diabetes: Yes Hx Liver Disease: No Hx Renal Disease: Yes (dialysis 2015, Thur, and Sat) Hx Sickle Cell Disease: No Hx Arthritis: Yes Hx Headaches / Migraines: Yes Hx Seizures: Yes Hx Asthma: Yes Hx COPD: Yes Hx HIV: No - Surgical History Past Surgical History?: Yes Hx Coronary Stent: Yes Hx Pacemaker: No Hx Internal Defibrillator: No Hx Breast Surgery: Yes (breast reduction 1979) Additional Surgical History: breast reduction 1979, av fistula left arm - Social History Smoking Status: Former Smoker - Medications Home Medications: Home Medications Medication Instructions Recorded Confirmed Last Taken Type Fluticasone [Flonase] 1 spray NS QDAY PRN 12/01/19 01/06/21 01/18/20 History Calcium Carbonate [Tums 500MG CHEW] 750 mg PO QHS #30 02/02/20 01/06/21 02/20/20 Rx Gabapentin [Neurontin] 800 mg PO TID #90 tab 02/02/20 01/06/21 02/20/20 Rx Mirtazapine [Remeron 15mg TAB] 15 mg PO QHS #30 tab 02/02/20 01/06/21 02/20/20 Rx Acetaminophen [Acetaminophen TAB] 650 mg PO Q4H PRN tablet 04/21/20 01/06/21 Unknown Rx Aspirin EC [Halfprin EC] 81 mg PO QDAY #30 tablet 04/21/20 01/06/21 Unknown Rx AtorvaSTATin [Lipitor] 40 mg PO QHS #30 tablet 04/21/20 01/06/21 Unknown Rx Calcium Acetate [Phoslo] 2,001 mg PO TIDWM #30 capsule 04/21/20 01/06/21 Unknown Rx Clopidogrel [Plavix] 75 mg PO QDAY #30 tab 04/21/20 01/06/21 Unknown Rx Epoetin Hiro 20,000 Unit [Procrit] 20,000 unit IV GREY vial 04/21/20 01/06/21 Unknown Rx Loperamide [Imodium] 2 mg PO Q4HR PRN #24 capsule 04/21/20 01/06/21 Unknown Rx Losartan [Cozaar] 50 mg PO QDAY #30 tablet 04/21/20 01/06/21 Unknown Rx Metoprolol [Lopressor TAB] 12.5 mg PO BID #60 tablet 04/21/20 01/06/21 Unknown Rx Torsemide [Demadex] 20 mg PO QDAY tablet 04/21/20 01/06/21 Unknown Rx calcitrioL [Rocaltrol] 1 mcg PO QDAY #30 cap 04/21/20 01/06/21 Unknown Rx hydrALAZINE [Apresoline TAB] 50 mg PO BID #120 tablet 04/21/20 01/06/21 Unknown Rx levETIRAcetam [Keppra TAB] 500 mg PO BID #60 tablet 04/21/20 01/06/21 Unknown Rx Albuterol Sulfate [Proair 90 mcg IH Q6HR PRN 05/17/20 01/06/21 Unknown History Digihaler] Azithromycin [Zithromax Z-TIMOTHY] 250 mg PO DAILY #6 tab 05/18/20 01/06/21 Unknown Rx Ondansetron [Zofran ODT TAB] 8 mg PO Q8HR PRN #10 05/18/20 01/06/21 Unknown Rx oxyCODONE /ACETAMINOPHEN [Percocet 1 tab PO Q6H PRN #10 tablet 05/18/20 01/06/21 Unknown Rx 5/325 mg] ED Physical Exam - General Limitations: No Limitations General appearance: alert, in no apparent distress - Head Head exam: Present: atraumatic, normocephalic - Eye Eye exam: Present: normal appearance, PERRL, EOMI - ENT ENT exam: Present: mucous membranes moist - Neck Neck exam: Present: normal inspection - Respiratory Respiratory exam: Present: rales. Absent: respiratory distress - Cardiovascular Cardiovascular Exam: Present: regular rate, normal rhythm. Absent: systolic murmur, diastolic murmur, rubs, gallop - GI/Abdominal GI/Abdominal exam: Present: soft, normal bowel sounds. Absent: distended, tenderness - Extremities Exam Extremities exam: Present: normal inspection - Back Exam Back exam: Present: normal inspection - Neurological Exam Neurological exam: Present: alert, oriented X3, CN II-XII intact. Absent: motor sensory deficit - Psychiatric Psychiatric exam: Present: normal affect, normal mood - Skin Skin exam: Present: warm, dry, intact, normal color. Absent: rash ED Course Vital Signs 02/17/21 02/17/21 02/17/21 19:23 19:25 19:43 Temperature 98.2 F 98.3 F Pulse Rate 83 84 81 Respiratory 10 L 13 19 Rate Blood Pressure Blood Pressure 137/70 137/57 [Right] O2 Sat by Pulse 100 100 100 Oximetry 02/17/21 02/17/21 21:00 22:00 Temperature Pulse Rate 80 83 Respiratory 17 14 Rate Blood Pressure 137/62 151/70 Blood Pressure [Right] O2 Sat by Pulse 100 100 Oximetry ED Medical Decision Making - Lab Data Result diagrams: 02/17/21 19:47 02/17/21 19:47 Lab Results 02/17/21 02/17/21 02/17/21 Range/Units 19:47 19:47 19:47 WBC 2.5 L (4.5-11.0) K/mm3 RBC 2.72 L (3.65-5.03) M/mm3 Hgb 7.5 L (10.1-14.3) gm/dl Hct 24.2 L (30.3-42.9) % MCV 89 (79-97) fl MCH 28 (28-32) pg MCHC 31 (30-34) % RDW 20.2 H (13.2-15.2) % Plt Count 87 L (140-440) K/mm3 Lymph % (Auto) 13.4 (13.4-35.0) % [place] % (Auto) 11.1 H (0.0-7.3) % Eos % (Auto) 1.7 (0.0-4.3) % Baso % (Auto) 1.0 (0.0-1.8) % Lymph # (Auto) 0.3 L (1.2-5.4) K/mm3 [place] # (Auto) 0.3 (0.0-0.8) K/mm3 Eos # (Auto) 0.0 (0.0-0.4) K/mm3 Baso # (Auto) 0.0 (0.0-0.1) K/mm3 Seg Neutrophils % 72.8 H (40.0-70.0) % Seg Neutrophils # 1.8 (1.8-7.7) K/mm3 PT 17.0 H (12.2-14.9) Sec. INR 1.33 H (0.87-1.13) APTT 35.9 (24.2-36.6) Sec. Sodium 139 (137-145) mmol/L Potassium 4.2 (3.6-5.0) mmol/L Chloride 99.7 (98-107) mmol/L Carbon Dioxide 22 (22-30) mmol/L Anion Gap 22 mmol/L BUN 52 H (7-17) mg/dL Creatinine 11.3 H (0.6-1.2) mg/dL Estimated GFR 4 ml/min BUN/Creatinine Ratio 5 % Glucose 90 (65-100) mg/dL Calcium 7.5 L (8.4-10.2) mg/dL Magnesium 2.00 (1.7-2.3) mg/dL Total Bilirubin 0.60 (0.1-1.2) mg/dL AST 12 (5-40) units/L ALT 5 L (7-56) units/L Alkaline Phosphatase 98 (35-129) units/L Total Protein 6.4 (6.3-8.2) g/dL Albumin 2.9 L (3.9-5) g/dL Albumin/Globulin Ratio 0.8 % - EKG Data -: EKG Interpreted by Pa EKG shows normal: sinus rhythm - EKG Data Interpretation: other (Nonspecific T wave abnormalities) - Radiology Data Radiology results: report reviewed - Medical Decision Making Spoke with Dr. Hensley who is the hand hide stretcher on-call and the patient was rev iewed. Due to the patient having normal potassium levels and not in volume overload the patient can be discharged to have dialysis in the morning. The patient initially was supposed to come to the emergency department just to get labs because she had missed dialysis for total of 5 days. Discussed this plan of care with the patient who states she will follow-up at the dialysis treatment center tomorrow as discussed Critical care attestation.: If time is entered above; I have spent that time in minutes in the direct care of this critically ill patient, excluding procedure time. ED Disposition Clinical Impression: End stage renal disease on dialysis, ESRD needing dialysis Disposition: DC-01 TO HOME OR SELFCARE Is pt being admited?: No Does the pt Need Aspirin: No Condition: Stable Instructions: Dialysis Additional Instructions: return if worse Referrals: PRIMARY CARE, [Primary Care Provider] - 3-5 Days GILDA HENSLEY MD [Staff Physician] - 3-5 Days HAYLEE CUELLO MD [Staff Physician] - 3-5 Days Time of Disposition: 23:06
--- NOTE | 2021-02-17 19:58 | XRay Report ---
CHEST 1 VIEW 02/17/2021 6:50 PM INDICATION / CLINICAL INFORMATION: Shortness of breath. Nausea, vomiting and diarrhea for couple of m onths. COMPARISON: 02/06/21. FINDINGS: SUPPORT DEVICES: None. HEART / MEDIASTINUM: Moderate cardiomegaly is stable. There is mild prominence of the central pulmona ry vessels. LUNGS / PLEURA: Interstitial lung markings are diffusely increased. Mild bibasilar pleuroparenchymal disease is unchanged on the right and mildly increased on the left. No pneumothorax. ADDITIONAL FINDINGS: No significant additional findings. IMPRESSION: Mild congestive heart failure has shown mild increase. Signer Name: Heladio Jackson MD Signed: 02/17/2021 7:54 PM Workstation Name: [id number]
[2021-02-17 20:17] LABS: Eosinophils % (Auto) 1.7 % (0.0-4.3); Hematocrit 24.2 % (30.3-42.9); Hemoglobin 7.5 gm/dl (10.1-14.3); Lymphocytes # (Auto) 0.3 K/mm3 (1.2-5.4); Lymphocytes % (Auto) 13.4 % (13.4-35.0); Mean Corpuscular HGB Conc 31 % (30-34); Mean Corpuscular Volume 89 fl (79-97); Monocytes # (Auto) 0.3 K/mm3 (0.0-0.8); Monocytes % (Auto) 11.1 % (0.0-7.3); Red Blood Count 2.72 M/mm3 (3.65-5.03)
[2021-02-17 20:26] LABS: INR 1.33 (0.87-1.13); Platelet Count 87 K/mm3 (140-440); Red Cell Distribution Width 20.2 % (13.2-15.2)
[2021-02-17 20:27] LABS: Partial Thromboplastin Time 35.9 Sec. (24.2-36.6)
[2021-02-17 20:32] LABS: Albumin 2.9 g/dL (3.9-5); Calcium 7.5 mg/dL (8.4-10.2)
[2021-02-18 00:04] VITALS: BP 141/56
--- NOTE | 2021-02-20 17:46 | Electrocardiograph Report ---
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
== END 2021-02-18 03:35 | disposition home or self-care (01) ==
LOC: ED 18:11
DX: I13.2 Hypertensive heart and chronic kidney disease with heart failure and with stage 5 chronic kidney disease, or end stage renal disease (principal); I50.9 Heart failure, unspecified; N18.6 End stage renal disease; E11.22 Type 2 diabetes mellitus with diabetic chronic kidney disease; I25.2 Old myocardial infarction; J44.9 Chronic obstructive pulmonary disease, unspecified; Z99.2 Dependence on renal dialysis; Z79.899 Other long term (current) drug therapy; Z86.73 Personal history of transient ischemic attack (TIA), and cerebral infarction without residual deficits; Z86.69 Personal history of other diseases of the nervous system and sense organs; Z87.891 Personal history of nicotine dependence; Z98.890 Other specified postprocedural states
CPT/HCPCS: 36415; 71045; 80053; 83735; 85025; 85610; 85730; 93005

== ENCOUNTER 2021-02-28 17:27 | Inpatient (IN) | payer MEDICARE ==
--- NOTE | 2021-02-28 18:01 | Emergency Department Report ---
ED General Adult HPI - General Chief complaint: Dyspnea/Respdistress Stated complaint: MIGUEL PUI?: No Time Seen by Provider: 02/28/21 17:47 Source: patient, EMS ( EMS documentation not available at time of chart dictation ), RN notes reviewed, old records reviewed Mode of arrival: Stretcher Limitations: No Limitations - History of Present Illness Initial comments: The patient is a 61-year-old female. I have evaluated the patient in the past. Her magnetic grinder operator is Dr. Batista. Her past medical history includes end-stage renal disease, on hemodialysis, Saturday, , Saturday, CHF, hypertension, diabetes, heart disease, seizure, stroke, COPD/respiratory failure, on chronic home oxygen. She also has a history of ascites. The patient states she was last dialyzed on Saturday. She states she did not receive dialysis today. She presents to the ER today with a chief complaint of abdominal distention, shortness of breath, and reporting that she has low blood counts. She presented today for hemodialysis, and was referred to this emergency room. The patient denies headache, neck pain, chest pain. She denies hematemesis. She denies dysuria. She typically does not produce urine, but believes that she has recently been producing urine. Positive abdominal distention. She thinks she may have had bloody stool, but she is not certain. Endorses nonspecific diarrhea for 2 months. Reports that an outpatient primary care doctor put her on antibiotics for diarrhea a few weeks ago. Does not recall the name of the antibiotic. States no objections to receiving packed red blood cell transfusion. Her sympto ms are constant. They decreased with rest and with paracentesis. They increased with physical exertion. Reports she received her Covid vaccination. Denies Covid symptomatology. -: Gradual, days(s) Location: abdomen Radiation: non-radiation Consistency: constant Improves with: other Worsens with: other - Related Data Home Medications Medication Instructions Recorded Confirmed Last Taken Fluticasone [Flonase] 1 spray NS QDAY PRN 12/01/19 01/06/21 01/18/20 Albuterol Sulfate [Proair 90 mcg IH Q6HR PRN 05/17/20 01/06/21 Unknown Digihaler] Previous Rx's Medication Instructions Recorded Last Taken Type Calcium Carbonate [Tums 500MG CHEW] 750 mg PO QHS #30 02/02/20 02/20/20 Rx Gabapentin [Neurontin] 800 mg PO TID #90 tab 02/02/20 02/20/20 Rx Mirtazapine [Remeron 15mg TAB] 15 mg PO QHS #30 tab 02/02/20 02/20/20 Rx Acetaminophen [Acetaminophen TAB] 650 mg PO Q4H PRN tablet 04/21/20 Unknown Rx Aspirin EC [Halfprin EC] 81 mg PO QDAY #30 tablet 04/21/20 Unknown Rx AtorvaSTATin [Lipitor] 40 mg PO QHS #30 tablet 04/21/20 Unknown Rx Calcium Acetate [Phoslo] 2,001 mg PO TIDWM #30 capsule 04/21/20 Unknown Rx Clopidogrel [Plavix] 75 mg PO QDAY #30 tab 04/21/20 Unknown Rx Epoetin Hiro 20,000 Unit [Procrit] 20,000 unit IV GREY vial 04/21/20 Unknown Rx Loperamide [Imodium] 2 mg PO Q4HR PRN #24 capsule 04/21/20 Unknown Rx Losartan [Cozaar] 50 mg PO QDAY #30 tablet 04/21/20 Unknown Rx Metoprolol [Lopressor TAB] 12.5 mg PO BID #60 tablet 04/21/20 Unknown Rx Torsemide [Demadex] 20 mg PO QDAY tablet 04/21/20 Unknown Rx calcitrioL [Rocaltrol] 1 mcg PO QDAY #30 cap 04/21/20 Unknown Rx hydrALAZINE [Apresoline TAB] 50 mg PO BID #120 tablet 04/21/20 Unknown Rx levETIRAcetam [Keppra TAB] 500 mg PO BID #60 tablet 04/21/20 Unknown Rx Azithromycin [Zithromax Z-TIMOTHY] 250 mg PO DAILY #6 tab 05/18/20 Unknown Rx Ondansetron [Zofran ODT TAB] 8 mg PO Q8HR PRN #10 05/18/20 Unknown Rx oxyCODONE /ACETAMINOPHEN [Percocet 1 tab PO Q6H PRN #10 tablet 05/18/20 Unknown Rx 5/325 mg] Allergies Allergy/AdvReac Type Severity Reaction Status Date / Time No Known Allergies Allergy Verified 02/06/21 07:54 ED Review of Systems ROS: Stated complaint: MIGUEL Other details as noted in HPI Constitutional: malaise, weakness. denies: fever Eyes: denies: eye discharge ENT: congestion. denies: epistaxis Respiratory: shortness of breath, SOB with exertion, SOB at rest Cardiovascular: edema. denies: chest pain Gastrointestinal: denies: nausea, vomiting, diarrhea, hematemesis, melena Genitourinary: denies: dysuria Musculoskeletal: myalgia Neurological: weakness Hematological/Lymphatic: denies: easy bleeding ED Past Medical Hx - Past Medical History Previous Medical History?: Yes Hx Hypertension: Yes Hx CVA: Yes (x4, 6TIAs) Hx Heart Attack/AMI: Yes Hx Congestive Heart Failure: Yes Hx Diabetes: Yes Hx Liver Disease: No Hx Renal Disease: Yes (dialysis 2015, , and Sat) Hx Sickle Cell Disease: No Hx Arthritis: Yes Hx Headaches / Migraines: Yes Hx Seizures: Yes Hx Asthma: Yes Hx COPD: Yes Hx HIV: No - Surgical History Past Surgical History?: Yes Hx Coronary Stent: Yes Hx Pacemaker: No Hx Internal Defibrillator: No Hx Breast Surgery: Yes (breast reduction 1979) Additional Surgical History: breast reduction 1979, av fistula left arm - Social History Smoking Status: Never Smoker Substance Use Type: None - Medications Home Medications: Home Medications Medication Instructions Recorded Confirmed Last Taken Type Fluticasone [Flonase] 1 spray NS QDAY PRN 12/01/19 01/06/21 01/18/20 History Calcium Carbonate [Tums 500MG CHEW] 750 mg PO QHS #30 02/02/20 01/06/21 02/20/20 Rx Gabapentin [Neurontin] 800 mg PO TID #90 tab 02/02/20 01/06/21 02/20/20 Rx Mirtazapine [Remeron 15mg TAB] 15 mg PO QHS #30 tab 02/02/20 01/06/21 02/20/20 Rx Acetaminophen [Acetaminophen TAB] 650 mg PO Q4H PRN tablet 04/21/20 01/06/21 Unknown Rx Aspirin EC [Halfprin EC] 81 mg PO QDAY #30 tablet 04/21/20 01/06/21 Unknown Rx AtorvaSTATin [Lipitor] 40 mg PO QHS #30 tablet 04/21/20 01/06/21 Unknown Rx Calcium Acetate [Phoslo] 2,001 mg PO TIDWM #30 capsule 04/21/20 01/06/21 Unknown Rx Clopidogrel [Plavix] 75 mg PO QDAY #30 tab 04/21/20 01/06/21 Unknown Rx Epoetin Hiro 20,000 Unit [Procrit] 20,000 unit IV GREY vial 04/21/20 01/06/21 Unknown Rx Loperamide [Imodium] 2 mg PO Q4HR PRN #24 capsule 04/21/20 01/06/21 Unknown Rx Losartan [Cozaar] 50 mg PO QDAY #30 tablet 04/21/20 01/06/21 Unknown Rx Metoprolol [Lopressor TAB] 12.5 mg PO BID #60 tablet 04/21/20 01/06/21 Unknown Rx Torsemide [Demadex] 20 mg PO QDAY tablet 04/21/20 01/06/21 Unknown Rx calcitrioL [Rocaltrol] 1 mcg PO QDAY #30 cap 04/21/20 01/06/21 Unknown Rx hydrALAZINE [Apresoline TAB] 50 mg PO BID #120 tablet 04/21/20 01/06/21 Unknown Rx levETIRAcetam [Keppra TAB] 500 mg PO BID #60 tablet 04/21/20 01/06/21 Unknown Rx Albuterol Sulfate [Proair 90 mcg IH Q6HR PRN 05/17/20 01/06/21 Unknown History Digihaler] Azithromycin [Zithromax Z-TIMOTHY] 250 mg PO DAILY #6 tab 05/18/20 01/06/21 Unknown Rx Ondansetron [Zofran ODT TAB] 8 mg PO Q8HR PRN #10 05/18/20 01/06/21 Unknown Rx oxyCODONE /ACETAMINOPHEN [Percocet 1 tab PO Q6H PRN #10 tablet 05/18/20 01/06/21 Unknown Rx 5/325 mg] ED Physical Exam - General Limitations: Physical Limitation General appearance: alert, anxious, obese - Head Head exam: Present: atraumatic, normocephalic - Eye Eye exam: Present: normal appearance, EOMI. Absent: nystagmus - ENT ENT exam: Present: normal exam, normal orophraynx, mucous membranes moist, normal external ear exam - Neck Neck exam: Present: normal inspection, full ROM. Absent: tenderness, meningismus - Respiratory Respiratory exam: Present: respiratory distress, accessory muscle use. Absent: stridor - Cardiovascular Cardiovascular Exam: Present: regular rate, normal rhythm, normal heart sounds. Absent: bradycardia, tachycardia, irregular rhythm, systolic murmur, diastolic murmur, rubs, gallop - GI/Abdominal GI/Abdominal exam: Present: soft, distended. Absent: tenderness, guarding, rebound, rigid, pulsatile mass - Rectal Rectal exam: Present: normal inspection, normal rectal tone, heme (-) stool, other (Chaperoned by automotive service director Refugio Pennington). Absent: heme (+) stool, black stool - Extremities Exam Extremities exam: Present: normal inspection (Left upper extremity fistula, without redness, pus or streaking, and appropriate thrill), full ROM, pedal edema (1+ edema in the bilateral lower extremities), other (2+ pulses noted in the bilateral upper and lower extremities. There is no palpable cord. negative Homans sign. Muscular compartments are soft. The pelvis is stable.). Absent: calf tenderness - Back Exam Back exam: Present: normal inspection. Absent: tenderness, CVA tenderness (R), CVA tenderness (L), paraspinal tenderness, vertebral tenderness - Neurological Exam Neurological exam: Present: alert, oriented X3, other (No facial droop. Tongue midline. Extraocular movements intact bilaterally. Facial sensation intact to light touch in V1, V2, V3 distribution bilaterally. 5 and a 5 strength in 4 extremities. Sensation intact to light touch in 4 extremities.). Absent: motor sensory deficit - Psychiatric Psychiatric exam: Present: anxious - Skin Skin exam: Present: warm, dry, intact, normal color. Absent: rash ED Course Vital Signs 02/28/21 02/28/21 17:32 17:41 Temperature 97.6 F Pulse Rate 78 80 Respiratory 24 20 Rate Blood Pressure 151/69 [Right] O2 Sat by Pulse 94 100 Oximetry - Reevaluation(s) Reevaluation #1: 02/28/21 19:03 Differential diagnosis, including but not limited to: Anemia of chronic disease, congestive heart failure, chronic COPD, acute ascites, acute fluid overload, electrolyte derangement, azotemia, uremia, hyperkalemia Assessment and plan: 61-year-old female with acute abdominal distention, nontender, with a known history of ascites, who is symptomatically short of breath, and will require urgent, but not emergent paracentesis. Her examination is not suggestive of spontaneous bacterial peritonitis. She is on supplemental oxygen, 4 L at baseline. She is in mild to moderate respiratory distress. X-ray of the chest reviewed and appreciated. Obtain CBC, type and screen, and appropriate laboratory studies. EKG essentially unchanged from prior. I recommended admission to the medical service once initial diagnostics have been resulted. Patient has no objections to receiving packed red blood cell transfusion. All questions answered at this time. Patient amenable to admission. Will discuss with her magnetic grinder operator once her initial diagnostics result. We will arrange admission to the medical servic e once initial diagnostics have resulted. 02/28/21 20:46 Laboratory studies demonstrate baseline microcytic anemia. Chemistry reviewed and appreciated. Patient does not require emergent hemodialysis, or emergent packed red blood cell transfusion. X-ray of the chest is reviewed and appreciated. Discussed patient's history, physical, laboratory studies, physical exam findings, and overall clinical impression with nephrology on-call for the patient's group, Dr. Veras Nephrology will follow in consultation, and make arrangements for hemodialysis. Patient will also require inpatient paracentesis. Hospital physician will be paged to arrange admission to the internal medicine service. Reevaluation #2: 02/28/21 21:19 Dr Maddy Dean to admit to [facility] He requests potassium repletion. 02/28/21 21:33 ED Medical Decision Making - Lab Data Result diagrams: 02/28/21 18:35 02/28/21 18:35 Vital Signs 02/28/21 02/28/21 17:32 17:41 Temperature 97.6 F Pulse Rate 78 80 Respiratory 24 20 Rate Blood Pressure 151/69 [Right] O2 Sat by Pulse 94 100 Oximetry Lab Results 02/28/21 02/28/21 02/28/21 Range/Units 18:35 18:35 18:35 WBC 2.0 L (4.5-11.0) K/mm3 RBC 2.63 L (3.65-5.03) M/mm3 Hgb 7.3 L (10.1-14.3) gm/dl Hct 23.7 L (30.3-42.9) % MCV 90 (79-97) fl MCH 28 (28-32) pg MCHC 31 (30-34) % RDW 21.4 H (13.2-15.2) % Plt Count 59 L (140-440) K/mm3 Add Manual Diff Complete Total Counted 100 Seg Neuts % (Manual) 73.0 H (40.0-70.0) % Lymphocytes % (Manual) 21.0 (13.4-35.0) % Monocytes % (Manual) 5.0 (0.0-7.3) % Eosinophils % (Manual) 1.0 (0.0-4.3) % Nucleated RBC % Not Reportable Seg Neutrophils # Man 1.5 L (1.8-7.7) K/mm3 Band Neutrophils # 0.0 K/mm3 Lymphocytes # (Manual) 0.4 L (1.2-5.4) K/mm3 Abs React Lymphs (Man) 0.0 K/mm3 Monocytes # (Manual) 0.1 (0.0-0.8) K/mm3 Eosinophils # (Manual) 0.0 (0.0-0.4) K/mm3 Basophils # (Manual) 0.0 (0.0-0.1) K/mm3 Metamyelocytes # 0.0 K/mm3 Myelocytes # 0.0 K/mm3 Promyelocytes # 0.0 K/mm3 Blast Cells # 0.0 K/mm3 WBC Morphology Not Reportable Hypersegmented Neuts Not Reportable Hyposegmented Neuts Not Reportable Hypogranular Neuts Not Reportable Smudge Cells Not Reportable Toxic Granulation Not Reportable Toxic Vacuolation Not Reportable Dohle Bodies Not Reportable Pelger-Huet Anomaly Not Reportable Graciela Rods Not Reportable Platelet Estimate Consistent w auto Clumped Platelets Not Reportable Plt Clumps, EDTA Not Reportable Large Platelets Not Reportable Giant Platelets Not Reportable Platelet Satelliting Not Reportable Plt Morphology Comment Not Reportable RBC Morphology Not Reportable Dimorphic RBCs Not Reportable Polychromasia Not Reportable Hypochromasia Not Reportable Poikilocytosis Not Reportable Anisocytosis 1+ Microcytosis Not Reportable Macrocytosis Not Reportable Spherocytes Not Reportable Pappenheimer Bodies Not Reportable Sickle Cells Not Reportable Target Cells Not Reportable Tear Drop Cells Not Reportable Ovalocytes Not Reportable Helmet Cells Not Reportable [place] Bodies Not Reportable [place] Rings Not Reportable [place] Cells Not Reportable Bite Cells Not Reportable Crenated Cell Not Reportable Elliptocytes Not Reportable Acanthocytes (Spur) Not Reportable Rouleaux Not Reportable Hemoglobin C Crystals Not Reportable Schistocytes Not Reportable Malaria parasites Not Reportable Enrrique Bodies Not Reportable Hem Pathologist Commnt No PT 15.8 H (12.2-14.9) Sec. INR 1.21 H (0.87-1.13) Sodium 141 (137-145) mmol/L Potassium 3.2 L (3.6-5.0) mmol/L Chloride 97.0 L (98-107) mmol/L Carbon Dioxide 33 H (22-30) mmol/L Anion Gap 14 mmol/L BUN 18 H (7-17) mg/dL Creatinine 6.2 H (0.6-1.2) mg/dL Estimated GFR 8 ml/min BUN/Creatinine Ratio 3 % Glucose 78 (65-100) mg/dL Calcium 8.6 (8.4-10.2) mg/dL Magnesium 2.00 (1.7-2.3) mg/dL Total Bilirubin 0.80 (0.1-1.2) mg/dL AST 12 (5-40) units/L ALT < 5 L (7-56) units/L Alkaline Phosphatase 87 (35-129) units/L Total Creatine Kinase 38 (30-135) units/L NT-Pro-B Natriuret Pep > 35172 H (0-900) pg/mL Total Protein 6.9 (6.3-8.2) g/dL Albumin 3.6 L (3.9-5) g/dL Albumin/Globulin Ratio 1.1 % Blood Type 02/28/21 Range/Units 18:35 WBC (4.5-11.0) K/mm3 RBC (3.65-5.03) M/mm3 Hgb (10.1-14.3) gm/dl Hct (30.3-42.9) % MCV (79-97) fl MCH (28-32) pg MCHC (30-34) % RDW (13.2-15.2) % Plt Count (140-440) K/mm3 Add Manual Diff Total Counted Seg Neuts % (Manual) (40.0-70.0) % Lymphocytes % (Manual) (13.4-35.0) % Monocytes % (Manual) (0.0-7.3) % Eosinophils % (Manual) (0.0-4.3) % Nucleated RBC % Seg Neutrophils # Man (1.8-7.7) K/mm3 Band Neutrophils # K/mm3 Lymphocytes # (Manual) (1.2-5.4) K/mm3 Abs React Lymphs (Man) K/mm3 Monocytes # (Manual) (0.0-0.8) K/mm3 Eosinophils # (Manual) (0.0-0.4) K/mm3 Basophils # (Manual) (0.0-0.1) K/mm3 Metamyelocytes # K/mm3 Myelocytes # K/mm3 Promyelocytes # K/mm3 Blast Cells # K/mm3 WBC Morphology Hypersegmented Neuts Hyposegmented Neuts Hypogranular Neuts Smudge Cells Toxic Granulation Toxic Vacuolation Dohle Bodies Pelger-Huet Anomaly Graciela Rods Platelet Estimate Clumped Platelets Plt Clumps, EDTA Large Platelets Giant Platelets Platelet Satelliting Plt Morphology Comment RBC Morphology Dimorphic RBCs Polychromasia Hypochromasia Poikilocytosis Anisocytosis Microcytosis Macrocytosis Spherocytes Pappenheimer Bodies Sickle Cells Target Cells Tear Drop Cells Ovalocytes Helmet Cells [place] Bodies [place] Rings [place] Cells Bite Cells Crenated Cell Elliptocytes Acanthocytes (Spur) Rouleaux Hemoglobin C Crystals Schistocytes Malaria parasites Enrrique Bodies Hem Pathologist Commnt PT (12.2-14.9) Sec. INR (0.87-1.13) Sodium (137-145) mmol/L Potassium (3.6-5.0) mmol/L Chloride (98-107) mmol/L Carbon Dioxide (22-30) mmol/L Anion Gap mmol/L BUN (7-17) mg/dL Creatinine (0.6-1.2) mg/dL Estimated GFR ml/min BUN/Creatinine Ratio % Glucose (65-100) mg/dL Calcium (8.4-10.2) mg/dL Magnesium (1.7-2.3) mg/dL Total Bilirubin (0.1-1.2) mg/dL AST (5-40) units/L ALT (7-56) units/L Alkaline Phosphatase (35-129) units/L Total Creatine Kinase (30-135) units/L NT-Pro-B Natriuret Pep (0-900) pg/mL Total Protein (6.3-8.2) g/dL Albumin (3.9-5) g/dL Albumin/Globulin Ratio % Blood Type O POSITIVE Vital Signs 02/28/21 02/28/21 17:32 17:41 Temperature 97.6 F Pulse Rate 78 80 Respiratory 24 20 Rate Blood Pressure 151/69 [Right] O2 Sat by Pulse 94 100 Oximetry - EKG Data -: EKG Interpreted by [place] EKG shows normal: sinus rhythm Rate: normal - EKG Data Interpretation: unchanged when compared t 02/28/21 19:00 The EKG today is interpreted at 18: 16: 11 Sinus rhythm, 80 bpm. Normal axis. WA interval 192 ms. Low voltage globally. Motion artifact. Abnormal EKG. Not a STEMI. There is poor R wave progression. Appears to be unchanged when compared to prior EKG from 02/17/2021 - Radiology Data Radiology results: report reviewed, image reviewed CHEST 1 VIEW 1827 INDICATION / CLINICAL INFORMATION: Dyspnea COMPARISON: 02/17/2021 FINDINGS: SUPPORT DEVICES: None HEART / MEDIASTINUM: Cardiomegaly LUNGS / PLEURA: Congestive changes and pulmonary edema have improved and nearly cleared. Small bilateral pleural effusions are again seen with associated basilar atelectatic changes. No pneumothorax. ADDITIONAL FINDINGS: No significant additional findings. Signer Name: Jason Ivy MD Signed: 02/28/2021 5:33 PM Workstation Name: [email or web address] Critical care attestation.: If time is entered above; I have spent that time in minutes in the direct care of this critically ill patient, excluding procedure time. ED Disposition Clinical Impression: Volume overload, COPD (chronic obstructive pulmonary disease), Ascites, End s tage renal disease on dialysis, Anemia in chronic kidney disease, SOB (shortness of breath), Pleural effusion Disposition: OP ADMIT IP TO THIS HOSP Is pt being admited?: Yes Does the pt Need Aspirin: No Condition: Good Instructions: Chronic Obstructive Pulmonary Disease (ED) Referrals: PRIMARY CARE, [Primary Care Provider] - 3-5 Days
--- NOTE | 2021-02-28 18:38 | XRay Report ---
CHEST 1 VIEW 1825 INDICATION / CLINICAL INFORMATION: Dyspnea COMPARISON: 02/17/2021 FINDINGS: SUPPORT DEVICES: None HEART / MEDIASTINUM: Cardiomegaly LUNGS / PLEURA: Congestive changes and pulmonary edema have improved and nearly cleared. Small bilate ral pleural effusions are again seen with associated basilar atelectatic changes. No pneumothorax. ADDITIONAL FINDINGS: No significant additional findings. Signer Name: Jason Ivy MD Signed: 02/28/2021 6:33 PM Workstation Name: [email or web address]
[2021-02-28 19:16] LABS: Hematocrit 23.7 % (30.3-42.9); Hemoglobin 7.3 gm/dl (10.1-14.3); Mean Corpuscular HGB Conc 31 % (30-34); Mean Corpuscular Volume 90 fl (79-97); Red Blood Count 2.63 M/mm3 (3.65-5.03)
[2021-02-28 19:17] LABS: Platelet Count 59 K/mm3 (140-440); Red Cell Distribution Width 21.4 % (13.2-15.2)
[2021-02-28 19:29] LABS: INR 1.21 (0.87-1.13)
[2021-02-28 19:53] LABS: Anisocytosis 1+; Platelet Estimate Consistent w Auto; Total Cells Counted 100
[2021-02-28 19:54] LABS: Albumin 3.6 g/dL (3.9-5); Blood Urea Nitrogen 18 mg/dL (7-17); Calcium 8.6 mg/dL (8.4-10.2); Hemolysis Index 0
[2021-02-28 19:57] LABS: BUN/Creatinine Ratio 3
[2021-02-28 19:58] LABS: Alanine Aminotransferase < 5 units/L (7-56)
[2021-02-28] MEDS ORDERED: MAGNESIUM HYDROXIDE (MOM) ORAL LIQD UDC PO PRN (22:06)
[2021-02-28] MEDS ORDERED: MORPHINE 2 MG/1 ML INJ IV PRN (22:06)
[2021-02-28] MEDS ORDERED: ACETAMINOPHEN 325 MG TAB PO PRN (22:06)
[2021-02-28] MEDS ORDERED: ONDANSETRON 4 MG/2 ML INJ IV PRN (22:06)
[2021-02-28] MEDS ORDERED: DEXTROSE 50% IN WATER (25GM) 50 ML SYRINGE IV PRN (22:06)
[2021-02-28] MEDS ORDERED: MORPHINE 4 MG/1 ML INJ IV PRN (22:06)
--- NOTE | 2021-02-28 22:16 | History and Physical Report ---
History of Present Illness Date of examination: 02/28/21 Date of admission: 02/28/21 21:33 Chief complaint: Low Hemoglobin History of present illness: 61-year-old -Green[place]ic female with known history of end-stage renal disease on hemodialysis on Tuesdays, and Saturdays, CHF, hypertension, diabetes mellitus, seizure disorder, CVA, COPD on chronic home oxygen presents to the emergency room today with complaint of shortness of breath, abdominal distention and low blood counts. Patient did not receive any dialysis today because of low hemoglobin level of about 6 while at the dialysis center. Patient denies any fever or chills, no headache or dizziness, no nausea or vomiting, no abdominal pain, no hematemesis, no hematochezia and no melena sto ol. Work-up in the emergency room today reveals hemoglobin level of 7.3 and hematocrit of 23.7. Potassium level was low at 3.2. Chest x-ray reveals pulmonary edema has improved. A small bilateral pleural effusions with associated basilar atelectasis. 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 Past History Past Medical History: arthritis, COPD, diabetes, dialysis (2015-SAT,,SAT.), ESRD, hypertension, migraines, seizures, stroke (X4,6 TIAs), other (aSTHMA) Past Surgical History: PTCA, Other (Breast reduction 1979, av fistula left arm) Social history: no significant social history Family history: no significant family history Medications and Allergies Allergies Allergy/AdvReac Type Severity Reaction Status Date / Time No Known Allergies Allergy Verified 02/06/21 07:54 Home Medications Medication Instructions Recorded Confirmed Last Taken Type Fluticasone [Flonase] 1 spray NS QDAY PRN 12/01/19 01/06/21 01/18/20 History Calcium Carbonate [Tums 500MG CHEW] 750 mg PO QHS #30 02/02/20 01/06/21 02/20/20 Rx Gabapentin [Neurontin] 800 mg PO TID #90 tab 02/02/20 01/06/21 02/20/20 Rx Mirtazapine [Remeron 15mg TAB] 15 mg PO QHS #30 tab 02/02/20 01/06/21 02/20/20 Rx Acetaminophen [Acetaminophen TAB] 650 mg PO Q4H PRN tablet 04/21/20 01/06/21 Unknown Rx Aspirin EC [Halfprin EC] 81 mg PO QDAY #30 tablet 04/21/20 01/06/21 Unknown Rx AtorvaSTATin [Lipitor] 40 mg PO QHS #30 tablet 04/21/20 01/06/21 Unknown Rx Calcium Acetate [Phoslo] 2,001 mg PO TIDWM #30 capsule 04/21/20 01/06/21 Unknown Rx Clopidogrel [Plavix] 75 mg PO QDAY #30 tab 04/21/20 01/06/21 Unknown Rx Epoetin Hiro 20,000 Unit [Procrit] 20,000 unit IV GREY vial 04/21/20 01/06/21 Unknown Rx Loperamide [Imodium] 2 mg PO Q4HR PRN #24 capsule 04/21/20 01/06/21 Unknown Rx Losartan [Cozaar] 50 mg PO QDAY #30 tablet 04/21/20 01/06/21 Unknown Rx Metoprolol [Lopressor TAB] 12.5 mg PO BID #60 tablet 04/21/20 01/06/21 Unknown Rx Torsemide [Demadex] 20 mg PO QDAY tablet 04/21/20 01/06/21 Unknown Rx calcitrioL [Rocaltrol] 1 mcg PO QDAY #30 cap 04/21/20 01/06/21 Unknown Rx hydrALAZINE [Apresoline TAB] 50 mg PO BID #120 tablet 04/21/20 01/06/21 Unknown Rx levETIRAcetam [Keppra TAB] 500 mg PO BID #60 tablet 04/21/20 01/06/21 Unknown Rx Albuterol Sulfate [Proair 90 mcg IH Q6HR PRN 05/17/20 01/06/21 Unknown History Digihaler] Azithromycin [Zithromax Z-TIMOTHY] 250 mg PO DAILY #6 tab 05/18/20 01/06/21 Unknown Rx Ondansetron [Zofran ODT TAB] 8 mg PO Q8HR PRN #10 05/18/20 01/06/21 Unknown Rx oxyCODONE /ACETAMINOPHEN [Percocet 1 tab PO Q6H PRN #10 tablet 05/18/20 01/06/21 Unknown Rx 5/325 mg] Active Meds: Active Medications Acetaminophen (Acetaminophen 325 Mg Tab) 650 mg PO Q4H PRN PRN Reason: Pain MILD(1-3)/Fever >100.5/MCDANIEL Dextrose (Dextrose 50% In Water (25gm) 50 Ml Syringe) 50 ml IV Q30MIN PRN; Protocol PRN Reason: Hypoglycemia Insulin Human Lispro (Insulin Lispro 100 Unit/Ml) 0 unit SUB-Q ACHS LENCHO; Protocol Magnesium Hydroxide (Magnesium Hydroxide (Mom) Oral Liqd Udc) 30 ml PO Q4H PRN PRN Reason: Constipation Morphine Sulfate (Morphine 2 Mg/1 Ml Inj) 2 mg IV Q4H PRN PRN Reason: Pain, Moderate (4-6) Morphine Sulfate (Morphine 4 Mg/1 Ml Inj) 4 mg IV Q4H PRN PRN Reason: Pain , Severe (7-10) Ondansetron HCl (Ondansetron 4 Mg/2 Ml Inj) 4 mg IV Q8H PRN PRN Reason: Nausea And Vomiting Sodium Chloride (Sodium Chloride 0.9% 10 Ml Flush Syringe) 10 ml IV BID LENCHO Sodium Chloride (Sodium Chloride 0.9% 10 Ml Flush Syringe) 10 ml IV PRN PRN PRN Reason: LINE FLUSH Review of Systems Constitutional: no fever, no chills Ears, nose, mouth and throat: no nasal congestion, no sore throat Cardiovascular: no chest pain, no palpitations Respiratory: shortness of breath, no cough Gastrointestinal: abdominal pain, no nausea, no vomiting, no diarrhea Genitourinary Female: no pelvic pain, no flank pain, no dysuria, no hematuria Musculoskeletal: no neck pain, no low back pain Integumentary: no rash, no pruritis Neurological: no headaches, no confusion Psychiatric: no anxiety, no depression Endocrine: no polyphagia, no polyuria, no nocturia Exam - Constitutional Vitals: Temp Pulse Resp BP Pulse Ox 97.6 F 80 20 151/69 100 02/28/21 17:41 02/28/21 17:41 02/28/21 17:41 02/28/21 17:32 02/28/21 17:41 General appearance: Present: no acute distress, well-nourished, other (Moderate Pallor) - EENT Eyes: Present: PERRL, EOM intact. Absent: scleral icterus ENT: hearing intact, clear oral mucosa, dentition normal - Neck Neck: Present: supple, normal ROM - Respiratory Respiratory effort: normal Respiratory: bilateral: CTA - Cardiovascular Rhythm: regular Heart Sounds: Present: S1 & S2. Absent: gallop, systolic murmur, diastolic murmur, rub, click - Extremities Extremities: no ischemia, pulses intact, pulses symmetrical, No edema, normal temperature, normal color, Full ROM, abnormal (Left AV fistula) Peripheral Pulses: within normal limits - Abdominal General gastrointestinal: Present: soft, non-tender, distended (Ascites, Palpable thrill), normal bowel sounds. Absent: mass - Integumentary Integumentary: Present: clear, warm, dry. Absent: rash - Musculoskeletal Musculoskeletal: strength equal bilaterally - Psychiatric Psychiatric: appropriate mood/affect, intact judgment & insight, memory intact, cooperative - Neurologic Neurologic: CNII-XII intact, no focal deficits, moves all extremities Results - Labs CBC & Chem 7: 02/28/21 18:35 02/28/21 18:35 Labs: Abnormal lab results 02/28/21 02/28/21 02/28/21 Range/Units 18:35 18:35 18:35 WBC 2.0 L (4.5-11.0) K/mm3 RBC 2.63 L (3.65-5.03) M/mm3 Hgb 7.3 L (10.1-14.3) gm/dl Hct 23.7 L (30.3-42.9) % RDW 21.4 H (13.2-15.2) % Plt Count 59 L (140-440) K/mm3 Seg Neuts % (Manual) 73.0 H (40.0-70.0) % Seg Neutrophils # Man 1.5 L (1.8-7.7) K/mm3 Lymphocytes # (Manual) 0.4 L (1.2-5.4) K/mm3 PT 15.8 H (12.2-14.9) Sec. INR 1.21 H (0.87-1.13) Potassium 3.2 L (3.6-5.0) mmol/L Chloride 97.0 L (98-107) mmol/L Carbon Dioxide 33 H (22-30) mmol/L BUN 18 H (7-17) mg/dL Creatinine 6.2 H (0.6-1.2) mg/dL ALT < 5 L (7-56) units/L NT-Pro-B Natriuret Pep > 54729 H (0-900) pg/mL Albumin 3.6 L (3.9-5) g/dL Assessment and Plan - Patient Problems (1) End stage renal disease on dialysis Current Visit: Yes Status: Chronic Plan to address problem: Patient on dialysis on Saturday, and Saturday. Awaits nephrology evaluation and recommendations. (2) Anemia in chronic kidney disease Current Visit: Yes Status: Chronic Qualifiers: Plan to address problem: We will monitor CBC. Patient will be transfused packed red blood cells if needed. (3) Ascites Current Visit: No Status: Chronic Plan to address problem: Patient to be scheduled for paracentesis. (4) Hypokalemia Current Visit: Yes Status: Acute Plan to address problem: Potassium repleted. We will monitor chemistry. (5) DVT prophylaxis Current Visit: No Status: Acute Plan to address problem: Patient placed on sequential compression device. (6) Full code status Current Visit: No Status: Acute Plan to address problem: Patient is a full code.
[2021-03-01] MEDS: POTASSIUM CHLORIDE ER 20 MEQ TAB PO ONE ×2 (00:50→00:52)
[2021-03-01] MEDS ORDERED: POTASSIUM CHLORIDE ER 20 MEQ TAB PO ONE (01:00)
[2021-03-01 05:50] LABS: Calcium 8.2 mg/dL (8.4-10.2)
[2021-03-01 05:55] LABS: Hematocrit 20.9 % (30.3-42.9); Hemoglobin 6.5 gm/dl (10.1-14.3); Mean Corpuscular HGB Conc 31 % (30-34); Mean Corpuscular Volume 90 fl (79-97); Red Blood Count 2.33 M/mm3 (3.65-5.03)
[2021-03-01 05:57] LABS: Platelet Count 52 K/mm3 (140-440); Red Cell Distribution Width 21.3 % (13.2-15.2)
[2021-03-01 06:13] LABS: INR 1.3 (0.87-1.13)
[2021-03-01 08:00] LABS: Anisocytosis 1+; Band Neutrophils # (Manual) 0.5 K/mm3; Hypochromasia 1+; Ovalocytes 1+; Platelet Estimate Consistent w Auto; Total Cells Counted 100
[2021-03-01] MEDS: INSULIN LISPRO 100 UNIT/ML SUB-Q SCH ×3 (09:00→17:56)
[2021-03-01] MEDS ORDERED: SODIUM CHLORIDE 0.9% 100 ML IV PRN (10:39)
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
--- NOTE | 2021-03-01 11:36 | XRay Report ---
PORTABLE RIGHT KNEE 2 VIEWS INDICATION / CLINICAL INFORMATION: Right knee pain. COMPARISON: None available. FINDINGS: BONES / JOINT(S): There is an acute transverse fracture of the midportion of the patella with mild di straction of the fracture fragments. There are moderate tricompartmental degenerative changes, predom inantly involving the medial tibiofemoral joint. There is a small joint effusion. SOFT TISSUES: There are extensive atherosclerotic calcifications. ADDITIONAL FINDINGS: None. IMPRESSION: Acute, mildly displaced transverse fracture of the mid right patella. Signer Name: Heladio Jackson MD Signed: 03/01/2021 11:32 AM Workstation Name: [id number]
[2021-03-01] MEDS ORDERED: SODIUM CHLORIDE 0.9% 500 ML 500 ML IV SCH (13:00)
--- NOTE | 2021-03-01 15:19 | Event Note ---
Date: 03/01/21 Vascular and Interventional Radiology does not perform paracentesis. Diagnostic radiology does at [facility]. Placed order for paracentesis to assist with care, but please place order for US paracentesis and coordinate with diagnostic radiology in the future.
[2021-03-01 15:30] LABS: Hepatitis B Surface Antigen Non-Reactive (Negative); Hepatitis C Virus Antibody Non-Reactive (NonReactive)
--- NOTE | 2021-03-01 17:29 | Consultation ---
History of Present Illness - Reason for Consult Consult date: 03/01/21 end stage renal disease - History of Present Illness This is a 61-year-old woman with end-stage renal disease on hemodialysis, hypertension, diabetes, congestive heart failure, COPD on home O2 and seizure disorder who was presented with shortness pf breath and abdominal distention. Patient notes having bright red blood per rectum 2 days ago but has not had any further episodes since then. She denies hematemesis, melena, presyncope, syncope and chest pain. Nephrology was consulted for ESRD management. Past History Past Medical History: arthritis, COPD, diabetes, dialysis (,THUR,SAT.), ESRD, hypertension, migraines, seizures, stroke (X4,6 TIAs), other (aSTHMA) Past Surgical History: PTCA, Other (Breast reduction 1980, av fistula left arm) Social history: no significant social history Family history: no significant family history Medications and Allergies Allergies Allergy/AdvReac Type Severity Reaction Status Date / Time No Known Allergies Allergy Verified 02/06/21 07:54 Home Medications Medication Instructions Recorded Confirmed Last Taken Type Fluticasone [Flonase] 1 spray NS QDAY PRN 12/01/19 03/01/21 01/18/20 History Gabapentin [Neurontin] 800 mg PO TID #90 tab 02/02/20 03/01/21 02/20/20 Rx Mirtazapine [Remeron 15mg TAB] 15 mg PO QHS #30 tab 02/02/20 03/01/21 02/20/20 Rx Acetaminophen [Acetaminophen TAB] 650 mg PO Q4H PRN tablet 04/21/20 03/01/21 Unknown Rx Aspirin EC [Halfprin EC] 81 mg PO QDAY #30 tablet 04/21/20 03/01/21 Unknown Rx AtorvaSTATin [Lipitor] 40 mg PO QHS #30 tablet 04/21/20 03/01/21 Unknown Rx Calcium Acetate [Phoslo] 2,001 mg PO TIDWM #30 capsule 04/21/20 03/01/21 Unknown Rx Clopidogrel [Plavix] 75 mg PO QDAY #30 tab 04/21/20 03/01/21 Unknown Rx Epoetin Hiro 20,000 Unit [Procrit] 20,000 unit IV GREY vial 04/21/20 03/01/21 Unknown Rx Loperamide [Imodium] 2 mg PO Q4HR PRN #24 capsule 04/21/20 03/01/21 Unknown Rx Losartan [Cozaar] 50 mg PO QDAY #30 tablet 04/21/20 03/01/21 Unknown Rx Metoprolol [Lopressor TAB] 12.5 mg PO BID #60 tablet 04/21/20 03/01/21 Unknown Rx Torsemide [Demadex] 20 mg PO QDAY tablet 04/21/20 03/01/21 Unknown Rx calcitrioL [Rocaltrol] 1 mcg PO QDAY #30 cap 04/21/20 03/01/21 Unknown Rx hydrALAZINE [Apresoline TAB] 50 mg PO BID #120 tablet 04/21/20 03/01/21 Unknown Rx levETIRAcetam [Keppra TAB] 500 mg PO BID #60 tablet 04/21/20 03/01/21 Unknown Rx Albuterol Sulfate [Proair 90 mcg IH Q6HR PRN 05/17/20 03/01/21 Unknown History Digihaler] Azithromycin [Zithromax Z-TIMOTHY] 250 mg PO DAILY #6 tab 05/18/20 03/01/21 Unknown Rx Ondansetron [Zofran ODT TAB] 8 mg PO Q8HR PRN #10 05/18/20 03/01/21 Unknown Rx Calcium Carbonate [Tums 500MG CHEW] 750 mg PO QDAY 03/01/21 03/01/21 Unknown History Active Meds: Active Medications Acetaminophen (Acetaminophen 325 Mg Tab) 650 mg PO Q4H PRN PRN Reason: Pain MILD(1-3)/Fever >100.5/MCDANIEL Dextrose (Dextrose 50% In Water (25gm) 50 Ml Syringe) 50 ml IV Q30MIN PRN; Protocol PRN Reason: Hypoglycemia Sodium Chloride (Nacl 0.9%) 100 mls @ 999 mls/hr IV GREY PRN PRN Reason: Hypotension Sodium Chloride (Nacl 0.9% 500 Ml) 500 mls @ 0 mls/hr IV ONCE LENCHO Stop: 03/01/21 20:00 Insulin Human Lispro (Insulin Lispro 100 Unit/Ml) 0 unit SUB-Q ACHS LENCHO; Protocol Last Admin: 03/01/21 13:24 Dose: Not Given Documented by: Magnesium Hydroxide (Magnesium Hydroxide (Mom) Oral Liqd Udc) 30 ml PO Q4H PRN PRN Reason: Constipation Morphine Sulfate (Morphine 2 Mg/1 Ml Inj) 2 mg IV Q4H PRN PRN Reason: Pain, Moderate (4-6) Morphine Sulfate (Morphine 4 Mg/1 Ml Inj) 4 mg IV Q4H PRN PRN Reason: Pain , Severe (7-10) Last Admin: 03/01/21 13:15 Dose: 4 mg Documented by: Ondansetron HCl (Ondansetron 4 Mg/2 Ml Inj) 4 mg IV Q8H PRN PRN Reason: Nausea And Vomiting Last Admin: 03/01/21 13:33 Dose: 4 mg Documented by: Sodium Chloride (Sodium Chloride 0.9% 10 Ml Flush Syringe) 10 ml IV BID LENCHO Last Admin: 03/01/21 10:35 Dose: 10 ml Documented by: Sodium Chloride (Sodium Chloride 0.9% 10 Ml Flush Syringe) 10 ml IV PRN PRN PRN Reason: LINE FLUSH Review of Systems Constitutional: no fever, no chills Ears, nose, mouth and throat: no nasal congestion, no nasal discharge Cardiovascular: no chest pain, no orthopnea Respiratory: shortness of breath, no cough, no hemoptysis Gastrointestinal: BRBPR, no abdominal pain Musculoskeletal: no muscle weakness, no muscle cramps Integumentary: no rash, no pruritis Neurological: no weakness, no parathesias Psychiatric: no anxiety, no memory loss Endocrine: no polydipsia, no polyuria Hematologic/Lymphatic: no easy bruising, no easy bleeding Allergic/Immunologic: no wheezing Exam - Vital Signs Vital signs: Vital Signs Pulse Resp BP Pulse Ox 78 24 151/69 94 02/28/21 17:32 02/28/21 17:32 02/28/21 17:32 02/28/21 17:32 Results - Lab Results 03/01/21 05:02 03/01/21 05:02 Most recent lab results Calcium 8.2 mg/dL (8.4-10.2) L 03/01/21 05:02 Magnesium 2.00 mg/dL (1.7-2.3) 02/28/21 18:35 Assessment and Plan End-stage renal disease on hemodialysis Pancytopenia Symptomatic anemia Bright red blood per rectum Plan for hemo-dialysis today, continue MWF Assess daily for needs for additional session Transfuse for hemoglobin less than 7 Epogen with HD sessions Recommend GI consult for BRBPR evaluation Pancytopenia w/u as per primary Renally dose medications Renal diet
[2021-03-01 17:50] VITALS: BP 152/76
--- NOTE | 2021-03-02 12:14 | Electrocardiograph Report ---
[facility] Test Date: 2021-02-28 Test Time: 18:16:11 Pat Name: JOSE MCNAIR Department: Room: [facility] Gender: F Medic Technician: ARPITA : 1960 Requested By: RAYNE ROCHA Order Number: [id number] Reading MD: Major Mixon Measurements Intervals [place] Rate: 80 P: 38 RI: 192 QRS: -11 QRSD: 87 T: 88 QT: QTc: 0 Interpretive Statements Sinus rhythm Nonspecific T abnrm, anterolateral leads Low voltage QRS Compared to ECG 02/17/2021 20:04:15 No significant change Electronically Signed On 03-02-2021 12:14:20 EDT by Major Mixon
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
== END 2021-03-01 19:39 | disposition left against medical advice (07) | DRG 186 ==
LOC: ED 17:27 → 3A 21:33 → OBSVTOIN 03-01 11:57
PROVIDERS: ADMIT Internal Medicine Geriatric Medicine; ATTEND Internal Medicine
PROC: 5A1D70Z Performance of Urinary Filtration, Intermittent, Less than 6 Hours Per Day (ICD-10-PCS; principal; 2021-03-01)
DX: J90 Pleural effusion, not elsewhere classified (principal); N18.6 End stage renal disease; S82.001A Unspecified fracture of right patella, initial encounter for closed fracture; R18.8 Other ascites; I13.2 Hypertensive heart and chronic kidney disease with heart failure and with stage 5 chronic kidney disease, or end stage renal disease; D61.818 Other pancytopenia; K62.5 Hemorrhage of anus and rectum; J98.11 Atelectasis; E87.70 Fluid overload, unspecified; J44.9 Chronic obstructive pulmonary disease, unspecified; I50.9 Heart failure, unspecified; E11.22 Type 2 diabetes mellitus with diabetic chronic kidney disease; M19.90 Unspecified osteoarthritis, unspecified site; G43.909 Migraine, unspecified, not intractable, without status migrainosus; D63.1 Anemia in chronic kidney disease; G40.909 Epilepsy, unspecified, not intractable, without status epilepticus; E87.6 Hypokalemia; Z53.29 Procedure and treatment not carried out because of patient's decision for other reasons; Z86.73 Personal history of transient ischemic attack (TIA), and cerebral infarction without residual deficits; Z98.61 Coronary angioplasty status; I25.2 Old myocardial infarction; Z99.2 Dependence on renal dialysis; X58.XXXA Exposure to other specified factors, initial encounter; Y93.89 Activity, other specified; Y92.89 Other specified places as the place of occurrence of the external cause; Y99.8 Other external cause status
CPT/HCPCS: 36415; 71045; 80048; 80053; 80074; 82550; 82962; 83735; 83880; 85007; 85025; 85610; 86850; 86900; 86901; 86920; 93005; 96374; G0378; J2270; J2405; P9016

== ENCOUNTER 2021-03-04 06:22 | Inpatient (IN) | payer MEDICARE ==
--- NOTE | 2021-03-04 09:13 | Emergency Department Report ---
ED General Adult HPI - General Chief complaint: Dyspnea/Respdistress Stated complaint: SOB PUI?: No Time Seen by Provider: 03/04/21 09:06 Source: EMS ( EMS documentation not available at time of chart dictation ), RN notes reviewed Mode of arrival: Wheelchair Limitations: Physical Limitation - History of Present Illness Initial comments: This is a 61-year-old female. I am familiar with this patient. I recently admitted this patient to the medical service. Her past medical history includes end-stage renal disease on hemodialysis, chronic respiratory failure, and recurrent ascites. She was admitted to the medical service this week for symptomatic ascites, requiring paracentesis, fluid overload. She had a negative rectal exam on my rectal examination at that time. Patient signed out AGAINST MEDICAL ADVICE while in the hospital. She presents to the ER today with request for readmission. She states that she went to dialysis today, and she would not be dialyzed. She denies headache and neck pain. She has no chest pain. She has chronic shortness of breath. She has worsening abdominal distention. She denies hematemesis of bright red blood per rectum. She is amenable to paracentesis, and to admission. -: Gradual, days(s) Location: abdomen Severity scale (0 -10): 0 Consistency: constant Improves with: other (Symptoms typically improve with paracentesis) Worsens with: movement - Related Data Home Medications Medication Instructions Recorded Confirmed Last Taken Fluticasone [Flonase] 1 spray NS QDAY PRN 12/01/19 03/01/21 01/18/20 Albuterol Sulfate [Proair 90 mcg IH Q6HR PRN 05/17/20 03/01/21 Unknown Digihaler] Calcium Carbonate [Tums 500MG CHEW] 750 mg PO QDAY 03/01/21 03/01/21 Unknown Previous Rx's Medication Instructions Recorded Last Taken Type Gabapentin [Neurontin] 800 mg PO TID #90 tab 02/02/20 02/20/20 Rx Mirtazapine [Remeron 15mg TAB] 15 mg PO QHS #30 tab 02/02/20 02/20/20 Rx Acetaminophen [Acetaminophen TAB] 650 mg PO Q4H PRN tablet 04/21/20 Unknown Rx Aspirin EC [Halfprin EC] 81 mg PO QDAY #30 tablet 04/21/20 Unknown Rx AtorvaSTATin [Lipitor] 40 mg PO QHS #30 tablet 04/21/20 Unknown Rx Calcium Acetate [Phoslo] 2,001 mg PO TIDWM #30 capsule 04/21/20 Unknown Rx Clopidogrel [Plavix] 75 mg PO QDAY #30 tab 04/21/20 Unknown Rx Epoetin Hiro 20,000 Unit [Procrit] 20,000 unit IV GREY vial 04/21/20 Unknown Rx Loperamide [Imodium] 2 mg PO Q4HR PRN #24 capsule 04/21/20 Unknown Rx Losartan [Cozaar] 50 mg PO QDAY #30 tablet 04/21/20 Unknown Rx Metoprolol [Lopressor TAB] 12.5 mg PO BID #60 tablet 04/21/20 Unknown Rx Torsemide [Demadex] 20 mg PO QDAY tablet 04/21/20 Unknown Rx calcitrioL [Rocaltrol] 1 mcg PO QDAY #30 cap 04/21/20 Unknown Rx hydrALAZINE [Apresoline TAB] 50 mg PO BID #120 tablet 04/21/20 Unknown Rx levETIRAcetam [Keppra TAB] 500 mg PO BID #60 tablet 04/21/20 Unknown Rx Azithromycin [Zithromax Z-TIMOTHY] 250 mg PO DAILY #6 tab 05/18/20 Unknown Rx Ondansetron [Zofran ODT TAB] 8 mg PO Q8HR PRN #10 05/18/20 Unknown Rx Allergies Allergy/AdvReac Type Severity Reaction Status Date / Time No Known Allergies Allergy Verified 03/04/21 07:25 ED Review of Systems ROS: Stated complaint: SOB Other details as noted in HPI Constitutional: malaise, weakness Eyes: denies: eye discharge ENT: denies: epistaxis Respiratory: shortness of breath Cardiovascular: edema Gastrointestinal: abdominal pain (Abdominal distention). denies: melena, hematochezia Neurological: weakness Hematological/Lymphatic: denies: easy bleeding ED Past Medical Hx - Past Medical History Hx Hypertension: Yes Hx CVA: Yes (x4, 6TIAs) Hx Heart Attack/AMI: Yes Hx Congestive Heart Failure: Yes Hx Diabetes: Yes Hx Liver Disease: No Hx Renal Disease: Yes (dialysis 2015, , and Sat) Hx Sickle Cell Disease: No Hx Arthritis: Yes Hx Headaches / Migraines: Yes Hx Seizures: Yes Hx Asthma: Yes Hx COPD: Yes Hx HIV: No - Surgical History Hx Coronary Stent: Yes Hx Pacemaker: No Hx Internal Defibrillator: No Hx Breast Surgery: Yes (breast reduction 1979) Additional Surgical History: breast reduction 1979, av fistula left arm - Social History Smoking Status: Former Smoker - Medications Home Medications: Home Medications Medication Instructions Recorded Confirmed Last Taken Type Fluticasone [Flonase] 1 spray NS QDAY PRN 12/01/19 03/01/21 01/18/20 History Gabapentin [Neurontin] 800 mg PO TID #90 tab 02/02/20 03/01/21 02/20/20 Rx Mirtazapine [Remeron 15mg TAB] 15 mg PO QHS #30 tab 02/02/20 03/01/21 02/20/20 Rx Acetaminophen [Acetaminophen TAB] 650 mg PO Q4H PRN tablet 04/21/20 03/01/21 Unknown Rx Aspirin EC [Halfprin EC] 81 mg PO QDAY #30 tablet 04/21/20 03/01/21 Unknown Rx AtorvaSTATin [Lipitor] 40 mg PO QHS #30 tablet 04/21/20 03/01/21 Unknown Rx Calcium Acetate [Phoslo] 2,001 mg PO TIDWM #30 capsule 04/21/20 03/01/21 Unknown Rx Clopidogrel [Plavix] 75 mg PO QDAY #30 tab 04/21/20 03/01/21 Unknown Rx Epoetin Hiro 20,000 Unit [Procrit] 20,000 unit IV GREY vial 04/21/20 03/01/21 Unknown Rx Loperamide [Imodium] 2 mg PO Q4HR PRN #24 capsule 04/21/20 03/01/21 Unknown Rx Losartan [Cozaar] 50 mg PO QDAY #30 tablet 04/21/20 03/01/21 Unknown Rx Metoprolol [Lopressor TAB] 12.5 mg PO BID #60 tablet 04/21/20 03/01/21 Unknown Rx Torsemide [Demadex] 20 mg PO QDAY tablet 04/21/20 03/01/21 Unknown Rx calcitrioL [Rocaltrol] 1 mcg PO QDAY #30 cap 04/21/20 03/01/21 Unknown Rx hydrALAZINE [Apresoline TAB] 50 mg PO BID #120 tablet 04/21/20 03/01/21 Unknown Rx levETIRAcetam [Keppra TAB] 500 mg PO BID #60 tablet 04/21/20 03/01/21 Unknown Rx Albuterol Sulfate [Proair 90 mcg IH Q6HR PRN 05/17/20 03/01/21 Unknown History Digihaler] Azithromycin [Zithromax Z-TIMOTHY] 250 mg PO DAILY #6 tab 05/18/20 03/01/21 Unknown Rx Ondansetron [Zofran ODT TAB] 8 mg PO Q8HR PRN #10 05/18/20 03/01/21 Unknown Rx Calcium Carbonate [Tums 500MG CHEW] 750 mg PO QDAY 03/01/21 03/01/21 Unknown History ED Physical Exam - General Limitations: Physical Limitation General appearance: alert, anxious - Head Head exam: Present: atraumatic, normocephalic - Eye Eye exam: Present: normal appearance, EOMI. Absent: nystagmus - ENT ENT exam: Present: normal exam, normal orophraynx, mucous membranes moist, norm al external ear exam - Neck Neck exam: Present: normal inspection, full ROM. Absent: tenderness, meningismus - Respiratory Respiratory exam: Present: normal lung sounds bilaterally, respiratory distress, rales, accessory muscle use - Cardiovascular Cardiovascular Exam: Present: regular rate, normal rhythm, normal heart sounds. Absent: bradycardia, tachycardia, irregular rhythm, systolic murmur, diastolic murmur, rubs, gallop - GI/Abdominal GI/Abdominal exam: Present: soft, distended. Absent: tenderness, guarding, rebound, rigid, pulsatile mass - Extremities Exam Extremities exam: Present: normal inspection, full ROM, pedal edema (1-2+ edema in the bilateral lower extremity) - Back Exam Back exam: Present: normal inspection, other (Upper extremity fistula noted, without redness, pus or streaking). Absent: tenderness, CVA tenderness (R), CVA tenderness (L) - Neurological Exam Neurological exam: Present: alert, other (No facial droop. Tongue midline. Extraocular movements intact bilaterally. Facial sensation intact to light touch in V1, V2, V3 distribution bilaterally. 5 and a 5 strength in 4 extremities. Sensation intact to light touch in 4 extremities.) - Psychiatric Psychiatric exam: Present: anxious - Skin Skin exam: Present: warm, dry, intact, normal color. Absent: rash ED Course Vital Signs 07/03/04/21 03/04/21 07:37 09:27 10:20 Temperature 98.4 F Pulse Rate 83 80 84 Respiratory 22 16 16 Rate Blood Pressure 142/69 140/62 119/62 [Right] O2 Sat by Pulse 100 96 96 Oximetry 03/04/21 12:01 Temperature Pulse Rate 87 Respiratory 16 Rate Blood Pressure 117/59 [Right] O2 Sat by Pulse 97 Oximetry - Reevaluation(s) Reevaluation #1: 03/04/21 13:37 Differential diagnosis, including but not limited to: Ascites, anemia of chronic disease, chronic thrombocytopenia, end-stage renal disease, fluid overload Assessment and plan: 61-year-old female with worsening ascites, worsening shortness of breath. Her examination today similar to her prior examination, except her abdomen appears to be more distended, she does have some crackles and rales. She has chronic respiratory failure. She makes minimal urine. She states she is not vomiting blood or defecating blood. She denies loss of taste and smell. She is amenable to readmission and hospitalization. Have discussed with covering nephrology, Dr. Tijerina Discussed the patient's history, physical, laboratory studies and imaging studies. Her group will follow in consultation. She can coordinate with hemodialysis. [facility] physician, Dr. Norris to admit to [facility] Of note, this patient presented on the weekend. Do not have interventional radiology available for therapeutic paracentesis. Patient gave verbal informed consent for paracentesis, discussed with nurse Swapnil Moreland present. Paracentesis tray not available, used ultrasound guidance to localize large area of fluid in the right lower quadrant of the abdomen. Used 8 [place] catheter into the rest centesis tray, and attempted to cannulate abdominal cavity to perform paracentesis. Unsuccessful. Please see procedure note. Patient tolerated procedure well. No obvious complications. Have requested that nursing team obtain paracentesis tract, so that we may try. Currently awaiting acquisition of paracentesis tray. [facility] physician is updated. 03/04/21 14:26 Repeat paracentesis successful. Patient has again provided verbal and written informed consent. The right lower quadrant is prepped and draped in typical aseptic/sterile fashion. Patient anesthetized with 5 cc of 1% lidocaine and epinephrine, using a 26-gauge needle. Ultrasound guidance demonstrates large pocket of fluid in the right lower quadrant. Then, 11 blade is used to make a fuad in the right lower quadrant abdominal wall, and a 5 [place]gy[place] catheter with trocar is gently inserted into the abdominal cavity, until ascites fluid is returned. Guiding trocar/needle is removed, and 5 [place] catheter is advanced, and attached to drainage system. Patient is tolerating the procedure well. Fluid will be sent to the lab for analysis. Hospital physician is updated. - Paracentesis Consent Obtained: verbal consent Time Out Performed: Yes Local Anesthetic Used: Lidocaine 2%, with Epi Amount of Anesthesia Used (mls): 6 Fluid: cloudy, Sent to Lab for Analysis Post Procedure Exam: awake, alert, normal BP, normal HR, normal SpO2 Patient Tolerated Procedure: well Complications: none ED Medical Decision Making - Lab Data Result diagrams: 03/04/21 09:14 03/04/21 09:14 Vital Signs 03/04/21 03/04/21 03/04/21 07:37 09:27 10:20 Temperature 98.4 F Pulse Rate 83 80 84 Respiratory 22 16 16 Rate Blood Pressure 142/69 140/62 119/62 [Right] O2 Sat by Pulse 100 96 96 Oximetry Lab Results 03/04/21 03/04/21 03/04/21 Range/Units 09:14 09:14 09:14 WBC 3.4 L (4.5-11.0) K/mm3 RBC 2.78 L (3.65-5.03) M/mm3 Hgb 7.8 L (10.1-14.3) gm/dl Hct 24.4 L (30.3-42.9) % MCV 88 (79-97) fl MCH 28 (28-32) pg MCHC 32 (30-34) % RDW 19.5 H (13.2-15.2) % Plt Count 42 L (140-440) K/mm3 PT 16.5 H (12.2-14.9) Sec. INR 1.27 H (0.87-1.13) Sodium 139 (137-145) mmol/L Potassium 3.3 L (3.6-5.0) mmol/L Chloride 94.9 L (98-107) mmol/L Carbon Dioxide 31 H (22-30) mmol/L Anion Gap 16 mmol/L BUN 26 H (7-17) mg/dL Creatinine 6.7 H (0.6-1.2) mg/dL Estimated GFR 8 ml/min BUN/Creatinine Ratio 4 % Glucose 81 (65-100) mg/dL Calcium 8.4 (8.4-10.2) mg/dL Magnesium 1.90 (1.7-2.3) mg/dL Total Creatine Kinase 36 (30-135) units/L - EKG Data -: EKG Interpreted by Me EKG shows normal: sinus rhythm Rate: normal - EKG Data 03/04/21 11:06 EKG interpreted at 07: 55 AM. Sinus rhythm, rate 83 bpm. Left axis deviation, borderline left anterior fascicular block, poor R wave progression, and low voltage. Abnormal EKG. Not a STEMI. - Radiology Data Radiology results: report reviewed, image reviewed CHEST 1 VIEW 03/04/2021 8:50 AM INDICATION / CLINICAL INFORMATION: dyspnea. COMPARISON: None available. FINDINGS: SUPPORT DEVICES: None. HEART / MEDIASTINUM: No significant abnormality. LUNGS / PLEURA: Increased opacities in bilateral lungs with bilateral pleural effusions. No pneumothorax. ADDITIONAL FINDINGS: Rounded densities projecting overlying the right axilla and right humerus may be external to the patient. Clinical correlation Signer Name: Rodolfo Loera MD Signed: 03/04/2021 9:43 AM Workstation Name: [id number] Critical care attestation.: If time is entered above; I have spent that time in minutes in the direct care of this critically ill patient, excluding procedure time. ED Disposition Clinical Impression: ESRD needing dialysis, Volume overload, Ascites, Anemia, Thrombocytopenia, Pleural cavity effusion Disposition: OP ADMIT IP TO THIS HOSP Is pt being admited?: Yes Does the pt Need Aspirin: No Condition: Good
[2021-03-04 09:33] LABS: Hematocrit 24.4 % (30.3-42.9); Hemoglobin 7.8 gm/dl (10.1-14.3); Mean Corpuscular HGB Conc 32 % (30-34); Mean Corpuscular Volume 88 fl (79-97); Red Blood Count 2.78 M/mm3 (3.65-5.03); Red Cell Distribution Width 19.5 % (13.2-15.2)
[2021-03-04 09:37] LABS: Platelet Count 42 K/mm3 (140-440)
[2021-03-04 09:43] LABS: INR 1.27 (0.87-1.13)
[2021-03-04 10:08] LABS: Blood Urea Nitrogen 26 mg/dL (7-17); Calcium 8.4 mg/dL (8.4-10.2); Hemolysis Index 1
[2021-03-04 10:14] LABS: BUN/Creatinine Ratio 4
--- NOTE | 2021-03-04 10:48 | XRay Report ---
CHEST 1 VIEW 03/04/2021 8:50 AM INDICATION / CLINICAL INFORMATION: dyspnea. COMPARISON: None available. FINDINGS: SUPPORT DEVICES: None. HEART / MEDIASTINUM: No significant abnormality. LUNGS / PLEURA: Increased opacities in bilateral lungs with bilateral pleural effusions. No pneumotho rax. ADDITIONAL FINDINGS: Rounded densities projecting overlying the right axilla and right humerus may be external to the patient. Clinical correlation Signer Name: Rodolfo Loera MD Signed: 03/04/2021 10:43 AM Workstation Name: [id number]
[2021-03-04] MEDS ORDERED: METOCLOPRAMIDE 10 MG/2 ML INJ IV PRN (10:56)
[2021-03-04] MEDS ORDERED: ONDANSETRON 4 MG/2 ML INJ IV PRN ×2 (10:56→11:11)
[2021-03-04] MEDS ORDERED: ACETAMINOPHEN 325 MG TAB PO PRN ×2 (10:56→11:04)
[2021-03-04] MEDS ORDERED: LIDOCAINE 2%/EPINEPHRINE 1:200,000 VIAL (20 ML) INFILTRATI ONE (10:56)
[2021-03-04] MEDS ORDERED: MORPHINE 2 MG/1 ML INJ IV PRN (10:56)
[2021-03-04] MEDS ORDERED: ONDANSETRON 8 MG ODT TAB PO PRN (11:01)
[2021-03-04] MEDS ORDERED: NON-FORMULARY EACH (Albuterol Sulfate [Proair Digihaler] 90 MCG Aer.Pw.Bas) IH PRN (11:01)
[2021-03-04] MEDS ORDERED: FLUTICASONE PROPIONATE NASAL SPRAY 16 GM NS PRN (11:01)
[2021-03-04] MEDS ORDERED: LOPERAMIDE 2 MG CAP PO PRN (11:01)
[2021-03-04] MEDS ORDERED: oxyCODONE /ACETAMINOPHEN 5-325MG TAB PO PRN (11:04)
[2021-03-04] MEDS ORDERED: EPOETIN ALFA IV SCH (11:15)
[2021-03-04] MEDS ORDERED: ALBUTEROL 2.5 MG/3 ML NEBU IH PRN (11:28)
[2021-03-04] MEDS ORDERED: EPOETIN ALFA-EPBX 20,000 UNIT/1 ML VIAL IV PRN (11:45)
[2021-03-04] MEDS: ASPIRIN EC 81 MG TAB PO SCH (11:52)
[2021-03-04] MEDS: LOSARTAN 50 MG TAB PO SCH (11:52)
[2021-03-04] MEDS: METOPROLOL TARTRATE 25 MG TAB PO SCH (11:52)
[2021-03-04] MEDS: levETIRAcetam 500 MG TAB PO SCH (11:52)
[2021-03-04] MEDS: hydrALAZINE 25 MG TAB PO SCH (11:52)
[2021-03-04] MEDS ORDERED: EPOETIN ALFA-EPBX 20,000 UNIT/1 ML VIAL IV SCH (12:00)
[2021-03-04] MEDS: CALCIUM ACETATE 667 MG CAP PO SCH ×2 (12:35→17:33)
[2021-03-04] MEDS: CALCITRIOL 0.5 MCG CAP PO SCH (12:36)
[2021-03-04] MEDS: TORSEMIDE 10 MG TAB PO SCH (12:36)
--- NOTE | 2021-03-04 12:42 | History and Physical Report ---
History of Present Illness Date of examination: 03/04/21 Date of admission: 03/04/21 Chief complaint: Shortness of breath History of present illness: Patient is a 61-year-old -[place] female with known history of end-stage renal disease on hemodialysis on Tuesdays, and Saturdays, CHF, hypertension, diabetes mellitus, seizure disorder, CVA, COPD on chronic home oxygen presents to the emergency room today with complaint of shortness of breath, abdominal distention and low blood counts. Patient was not in the hospital and left AGAINST MEDICAL ADVICE even following diagnosis of right knee fracture did appear to be acute worsening shortness of breath. Considering improvement in respiratory status after dialysis she signed out against AMA she tells me that he was requesting that to go take care of her grandchild. She had a time is also pending paracentesis when she left AGAINST MEDICAL ADVICE She returns today with worsening ascites and fluid overload symptomatic requesting further evaluation and admission. Work-up in the emergency room today reveals hemoglobin level of 7.8 and Potassium level was low at 3.3. During this admission she required a unit of packed red blood cell. He denies any nausea vomiting diarrhea she denies any chest pain at this time. She does use home oxygen. She still complains of being unable to bear weight on her right knee. Past History Past Medical History: diabetes, ESRD, hypertension, hyperlipidemia, seizures, stroke Past Surgical History: Other (See full documentation) Social history: Lives alone, full code Family history: no significant family history Medications and Allergies Allergies Allergy/AdvReac Type Severity Reaction Status Date / Time No Known Allergies Allergy Verified 03/04/21 07:25 Home Medications Medication Instructions Recorded Confirmed Last Taken Type Fluticasone [Flonase] 1 spray NS QDAY PRN 12/01/19 03/01/21 01/18/20 History Gabapentin [Neurontin] 800 mg PO TID #90 tab 02/02/20 03/01/21 02/20/20 Rx Mirtazapine [Remeron 15mg TAB] 15 mg PO QHS #30 tab 02/02/20 03/01/21 02/20/20 Rx Acetaminophen [Acetaminophen TAB] 650 mg PO Q4H PRN tablet 04/21/20 03/01/21 Unknown Rx Aspirin EC [Halfprin EC] 81 mg PO QDAY #30 tablet 04/21/20 03/01/21 Unknown Rx AtorvaSTATin [Lipitor] 40 mg PO QHS #30 tablet 04/21/20 03/01/21 Unknown Rx Calcium Acetate [Phoslo] 2,001 mg PO TIDWM #30 capsule 04/21/20 03/01/21 Unknown Rx Clopidogrel [Plavix] 75 mg PO QDAY #30 tab 04/21/20 03/01/21 Unknown Rx Epoetin Hiro 20,000 Unit [Procrit] 20,000 unit IV GREY vial 04/21/20 03/01/21 Unknown Rx Loperamide [Imodium] 2 mg PO Q4HR PRN #24 capsule 04/21/20 03/01/21 Unknown Rx Losartan [Cozaar] 50 mg PO QDAY #30 tablet 04/21/20 03/01/21 Unknown Rx Metoprolol [Lopressor TAB] 12.5 mg PO BID #60 tablet 04/21/20 03/01/21 Unknown Rx Torsemide [Demadex] 20 mg PO QDAY tablet 04/21/20 03/01/21 Unknown Rx calcitrioL [Rocaltrol] 1 mcg PO QDAY #30 cap 04/21/20 03/01/21 Unknown Rx hydrALAZINE [Apresoline TAB] 50 mg PO BID #120 tablet 04/21/20 03/01/21 Unknown Rx levETIRAcetam [Keppra TAB] 500 mg PO BID #60 tablet 04/21/20 03/01/21 Unknown Rx Albuterol Sulfate [Proair 90 mcg IH Q6HR PRN 05/17/20 03/01/21 Unknown History Digihaler] Azithromycin [Zithromax Z-TIMOTHY] 250 mg PO DAILY #6 tab 05/18/20 03/01/21 Unknown Rx Ondansetron [Zofran ODT TAB] 8 mg PO Q8HR PRN #10 05/18/20 03/01/21 Unknown Rx Calcium Carbonate [Tums 500MG CHEW] 750 mg PO QDAY 03/01/21 03/01/21 Unknown History Active Meds: Active Medications Acetaminophen (Acetaminophen 325 Mg Tab) 650 mg PO Q4H PRN PRN Reason: Pain MILD(1-3)/Fever >100.5/MCDANIEL Albuterol (Albuterol 2.5 Mg/3 Ml Nebu) 2.5 mg IH Q4H PRN PRN Reason: Shortness Of Breath Aspirin (Aspirin Ec 81 Mg Tab) 81 mg PO QDAY [facility] Last Admin: 03/04/21 11:52 Dose: 81 mg Documented by: Atorvastatin Calcium (Atorvastatin 40 Mg Tab) 40 mg PO QHS [facility] Calcitriol (Calcitriol 0.5 Mcg Cap) 1 mcg PO QDAY [facility] Last Admin: 03/04/21 12:36 Dose: 1 mcg Documented by: Calcium Acetate (Calcium Acetate 667 Mg Cap) 2,001 mg PO TIDWM [facility] Last Admin: 03/04/21 12:35 Dose: 2,001 mg Documented by: Fluticasone Propionate (Fluticasone Propionate Nasal [place] 16 Gm) 50 mcg NS QDAY PRN PRN Reason: Nasal Congestion Gabapentin (Gabapentin 400 Mg Cap) 800 mg PO TID [facility] Hydralazine HCl (Hydralazine 25 Mg Tab) 50 mg PO BID [facility] Last Admin: 03/04/21 11:52 Dose: 50 mg Documented by: Levetiracetam (Levetiracetam 500 Mg Tab) 500 mg PO BID [facility] Last Admin: 03/04/21 11:52 Dose: 500 mg Documented by: Loperamide HCl (Loperamide 2 Mg Cap) 2 mg PO Q4H PRN PRN Reason: Diarrhea Losartan Potassium (Losartan 50 Mg Tab) 50 mg PO QDAY [facility] Last Admin: 03/04/21 11:52 Dose: 50 mg Documented by: Metoclopramide HCl (Metoclopramide 10 Mg/2 Ml Inj) 10 mg IV Q6H PRN PRN Reason: Nausea And Vomiting Metoprolol Tartrate (Metoprolol Tartrate 25 Mg Tab) 12.5 mg PO BID [facility] Last Admin: 03/04/21 11:52 Dose: 12.5 mg Documented by: Mirtazapine (Mirtazapine 15 Mg Tab) 15 mg PO QHS [facility] Ondansetron HCl (Ondansetron 4 Mg/2 Ml Inj) 4 mg IV Q4H PRN PRN Reason: Nausea And Vomiting Oxycodone/Acetaminophen (Oxycodone /Acetaminophen 5-325mg Tab) 1 tab PO Q6H PRN PRN Reason: Pain, Moderate (4-6) Sodium Chloride (Sodium Chloride 0.9% 10 Ml Flush Syringe) 10 ml IV BID [facility] Sodium Chloride (Sodium Chloride 0.9% 10 Ml Flush Syringe) 10 ml IV PRN PRN PRN Reason: LINE FLUSH Torsemide (Torsemide 10 Mg Tab) 20 mg PO QDAY [facility] Last Admin: 03/04/21 12:36 Dose: 20 mg Documented by: Review of Systems All systems: negative Cardiovascular: orthopnea, shortness of breath Respiratory: shortness of breath Gastrointestinal: other (distended), no abdominal pain, no nausea, no vomiting, no diarrhea Musculoskeletal: fractures (knee) Exam - Physical Exam Narrative exam: VITAL SIGNS: Reviewed. GENERAL: The patient appears normally developed, cachectic vital signs as documented. HEAD: No signs of head trauma. EYES: Pupils are equal. Extraocular motions intact. EARS: Hearing grossly intact. MOUTH: Oropharynx is normal. NECK: No adenopathy, no JVD. CHEST: Chest with diminished breath sounds bilaterally. No wheezes, rales, or rhonchi. CARDIAC: Regular rate and rhythm. S1 and S2, without murmurs, gallops, or rubs. VASCULAR: No Edema. Peripheral pulses normal and equal in all extremities. ABDOMEN: Soft, protuberant with fluid shift non tender. No rebound or guardin g, and no masses palpated. Bowel Sounds normal. MUSCULOSKELETAL: Tender in the right knee to touch. Good range of motion of all major joints. Extremities without clubbing, cyanosis or edema. NEUROLOGIC EXAM: Alert and oriented x 3 No focal sensory or strength deficits. Speech normal. Follows commands. PSYCHIATRIC: Mood normal. SKIN: detail exam as documented in skin assessment - Constitutional Vitals: Temp Pulse Resp BP Pulse Ox 98.4 F 87 16 117/59 97 03/04/21 07:37 03/04/21 12:01 03/04/21 12:01 03/04/21 12:01 03/04/21 12:01 Results - Labs CBC & Chem 7: 03/04/21 09:14 03/04/21 09:14 Labs: Laboratory Last Values WBC 3.4 K/mm3 (4.5-11.0) L 03/04/21 09:14 RBC 2.78 M/mm3 (3.65-5.03) L 03/04/21 09:14 Hgb 7.8 gm/dl (10.1-14.3) L 03/04/21 09:14 Hct 24.4 % (30.3-42.9) L 03/04/21 09:14 MCV 88 fl (79-97) 03/04/21 09:14 MCH 28 pg (28-32) 03/04/21 09:14 MCHC 32 % (30-34) 03/04/21 09:14 RDW 19.5 % (13.2-15.2) H 03/04/21 09:14 Plt Count 42 K/mm3 (140-440) L 03/04/21 09:14 PT 16.5 Sec. (12.2-14.9) H 03/04/21 09:14 INR 1.27 (0.87-1.13) H 03/04/21 09:14 Sodium 139 mmol/L (137-145) 03/04/21 09:14 Potassium 3.3 mmol/L (3.6-5.0) L 03/04/21 09:14 Chloride 94.9 mmol/L (98-107) L 03/04/21 09:14 Carbon Dioxide 31 mmol/L (22-30) H 03/04/21 09:14 Anion Gap 16 mmol/L 03/04/21 09:14 BUN 26 mg/dL (7-17) H 03/04/21 09:14 Creatinine 6.7 mg/dL (0.6-1.2) H 03/04/21 09:14 Estimated GFR 8 ml/min 03/04/21 09:14 BUN/Creatinine Ratio 4 % 03/04/21 09:14 Glucose 81 mg/dL (65-100) 03/04/21 09:14 Calcium 8.4 mg/dL (8.4-10.2) 03/04/21 09:14 Magnesium 1.90 mg/dL (1.7-2.3) 03/04/21 09:14 Total Creatine Kinase 36 units/L (30-135) 03/04/21 09:14 NT-Pro-B Natriuret Pep > 88114 pg/mL (0-900) H 03/04/21 09:14 Assessment and Plan Assessment and plan: Patient is a 61-year-old -[place] female with known history of end-stage renal disease on hemodialysis on Tuesdays, and Saturdays, CHF, hypertension, diabetes mellitus, seizure disorder, CVA, COPD on chronic home oxygen presents to the emergency room today with complaint of shortness of breath, abdominal distention and low blood counts. Patient was not in the hospital and left AGAINST MEDICAL ADVICE even following diagnosis of right knee fracture did appear to be acute worsening shortness of breath. Considering improvement in respiratory status after dialysis she signed out against AMA she tells me that he was requesting that to go take care of her grandchild. She had a time is also pending paracentesis when she left AGAINST MEDICAL ADVICE She returns today with worsening ascites and fluid overload symptomatic requesting further evaluation and admission. Work-up in the emergency room today reveals hemoglobin level of 7.8 and Potassium level was low at 3.3. During this admission she required a unit of packed red blood cell. He denies any nausea vomiting diarrhea she denies any chest pain at this time. She does use home oxygen. (1) End stage renal disease on dialysis Current Visit: Yes Status: Chronic Plan to address problem: Patient on dialysis on Saturday, and Saturday. Awaits nephrology evaluation and recommendations. (2) Anemia in chronic kidney disease Current Visit: Yes Status: Chronic Qualifiers: Plan to address problem: We will monitor CBC. Patient will be transfused packed red blood cells if needed. (3) Ascites Current Visit: No Status: Chronic Plan to address problem: Patient to be scheduled for paracentesis. Due to being the weekend the ED doctor has graciously agreed to perform thoracentesis at bedside patient may still need further study done by diagnostic radiology. (4) Hypokalemia Current Visit: Yes Status: Acute Plan to address problem: Potassium repleted. We will monitor chemistry. (5) right knee pain with acute displaced fracture Will obtain orthopedic consult (6) chronic thrombocytopenia (7) diabetes mellitus (8) prior history of stroke (9) DVT prophylaxis Current Visit: No Status: Acute Plan to address problem: Patient placed on sequential compression device due to chronic thrombocytopenia will avoid heparin-like products. We will also hold Plavix.. (7) Full code status Current Visit: No Status: Acute Plan to address problem: Patient is a full code. Discussed extensively about noncompliance patient verbalized understanding will be more compliant Advance Directives: Yes Plan of care discussed with patient/family: Yes
[2021-03-04] MEDS: GABAPENTIN 400 MG CAP PO SCH (13:54)
[2021-03-04] MEDS ORDERED: NON-FORMULARY EACH (Gabapentin [Neurontin] 600 MG Tablet) PO SCH (14:00)
[2021-03-04] MEDS ORDERED: SODIUM CHLORIDE 0.9% 100 ML IV PRN (15:02)
[2021-03-04 16:40] LABS: Total Cells Counted 100 /mm3
--- NOTE | 2021-03-04 19:34 | Event Note ---
Date: 03/04/21 Consent obtained from patient for HD, ok to proceed with HD
[2021-03-05] MEDS: METOPROLOL TARTRATE 25 MG TAB PO SCH ×3 (00:45→22:43)
[2021-03-05] MEDS: levETIRAcetam 500 MG TAB PO SCH ×3 (00:45→22:42)
[2021-03-05] MEDS: hydrALAZINE 25 MG TAB PO SCH ×3 (00:46→22:47)
[2021-03-05] MEDS: GABAPENTIN 400 MG CAP PO SCH ×4 (00:46→20:41)
[2021-03-05] MEDS: MIRTAZAPINE 15 MG TAB PO SCH ×2 (00:51→22:42)
[2021-03-05] MEDS: CALCIUM ACETATE 667 MG CAP PO SCH ×3 (08:44→17:00)
[2021-03-05] MEDS: ASPIRIN EC 81 MG TAB PO SCH (09:32)
[2021-03-05] MEDS: TORSEMIDE 10 MG TAB PO SCH (09:32)
[2021-03-05] MEDS: CALCITRIOL 0.5 MCG CAP PO SCH (09:32)
[2021-03-05 09:39] LABS: Hematocrit 24.5 % (30.3-42.9); Hemoglobin 7.7 gm/dl (10.1-14.3); Mean Corpuscular HGB Conc 31 % (30-34); Mean Corpuscular Volume 90 fl (79-97); Red Blood Count 2.71 M/mm3 (3.65-5.03)
[2021-03-05 09:45] LABS: Platelet Count 38 K/mm3 (140-440); Red Cell Distribution Width 20.2 % (13.2-15.2)
[2021-03-05 09:48] LABS: Albumin 3.3 g/dL (3.9-5); Blood Urea Nitrogen 17 mg/dL (7-17); Calcium 8.5 mg/dL (8.4-10.2); Hemolysis Index 2
[2021-03-05 09:52] LABS: Alanine Aminotransferase < 5 units/L (7-56); BUN/Creatinine Ratio 4
[2021-03-05] MEDS: LOSARTAN 50 MG TAB PO SCH (10:00)
--- NOTE | 2021-03-05 13:02 | Progress Note ---
Assessment and Plan Assessment and plan: Patient is a 61-year-old -[place] female with known history of end-stage renal disease on hemodialysis on Tuesdays, and Saturdays, CHF, hypertension, diabetes mellitus, seizure disorder, CVA, COPD on chronic home oxygen presents to the emergency room today with complaint of shortness of breath, abdominal distention and low blood counts. Patient was not in the hospital and left AGAINST MEDICAL ADVICE even following diagnosis of right knee fracture did appear to be acute worsening shortness of breath. Considering improvement in respiratory status after dialysis she signed out against AMA she tells me that he was requesting that to go take care of her grandchild. She had a time is also pending paracentesis when she left AGAINST MEDICAL ADVICE She returns today with worsening ascites and fluid overload symptomatic requesting further evaluation and admission. Work-up in the emergency room today reveals hemoglobin level of 7.8 and Potassium level was low at 3.3. During this admission she required a unit of packed red blood cell. He denies any nausea vomiting diarrhea she denies any chest pain at this time. She does use home oxygen. 03/05: Continue supportive care, anticipate further paracentesis in AM. Hematology consult due to noted Pancytopenia. (1) End stage renal disease on dialysis Current Visit: Yes Status: Chronic Plan to address problem: Patient on dialysis on Saturday, and Saturday. Awaits nephrology evaluation and recommendations. (2) Anemia in chronic kidney disease Current Visit: Yes Status: Chronic Qualifiers: Plan to address problem: We will monitor CBC. Patient will be transfused packed red blood cells if needed. (3) Ascites Current Visit: No Status: Chronic Plan to address problem: Patient to be scheduled for paracentesis. Due to being the weekend the ED doctor has graciously agreed to perform thoracentesis at bedside patient may still need further study done by diagnostic radiology. (4) Hypokalemia Current Visit: Yes Status: Acute Plan to address problem: Potassium repleted. We will monitor chemistry. (5) right knee pain with acute displaced fracture Will obtain orthopedic consult (6) chronic thrombocytopenia (7) diabetes mellitus (8) prior history of stroke (9) DVT prophylaxis Current Visit: No Status: Acute Plan to address problem: Patient placed on sequential compression device due to chronic thrombocytopenia will avoid heparin-like products. We will also hold Plavix.. (7) Full code status Current Visit: No Status: Acute Plan to address problem: Patient is a full code. Discussed extensively about noncompliance patient verbalized understanding will be more compliant History Interval history: Patient seen and examined no acute distress continues with leg pain. Hospitalist Physical - Physical exam Narrative exam: VITAL SIGNS: Reviewed. GENERAL: The patient appears normally developed, cachectic vital signs as documented. HEAD: No signs of head trauma. EYES: Pupils are equal. Extraocular motions intact. EARS: Hearing grossly intact. MOUTH: Oropharynx is normal. NECK: No adenopathy, no JVD. CHEST: Chest with diminished breath sounds bilaterally. No wheezes, rales, or rhonchi. CARDIAC: Regular rate and rhythm. S1 and S2, without murmurs, gallops, or rubs. VASCULAR: No Edema. Peripheral pulses normal and equal in all extremities. ABDOMEN: Soft, protuberant with fluid shift non tender. No rebound or guarding, and no masses palpated. Bowel Sounds normal. MUSCULOSKELETAL: Tender in the right knee to touch. Good range of motion of all major joints. Extremities without clubbing, cyanosis or edema. NEUROLOGIC EXAM: Alert and oriented x 3 No focal sensory or strength deficits. Speech normal. Follows commands. PSYCHIATRIC: Mood normal. SKIN: detail exam as documented in skin assessment - Constitutional Vitals: Temp Pulse Resp BP Pulse Ox 97.6 F 71 20 107/62 99 03/05/21 03:45 03/05/21 03:45 03/05/21 09:12 03/05/21 09:12 03/05/21 03:45 Results - Labs CBC & Chem 7: 03/05/21 08:20 03/05/21 08:20 Labs: Laboratory Last Values WBC 2.0 K/mm3 (4.5-11.0) L 03/05/21 08:20 RBC 2.71 M/mm3 (3.65-5.03) L 03/05/21 08:20 Hgb 7.7 gm/dl (10.1-14.3) L 03/05/21 08:20 Hct 24.5 % (30.3-42.9) L 03/05/21 08:20 MCV 90 fl (79-97) 03/05/21 08:20 MCH 28 pg (28-32) 03/05/21 08:20 MCHC 31 % (30-34) 03/05/21 08:20 RDW 20.2 % (13.2-15.2) H 03/05/21 08:20 Plt Count 38 K/mm3 (140-440) L 03/05/21 08:20 PT 16.5 Sec. (12.2-14.9) H 03/04/21 09:14 INR 1.27 (0.87-1.13) H 03/04/21 09:14 Sodium 141 mmol/L (137-145) 03/05/21 08:20 Potassium 3.9 mmol/L (3.6-5.0) 03/05/21 08:20 Chloride 99.5 mmol/L (98-107) 03/05/21 08:20 Carbon Dioxide 34 mmol/L (22-30) H 03/05/21 08:20 Anion Gap 11 mmol/L 03/05/21 08:20 BUN 17 mg/dL (7-17) 03/05/21 08:20 Creatinine 4.7 mg/dL (0.6-1.2) H 03/05/21 08:20 Estimated GFR 11 ml/min 03/05/21 08:20 BUN/Creatinine Ratio 4 % 03/05/21 08:20 Glucose 73 mg/dL (65-100) 03/05/21 08:20 Calcium 8.5 mg/dL (8.4-10.2) 03/05/21 08:20 Magnesium 1.90 mg/dL (1.7-2.3) 03/04/21 09:14 Total Bilirubin 0.80 mg/dL (0.1-1.2) 03/05/21 08:20 AST 11 units/L (5-40) 03/05/21 08:20 ALT < 5 units/L (7-56) L 03/05/21 08:20 Alkaline Phosphatase 77 units/L (35-129) 03/05/21 08:20 Total Creatine Kinase 36 units/L (30-135) 03/04/21 09:14 NT-Pro-B Natriuret Pep > 66333 pg/mL (0-900) H 03/04/21 09:14 Total Protein 6.6 g/dL (6.3-8.2) 03/05/21 08:20 Albumin 3.3 g/dL (3.9-5) L 03/05/21 08:20 Albumin/Globulin Ratio 1.0 % 03/05/21 08:20 Fluid Type Peritoneal 03/04/21 Unknown Fluid Color Yellow 03/04/21 Unknown Fluid Appearance Cloudy 03/04/21 Unknown Fluid WBC 50 /mm3 03/04/21 Unknown Fluid RBC 9625 /mm3 03/04/21 Unknown Fluid Seg Neutrophils 4.0 % 03/04/21 Unknown Fluid Lymphocytes 7.0 % 03/04/21 Unknown Fluid Monocytes 89.0 % 03/04/21 Unknown Microbiology: Microbiology 03/04/21 14:28 Peritioneal Dialysate Peritoneal Dialysate Culture - Preliminary Active Medications - Current Medications Current Medications: Generic Name Dose Route Start Last Admin Trade Name Freq PRN Reason Stop Dose Admin Acetaminophen 650 mg 03/04/21 11:04 Acetaminophen 325 Mg Tab PO Q4H PRN Pain MILD(1-3)/Fever >100.5/MCDANIEL Albuterol 2.5 mg 03/04/21 11:28 Albuterol 2.5 Mg/3 Ml Nebu IH Q4H PRN Shortness Of Breath Aspirin 81 mg 03/04/21 12:00 03/05/21 09:32 Aspirin Ec 81 Mg Tab PO 81 mg QDAY [facility] Administration Atorvastatin Calcium 40 mg 03/04/21 22:00 03/05/21 00:45 Atorvastatin 40 Mg Tab PO 40 mg QHS [facility] Administration Calcitriol 1 mcg 03/04/21 12:00 03/05/21 09:32 Calcitriol 0.5 Mcg Cap PO 1 mcg QDAY [facility] Administration Calcium Acetate 2,001 mg 03/04/21 12:00 03/05/21 08:44 Calcium Acetate 667 Mg Cap PO 2,001 mg TIDWM [facility] Administration Fluticasone Propionate 50 mcg 03/04/21 11:01 Fluticasone Propionate Nasal [place] 16 Gm NS QDAY PRN Nasal Congestion Gabapentin 800 mg 03/04/21 14:00 03/05/21 08:44 Gabapentin 400 Mg Cap PO 800 mg TID [facility] Administration Hydralazine HCl 50 mg 03/04/21 12:00 03/05/21 00:46 Hydralazine 25 Mg Tab PO 50 mg BID [facility] Administration Sodium Chloride 100 mls @ 999 mls/hr 03/04/21 15:02 Nacl 0.9% IV GREY PRN Hypotension Levetiracetam 500 mg 03/04/21 12:00 03/05/21 09:32 Levetiracetam 500 Mg Tab PO 500 mg BID [facility] Administration Loperamide HCl 2 mg 03/04/21 11:01 03/05/21 00:46 Loperamide 2 Mg Cap PO 2 mg Q4H PRN Administration Diarrhea Losartan Potassium 50 mg 03/04/21 12:00 03/04/21 11:52 Losartan 50 Mg Tab PO 50 mg QDAY [facility] Administration Metoclopramide HCl 10 mg 03/04/21 10:56 Metoclopramide 10 Mg/2 Ml Inj IV Q6H PRN Nausea And Vomiting Metoprolol Tartrate 12.5 mg 03/04/21 12:00 03/05/21 00:45 Metoprolol Tartrate 25 Mg Tab PO 12.5 mg BID [facility] Administration Mirtazapine 15 mg 03/04/21 22:00 03/05/21 00:51 Mirtazapine 15 Mg Tab PO Not Given QHS [facility] Ondansetron HCl 4 mg 03/04/21 11:11 Ondansetron 4 Mg/2 Ml Inj IV Q4H PRN Nausea And Vomiting Oxycodone/Acetaminophen 1 tab 03/04/21 11:04 Oxycodone /Acetaminophen 5-325mg Tab PO Q6H PRN Pain, Moderate (4-6) Sodium Chloride 10 ml 03/04/21 22:00 03/05/21 09:33 Sodium Chloride 0.9% 10 Ml Flush Syringe IV 10 ml BID [facility] Administration Sodium Chloride 10 ml 03/04/21 10:56 Sodium Chloride 0.9% 10 Ml Flush Syringe IV PRN PRN LINE FLUSH Torsemide 20 mg 03/04/21 12:00 03/05/21 09:32 Torsemide 10 Mg Tab PO 20 mg QDAY [facility] Administration
--- NOTE | 2021-03-05 14:28 | Electrocardiograph Report ---
[facility] Test Date: 2021-03-04 Test Time: 07:55:51 Pat Name: JOSE MCNAIR Department: Room: A384 1 Gender: F [employer]: [phone] : 1960 Requested By: RAYNE ROCHA Order Number: [id number] Reading MD: Major Mixon Measurements Intervals [place] Rate: 83 P: 26 MS: 166 QRS: -10 QRSD: 103 T: 157 QT: 398 QTc: 468 Interpretive Statements Sinus rhythm Low voltage QRS Poor R wave progress Nonspecific T wave abnormality Compared to ECG 02/28/2021 18:16:11 No significant change Electronically Signed On 03-05-2021 14:28:26 EDT by Major Mixon
[2021-03-05 14:32] LABS: Total Cells Counted 100
[2021-03-05 14:33] LABS: Anisocytosis 1+
[2021-03-05 14:34] LABS: Hypochromasia Few; Ovalocytes 1+; Platelet Estimate Consistent w Auto
--- NOTE | 2021-03-05 20:18 | Consultation ---
History of Present Illness - Reason for Consult Consult date: 03/05/21 end stage renal disease - History of Present Illness This is a 61-year-old woman with end-stage renal disease on hemodialysis TTS, congestive heart failure, diabetes and hypertension who was recently admitted to the hospital but left AGAINST MEDICAL ADVICE and now presents with progressive shortness of breath and abdominal distention. Nephrology was consulted for ESRD management. Patient denies chest pain, presyncope and syncope. Past History Past Medical History: diabetes, ESRD, hypertension, hyperlipidemia, seizures, stroke Past Surgical History: Other (See full documentation) Social history: Lives alone, full code Family history: no significant family history Medications and Allergies Allergies Allergy/AdvReac Type Severity Reaction Status Date / Time No Known Allergies Allergy Verified 03/04/21 07:25 Home Medications Medication Instructions Recorded Confirmed Last Taken Type Fluticasone [Flonase] 1 spray NS QDAY PRN 12/01/19 03/01/21 01/18/20 History Gabapentin [Neurontin] 800 mg PO TID #90 tab 02/02/20 03/01/21 02/20/20 Rx Mirtazapine [Remeron 15mg TAB] 15 mg PO QHS #30 tab 02/02/20 03/01/21 02/20/20 Rx Acetaminophen [Acetaminophen TAB] 650 mg PO Q4H PRN tablet 04/21/20 03/01/21 Unknown Rx Aspirin EC [Halfprin EC] 81 mg PO QDAY #30 tablet 04/21/20 03/01/21 Unknown Rx AtorvaSTATin [Lipitor] 40 mg PO QHS #30 tablet 04/21/20 03/01/21 Unknown Rx Calcium Acetate [Phoslo] 2,001 mg PO TIDWM #30 capsule 04/21/20 03/01/21 Unknown Rx Clopidogrel [Plavix] 75 mg PO QDAY #30 tab 04/21/20 03/01/21 Unknown Rx Epoetin Hiro 20,000 Unit [Procrit] 20,000 unit IV GREY vial 04/21/20 03/01/21 Unknown Rx Loperamide [Imodium] 2 mg PO Q4HR PRN #24 capsule 04/21/20 03/01/21 Unknown Rx Losartan [Cozaar] 50 mg PO QDAY #30 tablet 04/21/20 03/01/21 Unknown Rx Metoprolol [Lopressor TAB] 12.5 mg PO BID #60 tablet 04/21/20 03/01/21 Unknown Rx Torsemide [Demadex] 20 mg PO QDAY tablet 04/21/20 03/01/21 Unknown Rx calcitrioL [Rocaltrol] 1 mcg PO QDAY #30 cap 04/21/20 03/01/21 Unknown Rx hydrALAZINE [Apresoline TAB] 50 mg PO BID #120 tablet 04/21/20 03/01/21 Unknown Rx levETIRAcetam [Keppra TAB] 500 mg PO BID #60 tablet 04/21/20 03/01/21 Unknown Rx Albuterol Sulfate [Proair 90 mcg IH Q6HR PRN 05/17/20 03/01/21 Unknown History Digihaler] Azithromycin [Zithromax Z-TIMOTHY] 250 mg PO DAILY #6 tab 05/18/20 03/01/21 Unknown Rx Ondansetron [Zofran ODT TAB] 8 mg PO Q8HR PRN #10 05/18/20 03/01/21 Unknown Rx Calcium Carbonate [Tums 500MG CHEW] 750 mg PO QDAY 03/01/21 03/01/21 Unknown History Active Meds: Active Medications Acetaminophen (Acetaminophen 325 Mg Tab) 650 mg PO Q4H PRN PRN Reason: Pain MILD(1-3)/Fever >100.5/MCDANIEL Albuterol (Albuterol 2.5 Mg/3 Ml Nebu) 2.5 mg IH Q4H PRN PRN Reason: Shortness Of Breath Aspirin (Aspirin Ec 81 Mg Tab) 81 mg PO QDAY [facility] Last Admin: 03/05/21 09:32 Dose: 81 mg Documented by: Atorvastatin Calcium (Atorvastatin 40 Mg Tab) 40 mg PO QHS [facility] Last Admin: 03/05/21 00:45 Dose: 40 mg Documented by: Calcitriol (Calcitriol 0.5 Mcg Cap) 1 mcg PO QDAY [facility] Last Admin: 03/05/21 09:32 Dose: 1 mcg Documented by: Calcium Acetate (Calcium Acetate 667 Mg Cap) 2,001 mg PO TIDWM [facility] Last Admin: 03/05/21 17:00 Dose: Not Given Documented by: Fluticasone Propionate (Fluticasone Propionate Nasal [place] 16 Gm) 50 mcg NS QDAY PRN PRN Reason: Nasal Congestion Gabapentin (Gabapentin 400 Mg Cap) 800 mg PO TID [facility] Last Admin: 03/05/21 14:03 Dose: 800 mg Documented by: Hydralazine HCl (Hydralazine 25 Mg Tab) 50 mg PO BID [facility] Last Admin: 03/05/21 10:00 Dose: Not Given Documented by: Sodium Chloride (Nacl 0.9%) 100 mls @ 999 mls/hr IV GREY PRN PRN Reason: Hypotension Levetiracetam (Levetiracetam 500 Mg Tab) 500 mg PO BID [facility] Last Admin: 03/05/21 09:32 Dose: 500 mg Documented by: Loperamide HCl (Loperamide 2 Mg Cap) 2 mg PO Q4H PRN PRN Reason: Diarrhea Last Admin: 03/05/21 00:46 Dose: 2 mg Documented by: Losartan Potassium (Losartan 50 Mg Tab) 50 mg PO QDAY [facility] Last Admin: 03/05/21 10:00 Dose: Not Given Documented by: Metoclopramide HCl (Metoclopramide 10 Mg/2 Ml Inj) 10 mg IV Q6H PRN PRN Reason: Nausea And Vomiting Metoprolol Tartrate (Metoprolol Tartrate 25 Mg Tab) 12.5 mg PO BID [facility] Last Admin: 03/05/21 10:00 Dose: Not Given Documented by: Mirtazapine (Mirtazapine 15 Mg Tab) 15 mg PO QHS [facility] Last Admin: 03/05/21 00:51 Dose: Not Given Documented by: Ondansetron HCl (Ondansetron 4 Mg/2 Ml Inj) 4 mg IV Q4H PRN PRN Reason: Nausea And Vomiting Oxycodone/Acetaminophen (Oxycodone /Acetaminophen 5-325mg Tab) 1 tab PO Q6H PRN PRN Reason: Pain, Moderate (4-6) Sodium Chloride (Sodium Chloride 0.9% 10 Ml Flush Syringe) 10 ml IV BID [facility] Last Admin: 03/05/21 09:33 Dose: 10 ml Documented by: Sodium Chloride (Sodium Chloride 0.9% 10 Ml Flush Syringe) 10 ml IV PRN PRN PRN Reason: LINE FLUSH Torsemide (Torsemide 10 Mg Tab) 20 mg PO QDAY [facility] Last Admin: 03/05/21 09:32 Dose: 20 mg Documented by: Review of Systems Constitutional: no fever, no chills Ears, nose, mouth and throat: no nasal congestion, no nasal discharge Cardiovascular: no chest pain, no leg edema Respiratory: shortness of breath, no congestion Gastrointestinal: abdominal pain, no nausea, no vomiting Integumentary: no rash, no pruritis Neurological: no seizures, no syncope Psychiatric: no anxiety, no paranoia Endocrine: no excessive thirst, no polydipsia Allergic/Immunologic: no urticaria Exam - Vital Signs Vital signs: Vital Signs Temp Pulse Resp BP Pulse Ox 98.4 F 83 22 142/69 100 03/04/21 07:37 03/04/21 07:37 03/04/21 07:37 03/04/21 07:37 03/04/21 07:37 - Physical Exam Narrative exam: General: No acute distress HEENT: Oral mucosa moist Neck: Supple, no JVD Chest: Clear to auscultation bilaterally Heart: RRR, S1 and S2, no pericardial rub Abdomen: Soft, nontender, no renal bruit. Extremity: No peripheral cyanosis, edema Neurological: Alert, awake, no asterixis Dermatology: No skin rash Psych: No agitation Musculoskeletal: No joint effusion Results - Lab Results 03/05/21 08:20 03/05/21 08:20 Most recent lab results Calcium 8.5 mg/dL (8.4-10.2) 03/05/21 08:20 Magnesium 1.90 mg/dL (1.7-2.3) 03/04/21 09:14 Assessment and Plan Assessment - End-stage renal disease on hemodialysis - Hypertension - Anemia of ESRD - Hyperparathyroidism - Hyperphosphatemia Recommendations - Continue HD TTS - Monitor labs and volume status daily and assess need for additional dialysis session - Continue home antihypertensives - Hold antihypertensives on hemodialysis days for systolics less than 160 - Epogen with HD - Continue phosphorus binders - ESRD diet with 1.4 g/kg per day protein - Renally dose medication for creatinine clearance less than 15 cc/min - Gabapentin dose higher than recommended for ESRD, recommend adjustment to ESRD dosing to 100 mg nightly
[2021-03-06] MEDS: GABAPENTIN 400 MG CAP PO SCH ×3 (08:00→21:12)
[2021-03-06] MEDS: CALCIUM ACETATE 667 MG CAP PO SCH ×3 (08:00→18:00)
[2021-03-06] MEDS: levETIRAcetam 500 MG TAB PO SCH ×2 (09:31→21:22)
[2021-03-06] MEDS: CALCITRIOL 0.5 MCG CAP PO SCH (09:32)
[2021-03-06] MEDS: TORSEMIDE 10 MG TAB PO SCH (09:32)
[2021-03-06] MEDS: hydrALAZINE 25 MG TAB PO SCH ×2 (09:32→21:22)
[2021-03-06] MEDS: ASPIRIN EC 81 MG TAB PO SCH (09:32)
[2021-03-06] MEDS: LOSARTAN 50 MG TAB PO SCH (09:32)
[2021-03-06] MEDS: METOPROLOL TARTRATE 25 MG TAB PO SCH ×2 (09:33→21:23)
--- NOTE | 2021-03-06 09:51 | Hem/Onc Consultation ---
History of Present Illness - History of Present Illness heme onc prelim data review 61yo disabled AA woman with ESRD requiring HD, cirrhosis, intermittent ascites chronic anemia, h/o a few transfusions over the past few years h/o stroke per notes, emphysema requiring home oxygen recent R knee injury-->does she have hematomas? retgroperitoneal hematoma? eval for SOb and abd distension-->needing paracentesis this admission last week found to have severe anemia Hgb 7-8-->RBC transfusion found to have plt count lower than her "baseline" 50-100, now 30-50 PMH: ESRD, kidney biopsy 2016 diabetic nephropathy MEDS: Epoietin per nephrology DATA REVIEWED BELOW plt counts 30-50 Hgb 7.7 PT INR 1.27 \\ IMP: pancytopenia due to cirrhosis/presumed hypersplenism doubt heme malignancy plt count "below her baseline" could be related to last week's RBC transfusion REC: OK for minor procedures with low plt count 30-50 OK for paracentesis from heme perspective no transfusions planned today whenever HCT<23 consider RBC transfusion try to plan RBC transfusions around HD labs to include fibrionogen, Hgb electrophoresis Laboratory Last Values WBC 2.0 K/mm3 (4.5-11.0) L 03/05/21 08:20 Hgb 7.7 gm/dl (10.1-14.3) L 03/05/21 08:20 Hct 24.5 % (30.3-42.9) L 03/05/21 08:20 Plt Count 38 K/mm3 (140-440) L 03/05/21 08:20 INR 1.27 (0.87-1.13) H 03/04/21 09:14 Total Bilirubin 0.80 mg/dL (0.1-1.2) 03/05/21 08:20 AST 11 units/L (5-40) 03/05/21 08:20 ALT < 5 units/L (7-56) L 03/05/21 08:20 Alkaline Phosphatase 77 units/L (35-129) 03/05/21 08:20 NT-Pro-B Natriuret Pep > 81508 pg/mL (0-900) H 03/04/21 09:14 Fluid Monocytes 89.0 % 03/04/21 Unknown Past History Past Medical History: diabetes, ESRD, hypertension, hyperlipidemia, seizures, stroke Past Surgical History: Other (See full documentation) Social history: Lives alone, full code Family history: no significant family history Medications and Allergies Allergies Allergy/AdvReac Type Severity Reaction Status Date / Time No Known Allergies Allergy Verified 03/04/21 07:25 Home Medications Medication Instructions Recorded Confirmed Last Taken Type Fluticasone [Flonase] 1 spray NS QDAY PRN 12/01/19 03/06/21 03/04/21 History Gabapentin [Neurontin] 800 mg PO TID #90 tab 02/02/20 03/06/21 03/04/21 Rx Mirtazapine [Remeron 15mg TAB] 15 mg PO QHS #30 tab 02/02/20 03/06/21 03/04/21 Rx Acetaminophen [Acetaminophen TAB] 650 mg PO Q4H PRN tablet 04/21/20 03/06/21 03/04/21 Rx Aspirin EC [Halfprin EC] 81 mg PO QDAY #30 tablet 04/21/20 03/06/21 03/04/21 Rx AtorvaSTATin [Lipitor] 40 mg PO QHS #30 tablet 04/21/20 03/06/21 03/04/21 Rx Calcium Acetate [Phoslo] 2,001 mg PO TIDWM #30 capsule 04/21/20 03/06/21 03/04/21 Rx Clopidogrel [Plavix] 75 mg PO QDAY #30 tab 04/21/20 03/06/21 03/04/21 Rx Epoetin Hiro 20,000 Unit [Procrit] 20,000 unit IV GREY vial 04/21/20 03/06/21 03/04/21 Rx Loperamide [Imodium] 2 mg PO Q4HR PRN #24 capsule 04/21/20 03/06/21 03/04/21 Rx Losartan [Cozaar] 50 mg PO QDAY #30 tablet 04/21/20 03/06/21 03/04/21 Rx Metoprolol [Lopressor TAB] 12.5 mg PO BID #60 tablet 04/21/20 03/06/21 03/04/21 Rx Torsemide [Demadex] 20 mg PO QDAY tablet 04/21/20 03/06/21 03/04/21 Rx calcitrioL [Rocaltrol] 1 mcg PO QDAY #30 cap 04/21/20 03/06/2121 Rx hydrALAZINE [Apresoline TAB] 50 mg PO BID #120 tablet 04/21/20 03/06/21 03/04/21 Rx levETIRAcetam [Keppra TAB] 500 mg PO BID #60 tablet 04/21/20 03/06/21 03/04/21 Rx Albuterol Sulfate [Proair 90 mcg IH Q6HR PRN 05/17/20 03/06/21 03/04/21 History Digihaler] Azithromycin [Zithromax Z-TIMOTHY] 250 mg PO DAILY #6 tab 05/18/20 03/06/21 03/04/21 Rx Ondansetron [Zofran ODT TAB] 8 mg PO Q8HR PRN #10 05/18/20 03/06/21 03/04/21 Rx Calcium Carbonate [Tums 500MG CHEW] 750 mg PO QDAY 03/01/21 03/06/21 03/04/21 History Active Meds: Active Medications Acetaminophen (Acetaminophen 325 Mg Tab) 650 mg PO Q4H PRN PRN Reason: Pain MILD(1-3)/Fever >100.5/MCDANIEL Albuterol (Albuterol 2.5 Mg/3 Ml Nebu) 2.5 mg IH Q4H PRN PRN Reason: Shortness Of Breath Aspirin (Aspirin Ec 81 Mg Tab) 81 mg PO QDAY [facility] Last Admin: 03/06/21 09:32 Dose: 81 mg Documented by: Atorvastatin Calcium (Atorvastatin 40 Mg Tab) 40 mg PO QHS [facility] Last Admin: 03/05/21 22:42 Dose: 40 mg Documented by: Calcitriol (Calcitriol 0.5 Mcg Cap) 1 mcg PO QDAY [facility] Last Admin: 03/06/21 09:32 Dose: 1 mcg Documented by: Calcium Acetate (Calcium Acetate 667 Mg Cap) 2,001 mg PO TIDWM [facility] Last Admin: 03/06/21 08:00 Dose: 2,001 mg Documented by: Fluticasone Propionate (Fluticasone Propionate Nasal [place] 16 Gm) 50 mcg NS QDAY PRN PRN Reason: Nasal Congestion Gabapentin (Gabapentin 400 Mg Cap) 800 mg PO TID [facility] Last Admin: 03/06/21 08:00 Dose: 800 mg Documented by: Hydralazine HCl (Hydralazine 25 Mg Tab) 50 mg PO BID [facility] Last Admin: 03/06/21 09:32 Dose: 50 mg Documented by: Sodium Chloride (Nacl 0.9%) 100 mls @ 999 mls/hr IV GREY PRN PRN Reason: Hypotension Levetiracetam (Levetiracetam 500 Mg Tab) 500 mg PO BID [facility] Last Admin: 03/06/21 09:31 Dose: 500 mg Documented by: Loperamide HCl (Loperamide 2 Mg Cap) 2 mg PO Q4H PRN PRN Reason: Diarrhea Last Admin: 03/05/21 00:46 Dose: 2 mg Documented by: Losartan Potassium (Losartan 50 Mg Tab) 50 mg PO QDAY [facility] Last Admin: 03/06/21 09:32 Dose: 50 mg Documented by: Metoclopramide HCl (Metoclopramide 10 Mg/2 Ml Inj) 10 mg IV Q6H PRN PRN Reason: Nausea And Vomiting Metoprolol Tartrate (Metoprolol Tartrate 25 Mg Tab) 12.5 mg PO BID [facility] Last Admin: 03/06/21 09:33 Dose: 12.5 mg Documented by: Mirtazapine (Mirtazapine 15 Mg Tab) 15 mg PO QHS [facility] Last Admin: 03/05/21 22:42 Dose: 15 mg Documented by: Ondansetron HCl (Ondansetron 4 Mg/2 Ml Inj) 4 mg IV Q4H PRN PRN Reason: Nausea And Vomiting Oxycodone/Acetaminophen (Oxycodone /Acetaminophen 5-325mg Tab) 1 tab PO Q6H PRN PRN Reason: Pain, Moderate (4-6) Last Admin: 03/06/21 06:04 Dose: 1 tab Documented by: Sodium Chloride (Sodium Chloride 0.9% 10 Ml Flush Syringe) 10 ml IV BID [facility] Last Admin: 03/06/21 09:34 Dose: 10 ml Documented by: Sodium Chloride (Sodium Chloride 0.9% 10 Ml Flush Syringe) 10 ml IV PRN PRN PRN Reason: LINE FLUSH Torsemide (Torsemide 10 Mg Tab) 20 mg PO QDAY [facility] Last Admin: 03/06/21 09:32 Dose: 20 mg Documented by: Exam - Constitutional Vitals: Last Vital Signs Temp 97.2 F L 03/06/21 06:15 Pulse 75 03/06/21 06:15 Resp 18 03/06/21 06:15 BP 108/64 03/06/21 06:15 Pulse Ox 96 03/06/21 06:15 Results - Labs lab Results: Laboratory Results - last 24 hr 03/05/21 03/05/21 03/06/21 08:20 08:20 07:55 WBC 2.0 L RBC 2.71 L Hgb 7.7 L Hct 24.5 L MCV 90 MCH 28 MCHC 31 RDW 20.2 H Plt Count 38 L Add Manual Diff Complete Total Counted 100 Seg Neuts % (Manual) 70.0 Lymphocytes % (Manual) 26.0 Monocytes % (Manual) 2.0 Eosinophils % (Manual) 2.0 Nucleated RBC % Not Reportable Seg Neutrophils # Man 1.4 L Band Neutrophils # 0.0 Lymphocytes # (Manual) 0.5 L Abs React Lymphs (Man) 0.0 Monocytes # (Manual) 0.0 Eosinophils # (Manual) 0.0 Basophils # (Manual) 0.0 Metamyelocytes # 0.0 Myelocytes # 0.0 Promyelocytes # 0.0 Blast Cells # 0.0 WBC Morphology Not Reportable Hypersegmented Neuts Not Reportable Hyposegmented Neuts Not Reportable Hypogranular Neuts Not Reportable Smudge Cells Not Reportable Toxic Granulation Not Reportable Toxic Vacuolation Not Reportable Dohle Bodies Not Reportable Pelger-Huet Anomaly Not Reportable Graciela Rods Not Reportable Platelet Estimate Consistent w auto Clumped Platelets Not Reportable Plt Clumps, EDTA Not Reportable Large Platelets Not Reportable Giant Platelets Not Reportable Platelet Satelliting Not Reportable Plt Morphology Comment Not Reportable RBC Morphology Not Reportable Dimorphic RBCs Not Reportable Polychromasia Not Reportable Hypochromasia Few Poikilocytosis Not Reportable Anisocytosis 1+ Microcytosis Not Reportable Macrocytosis Not Reportable Spherocytes Not Reportable Pappenheimer Bodies Not Reportable Sickle Cells Not Reportable Target Cells Not Reportable Tear Drop Cells Not Reportable Ovalocytes 1+ Helmet Cells Not Reportable [place] Bodies Not Reportable [place] Rings Not Reportable [place] Cells Not Reportable Bite Cells Not Reportable Crenated Cell Not Reportable Elliptocytes Not Reportable Acanthocytes (Spur) Not Reportable Rouleaux Not Reportable Hemoglobin C Crystals Not Reportable Schistocytes Not Reportable Malaria parasites Not Reportable Enrrique Bodies Not Reportable Hem Pathologist Commnt No Sodium 141 Potassium 3.9 Chloride 99.5 Carbon Dioxide 34 H Anion Gap 11 BUN 17 Creatinine 4.7 H Estimated GFR 11 BUN/Creatinine Ratio 4 Glucose 73 POC Glucose 84 Calcium 8.5 Total Bilirubin 0.80 AST 11 ALT < 5 L Alkaline Phosphatase 77 Total Protein 6.6 Albumin 3.3 L Albumin/Globulin Ratio 1.0
--- NOTE | 2021-03-06 09:52 | Hem/Onc Consultation ---
History of Present Illness - History of Present Illness heme onc prelim data review 61yo disabled AA woman with ESRD requiring HD, cirrhosis, intermittent ascites chronic anemia, h/o a few transfusions over the past few years h/o stroke per notes, emphysema requiring home oxygen recent R knee injury-->does she have hematomas? retgroperitoneal hematoma? eval for SOb and abd distension-->needing paracentesis this admission last week found to have severe anemia Hgb 7-8-->RBC transfusion found to have plt count lower than her "baseline" 50-100, now 30-50 PMH: ESRD, kidney biopsy 2016 diabetic nephropathy MEDS: Epoietin per nephrology DATA REVIEWED BELOW plt counts 30-50 Hgb 7.7 PT INR 1.27 \\ IMP: pancytopenia due to cirrhosis/presumed hypersplenism doubt heme malignancy plt count "below her baseline" could be related to last week's RBC transfusion REC: OK for minor procedures with low plt count 30-50 OK for paracentesis from heme perspective no transfusions planned today whenever HCT<23 consider RBC transfusion try to plan RBC transfusions around HD labs to include fibrionogen, Hgb electrophoresis Laboratory Last Values WBC 2.0 K/mm3 (4.5-11.0) L 03/05/21 08:20 Hgb 7.7 gm/dl (10.1-14.3) L 03/05/21 08:20 Hct 24.5 % (30.3-42.9) L 03/05/21 08:20 Plt Count 38 K/mm3 (140-440) L 03/05/21 08:20 INR 1.27 (0.87-1.13) H 03/04/21 09:14 Total Bilirubin 0.80 mg/dL (0.1-1.2) 03/05/21 08:20 AST 11 units/L (5-40) 03/05/21 08:20 ALT < 5 units/L (7-56) L 03/05/21 08:20 Alkaline Phosphatase 77 units/L (35-129) 03/05/21 08:20 NT-Pro-B Natriuret Pep > 49342 pg/mL (0-900) H 03/04/21 09:14 Fluid Monocytes 89.0 % 03/04/21 Unknown Past History Past Medical History: diabetes, ESRD, hypertension, hyperlipidemia, seizures, stroke Past Surgical History: Other (See full documentation) Social history: Lives alone, full code Family history: no significant family history Medications and Allergies Allergies Allergy/AdvReac Type Severity Reaction Status Date / Time No Known Allergies Allergy Verified 03/04/21 07:25 Home Medications Medication Instructions Recorded Confirmed Last Taken Type Fluticasone [Flonase] 1 spray NS QDAY PRN 12/01/19 03/06/21 03/04/21 History Gabapentin [Neurontin] 800 mg PO TID #90 tab 02/02/20 03/06/21 03/04/21 Rx Mirtazapine [Remeron 15mg TAB] 15 mg PO QHS #30 tab 02/02/20 03/06/21 03/04/21 Rx Acetaminophen [Acetaminophen TAB] 650 mg PO Q4H PRN tablet 04/21/20 03/06/21 03/04/21 Rx Aspirin EC [Halfprin EC] 81 mg PO QDAY #30 tablet 04/21/20 03/06/21 03/04/21 Rx AtorvaSTATin [Lipitor] 40 mg PO QHS #30 tablet 04/21/20 03/06/21 03/04/21 Rx Calcium Acetate [Phoslo] 2,001 mg PO TIDWM #30 capsule 04/21/20 03/06/21 03/04/21 Rx Clopidogrel [Plavix] 75 mg PO QDAY #30 tab 04/21/20 03/06/21 03/04/21 Rx Epoetin Hiro 20,000 Unit [Procrit] 20,000 unit IV GREY vial 04/21/20 03/06/21 03/04/21 Rx Loperamide [Imodium] 2 mg PO Q4HR PRN #24 capsule 04/21/20 03/06/21 03/04/21 Rx Losartan [Cozaar] 50 mg PO QDAY #30 tablet 04/21/20 03/06/21 03/04/21 Rx Metoprolol [Lopressor TAB] 12.5 mg PO BID #60 tablet 04/21/20 03/06/21 03/04/21 Rx Torsemide [Demadex] 20 mg PO QDAY tablet 04/21/20 03/06/21 03/04/21 Rx calcitrioL [Rocaltrol] 1 mcg PO QDAY #30 cap 04/21/20 03/06/2121 Rx hydrALAZINE [Apresoline TAB] 50 mg PO BID #120 tablet 04/21/20 03/06/21 03/04/21 Rx levETIRAcetam [Keppra TAB] 500 mg PO BID #60 tablet 04/21/20 03/06/21 03/04/21 Rx Albuterol Sulfate [Proair 90 mcg IH Q6HR PRN 05/17/20 03/06/21 03/04/21 History Digihaler] Azithromycin [Zithromax Z-TIMOTHY] 250 mg PO DAILY #6 tab 05/18/20 03/06/21 03/04/21 Rx Ondansetron [Zofran ODT TAB] 8 mg PO Q8HR PRN #10 05/18/20 03/06/21 03/04/21 Rx Calcium Carbonate [Tums 500MG CHEW] 750 mg PO QDAY 03/01/21 03/06/21 03/04/21 History Active Meds: Active Medications Acetaminophen (Acetaminophen 325 Mg Tab) 650 mg PO Q4H PRN PRN Reason: Pain MILD(1-3)/Fever >100.5/MCDANIEL Albuterol (Albuterol 2.5 Mg/3 Ml Nebu) 2.5 mg IH Q4H PRN PRN Reason: Shortness Of Breath Aspirin (Aspirin Ec 81 Mg Tab) 81 mg PO QDAY [facility] Last Admin: 03/06/21 09:32 Dose: 81 mg Documented by: Atorvastatin Calcium (Atorvastatin 40 Mg Tab) 40 mg PO QHS [facility] Last Admin: 03/05/21 22:42 Dose: 40 mg Documented by: Calcitriol (Calcitriol 0.5 Mcg Cap) 1 mcg PO QDAY [facility] Last Admin: 03/06/21 09:32 Dose: 1 mcg Documented by: Calcium Acetate (Calcium Acetate 667 Mg Cap) 2,001 mg PO TIDWM [facility] Last Admin: 03/06/21 08:00 Dose: 2,001 mg Documented by: Fluticasone Propionate (Fluticasone Propionate Nasal [place] 16 Gm) 50 mcg NS QDAY PRN PRN Reason: Nasal Congestion Gabapentin (Gabapentin 400 Mg Cap) 800 mg PO TID [facility] Last Admin: 03/06/21 08:00 Dose: 800 mg Documented by: Hydralazine HCl (Hydralazine 25 Mg Tab) 50 mg PO BID [facility] Last Admin: 03/06/21 09:32 Dose: 50 mg Documented by: Sodium Chloride (Nacl 0.9%) 100 mls @ 999 mls/hr IV GREY PRN PRN Reason: Hypotension Levetiracetam (Levetiracetam 500 Mg Tab) 500 mg PO BID [facility] Last Admin: 03/06/21 09:31 Dose: 500 mg Documented by: Loperamide HCl (Loperamide 2 Mg Cap) 2 mg PO Q4H PRN PRN Reason: Diarrhea Last Admin: 03/05/21 00:46 Dose: 2 mg Documented by: Losartan Potassium (Losartan 50 Mg Tab) 50 mg PO QDAY [facility] Last Admin: 03/06/21 09:32 Dose: 50 mg Documented by: Metoclopramide HCl (Metoclopramide 10 Mg/2 Ml Inj) 10 mg IV Q6H PRN PRN Reason: Nausea And Vomiting Metoprolol Tartrate (Metoprolol Tartrate 25 Mg Tab) 12.5 mg PO BID [facility] Last Admin: 03/06/21 09:33 Dose: 12.5 mg Documented by: Mirtazapine (Mirtazapine 15 Mg Tab) 15 mg PO QHS [facility] Last Admin: 03/05/21 22:42 Dose: 15 mg Documented by: Ondansetron HCl (Ondansetron 4 Mg/2 Ml Inj) 4 mg IV Q4H PRN PRN Reason: Nausea And Vomiting Oxycodone/Acetaminophen (Oxycodone /Acetaminophen 5-325mg Tab) 1 tab PO Q6H PRN PRN Reason: Pain, Moderate (4-6) Last Admin: 03/06/21 06:04 Dose: 1 tab Documented by: Sodium Chloride (Sodium Chloride 0.9% 10 Ml Flush Syringe) 10 ml IV BID [facility] Last Admin: 03/06/21 09:34 Dose: 10 ml Documented by: Sodium Chloride (Sodium Chloride 0.9% 10 Ml Flush Syringe) 10 ml IV PRN PRN PRN Reason: LINE FLUSH Torsemide (Torsemide 10 Mg Tab) 20 mg PO QDAY [facility] Last Admin: 03/06/21 09:32 Dose: 20 mg Documented by: Exam - Constitutional Vitals: Last Vital Signs Temp 97.2 F L 03/06/21 06:15 Pulse 75 03/06/21 06:15 Resp 18 03/06/21 06:15 BP 108/64 03/06/21 06:15 Pulse Ox 96 03/06/21 06:15 Results - Labs lab Results: Laboratory Results - last 24 hr 03/05/21 03/05/21 03/06/21 08:20 08:20 07:55 Add Manual Diff Complete Total Counted 100 Seg Neuts % (Manual) 70.0 Lymphocytes % (Manual) 26.0 Monocytes % (Manual) 2.0 Eosinophils % (Manual) 2.0 Nucleated RBC % Not Reportable Seg Neutrophils # Man 1.4 L Band Neutrophils # 0.0 Lymphocytes # (Manual) 0.5 L Abs React Lymphs (Man) 0.0 Monocytes # (Manual) 0.0 Eosinophils # (Manual) 0.0 Basophils # (Manual) 0.0 Metamyelocytes # 0.0 Myelocytes # 0.0 Promyelocytes # 0.0 Blast Cells # 0.0 WBC Morphology Not Reportable Hypersegmented Neuts Not Reportable Hyposegmented Neuts Not Reportable Hypogranular Neuts Not Reportable Smudge Cells Not Reportable Toxic Granulation Not Reportable Toxic Vacuolation Not Reportable Dohle Bodies Not Reportable Pelger-Huet Anomaly Not Reportable Graciela Rods Not Reportable Platelet Estimate Consistent w auto Clumped Platelets Not Reportable Plt Clumps, EDTA Not Reportable Large Platelets Not Reportable Giant Platelets Not Reportable Platelet Satelliting Not Reportable Plt Morphology Comment Not Reportable RBC Morphology Not Reportable Dimorphic RBCs Not Reportable Polychromasia Not Reportable Hypochromasia Few Poikilocytosis Not Reportable Anisocytosis 1+ Microcytosis Not Reportable Macrocytosis Not Reportable Spherocytes Not Reportable Pappenheimer Bodies Not Reportable Sickle Cells Not Reportable Target Cells Not Reportable Tear Drop Cells Not Reportable Ovalocytes 1+ Helmet Cells Not Reportable [place]-Nebo Bodies Not Reportable Sanders Rings Not Reportable Juliet Cells Not Reportable Bite Cells Not Reportable Crenated Cell Not Reportable Elliptocytes Not Reportable Acanthocytes (Spur) Not Reportable Rouleaux Not Reportable Hemoglobin C Crystals Not Reportable Schistocytes Not Reportable Malaria parasites Not Reportable Enrrique Bodies Not Reportable Hem Pathologist Commnt No Creatinine 4.7 H Estimated GFR 11 BUN/Creatinine Ratio 4 POC Glucose 84 ALT < 5 L
--- NOTE | 2021-03-06 10:03 | Progress Note ---
Assessment and Plan Impression: * End stage renal disease * Dyspnea secondary to pulmonary edema * Abdominal ascites * CAD s/p PCI in 2017 * Anemia secondary to ESRD * Secondary hyperparathyroidism * Medical noncompliance Plan: * Hemodialysis TTS * UF as tolerated * Epogen TIW prn * Renal/HD diet Subjective Date of service: 03/06/21 Interval history: Patient reports abdominal discomfort following paracentesis. Denies SOB. Objective - Vital Signs Vital signs: Vital Signs - 12hr 03/05/21 03/05/21 03/06/21 22:43 22:47 06:15 Temperature 97.2 F L Pulse Rate 84 84 75 Respiratory 18 Rate Blood Pressure 142/64 142/64 Blood Pressure 108/64 [Right] O2 Sat by Pulse 96 Oximetry - General Appearance General appearance: well-developed, well-nourished EENT: ATNC Respiratory: Present: Decreased Breath Sounds Cardiology: regular, S1S2 Integumentary: no rash, warm and dry Neurologic: no focal deficit Psychiatric: cooperative - Lab 03/07/21 06:41 03/05/21 08:20 Most recent lab results Calcium 8.5 mg/dL (8.4-10.2) 03/05/21 08:20 Magnesium 1.90 mg/dL (1.7-2.3) 03/04/21 09:14 Medications & Allergies - Medications Allergies/Adverse Reactions: Allergies No Known Allergies Allergy (Verified 03/04/21 07:25) Home Medications: Home Medications Medication Instructions Recorded Confirmed Last Taken Type Fluticasone [Flonase] 1 spray NS QDAY PRN 12/01/19 03/06/21 03/04/21 History Gabapentin [Neurontin] 800 mg PO TID #90 tab 02/02/20 03/06/21 03/04/21 Rx Mirtazapine [Remeron 15mg TAB] 15 mg PO QHS #30 tab 02/02/20 03/06/21 03/04/21 Rx Acetaminophen [Acetaminophen TAB] 650 mg PO Q4H PRN tablet 04/21/20 03/06/21 03/04/21 Rx Aspirin EC [Halfprin EC] 81 mg PO QDAY #30 tablet 04/21/20 03/06/21 03/04/21 Rx AtorvaSTATin [Lipitor] 40 mg PO QHS #30 tablet 04/21/20 03/06/21 03/04/21 Rx Calcium Acetate [Phoslo] 2,001 mg PO TIDWM #30 capsule 04/21/20 03/06/21 03/04/21 Rx Clopidogrel [Plavix] 75 mg PO QDAY #30 tab 04/21/20 03/06/21 03/04/21 Rx Epoetin Hiro 20,000 Unit [Procrit] 20,000 unit IV GREY vial 04/21/20 03/06/21 03/04/21 Rx Loperamide [Imodium] 2 mg PO Q4HR PRN #24 capsule 04/21/20 03/06/21 03/04/21 Rx Losartan [Cozaar] 50 mg PO QDAY #30 tablet 04/21/20 03/06/21 03/04/21 Rx Metoprolol [Lopressor TAB] 12.5 mg PO BID #60 tablet 04/21/20 03/06/21 03/04/21 Rx Torsemide [Demadex] 20 mg PO QDAY tablet 04/21/20 03/06/21 03/04/21 Rx calcitrioL [Rocaltrol] 1 mcg PO QDAY #30 cap 04/21/20 03/06/21 03/04/21 Rx hydrALAZINE [Apresoline TAB] 50 mg PO BID #120 tablet 04/21/20 03/06/21 03/04/21 Rx levETIRAcetam [Keppra TAB] 500 mg PO BID #60 tablet 04/21/20 03/06/21 03/04/21 Rx Albuterol Sulfate [Proair 90 mcg IH Q6HR PRN 05/17/20 03/06/21 03/04/21 History Digihaler] Azithromycin [Zithromax Z-TIMOTHY] 250 mg PO DAILY #6 tab 05/18/20 03/06/21 03/04/21 Rx Ondansetron [Zofran ODT TAB] 8 mg PO Q8HR PRN #10 05/18/20 03/06/21 03/04/21 Rx Calcium Carbonate [Tums 500MG CHEW] 750 mg PO QDAY 03/01/21 03/06/21 03/04/21 History Active Medications: Generic Name Dose Route Start Last Admin Trade Name Freq PRN Reason Stop Dose Admin Acetaminophen 650 mg 03/04/21 11:04 Acetaminophen 325 Mg Tab PO Q4H PRN Pain MILD(1-3)/Fever >100.5/MCDANIEL Albuterol 2.5 mg 03/04/21 11:28 Albuterol 2.5 Mg/3 Ml Nebu IH Q4H PRN Shortness Of Breath Aspirin 81 mg 03/04/21 12:00 03/06/21 09:32 Aspirin Ec 81 Mg Tab PO 81 mg QDAY LENCHO Administration Atorvastatin Calcium 40 mg 03/04/21 22:00 03/05/21 22:42 Atorvastatin 40 Mg Tab PO 40 mg QHS LENCHO Administration Calcitriol 1 mcg 03/04/21 12:00 03/06/21 09:32 Calcitriol 0.5 Mcg Cap PO 1 mcg QDAY LENCHO Administration Calcium Acetate 2,001 mg 03/04/21 12:00 03/06/21 08:00 Calcium Acetate 667 Mg Cap PO 2,001 mg TIDWM LENCHO Administration Fluticasone Propionate 50 mcg 03/04/21 11:01 Fluticasone Propionate Nasal [place] 16 Gm NS QDAY PRN Nasal Congestion Gabapentin 800 mg 03/04/21 14:00 03/06/21 08:00 Gabapentin 400 Mg Cap PO 800 mg TID LENCHO Administration Hydralazine HCl 50 mg 03/04/21 12:00 03/06/21 09:32 Hydralazine 25 Mg Tab PO 50 mg BID LENCHO Administration Sodium Chloride 100 mls @ 999 mls/hr 03/04/21 15:02 Nacl 0.9% IV GREY PRN Hypotension Levetiracetam 500 mg 03/04/21 12:00 03/06/21 09:31 Levetiracetam 500 Mg Tab PO 500 mg BID LENCHO Administration Loperamide HCl 2 mg 03/04/21 11:01 03/05/21 00:46 Loperamide 2 Mg Cap PO 2 mg Q4H PRN Administration Diarrhea Losartan Potassium 50 mg 03/04/21 12:00 03/06/21 09:32 Losartan 50 Mg Tab PO 50 mg QDAY LENCHO Administration Metoclopramide HCl 10 mg 03/04/21 10:56 Metoclopramide 10 Mg/2 Ml Inj IV Q6H PRN Nausea And Vomiting Metoprolol Tartrate 12.5 mg 03/04/21 12:00 03/06/21 09:33 Metoprolol Tartrate 25 Mg Tab PO 12.5 mg BID LENCHO Administration Mirtazapine 15 mg 03/04/21 22:00 03/05/21 22:42 Mirtazapine 15 Mg Tab PO 15 mg QHS LENCHO Administration Ondansetron HCl 4 mg 03/04/21 11:11 Ondansetron 4 Mg/2 Ml Inj IV Q4H PRN Nausea And Vomiting Oxycodone/Acetaminophen 1 tab 03/04/21 11:04 03/06/21 06:04 Oxycodone /Acetaminophen 5-325mg Tab PO 1 tab Q6H PRN Administration Pain, Moderate (4-6) Sodium Chloride 10 ml 03/04/21 22:00 03/06/21 09:34 Sodium Chloride 0.9% 10 Ml Flush Syringe IV 10 ml BID LENCHO Administration Sodium Chloride 10 ml 03/04/21 10:56 Sodium Chloride 0.9% 10 Ml Flush Syringe IV PRN PRN LINE FLUSH Torsemide 20 mg 03/04/21 12:00 03/06/21 09:32 Torsemide 10 Mg Tab PO 20 mg QDAY LENCHO Administration
[2021-03-06 10:55] LABS: Eosinophils # (Auto) 0.1 K/mm3 (0.0-0.4); Eosinophils % (Auto) 3.6 % (0.0-4.3); Monocytes # (Auto) 0.2 K/mm3 (0.0-0.8); Monocytes % (Auto) 8.8 % (0.0-7.3)
[2021-03-06 11:11] LABS: Basophils % (Auto) 0.6 % (0.0-1.8); Hematocrit 27.8 % (30.3-42.9); Hemoglobin 8.2 gm/dl (10.1-14.3); Lymphocytes # (Auto) 0.5 K/mm3 (1.2-5.4); Lymphocytes % (Auto) 16.8 % (13.4-35.0); Mean Corpuscular HGB Conc 29 % (30-34); Mean Corpuscular Volume 94 fl (79-97); Platelet Count 54 K/mm3 (140-440); Red Blood Count 2.95 M/mm3 (3.65-5.03)
--- NOTE | 2021-03-06 12:22 | Progress Note ---
Assessment and Plan Assessment and plan: Patient is a 61-year-old -[place] female with known history of end-stage renal disease on hemodialysis on Tuesdays, and Saturdays, CHF, hypertension, diabetes mellitus, seizure disorder, CVA, COPD on chronic home oxygen presents to the emergency room today with complaint of shortness of breath, abdominal distention and low blood counts. Patient was not in the hospital and left AGAINST MEDICAL ADVICE even following diagnosis of right knee fracture did appear to be acute worsening shortness of breath. Considering improvement in respiratory status after dialysis she signed out against AMA she tells me that he was requesting that to go take care of her grandchild. She had a time is also pending paracentesis when she left AGAINST MEDICAL ADVICE She returns today with worsening ascites and fluid overload symptomatic requesting further evaluation and admission. Work-up in the emergency room today reveals hemoglobin level of 7.8 and Potassium level was low at 3.3. During this admission she required a unit of packed red blood cell. He denies any nausea vomiting diarrhea she denies any chest pain at this time. She does use home oxygen. 03/05: Continue supportive care, anticipate further paracentesis in AM. Hematology consult due to noted Pancytopenia. 03/06: Hardwood Floor Layer input noted. Okay to continue with paracentesis. Awaiting diagnostic radiologist for paracentesis. Following paracentesis and evaluation by orthopedic surgeon patient can be discharged. PT OT consulted awaiting. Continue hemodialysis and electrolytes management per technical assistance consultant. (1) End stage renal disease on dialysis Current Visit: Yes Status: Chronic Plan to address problem: Patient on dialysis on Saturday, and Saturday. Awaits nephrology evaluation and recommendations. (2) Anemia in chronic kidney disease Current Visit: Yes Status: Chronic Qualifiers: Plan to address problem: We will monitor CBC. Patient will be transfused packed red blood cells if needed. (3) Ascites Current Visit: No Status: Chronic Plan to address problem: Patient to be scheduled for paracentesis. Due to being the weekend the ED doctor has graciously agreed to perform thoracentesis at bedside patient may still need further study done by diagnostic radiology. (4) Hypokalemia Current Visit: Yes Status: Acute Plan to address problem: Potassium repleted. We will monitor chemistry. (5) right knee pain with acute displaced fracture Will obtain orthopedic consult (6) chronic thrombocytopenia (7) diabetes mellitus (8) prior history of stroke (9) DVT prophylaxis Current Visit: No Status: Acute Plan to address problem: Patient placed on sequential compression device due to chronic thrombocytopenia will avoid heparin-like products. We will also hold Plavix.. (7) Full code status Current Visit: No Status: Acute Plan to address problem: Patient is a full code. Discussed extensively about noncompliance patient verbalized understanding will be more compliant History Interval history: Patient seen and examined no acute distress continues with leg pain. A bit confused she thought she had paracentesis yesterday which she did not. Hospitalist Physical - Physical exam Narrative exam: VITAL SIGNS: Reviewed. GENERAL: The patient appears normally developed, cachectic. vital signs as documented. HEAD: No signs of head trauma. EYES: Pupils are equal. Extraocular motions intact. EARS: Hearing grossly intact. MOUTH: Oropharynx is normal. NECK: No adenopathy, no JVD. CHEST: Chest with diminished breath sounds bilaterally. No wheezes, rales, or rhonchi. CARDIAC: Regular rate and rhythm. S1 and S2, without murmurs, gallops, or rubs. VASCULAR: No Edema. Peripheral pulses normal and equal in all extremities. ABDOMEN: Soft, protuberant with fluid shift although improved, non tender. No rebound or guarding, and no masses palpated. Bowel Sounds normal. MUSCULOSKELETAL: Tender in the right knee to touch. Good range of motion of all major joints. Extremities without clubbing, cyanosis or edema. NEUROLOGIC EXAM: Alert and oriented x 3 No focal sensory or strength deficits. Speech normal. Follows commands. PSYCHIATRIC: Mood normal. SKIN: detail exam as documented in skin assessment - Constitutional Vitals: Temp Pulse Resp BP Pulse Ox 97.2 F L 75 18 108/64 96 03/06/21 06:15 03/06/21 06:15 03/06/21 06:15 03/06/21 06:15 03/06/21 06:15 Results - Labs CBC & Chem 7: 03/06/21 10:22 03/05/21 08:20 Labs: Laboratory Last Values WBC 2.8 K/mm3 (4.5-11.0) L 03/06/21 10:22 RBC 2.95 M/mm3 (3.65-5.03) L 03/06/21 10:22 Hgb 8.2 gm/dl (10.1-14.3) L 03/06/21 10:22 Hct 27.8 % (30.3-42.9) L 03/06/21 10:22 MCV 94 fl (79-97) 03/06/21 10:22 MCH 28 pg (28-32) 03/06/21 10:22 MCHC 29 % (30-34) L 03/06/21 10:22 RDW 20.0 % (13.2-15.2) H 03/06/21 10:22 Plt Count 54 K/mm3 (140-440) L 03/06/21 10:22 Lymph % (Auto) 16.8 % (13.4-35.0) 03/06/21 10:22 [place] % (Auto) 8.8 % (0.0-7.3) H 03/06/21 10:22 Eos % (Auto) 3.6 % (0.0-4.3) 03/06/21 10:22 Baso % (Auto) 0.6 % (0.0-1.8) 03/06/21 10:22 Lymph # (Auto) 0.5 K/mm3 (1.2-5.4) L 03/06/21 10:22 [place] # (Auto) 0.2 K/mm3 (0.0-0.8) 03/06/21 10:22 Eos # (Auto) 0.1 K/mm3 (0.0-0.4) 03/06/21 10:22 Baso # (Auto) 0.0 K/mm3 (0.0-0.1) 03/06/21 10:22 Add Manual Diff Complete 03/05/21 08:20 Total Counted 100 03/05/21 08:20 Seg Neutrophils % 70.2 % (40.0-70.0) H 03/06/21 10:22 Seg Neuts % (Manual) 70.0 % (40.0-70.0) 03/05/21 08:20 Lymphocytes % (Manual) 26.0 % (13.4-35.0) 03/05/21 08:20 Monocytes % (Manual) 2.0 % (0.0-7.3) 03/05/21 08:20 Eosinophils % (Manual) 2.0 % (0.0-4.3) 03/05/21 08:20 Nucleated RBC % Not Reportable 03/05/21 08:20 Seg Neutrophils # 2.0 K/mm3 (1.8-7.7) 03/06/21 10:22 Seg Neutrophils # Man 1.4 K/mm3 (1.8-7.7) L 03/05/21 08:20 Band Neutrophils # 0.0 K/mm3 03/05/21 08:20 Lymphocytes # (Manual) 0.5 K/mm3 (1.2-5.4) L 03/05/21 08:20 Abs React Lymphs (Man) 0.0 K/mm3 03/05/21 08:20 Monocytes # (Manual) 0.0 K/mm3 (0.0-0.8) 03/05/21 08:20 Eosinophils # (Manual) 0.0 K/mm3 (0.0-0.4) 03/05/21 08:20 Basophils # (Manual) 0.0 K/mm3 (0.0-0.1) 03/05/21 08:20 Metamyelocytes # 0.0 K/mm3 03/05/21 08:20 Myelocytes # 0.0 K/mm3 03/05/21 08:20 Promyelocytes # 0.0 K/mm3 03/05/21 08:20 Blast Cells # 0.0 K/mm3 03/05/21 08:20 WBC Morphology Not Reportable 03/05/21 08:20 Hypersegmented Neuts Not Reportable 03/05/21 08:20 Hyposegmented Neuts Not Reportable 03/05/21 08:20 Hypogranular Neuts Not Reportable 03/05/21 08:20 Smudge Cells Not Reportable 03/05/21 08:20 Toxic Granulation Not Reportable 03/05/21 08:20 Toxic Vacuolation Not Reportable 03/05/21 08:20 Dohle Bodies Not Reportable 03/05/21 08:20 Pelger-Huet Anomaly Not Reportable 03/05/21 08:20 Graciela Rods Not Reportable 03/05/21 08:20 Platelet Estimate Consistent w auto 03/05/21 08:20 Clumped Platelets Not Reportable 03/05/21 08:20 Plt Clumps, EDTA Not Reportable 03/05/21 08:20 Large Platelets Not Reportable 03/05/21 08:20 Giant Platelets Not Reportable 03/05/21 08:20 Platelet Satelliting Not Reportable 03/05/21 08:20 Plt Morphology Comment Not Reportable 03/05/21 08:20 RBC Morphology Not Reportable 03/05/21 08:20 Dimorphic RBCs Not Reportable 03/05/21 08:20 Polychromasia Not Reportable 03/05/21 08:20 Hypochromasia Few 03/05/21 08:20 Poikilocytosis Not Reportable 03/05/21 08:20 Anisocytosis 1+ 03/05/21 08:20 Microcytosis Not Reportable 03/05/21 08:20 Macrocytosis Not Reportable 03/05/21 08:20 Spherocytes Not Reportable 03/05/21 08:20 Pappenheimer Bodies Not Reportable 03/05/21 08:20 Sickle Cells Not Reportable 03/05/21 08:20 Target Cells Not Reportable 03/05/21 08:20 Tear Drop Cells Not Reportable 03/05/21 08:20 Ovalocytes 1+ 03/05/21 08:20 Helmet Cells Not Reportable 03/05/21 08:20 [place]-Charco Bodies Not Reportable 03/05/21 08:20 [place] Rings Not Reportable 03/05/21 08:20 [place] Cells Not Reportable 03/05/21 08:20 Bite Cells Not Reportable 03/05/21 08:20 Crenated Cell Not Reportable 03/05/21 08:20 Elliptocytes Not Reportable 03/05/21 08:20 Acanthocytes (Spur) Not Reportable 03/05/21 08:20 Rouleaux Not Reportable 03/05/21 08:20 Hemoglobin C Crystals Not Reportable 03/05/21 08:20 Schistocytes Not Reportable 03/05/21 08:20 Malaria parasites Not Reportable 03/05/21 08:20 Enrrique Bodies Not Reportable 03/05/21 08:20 Hem Pathologist Commnt No 03/05/21 08:20 PT 16.5 Sec. (12.2-14.9) H 03/04/21 09:14 INR 1.27 (0.87-1.13) H 03/04/21 09:14 Fibrinogen 328 mg/dl (211-480) 03/06/21 10:22 Sodium 141 mmol/L (137-145) 03/05/21 08:20 Potassium 3.9 mmol/L (3.6-5.0) 03/05/21 08:20 Chloride 99.5 mmol/L (98-107) 03/05/21 08:20 Carbon Dioxide 34 mmol/L (22-30) H 03/05/21 08:20 Anion Gap 11 mmol/L 03/05/21 08:20 BUN 17 mg/dL (7-17) 03/05/21 08:20 Creatinine 4.7 mg/dL (0.6-1.2) H 03/05/21 08:20 Estimated GFR 11 ml/min 03/05/21 08:20 BUN/Creatinine Ratio 4 % 03/05/21 08:20 Glucose 73 mg/dL (65-100) 03/05/21 08:20 POC Glucose 92 mg/dL (70-105) 03/06/21 11:25 Calcium 8.5 mg/dL (8.4-10.2) 03/05/21 08:20 Magnesium 1.90 mg/dL (1.7-2.3) 03/04/21 09:14 Total Bilirubin 0.80 mg/dL (0.1-1.2) 03/05/21 08:20 AST 11 units/L (5-40) 03/05/21 08:20 ALT < 5 units/L (7-56) L 03/05/21 08:20 Alkaline Phosphatase 77 units/L (35-129) 03/05/21 08:20 Total Creatine Kinase 36 units/L (30-135) 03/04/21 09:14 NT-Pro-B Natriuret Pep > 47449 pg/mL (0-900) H 03/04/21 09:14 Total Protein 6.6 g/dL (6.3-8.2) 03/05/21 08:20 Albumin 3.3 g/dL (3.9-5) L 03/05/21 08:20 Albumin/Globulin Ratio 1.0 % 03/05/21 08:20 Fluid Type Peritoneal 03/04/21 Unknown Fluid Color Yellow 03/04/21 Unknown Fluid Appearance Cloudy 03/04/21 Unknown Fluid WBC 50 /mm3 03/04/21 Unknown Fluid RBC 9625 /mm3 03/04/21 Unknown Fluid Seg Neutrophils 4.0 % 03/04/21 Unknown Fluid Lymphocytes 7.0 % 03/04/21 Unknown Fluid Monocytes 89.0 % 03/04/21 Unknown Microbiology: Microbiology 03/04/21 14:28 Peritioneal Dialysate Peritoneal Dialysate Culture - Preliminary Active Medications - Current Medications Current Medications: Generic Name Dose Route Start Last Admin Trade Name Freq PRN Reason Stop Dose Admin Acetaminophen 650 mg 03/04/21 11:04 Acetaminophen 325 Mg Tab PO Q4H PRN Pain MILD(1-3)/Fever >100.5/MCDANIEL Albuterol 2.5 mg 03/04/21 11:28 Albuterol 2.5 Mg/3 Ml Nebu IH Q4H PRN Shortness Of Breath Aspirin 81 mg 03/04/21 12:00 03/06/21 09:32 Aspirin Ec 81 Mg Tab PO 81 mg QDAY LENCHO Administration Atorvastatin Calcium 40 mg 03/04/21 22:00 03/05/21 22:42 Atorvastatin 40 Mg Tab PO 40 mg QHS LENCHO Administration Calcitriol 1 mcg 03/04/21 12:00 03/06/21 09:32 Calcitriol 0.5 Mcg Cap PO 1 mcg QDAY LENCHO Administration Calcium Acetate 2,001 mg 03/04/21 12:00 03/06/21 08:00 Calcium Acetate 667 Mg Cap PO 2,001 mg TIDWM LENCHO Administration Fluticasone Propionate 50 mcg 03/04/21 11:01 Fluticasone Propionate Nasal [place] 16 Gm NS QDAY PRN Nasal Congestion Gabapentin 800 mg 03/04/21 14:00 03/06/21 08:00 Gabapentin 400 Mg Cap PO 800 mg TID LENCHO Administration Hydralazine HCl 50 mg 03/04/21 12:00 03/06/21 09:32 Hydralazine 25 Mg Tab PO 50 mg BID LENCHO Administration Sodium Chloride 100 mls @ 999 mls/hr 03/04/21 15:02 Nacl 0.9% IV GREY PRN Hypotension Levetiracetam 500 mg 03/04/21 12:00 03/06/21 09:31 Levetiracetam 500 Mg Tab PO 500 mg BID LENCHO Administration Loperamide HCl 2 mg 03/04/21 11:01 03/05/21 00:46 Loperamide 2 Mg Cap PO 2 mg Q4H PRN Administration Diarrhea Losartan Potassium 50 mg 03/04/21 12:00 03/06/21 09:32 Losartan 50 Mg Tab PO 50 mg QDAY LENCHO Administration Metoclopramide HCl 10 mg 03/04/21 10:56 Metoclopramide 10 Mg/2 Ml Inj IV Q6H PRN Nausea And Vomiting Metoprolol Tartrate 12.5 mg 03/04/21 12:00 03/06/21 09:33 Metoprolol Tartrate 25 Mg Tab PO 12.5 mg BID LENCHO Administration Mirtazapine 15 mg 03/04/21 22:00 03/05/21 22:42 Mirtazapine 15 Mg Tab PO 15 mg QHS LENCHO Administration Ondansetron HCl 4 mg 03/04/21 11:11 Ondansetron 4 Mg/2 Ml Inj IV Q4H PRN Nausea And Vomiting Oxycodone/Acetaminophen 1 tab 03/04/21 11:04 03/06/21 06:04 Oxycodone /Acetaminophen 5-325mg Tab PO 1 tab Q6H PRN Administration Pain, Moderate (4-6) Sodium Chloride 10 ml 03/04/21 22:00 03/06/21 09:34 Sodium Chloride 0.9% 10 Ml Flush Syringe IV 10 ml BID LENCHO Administration Sodium Chloride 10 ml 03/04/21 10:56 Sodium Chloride 0.9% 10 Ml Flush Syringe IV PRN PRN LINE FLUSH Torsemide 20 mg 03/04/21 12:00 03/06/21 09:32 Torsemide 10 Mg Tab PO 20 mg QDAY LENCHO Administration
--- NOTE | 2021-03-06 13:43 | Ultrasound Report ---
ULTRASOUND-GUIDED PARACENTESIS HISTORY: ascities. PROCEDURE: The risks (including but not limited to bleeding, infection, and bowel injury) and benefi ts were explained to the patient and informed consent was obtained. A time out procedure was perform ed. Ultrasound was used to evaluate the abdomen and locate the largest ascites fluid pocket. Once the sk in was marked, the procedure site was prepped and draped in the usual sterile fashion and lidocaine w as used for local anesthesia. A 5 Romansh centesis catheter was placed. The patient was monitored cl osely throughout the procedure, and a total of 900 cc mL of blood-tinged fluid was aspirated. No lab s were ordered. The patient tolerated the procedure well with no complications. IMPRESSION: Successful ultrasound-guided paracentesis as described. Signer Name: Torey Pierson Jr, MD Signed: 03/06/2021 1:39 PM Workstation Name: [id number]
[2021-03-06] MEDS: MIRTAZAPINE 15 MG TAB PO SCH (21:22)
[2021-03-07 07:48] LABS: Hematocrit 25.4 % (30.3-42.9); Hemoglobin 8.1 gm/dl (10.1-14.3); Mean Corpuscular HGB Conc 32 % (30-34); Mean Corpuscular Volume 90 fl (79-97); Red Blood Count 2.83 M/mm3 (3.65-5.03); Red Cell Distribution Width 19.6 % (13.2-15.2)
[2021-03-07 08:06] LABS: Platelet Count 67 K/mm3 (140-440)
--- NOTE | 2021-03-07 08:45 | Progress Note ---
Assessment and Plan Assessment and plan: Patient is a 61-year-old -[place] female with known history of end-stage renal disease on hemodialysis on Tuesdays, and Saturdays, CHF, hypertension, diabetes mellitus, seizure disorder, CVA, COPD on chronic home oxygen presents to the emergency room today with complaint of shortness of breath, abdominal distention and low blood counts. Patient was not in the hospital and left AGAINST MEDICAL ADVICE even following diagnosis of right knee fracture did appear to be acute worsening shortness of breath. Considering improvement in respiratory status after dialysis she signed out against AMA she tells me that he was requesting that to go take care of her grandchild. She had a time is also pending paracentesis when she left AGAINST MEDICAL ADVICE She returns today with worsening ascites and fluid overload symptomatic requesting further evaluation and admission. Work-up in the emergency room today reveals hemoglobin level of 7.8 and Potassium level was low at 3.3. During this admission she required a unit of packed red blood cell. He denies any nausea vomiting diarrhea she denies any chest pain at this time. She does use home oxygen. 03/05: Continue supportive care, anticipate further paracentesis in AM. Hematology consult due to noted Pancytopenia. 03/06: [employer] Spinner input noted. Okay to continue with paracentesis. Awaiting diagnostic radiologist for paracentesis. Following paracentesis and evaluation by orthopedic surgeon patient can be discharged. PT OT consulted awaiting. Continue hemodialysis and electrolytes management per onion tier. 03/07; Orthopedics evaluation is pending. Patient had paracentesis and drained about 900 mL of blood-tinged fluid, sent for labs, prelim result shows fluid is transudative. Nephrology is following for hemodialysis. PT OT evaluation still pending. Thrombocytopenia is chronic. (1) End stage renal disease on dialysis Current Visit: Yes Status: Chronic Plan to address problem: Patient on dialysis on Saturday, and Saturday. Awaits nephrology evaluation and recommendations. (2) Anemia in chronic kidney disease Current Visit: Yes Status: Chronic Qualifiers: Plan to address problem: We will monitor CBC. Patient will be transfused packed red blood cells if needed. (3) Ascites Current Visit: No Status: Chronic Plan to address problem: Patient to be scheduled for paracentesis. Due to being the weekend the ED doctor has graciously agreed to perform thoracentesis at bedside patient may still need further study done by diagnostic radiology. (4) Hypokalemia Current Visit: Yes Status: Acute Plan to address problem: Potassium repleted. We will monitor chemistry. (5) right knee pain with acute displaced fracture Will obtain orthopedic consult (6) chronic thrombocytopenia (7) diabetes mellitus (8) prior history of stroke (9) DVT prophylaxis Current Visit: No Status: Acute Plan to address problem: Patient placed on sequential compression device due to chronic thrombocytopenia will avoid heparin-like products. We will also hold Plavix.. (7) Full code status Current Visit: No Status: Acute Plan to address problem: Patient is a full code. Discussed extensively about noncompliance patient verbalized understanding will be more compliant History Interval history: Patient was seen and evaluated this morning Patient stated no abdominal pain and her abdomen is flat after paracentesis Her right knee is bothering her Hospitalist Physical - Physical exam Narrative exam: Not in cardiopulmonary distress. The patient appeared well nourished and normally developed. Vital signs as documented. Head exam is unremarkable. No scleral icterus . Neck is without jugular venous distension, thyromegaly, or carotid bruits. Lungs are clear to auscultation. Cardiac exam reveals regular rate and Rhythm. Abdominal exam reveals normal bowel sounds, nontender, no organomegaly. Extremities are nonedematous and both femoral and pedal pulses are normal. SHACKLER: Alert and oriented 3. No focal weakness. - Constitutional Vitals: Temp Pulse Resp BP Pulse Ox 98.0 F 80 18 109/58 90 03/07/21 04:45 03/07/21 04:45 03/07/21 04:45 03/07/21 04:45 03/07/21 04:45 Results - Labs CBC & Chem 7: 03/07/21 06:41 03/05/21 08:20 Labs: Laboratory Last Values WBC 3.1 K/mm3 (4.5-11.0) L 03/07/21 06:41 RBC 2.83 M/mm3 (3.65-5.03) L 03/07/21 06:41 Hgb 8.1 gm/dl (10.1-14.3) L 03/07/21 06:41 Hct 25.4 % (30.3-42.9) L 03/07/21 06:41 MCV 90 fl (79-97) 03/07/21 06:41 MCH 29 pg (28-32) 03/07/21 06:41 MCHC 32 % (30-34) 03/07/21 06:41 RDW 19.6 % (13.2-15.2) H 03/07/21 06:41 Plt Count 67 K/mm3 (140-440) L 03/07/21 06:41 Lymph % (Auto) 16.8 % (13.4-35.0) 03/06/21 10:22 [place] % (Auto) 8.8 % (0.0-7.3) H 03/06/21 10:22 Eos % (Auto) 3.6 % (0.0-4.3) 03/06/21 10:22 Baso % (Auto) 0.6 % (0.0-1.8) 03/06/21 10:22 Lymph # (Auto) 0.5 K/mm3 (1.2-5.4) L 03/06/21 10:22 [place] # (Auto) 0.2 K/mm3 (0.0-0.8) 03/06/21 10:22 Eos # (Auto) 0.1 K/mm3 (0.0-0.4) 03/06/21 10:22 Baso # (Auto) 0.0 K/mm3 (0.0-0.1) 03/06/21 10:22 Add Manual Diff Complete 03/05/21 08:20 Total Counted 100 03/05/21 08:20 Seg Neutrophils % 70.2 % (40.0-70.0) H 03/06/21 10:22 Seg Neuts % (Manual) 70.0 % (40.0-70.0) 03/05/21 08:20 Lymphocytes % (Manual) 26.0 % (13.4-35.0) 03/05/21 08:20 Monocytes % (Manual) 2.0 % (0.0-7.3) 03/05/21 08:20 Eosinophils % (Manual) 2.0 % (0.0-4.3) 03/05/21 08:20 Nucleated RBC % Not Reportable 03/05/21 08:20 Seg Neutrophils # 2.0 K/mm3 (1.8-7.7) 03/06/21 10:22 Seg Neutrophils # Man 1.4 K/mm3 (1.8-7.7) L 03/05/21 08:20 Band Neutrophils # 0.0 K/mm3 03/05/21 08:20 Lymphocytes # (Manual) 0.5 K/mm3 (1.2-5.4) L 03/05/21 08:20 Abs React Lymphs (Man) 0.0 K/mm3 03/05/21 08:20 Monocytes # (Manual) 0.0 K/mm3 (0.0-0.8) 03/05/21 08:20 Eosinophils # (Manual) 0.0 K/mm3 (0.0-0.4) 03/05/21 08:20 Basophils # (Manual) 0.0 K/mm3 (0.0-0.1) 03/05/21 08:20 Metamyelocytes # 0.0 K/mm3 03/05/21 08:20 Myelocytes # 0.0 K/mm3 03/05/21 08:20 Promyelocytes # 0.0 K/mm3 03/05/21 08:20 Blast Cells # 0.0 K/mm3 03/05/21 08:20 WBC Morphology Not Reportable 03/05/21 08:20 Hypersegmented Neuts Not Reportable 03/05/21 08:20 Hyposegmented Neuts Not Reportable 03/05/21 08:20 Hypogranular Neuts Not Reportable 03/05/21 08:20 Smudge Cells Not Reportable 03/05/21 08:20 Toxic Granulation Not Reportable 03/05/21 08:20 Toxic Vacuolation Not Reportable 03/05/21 08:20 Dohle Bodies Not Reportable 03/05/21 08:20 Pelger-Huet Anomaly Not Reportable 03/05/21 08:20 Graciela Rods Not Reportable 03/05/21 08:20 Platelet Estimate Consistent w auto 03/05/21 08:20 Clumped Platelets Not Reportable 03/05/21 08:20 Plt Clumps, EDTA Not Reportable 03/05/21 08:20 Large Platelets Not Reportable 03/05/21 08:20 Giant Platelets Not Reportable 03/05/21 08:20 Platelet Satelliting Not Reportable 03/05/21 08:20 Plt Morphology Comment Not Reportable 03/05/21 08:20 RBC Morphology Not Reportable 03/05/21 08:20 Dimorphic RBCs Not Reportable 03/05/21 08:20 Polychromasia Not Reportable 03/05/21 08:20 Hypochromasia Few 03/05/21 08:20 Poikilocytosis Not Reportable 03/05/21 08:20 Anisocytosis 1+ 03/05/21 08:20 Microcytosis Not Reportable 03/05/21 08:20 Macrocytosis Not Reportable 03/05/21 08:20 Spherocytes Not Reportable 03/05/21 08:20 Pappenheimer Bodies Not Reportable 03/05/21 08:20 Sickle Cells Not Reportable 03/05/21 08:20 Target Cells Not Reportable 03/05/21 08:20 Tear Drop Cells Not Reportable 03/05/21 08:20 Ovalocytes 1+ 03/05/21 08:20 Helmet Cells Not Reportable 03/05/21 08:20 [place]-Amo Bodies Not Reportable 03/05/21 08:20 [place] Rings Not Reportable 03/05/21 08:20 [place] Cells Not Reportable 03/05/21 08:20 Bite Cells Not Reportable 03/05/21 08:20 Crenated Cell Not Reportable 03/05/21 08:20 Elliptocytes Not Reportable 03/05/21 08:20 Acanthocytes (Spur) Not Reportable 03/05/21 08:20 Rouleaux Not Reportable 03/05/21 08:20 Hemoglobin C Crystals Not Reportable 03/05/21 08:20 Schistocytes Not Reportable 03/05/21 08:20 Malaria parasites Not Reportable 03/05/21 08:20 Enrrique Bodies Not Reportable 03/05/21 08:20 Hem Pathologist Commnt No 03/05/21 08:20 PT 16.5 Sec. (12.2-14.9) H 03/04/21 09:14 INR 1.27 (0.87-1.13) H 03/04/21 09:14 Fibrinogen 328 mg/dl (211-480) 03/06/21 10:22 Sodium 141 mmol/L (137-145) 03/05/21 08:20 Potassium 3.9 mmol/L (3.6-5.0) 03/05/21 08:20 Chloride 99.5 mmol/L (98-107) 03/05/21 08:20 Carbon Dioxide 34 mmol/L (22-30) H 03/05/21 08:20 Anion Gap 11 mmol/L 03/05/21 08:20 BUN 17 mg/dL (7-17) 03/05/21 08:20 Creatinine 4.7 mg/dL (0.6-1.2) H 03/05/21 08:20 Estimated GFR 11 ml/min 03/05/21 08:20 BUN/Creatinine Ratio 4 % 03/05/21 08:20 Glucose 73 mg/dL (65-100) 03/05/21 08:20 POC Glucose 90 mg/dL (70-105) 03/07/21 07:40 Calcium 8.5 mg/dL (8.4-10.2) 03/05/21 08:20 Magnesium 1.90 mg/dL (1.7-2.3) 03/04/21 09:14 Total Bilirubin 0.80 mg/dL (0.1-1.2) 03/05/21 08:20 AST 11 units/L (5-40) 03/05/21 08:20 ALT < 5 units/L (7-56) L 03/05/21 08:20 Alkaline Phosphatase 77 units/L (35-129) 03/05/21 08:20 Total Creatine Kinase 36 units/L (30-135) 03/04/21 09:14 NT-Pro-B Natriuret Pep > 68224 pg/mL (0-900) H 03/04/21 09:14 Total Protein 6.6 g/dL (6.3-8.2) 03/05/21 08:20 Albumin 3.3 g/dL (3.9-5) L 03/05/21 08:20 Albumin/Globulin Ratio 1.0 % 03/05/21 08:20 Fluid Type Peritoneal 03/04/21 Unknown Fluid Color Yellow 03/04/21 Unknown Fluid Appearance Cloudy 03/04/21 Unknown Fluid WBC 50 /mm3 03/04/21 Unknown Fluid RBC 9625 /mm3 03/04/21 Unknown Fluid Seg Neutrophils 4.0 % 03/04/21 Unknown Fluid Lymphocytes 7.0 % 03/04/21 Unknown Fluid Monocytes 89.0 % 03/04/21 Unknown Nasal Screen MRSA (PCR) Negative (Negative) 03/05/21 01:30 [place]/IV: Voiding Method Incontinent Active Medications - Current Medications Current Medications: Generic Name Dose Route Start Last Admin Trade Name Freq PRN Reason Stop Dose Admin Acetaminophen 650 mg 03/04/21 11:04 Acetaminophen 325 Mg Tab PO Q4H PRN Pain MILD(1-3)/Fever >100.5/MCDANIEL Albuterol 2.5 mg 03/04/21 11:28 Albuterol 2.5 Mg/3 Ml Nebu IH Q4H PRN Shortness Of Breath Aspirin 81 mg 03/04/21 12:00 03/06/21 09:32 Aspirin Ec 81 Mg Tab PO 81 mg QDAY LENCHO Administration Atorvastatin Calcium 40 mg 03/04/21 22:00 03/06/21 21:24 Atorvastatin 40 Mg Tab PO 40 mg QHS LENCHO Administration Calcitriol 1 mcg 03/04/21 12:00 03/06/21 09:32 Calcitriol 0.5 Mcg Cap PO 1 mcg QDAY LENCHO Administration Calcium Acetate 2,001 mg 03/04/21 12:00 03/06/21 18:00 Calcium Acetate 667 Mg Cap PO 2,001 mg TIDWM LENCHO Administration Fluticasone Propionate 50 mcg 03/04/21 11:01 Fluticasone Propionate Nasal [place] 16 Gm NS QDAY PRN Nasal Congestion Gabapentin 800 mg 03/04/21 14:00 03/06/21 21:12 Gabapentin 400 Mg Cap PO 800 mg TID LENCHO Administration Hydralazine HCl 50 mg 03/04/21 12:00 03/06/21 21:22 Hydralazine 25 Mg Tab PO 50 mg BID LENCHO Administration Sodium Chloride 100 mls @ 999 mls/hr 03/04/21 15:02 Nacl 0.9% IV GREY PRN Hypotension Levetiracetam 500 mg 03/04/21 12:00 03/06/21 21:22 Levetiracetam 500 Mg Tab PO 500 mg BID LENCHO Administration Loperamide HCl 2 mg 03/04/21 11:01 03/05/21 00:46 Loperamide 2 Mg Cap PO 2 mg Q4H PRN Administration Diarrhea Losartan Potassium 50 mg 03/04/21 12:00 03/06/21 09:32 Losartan 50 Mg Tab PO 50 mg QDAY LENCHO Administration Metoclopramide HCl 10 mg 03/04/21 10:56 Metoclopramide 10 Mg/2 Ml Inj IV Q6H PRN Nausea And Vomiting Metoprolol Tartrate 12.5 mg 03/04/21 12:00 03/06/21 21:23 Metoprolol Tartrate 25 Mg Tab PO 12.5 mg BID LENCHO Administration Mirtazapine 15 mg 03/04/21 22:00 03/06/21 21:22 Mirtazapine 15 Mg Tab PO 15 mg QHS LENCHO Administration Ondansetron HCl 4 mg 03/04/21 11:11 Ondansetron 4 Mg/2 Ml Inj IV Q4H PRN Nausea And Vomiting Oxycodone/Acetaminophen 1 tab 03/04/21 11:04 03/06/21 06:04 Oxycodone /Acetaminophen 5-325mg Tab PO 1 tab Q6H PRN Administration Pain, Moderate (4-6) Sodium Chloride 10 ml 03/04/21 22:00 03/06/21 21:25 Sodium Chloride 0.9% 10 Ml Flush Syringe IV 10 ml BID LENCHO Administration Sodium Chloride 10 ml 03/04/21 10:56 Sodium Chloride 0.9% 10 Ml Flush Syringe IV PRN PRN LINE FLUSH Torsemide 20 mg 03/04/21 12:00 03/06/21 09:32 Torsemide 10 Mg Tab PO 20 mg QDAY LENCHO Administration
--- NOTE | 2021-03-07 09:16 | Progress Note ---
Assessment and Plan Impression: * End stage renal disease * Dyspnea secondary to pulmonary edema * Abdominal ascites * CAD s/p PCI in 2017 * Anemia secondary to ESRD * Secondary hyperparathyroidism * Medical noncompliance Plan: * Hemodialysis today. * Continue TTS schedule * UF as tolerated * Epogen TIW prn * Renal/HD diet Subjective Date of service: 03/07/21 Interval history: Patient has no complaints today. Per RN, patient has been spitting out medications. However, patient is tolerating po intake - ate 100% of breakfast. Objective - Vital Signs Vital signs: Vital Signs - 12hr 03/06/21 03/06/21 03/06/21 21:20 21:22 21:23 Temperature 97.5 F L Pulse Rate 81 81 81 Respiratory 17 Rate Respiratory Rate [Abdomen] Blood Pressure 149/68 149/68 149/68 O2 Sat by Pulse 95 Oximetry 03/06/21 03/06/21 03/06/21 22:00 22:10 23:39 Temperature 98.1 F Pulse Rate 78 Respiratory 18 Rate Respiratory 17 Rate [Abdomen] Blood Pressure 134/64 O2 Sat by Pulse 95 100 Oximetry 03/07/21 04:45 Temperature 98.0 F Pulse Rate 80 Respiratory 18 Rate Respiratory Rate [Abdomen] Blood Pressure 109/58 O2 Sat by Pulse 90 Oximetry - General Appearance General appearance: well-developed, well-nourished EENT: ATNC Respiratory: Present: Clear to Ascultation Cardiology: regular, S1S2 Gastrointestinal: normal, no distended Integumentary: no rash, warm and dry Psychiatric: cooperative - Lab 03/08/21 07:15 03/08/21 07:15 Most recent lab results Calcium 8.5 mg/dL (8.4-10.2) 03/05/21 08:20 Magnesium 1.90 mg/dL (1.7-2.3) 03/04/21 09:14 Medications & Allergies - Medications Allergies/Adverse Reactions: Allergies No Known Allergies Allergy (Verified 03/04/21 07:25) Home Medications: Home Medications Medication Instructions Recorded Confirmed Last Taken Type Fluticasone [Flonase] 1 spray NS QDAY PRN 12/01/19 03/06/21 03/04/21 History Gabapentin [Neurontin] 800 mg PO TID #90 tab 02/02/20 03/06/21 03/04/21 Rx Mirtazapine [Remeron 15mg TAB] 15 mg PO QHS #30 tab 02/02/20 03/06/21 03/04/21 Rx Acetaminophen [Acetaminophen TAB] 650 mg PO Q4H PRN tablet 04/21/20 03/06/21 03/04/21 Rx Aspirin EC [Halfprin EC] 81 mg PO QDAY #30 tablet 04/21/20 03/06/21 03/04/21 Rx AtorvaSTATin [Lipitor] 40 mg PO QHS #30 tablet 04/21/20 03/06/21 03/04/21 Rx Calcium Acetate [Phoslo] 2,001 mg PO TIDWM #30 capsule 04/21/20 03/06/21 03/04/21 Rx Clopidogrel [Plavix] 75 mg PO QDAY #30 tab 04/21/20 03/06/21 03/04/21 Rx Epoetin Hiro 20,000 Unit [Procrit] 20,000 unit IV GREY vial 04/21/20 03/06/21 03/04/21 Rx Loperamide [Imodium] 2 mg PO Q4HR PRN #24 capsule 04/21/20 03/06/21 03/04/21 Rx Losartan [Cozaar] 50 mg PO QDAY #30 tablet 04/21/20 03/06/21 03/04/21 Rx Metoprolol [Lopressor TAB] 12.5 mg PO BID #60 tablet 04/21/20 03/06/21 03/04/21 Rx Torsemide [Demadex] 20 mg PO QDAY tablet 04/21/20 03/06/21 03/04/21 Rx calcitrioL [Rocaltrol] 1 mcg PO QDAY #30 cap 04/21/20 03/06/21 03/04/21 Rx hydrALAZINE [Apresoline TAB] 50 mg PO BID #120 tablet 04/21/20 03/06/21 03/04/21 Rx levETIRAcetam [Keppra TAB] 500 mg PO BID #60 tablet 04/21/20 03/06/21 03/04/21 Rx Albuterol Sulfate [Proair 90 mcg IH Q6HR PRN 05/17/20 03/06/21 03/04/21 History Digihaler] Azithromycin [Zithromax Z-TIMOTHY] 250 mg PO DAILY #6 tab 05/18/20 03/06/21 03/04/21 Rx Ondansetron [Zofran ODT TAB] 8 mg PO Q8HR PRN #10 05/18/20 03/06/21 03/04/21 Rx Calcium Carbonate [Tums 500MG CHEW] 750 mg PO QDAY 03/01/21 03/06/21 03/04/21 History Active Medications: Generic Name Dose Route Start Last Admin Trade Name Freq PRN Reason Stop Dose Admin Acetaminophen 650 mg 03/04/21 11:04 Acetaminophen 325 Mg Tab PO Q4H PRN Pain MILD(1-3)/Fever >100.5/MCDANIEL Albuterol 2.5 mg 03/04/21 11:28 Albuterol 2.5 Mg/3 Ml Nebu IH Q4H PRN Shortness Of Breath Aspirin 81 mg 03/04/21 12:00 03/06/21 09:32 Aspirin Ec 81 Mg Tab PO 81 mg QDAY LENCHO Administration Atorvastatin Calcium 40 mg 03/04/21 22:00 03/06/21 21:24 Atorvastatin 40 Mg Tab PO 40 mg QHS LENCHO Administration Calcitriol 1 mcg 03/04/21 12:00 03/06/21 09:32 Calcitriol 0.5 Mcg Cap PO 1 mcg QDAY LENCHO Administration Calcium Acetate 2,001 mg 03/04/21 12:00 03/06/21 18:00 Calcium Acetate 667 Mg Cap PO 2,001 mg TIDWM LENCHO Administration Fluticasone Propionate 50 mcg 03/04/21 11:01 Fluticasone Propionate Nasal [place] 16 Gm NS QDAY PRN Nasal Congestion Gabapentin 800 mg 03/04/21 14:00 03/06/21 21:12 Gabapentin 400 Mg Cap PO 800 mg TID LENCHO Administration Hydralazine HCl 50 mg 03/04/21 12:00 03/06/21 21:22 Hydralazine 25 Mg Tab PO 50 mg BID LENCHO Administration Sodium Chloride 100 mls @ 999 mls/hr 03/04/21 15:02 Nacl 0.9% IV GREY PRN Hypotension Levetiracetam 500 mg 03/04/21 12:00 03/06/21 21:22 Levetiracetam 500 Mg Tab PO 500 mg BID LENCHO Administration Loperamide HCl 2 mg 03/04/21 11:01 03/05/21 00:46 Loperamide 2 Mg Cap PO 2 mg Q4H PRN Administration Diarrhea Losartan Potassium 50 mg 03/04/21 12:00 03/06/21 09:32 Losartan 50 Mg Tab PO 50 mg QDAY LENCHO Administration Metoclopramide HCl 10 mg 03/04/21 10:56 Metoclopramide 10 Mg/2 Ml Inj IV Q6H PRN Nausea And Vomiting Metoprolol Tartrate 12.5 mg 03/04/21 12:00 03/06/21 21:23 Metoprolol Tartrate 25 Mg Tab PO 12.5 mg BID LENCHO Administration Mirtazapine 15 mg 03/04/21 22:00 03/06/21 21:22 Mirtazapine 15 Mg Tab PO 15 mg QHS LENCHO Administration Ondansetron HCl 4 mg 03/04/21 11:11 Ondansetron 4 Mg/2 Ml Inj IV Q4H PRN Nausea And Vomiting Oxycodone/Acetaminophen 1 tab 03/04/21 11:04 03/06/21 06:04 Oxycodone /Acetaminophen 5-325mg Tab PO 1 tab Q6H PRN Administration Pain, Moderate (4-6) Sodium Chloride 10 ml 03/04/21 22:00 03/06/21 21:25 Sodium Chloride 0.9% 10 Ml Flush Syringe IV 10 ml BID LENCHO Administration Sodium Chloride 10 ml 03/04/21 10:56 Sodium Chloride 0.9% 10 Ml Flush Syringe IV PRN PRN LINE FLUSH Torsemide 20 mg 03/04/21 12:00 03/06/21 09:32 Torsemide 10 Mg Tab PO 20 mg QDAY LENCHO Administration
[2021-03-07] MEDS: CALCIUM ACETATE 667 MG CAP PO SCH ×3 (09:48→18:11)
[2021-03-07] MEDS: GABAPENTIN 400 MG CAP PO SCH ×3 (09:48→23:36)
[2021-03-07] MEDS: EPOETIN ALFA-EPBX 10,000 UNIT/1 ML VIAL SUB-Q PRN (13:27)
[2021-03-07] MEDS: hydrALAZINE 25 MG TAB PO SCH ×2 (15:00→23:32)
[2021-03-07] MEDS: levETIRAcetam 500 MG TAB PO SCH ×2 (15:00→23:33)
[2021-03-07] MEDS: METOPROLOL TARTRATE 25 MG TAB PO SCH ×2 (15:00→23:33)
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
[2021-03-07] MEDS: ASPIRIN EC 81 MG TAB PO SCH (18:11)
[2021-03-07] MEDS: TORSEMIDE 10 MG TAB PO SCH (18:11)
[2021-03-07] MEDS: CALCITRIOL 0.5 MCG CAP PO SCH (18:18)
[2021-03-07] MEDS: LOSARTAN 50 MG TAB PO SCH (18:18)
[2021-03-07] MEDS: MIRTAZAPINE 15 MG TAB PO SCH (23:33)
[2021-03-08 07:54] LABS: Basophils % (Auto) 0.9 % (0.0-1.8); Eosinophils # (Auto) 0.1 K/mm3 (0.0-0.4); Eosinophils % (Auto) 3.2 % (0.0-4.3); Hematocrit 24.7 % (30.3-42.9); Hemoglobin 7.6 gm/dl (10.1-14.3); Lymphocytes # (Auto) 0.5 K/mm3 (1.2-5.4); Lymphocytes % (Auto) 18.8 % (13.4-35.0); Mean Corpuscular HGB Conc 31 % (30-34); Mean Corpuscular Volume 91 fl (79-97); Monocytes # (Auto) 0.3 K/mm3 (0.0-0.8); Monocytes % (Auto) 13.6 % (0.0-7.3); Red Blood Count 2.71 M/mm3 (3.65-5.03); Red Cell Distribution Width 19.6 % (13.2-15.2)
[2021-03-08 08:09] LABS: Platelet Count 52 K/mm3 (140-440)
[2021-03-08 09:04] LABS: Calcium 9.2 mg/dL (8.4-10.2)
--- NOTE | 2021-03-08 09:31 | Progress Note ---
Assessment and Plan Impression: * End stage renal disease * Nondisplaced right patella fracture * Dyspnea secondary to pulmonary edema * Abdominal ascites * CAD s/p PCI in 2017 * Anemia secondary to ESRD * Secondary hyperparathyroidism * Medical noncompliance Plan: * Patient is s/p HD yesterday. No acute need for HD today * Continue TTS schedule * UF as tolerated * Ortho recommendations noted * PT pending * Epogen TIW prn * Renal/HD diet Subjective Date of service: 03/08/21 Interval history: No acute events overnight. Patient is resting comfortably Objective - Vital Signs Vital signs: Vital Signs - 12hr 03/07/21 03/08/21 23:32 04:01 Temperature 97.3 F L Pulse Rate 86 73 Respiratory 16 Rate Blood Pressure 127/64 109/63 O2 Sat by Pulse 100 Oximetry - General Appearance General appearance: well-developed, well-nourished EENT: ATNC Respiratory: Present: Clear to Ascultation Cardiology: regular, S1S2 Gastrointestinal: no tenderness Integumentary: warm and dry Neurologic: no focal deficit Psychiatric: cooperative - Lab 03/08/21 07:15 03/08/21 07:15 Most recent lab results Calcium 9.2 mg/dL (8.4-10.2) 03/08/21 07:15 Magnesium 1.90 mg/dL (1.7-2.3) 03/04/21 09:14 Medications & Allergies - Medications Allergies/Adverse Reactions: Allergies No Known Allergies Allergy (Verified 03/04/21 07:25) Home Medications: Home Medications Medication Instructions Recorded Confirmed Last Taken Type Fluticasone [Flonase] 1 spray NS QDAY PRN 12/01/19 03/06/21 03/04/21 History Gabapentin [Neurontin] 800 mg PO TID #90 tab 02/02/20 03/06/21 03/04/21 Rx Mirtazapine [Remeron 15mg TAB] 15 mg PO QHS #30 tab 02/02/20 03/06/21 03/04/21 Rx Acetaminophen [Acetaminophen TAB] 650 mg PO Q4H PRN tablet 04/21/20 03/06/21 03/04/21 Rx Aspirin EC [Halfprin EC] 81 mg PO QDAY #30 tablet 04/21/20 03/06/21 03/04/21 Rx AtorvaSTATin [Lipitor] 40 mg PO QHS #30 tablet 04/21/20 03/06/21 03/04/21 Rx Calcium Acetate [Phoslo] 2,001 mg PO TIDWM #30 capsule 04/21/20 03/06/21 03/04/21 Rx Clopidogrel [Plavix] 75 mg PO QDAY #30 tab 04/21/20 03/06/21 03/04/21 Rx Epoetin Hiro 20,000 Unit [Procrit] 20,000 unit IV GREY vial 04/21/20 03/06/21 03/04/21 Rx Loperamide [Imodium] 2 mg PO Q4HR PRN #24 capsule 04/21/20 03/06/21 03/04/21 Rx Losartan [Cozaar] 50 mg PO QDAY #30 tablet 04/21/20 03/06/21 03/04/21 Rx Metoprolol [Lopressor TAB] 12.5 mg PO BID #60 tablet 04/21/20 03/06/21 03/04/21 Rx Torsemide [Demadex] 20 mg PO QDAY tablet 04/21/20 03/06/21 03/04/21 Rx calcitrioL [Rocaltrol] 1 mcg PO QDAY #30 cap 04/21/20 03/06/21 03/04/21 Rx hydrALAZINE [Apresoline TAB] 50 mg PO BID #120 tablet 04/21/20 03/06/21 03/04/21 Rx levETIRAcetam [Keppra TAB] 500 mg PO BID #60 tablet 04/21/20 03/06/21 03/04/21 Rx Albuterol Sulfate [Proair 90 mcg IH Q6HR PRN 05/17/20 03/06/21 03/04/21 History Digihaler] Azithromycin [Zithromax Z-TIMOTHY] 250 mg PO DAILY #6 tab 05/18/20 03/06/21 03/04/21 Rx Ondansetron [Zofran ODT TAB] 8 mg PO Q8HR PRN #10 05/18/20 03/06/21 03/04/21 Rx Calcium Carbonate [Tums 500MG CHEW] 750 mg PO QDAY 03/01/21 03/06/21 03/04/21 History Active Medications: Generic Name Dose Route Start Last Admin Trade Name Freq PRN Reason Stop Dose Admin Acetaminophen 650 mg 03/04/21 11:04 Acetaminophen 325 Mg Tab PO Q4H PRN Pain MILD(1-3)/Fever >100.5/MCDANIEL Albuterol 2.5 mg 03/04/21 11:28 Albuterol 2.5 Mg/3 Ml Nebu IH Q4H PRN Shortness Of Breath Aspirin 81 mg 03/04/21 12:00 03/07/21 18:11 Aspirin Ec 81 Mg Tab PO 81 mg QDAY LENCHO Administration Atorvastatin Calcium 40 mg 03/04/21 22:00 03/07/21 23:34 Atorvastatin 40 Mg Tab PO 40 mg QHS LENCHO Administration Calcitriol 1 mcg 03/04/21 12:00 03/07/21 18:18 Calcitriol 0.5 Mcg Cap PO 1 mcg QDAY LENCHO Administration Calcium Acetate 2,001 mg 03/04/21 12:00 03/07/21 18:11 Calcium Acetate 667 Mg Cap PO 2,001 mg TIDWM LENCHO Administration Fluticasone Propionate 50 mcg 03/04/21 11:01 Fluticasone Propionate Nasal [place] 16 Gm NS QDAY PRN Nasal Congestion Gabapentin 800 mg 03/04/21 14:00 03/07/21 23:36 Gabapentin 400 Mg Cap PO 800 mg TID LENCHO Administration Hydralazine HCl 50 mg 03/04/21 12:00 03/07/21 23:32 Hydralazine 25 Mg Tab PO 50 mg BID LENCHO Administration Sodium Chloride 100 mls @ 999 mls/hr 03/04/21 15:02 Nacl 0.9% IV GREY PRN Hypotension Levetiracetam 500 mg 03/04/21 12:00 03/07/21 23:33 Levetiracetam 500 Mg Tab PO 500 mg BID LENCHO Administration Loperamide HCl 2 mg 03/04/21 11:01 03/05/21 00:46 Loperamide 2 Mg Cap PO 2 mg Q4H PRN Administration Diarrhea Losartan Potassium 50 mg 03/04/21 12:00 03/07/21 18:18 Losartan 50 Mg Tab PO 50 mg QDAY LENCHO Administration Metoclopramide HCl 10 mg 03/04/21 10:56 Metoclopramide 10 Mg/2 Ml Inj IV Q6H PRN Nausea And Vomiting Metoprolol Tartrate 12.5 mg 03/04/21 12:00 03/07/21 23:33 Metoprolol Tartrate 25 Mg Tab PO 12.5 mg BID LENCHO Administration Mirtazapine 15 mg 03/04/21 22:00 03/07/21 23:33 Mirtazapine 15 Mg Tab PO 15 mg QHS LENCHO Administration Ondansetron HCl 4 mg 03/04/21 11:11 Ondansetron 4 Mg/2 Ml Inj IV Q4H PRN Nausea And Vomiting Oxycodone/Acetaminophen 1 tab 03/04/21 11:04 03/06/21 06:04 Oxycodone /Acetaminophen 5-325mg Tab PO 1 tab Q6H PRN Administration Pain, Moderate (4-6) Sodium Chloride 10 ml 03/04/21 22:00 03/07/21 23:37 Sodium Chloride 0.9% 10 Ml Flush Syringe IV Not Given BID LENCHO Sodium Chloride 10 ml 03/04/21 10:56 Sodium Chloride 0.9% 10 Ml Flush Syringe IV PRN PRN LINE FLUSH Torsemide 20 mg 03/04/21 12:00 03/07/21 18:11 Torsemide 10 Mg Tab PO 20 mg QDAY LENCHO Administration
[2021-03-08] MEDS: CALCIUM ACETATE 667 MG CAP PO SCH ×3 (10:21→17:25)
[2021-03-08] MEDS: ASPIRIN EC 81 MG TAB PO SCH (10:21)
[2021-03-08] MEDS: LOSARTAN 50 MG TAB PO SCH (10:22)
[2021-03-08] MEDS: TORSEMIDE 10 MG TAB PO SCH (10:22)
[2021-03-08] MEDS: levETIRAcetam 500 MG TAB PO SCH ×2 (10:22→23:26)
[2021-03-08] MEDS: GABAPENTIN 400 MG CAP PO SCH ×3 (10:22→20:33)
[2021-03-08] MEDS: METOPROLOL TARTRATE 25 MG TAB PO SCH ×2 (10:23→23:27)
[2021-03-08] MEDS: hydrALAZINE 25 MG TAB PO SCH ×2 (10:24→23:26)
--- NOTE | 2021-03-08 14:36 | Progress Note ---
Assessment and Plan Assessment and plan: Patient is a 61-year-old -Gabonese female with known history of end-stage renal disease on hemodialysis on Tuesdays, and Saturdays, CHF, hypertension, diabetes mellitus, seizure disorder, CVA, COPD on chronic home oxygen presents to the emergency room today with complaint of shortness of breath, abdominal distention and low blood counts. Patient was not in the hospital and left AGAINST MEDICAL ADVICE even following diagnosis of right knee fracture did appear to be acute worsening shortness of breath. Considering improvement in respiratory status after dialysis she signed out against AMA she tells me that he was requesting that to go take care of her grandchild. She had a time is also pending paracentesis when she left AGAINST MEDICAL ADVICE She returns today with worsening ascites and fluid overload symptomatic requesting further evaluation and admission. Work-up in the emergency room today reveals hemoglobin level of 7.8 and Potassium level was low at 3.3. During this admission she required a unit of packed red blood cell. He denies any nausea vomiting diarrhea she denies any chest pain at this time. She does use home oxygen. 03/05: Continue supportive care, anticipate further paracentesis in AM. Hematology consult due to noted Pancytopenia. 03/06: Creamery Worker input noted. Okay to continue with paracentesis. Awaiting diagnostic radiologist for paracentesis. Following paracentesis and evaluation by orthopedic surgeon patient can be discharged. PT OT consulted awaiting. Continue hemodialysis and electrolytes management per forensic document examiner. 03/07; Orthopedics evaluation is pending. Patient had paracentesis and drained about 900 mL of blood-tinged fluid, sent for labs, prelim result shows fluid is transudative. Nephrology is following for hemodialysis. PT OT evaluation still pending. Thrombocytopenia is chronic. 03/08; patient was evaluated by Ortho and recommend physical therapy and weight- bear as tolerated. Patient was evaluated by physical therapy and recommend SNF. Discussed with social sciences lecturer. (1) End stage renal disease on dialysis Current Visit: Yes Status: Chronic Plan to address problem: Patient on dialysis on Saturday, and Saturday. Awaits nephrology evaluation and recommendations. (2) Anemia in chronic kidney disease Current Visit: Yes Status: Chronic Qualifiers: Plan to address problem: We will monitor CBC. Patient will be transfused packed red blood cells if needed. (3) Ascites Current Visit: No Status: Chronic Plan to address problem: Patient to be scheduled for paracentesis. Due to being the weekend the ED doctor has graciously agreed to perform thoracentesis at bedside patient may still need further study done by diagnostic radiology. (4) Hypokalemia Current Visit: Yes Status: Acute Plan to address problem: Potassium repleted. We will monitor chemistry. (5) right knee pain with acute displaced fracture Will obtain orthopedic consult (6) chronic thrombocytopenia (7) diabetes mellitus (8) prior history of stroke (9) DVT prophylaxis Current Visit: No Status: Acute Plan to address problem: Patient placed on sequential compression device due to chronic thrombocytopenia will avoid heparin-like products. We will also hold Plavix.. (7) Full code status Current Visit: No Status: Acute Plan to address problem: Patient is a full code. Discussed extensively about noncompliance patient verbalized understanding will be more compliant History Interval history: Patient was seen and evaluated this morning Patient stated no abdominal pain and her abdomen is flat after paracentesis Her right knee is bothering her Hospitalist Physical - Physical exam Narrative exam: Not in cardiopulmonary distress. The patient appeared well nourished and normally developed. Vital signs as documented. Head exam is unremarkable. No scleral icterus . Neck is without jugular venous distension, thyromegaly, or carotid bruits. Lungs are clear to auscultation. Cardiac exam reveals regular rate and Rhythm. Abdominal exam reveals normal bowel sounds, nontender, no organomegaly. Extremities are nonedematous and both femoral and pedal pulses are normal. MELTER SUPERVISOR OXYGEN FURNACE: Alert and oriented 3. No focal weakness. - Constitutional Vitals: Temp Pulse Resp BP Pulse Ox 97.7 F 68 22 130/67 96 03/08/21 12:26 03/08/21 12:26 03/08/21 12:26 03/08/21 12:26 03/08/21 12:26 Results - Labs CBC & Chem 7: 03/08/21 07:15 03/08/21 07:15 Labs: Laboratory Last Values WBC 2.4 K/mm3 (4.5-11.0) L 03/08/21 07:15 RBC 2.71 M/mm3 (3.65-5.03) L 03/08/21 07:15 Hgb 7.6 gm/dl (10.1-14.3) L 03/08/21 07:15 Hct 24.7 % (30.3-42.9) L 03/08/21 07:15 MCV 91 fl (79-97) 03/08/21 07:15 MCH 28 pg (28-32) 03/08/21 07:15 MCHC 31 % (30-34) 03/08/21 07:15 RDW 19.6 % (13.2-15.2) H 03/08/21 07:15 Plt Count 52 K/mm3 (140-440) L 03/08/21 07:15 Lymph % (Auto) 18.8 % (13.4-35.0) 03/08/21 07:15 [place] % (Auto) 13.6 % (0.0-7.3) H 03/08/21 07:15 Eos % (Auto) 3.2 % (0.0-4.3) 03/08/21 07:15 Baso % (Auto) 0.9 % (0.0-1.8) 03/08/21 07:15 Lymph # (Auto) 0.5 K/mm3 (1.2-5.4) L 03/08/21 07:15 [place] # (Auto) 0.3 K/mm3 (0.0-0.8) 03/08/21 07:15 Eos # (Auto) 0.1 K/mm3 (0.0-0.4) 03/08/21 07:15 Baso # (Auto) 0.0 K/mm3 (0.0-0.1) 03/08/21 07:15 Add Manual Diff Complete 03/05/21 08:20 Total Counted 100 03/05/21 08:20 Seg Neutrophils % 63.5 % (40.0-70.0) 03/08/21 07:15 Seg Neuts % (Manual) 70.0 % (40.0-70.0) 03/05/21 08:20 Lymphocytes % (Manual) 26.0 % (13.4-35.0) 03/05/21 08:20 Monocytes % (Manual) 2.0 % (0.0-7.3) 03/05/21 08:20 Eosinophils % (Manual) 2.0 % (0.0-4.3) 03/05/21 08:20 Nucleated RBC % Not Reportable 03/05/21 08:20 Seg Neutrophils # 1.5 K/mm3 (1.8-7.7) L 03/08/21 07:15 Seg Neutrophils # Man 1.4 K/mm3 (1.8-7.7) L 03/05/21 08:20 Band Neutrophils # 0.0 K/mm3 03/05/21 08:20 Lymphocytes # (Manual) 0.5 K/mm3 (1.2-5.4) L 03/05/21 08:20 Abs React Lymphs (Man) 0.0 K/mm3 03/05/21 08:20 Monocytes # (Manual) 0.0 K/mm3 (0.0-0.8) 03/05/21 08:20 Eosinophils # (Manual) 0.0 K/mm3 (0.0-0.4) 03/05/21 08:20 Basophils # (Manual) 0.0 K/mm3 (0.0-0.1) 03/05/21 08:20 Metamyelocytes # 0.0 K/mm3 03/05/21 08:20 Myelocytes # 0.0 K/mm3 03/05/21 08:20 Promyelocytes # 0.0 K/mm3 03/05/21 08:20 Blast Cells # 0.0 K/mm3 03/05/21 08:20 WBC Morphology Not Reportable 03/05/21 08:20 Hypersegmented Neuts Not Reportable 03/05/21 08:20 Hyposegmented Neuts Not Reportable 03/05/21 08:20 Hypogranular Neuts Not Reportable 03/05/21 08:20 Smudge Cells Not Reportable 03/05/21 08:20 Toxic Granulation Not Reportable 03/05/21 08:20 Toxic Vacuolation Not Reportable 03/05/21 08:20 Dohle Bodies Not Reportable 03/05/21 08:20 Pelger-Huet Anomaly Not Reportable 03/05/21 08:20 Graciela Rods Not Reportable 03/05/21 08:20 Platelet Estimate Consistent w auto 03/05/21 08:20 Clumped Platelets Not Reportable 03/05/21 08:20 Plt Clumps, EDTA Not Reportable 03/05/21 08:20 Large Platelets Not Reportable 03/05/21 08:20 Giant Platelets Not Reportable 03/05/21 08:20 Platelet Satelliting Not Reportable 03/05/21 08:20 Plt Morphology Comment Not Reportable 03/05/21 08:20 RBC Morphology Not Reportable 03/05/21 08:20 Dimorphic RBCs Not Reportable 03/05/21 08:20 Polychromasia Not Reportable 03/05/21 08:20 Hypochromasia Few 03/05/21 08:20 Poikilocytosis Not Reportable 03/05/21 08:20 Anisocytosis 1+ 03/05/21 08:20 Microcytosis Not Reportable 03/05/21 08:20 Macrocytosis Not Reportable 03/05/21 08:20 Spherocytes Not Reportable 03/05/21 08:20 Pappenheimer Bodies Not Reportable 03/05/21 08:20 Sickle Cells Not Reportable 03/05/21 08:20 Target Cells Not Reportable 03/05/21 08:20 Tear Drop Cells Not Reportable 03/05/21 08:20 Ovalocytes 1+ 03/05/21 08:20 Helmet Cells Not Reportable 03/05/21 08:20 [place] Bodies Not Reportable 03/05/21 08:20 Arboles Rings Not Reportable 03/05/21 08:20 Juliet Cells Not Reportable 03/05/21 08:20 Bite Cells Not Reportable 03/05/21 08:20 Crenated Cell Not Reportable 03/05/21 08:20 Elliptocytes Not Reportable 03/05/21 08:20 Acanthocytes (Spur) Not Reportable 03/05/21 08:20 Rouleaux Not Reportable 03/05/21 08:20 Hemoglobin C Crystals Not Reportable 03/05/21 08:20 Schistocytes Not Reportable 03/05/21 08:20 Malaria parasites Not Reportable 03/05/21 08:20 Enrrique Bodies Not Reportable 03/05/21 08:20 Hem Pathologist Commnt No 03/05/21 08:20 PT 16.5 Sec. (12.2-14.9) H 03/04/21 09:14 INR 1.27 (0.87-1.13) H 03/04/21 09:14 Fibrinogen 328 mg/dl (211-480) 03/06/21 10:22 Sodium 139 mmol/L (137-145) 03/08/21 07:15 Potassium 4.6 mmol/L (3.6-5.0) 03/08/21 07:15 Chloride 99.7 mmol/L (98-107) 03/08/21 07:15 Carbon Dioxide 29 mmol/L (22-30) 03/08/21 07:15 Anion Gap 15 mmol/L 03/08/21 07:15 BUN 18 mg/dL (7-17) H 03/08/21 07:15 Creatinine 4.8 mg/dL (0.6-1.2) H 03/08/21 07:15 Estimated GFR 11 ml/min 03/08/21 07:15 BUN/Creatinine Ratio 4 % 03/08/21 07:15 Glucose 87 mg/dL (65-100) 03/08/21 07:15 POC Glucose 87 mg/dL (70-105) 03/08/21 12:31 Calcium 9.2 mg/dL (8.4-10.2) 03/08/21 07:15 Magnesium 1.90 mg/dL (1.7-2.3) 03/04/21 09:14 Total Bilirubin 0.80 mg/dL (0.1-1.2) 03/05/21 08:20 AST 11 units/L (5-40) 03/05/21 08:20 ALT < 5 units/L (7-56) L 03/05/21 08:20 Alkaline Phosphatase 77 units/L (35-129) 03/05/21 08:20 Total Creatine Kinase 36 units/L (30-135) 03/04/21 09:14 NT-Pro-B Natriuret Pep > 42844 pg/mL (0-900) H 03/04/21 09:14 Total Protein 6.6 g/dL (6.3-8.2) 03/05/21 08:20 Albumin 3.3 g/dL (3.9-5) L 03/05/21 08:20 Albumin/Globulin Ratio 1.0 % 03/05/21 08:20 Fluid Type Peritoneal 03/04/21 Unknown Fluid Color Yellow 03/04/21 Unknown Fluid Appearance Cloudy 03/04/21 Unknown Fluid WBC 50 /mm3 03/04/21 Unknown Fluid RBC 9625 /mm3 03/04/21 Unknown Fluid Seg Neutrophils 4.0 % 03/04/21 Unknown Fluid Lymphocytes 7.0 % 03/04/21 Unknown Fluid Monocytes 89.0 % 03/04/21 Unknown Fluid Glucose Not Reportable 03/04/21 Unknown Fluid Total Protein Not Reportable 03/04/21 Unknown Fluid Amylase Not Reportable 03/04/21 Unknown Nasal Screen MRSA (PCR) Negative (Negative) 03/05/21 01:30 Microbiology: Microbiology 03/04/21 14:28 Peritioneal Dialysate Peritoneal Dialysate Culture - Preliminary [place]/IV: Voiding Method Incontinent Active Medications - Current Medications Current Medications: Generic Name Dose Route Start Last Admin Trade Name Freq PRN Reason Stop Dose Admin Acetaminophen 650 mg 03/04/21 11:04 Acetaminophen 325 Mg Tab PO Q4H PRN Pain MILD(1-3)/Fever >100.5/MCDANIEL Albuterol 2.5 mg 03/04/21 11:28 Albuterol 2.5 Mg/3 Ml Nebu IH Q4H PRN Shortness Of Breath Aspirin 81 mg 03/04/21 12:00 03/08/21 10:21 Aspirin Ec 81 Mg Tab PO 81 mg QDAY LENCHO Administration Atorvastatin Calcium 40 mg 03/04/21 22:00 03/07/21 23:34 Atorvastatin 40 Mg Tab PO 40 mg QHS LENCHO Administration Calcitriol 1 mcg 03/04/21 12:00 03/07/21 18:18 Calcitriol 0.5 Mcg Cap PO 1 mcg QDAY LENCHO Administration Calcium Acetate 2,001 mg 03/04/21 12:00 03/08/21 13:20 Calcium Acetate 667 Mg Cap PO 2,001 mg TIDWM LENCHO Administration Fluticasone Propionate 50 mcg 03/04/21 11:01 Fluticasone Propionate Nasal [place] 16 Gm NS QDAY PRN Nasal Congestion Gabapentin 800 mg 03/04/21 14:00 03/08/21 13:20 Gabapentin 400 Mg Cap PO 800 mg TID LENCHO Administration Hydralazine HCl 50 mg 03/04/21 12:00 03/08/21 10:24 Hydralazine 25 Mg Tab PO 50 mg BID LENCHO Administration Sodium Chloride 100 mls @ 999 mls/hr 03/04/21 15:02 Nacl 0.9% IV GREY PRN Hypotension Levetiracetam 500 mg 03/04/21 12:00 03/08/21 10:22 Levetiracetam 500 Mg Tab PO 500 mg BID LENCHO Administration Loperamide HCl 2 mg 03/04/21 11:01 03/05/21 00:46 Loperamide 2 Mg Cap PO 2 mg Q4H PRN Administration Diarrhea Losartan Potassium 50 mg 03/04/21 12:00 03/08/21 10:22 Losartan 50 Mg Tab PO 50 mg QDAY LENCHO Administration Metoclopramide HCl 10 mg 03/04/21 10:56 Metoclopramide 10 Mg/2 Ml Inj IV Q6H PRN Nausea And Vomiting Metoprolol Tartrate 12.5 mg 03/04/21 12:00 03/08/21 10:23 Metoprolol Tartrate 25 Mg Tab PO 12.5 mg BID LENCHO Administration Mirtazapine 15 mg 03/04/21 22:00 03/07/21 23:33 Mirtazapine 15 Mg Tab PO 15 mg QHS LENCHO Administration Ondansetron HCl 4 mg 03/04/21 11:11 Ondansetron 4 Mg/2 Ml Inj IV Q4H PRN Nausea And Vomiting Oxycodone/Acetaminophen 1 tab 03/04/21 11:04 03/06/21 06:04 Oxycodone /Acetaminophen 5-325mg Tab PO 1 tab Q6H PRN Administration Pain, Moderate (4-6) Sodium Chloride 10 ml 03/04/21 22:00 03/08/21 10:25 Sodium Chloride 0.9% 10 Ml Flush Syringe IV 10 ml BID LENCHO Administration Sodium Chloride 10 ml 03/04/21 10:56 Sodium Chloride 0.9% 10 Ml Flush Syringe IV PRN PRN LINE FLUSH Torsemide 20 mg 03/04/21 12:00 03/08/21 10:22 Torsemide 10 Mg Tab PO 20 mg QDAY LENCHO Administration
[2021-03-08] MEDS: CALCITRIOL 0.5 MCG CAP PO SCH (17:25)
[2021-03-08] MEDS: MIRTAZAPINE 15 MG TAB PO SCH (23:28)
[2021-03-09 07:40] LABS: Hematocrit 27.4 % (30.3-42.9); Hemoglobin 8.4 gm/dl (10.1-14.3); Mean Corpuscular HGB Conc 31 % (30-34); Mean Corpuscular Volume 92 fl (79-97); Red Blood Count 2.98 M/mm3 (3.65-5.03)
[2021-03-09] MEDS ORDERED: SODIUM CHLORIDE 0.9% 100 ML IV PRN (07:57)
--- NOTE | 2021-03-09 07:59 | Progress Note ---
Assessment and Plan Impression: * End stage renal disease * Nondisplaced right patella fracture * Dyspnea secondary to pulmonary edema * Abdominal ascites * CAD s/p PCI in 2017 * Anemia secondary to ESRD * Secondary hyperparathyroidism * Medical noncompliance Plan: * HD today - 3K/2.5Ca bath * Continue TTS schedule * UF as tolerated - goal 2 L * Stop Gabapentin 800mg TID - mental status not at baseline, dose too high for ESRD patient * Ortho recommendations noted * PT eval attempted - patient refused * Epogen TIW - 10k * Renal/HD diet Subjective Date of service: 03/09/21 Interval history: Patient reports abdominal discomfort. Objective - Vital Signs Vital signs: Vital Signs - 12hr 03/08/21 03/08/21 03/08/21 21:00 22:13 23:26 Temperature 98.0 F Pulse Rate 80 80 Respiratory 18 18 Rate Blood Pressure 147/62 142/62 O2 Sat by Pulse 94 94 Oximetry - General Appearance General appearance: well-developed, well-nourished, frail EENT: ATNC Respiratory: Present: Clear to Ascultation Cardiology: regular, S1S2 Gastrointestinal: tenderness, distended (soft) Musculoskeletal: other (no edema) Psychiatric: cooperative - Lab 03/09/21 06:47 03/08/21 07:15 Most recent lab results Calcium 9.2 mg/dL (8.4-10.2) 03/08/21 07:15 Magnesium 1.90 mg/dL (1.7-2.3) 03/04/21 09:14 Medications & Allergies - Medications Allergies/Adverse Reactions: Allergies No Known Allergies Allergy (Verified 03/04/21 07:25) Home Medications: Home Medications Medication Instructions Recorded Confirmed Last Taken Type Fluticasone [Flonase] 1 spray NS QDAY PRN 12/01/19 03/06/21 03/04/21 History Gabapentin [Neurontin] 800 mg PO TID #90 tab 02/02/20 03/06/21 03/04/21 Rx Mirtazapine [Remeron 15mg TAB] 15 mg PO QHS #30 tab 02/02/20 03/06/21 03/04/21 Rx Acetaminophen [Acetaminophen TAB] 650 mg PO Q4H PRN tablet 04/21/20 03/06/21 03/04/21 Rx Aspirin EC [Halfprin EC] 81 mg PO QDAY #30 tablet 04/21/20 03/06/21 03/04/21 Rx AtorvaSTATin [Lipitor] 40 mg PO QHS #30 tablet 04/21/20 03/06/21 03/04/21 Rx Calcium Acetate [Phoslo] 2,001 mg PO TIDWM #30 capsule 04/21/20 03/06/21 03/04/21 Rx Clopidogrel [Plavix] 75 mg PO QDAY #30 tab 04/21/20 03/06/21 03/04/21 Rx Epoetin Hiro 20,000 Unit [Procrit] 20,000 unit IV GREY vial 04/21/20 03/06/21 03/04/21 Rx Loperamide [Imodium] 2 mg PO Q4HR PRN #24 capsule 04/21/20 03/06/21 03/04/21 Rx Losartan [Cozaar] 50 mg PO QDAY #30 tablet 04/21/20 03/06/21 03/04/21 Rx Metoprolol [Lopressor TAB] 12.5 mg PO BID #60 tablet 04/21/20 03/06/21 03/04/21 Rx Torsemide [Demadex] 20 mg PO QDAY tablet 04/21/20 03/06/21 03/04/21 Rx calcitrioL [Rocaltrol] 1 mcg PO QDAY #30 cap 04/21/20 03/06/21 03/04/21 Rx hydrALAZINE [Apresoline TAB] 50 mg PO BID #120 tablet 04/21/20 03/06/21 03/04/21 Rx levETIRAcetam [Keppra TAB] 500 mg PO BID #60 tablet 04/21/20 03/06/21 03/04/21 Rx Albuterol Sulfate [Proair 90 mcg IH Q6HR PRN 05/17/20 03/06/21 03/04/21 History Digihaler] Azithromycin [Zithromax Z-TIMOTHY] 250 mg PO DAILY #6 tab 05/18/20 03/06/21 03/04/21 Rx Ondansetron [Zofran ODT TAB] 8 mg PO Q8HR PRN #10 05/18/20 03/06/21 03/04/21 Rx Calcium Carbonate [Tums 500MG CHEW] 750 mg PO QDAY 0703/06/21 03/04/21 History Active Medications: Generic Name Dose Route Start Last Admin Trade Name Freq PRN Reason Stop Dose Admin Acetaminophen 650 mg 03/04/21 11:04 Acetaminophen 325 Mg Tab PO Q4H PRN Pain MILD(1-3)/Fever >100.5/MCDANIEL Albuterol 2.5 mg 03/04/21 11:28 Albuterol 2.5 Mg/3 Ml Nebu IH Q4H PRN Shortness Of Breath Aspirin 81 mg 03/04/21 12:00 03/08/21 10:21 Aspirin Ec 81 Mg Tab PO 81 mg QDAY LENCHO Administration Atorvastatin Calcium 40 mg 03/04/21 22:00 03/08/21 23:27 Atorvastatin 40 Mg Tab PO 40 mg QHS LENCHO Administration Calcitriol 1 mcg 03/04/21 12:00 03/08/21 17:25 Calcitriol 0.5 Mcg Cap PO 1 mcg QDAY LENCHO Administration Calcium Acetate 2,001 mg 03/04/21 12:00 03/08/21 17:25 Calcium Acetate 667 Mg Cap PO 2,001 mg TIDWM LENCHO Administration Fluticasone Propionate 50 mcg 03/04/21 11:01 Fluticasone Propionate Nasal [place] 16 Gm NS QDAY PRN Nasal Congestion Gabapentin 800 mg 03/04/21 14:00 03/08/21 20:33 Gabapentin 400 Mg Cap PO 800 mg TID LENCHO Administration Hydralazine HCl 50 mg 03/04/21 12:00 03/08/21 23:26 Hydralazine 25 Mg Tab PO 50 mg BID LENCHO Administration Sodium Chloride 100 mls @ 999 mls/hr 03/04/21 15:02 Nacl 0.9% IV GREY PRN Hypotension Levetiracetam 500 mg 03/04/21 12:00 03/08/21 23:26 Levetiracetam 500 Mg Tab PO 500 mg BID LENCHO Administration Loperamide HCl 2 mg 03/04/21 11:01 03/05/21 00:46 Loperamide 2 Mg Cap PO 2 mg Q4H PRN Administration Diarrhea Losartan Potassium 50 mg 03/04/21 12:00 03/08/21 10:22 Losartan 50 Mg Tab PO 50 mg QDAY LENCHO Administration Metoclopramide HCl 10 mg 03/04/21 10:56 Metoclopramide 10 Mg/2 Ml Inj IV Q6H PRN Nausea And Vomiting Metoprolol Tartrate 12.5 mg 03/04/21 12:00 03/08/21 23:27 Metoprolol Tartrate 25 Mg Tab PO 12.5 mg BID LENCHO Administration Mirtazapine 15 mg 03/04/21 22:00 03/08/21 23:28 Mirtazapine 15 Mg Tab PO 15 mg QHS LENCHO Administration Ondansetron HCl 4 mg 03/04/21 11:11 Ondansetron 4 Mg/2 Ml Inj IV Q4H PRN Nausea And Vomiting Oxycodone/Acetaminophen 1 tab 03/04/21 11:04 03/06/21 06:04 Oxycodone /Acetaminophen 5-325mg Tab PO 1 tab Q6H PRN Administration Pain, Moderate (4-6) Sodium Chloride 10 ml 03/04/21 22:00 03/08/21 23:29 Sodium Chloride 0.9% 10 Ml Flush Syringe IV Not Given BID LENCHO Sodium Chloride 10 ml 03/04/21 10:56 Sodium Chloride 0.9% 10 Ml Flush Syringe IV PRN PRN LINE FLUSH Torsemide 20 mg 03/04/21 12:00 03/08/21 10:22 Torsemide 10 Mg Tab PO 20 mg QDAY LENCHO Administration
[2021-03-09 08:26] LABS: Platelet Count 66 K/mm3 (140-440)
[2021-03-09] MEDS: CALCIUM ACETATE 667 MG CAP PO SCH ×3 (09:07→18:16)
--- NOTE | 2021-03-09 10:35 | Discharge Summary ---
Providers - Providers Date of Admission: 03/05/21 10:44 Date of discharge: 03/09/21 Attending physician: CHERELLE NORMAN MD 03/04/21 10:48 Consult to Physician [CONS] Urgent Comment: Consulting Provider: VIVEK HANLEY Physician Instructions: Reason For Exam: esrd 03/04/21 11:11 Consult to Physician [CONS] Routine Comment: Consulting Provider: ISELA ESQUIVEL Physician Instructions: Reason For Exam: knee fracture 03/05/21 11:53 Consult to Physician [CONS] Routine Comment: Consulting Provider: KARLA BLACKWELL Physician Instructions: Reason For Exam: pancytopenia, need improved plt for paracentesis 03/05/21 13:04 Occupational Therapy Evaluate and Treat [CONS] Routine Comment: Reason For Exam: DEBILITY Physical Therapy Evaluation and Treat [CONS] Routine Comment: Reason For Exam: DEBILITY, KNEE CAP FRACTURE 03/07/21 17:36 Physical Therapy Evaluation and Treat [CONS] Routine Comment: Gait training range of motion exercises Reason For Exam: 6-week old right patella fracture Weight bearing status?: Full wt bearing Assistive devices?: Yes If so list: Walker 03/08/21 14:32 Consult to Case Management [CONS] Routine Services Needed at Discharge: Other Notified:: cm notified Comment:: Patient need SNF Primary care physician: CONTENT CHECKER Hospitalization Reason for admission: Nondisplaced right patellar fracture, ascites, ESRD on HD Condition: Stable Hospital course: History of present illness: Patient is a 61-year-old -Hung[place] female with known history of end-stage renal disease on hemodialysis on Tuesdays, and Saturdays, CHF, hypertension, diabetes mellitus, seizure disorder, CVA, COPD on chronic home oxygen presents to the emergency room today with complaint of shortness of breath, abdominal distention and low blood counts. Patient was not in the hospital and left AGAINST MEDICAL ADVICE even following diagnosis of right knee fracture did appear to be acute worsening shortness of breath. Considering improvement in respiratory status after dialysis she signed out against AMA she tells me that he was requesting that to go take care of her grandchild. She had a time is also pending paracentesis when she left AGAINST MEDICAL ADVICE She returns today with worsening ascites and fluid overload symptomatic requesting further evaluation and admission. Work-up in the emergency room today reveals hemoglobin level of 7.8 and Potassium level was low at 3.3. During this admission she required a unit of packed red blood cell. He denies any nausea vomiting diarrhea she denies any chest pain at this time. She does use home oxygen. She still complains of being unable to bear weight on her right knee. Hospital course 03/05: Continue supportive care, anticipate further paracentesis in AM. Hematology consult due to noted Pancytopenia. 03/06: Fireworks Assembly Supervisor input noted. Okay outpatient dialysis. With paracentesis. Awaiting diagnostic radiologist for paracentesis. Following paracentesis and evaluation by orthopedic surgeon patient can be discharged. PT OT consulted aw aiting. Continue hemodialysis and electrolytes management per curtain stretcher assembler. 03/07; Orthopedics evaluation is pending. Patient had paracentesis and drained about 900 mL of blood-tinged fluid, sent for labs, prelim result shows fluid is transudative. Nephrology is following for hemodialysis. PT OT evaluation still pending. Thrombocytopenia is chronic. 03/08; patient was evaluated by Ortho and recommend physical therapy and weight- bear as tolerated. Patient was evaluated by physical therapy and recommend SNF. Discussed with social economist. 03/09; patient was seen and evaluated this morning. She declined to go to rehab rather she wants to go home with home health. Patient was evaluated by orthopedics and patient had nondisplaced right patellar fracture and he recommend physical therapy and weight-bear as tolerated. Patient has been evaluated by nephrology and having dialysis. Patient discharged home and continue outpatient dialysis. Patient was hemodynamically stable at the time of discharge. Discussed with case management and home health arranged at the time of discharge. Disposition: DC/TX- HOME UNDER [facility] Final Discharge Diagnosis (Prints w/discharge instructions): Nondisplaced right patella fracture. Ascites. Anemia of chronic illness. ESRD on HD Time spent for discharge: 35-minutes - Discharge Diagnoses (1) Patellar sleeve fracture of right knee Status: Acute (2) Anemia Status: Acute Qualifiers: Anemia type: due to chronic kidney disease Chronic kidney disease stage: stage 5, not on chronic dialysis Qualified Code(s): N18.5 - Chronic kidney disease, stage 5; D63.1 - Anemia in chronic kidney disease (3) Ascites Status: Acute (4) Thrombocytopenia Status: Acute (5) ESRD needing dialysis Status: Chronic (6) Accelerated hypertension Status: Acute Core Measure Documentation - Palliative Care Palliative Care/ Comfort Measures: Not Applicable - Core Measures Any of the following diagnoses?: none Exam - Physical Exam Narrative exam: Not in cardiopulmonary distress. The patient appeared well nourished and normally developed. Vital signs as documented. Head exam is unremarkable. No scleral icterus . Neck is without jugular venous distension, thyromegaly, or carotid bruits. Lungs are clear to auscultation. Cardiac exam reveals regular rate and Rhythm. Abdominal exam reveals normal bowel sounds, nontender, no organomegaly. Extremities are nonedematous and both femoral and pedal pulses are normal. 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 No focal weakness. - Constitutional Vitals: Temp Pulse Resp BP Pulse Ox 98.0 F 80 18 142/62 94 03/08/21 22:13 03/08/21 23:26 03/08/21 22:13 03/08/21 23:26 03/08/21 22:13 Plan Activity: no restrictions Weight Bearing Status: Full Weight Bearing Diet: low salt, renal Follow up with: PRIMARY CAREMD [Primary Care Provider] - 3-5 Days
[2021-03-09] MEDS ORDERED: METOCLOPRAMIDE 10 MG/2 ML INJ IV PRN (11:00)
[2021-03-09] MEDS: LOSARTAN 50 MG TAB PO SCH (12:33)
[2021-03-09] MEDS: hydrALAZINE 25 MG TAB PO SCH (12:33)
[2021-03-09] MEDS: TORSEMIDE 10 MG TAB PO SCH (12:34)
[2021-03-09] MEDS: levETIRAcetam 500 MG TAB PO SCH (12:34)
[2021-03-09] MEDS: ASPIRIN EC 81 MG TAB PO SCH (12:34)
[2021-03-09] MEDS: METOPROLOL TARTRATE 25 MG TAB PO SCH (12:34)
[2021-03-09] MEDS: EPOETIN ALFA-EPBX 10,000 UNIT/1 ML VIAL SUB-Q PRN (13:30)
[2021-03-09] MEDS: CALCITRIOL 0.5 MCG CAP PO SCH (18:17)
[2021-03-09 18:30] VITALS: BP 138/67
[2021-03-21 08:02] LABS: Hemoglobin A2 Prime SEE SCANNED RESULTS
[2021-03-21 08:03] LABS: Hemoglobin Barts SEE SCANNED RESULTS; Hemoglobin E SEE SCANNED RESULTS; Hemoglobin G SEE SCANNED RESULTS; Hemoglobin Lepore SEE SCANNED RESULTS; Hemoglobin O-Arab SEE SCANNED RESULTS; IEF Confirm SEE SCANNED RESULTS; Interpretation SEE SCANNED RESULTS; Sickle Solubility Test SEE SCANNED RESULTS
== END 2021-03-09 18:55 | disposition home health service (06) | DRG 291 ==
LOC: ED 06:22 → 3A 11:04 → OBSVTOIN 03-05 10:44
PROVIDERS: ADMIT Internal Medicine; ATTEND Internal Medicine
PROC: 5A1D70Z Performance of Urinary Filtration, Intermittent, Less than 6 Hours Per Day (ICD-10-PCS; 2021-03-04)
PROC: 0W9G3ZZ Drainage of Peritoneal Cavity, Percutaneous Approach (ICD-10-PCS; principal; 2021-03-06)
PROC: 5A1D70Z Performance of Urinary Filtration, Intermittent, Less than 6 Hours Per Day (ICD-10-PCS; 2021-03-07)
PROC: 5A1D70Z Performance of Urinary Filtration, Intermittent, Less than 6 Hours Per Day (ICD-10-PCS; 2021-03-09)
DX: I13.2 Hypertensive heart and chronic kidney disease with heart failure and with stage 5 chronic kidney disease, or end stage renal disease (principal); N18.6 End stage renal disease; S82.001A Unspecified fracture of right patella, initial encounter for closed fracture; R18.8 Other ascites; D61.818 Other pancytopenia; E87.6 Hypokalemia; E11.22 Type 2 diabetes mellitus with diabetic chronic kidney disease; I50.9 Heart failure, unspecified; M21.861 Other specified acquired deformities of right lower leg; E21.1 Secondary hyperparathyroidism, not elsewhere classified; Z79.82 Long term (current) use of aspirin; Z79.899 Other long term (current) drug therapy; D69.6 Thrombocytopenia, unspecified; E78.5 Hyperlipidemia, unspecified; Z86.73 Personal history of transient ischemic attack (TIA), and cerebral infarction without residual deficits; G40.909 Epilepsy, unspecified, not intractable, without status epilepticus; D63.1 Anemia in chronic kidney disease; X58.XXXA Exposure to other specified factors, initial encounter; Y93.89 Activity, other specified; Y92.89 Other specified places as the place of occurrence of the external cause; Y99.8 Other external cause status; Z91.19 Patient's noncompliance with other medical treatment and regimen
CPT/HCPCS: 36415; 49083; 71045; 80048; 80053; 82040; 82150; 82550; 82947; 82962; 83735; 83880; 84160; 85007; 85025; 85027; 85384; 85610; 87116; 87641; 89051; 93005; G0378; A9270-GY; J0885

== ENCOUNTER 2021-05-02 04:41 | Observation (INO) | payer MEDICARE ==
[2021-05-02 05:51] LABS: Hematocrit 21.8 % (30.3-42.9); Hemoglobin 6.7 gm/dl (10.1-14.3); INR 1.29 (0.87-1.13); Mean Corpuscular HGB Conc 31 % (30-34); Mean Corpuscular Volume 89 fl (79-97); Platelet Count 101 K/mm3 (140-440); Red Blood Count 2.45 M/mm3 (3.65-5.03); Red Cell Distribution Width 20.4 % (13.2-15.2)
[2021-05-02 05:52] LABS: Partial Thromboplastin Time 35.5 Sec. (24.2-36.6)
--- NOTE | 2021-05-02 05:58 | Emergency Department Report ---
Blank Doc - Documentation Documentation: Medical screening exam: Patient is 61 years old female end-stage renal disease on hemodialysis. Patient brought to the emergency room via EMS from a dialysis center. Patient reported that for her routine dialysis and found that she has a low hemoglobin so she was sent to the ER for evaluation. Patient is alert, in no acute distress. CBC, BMP, PT and PTT and type and screen has been ordered.
[2021-05-02 06:01] LABS: Calcium 9.2 mg/dL (8.4-10.2)
--- NOTE | 2021-05-02 06:51 | Emergency Department Report ---
ED Recheck HPI - General Chief Complaint: Recheck/Abnormal Lab/Rx Stated Complaint: LOW RBC COUNT Time Seen by Provider: 05/02/21 06:10 Source: EMS Mode of arrival: Stretcher Limitations: No Limitations - History of Present Illness Initial Comments: 61-year-old female, history of anemia, end-stage renal disease (), presents to ED with complaint of low hemoglobin. Patient states she received a call on yesterday from the dialysis center stating that she needed to come to the ED because her hemoglobin was 6. Patient did not come on yesterday. She called EMS this morning to bring her to the ED because she knew that she cannot be dialyzed this morning because her hemoglobin was too low. Patient states she was last dialyzed 3 days ago. States she has not missed any days of dialysis. Patient reports she has received blood transfusions in the past. Complaint: abnormal lab (Hemoglobin) -: unknown Returns Today for: CBOAL Symptoms Since Prior Visit: no new symptoms Context: called for abnorm lab res Associated Symptoms: none - Related Data Home Medications Medication Instructions Recorded Confirmed Last Taken Fluticasone [Flonase] 1 spray NS QDAY PRN 12/01/19 03/06/21 03/04/21 Albuterol Sulfate [Proair 90 mcg IH Q6HR PRN 05/17/20 03/06/21 03/04/21 Digihaler] Calcium Carbonate [Tums 500MG CHEW] 750 mg PO QDAY 03/01/21 03/06/21 03/04/21 Previous Rx's Medication Instructions Recorded Last Taken Type Gabapentin [Neurontin] 800 mg PO TID #90 tab 02/02/20 05/02/21 21:55 Rx Mirtazapine [Remeron 15mg TAB] 15 mg PO QHS #30 tab 02/02/20 05/02/21 21:55 Rx Acetaminophen [Acetaminophen TAB] 650 mg PO Q4H PRN tablet 04/21/20 05/03/21 00:45 Rx Aspirin EC [Halfprin EC] 81 mg PO QDAY #30 tablet 04/21/20 03/04/21 Rx AtorvaSTATin [Lipitor] 40 mg PO QHS #30 tablet 04/21/20 05/02/21 22:55 Rx Calcium Acetate [Phoslo] 2,001 mg PO TIDWM #30 capsule 04/21/20 03/04/21 Rx Clopidogrel [Plavix] 75 mg PO QDAY #30 tab 04/21/20 03/04/21 Rx Epoetin Hiro 20,000 Unit [Procrit] 20,000 unit IV GREY vial 04/21/20 03/04/21 Rx Loperamide [Imodium] 2 mg PO Q4HR PRN #24 capsule 04/21/20 05/03/21 03:00 Rx Losartan [Cozaar] 50 mg PO QDAY #30 tablet 04/21/20 03/04/21 Rx Metoprolol [Lopressor TAB] 12.5 mg PO BID #60 tablet 04/21/20 05/01/21 21:00 Rx Torsemide [Demadex] 20 mg PO QDAY tablet 04/21/20 03/04/21 Rx calcitrioL [Rocaltrol] 1 mcg PO QDAY #30 cap 04/21/20 03/04/21 Rx hydrALAZINE [Apresoline TAB] 50 mg PO BID #120 tablet 04/21/20 05/02/21 09:00 Rx levETIRAcetam [Keppra TAB] 500 mg PO BID #60 tablet 04/21/20 05/02/21 21:55 Rx Ondansetron [Zofran ODT TAB] 8 mg PO Q8HR PRN #10 05/18/20 05/02/21 08:55 Rx Allergies Allergy/AdvReac Type Severity Reaction Status Date / Time No Known Allergies Allergy Verified 03/04/21 07:25 ED Review of Systems ROS: Stated complaint: LOW RBC COUNT Other details as noted in HPI Comment: All other systems reviewed and negative Respiratory: denies: shortness of breath Cardiovascular: denies: chest pain Gastrointestinal: denies: nausea, vomiting ED Past Medical Hx - Past Medical History Hx Hypertension: Yes Hx CVA: Yes (x4, 6TIAs) Hx Heart Attack/AMI: Yes Hx Congestive Heart Failure: Yes Hx Diabetes: Yes Hx Liver Disease: No Hx Renal Disease: Yes (dialysis 2015, , and Sat) Hx Sickle Cell Disease: No Hx Arthritis: Yes Hx Headaches / Migraines: Yes Hx Seizures: Yes Hx Asthma: Yes Hx COPD: Yes Hx HIV: No - Surgical History Hx Coronary Stent: Yes Hx Pacemaker: No Hx Internal Defibrillator: No Hx Breast Surgery: Yes (breast reduction 1979) Additional Surgical History: breast reduction 1979, av fistula left arm - Social History Smoking Status: Former Smoker - Medications Home Medications: Home Medications Medication Instructions Recorded Confirmed Last Taken Type Fluticasone [Flonase] 1 spray NS QDAY PRN 12/01/19 03/06/21 03/04/21 History Gabapentin [Neurontin] 800 mg PO TID #90 tab 02/02/20 05/03/21 05/02/21 21:55 Rx Mirtazapine [Remeron 15mg TAB] 15 mg PO QHS #30 tab 02/02/20 05/03/21 05/02/21 21:55 Rx Acetaminophen [Acetaminophen TAB] 650 mg PO Q4H PRN tablet 04/21/20 05/03/21 05/03/21 00:45 Rx Aspirin EC [Halfprin EC] 81 mg PO QDAY #30 tablet 04/21/20 03/06/21 03/04/21 Rx AtorvaSTATin [Lipitor] 40 mg PO QHS #30 tablet 04/21/20 03/06/21 05/02/21 22:55 Rx Calcium Acetate [Phoslo] 2,001 mg PO TIDWM #30 capsule 04/21/20 03/06/21 03/04/21 Rx Clopidogrel [Plavix] 75 mg PO QDAY #30 tab 04/21/20 03/06/21 03/04/21 Rx Epoetin Hiro 20,000 Unit [Procrit] 20,000 unit IV GREY vial 04/21/20 03/06/21 03/04/21 Rx Loperamide [Imodium] 2 mg PO Q4HR PRN #24 capsule 04/21/20 05/03/21 05/03/21 03:00 Rx Losartan [Cozaar] 50 mg PO QDAY #30 tablet 04/21/20 03/06/21 03/04/21 Rx Metoprolol [Lopressor TAB] 12.5 mg PO BID #60 tablet 04/21/20 05/03/21 05/01/21 21:00 Rx Torsemide [Demadex] 20 mg PO QDAY tablet 04/21/20 03/06/21 03/04/21 Rx calcitrioL [Rocaltrol] 1 mcg PO QDAY #30 cap 04/21/20 03/06/21 03/04/21 Rx hydrALAZINE [Apresoline TAB] 50 mg PO BID #120 tablet 04/21/20 05/03/21 05/02/21 09:00 Rx levETIRAcetam [Keppra TAB] 500 mg PO BID #60 tablet 04/21/20 05/03/21 05/02/21 21:55 Rx Albuterol Sulfate [Proair 90 mcg IH Q6HR PRN 05/17/20 03/06/21 03/04/21 History Digihaler] Ondansetron [Zofran ODT TAB] 8 mg PO Q8HR PRN #10 05/18/20 05/03/21 05/02/21 08:55 Rx Calcium Carbonate [Tums 500MG CHEW] 750 mg PO QDAY 03/01/21 03/06/21 03/04/21 History ED Physical Exam - General Limitations: No Limitations General appearance: alert, in no apparent distress - Head Head exam: Present: atraumatic, normocephalic - Eye Eye exam: Present: normal appearance, EOMI - ENT ENT exam: Present: mucous membranes moist - Neck Neck exam: Present: normal inspection - Respiratory Respiratory exam: Present: normal lung sounds bilaterally. Absent: respiratory distress - Cardiovascular Cardiovascular Exam: Present: regular rate, normal rhythm - GI/Abdominal GI/Abdominal exam: Present: soft. Absent: distended, tenderness - Extremities Exam Extremities exam: Present: normal inspection - Neurological Exam Neurological exam: Present: alert, oriented X3 - Psychiatric Psychiatric exam: Present: normal affect, normal mood - Skin Skin exam: Present: warm, dry, intact, normal color ED Course Vital Signs 05/02/21 05/02/21 05/02/21 05:40 05:45 06:01 Temperature Pulse Rate 92 H 89 88 Respiratory 15 20 19 Rate Blood Pressure 130/64 127/57 Blood Pressure [Left] O2 Sat by Pulse 100 100 100 Oximetry 05/02/21 05/02/21 05/02/21 06:15 06:31 06:45 Temperature Pulse Rate 90 87 88 Respiratory 13 19 17 Rate Blood Pressure 123/66 134/69 129/60 Blood Pressure [Left] O2 Sat by Pulse 100 100 100 Oximetry 05/02/21 05/02/21 05/02/21 07:01 07:15 07:31 Temperature Pulse Rate 86 89 89 Respiratory 18 18 19 Rate Blood Pressure 133/58 133/53 131/63 Blood Pressure [Left] O2 Sat by Pulse 100 100 100 Oximetry 05/02/21 05/02/21 05/02/21 07:45 08:01 08:15 Temperature Pulse Rate 92 H Respiratory 22 22 24 Rate Blood Pressure 123/58 109/67 95/71 Blood Pressure [Left] O2 Sat by Pulse 98 100 94 Oximetry 05/02/21 05/02/21 05/02/21 08:31 08:45 09:01 Temperature Pulse Rate Respiratory 19 16 18 Rate Blood Pressure 116/71 129/59 110/58 Blood Pressure [Left] O2 Sat by Pulse 100 100 100 Oximetry 05/02/21 05/02/21 05/02/21 09:14 09:15 09:31 Temperature 98.5 F Pulse Rate 89 Respiratory 16 22 17 Rate Blood Pressure 122/65 120/66 Blood Pressure 122/85 [Left] O2 Sat by Pulse 100 100 100 Oximetry 05/02/21 05/02/21 05/02/21 09:45 10:01 10:08 Temperature Pulse Rate Respiratory 19 Rate Blood Pressure 117/61 124/68 Blood Pressure [Left] O2 Sat by Pulse 100 100 96 Oximetry 05/02/21 05/02/21 05/02/21 10:15 10:31 10:45 Temperature Pulse Rate Respiratory Rate Blood Pressure 121/71 115/68 126/63 Blood Pressure [Left] O2 Sat by Pulse 100 94 88 Oximetry 05/02/21 05/02/21 05/02/21 13:17 14:11 14:20 Temperature Pulse Rate 82 Respiratory 16 Rate Blood Pressure 113/53 110/48 Blood Pressure 154/79 [Left] O2 Sat by Pulse 97 85 89 Oximetry 05/02/21 05/02/21 05/02/21 14:31 14:40 14:50 Temperature Pulse Rate Respiratory Rate Blood Pressure 110/55 110/48 116/63 Blood Pressure [Left] O2 Sat by Pulse 86 84 87 Oximetry 05/02/21 05/02/21 05/02/21 15:01 15:11 15:20 Temperature Pulse Rate Respiratory Rate Blood Pressure 101/54 97/52 Blood Pressure [Left] O2 Sat by Pulse 83 L 83 L 87 Oximetry 05/02/21 05/02/21 05/02/21 15:31 15:41 15:51 Temperature Pulse Rate Respiratory Rate Blood Pressure 97/52 108/55 96/53 Blood Pressure [Left] O2 Sat by Pulse 88 86 88 Oximetry 05/02/21 05/02/21 05/02/21 15:53 16:01 16:11 Temperature Pulse Rate 90 Respiratory 16 Rate Blood Pressure 96/53 107/57 Blood Pressure 103/55 [Left] O2 Sat by Pulse 96 100 100 Oximetry 05/02/21 05/02/21 05/02/21 16:20 16:31 16:41 Temperature Pulse Rate Respiratory Rate Blood Pressure 106/62 106/62 107/58 Blood Pressure [Left] O2 Sat by Pulse 100 100 100 Oximetry 05/02/21 05/02/21 05/02/21 16:50 17:01 17:11 Temperature Pulse Rate Respiratory Rate Blood Pressure 120/60 120/60 113/62 Blood Pressure [Left] O2 Sat by Pulse 100 100 100 Oximetry 05/02/21 05/02/21 05/02/21 17:21 17:31 17:41 Temperature Pulse Rate Respiratory Rate Blood Pressure 109/56 109/56 113/62 Blood Pressure [Left] O2 Sat by Pulse 83 L 97 97 Oximetry 05/02/21 05/02/21 05/02/21 17:50 18:01 18:11 Temperature Pulse Rate Respiratory Rate Blood Pressure 131/53 131/53 134/62 Blood Pressure [Left] O2 Sat by Pulse 90 100 100 Oximetry 05/02/21 05/02/21 05/02/21 18:20 18:28 18:31 Temperature Pulse Rate 80 Respiratory 16 Rate Blood Pressure 113/58 113/58 Blood Pressure 113/58 [Left] O2 Sat by Pulse 99 100 100 Oximetry 05/02/21 05/02/21 05/02/21 18:41 18:50 19:01 Temperature Pulse Rate Respiratory Rate Blood Pressure 133/68 119/65 119/65 Blood Pressure [Left] O2 Sat by Pulse 100 99 100 Oximetry 05/02/21 05/02/21 05/02/21 19:11 19:20 19:31 Temperature Pulse Rate Respiratory Rate Blood Pressure 114/61 123/66 123/66 Blood Pressure [Left] O2 Sat by Pulse 100 97 100 Oximetry 05/02/21 05/02/21 05/02/21 19:41 19:50 20:01 Temperature Pulse Rate Respiratory Rate Blood Pressure 114/68 129/72 129/72 Blood Pressure [Left] O2 Sat by Pulse 97 96 91 Oximetry 05/02/21 05/02/21 05/02/21 20:11 20:20 20:31 Temperature Pulse Rate Respiratory Rate Blood Pressure 127/67 134/69 134/69 Blood Pressure [Left] O2 Sat by Pulse 91 89 89 Oximetry 05/02/21 05/02/21 05/02/21 20:40 20:50 21:00 Temperature Pulse Rate Respiratory Rate Blood Pressure 134/69 128/62 128/62 Blood Pressure [Left] O2 Sat by Pulse 87 91 93 Oximetry 05/02/21 05/02/21 05/02/21 21:11 21:20 21:31 Temperature Pulse Rate Respiratory Rate Blood Pressure 114/63 114/63 114/63 Blood Pressure [Left] O2 Sat by Pulse 99 96 Oximetry 05/02/21 21:41 Temperature Pulse Rate Respiratory Rate Blood Pressure 117/69 Blood Pressure [Left] O2 Sat by Pulse 99 Oximetry - Reevaluation(s) Reevaluation #1: 05/02/21 07:[address] Craig. Patient to be admitted to Dr. Rocha, hospitalist. ED Recheck MDM - Medical Decision Making 61-year-old female presents to ED with low hemoglobin. Hemoglobin found to be 6.7. Patient has history of anemia of chronic disease. Currently on dialysis. Potassium of 5.1. Patient is in no respiratory distress, O2 sats are normal. Patient has no other complaints. Nephrology has been contacted. Patient will be admitted to hospitalist for admission. Critical care attestation.: If time is entered above; I have spent that time in minutes in the direct care of this critically ill patient, excluding procedure time. ED Disposition Clinical Impression: Anemia, ESRD needing dialysis Disposition: ADMITTED INPATIENT Is pt being admited?: Yes Condition: Stable Time of Disposition: 07:35
[2021-05-02] MEDS ORDERED: SODIUM CHLORIDE 0.9% 500 ML 500 ML IV ONE (07:33)
--- NOTE | 2021-05-02 09:59 | History and Physical Report ---
History of Present Illness Date of examination: 05/02/21 Date of admission: 05/02/21 07:35 Chief complaint: Low hemoglobin History of present illness: Patient is 61 years old female end-stage renal disease on hemodialysis and last dialyzed 3 days ago was brought to the emergency room via EMS for anemia. Patient states that she got a call from HD center that her h/h is low and she needs to go to hosptal for blood transfusion. Patient is alert, in no acute distress. CBC, BMP, PT and PTT and type and screen has been ordered in the ER and called for admission. Patient denies any SOB or chest pain. She does have h/o transfusion in the past. - Past Medical History Hypertension, CVA (x4, 6TIAs), [place], DM type 2, ESRD, asthma, COPD - Surgical History Hx Coronary Stent: Yes Hx Pacemaker: No Hx Internal Defibrillator: No Hx Breast Surgery: Yes (breast reduction 1979) Additional Surgical History: breast reduction 1979, av fistula left arm -Family history: HTN, DM, stroke - Social History Smoking Status: Former Smoker Review of Systems Constitutional: no fever, no chills Ears, nose, mouth and throat: no nasal congestion, no nasal discharge Cardiovascular: no chest pain, no orthopnea Respiratory: no cough, no shortness of breath Gastrointestinal: no nausea, no vomiting Musculoskeletal: no muscle weakness, no muscle cramps Integumentary: no rash, no pruritis Neurological: no weakness, no parathesias Psychiatric: no paranoia Endocrine: no cold intolerance, no heat intolerance Hematologic/Lymphatic: no easy bruising, no easy bleeding Past History Past Medical History: ESRD, hypertension Past Surgical History: denies: No surgical history Social history: lives with family Family history: hypertension Medications and Allergies Allergies Allergy/AdvReac Type Severity Reaction Status Date / Time No Known Allergies Allergy Verified 03/04/21 07:25 Home Medications Medication Instructions Recorded Confirmed Last Taken Type Fluticasone [Flonase] 1 spray NS QDAY PRN 12/01/19 07/24/21 03/04/21 History Gabapentin [Neurontin] 800 mg PO TID #90 tab 02/02/20 07/24/21 05/02/21 21:55 Rx Mirtazapine [Remeron 15mg TAB] 15 mg PO QHS #30 tab 02/02/20 07/24/21 05/02/21 21:55 Rx Acetaminophen [Acetaminophen TAB] 650 mg PO Q4H PRN tablet 04/21/20 07/24/21 05/03/21 00:45 Rx AtorvaSTATin [Lipitor] 40 mg PO QHS #30 tablet 04/21/20 07/24/21 05/02/21 22:55 Rx Calcium Acetate [Phoslo] 2,001 mg PO TIDWM #30 capsule 04/21/20 07/24/21 03/04/21 Rx Epoetin Hiro 20,000 Unit [Procrit] 20,000 unit IV GREY vial 04/21/20 07/24/21 03/04/21 Rx Loperamide [Imodium] 2 mg PO Q4HR PRN #24 capsule 04/21/20 07/24/21 05/03/21 03:00 Rx Losartan [Cozaar] 50 mg PO QDAY #30 tablet 04/21/20 07/24/21 03/04/21 Rx Metoprolol [Lopressor TAB] 12.5 mg PO BID #60 tablet 04/21/20 07/24/21 05/01/21 21:00 Rx Torsemide [Demadex] 20 mg PO QDAY tablet 04/21/20 07/24/21 03/04/21 Rx calcitrioL [Rocaltrol] 1 mcg PO QDAY #30 cap 04/21/20 07/24/21 03/04/21 Rx hydrALAZINE [Apresoline TAB] 50 mg PO BID #120 tablet 04/21/20 07/24/21 05/02/21 09:00 Rx levETIRAcetam [Keppra TAB] 500 mg PO BID #60 tablet 04/21/20 07/24/21 05/02/21 21:55 Rx Albuterol Sulfate [Proair 90 mcg IH Q6HR PRN 05/17/20 07/24/21 03/04/21 History Digihaler] Ondansetron [Zofran ODT TAB] 8 mg PO Q8HR PRN #10 05/18/20 07/24/21 05/02/21 08:55 Rx Calcium Carbonate [Tums 500MG CHEW] 750 mg PO QDAY 03/01/21 07/24/21 03/04/21 History Epoetin Hiro-Epbx 10,000 Unit 20,000 unit SUB-Q GREY vial 07/26/21 Unknown Rx [Retacrit] Fe Fumarate/FA/Mv, Min Comb#15 1 each PO QDAY capsule 07/26/21 Unknown Rx [Hemocyte Plus] Exam - Physical Exam Narrative exam: GENERAL: well-developed and well-nourished elderly -[place] female lying on bed appeared to be in no discomfort. HEENT: Normocephalic. Atraumatic. No conjunctival congestion or icterus. Patient has moist mucous membranes. NECK: Supple. Trachea midline. CHEST/LUNGS: Clear to auscultated bilaterally, breathing nonlabored. No wheezes crackles or rhonchi. HEART/CARDIOVASCULAR: Regular in rate and rhythm. S1 and S2 positive. ABDOMEN: Abdomen is soft, nontender. Patient has normal bowel sounds. SKIN: There is no rash. Warm and dry. NEURO: No focal motor deficit. Follows command. MUSCULOSKELETAL: No joint effusion or tenderness. EXTRIMITY: No edema, no cyanosis or clubbing. PSYCH: Cooperative. - Constitutional Vitals: Temp Pulse Resp BP Pulse Ox 98.5 F 89 16 122/85 100 05/02/21 09:14 05/02/21 09:14 05/02/21 09:14 05/02/21 09:14 05/02/21 09:14 Results - Labs CBC & Chem 7: 05/03/21 14:34 05/03/21 14:34 Labs: Abnormal lab results 05/02/21 05/02/21 05/02/21 Range/Units 05:16 05:16 05:16 WBC 3.4 L (4.5-11.0) K/mm3 RBC 2.45 L (3.65-5.03) M/mm3 Hgb 6.7 L (10.1-14.3) gm/dl Hct 21.8 L (30.3-42.9) % MCH 27 L (28-32) pg RDW 20.4 H (13.2-15.2) % Plt Count 101 L (140-440) K/mm3 PT 16.6 H (12.2-14.9) Sec. INR 1.29 H (0.87-1.13) Potassium 5.1 H (3.6-5.0) mmol/L BUN 42 H (7-17) mg/dL Creatinine 6.6 H (0.6-1.2) mg/dL Crossmatch 05/02/21 Range/Units 05:16 WBC (4.5-11.0) K/mm3 RBC (3.65-5.03) M/mm3 Hgb (10.1-14.3) gm/dl Hct (30.3-42.9) % MCH (28-32) pg RDW (13.2-15.2) % Plt Count (140-440) K/mm3 PT (12.2-14.9) Sec. INR (0.87-1.13) Potassium (3.6-5.0) mmol/L BUN (7-17) mg/dL Creatinine (0.6-1.2) mg/dL Crossmatch See Detail Assessment and Plan End-stage renal disease on dialysis -consult nephrology for HD, follow BMP, avoid nephrotoxins Anemia likely due to chronic disease -Need to rule out underlying GI bleed -Ordered for 1 unit packed RBC transfusion Other chronic medical issues hypertension, resume home meds, monitor BP Diabetes mellitus type 2, consistent carb diet-SSI History of CVA, and CAD, resume home meds Asthma/COPD: Nebulizer treatment as needed DVT prophylaxis, heparin
[2021-05-02] MEDS ORDERED: SODIUM CHLORIDE 0.9% 1000 ML 1,000 ML ONE (10:55)
[2021-05-02] MEDS ORDERED: SODIUM CHLORIDE 0.9% 100 ML IV PRN (12:00)
[2021-05-02 12:22] LABS: Anisocytosis 1+; Hypochromasia 1+; Platelet Estimate Consistent w Auto; Total Cells Counted 100
--- NOTE | 2021-05-02 15:55 | Emergency Department Report ---
Blank Doc - Documentation Documentation: I did not participate in the care of this patient.
[2021-05-02] MEDS ORDERED: FLUTICASONE PROPIONATE NASAL SPRAY 16 GM NS PRN (16:20)
[2021-05-02] MEDS ORDERED: LOPERAMIDE 2 MG CAP PO PRN (16:20)
[2021-05-02] MEDS ORDERED: ONDANSETRON 8 MG ODT TAB PO PRN (16:20)
[2021-05-02] MEDS ORDERED: ACETAMINOPHEN 325 MG TAB PO PRN (16:20)
[2021-05-02] MEDS ORDERED: ALBUTEROL 2.5 MG/3 ML NEBU IH PRN (16:20)
[2021-05-02] MEDS ORDERED: EPOETIN ALFA-EPBX 20,000 UNIT/1 ML VIAL IV SCH (16:30)
--- NOTE | 2021-05-02 16:41 | Consultation ---
History of Present Illness - Reason for Consult Consult date: 05/02/21 end stage renal disease - History of Present Illness This is a 61-year-old woman with end-stage renal disease on hemodialysis TTS who was sent from the dialysis unit to the emergency department due to acute blood loss anemia. Patient was admitted due to hemoglobin less than 7. Nephrology was consulted for ESRD management. Patient denies chest pain, shortness of breath, presyncope, syncope, hematemesis, hematochezia and melena. Medications and Allergies Allergies Allergy/AdvReac Type Severity Reaction Status Date / Time No Known Allergies Allergy Verified 03/04/21 07:25 Home Medications Medication Instructions Recorded Confirmed Last Taken Type Fluticasone [Flonase] 1 spray NS QDAY PRN 12/01/19 03/06/21 03/04/21 History Gabapentin [Neurontin] 800 mg PO TID #90 tab 02/02/20 03/06/21 03/04/21 Rx Mirtazapine [Remeron 15mg TAB] 15 mg PO QHS #30 tab 02/02/20 03/06/21 03/04/21 Rx Acetaminophen [Acetaminophen TAB] 650 mg PO Q4H PRN tablet 04/21/20 03/06/21 03/04/21 Rx Aspirin EC [Halfprin EC] 81 mg PO QDAY #30 tablet 04/21/20 03/06/21 03/04/21 Rx AtorvaSTATin [Lipitor] 40 mg PO QHS #30 tablet 04/21/20 03/06/21 03/04/21 Rx Calcium Acetate [Phoslo] 2,001 mg PO TIDWM #30 capsule 04/21/20 03/06/21 03/04/21 Rx Clopidogrel [Plavix] 75 mg PO QDAY #30 tab 04/21/20 03/06/21 03/04/21 Rx Epoetin Hiro 20,000 Unit [Procrit] 20,000 unit IV GREY vial 04/21/20 03/06/21 03/04/21 Rx Loperamide [Imodium] 2 mg PO Q4HR PRN #24 capsule 04/21/20 03/06/21 03/04/21 Rx Losartan [Cozaar] 50 mg PO QDAY #30 tablet 04/21/20 03/06/21 03/04/21 Rx Metoprolol [Lopressor TAB] 12.5 mg PO BID #60 tablet 04/21/20 03/06/21 03/04/21 Rx Torsemide [Demadex] 20 mg PO QDAY tablet 04/21/20 03/06/21 03/04/21 Rx calcitrioL [Rocaltrol] 1 mcg PO QDAY #30 cap 04/21/20 03/06/21 03/04/21 Rx hydrALAZINE [Apresoline TAB] 50 mg PO BID #120 tablet 04/21/20 03/06/21 03/04/21 Rx levETIRAcetam [Keppra TAB] 500 mg PO BID #60 tablet 04/21/20 03/06/21 03/04/21 Rx Albuterol Sulfate [Proair 90 mcg IH Q6HR PRN 05/17/20 03/06/21 03/04/21 History Digihaler] Azithromycin [Zithromax Z-TIMOTHY] 250 mg PO DAILY #6 tab 05/18/20 03/06/21 03/04/21 Rx Ondansetron [Zofran ODT TAB] 8 mg PO Q8HR PRN #10 05/18/20 03/06/21 03/04/21 Rx Calcium Carbonate [Tums 500MG CHEW] 750 mg PO QDAY 03/01/21 03/06/21 03/04/21 History Active Meds: Active Medications Acetaminophen (Acetaminophen 325 Mg Tab) 650 mg PO Q4H PRN PRN Reason: Pain MILD(1-3)/Fever >100.5/MCDANIEL Albuterol (Albuterol 2.5 Mg/3 Ml Nebu) 2.5 mg IH Q6HR PRN PRN Reason: Congestion Aspirin (Aspirin Ec 81 Mg Tab) 81 mg PO QDAY LENCHO Atorvastatin Calcium (Atorvastatin 40 Mg Tab) 40 mg PO QHS LENCHO Calcitriol (Calcitriol 0.5 Mcg Cap) 1 mcg PO QDAY LENCHO Calcium Acetate (Calcium Acetate 667 Mg Cap) 2,001 mg PO TIDWM LENCHO Calcium Carbonate/Glycine (Calcium Carbonate 500 Mg Tab Chew) 750 mg PO QDAY LENCHO Clopidogrel Bisulfate (Clopidogrel 75 Mg Tab) 75 mg PO QDAY LENCHO Fluticasone Propionate (Fluticasone Propionate Nasal [place] 16 Gm) 50 mcg NS QDAY PRN PRN Reason: Nasal Congestion Gabapentin (Gabapentin 400 Mg Cap) 800 mg PO TID LENCHO Hydralazine HCl (Hydralazine 25 Mg Tab) 50 mg PO BID [facility] Sodium Chloride (Nacl 0.9%) 100 mls @ 999 mls/hr IV GREY PRN PRN Reason: Hypotension Levetiracetam (Levetiracetam 500 Mg Tab) 500 mg PO BID [facility] Loperamide HCl (Loperamide 2 Mg Cap) 2 mg PO Q4HR PRN PRN Reason: Diarrhea Losartan Potassium (Losartan 50 Mg Tab) 50 mg PO QDAY [facility] Metoprolol Tartrate (Metoprolol Tartrate 25 Mg Tab) 12.5 mg PO BID [facility] Mirtazapine (Mirtazapine 15 Mg Tab) 15 mg PO QHS [facility] Ondansetron HCl (Ondansetron 8 Mg Odt Tab) 8 mg PO Q8HR PRN PRN Reason: Nausea Torsemide (Torsemide 10 Mg Tab) 20 mg PO QDAY [facility] Review of Systems Constitutional: no fever, no chills Ears, nose, mouth and throat: no nasal congestion, no nasal discharge Cardiovascular: no chest pain, no orthopnea Respiratory: no cough, no shortness of breath Gastrointestinal: no nausea, no vomiting Musculoskeletal: no muscle weakness, no muscle cramps Integumentary: no rash, no pruritis Neurological: no weakness, no parathesias Psychiatric: no paranoia Endocrine: no cold intolerance, no heat intolerance Hematologic/Lymphatic: no easy bruising, no easy bleeding Exam - Vital Signs Vital signs: Vital Signs Pulse Resp Pulse Ox 92 H 15 100 05/02/21 05:40 05/02/21 05:40 05/02/21 05:40 - Physical Exam Narrative exam: General: No acute distress HEENT: Oral mucosa moist Neck: Supple, no JVD Chest: Clear to auscultation bilaterally Heart: RRR, S1 and S2, no pericardial rub Abdomen: Soft, nontender, no renal bruit Extremity: No peripheral cyanosis, edema Neurological: Alert, awake, no asterixis Dermatology: No skin rash Psych: No agitation Musculoskeletal: No joint effusion Results - Lab Results 05/02/21 05:16 05/02/21 05:16 Most recent lab results Calcium 9.2 mg/dL (8.4-10.2) 05/02/21 05:16 Assessment and Plan Assessment - End-stage renal disease on hemodialysis - Hypertension - Anemia of ESRD - Hyperparathyroidism - Hyperphosphatemia Recommendations - HD today, post transfusion - Transfuse for hgb < 7 - Continue home antihypertensives - Hold antihypertensives on hemodialysis days for systolics less than 160 - Epogen with HD - Continue phosphorus binders - Continue calcitriol - ESRD diet with 1.4 g/kg per day protein - Renally dose medication for creatinine clearance less than 15 cc/min - Consent obtained for HD
[2021-05-02 16:50] LABS: Hepatitis C Virus Antibody Non-Reactive (NonReactive)
[2021-05-02 17:06] LABS: Hepatitis B Surface Antigen Nonreactive (Negative)
[2021-05-02] MEDS: ASPIRIN EC 81 MG TAB PO SCH (17:48)
[2021-05-02] MEDS ORDERED: MIRTAZAPINE 15 MG TAB PO SCH (22:00)
[2021-05-02] MEDS: GABAPENTIN 400 MG CAP PO SCH (22:42)
[2021-05-02] MEDS: levETIRAcetam 500 MG TAB PO SCH (22:42)
[2021-05-03] MEDS: METOPROLOL TARTRATE 25 MG TAB PO SCH ×2 (03:00→13:21)
[2021-05-03] MEDS: hydrALAZINE 25 MG TAB PO SCH ×2 (03:00→13:20)
[2021-05-03] MEDS ORDERED: SODIUM CHLORIDE 0.9% 500 ML IVPB IV ONE (05:00)
[2021-05-03] MEDS: CALCIUM ACETATE 667 MG CAP PO SCH ×4 (09:32→18:22)
[2021-05-03] MEDS: GABAPENTIN 400 MG CAP PO SCH ×2 (09:34→15:13)
[2021-05-03] MEDS ORDERED: CLOPIDOGREL 75 MG TAB PO SCH (10:00)
[2021-05-03] MEDS ORDERED: CALCITRIOL 0.5 MCG CAP PO SCH (10:00)
[2021-05-03] MEDS ORDERED: LOSARTAN 50 MG TAB PO SCH (10:00)
[2021-05-03] MEDS ORDERED: CALCIUM CARBONATE 500 MG TAB CHEW PO SCH (10:00)
[2021-05-03] MEDS ORDERED: TORSEMIDE 10 MG TAB PO SCH (10:00)
--- NOTE | 2021-05-03 12:19 | Progress Note ---
Assessment and Plan Assessment - End-stage renal disease on hemodialysis - Hypertension - Anemia of ESRD - Hyperparathyroidism - Hyperphosphatemia Recommendations - Continue HD MWF - Transfuse for hgb < 7 - Continue home antihypertensives - Hold antihypertensives on hemodialysis days for systolics less than 160 - Epogen with HD - Continue phosphorus binders - Continue calcitriol - ESRD diet with 1.4 g/kg per day protein - Renally dose medication for creatinine clearance less than 15 cc/min - Consent obtained for HD Subjective Date of service: 05/03/21 Principal diagnosis: Anemia Interval history: Patient was seen for her renal issues Nursing, interdisciplinary and consult notes were reviewed Vitals, input and output, medications and labs were reviewed Seen on HD today Objective - Exam Narrative Exam: General: No acute distress HEENT: Oral mucosa moist Neck: Supple, no JVD Chest: Clear to auscultation bilaterally Heart: RRR, S1 and S2, no pericardial rub Abdomen: Soft, nontender, no renal bruit Extremity: No peripheral cyanosis, edema Neurological: Alert, awake, no asterixis Dermatology: No skin rash Psych: No agitation Musculoskeletal: No joint effusion - Vital Signs Vital signs: Vital Signs - 12hr 05/03/21 05/03/21 05/03/21 01:10 02:10 04:32 Temperature 98.5 F Pulse Rate 85 Respiratory 17 17 18 Rate Blood Pressure 135/64 O2 Sat by Pulse 98 Oximetry 05/03/21 05/03/21 05/03/21 05:46 06:01 06:31 Temperature 98 F 98 F 98.1 F Pulse Rate 82 82 83 Respiratory 19 18 18 Rate Blood Pressure 134/64 134/68 136/69 O2 Sat by Pulse 100 100 Oximetry 05/03/21 05/03/21 05/03/21 07:01 09:04 09:25 Temperature 97.6 F 97.7 F 97.3 F L Pulse Rate 88 87 89 Respiratory 19 18 16 Rate Blood Pressure 139/68 155/79 143/76 O2 Sat by Pulse 100 Oximetry - Lab 05/03/21 14:34 05/03/21 14:34 Most recent lab results Calcium 9.2 mg/dL (8.4-10.2) 05/02/21 05:16 Medications & Allergies - Medications Allergies/Adverse Reactions: Allergies No Known Allergies Allergy (Verified 03/04/21 07:25) Home Medications: Home Medications Medication Instructions Recorded Confirmed Last Taken Type Fluticasone [Flonase] 1 spray NS QDAY PRN 12/01/19 03/06/21 03/04/21 History Gabapentin [Neurontin] 800 mg PO TID #90 tab 02/02/20 05/03/21 05/02/21 21:55 Rx Mirtazapine [Remeron 15mg TAB] 15 mg PO QHS #30 tab 02/02/20 05/03/21 05/02/21 21:55 Rx Acetaminophen [Acetaminophen TAB] 650 mg PO Q4H PRN tablet 04/21/20 05/03/21 05/03/21 00:45 Rx Aspirin EC [Halfprin EC] 81 mg PO QDAY #30 tablet 04/21/20 03/06/21 03/04/21 Rx AtorvaSTATin [Lipitor] 40 mg PO QHS #30 tablet 04/21/20 03/06/21 05/02/21 22:55 Rx Calcium Acetate [Phoslo] 2,001 mg PO TIDWM #30 capsule 04/21/20 03/06/21 03/04/21 Rx Clopidogrel [Plavix] 75 mg PO QDAY #30 tab 04/21/20 03/06/21 03/04/21 Rx Epoetin Hrio 20,000 Unit [Procrit] 20,000 unit IV GREY vial 04/21/20 03/06/21 03/04/21 Rx Loperamide [Imodium] 2 mg PO Q4HR PRN #24 capsule 04/21/20 05/03/21 05/03/21 03:00 Rx Losartan [Cozaar] 50 mg PO QDAY #30 tablet 04/21/20 03/06/21 03/04/21 Rx Metoprolol [Lopressor TAB] 12.5 mg PO BID #60 tablet 04/21/20 05/03/21 05/01/21 21:00 Rx Torsemide [Demadex] 20 mg PO QDAY tablet 04/21/20 03/06/21 03/04/21 Rx calcitrioL [Rocaltrol] 1 mcg PO QDAY #30 cap 04/21/20 03/06/21 03/04/21 Rx hydrALAZINE [Apresoline TAB] 50 mg PO BID #120 tablet 04/21/20 05/03/21 05/02/21 09:00 Rx levETIRAcetam [Keppra TAB] 500 mg PO BID #60 tablet 04/21/20 05/03/21 05/02/21 21:55 Rx Albuterol Sulfate [Proair 90 mcg IH Q6HR PRN 05/17/20 03/06/21 03/04/21 History Digihaler] Ondansetron [Zofran ODT TAB] 8 mg PO Q8HR PRN #10 05/18/20 05/03/21 05/02/21 08:55 Rx Calcium Carbonate [Tums 500MG CHEW] 750 mg PO QDAY 03/01/21 03/06/21 03/04/21 History Active Medications: Generic Name Dose Route Start Last Admin Trade Name Freq PRN Reason Stop Dose Admin Acetaminophen 650 mg 05/02/21 16:20 05/03/21 01:10 Acetaminophen 325 Mg Tab PO 650 mg Q4H PRN Administration Pain MILD(1-3)/Fever >100.5/MCDANIEL Albuterol 2.5 mg 05/02/21 16:20 Albuterol 2.5 Mg/3 Ml Nebu IH Q6HR PRN Congestion Aspirin 81 mg 05/02/21 10:00 05/02/21 17:48 Aspirin Ec 81 Mg Tab PO 81 mg QDAY LENCHO Administration Atorvastatin Calcium 40 mg 05/02/21 22:00 05/02/21 22:50 Atorvastatin 40 Mg Tab PO 40 mg QHS LENCHO Administration Calcitriol 1 mcg 05/03/21 10:00 Calcitriol 0.5 Mcg Cap PO QDAY LENCHO Calcium Acetate 2,001 mg 05/02/21 17:00 05/03/21 09:32 Calcium Acetate 667 Mg Cap PO 2,001 mg TIDWM LENCHO Administration Calcium Carbonate/Glycine 750 mg 05/03/21 10:00 Calcium Carbonate 500 Mg Tab Chew PO QDAY LENCHO Clopidogrel Bisulfate 75 mg 05/03/21 10:00 Clopidogrel 75 Mg Tab PO QDAY LENCHO Fluticasone Propionate 50 mcg 05/02/21 16:20 Fluticasone Propionate Nasal [place] 16 Gm NS QDAY PRN Nasal Congestion Gabapentin 800 mg 05/02/21 20:00 05/03/21 09:34 Gabapentin 400 Mg Cap PO 800 mg TID LENCHO Administration Hydralazine HCl 50 mg 05/02/21 22:00 05/03/21 03:00 Hydralazine 25 Mg Tab PO Not Given BID LENCHO Sodium Chloride 100 mls @ 999 mls/hr 05/02/21 12:00 Nacl 0.9% IV GREY PRN Hypotension Levetiracetam 500 mg 05/02/21 22:00 05/02/21 22:42 Levetiracetam 500 Mg Tab PO 500 mg BID LENCHO Administration Loperamide HCl 2 mg 05/02/21 16:20 05/03/21 03:18 Loperamide 2 Mg Cap PO 2 mg Q4HR PRN Administration Diarrhea Losartan Potassium 50 mg 05/03/21 10:00 Losartan 50 Mg Tab PO QDAY LENCHO Metoprolol Tartrate 12.5 mg 05/02/21 22:00 05/03/21 03:00 Metoprolol Tartrate 25 Mg Tab PO Not Given BID LENCHO Mirtazapine 15 mg 05/02/21 22:00 05/02/21 22:42 Mirtazapine 15 Mg Tab PO 15 mg QHS LENCHO Administration Ondansetron HCl 8 mg 05/02/21 16:20 Ondansetron 8 Mg Odt Tab PO Q8HR PRN Nausea Torsemide 20 mg 05/03/21 10:00 Torsemide 10 Mg Tab PO QDAY LENCHO
[2021-05-03] MEDS: ASPIRIN EC 81 MG TAB PO SCH (13:20)
[2021-05-03] MEDS: levETIRAcetam 500 MG TAB PO SCH (13:20)
--- NOTE | 2021-05-03 13:27 | Discharge Summary ---
Providers - Providers Date of Admission: 05/02/21 07:35 Date of discharge: 05/03/21 Attending physician: DIYA LO 05/02/21 07:32 Consult to Physician [CONS] Stat Comment: Consulting Provider: ERVIN MASSEY Physician Instructions: Reason For Exam: esrd Primary care physician: REGGIE JEFFERSON MD Hospitalization Condition: Stable Hospital course: Patient is 61 years old female end-stage renal disease on hemodialysis was brought to the emergency room via EMS for anemia. Patient states that she got a call from HD center that her h/h is low and she needs to go to hosptal for blood transfusion. CBC, BMP, PT and PTT and type and screen has been ordered in the ER and called for admission. Nephrology was consulted and she was dialyzed and transfused 1 unit PRBC. Patient was hemodynamically stable, she was then discharged home with outpt f/u. Disposition: 01 HOME / SELF CARE / HOMELESS Final Discharge Diagnosis (Prints w/discharge instructions): --Anemia due to chronic disease, status post transfusion. --End-stage renal disease. --Hyperkalemia due to end-stage renal disease. --Pancytopenia, chronic. --h/o CVA, CAD, COPD/asthma. --HTN, DM type2 Time spent for discharge: 34 minutes Core Measure Documentation - Palliative Care Palliative Care/ Comfort Measures: Not Applicable - Core Measures Any of the following diagnoses?: history only Exam - Physical Exam Narrative exam: GENERAL: well-developed and well-nourished elderly -[place] female lying on bed appeared to be in no discomfort. HEENT: Normocephalic. Atraumatic. No conjunctival congestion or icterus. Patient has moist mucous membranes. NECK: Supple. Trachea midline. CHEST/LUNGS: Clear to auscultated bilaterally, breathing nonlabored. No wheezes crackles or rhonchi. HEART/CARDIOVASCULAR: Regular in rate and rhythm. S1 and S2 positive. ABDOMEN: Abdomen is soft, nontender. Patient has normal bowel sounds. SKIN: There is no rash. Warm and dry. NEURO: No focal motor deficit. Follows command. MUSCULOSKELETAL: No joint effusion or tenderness. EXTRIMITY: No edema, no cyanosis or clubbing. PSYCH: Cooperative. - Constitutional Vitals: Temp Pulse Resp BP Pulse Ox 97.3 F L 89 16 143/76 100 09/22/21 09:25 05/03/21 09:25 05/03/21 09:25 05/03/21 09:25 05/03/21 07:01 Plan Activity: advance as tolerated Weight Bearing Status: Weight Bear as Tolerated Diet: renal Follow up with: OLLIE JEFFERSON,REGGIE CAMPBELL MD [Primary Care Provider] - 7 Days
[2021-05-03 14:52] LABS: Basophils % (Auto) 0.6 % (0.0-1.8); Eosinophils # (Auto) 0.1 K/mm3 (0.0-0.4); Eosinophils % (Auto) 2.7 % (0.0-4.3); Hemoglobin 9.1 gm/dl (10.1-14.3); Lymphocytes # (Auto) 0.2 K/mm3 (1.2-5.4); Lymphocytes % (Auto) 6.6 % (13.4-35.0); Mean Corpuscular HGB Conc 32 % (30-34); Mean Corpuscular Volume 86 fl (79-97); Monocytes # (Auto) 0.4 K/mm3 (0.0-0.8); Monocytes % (Auto) 12.2 % (0.0-7.3); Red Blood Count 3.24 M/mm3 (3.65-5.03); Red Cell Distribution Width 18.8 % (13.2-15.2)
[2021-05-03 15:25] LABS: Platelet Count 94 K/mm3 (140-440)
[2021-05-03 15:33] LABS: Calcium 8.9 mg/dL (8.4-10.2)
[2021-05-03 17:00] VITALS: BP 123/66
== END 2021-05-03 20:04 | disposition home or self-care (01) ==
LOC: ED 04:41 → 3A 07:35
PROVIDERS: ADMIT Internal Medicine; ATTEND Internal Medicine
DX: D64.9 Anemia, unspecified (principal); I13.2 Hypertensive heart and chronic kidney disease with heart failure and with stage 5 chronic kidney disease, or end stage renal disease; I50.9 Heart failure, unspecified; N18.6 End stage renal disease; E11.22 Type 2 diabetes mellitus with diabetic chronic kidney disease; M19.90 Unspecified osteoarthritis, unspecified site; G43.909 Migraine, unspecified, not intractable, without status migrainosus; J44.9 Chronic obstructive pulmonary disease, unspecified; E21.3 Hyperparathyroidism, unspecified; R56.9 Unspecified convulsions; Z99.2 Dependence on renal dialysis; Z79.82 Long term (current) use of aspirin; Z79.899 Other long term (current) drug therapy; Z98.890 Other specified postprocedural states; Z87.891 Personal history of nicotine dependence
CPT/HCPCS: 36415; 36430; 80048; 80074; 85025; 85610; 85730; 86850; 86870; 86900; 86901; 86922; 99284; A9270; G0257; G0378; J0885; J7030; J7040; P9016; 85007; 86920